=== PATIENT | male | born 1955 | race Caucasian/White ===

== ENCOUNTER → 2021-02-23 12:43 | Outpatient (CLI) | payer MEDICAID, SELFPAY ==
[2020-02-05 12:47] VITALS: BMI 27.9
--- NOTE | 2021-02-23 13:26 | SP.MBSS_ITS ---
Modified Barium Swallow - Patient Information Study Date: 02/23/21 Study Time: 12:50 Direct Billable Minutes: 110 Total Minutes procedure & reportin Diagnosis: dysphagia Referring Physician: Say Back Reason for Referral: This patient was referred for a modified barium swallow by Dr Say Back. The patient reports difficulty with swallowing, characterized by liquids getting stuck, they won't go up and they won't go down, for the reports that he is not able to breathe during these episodes and often runs to the sink to bring the liquid back up. The patient pointed to the area between his clavicular notch and thyroid notch to indicate the location where the sensation occurs. The patient further reports that these episodes occur approximately 3 to 4 times per month and have been ongoing for several years. 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 Surgical History: Cholecystectomy 2011, hernia repair RT/LT groin & umbilicus, tonsillectomy, presence of coronary artery angioplasty implant and graft 2007 Mental Status: WNL Respiratory Status: Oxygenating on Room Air - Penetration-Aspiration Scale Penetration-Aspiration Scale: OBJECTIVE ASSESSMENT OF SWALLOW FUNCTION (QUANTITATIVE ? PER TRIAL): PENETRATION / ASPIRATION SCALE (VILLAFANA): 1 = does not enter airway 2 = enters airway/above vocal folds/ejected 3 = enters airway/above vocal folds/not ejected 4 = enters airway/contacts vocal folds/ejected 5 = enters airway/contacts vocal folds/not ejected 6 = enters airway/below vocal folds/ejected 7 = enters airway/below vocal folds/not ejected despite effort 8 = enters airway/below vocal folds/no effort VIDEOFLOROSCOPIC SCALE SCORE (VILLAFANA): Grade I = aspiration of material that has penetrated into the laryngeal vestibule, intact cough reflex Grade II = aspiration < 10 % of the bolus, intact cough reflex Grade III = aspiration of < 10 % of the bolus, reduced cough reflex or aspiration of > 10 % of the bolus, intact cough reflex Grade IV = aspiration of > 10 % of the bolus, reduced cough reflex - Penetration-Aspiration Scale Score Thin Liquid via teaspoon Result: 2= enter airway/above vocal folds/ejected Thin Liquid via teaspoon Trial 2 Result: 1= does not enter airway Thin Liquid via large single sip from cup Result: 2= enter airway/above vocal folds/ejected Thin Liquid via small single sip from cup Result: 1= does not enter airway Pudding Result: 1= does not enter airway Pudding Trial 2 Result: 1= does not enter airway Cookie Result: 1= does not enter airway Thin Liquid via single sip from straw Result: 1= does not enter airway Thin Liquid via sequential sips from cup Result: 2= enter airway/above vocal folds/ejected - Oral Phase Labial Seal: No Labial Escape Tongue Control During Bolus Hold: Cohesive bolus between tongue to palatal seal Bolus Preparation/Mastication: Slow prolonged chewing/mashing with complete recollection Bolus Transport/Lingual Motion: Repetitive/disorganized tongue motion Oral Residue: Residue collection on oral structures - Pharyngeal Phase Initiation of Pharyngeal Swallow: Bolus head in pyriforms Soft Palate Elevation: No bolus between soft palate and pharyngeal wall Laryngeal Elevation: Min superior movement thyroid cart/min apprx aryte cart- epig petiole Anterior Hyoid Excursion: No anterior movement Epiglottic Movement: Partial inversion Laryngeal Vestibule Closure at Height of Swallow: Incomplete; narrow column of air/contrast in laryngeal vestibule Pharyngeal Stripping Wave: Present - complete Pharyngoesophageal Segment Opening: Parital distension and partial duration; parital obstruction of flow Tongue Base Retraction: Narrow column of contrast between tongue base & post. pharyngeal wall Pharyngeal Residue: Collection of residue within or on pharyngeal structures - Esophageal Phase Esophageal Clearance: Esophageal retention w/ retrograde flow through pharyngoesophageal seg - Diagnosis/Impression Diagnosis: mild oropharyngeal dysphagia Impression: This patient presents with mild oropharyngeal dysphagia characterized by the following: * slowed oral prep w/ reduced efficacy of lingual movement, requiring multiple lingual sweeps to clear thicker viscosity boluses from the oral cavity * reduced base of tongue retraction resulted in decreased pharyngeal contraction/pressure w/ residue retention on the BOT post deglutition * premature pharyngeal bolus entry/delayed swallow onset w/ thin liquid pooling in the pyriform sinuses prior to swallow initiation * significantly reduced hyolaryngeal excursion w/ minimal anterior hyoid excursion, resulting in incomplete epiglottic inversion and suboptimal pharyngoesophageal segment distention/duration of muscle relaxation w/ subsequent pharyngeal residue accumulation along the tip of the epiglottis and win the pyriform sinuses * laryngeal vestibule penetration occurred w/ thin liquids 2x; partial bolus clearance through the PES followed by transient penetration when swallowing the remainder of the bolus d/t reduced arytenoid to epiglottic petiole contact * penetration was above the level of the vocal folds and ejected completely * esophageal retention evident w/ retrograde bolus flow through the PES into the pyriform sinuses Highly suspect that the symptoms reported by the patient which precipitated referral for this MBS are due to reduced strength and coordination of the oropharyngeal swallowing mechanism, which is potentially exacerbated by cricopharyngeal spasm/dysfunction and impaired esophageal clearance w/ retrograde bolus flow of contrast from the esophagus through the pharyngoesophageal segment into the pharynx. The patient reports that this issue has been occurring 3-4x/month for several years. Further assessment and intervention should be considered if desired by the patient. He appears to be sufficiently compensating for the above mentioned deficits to date, but is at risk for aspiration and worsening of dysphagia if the patient were to decompensate in any way. - Recommendations Diet: Regular Textures, Thin Liquids Compensatory Strategies: Slow Rate, Sitting upright, Remain sitting upright for 30 minutes after PO intake Recommend Repeat Modified Barium Swallow: TBD Need for Skilled Speech Therapy Services: Yes - pharyngeal strengthening exercise program Recommended Referrals: ENT Consult - see above impression re: pharyngoesophageal segment/cricopharyngeus Education Completed: 1. Described result of evaluation., 2. Pt understands evaluation & agrees with goals and treatment plan. - Image Count: [phone] - Status Active ST Patient: Active - Contact Information [facility] Speech Therapy:: Colette Hyamn M.A., CCC-SHAKE MAKER [address] [place], [place] [address] [email or web address]
== END ==
PROVIDERS: PCP Preventive Medicine Occupational Medicine; Referring Provider Preventive Medicine Occupational Medicine; Visit Provider Preventive Medicine Occupational Medicine
DX: R13.12 Dysphagia, oropharyngeal phase (principal)
CPT/HCPCS: 74230; 92611

== ENCOUNTER → 2023-06-13 | Outpatient (CLI) | payer MEDICARE, MEDICAID, SELFPAY ==
--- NOTE | 2023-06-13 14:25 | CT_ITS ---
INDICATION: ventral hernia, hx of hernia repair -- No contrast EXAMINATION: CT ABDOMEN WITHOUT CONTRAST - CT Abdomen W/O Contrast Injection TECHNIQUE: Multiple axial images were obtained of the abdomen without oral or IV contrast. A radiation dose optimization technique was used for this scan. IV Contrast dosage and agent: None. Oral contrast: None. RADIATION DOSAGE (If Supplied By Facility): CTDIvol = ( 10.47 ) mGy, DLP = ( 332.47 ) mGycm COMPARISON: Abdominal ultrasound February 07, 2014; CT abdomen and pelvis February 03, 2012 FINDINGS: LOWER CHEST: Lung bases are clear. No cardiomegaly or pericardial effusion. Atherosclerotic calcification seen in the coronary arteries and distal descending thoracic aorta. LIVER: Homogeneous. No focal mass. GALLBLADDER AND BILIARY TREE: Surgical clips of prior cholecystectomy noted at the gallbladder fossa. No intra- or extrahepatic biliary ductal dilation. PANCREAS: No focal cystic or solid mass. SPLEEN: Normal size without focal cystic or solid mass. ADRENAL GLANDS: No nodules. KIDNEYS AND URETERS: Normal renal size and position. 1 mm calcification that may be a nonobstructing calyceal stone is again seen at the mid pole of the right kidney. No hydronephrosis or nephrolithiasis. PERITONEUM: No ascites or free air. No other fluid collection. Just below the inferior margin of the appendix near the edge of the [id number] is a pair of metal surgical clips in the right lower quadrant. BOWEL: No stomach or bowel distension. No focal inflammatory change. LYMPH NODES: No enlarged mesenteric or retroperitoneal lymph nodes. VESSELS: Diffuse moderate atherosclerotic calcific plaquing of the abdominal aorta and proximal iliac arteries again noted. There is 2.2 cm fusiform dilatation of the distal infrarenal aorta. ABDOMINAL WALL: Stable 1 cm midline supraumbilical abdominal wall defect allowing for a stable 3.4 x 2.4 x 3.15 cm herniation of fat. BONES: Minor degenerative changes of the lumbar spine. No lytic or blastic abnormality. CT/Abdomen without IV Contrast IMPRESSION: 1. Stable small, fat-containing, midline supraumbilical anterior abdominal wall hernia. 2. Prior cholecystectomy. 3. Atherosclerotic vascular calcifications again seen. 2.2 cm fusiform dilatation of the distal infrarenal aorta. 4. Stable 1 mm nonobstructing stone at the midpole of the right kidney. No hydronephrosis. Electronically Signed: Yoel Jackson MD at 15:44 EDT Reading Location ID and State: [id number] / Unknown , Service support ,
== END | disposition home or self-care (01) ==
LOC: CT 14:21
PROVIDERS: PCP Preventive Medicine Occupational Medicine; Referring Provider Surgery; Visit Provider Surgery
DX: K46.9 Unspecified abdominal hernia without obstruction or gangrene (principal)
CPT/HCPCS: 74150

== ENCOUNTER → 2023-06-30 | Outpatient (CLI) | payer MEDICARE, MEDICAID, SELFPAY ==
--- NOTE | 2023-06-30 11:01 | CDU_ITS ---
Reason For Study: Right Retinal Artery Branch Occlusion Rt. Velocities/BP Lt. Velocities/BP Prox CCA 71.0/8.4 cm/sec. Prox CCA 58.9/14.9 cm/sec. Mid CCA 62.2/14.9 cm/sec. Mid CCA 45.7/16.0 cm/sec. Dist CCA 57.2/16.2 cm/sec. Dist CCA 89.1/21.6 cm/sec. Prox ICA 59.8/15.4 cm/sec. Prox ICA 81.8/14.2 cm/sec. Mid ICA 71.4/22.3 cm/sec. Mid ICA 73.2/22.8 cm/sec. Dist ICA 101.4/22.8 cm/sec. Dist ICA 63.0/21.5 cm/sec. Rt. ICA/CCA = 1.6. Lt. ICA/CCA = 1.8. Prox ECA 92.7/19.0 cm/sec. Prox ECA 92.4/19.4 cm/sec. Rt. Vert. 63.4/14.2 cm/sec. Lt. Vert. 40.2/11.7 cm/sec. Right Extracranial There is heterogeneous, irregular atherosclerotic plaque noted in the right common carotid artery. There is heterogeneous, irregular atherosclerotic plaque noted in the right internal carotid artery. There is heterogeneous, irregular atherosclerotic plaque noted in the right external carotid artery. Antegrade flow is noted in the right vertebral artery. Left Extracranial There is heterogeneous, irregular atherosclerotic plaque noted in the left common carotid artery. There is heterogeneous, irregular atherosclerotic plaque noted in the left internal carotid artery. There is heterogeneous, irregular atherosclerotic plaque noted in the left external carotid artery. Antegrade flow is noted in the left vertebral artery. Procedure Carotid Duplex 02695. This is a Carotid Duplex examination using B-mode, color flow and specral Doppler. The exam was diagnostic. Exam performed in department. VL/Carotid Duplex Ultrasound Interpretation Summary Mild (<50%) stenosis right extracranial internal carotid. Mild (<50%) stenosis left extracranial internal carotid. Patent and antegrade vertebrals bilaterally. Ordering Physician: Jayesh Stein Referring Physician: Say Back Performed By: Kelvin Ryder RVT
== END | disposition home or self-care (01) ==
LOC: CVS 11:00
PROVIDERS: PCP Preventive Medicine Occupational Medicine; Referring Provider Ophthalmology; Visit Provider Ophthalmology
DX: H34.231 Retinal artery branch occlusion, right eye (principal)
CPT/HCPCS: 93880

== ENCOUNTER 2023-08-28 11:12 | Day surgery (SDC) | payer MEDICARE, MEDICAID, SELFPAY ==
[2023-08-21 10:26] LABS: Absolute Lymphocyte Count 4.97 X10^3/uL (0.83-4.51); Absolute Neutrophil Count 6.4 X10^3/uL (2.0-7.7); Basophil# 0.07 X10^3/uL; Basophil% 0.5 % (0-1); Eosinophil# 0.29 X10^3/uL; Eosinophils% 2.3 % (0-5); Hematocrit 44.6 % (40-54); Hemoglobin 14.5 g/dL (13.0-16.5); Lymphocyte # 4.97 X10^3/ul (0.83-4.51); Lymphocyte % 38.8 % (19-41); Mean Corp Hgb Conc 32.5 g/dL (32-36); Mean Corpuscular Hgb 28.2 pg (27.0-32.0); Mean Corpuscular Volume 86.6 fL (80-94); Mean Platelet Vol. 9.2 fl (6.2-12.0); Monocyte# 1.01 X10^3/uL; Monocyte% 7.9 % (0-10); NRBC Flagged by Analyzer 0 % (0-5); Neutrophil # 6.43 X10^3/uL (2.7-7.7); Neutrophil % 50.3 % (47-70); Platelet Count 334 K/mm3 (150-450); RBC Distribution Width CV 14.5 % (11.6-14.6); RBC Distribution Width SD 46.4 fl (35.1-43.9); Red Blood Count 5.15 M/mm3 (4.6-6.2); White Blood Count 12.8 K/mm3 (4.4-11.0)
[2023-08-21 11:01] LABS: Hemoglobin A1c 6.2 % (3.8-5.6)
[2023-08-21 11:06] LABS: Anion Gap 6 (5-15); BUN 12 mg/dL (7-18); BUN/Creat Ratio 10.3 RATIO (10-20); Calcium,Total 9.2 mg/dL (8.5-10.1); Chloride 108 mmol/L (98-107); Creatinine, Serum 1.17 mg/dL (0.70-1.30); EST Glomerular Filtration Rate 66 mL/min (>60); Est Glom Filt Rate - Afr Amer 80 mL/min (>60); Glucose 197 mg/dL (74-106); Potassium 3.6 mmol/L (3.5-5.1); Sodium Level 139 mmol/L (136-145)
[2023-08-28 11:46] VITALS: BP 169/75; PULSE 78; RESP 18; TEMP 36.2; O2SAT 100; BMI 25.0
[2023-08-28] MEDS: Lactated Ringers 1,000 ML 15 ML IV ×2 (11:54→14:39)
--- NOTE | 2023-08-28 11:56 | PCM.HP.BLA ---
History and Physical Date of Admission: 08/28/23 Date of Service: 08/07/23 MR#: [id number] Acct: [id number] Name: ESTEBAN JAMISON . Rep #: [id number] : 1955 Provider: Dr. Chary Fontaine MD Age/Sex: 68/M Location: [facility] Status: Signed Intake Vital Signs 06/09/2309:42 08/07/2314:09 Height 5 ft 6 in 5 ft 6 in Weight: 166 lb 164 lb 4 oz BMI 26.8 26.5 BP 134/78 H 163/91 H Blood Pressure Location Rt brachial Rt brachial Position Sitting Sitting Respiration 17 17 Pulse 71 67 Pulse Source Monitor Monitor Temp 98.0 F Temp Source Tympanic Pulse Oximetry (%) 97 Intake Visit Reasons: Update H&P Chief Complaint: update h&p Allergies atorvastatin calcium [From Lipitor] Adverse Reaction (Verified 08/07/23 14:11) Pain in joints Medications metformin 500 mg tablet 500 mg PO BID 02/04/14 [History Confirmed 08/07/23] fenofibrate 160 mg tablet 160 mg PO DAILY #30 tabs 12/17/18 [Rx Confirmed 08/07/23] rosuvastatin 40 mg tablet (Crestor) 40 mg PO DAILY 06/05/19 [History Confirmed 08/07/23] lisinopril 40 mg tablet 40 mg PO DAILY #90 tabs 12/13/21 [Rx Confirmed 08/07/23] nitroglycerin 0.4 mg sublingual tablet 0.4 mg sublingual Q5M PRN Chest Pain #25 tabs 03/21/22 [Rx Confirmed 08/07/23] aspirin 325 mg tablet,delayed release 325 mg PO DAILY@0800 PRN 04/28/23 [History Confirmed 08/07/23] clopidogrel 75 mg tablet 75 mg PO DAILY #90 tabs 04/28/23 [Rx Confirmed 08/07/23] [facility] Medical History Acute TN, anterior wall, subsequent episode of care Atherosclerotic heart disease of [place] coronary artery without angina pectoris Chest pain Dyspnea Essential hypertension Hyperlipidemia Long-term use of high-risk medication Old myocardial infarction Presence of stent in coronary artery (~08/2008) Syncope and collapse Ventral incisional hernia without obstruction or gangrene Surgical History (Updated 08/07/23 @ 14:09 by Desirae Collado) History of cataract surgery History of cholecystectomy (~02/2012) History of hernia repair History of tonsillectomy History of umbilical hernia repair Presence of coronary angioplasty implant and graft (~08/2008) Family History Father CAD (coronary artery disease) Diabetes Thyroid disorder Hypertension Cancer lungMother Hypertension AneurysmBrother CAD (coronary artery disease)Sister Congestive heart failure Social History Smoking Status: Current every day smoker alcohol intake: current HPI HPI HPI: 68-year-old male presents due to ventral hernia to discussed CT abdomen pelvis and surgery. Discussed patient's CAT scan does show his current ventral hernia is directly superior to the previous hernia repair with mesh. Patient states he is still having tenderness in that area but it is reducible. ROS General General: Yes weight change and fatigue; No appetite, colon cancer, breast cancer or weakness HEENT HEENT: Yes difficulty swallowing and eye surgery; No eye injury, swollen glands or hoarseness Endo Endocrine: Yes diabetes mellitus; No thyroid disease, thyroid cancer, Hair loss, heat intolerance or cold intolerance Skin Skin: No rash or changing moles Breast Breast: No left breast lump, right breast lump, nipple discharge, breast pain, abnormal mammogram, abnormal US or breast enlargement Musc Musculoskeletal: Yes back problems and arthritis; No rheumatoid arthritis, gout or joint pain Cardio Cardiovascular: No murmur, pacemaker, heart disease, atrial fibrillation, high blood pressure, heart attack, heart stent, palpitations, shortness of breat with exertion or chest pain Psych Psychiatric: No depression, anxiety or hearing voices Resp Respiratory: No shortness of breath, No sleep apnea, No cough, No COPD, No asthma, No emphysema and No wheezing Gastro Gastrointestinal: No abdominal pain, No nausea or vomiting, No diarrhea, No constipation, No blood in stool, No acid reflux, No hemorrhoids, No ulcers, No gallbladder problem and No black,tarry stools Jalen Hematologic: No blood thinners, No blood disorders, No bleeding, No anemia and No blood clots Neuro Neurologic: No system reviewed and no additional complaints, except as documented, No as per HPI, No abnormal gait, No abnormal hearing, No abnormal movements, No abnormal speech, No behavioral changes, No burning sensations, No confusion, No convulsions, No disequilibrium, No dizziness, No localized weakness, No frequent falls, No headache(s), No lack of coordination, No loss of vision, No memory loss, Yes numbness, No other visual disturbances, No radicular pain, No restless legs, No sensory deficit, No syncope, Yes tingling, No tremor(s), No weakness and No other Exam Const General: cooperative, healthy appearing, comfortable and no acute distress [facility] Head: normocephalic and atraumatic Neck Neck: supple Resp Effort & Inspection: normal respiratory effort Cardio Rate: regular rate GI Inspection: non-distended Palpation: soft, hernia ventral (Reducible) and nontender Other: Patient does have a reducible ventral hernia Skin General: no rashes or lesions noted Neuro General: CN's II-XI intact bilaterally Extrem General: normal to inspection Psych Mental Status: mental status grossly normal Attitude: cooperative Assessment and Plan Assessment and Plan (1) Ventral hernia: Status: Acute Plan We will plan for an open hernia repair with mesh, possible laparoscopic, possible removal of mesh. Discussed with patient CT abdomen pelvis that showed that his new hernia defect is directly superior to his previous mesh. Discussed with patient unsure if I will be able to do a smaller mesh under an open approach if there is not a landing zone for the mesh to lay flat. Discussed that if this is not the case would plan to do a laparoscopic placement of mesh but I would not be planning to remove the previous mesh if it is intact well. Discussed the procedure including not limited to risk of bleeding, infection, injury to another organ, recurrent hernia, and anesthesia. Patient was agreeable with plan. Had no further questions this time. Agreed to proceed. Chary Fontaine M.D. Pager: [phone] [facility] [address] [place] [address], [facility], [address] [place] [address] Office: [phone] Coding Level of Care Code Off vis,est,level 3 Diagnoses Ventral hernia K43.9 08/08/23 0728 <Electronically signed by Chary Fontaine MD> Date Chary Fontaine MD
[2023-08-28 12:24] LABS: Bedside Glucose 110 mg/dL (74-106)
[2023-08-28] MEDS: Cefazolin 2 GM in 0.9% Normal Saline (100mL Bag) 100 ML IV (12:53)
--- NOTE | 2023-08-28 13:51 | OP.PCM_ITS ---
Report of Operation Date of Procedure: 08/28/23 Pre-Operative Diagnosis: Ventral hernia Post-Operative Diagnosis: Ventral hernia x2 Surgery/Procedure Performed:: Open/laparoscopic repair of ventral hernias with mesh Surgeon: Chary Fontaine farm general manager: Dickson Nunez Type of Anesthesia: General/Supplemental Anesthesiologist: Phani Oneil Special Medications: Ancef 2 g IV x1 Specimen's removed: None Estimated Blood Loss (mL): 10 cc Fluids Replaced: Per anesthesia Description of Procedure: Patient was brought into the room placed supine on the operating table. Correct patient, procedure, site, positioning, special, was verified prior to procedure. General anesthesia was induced. The abdomen was prepped draped in usual sterile fashion. Supraumbilical midline incision was made with a 15 blade scalpel overlying ventral hernia. This was deepened with electrocautery. Fascial defect with noted to be about 1.2 cm. Emmanuel trocar was placed. Abdomen was insufflated with CO2 to 12 to 15 mmHg. Patient tolerated insufflation well. Additional 5 mm trocars were placed in the left upper quadrant left lower quadrant under direct visualization. Adhesions from omentum to previously placed umbilical mesh were as cleared with electrocautery and scissors?previous mesh was well incorporated. There is noted to be another smaller ventral hernia about 5 mm in size as well. Ventralight ST mesh with echo PS 11.4 cm diameter was chosen. This was placed through the Emmanuel trocar. The hernia was closed with a [id number] 0 Prolene suture. Mesh was assured to be laying flat with the positioning system. Secure strap was used to secure outer edge of the mesh, the positioning system was removed completely through a 5 mm trocar site. Additional secure strap tacks were placed. Trocars removed under direct visualization. Abdomen was allowed to collapse. Incisions were irrigated with saline. Hemostasis was assured. The skin of the supraumbilical incision and 5 mm sites were closed with 4-0 Monocryl. Steri- Strips and OpSite placed over the incisions. Pressure dressing was placed at the supraumbilical incision with gauze and tape. Patient was extubated. Patient tolerated procedure well and was taken to the postanesthesia care unit in stable condition. Grafts/Implants Used: Ventralight ST mesh 11.4 cm ref [id number] Lot [id number] Complications none
[2023-08-28] MEDS: Bupivacaine Mpf 0.5% 30 ML VIAL (13:55)
--- NOTE | 2023-08-28 13:59 | DCINST_ITS ---
Discharge Instructions Diet Discharge Diet: No restrictions Activity Discharge Activity: May Not Drive (while taking narcotic pain medications.) May shower in (days): 1 Lifting Restrictions: no lifting >20 lbs x 2 wks, no strenuous exercise for 4 wks Dressing / Incision Call your doctor if your incision/area has: Continuous Slow Oozing, Sudden Increased Bleeding, Increased Pain/ Swelling, Increased Redness, Foul Smelling Discharge and Swelling at the incision site Call your doctor if you observe: Fever of 101 or Higher Remove Dressing in: 2 days (Keep supraumbilical pressure dressing in place for 2 days) Cleanse incision/area with: Soap & Water Additional Dressing/Incision Instructions:: Steri-Strips will fall off in 7 to 10 days, if they do not fall off okay to remove after 10 days. Follow Up Care Please Follow Up With: Chary Fontaine MD When: Call the office for a follow-up appointment 2 weeks; after 5 PM and on the weekends call [phone] with any concerns. Test Results: Test results from this visit will be discussed in further detail at your follow- up appointment, if applicable. Discharge Plan Admission Attending Provider: Chary Fontaine Primary Care Provider: Say Back Discharge Orders/Prescriptions Prescriptions: New oxycodone-acetaminophen 5-325 mg tablet 1 - 2 tab PO Q6H PRN (Reason: pain) 3 Days Qty: 14 0RF Continued fenofibrate 160 mg tablet 160 mg PO DAILY Qty: 30 11RF rosuvastatin [Crestor] 40 mg tablet 40 mg PO DAILY nitroglycerin 0.4 mg tablet, sublingual 0.4 mg SUBLINGUAL Q5M PRN (Reason: Chest Pain) Qty: 25 3RF metformin 500 MG tablet 500 mg PO DAILY baclofen 10 mg tablet 10 mg PO TID PRN (Reason: MUSCLE SPA) Patient Comments: take 1 tablet by mouth three times a day if needed for SPASM(S) aspirin [Adult Aspirin Regimen] 81 mg tablet,delayed release (DR/EC) 81 mg PO DAILY Hold Instructions: Resume on 08/29/23. lisinopril 40 mg tablet 40 mg PO DAILY Qty: 90 3RF Held clopidogrel 75 mg tablet 75 mg PO DAILY Qty: 90 3RF Hold Instructions: Resume on 08/29/23. Other Ambulatory Orders: 12 Lead EKG (Routine) Timeframe: [id number] Location: None Selected Ordered By: Dr. Aaron Jacques Referrals / Follow Up: Say Back DO [Primary Care Provider] - Disposition Disposition (needs filled in before D/C Order can be placed): Home, Self Care
[2023-08-28 14:11] VITALS: BP 131/82; BP 169/75; PULSE 88; RESP 16; TEMP 36.3; O2SAT 98
[2023-08-28 14:15] VITALS: BP 123/69; BP 169/75; PULSE 78; RESP 16; O2SAT 93
[2023-08-28 14:30] VITALS: BP 127/71; BP 169/75; PULSE 76; RESP 14; O2SAT 95
[2023-08-28 14:30] LABS: Bedside Glucose 119 mg/dL (74-106)
[2023-08-28 14:50] VITALS: BP 130/64; BP 169/75; PULSE 77; RESP 14; TEMP 36.6; O2SAT 97
[2023-08-28] MEDS: Oxycodone/Apap 5/325 Tablet PO (15:12)
[2023-08-28 15:35] VITALS: BP 169/75
== END 2023-08-28 15:38 | disposition home or self-care (01) ==
LOC: SDC 11:13 → AC 11:40
PROVIDERS: Anesthesiology; PCP Preventive Medicine Occupational Medicine; Referring Provider Surgery; Visit Provider Surgery
PROC: 0WQF4ZZ Repair Abdominal Wall, Percutaneous Endoscopic Approach (ICD-10-PCS; CPT 49591; principal; 2023-08-28 12:35)
DX: K43.2 Incisional hernia without obstruction or gangrene (principal); E11.9 Type 2 diabetes mellitus without complications; I25.10 Atherosclerotic heart disease of native coronary artery without angina pectoris; I25.2 Old myocardial infarction; I10 Essential (primary) hypertension; E78.00 Pure hypercholesterolemia, unspecified; F17.200 Nicotine dependence, unspecified, uncomplicated; Z79.02 Long term (current) use of antithrombotics/antiplatelets; Z79.82 Long term (current) use of aspirin; Z79.84 Long term (current) use of oral hypoglycemic drugs; Z79.899 Other long term (current) drug therapy
CPT/HCPCS: 49591; 00752; 36415; 80048; 82962; 83036; 85025; 93005; J7120; J2405

== ENCOUNTER → 2024-12-11 | Outpatient (CLI) | payer MEDICARE, SELFPAY ==
--- NOTE | 2024-12-11 09:05 | RAD_ITS ---
STUDY: X-RAY - ESOPHAGUS (BARIUM SWALLOW) WITH FLUOROSCOPY REASON FOR EXAM: Male, 69 years old. ACHALASIA TECHNIQUE: 68 fluoroscopic view(s) of the esophagus were obtained following swallowing of barium. FLUOROSCOPY TIME (if supplied): (46 seconds) minutes/seconds. 2.6 mGy. COMPARISON: None. FINDINGS: There is no demonstrated esophageal foreign body. There is no demonstrated stricture or mucosal abnormality. There is dilatation of the esophagus with the decreased peristaltic activity. There is narrowing at the gastroesophageal junction. Findings suggestive of a achalasia. The patient ingested a 12 mm tablet of barium. The tablet is trapped at the gastroesophageal junction. There is atherosclerotic calcification of the aortic arch with tortuosity of the descending aorta. Normal visualized pulmonary parenchyma. Normal visualized osseous structures of the thorax. RAD/Esophagus Single Contrast IMPRESSION: Findings suggestive of achalasia. The ingested 12 mm tablet of barium is trapped at the gastroesophageal junction. Electronically Signed: Evans Carvajal MD at 9:36 EST ,
== END | disposition home or self-care (01) ==
PROVIDERS: PCP Preventive Medicine Occupational Medicine; Referring Provider Internal Medicine Gastroenterology; Visit Provider Internal Medicine Gastroenterology
DX: K22.0 Achalasia of cardia (principal)
CPT/HCPCS: 74220

== ENCOUNTER → 2025-03-11 | Outpatient (CLI) | payer MEDICARE, MEDICAID, SELFPAY ==
--- NOTE | 2025-03-11 09:00 | PET_ITS ---
PROCEDURE: PET/CT TUMOR BASE -THIGH INIT 03/11/2025 REASON FOR EXAM: 69 y/o M with RIGHT LOWER LUNG MASS TECHNIQUE: Following the intravenous administration of radionucleotide, image acquisition on a dedicated PET/CT unit was performed at one hour post injection. A preliminary CT study encompassing the Skull base, neck, chest, abdomen, pelvis, and proximal thighs was performed for purposes of attenuation correction and anatomic localization. The proximal thighs were also included. The patient's blood glucose level was 78 mg/dL (allowable range: 50-180 mg/dL). RADIOPHARMACEUTICAL: 14.129 mCi 18F-FDG (Fluorodeoxyglucose F18) IV was injected into he patient. RADIATION DOSE SUMMARY: Effective Dose: Approximately 7 mSv for a standard whole-body PET scan Organ Doses: Varies by organ, with higher doses typically to the bladder, liver, and brain COMPARISON: COMPARISON FROM CT, PET OR OTHER PERTINENT EXAMS: No priors available. FINDINGS: Physiologic uptake: There may be expected metabolic uptake within the brain, tongue and floor of the mouth and larynx/vocal cords, heart, gavin (many normal individuals have hilar uptake in less than 3 nodes with mildly avid hilar nodes less than 2.7 SUV), liver and spleen, system, and GI tract and symmetric muscle uptake. FDG AVID AND NON-AVID LESIONS. Reported avid SUV values (g/mL*) are maximum SUV. NECK: There are no significant neck abnormalities. CHEST: Chest wall- There are no significant chest wall abnormalities. Axilla- There are no significant axillary abnormalities. Lung parenchyma-in the area of clinical concern, in the nodule of the posterior right lower lobe, increased SUV max is seen, of 2.9. This is concerning for a primary malignancy. Mediastinum- There are no significant hilar or mediastinal adenopathy. Pleura- There are no significant pleural abnormalities. Moderate coronary artery calcification is noted. 1 2 to listen to free or ABDOMEN: Stomach- No significant abnormalities. Liver- No significant abnormalities. Prior cholecystectomy. Spleen- No significant abnormalities. Pancrease- No significant abnormalities. Kidneys- No significant abnormalities. Bowel- Normal bowel activity. Spine- No significant abnormalities. Prominent arterial calcification is seen; no evidence of abdominal aortic aneurysm. Uptake was E was a Elvin raúl and once her name shows prior just leaving a message consistent answer PELVIS: Bowel- Normal physiologic bowel activity is identified. Masses- There are no pelvic masses. LOWER EXTREMITIES: Bones- With the use of bone window settings, there are no osteolytic or osteoblastic lesions. There are no FDG avid lesions within the visualized portion of the axial skeleton. PET/PET/CT Tumor Base -Thigh Init IMPRESSION: FDG avid-increased uptake with SUV max of 2.9 in the area of clinical concern o f the nodule of the posterior right lower lobe, concerning for the presence of malignancy. No additional focus of abnormal upt alfred is noted. Please note the low-dose CT scan was performed to facilitate PET image reconstr uction and anatomic localization and does not replace a diagnostic CT. Any diagnostic CT requested and performed at the time of the PET will be reported separately. Reading Location: [id number]
== END | disposition home or self-care (01) ==
LOC: ONC 08:52
PROVIDERS: PCP Preventive Medicine Occupational Medicine; Referring Provider Preventive Medicine Occupational Medicine; Visit Provider Preventive Medicine Occupational Medicine
DX: R91.8 Other nonspecific abnormal finding of lung field (principal)
CPT/HCPCS: 78815; A9552

== ENCOUNTER 2025-05-17 09:29 | Inpatient (IN) | payer MEDICARE, MEDICAID, SELFPAY ==
[2025-05-17] VITALS (16 sets, daily range): BP systolic 128–188; BP diastolic 54–94; PULSE 75–93; RESP 14–18; TEMP 36.3–36.8; O2SAT 94–100; BMI 27.8
[2025-05-17] MEDS: Ketorolac 30 MG/ML Syringe 15 MG IV (09:52)
[2025-05-17] MEDS: Triamcinolone Acetonide 40 MG/ML Vial IU (09:54)
[2025-05-17] MEDS: Lidocaine 1% (20 ml mdv) 20 ML Vial INFILT (09:54)
[2025-05-17 10:02] LABS: Erythrocyte Sedimentation Rate 45 mm/hr (0-20)
--- NOTE | 2025-05-17 10:11 | ED.VIS.BACK ---
HPI History of Present Illness Chief Complaint: Back Detail of Chief Complaint: Back pain that started prior to left knee pain and swelling Informant: patient Onset/Context/Timing Onset: Weeks (Back pain for approximately 1 week, knee pain for the past several days) Context: Sudden Onset Injury: - (No history of direct trauma. He did do some slight lifting prior to the onset of his back pain. Nothing with respect to the knee pain) Timing: Continuous (For both) Quality: Dull (Lower back) and Aching (Left knee) Location: Lumbar, Buttock and Left Leg Current Severity: Mild Maximum Severity: Moderate Worsened by: improves with Movement Relieved by: Nothing Associated Symptoms Associated Symptoms: Radiation to Left Leg and - (No status anesthesia or paresthesia.); Negative for Numbness, Tingling, Radiation to Right Leg, Fever, Abdominal Pain, Dysuria, Unable to Ambulate, Unable to Transfer, Urinary Retention, Urinary Incontinence, Constipation or Fecal Incontinence Narrative Narrative: Patient is a 69-year-old male. He has history of syncope and collapse, essential hypertension, coronary disease with stent placement, and GERD. He presents with atraumatic low back pain. Does have history of indirect trauma of lifting. He reported pain going down the posterior aspect of his left leg to his heel/foot. He denies any radicular pain at this time. He denied bowel bladder function. No saddle paresthesia or anesthesia. She had no recent dental procedure. He denies fever, chills night sweats. He does have history of back problems. With respect to the knee he states it began to swell and have pain. He denies history of gout or pseudogout. He denies any direct or indirect trauma. He had a prior injury where a lawnmower blade went into his knee. There is a scar noted. Prior similar symptoms: Yes and With Prior Back Pain Recent Illness/Hospitalization: No [facility] Medical History Diabetes High cholesterol Back pain Gastric reflux Smoker Cardiology follow-up encounter Presence of stent in coronary artery (~08/2008) Essential hypertension Ventral incisional hernia without obstruction or gangrene Hyperlipidemia Acute IN, anterior wall, subsequent episode of care Old myocardial infarction Syncope and collapse Dyspnea Chest pain Long-term use of high-risk medication Atherosclerotic heart disease of circle coronary artery without angina pectoris Home Medications ?Medication ?Instructions ?Recorded ?Last Taken ?Type fenofibrate 160 mg tablet 160 mg PO DAILY #30 tabs 12/17/18 05/16/25 Rx rosuvastatin 40 mg tablet (Crestor) 40 mg PO DAILY 06/05/19 05/17/25 History lisinopril 40 mg tablet 40 mg PO DAILY #90 tabs 12/13/21 05/17/25 Rx aspirin 81 mg tablet,delayed 81 mg PO DAILY 08/17/23 05/16/25 History release (Adult Aspirin Regimen) clopidogrel 75 mg tablet 75 mg PO DAILY #90 tabs 05/22/24 05/17/25 Rx ezetimibe 10 mg tablet 10 mg PO DAILY 05/17/25 05/17/25 History hydrocodone-acetaminophen 5-325mg 1 tab PO Q6H PRN PRN Pain 3 days 05/17/25 Unknown Rx 5mg-325mg #10 TABLETS metformin 500 mg tablet,extended 500 mg PO BID 05/17/25 05/17/25 History release 24 hr oxycodone-acetaminophen 5 mg-325 1 tab PO Q6H 05/17/25 05/16/25 History mg tablet pantoprazole 40 mg tablet,delayed 40 mg PO DAILY 05/17/25 05/17/25 History release Allergy/AdvReac Type Severity Reaction Status Date / Time atorvastatin calcium (From AdvReac Pain in Verified 05/17/25 09:30 Lipitor) joints Family History Father CAD (coronary artery disease) Diabetes Thyroid disorder Hypertension Cancer lung Mother Hypertension Aneurysm Brother CAD (coronary artery disease) Sister Congestive heart failure Surgical History History of ventral hernia repair (~08/2023) History of coronary artery stent placement History of cardiac catheterization History of cataract surgery Presence of coronary angioplasty implant and graft (~08/2008) History of umbilical hernia repair History of cholecystectomy (~02/2012) History of hernia repair History of tonsillectomy Social History Smoking Status: Current every day smoker tobacco type: cigarettes alcohol intake: current alcohol intake frequency: holidays/special occasions only substance use type: does not use caffeine: Yes ROS ROS ED Constitutional Constitutional ED: Denies chills, fever(s), subjective or sweats Eyes Eyes: Denies blurry vision or change in vision ENT ENT ED: Denies rhinorrhea or sore throat Cardiovascular Cardiovascular: Denies chest pain, orthopnea, palpitations or paroxysmal nocturnal dyspnea Respiratory/Chest Respiratory/Chest: Denies dyspnea, dyspnea on exertion, orthopnea or paroxysmal nocturnal dyspnea Gastrointestinal Gastrointestinal: Denies abdominal pain, constipation, diarrhea, melena, nausea or vomiting Genitourinary Genitourinary ED: Denies dysuria, hematuria or urinary frequency Musculoskeletal Musculoskeletal: Reports back pain and other Details: Left knee pain and swelling ; Denies arthralgias, myalgias or neck pain Integumentary Denies abscess, Abrasions or rash Neurologic Neurologic: Denies headache(s), paresthesias or weakness Endocrine Endocrinology: Denies cold intolerance or heat intolerance Hematologic/Lymphatic Hematologic/Lymphatic: Denies easy bleeding or easy bruising EXAM Physical Exam Const Vital Signs: 05/17/25 09:30 Temperature 98.1 F Temperature Source Temporal Pulse Rate 93 Respiratory Rate 14 Blood Pressure 184/94 H Blood Pressure Mean 124 Pulse Ox 99 Oxygen Delivery Method Room Air Positive well nourished and well developed General Appearance ED: well developed and NAD HEENT Reports moist mucous membranes HEENT Narrative: Head is atraumatic and normocephalic. Ears normal. Nares patent. Eyes PERRL and EOMs intact bilaterally General Eye ED: Negative for pale conjunctiva or scleral icterus Neck no lymphadenopathy, supple and no JVD Resp normal respiratory effort and clear to auscultation bilaterally Cardio regular rate, regular rhythm, S1 normal heart sound, S2 normal heart sound and no murmurs GI normal to inspection, nondistended, normoactive bowel sounds, soft to palpation, non-tender, non-distended and no masses Back/Spine normal to inspection; Negative for no thoracic nor lumbar tenderness Back/Spine Narrative: Midline posterior lumbar pain. Movement does cause him pain. Straight leg test is negative bilaterally. Patellar reflex was not assessed on the left knee because of the significant swelling and pain. DTRs are symmetric. EHLs intact bilateral. He has a palpable PT and DP pulse bilaterally 3+. Normal sensation L3-S1 dermatome. 5/5 strength with plantar and dorsiflexion of the foot. Quadricep strength was not assessed because of his left knee pain and effusion. He still has hair on his toes. There are no dermatologic lesions noted. General Back: Negative for CVA tenderness Cervical Spine: Negative for paracervical muscle tenderness Lumbar Spine / Lower Back: ROM limited and straight leg raise negative bilaterally Extremity normal to inspection and no clubbing, cyanosis or edema Neuro oriented x3 and no sensory deficits noted Sensorium / Orientation: alert Deep Tendon Reflexes: Rt Patellar (L4): 2+, Rt Ankle (S1): 2+ and Lt Ankle (S1): 2+ Deep Tendon Reflexes Back: Rt Patellar (L4): 2+, Rt Ankle (S1): 2+ and Lt Ankle (S1): 2+ Plantar Reflex: Downgoing: bilateral (There was no clonus noted either) Psych mental status grossly normal Skin no rashes or lesions noted and no wounds MDM MDM MDM Narrative Medical decision making narrative: Suspect back pain is a muscular etiology. He does not have recent imaging and the fact that he is elderly diabetic will obtain x-ray to assess for degenerative changes versus spondylolisthesis versus lytic or blastic lesions. With respect to the knee need to evaluate for crystal induced versus osteogenic arthritis versus pyogenic arthritis. The knee does not feel slightly warm. Blood pressure is elevated which may due to the fact that he is in pain. He received 15 mg of ketorolac IV push. Workup included x-ray of the back and knee, blood work which included CBC, electrolyte panel, CRP and ESR. Lab Data Attestation: I reviewed the patient's lab results. Lab results narrative: ESR is slightly elevated 45. C-reactive protein is elevated at 19.8. White count is elevated 17.5 thousand. Differential is unremarkable. H&H is unremarkable. Labs: Laboratory Results - last 24 hr 05/17/25 05/17/25 09:50 11:32 WBC 17.5 H RBC 5.43 Hgb 15.5 Hct 46.6 MCV 85.8 MCH 28.5 MCHC 33.3 RDW Std Deviation 44.8 H RDW Coeff of Kranthi 14.3 Plt Count 297 MPV 9.1 Immature Gran % (Auto) 0.200 Neut % (Auto) 51.0 Lymph % (Auto) 37.9 [place] % (Auto) 9.4 Eos % (Auto) 1.0 Baso % (Auto) 0.5 Absolute Neuts (auto) 8.9 H Absolute Lymphs (auto) 6.61 H Nucleated RBC % 0 ESR 45 H Sodium 135 Potassium 4.0 Chloride 101 Carbon Dioxide 20.2 L Anion Gap 14 BUN 12 Creatinine 0.87 Estim Creat Clear Calc 80.05 Est GFR (MDRD) Non-Af 94 BUN/Creatinine Ratio 13.7 Glucose 112 H Calcium 9.6 Total Bilirubin 0.47 AST 19 ALT 9 Alkaline Phosphatase 66 C-React Prot Ext Range 19.80 H Total Protein 7.1 Albumin 4.0 Globulin 3.1 Albumin/Globulin Ratio 1.3 Fluid Crystals NO CRYSTALS SEEN Fluid Crystal Source SYNOVIAL Fl Crystal Path Review Will follow Synovial Source LT KNEE Synovial Color Yellow Synovial Appearance Cloudy Synovial Viscosity Mod. Viscous Synovial WBC 15.3600 H Synovial RBC 0.008 H Synovial Tot Cell Ct 15.3980 H Synov Polynuclear WBCs 11.969 Synov Mononuclear WBCs 1.353 Synovial Neutrophils 73 H Synovial Lymphocytes 1 Synovial Monocytes 26 Synovial Polynuclear % 89.8 Synovial Mononuclear % 10.[address] Comment May follow Radiography Chest X-Ray - ED: 2 View (2 view x-ray of the LS spine feels minimal degenerative changes with lipping of the vertebral body anteriorly. There is also significant ossification of the aorta and iliac vessels. There is no dilatation to suggest aneurysm. This was independent reviewed and interpreted by me as well.) and Read by ED Physician (Three-view x-ray of the knee reveals chondrocalcinosis with effusion. There is also some mild degenerative changes noted. This was independently reviewed interpreted by me at 1119.) Diagnostic Testing: Clinical Impression(s) from Imaging Studies Knee X-Ray 05/17/25 11:10 IMPRESSION: No acute fracture or dislocations. Mild to moderate degenerative changes of the left knee with chondrocalcinosis. Moderate soft tissue edema. Large joint effusion. No radiographic foreign body. Reading Location: [id number] Lumbar Spine X-Ray 05/17/25 11:10 IMPRESSION: No acute process identified. Degenerative disc disease Reading [facility] Management Discussion w/another healthcare provider: [employer] (Spoke to Dr. Gonzales. He will be in to see patient and take him to the OR for pyogenic arthritis based on Gram stain.) Procedures Other Procedures Procedure(s): Arthrocentesis left knee: Patient was informed the risk benefits. Was given opportunity ask questions. None were asked. He was informed of my complications. Patient was prepped draped sterile manner. There was anesthetized with 1% lidocaine by local infiltration. 70 cc of a slightly turbid initially bloody fluid was aspirated. A mixture of 9 cc lidocaine 1 cc Kenalog was injected after aspiration of fluid. Fluid was sent for appropriate studies. Discharge Plan Dx/Rx/DC Orders Clinical Impression: Septic arthritis of knee, left, Hyperlipidemia, Nicotine dependence, Essential hypertension, Acute bilateral low back pain, DDD (degenerative disc disease), lumbar, Abdominal aortic atherosclerosis, Chondrocalcinosis of left knee Disposition Disposition: Acute Care Hospital [facility]
--- OUTSIDE RECORDS SUMMARY | 2025-05-17 10:17 | XMS RPT_ITS | CCD ---
Author Organization [facility] Care Team Providers Care Machine Washer Name Role Phone Augusta Evans Unavailable CAMDEN BACK DO Primary Care Physician [phone] CAMDEN BACK DO Primary Care Physician [phone] Dr. Camden Back Primary Care Provider Dr. Camden Back Referring Provider [phone] Parag MORGAN, MYRNAC Mariaelena Attending Provider Dr. Chary Fontaine Attending Provider Dr. Aaron Roy Attending Provider Dr. Camden Back Primary Care Provider Dr. aCmden Back Referring Provider [phone] Dr. Jayesh Stein Referring Provider Dr. Chary Fontaine Referring Provider [phone] Dr. Chary Fontaine Other Provider CAMDEN BACK DO Attending Unavailable CAMDEN BACK DO Primary Care Unavailable CAMDEN BACK DO Attending Unavailable CAMDEN BACK DO Primary Care Unavailable Camden Back DO Primary Care Provider [phone] CAMDEN BACK DO Primary Care Unavailable CAMDEN BACK DO Attending Unavailable CAMDEN BACK DO Attending Unavailable CAMDEN BACK DO Primary Care Unavailable DR LOCO WILDE MD Attending Unavailjane e CAMDEN BACK DO Primary Care Unavailable Dr. Camden Back DO Primary Care Provider [phone] Dr. Loco Wilde MD Attending Provider Dr. Loco Wilde MD Referring Provider Dr. Camden Back DO Attending Provider Dr. Camden Back DO Referring Provider Cecil Sterling Attending Unavailable Camden Back Primary Care Unavailable Camden Back Referring Unavailable Camden Back Primary Care Unavailable Loco Wilde Attending Unavailable Loco Wilde Referring Unavailable Camden Back Primary Care Unavailable Camden Back Attending Unavailable Camden Back Referring Unavailable Allergies Allergy Classification Reported Allergen(s) Allergy Type Date of Onset Reaction(s) Facility (2 sources) atorvastatin drug allergy 3 muscle aches [facility] Work Phone: (3 sources) NKA drug allergy 2 [facility] Work Phone: (2 sources) ezetimibe; Translations: [ezetimibe] Drug Allergy 4 Pounding heart (finding) [facility] (1 source) atorvastatin Drug Allergy 4 [facility] Repository Medications Current Medications Medication Drug Class(es) Dates Sig (Normalized) Sig (Original) acetaminophen 325 mg / oxyCODONE hydrochloride 5 mg oral tablet (7 sources) Opioid Agonist Start: 09-24-2024 End: 11-22-2024 take 1 tablet by mouth every six hours acetaminophen-oxy CODONE 325 mg-5 mg oral tablet Dose = 1 tab(s), Oral, q6hr, # 120 tab(s), 0 Refill(s), Pharmacy: [facility] #[id number], Cervical disc disease Chronic neck and back pain, 167.5, cm, 10/21/24 7:55:00 EST, Height, 76.2, kg, 10/21/24 7:55:00 EST, Dosing Weight Start Date: 10/23/24 Stop Date: 11/22/24 Status: Ordered Start: 01-29-2024 End: 02-28-2024 take 1 tablet by mouth every six hours acetaminophen-oxyCODONE 325 mg-5 mg oral tablet Dose = 1 tab(s), Oral, q6hr, # 120 tab(s), 0 Refill(s), Pharmacy: [facility] #[id number], Cervical disc disease, 75.1, cm, 11/01/23 10:58:00 EST, Height, 75.1, kg, 11/01/23 10:58:00 EST, Dosing Weight Start Date: 01/29/24 Stop Date: 02/28/24 Status: Ordered Start: 08-28-2023 End: 09-12-2023 Oxycodone-Acetaminophen 5-32 5 mg tablet Discontinued 1 - 2 {tbl} PO EVERY 6 HOURS as needed for pain 14 August 28, 2023 September 12, 2023 2:36pm Start: 08-28-2023 take 1 tablet by varsha th every six hours Oxycodone-Acetaminophen Active 1 - 2 TABLET PO EVERY 6 HOURS 14 August 28, 2023 Start: 11-02-2022 End: 12-02-2022 take 1 tablet by mouth every six hours acetaminophen-oxyCODONE 325 mg-5 mg oral tablet Dose = 1 tab(s), Oral, q6hr, # 120 tab(s), 0 Refill(s), Pharmacy: [facility] #[id number], Cervical disc disease, 168, cm, 11/02/22 10:04:00 EST, Height, 77.5, kg, 11/02/22 10:04:00 EST, Dosing Weight Start Date: 11/02/22 Stop Date: 12/02/22 Status: Ordered Start: 11-01-2021 End: 12-01-2021 take 1 tablet by mouth every six hours acetaminophen-oxyCODONE 325 mg-5 mg oral tablet Dose = 1 tab(s), Oral, q6hr, # 100 tab(s), 0 Refill(s), Pharmacy: [facility] [facility], Cervical disc disease, 168, cm, 08/04/21 13:17:00 EDT, Height, 80.7, kg, 08/04/21 13:17:00 EDT, Dosing Weight Start Date: 11/01/21 Stop Date: 12/01/21 Status: Ordered amLODIPine 10 mg oral tablet (5 sources) Dihydropyridine Calcium Channel Antonio Start: 05-01-2024 End: 06-05-2025 amLODIPine 10 mg oral tablet Dose : 10 mg = 1 tab(s), Oral, qDay, # 100 tab(s), 3 Refill(s), Pharmacy: [facility] #[id number], 167.5, cm, 05/01/24 11:04:00 EDT, Height, kg, 05/01/24 11:04:00 EDT, Dosing Weight Start Date: 05/01/24 Stop Date: 06/05/25 Status: Ordered Start: 11-02-2022 amLODIPine 10 mg oral tablet Dose : 10 mg = 1 tab(s), Oral, qDay, # 90 tab(s), 3 Refill(s), Pharmacy: [facility] #[id number], 168, cm, 11/02/22 10:04:00 EST, Height, kg, 11/02/22 10:04:00 EST, Dosing Weight Start Date: 11/02/22 Status: Ordered Start: 11-03-2021 amLODIPine 10 mg oral tablet Dose : 10 mg = 1 tab(s), Oral, qDay, # 90 tab(s), 3 Refill(s), [facility], 168, cm, 11/03/21 11:40:00 EST, Height, kg, 11/03/21 11:40:00 EST, Dosing Weight Start Date: 11/03/21 Status: Ordered aspirin 81 mg delayed release oral tablet (20 sources) Nonsteroidal Anti-inflammatory Drug Start: 08-17-2023 take 1 tablet by mouth once daily Aspirin (Adult Aspirin Regimen) 81 mg tablet,delayed release (DR/EC) Active 81 mg PO DAILY August 17, 2023 12:00am Start: 02-04-2014 End: 04-28-2023 take 1 tablet by mouth once daily Aspirin 325 MG tablet Discontinued 325 mg PO DAILY@0800 February 04, 2014 12:00am April 28, 2023 1:02pm Start: 05-12-2011 take 1 tablet by varsha once daily ASPIRIN 325 MG TABS One tablet by mouth daily ASPIRIN [id number] Giles Peters MD Start: 09-23-2008 take 1 dose by mouth once lauri y aspirin Dose : 81 mg =, PO, Daily, 0 Refill(s), current med (Hx) Start Date: 09/23/08 Status: Ordered Start: 09-23-2008 aspirin 81 mg, PO, Daily, 0, 0 Start Date: 09/23/08 Status: Ordered baclofen 10 mg oral tablet (6 sources) gamma-Aminobutyric Acid-ergic Agonist Start: 11-02-2022 take 1 tablet by mouth three times daily as needed Baclofen 10 mg tablet Active 10 mg PO THREE TIMES A DAY as needed for MUSCLE SPA August 17, 2023 12:00am cephalexin 500 mg oral capsule (8 sources) Cephalosporin Antibacterial Start: 09-03-2019 take 1 capsule by mouth four times daily cephALEXin (KEFLEX) 500 mg capsule Take 1 capsule by mouth four times daily. 28 capsule 09/03/2019 Active clopidogrel 75 mg oral tablet (20 sources) P2Y12 Platelet Inhibitor Start: 09-23-2008 End: 05-22-2024 take 1 tablet by mouth once daily Clopidogrel 75 mg tablet Active 75 mg PO DAILY May 22, 2024 10:53am Start: 09-23-2008 Plavix 75 mg, PO, Daily, 0, 0 Start Date: 09/23/08 Status: Ordered 1 ml evolocumab 140 mg/ml prefilled syringe (2 sources) PCSK9 Inhibitor Start: 08-14-2024 End: 2025 inject 1 dose by subcutaneous injection every other week Repatha Prefilled Syringe 140 mg/mL subcutaneous solution Dose : 140 mg =, Subcutaneous, q2wk, # 2 EA, 11 Refill(s), Pharmacy: [facility] #[id number], Hyperlipidemia, 167.5, cm, 08/14/24 13:01:00 EDT, Height, kg, 08/14/24 13:01:00 EDT, Dosing Weight Start Date: 08/14/24 Stop Date: 07/16/25 Status: Ordered fenofibrate 160 mg oral tablet (20 sources) Peroxisome Proliferator Receptor alpha Agonist Start: 05-01-2024 End: 06-05-2025 fenofibrate 160 mg oral tablet Dose : 160 mg = 1 tab(s), Oral, qDay, # 100 tab(s), 3 Refill(s), Pharmacy: [facility] #[id number], 167.5, cm, 05/01/24 11:04:00 EDT, Height, kg, 05/01/24 11:04:00 EDT, Dosing Weight Start Date: 05/01/24 Stop Date: 06/05/25 Status: Ordered Start: 09-11-2013 End: 12-17-2018 take 1 tablet by mouth once daily Fenofibrate 160 mg tablet Discontinued 160 mg PO DAILY March 28, 2018 9:00am December 17, 2018 4:03pm hydroCHLOROthiazide 12.5 mg / lisinopril 10 mg oral tablet (8 sources) Thiazide Diuretic, Angiotensin Converting Enzyme Inhibitor take 1 tablet by mouth once daily lisinopril-hydrochlorothiazide 10-12.5 mg per tablet Take 1 tablet by mouth once daily. Active lisinopril 40 mg oral tablet (20 sources) Angiotensin Converting Enzyme Inhibitor Star t: 02-25 End: 08-16 lisinopril 40 mg oral tablet Dose : 40 mg = 1 tab(s), Oral, qDay, # 100 tab(s), 3 Refill(s), [facility]acy: [facility] #[id number], 75.1, cm, 11/01/23 10:58:00 EST, Height, kg, 11/01/23 10:58:00 EST, Dosing Weight Start Date: 11/01/23 Stop Date: 12/05/24 Status: Ordered Start: 05-12-2011 End: 03-09-2021 take 1 tablet by mouth once daily Lisinopril 20 mg tablet Discontinued 20 mg PO DAILY December 11, 2020 1:39pm March 09, 2021 3:00pm metFORMIN hydrochloride 500 mg oral tablet (18 sources) Biguanide Start: 02-04-2014 End: 06-05-2025 metFORMIN 500 mg oral tablet EXTENDED RELEASE Dose : 500 mg = 1 tab(s), Oral, BID, # 200 tab(s), 3 Refill(s), Pharmacy: [facility] #[id number], 167.5, cm, 05/01/24 11:04:00 EDT, Height, kg, 05/01/24 11:04:00 EDT, Dosing Weight Start Date: 05/01/24 Stop Date: 06/05/25 Status: Ordered Start: 02-04-2014 take 1 tablet by varsha th once daily Metformin 500 MG tablet Active 500 mg PO DAILY February 04, 2014 12:00am nitroglycerin 0.4 mg sublingual spray (1 source) Start: 09-23-2008 nitroglycerin 0.4 mg sublingual spray 1 spray(s), SL, q5min, 15 g, 0, 0, as needed only Start Date: 09/23/08 Status: Ordered pantoprazole 40 mg delayed release oral tablet (2 sources) Proton Pump Inhibitor Start: 09-10-2024 pantoprazole 40 mg o ral enteric coated tablet Dose : 40 mg = 1 tab(s), Oral, qDay, # 90 tab(s), 3 Refill(s), Pharmacy: [facility] #[id number], Esophageal reflux disease, 167.5, cm, 08/14/24 13:01:00 EDT, Height, kg, 08/14/24 13:01:00 EDT, Dosing Weight Start Date: 09/10/24 Status: Ordered rosuvastatin calcium 40 mg oral tablet (11 sources) HMG-CoA Reductase Inhibitor Start: 06-05-2019 End: 12-05-2024 rosuvastatin 40 mg oral tablet Dose : 40 mg = 1 tab(s), Oral, qDay, # 100 tab(s), 3 Refill(s), Pharmacy: [facility] #[id number], 75.1, cm, 11/01/23 10:58:00 EST, Height, kg, 11/01/23 10:58:00 EST, Dosing Weight Start Date: 11/01/23 Stop Date: 12/05/24 Status: Ordered CRESTOR 40 MG TA BS ROSUVASTATIN CALCIUM [id number] Marleni Zuñiga PA-C take 1 tablet by mouth once lauri y CRESTOR TABS One tablet by mouth daily ROSUVASTATIN CALCIUM TABS [id number] Tramaine Black Completed/Discontinued Medications Medication Drug Class(es) Dates Sig (Normalized) Sig (Original) acetaminophen / HYDROcodone (10 sources) Opioid Agonist Start: 09-11-2013 End: 01-27-2014 HYDROCODONE-ACETAMI NOPHEN 5-500 MG TABS as needed HYDROCODONE-ACETAMI NOPHEN [id number] Tramaine Black Start: 09-11-2013 HYDROCODONE-AC ETAMINOPHEN 5-500 MG TABS as needed HYDROCODONE-ACETAMINOPHEN [id number] Giles Peters MD take 1 tablet by varsha th every six hours as needed HYDROcodone-acetaminophen 5-325 mg per tablet Take 1 tablet by mouth every 6 hours as needed. Active 1 ml alirocumab 75 mg/ml auto-injector (1 source) PCSK9 Inhibitor Start: 08-04-2021 inject 1 mL by subcutaneous injection every other week Praluent Pen 75 mg/mL subcutaneous solution Dose : 75 mg = 1 mL, Subcutaneous, q2wk, # 2 mL, 11 Refill(s), Pharmacy: [facility] [address], 168, cm, 08/04/21 13:17:00 EDT, Height, kg, 08/04/21 13:17:00 EDT, Dosing Weight Start Date: 08/04/21 Status: Ordered atorvastatin 40 mg oral tablet (7 sources) HMG-CoA Reductase Inhibitor Start: 09-15-2014 End: 11-29-2017 take 1 tablet by mouth once daily Atorvastatin 40 MG tablet Discontinued 40 mg PO DAILY May 12, 2016 12:00am November 29, 2017 8:55am Start: 03-25-2013 End: 04-04-2013 take 1 tablet by mouth once daily ATORVASTATIN CALCIUM 80 MG TABS One tablet by mouth daily ATORVASTATIN CALCIUM [id number] Giles Peters MD carvedilol 25 mg oral tablet (4 sources) alpha-Adrenergic Antonio, beta-Adrenergic Antonio Start: 09-11-2013 End: 01-27-2014 take 0.5 tablet by mouth twice daily COREG 25 MG TABS 1/2 tablet by mouth twice daily CARVEDILOL [id number] Giles Peters MD Start: 05-12-2011 End: 09-11-2013 take 1 tablet by mouth twice daily CARVEDILOL 25 MG TABS One tablet by mouth twice daily CARVEDILOL [id number] Giles Peters MD ezetimibe 10 mg oral tablet (3 sources) Dietary Cholesterol Absorption Inhibitor Start: 05-12-2011 End: 02-13-2012 take 1 tablet by mouth once daily ZETIA 10 MG TABS One tablet by mouth daily EZETIMIBE [id number] Giles Peters MD hydroCHLOROthiazide 25 mg oral tablet (2 sources) Thiazide Diuretic Start: 03-10-2014 End: 03-31-2014 take 1 tablet by mouth once daily HYDROCHLOROTHIAZIDE 25 MG TABS One tablet by mouth daily HYDROCHLOROTHIAZIDE [id number] Paula Patterson RN meloxicam 7.5 mg oral tablet (2 sources) Nonsteroidal Anti-inflammator y Drug Start: 03-18-2013 End: 09-11-2013 take 1 tablet by mouth once daily MOBIC 7.5 MG TABS One tablet by mouth daily MELOXICAM [id number] Spring Macedo RN nitroglycerin 0.4 mg sublingual tablet (20 sources) Nitrate Vasodilator Start: 03-10-2014 End: 05-22-2024 Nitroglycerin 0.4 mg tablet, sublingual Discontinued 0.4 mg SL Q5M as needed for Chest Pain March 28, 2018 9:00am December 17, 2018 4:03pm Start: 05-12-2011 NITROGLYCERIN 0.4 MG/HR PT24 1 tablet under tongue every 5 min up to 3 X NITROGLYCERIN [id number] Giles Peters MD Start: 09-23-2008 nitroglycerin 0.4 mg sublingual spray 1 spray(s), SL, q5min, as needed only, # 15 g, 0 Refill(s), current med (Hx) Start Date: 09/23/08 Status: Ordered Praluent Pen 75 mg/mL subcutaneous solution (1 source) Start: 08-04-2021 inject 1 mL by subcutaneous injection every other week Praluent Pen 75 mg/mL subcutaneous solution Dose : 75 mg = 1 mL, Subcutaneous, q2wk, # 2 mL, 11 Refill(s), Pharmacy: [facility], 168, cm, 08/04/21 13:17:00 EDT, Height, kg, 08/04/21 13:17:00 EDT, Dosing Weight Start Date: 08/04/21 Status: Ordered pravastatin sodium 80 mg oral tablet (1 source) HMG-CoA Reductase Inhibitor take 1 tablet by mouth once daily PRAVASTATIN SODIUM 80 MG TABS One tablet by mouth daily PRAVASTATIN SODIUM [id number] Giles Peters MD simvastatin 80 mg oral tablet (1 source) HMG-CoA Reductase Inhibitor Start: 05-12-2011 take 1 tablet by mouth at bedtime SIMVASTATIN 80 MG TABS One tablet by mouth at bedtime. SIMVASTATIN [id number] Elmira Casas Problems Active Problems Problem Classification Problem Date Documented Da te Episodic/Chronic Abdominal hernia (18 sources) Incisional hernia; Translations: [Hernia of anterior abdominal wall] Onset: 3 06-03-2013 Episodic Acute myocardial infarction (1 source) ST elevation (STEMI) myocardial infarction involving other coronary artery of anterior wall; Translations: [ST elevation (STEMI) myocardial infarction involving other coronary artery of anterior wall] Onset: 1 05-12-2011 Chronic Chronic obstructive pulmonary disease and bronchiectasis (5 sources) Chronic obstructive lung disease 02-10-2021 Chronic Coronary atherosclerosis and other heart disease (11 sources) Coronary arteriosclerosis; Translations: [Atherosclerotic heart disease of [place] coronary artery without angina pectoris] Onset: 1 05-12-2011 Chronic Diabetes mellitus without complication (6 sources) Diabetes mellitus; Translations: [Type 2 diabetes mellitus without complication] 05-19-2020 Chronic Diseases of white blood cells (10 sources) Leukocytosis; Translations: [Elevated white blood cell count, unspecified] Onset: 4 06-18-2024 Chronic Disorders of lipid metabolism (13 sources) Hyperlipidemia; Translations: [Mixed hyperlipidemia] Onset: 1 05-12-2011 Chronic Esophageal disorders (2 sources) Gastroesophageal reflux disease 08-14-2024 Chronic Esophageal disorders (1 source) Achalasia of cardia; Translations: [Achalasia of cardia] Onset: Episodic Essential hypertension (13 sources) Hypertensive disorder; Translations: [Essential hypertension] Onset: 1 05-12-2011 Chronic Miscellaneous mental health disorders (2 sources) Primary insomnia 05-01-2024 Chronic Nonspecific chest pain (5 sources) Chest pain, unspecified; Translations: [Chest pain] Onset: 1 05-12-2011 Episodic Other aftercare (4 sources) H/O: high risk medication; Translations: [Other correction (current) drug therapy] 11-29-2017 Episodic Other gastrointestinal disorders (5 sources) Oropharyngeal dysphagia 02-03-2021 Episodic Other gastrointestinal disorders (2 sources) Dysphagia; Translations: [Dysphagia, unspecified] 11-12-2024 Episodic Other lower respiratory disease (5 sources) Dyspnea; Translations: [Dyspnea, unspecified] Onset: 1 05-12-2011 Episodic Other lower respiratory disease (2 sources) Cough 02-03-2021 Episodic Other lower respiratory disease (2 sources) Other nonspecific abnormal finding of lung field; Translations: [Other nonspecific abnormal finding of lung field] Onset: 5 Episodic Other non-traumatic joint disorders (4 sources) Hip pain 11-02-2022 Episodic Other screening for suspected conditions (not mental disorders or infectious disease) (1 source) Encounter for screening for malignant neoplasm of prostate; Translations: [Screening for malignant neoplasm done] Episodic Residual codes; unclassified (5 sources) Chronic pain 05-19-2020 Episodic Screening or history of mental health and substance abuse (1 source) Tobacco dependence syndrome; Translations: [Nicotine dependence, unspecified, uncomplicated] Onset: 1 05-12-2011 Chronic Spondylosis; intervertebral disc disorders; other back problems (10 sources) Cervical disc disorder; Translations: [Degeneration of lumbar intervertebral disc] 02-18-2020 Chronic Spondylosis; intervertebral disc disorders; other back problems (4 sources) Spasm of back muscles 11-02-2022 Episodic Substance-related disorders (12 sources) Nicotine dependence; Translations: [Nicotine dependence, unspecified, uncomplicated] 02-05-2020 Chronic Syncope (5 sources) Syncope and collapse; Translations: [Syncope and collapse] Onset: 1 05-12-2011 Episodic Unclassified (5 sources) Patient encounter status 11-11-2019 Past or Other Problems Problem Classification Problem Date Documented Da te Episodic/Chronic Abdominal pain (1 source) Right upper quadrant pain; Translations: [Right upper quadrant pain] Onset: 02-13-2012 02-13-2012 Episodic Biliary tract disease (1 source) Chronic cholecystitis; Translations: [Chronic cholecystitis] Onset: 03-28-2012 03-28-2012 Episodic Coronary atherosclerosis and other heart disease (7 sources) Coronary angioplasty status; Translations: [Stented coronary artery] Onset: 11-27-2007 05-12-2011 Episodic Comment on above: PTCA/OSCAR of the mid CFX 09/05; PTCA/OSCAR to prox LAD & CFX and PTCA to OM2 01/01; overlapping BMS to mid CFX 09/03 Malaise and fatigue (1 source) Fatigue; Translations: [Other fatigue] Onset: 05-12-2011 05-12-2011 Episodic Other aftercare (1 source) Other correction (current) drug therapy; Translations: [Other terminal superintendent (current) drug therapy] Onset: 05-12-2011 05-12-2011 Episodic Other circulatory disease (1 source) History of myocardial infarction; Translations: [Old myocardial infarction] Onset: 05-12-2011 05-12-2011 Episodic Other gastrointestinal disorders (2 sources) Dysphagia, unspecified; Translations: [Dysphagia, unspecified] Onset: 10-21-2024 Episodic Other nutritional; endocrine; and metabolic disorders (3 sources) Body mass index (BMI) 27.0-27.9, adult; Translations: [Body mass index (BMI) 26.0-26.9, adult] Onset: 09-11-2013 Resolved: 10-05-2015 03-17-2015 Episodic Residual codes; unclassified (1 source) History of hernia repair; Translations: [Other specified postprocedural states] Onset: 11-27-2022 09-13-2023 Episodic Unclassified (1 source) FH: Hypertension; Translations: [Family history of ischemic heart disease and other diseases of the circulatory system] 09-15-2014 Episodic Results Test Name Value Interpretation Reference Range Facility [facility] 04-28-2025 [facility] Telephone (AGGENS4) LUKE DOLAN ([id number]) 1955 M Date Time Provider Department 04/28/25 YESENIA BOUDREAUX AGGENS4 During your visit today, we recorded the following information about you: Phoenix Blood RN 04/28/2025 4:36 PM Signed Opened in error Allergies As of Date: 04/28/2025 (No Known Allergies) Date Reviewed: 09/03/2019 Reviewed by: Loco Chatman), RN - Fully Assessed Prescriptions as of 04/28/2025 - cephALEXin (KEFLEX) 500 mg capsule Take 1 capsule by mouth four times daily. - clopidogrel (PLAVIX) 75 mg tablet Take 75 mg by mouth once daily. - aspirin, buffered (ASCRIPTIN) 325 mg buffered tablet Take 1 tablet by mouth once daily. - lisinopril-hydrochlorothiazi de 10-12.5 mg per tablet Take 1 tablet by mouth once daily. - metFORMIN 500 mg tablet Take 500 mg by mouth twice daily with meals. - Fenofibrate Nanocrystallized 160 mg tab Take 160 mg by mouth once daily. - HYDROcodone-acetaminophen 5-325 mg per tablet Take 1 tablet by mouth every 6 hours as needed. - nitroglycerin sublingual 0.4 mg SL tablet Dissolve 0.4 mg under the tongue every 5 minutes as needed. Meds Comments as of 05/05/2014: 05/05/14 unable to remember name of cholester Problem List As Of Date 04/28/2025 Noted Resolved Leukocytosis [D72.829] 05/05/2014 Encounter Status:Closed by [facility] on 04/28/25 [facility] 04-23-2025 [facility] Telephone (AGGENS4) LUKE DOLAN ([id number]) 1955 M Date Time Provider Department 04/23/25 YESENIA BOUDREAUXENS4 During your visit today, we recorded the following information about you: Phoenix Blood RN 04/23/2025 2:31 PM Signed I called and left a message on 04/11/25 and again today in an attempt to reschedule esophageal manometry. I left my contact information. Phoenix Blood RN Allergies As of Date: 04/23/2025 (No Known Allergies) Date Reviewed: 09/03/2019 Reviewed by: Loco Chatman (Rn), RN - Fully Assessed Reason for Visit: Future Appointment [256] Cmt: Attempt to reschedule esophageal manometry Prescriptions as of 04/23/2025 - cephALEXin (KEFLEX) 500 mg capsule Take 1 capsule by mouth four times daily. - clopidogrel (PLAVIX) 75 mg tablet Take 75 mg by mouth once daily. - aspirin, buffered (ASCRIPTIN) 325 mg buffered tablet Take 1 tablet by mouth once daily. - lisinopril-hydrochlorothiazi de 10-12.5 mg per tablet Take 1 tablet by mouth once daily. - metFORMIN 500 mg tablet Take 500 mg by mouth twice daily with meals. - Fenofibrate Nanocrystallized 160 mg tab Take 160 mg by mouth once daily. - HYDROcodone-acetaminophen 5-325 mg per tablet Take 1 tablet by mouth every 6 hours as needed. - nitroglycerin sublingual 0.4 mg SL tablet Dissolve 0.4 mg under the tongue every 5 minutes as needed. Meds Comments as of 05/05/2014: 05/05/14 unable to remember name of cholester Problem List As Of Date 04/23/2025 Noted Resolved Leukocytosis [D72.829] 05/05/2014 Encounter Status:Closed by [facility] on 04/23/25 [facility] 03-17-2025 [facility] Telephone (AGGENS4) LUKE DOLAN ([id number]) 1955 M Date Time Provider Department 03/17/25 YESENIA BOUDREAUX AGGENS4 During your visit today, we recorded the following information about you: Phoenix Blood RN 03/17/2025 10:26 AM Signed I called patient to reschedule his esophageal manometry but patient asked if I would call him back in a week. He said he is scheduled for another test at [place] and would like to get that completed first. I agreed to call him back. Phoenix Blood RN Allergies As of Date: 03/17/2025 (No Known Allergies) Date Reviewed: 09/03/2019 Reviewed by: Loco Chatman (Rn), RN - Fully Assessed Reason for Visit: Future Appointment [256] Cmt: Reschedule manometry Prescriptions as of 03/17/2025 - cephALEXin (KEFLEX) 500 mg capsule Take 1 capsule by mouth four times daily. - clopidogrel (PLAVIX) 75 mg tablet Take 75 mg by mouth once daily. - aspirin, buffered (ASCRIPTIN) 325 mg buffered tablet Take 1 tablet by mouth once daily. - lisinopril-hydrochlorothiazi de 10-12.5 mg per tablet Take 1 tablet by mouth once daily. - metFORMIN 500 mg tablet Take 500 mg by mouth twice daily with meals. - Fenofibrate Nanocrystallized 160 mg tab Take 160 mg by mouth once daily. - HYDROcodone-acetaminophen 5-325 mg per tablet Take 1 tablet by mouth every 6 hours as needed. - nitroglycerin sublingual 0.4 mg SL tablet Dissolve 0.4 mg under the tongue every 5 minutes as needed. Meds Comments as of 05/05/2014: 05/05/14 unable to remember name of cholester Problem List As Of Date 03/17/2025 Noted Resolved Leukocytosis [D72.829] 05/05/2014 Encounter Status:Closed by [facility] [facility] on 03/17/25 [facility] PET/CT Tumor Base -Thigh Ini ton 03-11-2025 PET/CT Tumor Base -Thigh Init [facility] Imaging Services [address] [place] [address] PET/CT Tumor Base -Thigh Init MR#: [id number] Acct: [id number] Name: LUKE DOLAN Tommy Rep #: [id number] : 1955 M 69 From: [place] PCP: Dr. Camden Back DO Status: REG CLI Study: PET/CT Tumor Base -Thigh Init Date of Exam: Exam# [id number] Ordering Dr: Camden Back DO PROCEDURE: PET/CT TUMOR BASE -THIGH INIT 03/11/2025 REASON FOR EXAM: 69 y/o M with RIGHT LOWER LUNG MASS TECHNIQUE: Following the intravenous administration of radionucleotide, image acquisition on a dedicated PET/CT unit was performed at one hour post injection. A preliminary CT study encompassing the Skull base, neck, chest, abdomen, pelvis, and proximal thighs was performed for purposes of attenuation correction and anatomic localization. The proximal thighs were also included. The patient's blood glucose level was 78 mg/dL (allowable range: 50-180 mg/dL). RADIOPHARMACEUTICAL: 14.129 mCi 18F-FDG (Fluorodeoxyglucose F18) IV was injected into he patient. RADIATION DOSE SUMMARY: Effective Dose: Approximately 7 mSv for a standard whole-body PET scan Organ Doses: Varies by organ, with higher doses typically to the bladder, liver, and brain COMPARISON: COMPARISON FROM CT, PET OR OTHER PERTINENT EXAMS: No priors available. FINDINGS: Physiologic uptake: There may be expected metabolic uptake within the brain, tongue and floor of the mouth and larynx/vocal cords, heart, gavin (many normal individuals have hilar uptake in less than 3 nodes with mildly avid hilar nodes less than 2.7 SUV), liver and spleen, system, and GI tract and symmetric muscle uptake. FDG AVID AND NON-AVID LESIONS. Reported avid SUV values (g/mL*) are maximum SUV. NECK: There are no significant neck abnormalities. CHEST: Chest wall- There are no significant chest wall abnormalities. Axilla- There are no significant axillary abnormalities. Lung parenchyma-in the area of clinical concern, in the nodule of the posterior right lower lobe, increased SUV max is seen, of 2.9. This is concerning for a primary malignancy. Mediastinum- There are no significant hilar or mediastinal adenopathy. Pleura- There are no significant pleural abnormalities. Moderate coronary artery calcification is noted. 1 2 to listen to free or ABDOMEN: Stomach- No significant abnormalities. Liver- No significant abnormalities. Prior cholecystectomy. Spleen- No significant abnormalities. Pancrease- No significant abnormalities. Kidneys- No significant abnormalities. Bowel- Normal bowel activity. Spine- No significant abnormalities. Prominent arterial calcification is seen; no evidence of abdominal aortic aneurysm. Uptake was E was a Elvin raúl and once her name shows prior just leaving a message consistent answer PELVIS: Bowel- Normal physiologic bowel activity is identified. Masses- There are no pelvic masses. LOWER EXTREMITIES: Bones- With the use of bone window settings, there are no osteolytic or osteoblastic lesions. There are no FDG avid lesions within the visualized portion of the axial skeleton. PET/PET/CT Tumor Base -Thigh Init IMPRESSION: FDG avid-increased uptake with SUV max of 2.9 in the area of clinical concern of the nodule of the posterior right lower lobe, concerning for the presence of malignancy. No additional focus of abnormal uptake is noted. Please note the low-dose CT scan was performed to facilitate PET image reconstruction and anatomic localization and does not replace a diagnostic CT. Any diagnostic CT requested and performed at the time of the PET will be reported separately. Reading Location: [address] CC: Dr. Camden Back DO Cart Attendant: Signed Normal [facility] Positron emission tomography scan reportOrdered By: [place] Hagen on 03-11-2025 PT Unspecified body region [facility] Services [address] [place], [place] [id number] PET/CT Tumor Base -Thigh Init MR#: [id number] Acct: [id number] Name: LUKE DOLAN Rep #: [id number] : 1955 M 69 From: Sergio Hagen MD PCP: Dr. Camden Back DO Status: REG CLI Study:PET/CT Tumor Base -Thigh Init Date of E xam: 03/11/25 Exam# [id number] Ordering Dr: Camden Back DO PROCEDURE: PET/CT TUMOR BASE -THIGH INIT 03/11/2025 REASON FOR EXAM: 69 y/o M with RIGHT LOWER LUNG MASS TECHNIQUE: Following the intravenous administration of radionucleotide, image acquisition on a dedicated PET/CT unit was performed at one hour post injection. A preliminary CT study encompassing the Skull base, neck, chest, abdomen, pelvis, and proximal thighs was performed for purposes of attenuation correction and anatomic localization. The proximal thighs were also included. The patient's blood glucose level was 78 mg/dL (allowable range: 50-180 mg/dL). RADIOPHARMACEUTICAL: 14.129 mCi 18F-FDG (Fluorodeoxyglucose F18) IV was injectedinto he patient. RADIATION DOSE SUMMARY: Effective Dose: Approximately 7 mSv for a standard whole-body PET scan Organ Doses: Varies by organ, with higher doses typically to the bladder, liver,and brain COMPARISON: COMPARISON FROM CT, PET OR OTHER PERTINENT EXAMS: No priors available. FINDINGS: Physiologic uptake: There may be expected metabolic uptake within the brain, tongue and floor of the mouth and larynx/vocal cords, heart, gavin (many normal individuals have hilar uptake in less than 3 nodes with mildly avid hilar nodes less than 2.7 SUV), liver and spleen, system, and GI tract and symmetric muscle uptake. FDG AVID AND NON-AVID LESIONS. Reported avid SUV values (g/mL*) are maximum SUV. NECK: There are no significant neck abnormalities. CHEST: Chest wall- There are no significant chest wall abnormalities. Axilla- There are no significant axillary abnormalities. Lung parenchyma-in the area of clinical concern, in the nodule of the posterior right lower lobe, increased SUV max is seen, of 2.9. This is concerning for a primary malignancy. Mediastinum- There are no significant hilar or mediastinal adenopathy. Pleura- There are no significant pleural abnormalities. Moderate coronary artery calcification is noted. 1 2 to listen to free or ABDOMEN: Stomach- No significant abnormalities. Liver- No significant abnormalities. Prior cholecystectomy. Spleen- No significant abnormalities. Pancrease- No significant abnormalities. Kidneys- No significant abnormalities. Bowel- Normal bowel activity. Spine- No significant abnormalities. Prominent arterial calcification is seen; no evidence of abdominal aortic aneurysm. Uptake was E was a Elvin raúl and once her name shows prior just leaving a message consistent answer PELVIS: Bowel- Normal physiologic bowel activity is identified. Masses- There are no pelvic masses. LOWER EXTREMITIES: Bones- With the use of bone window settings, there are no osteolytic or osteoblastic lesions. There are no FDG avid lesions within the visualized portion of the axial skeleton. PET/PET/CT Tumor Base -Thigh Init IMPRESSION: FDG avid-increased uptake with SUV max of 2.9 in the area of clinical concern ofthe nodule of the posterior right lower lobe, concerning for the presence of malignancy. No additional focus of abnormal uptake is noted. Please note the low-dose CT scan was performed to facilitate PET image reconstruction and anatomic localization and does not replace a diagnostic CT. Any diagnostic CT requested and performed at the time of the PET will be reported separately. Reading Location: [id number] CC: Dr. Camden Back, DO ~ Cart Attendant: Signed [facility] CT THORAX SCREENING W/O CONT Rosalina 02-28-2025 CT THORAX SCREENING W/O CONTRAST ORIGINAL EXAMINATION: LOW DOSE SCREENING CT OF THE CHEST WITHOUT CONTRAST02/27/2025 4:12 pm TECHNIQUE: Low dose lung cancer screening CT of the chest was performed without the administration of intravenous contrast. Multiplanar reformatted images are provided for review. Automated exposure control, iterative reconstruction, and/or weight based adjustment of the mA/kV was utilized to reduce the radiation dose to as low as reasonably achievable. COMPARISON: CT chest 02/27/2024. HISTORY: ORDERING SYSTEM PROVIDED HISTORY: Reason for Exam: Lung Cancer Screening 25 pack year hx. Current smoker. Dry cough. FINDINGS: The heart is normal in size. Moderate aortic and severe multivessel coronary artery calcifications. The great vessels appear normal in caliber. There is a partially calcified right paratracheal and a couple partially calcified nonenlarged right hilar lymph nodes. No pathologically enlarged mediastinal, hilar or axillary lymph nodes. The esophagus is patulous and fluid-filled with mild wall thickening. Gallbladder is surgically absent. No suspicious findings seen in the visualized portion of the abdomen. The abdomen is not evaluated in detail. Trachea and mainstem bronchi are patent. An azygous fissure is noted. There is moderate emphysema. Mild scattered bilateral pleural and parenchymal scarring. No focal consolidation, pleural effusion or pneumothorax. A subpleural right middle lobe pulmonary nodule has increased in size measuring approximately 8 mm, previously 5 mm. Stable 4 mm right lower lobe pulmonary nodule (series 4, image 67). There is a new right lower lobe irregular nodule measuring 1.5 cm that demonstrates central cavitation (series 4, image 66). Stable 2 mm nodule within the azygous lobe (series 4, image 15). There are calcified granulomas within the right middle lobe. No aggressive osseous lesions visible. Degenerative changes seen in the spine. IMPRESSION: New irregular 1.5 cm right lower lobe cavitary pulmonary nodule is concerning for malignancy. Additional increasing size of right middle lobe nodule measuring up to 0.8 cm. Recommend evaluation with PET-CT and/or tissue sampling. Patulous and fluid-filled esophagus with mild wall thickening suggests reflux/esophagitis and likely underlying dysmotility. Severe multivessel coronary artery calcifications. Moderate emphysema. The findings were sent to the Radiology Results Communication Center at 8:25 am on 02/28/2025 to be communicated to a licensed caregiver. Information below is for Lung nodule tracking purposes: Nodule: S8 BLN Other Findings: P-CAC Change: Change Recall : Immediately Recall Type: PET Bx LungRads: 4Xs Interpreted by: Luke Craig Preliminary Report By: Luke Craig Electronically signed By Luke Craig Dictated Date: 02/28/2025 8:16:43 AM Prelim Date: 02/28/2025 8:27:08 AM Sign Date: 02/28/2025 8:27:08 AM Ordering Provider: CAMDEN BACK [facility] 12-11-2024 [facility] Telephone (AGGENS4) LUKE DOLAN ([id number]) 1955 M Date Time Provider Department 12/11/24 YESENIA BOUDREAUX AGGENS4 During your visit today, we recorded the following information about you: Allergies As of Date: 12/11/2024 (No Known Allergies) Date Reviewed: 09/03/2019 Reviewed by: Loco Chatman (Rn), RN - Fully Assessed Primary Visit Diagnosis:Dysphagia, unspecified type [R13.10] Order(s):SURGICAL REQUEST - ELECTIVE (06/2020) [[id number]] Order #: [id number]: 1 Prescriptions as of 12/11/2024 - cephALEXin (KEFLEX) 500 mg capsule Take 1 capsule by mouth four times daily. - clopidogrel (PLAVIX) 75 mg tablet Take 75 mg by mouth once daily. - aspirin, buffered (ASCRIPTIN) 325 mg buffered tablet Take 1 tablet by mouth once daily. - lisinopril-hydrochlorothiazi de 10-12.5 mg per tablet Take 1 tablet by mouth once daily. - metFORMIN 500 mg tablet Take 500 mg by mouth twice daily with meals. - Fenofibrate Nanocrystallized 160 mg tab Take 160 mg by mouth once daily. - HYDROcodone-acetaminophen 5-325 mg per tablet Take 1 tablet by mouth every 6 hours as needed. - nitroglycerin sublingual 0.4 mg SL tablet Dissolve 0.4 mg under the tongue every 5 minutes as needed. Meds Comments as of 05/05/2014: 05/05/14 unable to remember name of cholester Problem List As Of Date 12/11/2024 Noted Resolved Leukocytosis [D72.829] 05/05/2014 Encounter Status:Closed by TESS GONZALES on 12/11/24 [facility] CNPN Telephone (AGGENS4) LUKE DOLAN ([id number]) 1955 M Date Time Provider Department 12/11/24 YESENIA BOUDREAUX AGGENS4 During your visit today, we recorded the following information about you: Tess Gonzales LPN 12/11/2024 11:38 AM Signed Patient called and cancelled manometry for 12/12/24, does not want to reschedule until late January early February. OSMAR Solo Sarah, LPN 12/11/2024 2:58 PM Signed Rescheduled for 02/28/2025 10am. Tess Gonzales LPN Allergies As of Date: 12/11/2024 (No Known Allergies) Date Reviewed: 09/03/2019 Reviewed by: Loco Chatman (Sharon), RN - Fully Assessed Prescriptions as of 12/11/2024 - cephALEXin (KEFLEX) 500 mg capsule Take 1 capsule by mouth four times daily. - clopidogrel (PLAVIX) 75 mg tablet Take 75 mg by mouth once daily. - aspirin, buffered (ASCRIPTIN) 325 mg buffered tablet Take 1 tablet by mouth once daily. - lisinopril-hydrochlorothiazi de 10-12.5 mg per tablet Take 1 tablet by mouth once daily. - metFORMIN 500 mg tablet Take 500 mg by mouth twice daily with meals. - Fenofibrate Nanocrystallized 160 mg tab Take 160 mg by mouth once daily. - HYDROcodone-acetaminophen 5-325 mg per tablet Take 1 tablet by mouth every 6 hours as needed. - nitroglycerin sublingual 0.4 mg SL tablet Dissolve 0.4 mg under the tongue every 5 minutes as needed. Meds Comments as of 05/05/2014: 05/05/14 unable to remember name of cholester Problem List As Of Date 12/11/2024 Noted Resolved Leukocytosis [D72.829] 05/05/2014 Encounter Status:Closed by TESS GONZALES on 12/11/24 [facility] Esophagus Single Contraston 12-11-2024 Esophagus Single Contrast [facility] Imaging Services [address] [place] [address] Esophagus Single Contrast MR#: [id number] Acct: [id number] Name: LUKE DOLAN Rep #: [id number] : 1955 69 From: Evans luther MD PCP: Dr. Camden Back, DO Status: REG CLI Study: Esophagus Single Contrast Date of Exam: Exam# [id number] Ordering Dr: Loco Wilde MD :[id number] STUDY: X-RAY - ESOPHAGUS (BARIUM SWALLOW) WITH FLUOROSCOPY REASON FOR EXAM: Male, 69 years old. ACHALASIA TECHNIQUE: 68 fluoroscopic view(s) of the esophagus were obtained following swallowing of barium. FLUOROSCOPY TIME (if supplied): (46 seconds) minutes/seconds. 2.6 mGy. COMPARISON: None. FINDINGS: There is no demonstrated esophageal foreign body. There is no demonstrated stricture or mucosal abnormality. There is dilatation of the esophagus with the decreased peristaltic activity. There is narrowing at the gastroesophageal junction. Findings suggestive of a achalasia. The patient ingested a 12 mm tablet of barium. The tablet is trapped at the gastroesophageal junction. There is atherosclerotic calcification of the aortic arch with tortuosity of the descending aorta. Normal visualized pulmonary parenchyma. Normal visualized osseous structures of the thorax. RAD/Esophagus Single Contrast IMPRESSION: Findings suggestive of achalasia. The ingested 12 mm tablet of barium is trapped at the gastroesophageal junction. Electronically Signed: Evans Carvajal MD at 9:36 EST , CC: Dr. Camden Back DO; Dr. Loco Wilde MD Cart Attendant: Signed Normal [facility] 12-02-2024 [facility] Telephone (AG[facility]ENS4) LUKE DOLAN ([id number]) 1955 M Date Time Provider Department 12/02/24 YESENIA BOUDREAUX AGGENS4 During your visit today, we recorded the following information about you: Phoenix Blood RN 12/02/2024 4:35 PM Signed I called patient and informed him that per Dr. Back, he is to start holding his Plavix on 12/06/24 and restart it on 12/13/24. Patient agreed with the plan. Phoenix Blood RN Allergies As of Date: 12/02/2024 (No Known Allergies) Date Reviewed: 09/03/2019 Reviewed by: Loco Chatman (Rn), RN - Fully Assessed Reason for Visit: Future Appointment [256] Cmt: Plavix instructions Prescriptions as of 12/02/2024 - cephALEXin (KEFLEX) 500 mg capsule Take 1 capsule by mouth four times daily. - clopidogrel (PLAVIX) 75 mg tablet Take 75 mg by mouth once daily. - aspirin, buffered (ASCRIPTIN) 325 mg buffered tablet Take 1 tablet by mouth once daily. - lisinopril-hydrochlorothiazi de 10-12.5 mg per tablet Take 1 tablet by mouth once daily. - metFORMIN 500 mg tablet Take 500 mg by mouth twice daily with meals. - Fenofibrate Nanocrystallized 160 mg tab Take 160 mg by mouth once daily. - HYDROcodone-acetaminophen 5-325 mg per tablet Take 1 tablet by mouth every 6 hours as needed. - nitroglycerin sublingual 0.4 mg SL tablet Dissolve 0.4 mg under the tongue every 5 minutes as needed. Meds Comments as of 05/05/2014: 05/05/14 unable to remember name of cholester Problem List As Of Date 12/02/2024 Noted Resolved Leukocytosis [D72.829] 05/05/2014 Encounter Status:Closed by [facility] on 12/02/24 [facility] LUKE DOLAN ([id number]) 1955 M Date Time Provider Department 11/29/24 YESENIA BOUDREAUX AGGENS4 During your visit today, we recorded the following information about you: Pat Martin LPN 11/29/2024 9:09 AM Signed Clearance/medication recommendation scanned into chart for review Allergies As of Date: 11/29/2024 (No Known Allergies) Date Reviewed: 09/03/2019 Reviewed by: Loco Chatman (Sharon), RN - Fully Assessed Reason for Visit: clearance/medication recommendation [Other] Prescriptions as of 11/29/2024 - cephALEXin (KEFLEX) 500 mg capsule Take 1 capsule by mouth four times daily. - clopidogrel (PLAVIX) 75 mg tablet Take 75 mg by mouth once daily. - aspirin, buffered (ASCRIPTIN) 325 mg buffered tablet Take 1 tablet by mouth once daily. - lisinopril-hydrochlorothiazi de 10-12.5 mg per tablet Take 1 tablet by mouth once daily. - metFORMIN 500 mg tablet Take 500 mg by mouth twice daily with meals. - Fenofibrate Nanocrystallized 160 mg tab Take 160 mg by mouth once daily. - HYDROcodone-acetaminophen 5-325 mg per tablet Take 1 tablet by mouth every 6 hours as needed. - nitroglycerin sublingual 0.4 mg SL tablet Dissolve 0.4 mg under the tongue every 5 minutes as needed. Meds Comments as of 05/05/2014: 05/05/14 unable to remember name of cholester Problem List As Of Date 11/29/2024 Noted Resolved Leukocytosis [D72.829] 05/05/2014 Encounter Status:Closed by PAT MARTIN on 11/29/24 [facility] CNCOon 11-12-2024 CNCO Letter Text [facility] CNPNon 11-12-2024 [facility] Telephone (AGGENS4) LUKE DOLAN ([id number]) 1955 M Date Time Provider Department 11/12/24 YESENIA BOUDREAUX AGGENS4 During your visit today, we recorded the following information about you: Phoenix Blood RN 11/12/2024 11:16 AM Signed I called the patient and verbally discussed and reviewed the information about esophageal manometry. All of patient's questions were answered. Patient agreed to be scheduled on 12/12/24 at 10:00 AM I sent the patient written information via [facility] about esophageal manometry and the prep instructions, including holding Plavix for 5 days before the test, and directions for the appointment. Patient was informed that he will need to follow up with Dr. Wilde for test results. Phoenix Blood RN Allergies As of Date: 11/12/2024 (No Known Allergies) Date Reviewed: 09/03/2019 Reviewed by: Loco Chatman (Rn), RN - Fully Assessed Reason for Visit: Future Appointment [256] Cmt: Esophageal manometry Primary Visit Diagnosis:Dysphagia, unspecified type [R13.10] Order(s):SURGICAL REQUEST - ELECTIVE (06/2020) [[id number]] Order #: [id number]: 1 Prescriptions as of 11/12/2024 - cephALEXin (KEFLEX) 500 mg capsule Take 1 capsule by mouth four times daily. - clopidogrel (PLAVIX) 75 mg tablet Take 75 mg by mouth once daily. - aspirin, buffered (ASCRIPTIN) 325 mg buffered tablet Take 1 tablet by mouth once daily. - lisinopril-hydrochlorothiazi de 10-12.5 mg per tablet Take 1 tablet by mouth once daily. - metFORMIN 500 mg tablet Take 500 mg by mouth twice daily with meals. - Fenofibrate Nanocrystallized 160 mg tab Take 160 mg by mouth once daily. - HYDROcodone-acetaminophen 5-325 mg per tablet Take 1 tablet by mouth every 6 hours as needed. - nitroglycerin sublingual 0.4 mg SL tablet Dissolve 0.4 mg under the tongue every 5 minutes as needed. Meds Comments as of 05/05/2014: 05/05/14 unable to remember name of cholester Problem List As Of Date 11/12/2024 Noted Resolved Leukocytosis [D72.829] 05/05/2014 Encounter Status:Closed by [facility] on 11/12/24 [facility] XR ESOPHOGRAM W/BARIUM TABLE Ton 10-31-2024 XR ESOPHOGRAM W/BARIUM TABLET ORIGINAL HISTORY: Reflux and dysphagia COMPARISON: No FLUOROSCOPY TIME: 4 minutes 53 seconds. FLUOROSCOPY IMAGES: 70 FINDINGS: The esophagus is mildly dilated. Peristalsis is poor, and there are tertiary contractions. No mucosal abnormalities are seen. There is narrowing at the gastroesophageal junction, which is not seen to distend properly throughout the examination; a barium tablet does not pass into the stomach. Reflux is not tested due to retained material in the esophagus. IMPRESSION: Diminished peristalsis and dilated esophagus, consistent with some degree of achalasia. Interpreted by: Roni Treadwell MD Preliminary Report By: Roni Treadwell MD Electronically signed By Roni Treadwell MD Dictated Date: 10/31/2024 11:44:40 AM Prelim Date: 10/31/2024 11:49:46 AM Sign Date: 10/31/2024 11:49:46 AM Ordering Provider: CAMDEN Chandra [facility] Final Surgical Pathology Rep toni 10-23-2024 Final Surgical Pathology Report . 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 Smallest fragments may not survive processing. TS-1 Sierra Segovia, Grossing Slab Grinder/ Dr. Luke Sellers, Pathologist Performed by Sierra Segovia MICROSCOPIC DESCRIPTION: The microscopic examination is performed, except in the case of Gross Only. Electronically Signed by Pathology Report verified by [facility] THAIS BRAR MD Sign out Date: 10/23/2024 08:35 Performing Lab: [facility], [address] [place] [address] Pathology Dept Disclaimer If ancillary studies were utilized, the following Laboratory Developed Test (LDT) disclaimer will apply: Under CLIA requirements, [facility] is qualified to perform high complexity testing. For all ancillary stains, positive and negative controls stain appropriately. Performance characteristics of immunohistochemical and chromogenic in-situ hybridization tests have been determined by [facility] Pathology [facility]. These tests are used for clinical purposes, They should not be regarded as investigational or for research. Normal [facility] Cardiology Visit Reporton Cardiology Visit Report [facility] [address] [place], [place] [address] OFFICE VISIT Date of Service: 05/22/24 MR#: [id number] Acct: [id number] Name: LUKE DOLAN Rep #: [id number] : 1955 Provider: Dr. Cecil green MD Age/Sex: 68/M Location: [facility] Status: Signed HPI HPI History of Present Illness Details: This is a 68-year-old white male who presents today for an outpatient cardiovascular follow-up. He has a history of premature CAD, status post anterior MT (2004), status post previous multivessel PCI involving the LAD and LCx systems, hyperlipidemia, and nicotine abuse. 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 He denies any recurrence of his anginal symptoms which was a profound fatigability that progressed to bilateral jaw discomfort. The patient's her lipids are managed by his primary care physician he is tolerating Crestor 40 mg daily he was intolerant of atorvastatin. The patient does continue to smoke we did discuss smoking cessation he had a CT scan that was negative for any lung nodules. Patient denies any PND orthopnea denies any lower extremity edema he is very active and appears to be spending a lot of time outside given his suntan. Intake Vital Signs 08/28/23 11:46 05/22/24 10:28 Height 5 ft 7 in 5 ft 7 in Weight: 167 lb BMI 26.2 BP 124/76 H Blood Pressure Location Lt brachial Position Sitting Respiration 18 Pulse 77 Pulse Source Monitor Pulse Oximetry (%) 94 Oxygen Delivery Method room air Intake Visit Reasons: 1 Y FU/PREV PFM [employer] Clerk Required: No Accompanied by: Self Is patient in pain?: No Allergies atorvastatin calcium (From Lipitor) Adverse Reaction (Verified 05/22/24 10:30) Pain in joints Medications ???Medication ???Instructions ???Recorded ???Confirmed ???Type metformin 500 mg tablet 500 mg PO DAILY 02/04/14 05/22/24 History fenofibrate 160 mg tablet 160 mg PO DAILY #30 tabs 12/17/18 05/22/24 Rx rosuvastatin 40 mg tablet (Crestor) 40 mg PO DAILY 06/05/19 05/22/24 History lisinopril 40 mg tablet 40 mg PO DAILY #90 tabs 12/13/21 05/22/24 Rx aspirin 81 mg tablet,delayed 81 mg PO DAILY 08/17/23 05/22/24 History release (Adult Aspirin Regimen) baclofen 10 mg tablet 10 mg PO TID PRN MUSCLE SPA 08/17/23 05/22/24 History clopidogrel 75 mg tablet 75 mg PO DAILY #90 tabs 05/22/24 05/22/24 Rx nitroglycerin 0.4 mg sublingual 0.4 mg sublingual Q5M PRN Chest 05/22/24 05/22/24 Rx tablet Pain #25 tabs Ejection fraction %: 60 Have you fallen in the past year?: No PFSH Medical History Diabetes High cholesterol Back pain Gastric reflux Smoker Cardiology follow-up encounter Presence of stent in coronary artery ( 08/2008) Essential hypertension Ventral incisional hernia without obstruction or gangrene Hyperlipidemia Acute MT, anterior wall, subsequent episode of care Old myocardial infarction Syncope and collapse Dyspnea Chest pain Long-term use of high-risk medication Atherosclerotic heart disease of [place] coronary artery without angina pectoris Surgical History History of ventral hernia repair ( 08/2023) History of coronary artery stent placement History of cardiac catheterization History of cataract surgery Presence of coronary angioplasty implant and graft ( 08/2008) History of umbilical hernia repair History of cholecystectomy ( 02/2012) History of hernia repair History of tonsillectomy Family History Father CAD (coronary artery disease) Diabetes Thyroid disorder Hypertension Cancer lung Mother Hypertension Aneurysm Brother CAD (coronary artery disease) Sister Congestive heart failure Social History Smoking Status: Current every day smoker tobacco type: cigarettes alcohol intake: current alcohol intake frequency: holidays/special occasions only substance use type: does not use caffeine: Yes ROS Const Const: Positive for fatigue; Negative for weakness ENT ENT: Positive for dizziness (attributes to pinched nerves in neck); Negative for balance problems Cardio Chest Pain: No Palpitations: No Edema: None Muscle aches with walking: None Resp Respiratory: Negative for SOB with activity, SOB at rest or SOB orthopnea SOB lying down GI GI: Negative nausea, vomiting or heartburn Musc Musc: Negative for muscle weakness or balance problems Neuro Neuro: Positive for dizziness (attrib (more content not included)... Normal [facility] .Auto Diffon 05-14-2024 Basophil, Absolute 0.1 10 3/mcL Normal 0.0-0.2 [facility] ([place]) Comment on above: Performed By: #### G FR, ANEU, LIPID, CBC, CMP, ADIFF, PSA #### [address] [address] Basophils/100 WBC (Bld) 0.4 % Normal 0.0-2.5 [facility], [facility] ([place]) Comment on above: Performed By: #### G FR, ANEU, LIPID, CBC, CMP, ADIFF, PSA #### [address] [address] Eosinophil, Absolute 0.1 10 3/mcL Normal 0.0-0.4 [facility] ([place]) Comment on above: Performed By: #### G FR, ANEU, LIPID, CBC, CMP, ADIFF, PSA #### [address] [address] Eosinophils/100 WBC (Bld) 0.8 % Normal 0.0-7.0 [facility] ([place]) Comment on above: Performed By: #### G FR, ANEU, LIPID, CBC, CMP, ADIFF, PSA #### [address] [address] Lymphocyte, Absolute 5.6 10 3/mcL High 0.8-3.9 [facility] ([place]) Comment on above: Performed By: #### G FR, ANEU, LIPID, CBC, CMP, ADIFF, PSA #### [address] [address] Lymphocytes/100 WBC (Bld) 35.2 % Normal 10.0-50.0 [facility] ([place]) Comment on above: Performed By: #### G FR, ANEU, LIPID, CBC, CMP, ADIFF, PSA #### [address] [address] Monocyte, Absolute 0.9 10 3/mcL Normal 0.2-1.0 [facility] ([place]) Comment on above: Performed By: #### G FR, ANEU, LIPID, CBC, CMP, ADIFF, PSA #### [address] [address] Monocytes/100 WBC (Bld) 5.3 % Normal 1.7-13.0 [facility] ([place]) Comment on above: Performed By: #### G FR, ANEU, LIPID, CBC, CMP, ADIFF, PSA #### [address] [address] Neutrophils/100 WBC (Bld) 58.3 % Normal 37.0-80.0 [facility] ([place]) Comment on above: Performed By: #### G FR, ANEU, LIPID, CBC, CMP, ADIFF, PSA #### [address] [address] .GFRon 05-14-2024 GFR 79 ml/min/1.73sqm Normal [facility] ([place]) Comment on above: Result Comment: GFR Population mean for , Non- Americans Ages 20-29 = 116 mL/min/1.73 sq.m. Ages 30-39 = 107 mL/min/1.73 sq.m. Ages 40-49 = 99 mL/min/1.73 sq.m. Ages 50-59 = 93 mL/min/1.73 sq.m. Ages 60-69 = 85 mL/min/1.73 sq.m. Ages 70+ = 75 mL/min/1.73 sq.m. Chronic Kidney Disease: Less than 60 mL/min/1.73 square meters End Stage Renal Disease: Less than 15 mL/min/1.73 square meters Performed By: #### G FR, ANEU, LIPID, CBC, CMP, ADIFF, PSA #### [address] [address] GFR Non- 65 ml/min/1.73sqm Normal [facility] ([place]) Comment on above: Result Comment: GFR Population mean for , Non- Americans Ages 20-29 = 116 mL/min/1.73 sq.m. Ages 30-39 = 107 mL/min/1.73 sq.m. Ages 40-49 = 99 mL/min/1.73 sq.m. Ages 50-59 = 93 mL/min/1.73 sq.m. Ages 60-69 = 85 mL/min/1.73 sq.m. Ages 70+ = 75 mL/min/1.73 sq.m. Chronic Kidney Disease: Less than 60 mL/min/1.73 square meters End Stage Renal Disease: Less than 15 mL/min/1.73 square meters Performed By: #### G FR, ANEU, LIPID, CBC, CMP, ADIFF, PSA #### [address] [address] .NEUABSon 05-14-2024 Neutrophil, Absolute 9.3 10 3/mcL High 2.9-6.2 [facility] ([place]) Comment on above: Performed By: #### G FR, ANEU, LIPID, CBC, CMP, ADIFF, PSA #### [address] [address] CBCon 05-14-2024 Erythrocyte distribution width (RBC) [Ratio] 14.7 % High 11.5-14.5 [facility] ([place]) Comment on above: Performed By: #### G FR, ANEU, LIPID, CBC, CMP, ADIFF, PSA #### [address] [address] Hematocrit (Bld) [Volume fraction] 45.9 % Normal 42.0-52.0 [facility] ([place]) Comment on above: Performed By: #### G FR, ANEU, LIPID, CBC, CMP, ADIFF, PSA #### [address] [address] Hgb 15.3 G/dL Normal 14.0-18.0 [facility] ([place]) Comment on above: Performed By: #### G FR, ANEU, LIPID, CBC, CMP, ADIFF, PSA #### [address] [address] MCH (RBC) [Entitic mass] 28.3 pg Normal 27.0-31.2 [facility] ([place]) Comment on above: Performed By: #### G FR, ANEU, LIPID, CBC, CMP, ADIFF, PSA #### [address] [address] MCHC 33.3 G/dL Normal 31.8-35.4 [facility] ([place]) Comment on above: Performed By: #### G FR, ANEU, LIPID, CBC, CMP, ADIFF, PSA #### [address] [address] MCV (RBC) [Entitic vol] 85.1 fL Normal 80.0-94.0 [facility] ([place]) Comment on above: Performed By: #### G FR, ANEU, LIPID, CBC, CMP, ADIFF, PSA #### [address] [address] Platelet 307 10 3/mcL Normal 130-400 [facility] ([place]) Comment on above: Performed By: #### G FR, ANEU, LIPID, CBC, CMP, ADIFF, PSA #### [address] [address] Platelet mean volume (Bld) [Entitic vol] 7.7 fL Normal 7.4-10.4 [facility] ([place]) Comment on above: Performed By: #### G FR, ANEU, LIPID, CBC, CMP, ADIFF, PSA #### [address] [address] RBC 5.39 10 6/mcL Normal 4.04-6.13 [facility] ([place]) Comment on above: Performed By: #### G FR, ANEU, LIPID, CBC, CMP, ADIFF, PSA #### [address] [address] WBC 16.0 10 3/mcL High 4.6-10.8 [facility] ([place]) Comment on above: Performed By: #### G FR, ANEU, LIPID, CBC, CMP, ADIFF, PSA #### [address] [address] CMPon 05-14-2024 Albumin Level 3.5 G/dL Normal 3.4-4.8 [facility] ([place]) Comment on above: Performed By: #### G FR, ANEU, LIPID, CBC, CMP, ADIFF, PSA #### [address] [address] Albumin/Globulin [Mass ratio] 0.9 {ratio} Low 1.1-2.5 [facility] ([place]) Comment on above: Performed By: #### G FR, ANEU, LIPID, CBC, CMP, ADIFF, PSA #### [address] [address] ALP [Catalytic activity/Vol] 51 U/L Normal 40-135 [facility] ([place]) Comment on above: Performed By: #### G FR, ANEU, LIPID, CBC, CMP, ADIFF, PSA #### [address] [address] ALT [Catalytic activity/Vol] 18 U/L Normal 16-63 [facility] ([place]) Comment on above: Performed By: #### G FR, ANEU, LIPID, CBC, CMP, ADIFF, PSA #### [address] [address] AST [Catalytic activity/Vol] 13 U/L Normal 10-40 [facility] ([place]) Comment on above: Performed By: #### G FR, ANEU, LIPID, CBC, CMP, ADIFF, PSA #### [address] [address] Bili Total 0.4 mg/dL Normal 0.2-1.0 [facility] ([place]) Comment on above: Result Comment: Use of this assay is not recommended for patients undergoing treatment with eltrombopag due to the potential for falsely elevated results. Performed By: #### G FR, ANEU, LIPID, CBC, CMP, ADIFF, PSA #### [address] [address] BUN/Creatinine Ratio 13 ratio Normal 7-27 [facility] ([place]) Comment on above: Performed By: #### G FR, ANEU, LIPID, CBC, CMP, ADIFF, PSA #### [address] [address] Calcium [Mass/Vol] 9.4 mg/dL Normal 8.4-10.2 [facility] ([place]) Comment on above: Performed By: #### G FR, ANEU, LIPID, CBC, CMP, ADIFF, PSA #### [address] [address] Chloride [Moles/Vol] 99 mmol/L Normal 98-107 [facility] ([place]) Comment on above: Performed By: #### G FR, ANEU, LIPID, CBC, CMP, ADIFF, PSA #### [address] [address] CO2 [Moles/Vol] 25 mmol/L Normal 23-31 [facility] ([place]) Comment on above: Performed By: #### G FR, ANEU, LIPID, CBC, CMP, ADIFF, PSA #### [address] [address] Creatinine [Mass/Vol] 1.12 mg/dL Normal 0.70-1.30 [facility] ([place]) Comment on above: Performed By: #### G FR, ANEU, LIPID, CBC, CMP, ADIFF, PSA #### [address] [address] Electrolyte Balance 10.0 mEq/L Normal 4.0-15.0 [facility] ([place]) Comment on above: Performed By: #### G FR, ANEU, LIPID, CBC, CMP, ADIFF, PSA #### [address] [address] Globulin 3.7 G/dL Normal [facility] ([place]) Comment on above: Performed By: #### G FR, ANEU, LIPID, CBC, CMP, ADIFF, PSA #### [address] [address] Glucose [Mass/Vol] 216 mg/dL High 80-115 [facility] ([place]) Comment on above: Performed By: #### G FR, ANEU, LIPID, CBC, CMP, ADIFF, PSA #### [address] [address] Potassium [Moles/Vol] 4.0 mmol/L Normal 3.5-5.1 [facility] ([place]) Comment on above: Performed By: #### G FR, ANEU, LIPID, CBC, CMP, ADIFF, PSA #### [address] [place], [place] [address] Sodium [Moles/Vol] 134 mmol/L Low 136-145 [facility] ([place]) Comment on above: Performed By: #### G FR, ANEU, LIPID, CBC, CMP, ADIFF, PSA #### [address] [address] Total Protein 7.2 G/dL Normal 6.4-8.2 [facility] ([place]) Comment on above: Performed By: #### G FR, ANEU, LIPID, CBC, CMP, ADIFF, PSA #### [address] [address] Urea nitrogen [Mass/Vol] 15 mg/dL Normal 7-18 [facility] ([place]) Comment on above: Performed By: #### G FR, ANEU, LIPID, CBC, CMP, ADIFF, PSA #### [address] [address] LIPIDon 05-14-2024 Cholesterol [Mass/Vol] 195 mg/dL Normal 0-200 [facility] ([place]) Comment on above: Result Comment: Chol esterol Reference Interval: Less than 200 Desirable 200-239 Borderline high risk 240 and above High risk Performed By: #### G FR, ANEU, LIPID, CBC, CMP, ADIFF, PSA #### [address] [address] Cholesterol in HDL [Mass/Vol] 35 mg/dL Low 40-60 [facility] ([place]) Comment on above: Performed By: #### G FR, ANEU, LIPID, CBC, CMP, ADIFF, PSA #### [address] [address] Cholesterol in LDL [Mass/Vol] 103 mg/dL Normal 0-130 [facility] ([place]) Comment on above: Performed By: #### G FR, ANEU, LIPID, CBC, CMP, ADIFF, PSA #### [address] [place], [place] [address] Triglyceride [Mass/Vol] 284 mg/dL High 0-150 [facility] ([place]) Comment on above: Result Comment: Trig lyceride Reference Interval: Less than 150 Normal 150-199 Borderline high risk 200-499 High risk 500 or higher Very high risk Performed By: #### G FR, ANEU, LIPID, CBC, CMP, ADIFF, PSA #### [address] [place], [place] [address] PSAon 05-14-2024 Prostate Specific Antigen 0.90 ng/mL Normal 0.00-4.00 [facility] ([place]) Comment on above: Performed By: #### G FR, ANEU, LIPID, CBC, CMP, ADIFF, PSA #### [address] [place], [place] [address] CT THORAX SCREENING W/O CONT RASTon 02-29-2024 CT THORAX SCREENING W/O CONTRAST ORIGINAL EXAMINATION: LOW DOSE SCREENING CT OF THE CHEST WITHOUT CONTRAST02/28/2024 5:59 am TECHNIQUE: Low dose lung cancer screening CT of the chest was performed without the administration of intravenous contrast. Multiplanar reformatted images are provided for review. Automated exposure control, iterative reconstruction, and/or weight based adjustment of the mA/kV was utilized to reduce the radiation dose to as low as reasonably achievable. COMPARISON: None. HISTORY: ORDERING SYSTEM PROVIDED HISTORY: Reason for Exam: Lung Cancer Screeningscreening. 5ft 6in 165lb white male. current smoker. 40pack years. no family hx FINDINGS: The heart is normal in size. Atherosclerosis seen of the coronary arteries and aorta. The great vessels appear normal in caliber. No lymphadenopathy is visible on this unenhanced exam. No suspicious findings seen in the visualized portion of the abdomen. The abdomen is not evaluated in detail. No pulmonary consolidation is identified. There is emphysematous change. There is a 5 mm pleural based nodular focus of airspace opacity in the right middle lobe on series 4, image 69. There are several sub 5 mm calcified granulomas in the right middle. There is some calcified right hilar and mediastinal lymph nodes. There is bilateral emphysematous change. No pneumothorax or pleural effusion. No aggressive osseous lesions visible. Degenerative changes seen in the spine. IMPRESSION: Small lung nodules. For patients with appropriate lung cancer risk, annual CT screening is recommended. There are coronary artery calcifications. Information below is for Lung nodule tracking purposes: Nodule: S3 BLN Other Findings: P-CAC Change: Na Recall : 1yr scr Recall Type: LDCT LungRads: 2s Interpreted by: Cecil Britton MD Preliminary Report By: Cecil Britton MD Electronically signed By Cecil Britton MD Dictated Date: 02/29/2024 9:32:07 AM Prelim Date: 02/29/2024 9:41:38 AM Sign Date: 02/29/2024 9:41:38 AM Ordering Provider: [facility] ([place]) Glucose Glucometer (BldC) [M ass/Vol]Ordered By: Chary Fontaine on 08-28-2023 Glucose [Mass/Vol] 119 mg/dL 74-106 [facility] Comment on above: MANAGEMENT OF PATIEN T CARE PER NURSING PROTOCOL Absolute lymphocyte countOrd ered By: Aaron Jacques on 08-21-2023 Lymphocytes Auto (Unsp spec) [#/Vol] 4.97 10*3/uL 0.83-4.51 [facility] Basophil percentageOrdered B y: Aaron Jacques on 08-21-2023 Basophils/100 WBC (Bld) 0.5 % 0-1 [facility] Chloride [Moles/Vol] 108 mmol/L 98-107 [facility] Eosinophils/100 WBC (Bld) 2.3 % 0-5 [facility] Glucose [Mass/Vol] 197 mg/dL 74-106 [facility] Comment on above: Fasting Glucose resu lt greater than or equal to 126 mg/dL suggests DIABETES MELLITUS per A.D.A. criteria. Neutrophils (Bld) [#/Vol] 6.4 10*3/uL 2.0-7.7 [facility] Neutrophils/100 WBC (Bld) 50.3 % 47-70 [facility] Potassium [Moles/Vol] 3.6 mmol/L 3.5-5.1 [facility] Sodium [Moles/Vol] 139 mmol/L 136-145 [facility] WBC (Bld) [#/Vol] 12.8 10*3/uL 4.4-11.0 [facility] Blood erythrocytes count (nu mber/volume)Ordered By: Aaron Jacques on 08-21-2023 RBC (Bld) [#/Vol] 5.15 10*6/uL 4.6-6.2 [facility] Blood hemoglobin measurement (mass/volume)Ordered By: Aaron Jacques on 08-21-2023 Hemoglobin (Bld) [Mass/Vol] 14.5 g/dL 13.0-16.5 [facility] Blood lymphocytes/100 leukoc ytesOrdered By: Aaron Jacques on 08-21-2023 Lymphocytes/100 WBC (Bld) 38.8 % 19-41 [facility] Blood monocytes/100 leukocyt esOrdered By: Aaron Jacques on 08-21-2023 Monocytes/100 WBC (Bld) 7.9 % 0-10 [facility] Blood platelet mean volumeOr dered By: Aaron Jacques on 08-21-2023 Platelet mean volume (Bld) [Entitic vol] 9.2 fL 6.2-12.0 [facility] Determination of erythrocyte mean corpuscular volume (MCV)Ordered By: Aaron Jacques on 08-21-2023 MCV (RBC) [Entitic vol] 86.6 fL 80-94 [facility] Hematocrit Auto (Bld) [Volum e fraction]Ordered By: Aaron Jacques on 08-21-2023 Hematocrit (Bld) [Volume fraction] 44.6 % 40-54 [facility] Laboratory - Chemistry and C hemistry - challengeOrdered By: Aaron Jacques on 08-21-2023 CO2 [Moles/Vol] 25.0 mmol/L 21.0-32.0 [facility] Urea nitrogen/Creatinine [Mass ratio] 10.3 mg/mg 10-20 [facility] Laboratory - Hematology and Cell countsOrdered By: Aaron Jacques on 08-21-2023 Erythrocyte distribution width (RBC) [Entitic vol] 46.4 fL 35.1-43.9 [facility] Erythrocyte distribution width (RBC) [Ratio] 14.5 % 11.6-14.6 [facility] Immature granulocytes/100 WBC (Bld) 0.200 % 0.0-0.9 [facility] Comment on above: IG% - Immature Granu locytes (promyelocytes, myelocytes and metamyelocytes) > 1% indicates that a LEFT SHIFT is Present. MCH (RBC) [Entitic mass] 28.2 pg 27.0-32.0 [facility] Nucleated RBC/100 WBC (Bld) [Ratio] 0 % 0-5 [facility] MCHC Auto (RBC) [Mass/Vol]Or dered By: Aaron Jacques on 08-21-2023 MCHC (RBC) [Mass/Vol] 32.5 g/dL 32-36 [facility] No Panel InformationOrdered By: Aaron Jacques on 08-21-2023 Estimated GFR (MDRD) Amer 80 mL/min >60 [facility] Comment on above: GFR Calc Estimated GFR (MDRD) Non-Af Amer 66 mL/min >60 [facility] Comment on above: Non- GFR Calc Platelets bldOrdered By: Isabell Jacques on 08-21-2023 Platelets (Bld) [#/Vol] 334 10*3/uL 150-450 [facility] Serum or plasma calcium ricky urement (mass/volume)Ordered By: Aaron Jacques on 08-21-2023 Calcium [Mass/Vol] 9.2 mg/dL 8.5-10.1 [facility] Serum or plasma creatinine m easurement (mass/volume)Ordered By: Aaron Jacques on 08-21-2023 Creatinine [Mass/Vol] 1.17 mg/dL 0.70-1.30 [facility] Comment on above: The validity of the calculated GFR & GFRAA in patients over 70 years has not been determined. Clinical correlation is essential. Serum or plasma urea nitroge n measurement (mass/volume)Ordered By: Aaron Jacques on 08-21-2023 Urea nitrogen [Mass/Vol] 12 mg/dL 7-18 [facility] Thin prep Papanicolaou smear with manual screeningOrdered By: Aaron Jacques on 08-21-2023 Thin prep Papanicolaou smear with manual screening 6 5-15 [facility] Whole blood hemoglobin A1c/t otal hemoglobin ratio (mass fraction)Ordered By: Aaron Jacques on 08-21-2023 HbA1c (Bld) [Mass fraction] 6.2 % 3.8-5.6 [facility] Comment on above: Normal < 5.7 % Predi abetic 5.7 - 6.4 % Diabetic >or= 6.5 % Please note range changes. LABORATORYOrdered By: Dennis Hou on 11-08-2022 Albumin DL <= 20 mg/L (U) [Mass/Vol] 1311 mcg/dL Invalid Interpretation Code AO ADM SS Albumin/Creatinine DL <= 20 mg/L (U) [Mass ratio] 22 mcg/mg Invalid Interpretation Code 0 - 30 mcg/mg AO ADM SS Creatinine (U) [Mass/Vol] 60.2 mg/dL Invalid Interpretation Code 39.0 - 259.0 mg/dL AO ADM SS LABORATORYOrdered By: Tiarra Soriano on 11-08-2022 Albumin BCP dye [Mass/Vol] 3.8 G/dL Invalid Interpretation Code 3.4 - 4.8 G/dL AO ADM SS Albumin/Globulin [Mass ratio] 1.1 {ratio} Invalid Interpretation Code 1.1 - 2.5 ratio AO ADM SS ALP [Catalytic activity/Vol] 51 U/L Invalid Interpretation Code 40 - 135 U/L AO ADM SS ALT With P-5'-P [Catalytic activity/Vol] 14 U/L Invalid Interpretation Code 16 - 63 U/L AO ADM SS AST With P-5'-P [Catalytic activity/Vol] 15 U/L Invalid Interpretation Code 10 - 40 U/L AO ADM SS Bilirubin [Mass/Vol] 0.4 mg/dL Invalid Interpretation Code 0.2 - 1.0 mg/dL AO ADM SS Calcium [Mass/Vol] 9.9 mg/dL Invalid Interpretation Code 8.4 - 10.2 mg/dL AO ADM SS Chloride [Moles/Vol] 105 mmol/L Invalid Interpretation Code 98 - 107 mmol/L AO ADM SS Cholesterol [Mass/Vol] 168 mg/dL Invalid Interpretation Code 0 - 200 mg/dL AO ADM SS Cholesterol in HDL [Mass/Vol] 34 mg/dL Invalid Interpretation Code 40 - 60 mg/dL AO ADM SS Cholesterol in LDL [Mass/Vol] 101 mg/dL Invalid Interpretation Code 0 - 130 mg/dL AO ADM SS CO2 [Moles/Vol] 24 mmol/L Invalid Interpretation Code 23 - 31 mmol/L AO ADM SS Creatinine [Mass/Vol] 1.14 mg/dL Invalid Interpretation Code 0.70 - 1.30 mg/dL AO ADM SS Electrolyte Balance 14.0 mEq/L Invalid Interpretation Code 4.0 - 15.0 mEq/L AO ADM SS Globulin 3.5 G/dL Invalid Interpretation Code AO ADM SS Glucose [Mass/Vol] 101 mg/dL Invalid Interpretation Code 80 - 115 mg/dL AO ADM SS Potassium [Moles/Vol] 4.1 mmol/L Invalid Interpretation Code 3.5 - 5.1 mmol/L AO ADM SS Prostate specific Ag [Mass/Vol] 1.13 ng/mL Invalid Interpretation Code 0.00 - 4.00 ng/mL AO ADM SS Protein [Mass/Vol] 7.3 G/dL Invalid Interpretation Code 6.4 - 8.2 G/dL AO ADM SS Sodium [Moles/Vol] 143 mmol/L Invalid Interpretation Code 136 - 145 mmol/L AO ADM SS Triglyceride [Mass/Vol] 167 mg/dL Invalid Interpretation Code 0 - 150 mg/dL AO ADM SS Urea nitrogen [Mass/Vol] 10 mg/dL Invalid Interpretation Code 7 - 18 mg/dL AO ADM SS Urea nitrogen/Creatinine [Mass ratio] 9 ratio Invalid Interpretation Code 7 - 27 ratio AO ADM SS LABORATORYOrdered By: SYSTEM SYSTEM on 11-08-2022 GFR 78 ml/min/1.73sqm Invalid Interpretation Code AO Chemistry S GFR Non- 64 ml/min/1.73sqm Invalid Interpretation Code AO Chemistry S LABORATORYOrdered By: Tiny Saeed on 11-22-2021 Albumin DL <= 20 mg/L (U) [Mass/Vol] 1230 mcg/dL Invalid Interpretation Code AO ADM SS Albumin/Creatinine DL <= 20 mg/L (U) [Mass ratio] 28 mcg/mg Invalid Interpretation Code 0 - 30 mcg/mg AO ADM SS Creatinine (U) [Mass/Vol] 44.2 mg/dL Invalid Interpretation Code 39.0 - 259.0 mg/dL AO ADM SS Albumin BCP dye [Mass/Vol] 3.9 G/dL Invalid Interpretation Code 3.4 - 4.8 G/dL AO ADM SS Albumin/Globulin [Mass ratio] 1.1 {ratio} Invalid Interpretation Code 1.1 - 2.5 ratio AO ADM SS ALP [Catalytic activity/Vol] 48 U/L Invalid Interpretation Code 40 - 135 U/L AO ADM SS ALT With P-5'-P [Catalytic activity/Vol] 19 U/L Invalid Interpretation Code 16 - 63 U/L AO ADM SS AST With P-5'-P [Catalytic activity/Vol] 17 U/L Invalid Interpretation Code 10 - 40 U/L AO ADM SS Bilirubin [Mass/Vol] 0.4 mg/dL Invalid Interpretation Code 0.2 - 1.0 mg/dL AO ADM SS Calcium [Mass/Vol] 9.9 mg/dL Invalid Interpretation Code 8.4 - 10.2 mg/dL AO ADM SS Chloride [Moles/Vol] 100 mmol/L Invalid Interpretation Code 98 - 107 mmol/L AO ADM SS Cholesterol [Mass/Vol] 183 mg/dL Invalid Interpretation Code 0 - 200 mg/dL AO ADM SS Cholesterol in HDL [Mass/Vol] 30 mg/dL Invalid Interpretation Code 40 - 60 mg/dL AO ADM SS Cholesterol in LDL [Mass/Vol] 107 mg/dL Invalid Interpretation Code 0 - 130 mg/dL AO ADM SS CO2 [Moles/Vol] 25 mmol/L Invalid Interpretation Code 23 - 31 mmol/L AO ADM SS Creatinine [Mass/Vol] 1.11 mg/dL Invalid Interpretation Code 0.70 - 1.30 mg/dL AO ADM SS Electrolyte Balance 10.0 mEq/L Invalid Interpretation Code AO ADM SS Globulin 3.7 G/dL Invalid Interpretation Code AO ADM SS Glucose [Mass/Vol] 106 mg/dL Invalid Interpretation Code 80 - 115 mg/dL AO ADM SS Potassium [Moles/Vol] 4.5 mmol/L Invalid Interpretation Code 3.5 - 5.1 mmol/L AO ADM SS Prostate specific Ag [Mass/Vol] 0.24 ng/mL Invalid Interpretation Code 0.00 - 4.00 ng/mL AO ADM SS Protein [Mass/Vol] 7.6 G/dL Invalid Interpretation Code 6.4 - 8.2 G/dL AO ADM SS Sodium [Moles/Vol] 135 mmol/L Invalid Interpretation Code 136 - 145 mmol/L AO ADM SS Triglyceride [Mass/Vol] 231 mg/dL Invalid Interpretation Code 0 - 150 mg/dL AO ADM SS Urea nitrogen [Mass/Vol] 12 mg/dL Invalid Interpretation Code 7 - 18 mg/dL AO ADM SS Urea nitrogen/Creatinine [Mass ratio] 11 ratio Invalid Interpretation Code 7 - 27 ratio AO ADM SS LABORATORYOrdered By: SYSTEM SYSTEM on 11-22-2021 GFR 81 ml/min/1.73sqm Invalid Interpretation Code AO Chemistry S GFR Non- 66 ml/min/1.73sqm Invalid Interpretation Code AO Chemistry S LABORATORYOrdered By: Dennis Hou on 11-22-2021 HbA1c (Bld) [Mass fraction] 6.8 % Invalid Interpretation Code 4.3 - 6.4 % AO ADM SS ED NOTEon 09-03-2019 ED NOTE HNO ID: [id number] Author: Ambika Ferrell RN Service: Emergency Medicine Author Type: Registered Nurse Type: ED Notes Filed: 09/04/2019 2:00 PM Note Text: Emergency Services: ED Call Back Questionnaire SERVICE DATE: 09/03/2019 Are you feeling better? Yes Any questions about discharge instructions and follow-up care? No Were you able to make a follow up appointment? Yes Do you have any further questions? No Is there anything that we could have done differently to improve your ED visit? No SIGNATURE: AMBKIA FERRELL RN PATIENT NAME: Luke Dolan DATE: September 04, 2019 TIME: 2:00 PM Normal [facility] ED NOTE HNO ID: [id number] Author: Edith Gorman RN Service: ? Author Type: Registered Nurse Type: ED Notes Filed: 09/03/2019 12:42 PM Note Text: Pt to room from radiology Normal [facility] ED NOTE HNO ID: [id number] Author: Edith Gorman RN Service: ? Author Type: Registered Nurse Type: ED Notes Filed: 09/03/2019 12:30 PM Note Text: Pt ambulatory to radiology Normal [facility] ED NOTE HNO ID: [id number] Author: Edith Gorman RN Service: ? Author Type: Registered Nurse Type: ED Notes Filed: 09/03/2019 12:20 PM Note Text: Patient informed: the name of medication, why we are giving it, possible side effects, what they may expect to feel, and was offered a chance to ask questions, prior to the administration of Keflex, Motrin Normal [facility] ED NOTE HNO ID: [id number] Author: Loco BruceRn) SHARON Chatman Service: Emergency Medicine Author Type: Registered Nurse Type: ED Notes Filed: 09/03/2019 11:57 AM Note Text: Left hand and wrist pain for 3 days denies any injury [facility] ED PROV NOTEon 09-03-2019 ED PROV NOTE HNO ID: [id number] Author: Dennis Canales MD Service: Emergency Medicine Author Type: Physician Type: ED Provider Notes Filed: 09/03/2019 1:15 PM Note Text: ED Provider Note Patient Name: Luke Dolan SERVICE DATE: 09/03/19 History Patient presents with: Hand Pain Patient was in some pain, swelling, redness to the dorsum of his left hand. Patient denies any trauma or injuries, however patient notes he works with his hands frequently and is currently building a garage. Patient denies any fevers. He has not taken any medications prior to presentation. Patient is right-hand dominant. He has worsening pain with range of motion. Hand Pain Severity: Mild Onset quality: Gradual Progression: Worsening Chronicity: New Associated symptoms: rash Associated symptoms: no abdominal pain, no chest pain, no cough, no fever, no shortness of breath and no vomiting PAST MEDICAL HISTORY Diagnosis Date - Back problem - Coronary artery disease - Diabetes (HCC) - High cholesterol - Hypertension - Neck problem - Umbilical hernia PAST SURGICAL HISTORY Procedure Laterality Date - REMOVAL GALLBLADDER 2010 - REPAIR INGUINAL HERNIA 7 surgeries for 13 total repairs - STENT PLACEMENT multiple(7-8) stents - TONSILLECTOMY HX FAMILY HISTORY Problem Relation Age of Onset - other (heart disease [Other]) Mother 03/2014 - other (lung ca [Other]) Father 1985 - Obesity Brother - Obesity Sister - Obesity Sister 2008 - other (colostomy [Other]) Sister reason unknown - other (rheumatic fever [Other]) Sister Social History Tobacco Use - Smoking status: Current Every Day Smoker Packs/day: 1.00 Types: Cigarettes Start date: 05/05/1974 - Smokeless tobacco: Never Used - Tobacco comment: started chewing at age 15 yr-no longer chewing Substance and Sexual Activity - Alcohol use: No Comment: I havent done that for a while - Drug use: No - Sexual activity: Not on file ALLERGIES No Known Allergies Review of Systems Constitutional: Negative for fever. HENT: Negative. Respiratory: Negative for cough and shortness of breath. Cardiovascular: Negative for chest pain. Gastrointestinal: Negative for abdominal pain and vomiting. Musculoskeletal: Negative for back pain and joint swelling. Left hand pain Skin: Positive for rash. Neurological: Negative. All other systems reviewed and are negative. Physical Exam BP 177/90 Pulse 85 Temp 97.3 Resp 18 Ht 5' 6 (1.68m) Wt 166 lb (75.3kg) SpO2 98% BMI 26.81 kg/(m2). O2 Therapy: Room Air Physical Exam Constitutional: He is oriented to person, place, and time. He appears well-developed and well-nourished. HENT: Head: Normocephalic and atraumatic. Eyes: Right eye exhibits no discharge. Left eye exhibits no discharge. Pulmonary/Chest: No respiratory distress. Musculoskeletal: 2 dorsum of the patient's left hand from the MCP joint region of the second third and fourth digits extending proximally towards the wrist crease patient has a moderate area of erythema, and swelling, with increased warmth. There is no fluctuance there is no discharge. Patient has some old scars from what appears to be healing hand wounds. Patient has full range of motion of his thumb all of his digits he has no anatomic snuffbox tenderness hand is warm and well-perfused is a strong radial pulse. There is no erythema past the wrist crease there is no erythema on the palmar surface, there is no erythema circumferential. Neurological: He is alert and oriented to person, place, and time. Skin: No rash noted. Psychiatric: He has a normal mood and affect. His behavior is normal. Judgment and thought content normal. Nursing note and vitals reviewed. Diagnostic Testing ED Labs Ordered and Reviewed - No data to display Procedures ED Course / Clinical Impression MDM / Disposition / Plan This is a 64-year-old male patient who presents to emergency room with complains of left hand pain and swelling. Patient denies any injuries however he notes he works with his hands frequently. Patient is right-hand dominant. Examination patient is have swelling to the dorsum of his left hand with erythema, and increased warmth. There is some old healing scars, and some scabs consistent with previous injuries. Overall presentation is consistent with cellulitis it is not circumferential there is no drainage he has full range of motion and no concern for extensor tenosynovitis. Immunizations are up-to-date, including tetanus. Obtaining an x-ray to look for possible retained foreign body or bony abnormalities. X-ray showed no acute bony abnormalities, there however was possible retained metallic foreign body in the second digit middle phalanx. This is nowhere near the area of concern with the patient's acute infectious process. I did inform the patient of the above and puddled location I feel this retained foreign body is. There is no need for removal today. Treating this as cellulitis given a prescription for Keflex, nonsteroidals, instructed on PCP follow-up. Should patient's symptoms worsen or not improve in a reasonable amount of time he is instructed to return to the emergency room for reevaluation, possible blood work, IV and even possible admission. Patient states understanding of all the above and is discharged. Disposition The patient was discharged. Counseled patient regarding radiology results. As well as the need for follow-up. Discharged home with verbal and written instructions. They were instructed to return as needed for persistent or worsening symptoms or any new concerns. Condition at disposition is improved. SIGNATURE: MD Dennis Kumar MD 09/03/19 1248 Dennis Canales MD 09/03/19 1315 Normal [facility] Office Visit: [facility] 04-13-20 17 Documentation of current medications (procedure) Done Invalid Interpretation Code [employer] Work Phone: Smoking cessation education (procedure) yes Invalid Interpretation Code [employer] Work Phone: [phone] Tobacco use [facility] Current every day smoker Invali d Interpretation Code [employer] Work Phone: Office Visiton 10-12-2016 Dietary management education, guidance, and counseling (procedure) yes Invalid Interpretation Code [employer] Work Phone: Lab Reporton 09-19-2016 Chloride 106 mmol/L Invalid Interpretation Code [employer] Work Phone: CO2 25.8 mmol/L Invalid Interpretation Code [employer] Work Phone: [phone] Creatinine 1.10 mg/dL Invalid Interpretation Code [employer] Work Phone: [phone] Urea nitrogen 13 mg/dL Invalid Interpretation Code [facility] Work Phone: [phone] Potassium 4.4 mmol/L Invalid Interpretation Code [facility] Work Phone: [phone] Sodium 141 mmol/L Invalid Interpretation Code [facility] Work Phone: [phone] Cholesterol 192 mg/dL Invalid Interpretation Code [facility] Work Phone: [phone] HDL Cholesterol 33 mg/dL Invalid Interpretation Code [facility] Work Phone: [phone] LDL Cholesterol 117 mg/dL Invalid Interpretation Code [facility] Work Phone: [phone] Triglyceride 210 mg/dL Invalid Interpretation Code [facility] Work Phone: [phone] Replaced Document: Scotty JENNINGS Observationson 04-05-2016 electrocardiogram interpretation Sinus Rhythm WITHIN NORMAL LIMITS Invalid Interpretation Code [facility] Work Phone: [phone] GE use only - for [employer] import when terms are not otherwise specified 379 ms Invalid Interpretation Code [facility] Work Phone: [phone] P wave axis, electrocardiogram 47 deg Invalid Interpretation Code [facility] Work Phone: [phone] AK interval, electrocardiogram 162 ms Invalid Interpretation Code [facility] Work Phone: [phone] Pulse (Heart Rate) 77 /min Invalid Interpretation Code [facility] Work Phone: [phone] QRS axis, electrocardiogram 21 deg Invalid Interpretation Code [facility] Work Phone: [phone] QRS duration, electrocardiogram 96 ms Invalid Interpretation Code [facility] Work Phone: [phone] QT interval, electrocardiogram new path ms Invalid Interpretation Code [facility] Work Phone: [phone] T wave axis, electrocardiogram 42 deg Invalid Interpretation Code [facility] Work Phone: [phone] Clinical Lists Update: [facility] community pharmacist 03-31-2016 Left ventricular Ejection fraction 60 % Invalid Interpretation Code [facility] Work Phone: [phone] Clinical Lists Update: [facility] community pharmacist 03-04-2016 Anion gap 11.1 mmol/L Invalid Interpretation Code [facility] Work Phone: [phone] BUN/Creatinine Ratio 11.9 mg/mg Invalid Interpretation Code [facility] Work Phone: [phone] Calcium 9.9 mg/dL Invalid Interpretation Code [facility] Work Phone: [phone] Glucose 99 mg/dL Invalid Interpretation Code [facility] Work Phone: [phone] HbA1c 6.2 % Invalid Interpretation Code [facility] Work Phone: [phone] Office Visit: [facility] 03-17-20 15 cardiac risk group C Invalid Interpretation Code [facility] Work Phone: [phone] General cardiovascular disease 10Y risk [#] [place].D'Agostin o N/A Invalid Interpretation Code [facility] Work Phone: [phone] Tobacco smoking status NHIS Former Invalid Interpretation Code [facility] Work Phone: [phone] Clinical Lists Update: [facility] community pharmacist 09-23-2014 Cholesterol to HDL Ratio 5.9 {ratio} Invalid Interpretation Code [facility] Work Phone: [phone] Lab Report: BMPon 05-27-2014 eGFR (non-black) 66 mL/min/{1.73_m2} Normal >60 [facility] Work Phone: [phone] eGFR (non-black) 80 mL/min/{1.73_m2} Normal >60 [facility] Work Phone: [phone] Lab Report: CBCDon 4 Absolute Neutrophil count 6.6 X10 3/UL Normal 2.0-7.7 [facility] Work Phone: [phone] Basophils/100 leukocytes 0.3 % Normal 0-1 [facility] Work Phone: [phone] Eosinophils/100 leukocytes 2.0 % Normal 0-5 [facility] Work Phone: [phone] Erythrocytes (RBC) 5.34 10*6/uL Normal 4.6-6.[address] [facility] Work Phone: [phone] Hematocrit (HCT) 44.3 % Normal 40-54 [facility] Work Phone: [phone] Hemoglobin (HGB) 14.9 g/dL Normal 13.0-16.5 [facility] Work Phone: [phone] Lymphocytes/100 leukocytes 36.7 % Normal 19-41 [facility] Work Phone: [phone] MCH 27.9 pg Normal 27.0-32.0 [facility] Work Phone: [phone] MCHC 33.6 G/GL Normal 32-36 [facility] Work Phone: [phone] MCV 83.0 fL Normal 80-94 [facility] Work Phone: [phone] Monocytes/100 leukocytes 9.0 % Normal 0-10 [facility] Work Phone: [phone] Neutrophils/100 leukocytes 51.8 % Normal 47-70 [facility] Work Phone: [phone] Platelets 327 10*3/mm3 Normal 150-450 [facility] Work Phone: [phone] PMV by Sumeetker 9.5 fL Normal 6.2-12.0 [facility] Work Phone: [phone] WBC (Leukocytes) 12.8 10*3/uL High 4.4-11.0 [facility] Work Phone: [phone]) Lab Report: BIDon 03-18-2013 Bilirubin (direct) 0.06 mg/dL Normal 0.00-0.30 [facility] Work Phone: [phone] Lab Report: CMPon 03-18-2013 Alanine aminotransferase (ALT) 19 U/L Normal 12-78 [facility] Work Phone: [phone] Albumin 3.5 g/dL Normal 3.4-5.0 [facility] Work Phone: [phone] Alkaline phosphatase (ALP) 55 U/L Normal 50-136 [facility] Work Phone: [phone] Aspartate aminotransferase (AST) 15 U/L Normal 15-37 [facility] Work Phone: [phone] Bilirubin (total) 0.30 mg/dL Normal 0.00-1.00 [facility] Work Phone: [phone] Lab Report: LIPIDon 03-18-20 13 very low density lipoproteins 57 mg/dL High 5-40 [facility] Work Phone: Replaced Document: Scotty Vincent 03-11-2013 Pulse (Heart Rate) 379 ms Invalid Interpretation Code [employer] Work Phone: Lab Report: TROPon 2 Troponin I ng/mL Normal <0.06 [employer] Work Phone: Vital Signs Date Time Vital Sign Value Performing Clinician Facility 10-21-2024 09:56-0500 Diastolic Blood Pressure Non-Invasive 72 mm[Hg] DR LOCO WILDE MD [facility] 10-21-2024 09:56-0500 Heart rate 77 /min DR LOCO WILDE MD [facility] 10-21-2024 09:56-0500 Systolic Blood Pressure Non-Invasive 122 mm[Hg] DR LOCO WILDE MD [facility] 10-21-2024 09:51-0500 Diastolic Blood Pressure Non-Invasive 79 mm[Hg] DR LOCO WILDE MD [facility] 10-21-2024 09:51-0500 Heart rate 76 /min DR LOCO WILDE MD [facility] 10-21-2024 09:51-0500 Systolic Blood Pressure Non-Invasive 125 mm[Hg] DR LOCO WILDE MD [facility] 10-21-2024 09:47-0500 Diastolic Blood Pressure Non-Invasive 74 mm[Hg] DR LOCO WILDE MD [facility] 10-21-2024 09:47-0500 Heart rate 73 /min DR LOCO WILDE MD [facility] 10-21-2024 09:47-0500 Systolic Blood Pressure Non-Invasive 103 mm[Hg] DR LOCO WILDE MD [facility] 10-21-2024 09:38-0500 Body temperature 97.52 [degF] DR LOCO WILDE MD [facility] 10-21-2024 09:35-0500 Respiratory Rate - Anes 0 br/min DR LOCO WILDE MD [facility] 10-21-2024 09:30-0500 Respiratory Rate - Anes 0 br/min DR LOCO WILDE MD [facility] 10-21-2024 07:54-0500 Body height 167.[address] LOCO WILDE MD [facility] 10-21-2024 07:54-0500 Body temperature 97.16 [degF] DR LOCO WILDE MD [facility] 10-21-2024 07:54-0500 Body weight 76.[address] LOCO WILDE MD [facility] 10-21-2024 07:54-0500 Heart rate 74 /min DR LOCO WILDE MD [facility] 10-21-2024 07:54-0500 Respiratory rate 13 /min DR LOCO WILDE MD [facility] 10-21-2024 07:49-0500 Body height 167.[address] LOCO WILDE MD [facility] 08-28-2023 14:50-0400 Body temperature 97.9 [degF] Dr. Camden Back Work Phone: [facility] 08-28-2023 14:50-0400 Diastolic blood pressure 64 mm[Hg] Dr. Camden Back Work Phone: [facility] 08-28-2023 14:50-0400 Heart rate 77 /min Dr. Camden Back Work Phone: [facility] 08-28-2023 14:50-0400 Respiratory rate 14 /min Dr. Camden Back Work Phone: [facility] 08-28-2023 14:50-0400 SaO2% (BldA) [Mass fraction] 97 % Dr. Camden Back Work Phone: [facility] 08-28-2023 14:50-0400 Systolic blood pressure 130 mm[Hg] Dr. Camden Back Work Phone: [facility] 08-28-2023 11:46-0400 Body height 170.[address] Camden Back Work Phone: [facility] 08-28-2023 11:46-0400 Body mass index (BMI) [Ratio] 25 kg/m2 Dr. Camden Back Work Phone: [facility] 08-28-2023 11:46-0400 Body weight 72.[address] Camden Back Work Phone: [facility] 08-07-2023 14:09-0400 Body mass index (BMI) [Ratio] 26.5 kg/m2 Dr. Camden Back Work Phone: [facility] 08-07-2023 14:09-0400 Body weight 74.[address] Camden Back Work Phone: [facility] 08-07-2023 14:09-0400 Diastolic blood pressure 91 mm[Hg] Dr. Camden Back Work Phone: [facility] 08-07-2023 14:09-0400 Heart rate 67 /min Dr. Camden Back Work Phone: [facility] 08-07-2023 14:09-0400 Respiratory rate 17 /min Dr. Camden Back Work Phone: [facility] 08-07-2023 14:09-0400 SaO2% (BldA) [Mass fraction] 97 % Dr. Camden Back Work Phone: [facility] 08-07-2023 14:09-0400 Systolic blood pressure 163 mm[Hg] Dr. Camden Back Work Phone: [facility] 06-09-2023 09:42-0400 Body height 167.[address] Camden Back Work Phone: [facility] 06-09-2023 09:42-0400 Body mass index (BMI) [Ratio] 26.8 kg/m2 Dr. Camden Back Work Phone: [facility] 06-09-2023 09:42-0400 Body temperature 98 [degF] Dr. Camden Back Work Phone: [facility] 06-09-2023 09:42-0400 Body weight 75.[address] Camden aBck Work Phone: [facility] 06-09-2023 09:42-0400 Diastolic blood pressure 78 mm[Hg] Dr. Camden Back Work Phone: [facility] 06-09-2023 09:42-0400 Heart rate 71 /min Dr. Camden Back Work Phone: [facility] 06-09-2023 09:42-0400 Respiratory rate 17 /min Dr. Camden Back Work Phone: [facility] 06-09-2023 09:42-0400 Systolic blood pressure 134 mm[Hg] Dr. Camden Back Work Phone: [facility] 04-28-2023 12:59-0400 Body mass index (BMI) [Ratio] 26.3 kg/m2 Dr. Camden Back Work Phone: [facility] 04-28-2023 12:59-0400 Body weight 73.[address] Camden Back Work Phone: [facility] 04-28-2023 12:59-0400 Diastolic blood pressure 67 mm[Hg] Dr. Camden Back Work Phone: [facility] 04-28-2023 12:59-0400 Heart rate 86 /min Dr. Camden Back Work Phone: [facility] 04-28-2023 12:59-0400 Respiratory rate 18 /min Dr. Camden Back Work Phone: [facility] 04-28-2023 12:59-0400 SaO2% (BldA) [Mass fraction] 95 % Dr. Camden Back Work Phone: [facility] 04-28-2023 12:59-0400 Systolic blood pressure 106 mm[Hg] Dr. Camden Back Work Phone: [facility] 04-13-2017 12:59-0400 BMI (Body Mass Index) 26.5 kg/m2 Augusta Evans [facility] Work Phone: 04-13-2017 12:59-0400 BP Diastolic 60 mm[Hg] Augusta Nathan [facility] Work Phone: 04-13-2017 12:59-0400 BP Systolic 118 mm[Hg] Augusta Nathan [facility] Work Phone: 04-13-2017 12:59-0400 Pulse (Heart Rate) 84 /min [facility] Work Phone: 04-13-2017 12:59-0400 Weight 76.75 kg Augusta Nathan [facility] Work Phone: 10-12-2016 12:58-0500 BSA (Body Surface Area) 1.88 m2 Augusta Nathan [facility] Work Phone: 10-12-2016 12:58-0500 Respiratory Rate 16 /min Augusta Nathan [facility] Work Phone: 06-16-2014 14:16-0400 Body Temperature 98.4 [degF] Augusta Nathan [facility] Work Phone: 02-13-2012 14:29-0400 Height 170.18 cm Augusta Evans [facility] Work Phone: 02-13-2012 14:29-0400 Pulse Oximetry 97 % Augusta Evans [facility] Work Phone: Encounters Encounter Date Encounter Type Care Provider Facility Start: 04-28-2025 End: 04-28-2025 Telephone encounter Yesenia Boudreaux MD Work Phone: [facility] Start: 04-23-2025 End: 04-23-2025 Telephone encounter Yesenia Boudreaux MD Work Phone: [facility] Comment on above: Future Appointment ( Attempt to reschedule esophageal manometry ) Start: 03-17-2025 End: 03-17-2025 Telephone encounter Yesenia Boudreaux MD Work Phone: [facility] Comment on above: Future Appointment ( Reschedule manometry/) Start: 03-11-2025 End: 03-11-[address] Camden Back DO Work Phone: [facility] Work Phone: Start: 03-11-2025 End: 03-11-[address] Camden Back DO -[facility] Start: 03-11-2025 End: 03-11-2025 ambulatory Camden Back Facility:[facility] Start: 02-27-2025 End: 02-27-2025 ambulatory CAMDEN BACK DO Facility:[facility] Start: 12-11-2024 End: 12-11-2024 Telephone encounter Yesenia Boudreaux MD Work Phone: [facility] Start: 12-11-2024 End: 12-11-[address] Loco Wilde MD -Radiology, [facility] Work Phone: Start: 12-11-2024 End: 12-11-2024 ambulatory Camden Back Facility:[facility] Start: 12-02-2024 End: 12-02-2024 Telephone encounter Yesenia Boudreaux MD Work Phone: [facility] Comment on above: Future Appointment ( Plavix instructions) Start: 11-29-2024 End: 11-29-2024 Telephone encounter Yesenia Boudreaux MD Work Phone: [facility] Comment on above: clearance/medication recommendation Start: 11-12-2024 End: 11-12-2024 Telephone encounter Yesenia Boudreaux MD Work Phone: [facility] Comment on above: Future Appointment ( Esophageal manometry/) Start: 10-31-2024 End: 10-31-2024 ambulatory CAMDEN GUERREROSAKimberly GAVIRIA Facility:[facility] Start: 10-31-2024 End: 10-31-2024 Patient encounter procedure CAMDEN BAKC DO [facility] Start: 10-21-2024 End: 10-21-[address] LOCO WILDE MD Facility:[facility] Start: 10-21-2024 End: 10-21-[address] LOCO WILDE MD [facility] Start: 05-22-2024 End: 05-22-2024 ambulatory Cecil Sterling Facility:[facility] Start: 05-14-2024 End: 05-14-2024 ambulatory CAMDEN BACK DO Facility:[facility] Start: 02-27-2024 End: 02-27-2024 ambulatory CAMDEN BACK DO Facility:[facility] Start: 02-27-2024 End: 02-27-2024 Patient encounter procedure CAMDEN BACK DO [facility] Start: 08-28-2023 Non-patient / Non-visit Dr. Litzy Back Work Phone: [facility] Start: 08-28-2023 End: 08-28-2023 Admission to same day surgery center Dr. Camden Back Work Phone: [facility] Start: 08-28-2023 End: 08-28-[address] Camden Back Work Phone: [facility] Work Phone: Start: 08-07-2023 End: 08-07-[address] Camden Back Work Phone: [facility] Work Phone: Start: 06-30-2023 Non-patient / Non-visit Dr. Litzy Back Work Phone: [facility] Start: 06-30-2023 End: 06-30-[address] Camden Back Work Phone: [facility] Work Phone: Start: 06-30-2023 End: 06-30-[address] Camden Back Work Phone: [facility] Work Phone: Start: 06-13-2023 End: 06-13-[address] Camden Back Work Phone: [facility] Work Phone: Start: 06-13-2023 End: 06-13-[address] Camden Back Work Phone: [facility] Work Phone: Start: 06-09-2023 End: 06-09-[address] Camden Back Work Phone: [facility] Work Phone: Start: 04-28-2023 End: 04-28-[address] Camden Back Work Phone: [facility] Work Phone: Start: 11-08-2022 End: 11-08-2022 Patient encounter procedure CAMDEN BACK DO [facility] Start: 11-22-2021 End: 11-22-2021 Patient encounter procedure CAMDEN BACK DO [facility] Procedures Date Procedure Procedure Detail Performing Clinician Start: 03-11-2025 Positron emission to mography with computed tomography Dr. Camden Back DO Work Phone: Start: 12-11-2024 Radiography of gastrointestinal tract Dr. Camden Back DO Work Phone: Start: 08-28-2023 Laparoscopic repair of hernia of anterior abdominal wall Dr. Camden Back Work Phone: Start: 08-03-2023 Xcapsl ctrc rmvl ins j io lens prosth w/ecp CAMDEN BACK DO Comment on above: right eye-[facility] Start: 06-13-2023 CT of abdomen withou t contrast Dr. Camden Back Work Phone: Start: 04-13-2017 End: 04-13-2017 Follow Up Appt 6 months Marleni reddy PA-C Work Phone: Start: 04-13-2017 End: 04-13-2017 PFM Marleni Zuñiga PA-C Work Phone: Start: 01-25-2017 Cataract extraction and insertion of intraocular lens CAMDEN BACK DO Comment on above: Left Start: 10-12-2016 End: 04-07-2017 Follow Up Appt 6 months Giles Peters MD Start: 10-12-2016 End: 04-07-2017 Follow Up Appt Other Giles Peters MD Start: 10-12-2016 End: 04-07-2017 MMM Giles Peters MD Start: 04-05-2016 End: 04-05-2016 Follow Up Appt 6 months Marleni reddy PA-C Work Phone: Start: 04-05-2016 End: 10-18-2016 Follow Up Appt Other Marleni germain PA-C Work Phone: Start: 04-05-2016 End: 04-05-2016 PFM Marleni Zuñiga PA-C Work Phone: Start: 10-05-2015 End: 10-06-2015 Documentation of current medications Giles Peters MD Start: 10-05-2015 End: 10-05-2015 Follow Up Appt 6 months Giles Peters MD Start: 10-05-2015 End: 10-18-2016 Follow Up Appt Other Giles Peters MD Start: 10-05-2015 End: 10-05-2015 MMM Giles Peters MD Start: 10-05-2015 End: 10-06-2015 Smoking cessation education Giles mariscal MD Start: 09-17-2015 End: 10-18-2016 *Hepatic Function Panel Giles Peters MD Start: 09-17-2015 End: 10-18-2016 Lipid panel [AGGREGATE] Giles Peters MD Start: 03-17-2015 End: 03-18-2015 Documentation of current medications Marleni Zuñiga PA-C Work Phone: Start: 03-17-2015 End: 03-17-2015 Electrocardiogram, complete Marleni Mancia PA-C Work Phone: Start: 03-17-2015 End: 03-17-2015 Follow Up Appt 6 months Marleni reddy PA-C Work Phone: Start: 03-17-2015 End: 03-17-2015 Follow Up Appt Other Marleni germain PA-C Work Phone: Start: 03-17-2015 End: 03-17-2015 PFM Marleni Zuñiga PA-C Work Phone: Start: 03-17-2015 End: 03-18-2015 Smoking cessation education Marleni Mancia PA-C Work Phone: Start: 09-15-2014 End: 03-29-2016 *Hepatic Function Panel Giles Peters MD Start: 09-15-2014 End: 09-15-2014 Follow Up Appt 6 months Giles Peters MD Start: 09-15-2014 End: 03-04-2015 Follow Up Appt Other Giles Peters MD Start: 09-15-2014 End: 03-18-2015 Lipid panel [AGGREGATE] Giles Peters MD Start: 09-15-2014 End: 09-15-2014 MMM Giles Peters MD Start: 03-10-2014 End: 03-10-2014 Follow Up Appt 6 months Marleni reddy PA-C Work Phone: Start: 03-10-2014 End: 03-10-2014 Follow Up Appt Other Marleni germain PA-C Work Phone: Start: 03-10-2014 End: 03-10-2014 Follow Up BP Check Marleni Zuñiga PA-C Work Phone: Start: 03-10-2014 End: 03-10-2014 PFM Marleni Zuñiga PA-C Work Phone: Start: 09-11-2013 End: 03-17-2014 *Hepatic Function Panel Giles Peters MD Start: 09-11-2013 End: 09-11-2013 Follow Up Appt 6 months Giles Peters MD Start: 09-11-2013 End: 03-17-2014 Lipid panel [AGGREGATE] Giles Peters MD Start: 09-11-2013 End: 09-11-2013 MMM Giles Peters MD Start: 05-27-2013 End: 02-24-2014 *Hepatic Function Panel Giles Peters MD Start: 05-27-2013 End: 02-24-2014 Lipid panel [AGGREGATE] Giles Peters MD Start: 03-11-2013 End: 03-25-2013 *Hepatic Function Panel Marleni reddy PA-C Work Phone: Start: 03-11-2013 End: 02-24-2014 Follow Up Appt 6 months Marleni reddy PA-C Work Phone: Start: 03-11-2013 End: 03-25-2013 Lipid panel [AGGREGATE] Marleni reddy PA-C Work Phone: Start: 03-11-2013 End: 02-24-2014 PFM Marleni Zuñiga PA-C Work Phone: Start: 11-27-2012 Inguinal hernia (disorder) CAMDEN ANSELMO Comment on above: Repair Start: 08-27-2012 End: 03-25-2013 *Hepatic Function Panel Giles Peters MD Start: 08-27-2012 End: 02-27-2013 Follow Up Appt 6 months Giles Peters MD Start: 08-27-2012 End: 03-25-2013 Lipid panel [AGGREGATE] Giels Peters MD Start: 02-23-2012 End: 02-27-2013 Echocardiography Giles Peters MD Start: 02-23-2012 End: 02-23-2012 Electrocardiogram, complete Giles mariscal MD Start: 02-23-2012 End: 02-27-2013 Follow Up Appt 6 months Giles Peters MD Start: 02-23-2012 End: 02-27-2013 Nuclear stress test -exercise Giles Peters MD Start: 11-27-2010 Cholecystectomy CAMDEN BACK DO Start: 11-27-2009 Placement of stent ELINOR BACK DO Comment on above: multiple stents Tonsillectomy CAMDEN BACK DO Plan of Treatment Date Care Activity Detail Author Start: 2031 RSV Vaccine (1 - 1-dose 75+ series) RSV Vaccine (1 - 1-dose 75+ series) [facility] Start: 07-28-2025 Influenza vaccination Influenza Vaccine (Season Ended) [facility] Start: 02-28-2025 Subsequent hospital visit by physician 02/28/2025 Hospital Encounter [facility] [address] [place] [address] Yesenia Boudreaux MD [address] [facility] [address] [place] [address] Dysphagia, unspecified type [R13.10] [facility] Comment on above: Dysphagia, unspecified type [R13.10] Start: 12-12-2024 End: 12-12-2024 Admission to same day surgery center 12/12/2024 10:00 AM EST - 12/12/2024 11:00 AM EST Surgery [facility] [address] [place] [address] Yesenia Boudreaux MD [address] [facility] [address] [place] [address] ESOPHAGEAL MANOMETRY [facility] Comment on above: ESOPHAGEAL MANOMETRY Start: 12-12-2024 End: 12-12-2024 Esophageal motility study w/interp&rpt ESOPHAGEAL MANOMETRY Dysphagia, unspecified type 12/12/2024 10:00 AM EST [facility] Start: 12-12-2024 Subsequent hospital visit by physician 12/12/2024 10:00 AM EST Hospital Encounter [facility] [address] [place] [address] Yesenia Boudreaux MD [address] [address] Dysphagia, unspecified type [R13.10] [facility] SADELR Comment on above: Dysphagia, unspecified type [R13.10] Start: 11-27-2024 Advance Directive Discussion Advance Directive Discussion [facility] Start: 07-28-2024 Covid-19 Vaccine () Covid-19 Vaccine () [facility] Start: 07-28-2024 Influenza vaccination Influenza Vaccine (#1) [facility] Start: 11-27-2023 Advance Directive Discussion Advance Directive Discussion [facility] Start: 08-28-2023 Patient discharge [facility] Start: 11-29-2017 End: 11-29-2017 Appointment Appointment [facility] Work Phone: Start: 04-13-2017 End: 04-13-2017 Follow Up Appt 6 months Follow Up Appt 6 months [facility] Work Phone: Start: 04-13-2017 End: 04-13-2017 PFM PF [facility] Work Phone: Start: 10-12-2016 End: 04-07-2017 Follow Up Appt 6 months Follow Up Appt 6 months [facility] Work Phone: Start: 10-12-2016 End: 04-07-2017 Follow Up Appt Other Follow Up Appt Other [facility] Work Phone: Start: 10-12-2016 End: 04-07-2017 MMM MMM [facility] Work Phone: Start: 04-05-2016 End: 04-05-2016 Follow Up Appt 6 months Follow Up Appt 6 months [facility] Work Phone: Start: 04-05-2016 End: 10-18-2016 Follow Up Appt Other Follow Up Appt Other [facility] Work Phone: Start: 04-05-2016 End: 04-05-2016 PFM PFM [facility] Work Phone: Start: 10-05-2015 End: 10-05-2015 Follow Up Appt 6 months Follow Up Appt 6 months [facility] Work Phone: Start: 10-05-2015 End: 10-18-2016 Follow Up Appt Other Follow Up Appt Other [facility] Work Phone: Start: 10-05-2015 End: 10-05-2015 MMM MMM [facility] Work Phone: Start: 09-17-2015 End: 10-18-2016 *Hepatic Function Panel *Hepatic Function Panel [facility] Work Phone: Start: 09-17-2015 End: 10-18-2016 Lipid panel [AGGREGATE] *Lipid Profile CC PCP [facility] Work Phone: Start: 03-17-2015 End: 03-17-2015 Electrocardiogram, complete EKG (In office) [facility] Work Phone: Start: 03-17-2015 End: 03-17-2015 Follow Up Appt 6 months Follow Up Appt 6 months [facility] Work Phone: Start: 03-17-2015 End: 03-17-2015 Follow Up Appt Other Follow Up Appt Other [facility] Work Phone: Start: 03-17-2015 End: 03-17-2015 PFM PFM [facility] Work Phone: Start: 09-15-2014 End: 03-29-2016 *Hepatic Function Panel *Hepatic Function Panel [facility] Work Phone: Start: 09-15-2014 End: 09-15-2014 Follow Up Appt 6 months Follow Up Appt 6 months [facility] Work Phone: Start: 09-15-2014 End: 03-04-2015 Follow Up Appt Other Follow Up Appt Other [facility] Work Phone: Start: 09-15-2014 End: 03-18-2015 Lipid panel [AGGREGATE] *Lipid Profile CC PCP [facility] Work Phone: Start: 09-15-2014 End: 09-15-2014 MMM MMM [facility] Work Phone: Start: 03-10-2014 End: 03-10-2014 Follow Up Appt 6 months Follow Up Appt 6 months [facility] Work Phone: Start: 03-10-2014 End: 03-10-2014 Follow Up Appt Other Follow Up Appt Other [facility] Work Phone: Start: 03-10-2014 End: 03-10-2014 Follow Up BP Check Follow Up BP Check [facility] Work Phone: Start: 03-10-2014 End: 03-10-2014 PFM PFM [facility] Work Phone: Start: 09-11-2013 End: 03-17-2014 *Hepatic Function Panel *Hepatic Function Panel [facility] Work Phone: Start: 09-11-2013 End: 09-11-2013 Follow Up Appt 6 months Follow Up Appt 6 months [facility] Work Phone: Start: 09-11-2013 End: 03-17-2014 Lipid panel [AGGREGATE] *Lipid Profile CC PCP [facility] Work Phone: Start: 09-11-2013 End: 09-11-2013 MMM MMM [facility] Work Phone: Start: 05-27-2013 End: 02-24-2014 *Hepatic Function Panel *Hepatic Function Panel [facility] Work Phone: Start: 05-27-2013 End: 02-24-2014 Lipid panel [AGGREGATE] *Lipid Profile [facility] Work Phone: Start: 03-11-2013 End: 03-25-2013 *Hepatic Function Panel *Hepatic Function Panel [facility] Work Phone: Start: 03-11-2013 End: 02-24-2014 Follow Up Appt 6 months Follow Up Appt 6 months [facility] Work Phone: Start: 03-11-2013 End: 03-25-2013 Lipid panel [AGGREGATE] *Lipid Profile [facility] Work Phone: Start: 03-11-2013 End: 02-24-2014 PFM PFM [facility] Work Phone: Start: 08-27-2012 End: 03-25-2013 *Hepatic Function Panel *Hepatic Function Panel [facility] Work Phone: Start: 08-27-2012 End: 02-27-2013 Follow Up Appt 6 months Follow Up Appt 6 months [facility] Work Phone: Start: 08-27-2012 End: 03-25-2013 Lipid panel [AGGREGATE] *Lipid Profile [facility] Work Phone: Start: 02-23-2012 End: 02-23-2012 Echocardiography Echocardiogram (complete) [facility] Work Phone: Start: 02-23-2012 End: 02-23-2012 Electrocardiogram, complete EKG (In office) [facility] Work Phone: Start: 02-23-2012 End: 02-27-2013 Follow Up Appt 6 months Follow Up Appt 6 months [facility] Work Phone: Start: 02-23-2012 End: 02-23-2012 Nuclear stress test -exercise Nuclear stress test -exercise [facility] Work Phone: Start: 2011 Prostate specific antigen measurement Prostate Cancer Screening Discussion [facility] Start: 2006 Pneumococcal Vaccine: 50+ (1 of 1 - PCV) Pneumococcal Vaccine: 50+ (1 of 1 - PCV) [facility] Start: 2006 Screening for malignant neoplasm of lung Lung Cancer Screening [facility] Start: 2006 Shingrix Vaccine (1 of 2) Shingrix Vaccine (1 of 2) [facility] Start: 2001 Diabetes Screening Diabetes Screening [facility] Start: 2001 Prostate specific antigen measurement Prostate Cancer Screening Discussion [facility] Start: 2001 Screening for malignant neoplasm of colon [facility] Start: 1991 Lipid panel Lipid Screening [facility] Start: 1975 Urine microalbumin profile DTaP,Tdap,Td Vaccine (1 - Tdap) [facility] Start: 1974 Anxiety Screening Anxiety Screening [facility] Start: 1974 Depression Screening Depression Screening [facility] Start: 1974 Hepatitis C screening Hepatitis C Screening [facility] Start: 1956 Abdominal aortic aneurysm screening Abdominal Aortic Aneurysm Screening [facility] Electrocardiographic procedure [facility] Esophageal motility study w/interp&rpt ESOPHAGEAL MANOMETRY Dysphagia, unspecified type [facility] NM Heart Views W str ess and W radionuclide IV [facility] Patient Education HYPERLIPIDEMIA [facility] Work Phone: Patient referral [facility] Work Phone: Immunizations Immunization Date Immunization Notes Care Provider Vince quezada 04-22-2021 SARS-CoV-2 (COVID-19 ) mRNA-1273 vaccine CAMDEN BACK Coridea [facility] 03-25-2021 SARS-CoV-2 (COVID-19 ) mRNA-1273 vaccine CAMDEN BACK DO [facility] Payers Date Payer Category Payer Unknown [id number] 2024 Private Health Insurance [id number] 2024 Medicaid [id number] 2024 Medicare AETNA MEDICARE A ETNA MEDICARE ASSURE HMO D SNP [id number] 2024-Present [phone] [address] [place] [address] Medicare [id number] 2024 Medicare (Managed Care) [id number] 2024 Self-pay [id number] 2024 Unknown [id number] 2023 Unknown [id number] 2013 Unknown [facility] [id number] 1955 Unknown [id number] 1956 Unknown [id number] 1956 Unknown [id number] 1956 Unknown [id number] 1956 Unknown [id number] Medicare MEDICARE PART A B [id number] Unknown [id number] Unknown [id number] Unknown [id number] Social History Date Type Detail Facility Start: 07-08-2019 Light tobacco smoker (finding) [facility] Sex Assigned At [facility] Start: 06-09-2023 End: 08-17-2023 Tobacco smoking status NHIS Unknown if ever smoked [facility] Start: 1955 Sex Assigned At Male [facility] Start: 05-05-1974 End: 05-22-2024 Tobacco smoking status NHIS Smokes tobacco daily [facility] Start: 05-05-1974 History of tobacco use Cigarette Smo ker [facility] Start: 09-03-2019 End: 10-19-2019 Cigarettes smoked current (pack per day) - Reported 1 [facility] Start: 09-03-2019 Tobacco use and exposure Smokeless tobacco non-user [facility] Start: 11-12-2024 Alcoholic beverage intake Current non-drinker of alcohol (finding) [facility] Start: 10-19-2019 End: 11-12-2024 Tobacco use panel [facility] PHQ-2 Score 0 [facility] Start: 1955 Sex assigned at Not on file C [facility] Start: 03-17-2025 Sex Male (finding) [facility] Medical Equipment Procedure Code Equipment Code Equipment Origin al Text Equipment Identifier Dates Repair, hernia, ventral or umbilical, laparoscopic ([id number]) Extra-gynaecologic al surgical mesh, composite-polymer [id number] FDA Start: 08-28-2023 Repair, hernia, ventral or umbilical, laparoscopic Endoscopic manual linear stapler [id number] FDA Start: 08-28-2023 Goals Date Patient Goal Desired Activity /State Functional Status Date Assessment Result Facility 10-21-2024 Functional Status Repositions self [facility] 10-21-2024 Functional Status Maintained [facility] 05-05-2014 Are you deaf, or do you have serious difficulty hearing No 05/05/2014 12:02 PM Karo Shearer RN No [facility] 05-05-2014 Are you blind, or do you have serious difficulty seeing, even when wearing glasses No 05/05/2014 12:02 PM Karo Shearer, SHARON No [facility] 05-05-2014 Do you have serious difficulty walking or climbing stairs No 05/05/2014 12:02 PM Karo Shearer, SHARON No [facility] 05-05-2014 Do you have difficul ty dressing or bathing No 05/05/2014 12:02 PM EDT Karo Simeon RN No [facility] 05-05-2014 Because of a physica l, mental, or emotional condition, do you have difficulty doing errands alone such as visiting a physician's office or shopping No 05/05/2014 12:02 PM EDT Karo Simeon RN No [facility] Mental Status Date Assessment Result Facility 10-21-2024 Mental Status Orientation Oriented x 4 [facility] 10-21-[address] [facility] 08-28-2023 Cognitive function Voice/Name [facility] Work Phone: 05-05-2014 Because of a physica l, mental, or emotional condition, do you have serious difficulty concentrating, remembering, or making decisions No 05/05/2014 12:02 PM EDT Karo Simeon RN No [facility] Clinical Notes 08-28-2023 to 04-28-2025 Telephone Encounter - [place] Blood RN - 04/28/2025 4:36 PM EDTTelephone Encounter - [facility] Blood RN - 04/28/2025 4:36 PM EDTTelephone Encounter - [facility] Blood RN - 04/23/2025 2:30 PM EDT Note Date & Type Note Facility 04-28-2025 Telephone encount er Note Opened in error [facility] 04-28-2025 Miscellaneous Notes Formattin g of this note might be different from the original. Opened in error documented in this encounter [facility] 04-23-2025 Telephone encount er Note I called and left a message on 04/11/25 and again today in an attempt to reschedule esophageal manometry. I left my contact information. Phoenix Blood RN [facility] 04-23-2025 Miscellaneous Notes Formattin g of this note might be different from the original. I called and left a message on 04/11/25 and again today in an attempt to reschedule esophageal manometry. I left my contact information. [facility] Blood RN documented in this encounter [facility] 03-17-2025 Telephone encount er Note I called patient to reschedule his esophageal manometry but patient asked if I would call him back in a week. He said he is scheduled for another test at [place] and would like to get that completed first. I agreed to call him back. Phoenix Blood RN [facility] 03-17-2025 Miscellaneous Notes Formattin g of this note might be different from the original. I called patient to reschedule his esophageal manometry but patient asked if I would call him back in a week. He said he is scheduled for another test at [facility] [place] and would like to get that completed first. I agreed to call him back. [facility] Blood RN documented in this encounter [facility] 12-11-2024 Telephone encount er Note Rescheduled for 02/28/2025 10am. Tess Gonzales LPN [facility] Work Phone: 12-11-2024 Miscellaneous Notes Formattin g of this note might be different from the original. Rescheduled for 02/28/2025 10am. Tess Gonzales LPN Patient called and cancelled manometry for 12/12/24, does not want to reschedule until late January early February. Tess Gonzales LPN documented in this encounter [facility] 12-11-2024 Telephone encount er Note Patient called and cancelled manometry for 12/12/24, does not want to reschedule until late January early February. Tess Gonzales LPN [facility] 12-02-2024 Telephone encount er Note I called patient and informed him that per Dr. Back, he is to start holding his Plavix on 12/06/24 and restart it on 12/13/24. Patient agreed with the plan. Phoenix Blood RN [facility] 12-02-2024 Miscellaneous Notes Formattin g of this note might be different from the original. I called patient and informed him that per Dr. Back, he is to start holding his Plavix on 12/06/24 and restart it on 12/13/24. Patient agreed with the plan. Phoenix Blood RN documented in this encounter [facility] 11-29-2024 Telephone encount er Note Clearance/medication recommendation scanned into chart for review [facility] 11-29-2024 Miscellaneous Notes Formattin g of this note might be different from the original. Clearance/medication recommendation scanned into chart for review documented in this encounter [facility] 11-12-2024 Telephone encount er Note I called the patient and verbally discussed and reviewed the information about esophageal manometry. All of patient's questions were answered. Patient agreed to be scheduled on 12/12/24 at 10:00 AM I sent the patient written information via [employer] about esophageal manometry and the prep instructions, including holding Plavix for 5 days before the test, and directions for the appointment. Patient was informed that he will need to follow up with Dr. Wilde for test results. Phoenix Blood RN [facility] 11-12-2024 Miscellaneous Notes Formattin g of this note might be different from the original. I called the patient and verbally discussed and reviewed the information about esophageal manometry. All of patient's questions were answered. Patient agreed to be scheduled on 12/12/24 at 10:00 AM I sent the patient written information via [employer] about esophageal manometry and the prep instructions, including holding Plavix for 5 days before the test, and directions for the appointment. Patient was informed that he will need to follow up with Dr. Wilde for test results. [place] Blood RN documented in this encounter [facility] 10-31-2024 Note ORIGINAL HISTORY: Reflux and dysphagia COMPARISON: No FLUOROSCOPY TIME: 4 minutes 53 seconds. FLUOROSCOPY IMAGES: 70 FINDINGS: The esophagus is mildly dilated. Peristalsis is poor, and there are tertiary contractions. No mucosal abnormalities are seen. There is narrowing at the gastroesophageal junction, which is not seen to distend properly throughout the examination; a barium tablet does not pass into the stomach. Reflux is not tested due to retained material in the esophagus. IMPRESSION: Diminished peristalsis and dilated esophagus, consistent with some degree of achalasia. Interpreted by: Roni Treadwell MD Preliminary Report By: Roni Treadwell MD Electronically signed By Roni Treadwell MD Dictated Date: 10/31/2024 11:44:40 AM Prelim Date: 10/31/2024 11:49:46 AM Sign Date: 10/31/2024 11:49:46 AM Ordering Provider: [facility] 10-21-2024 Evaluation + Plan note Extrac bhavik from: Title:Clinical Document Author:JUAN WILDEENT M D Date:10/21/24 [place] ADMISSION HISTORY AN D PHYSICIAL CHIEF COMPLAINT: HISTORY OF PRESENT ILLNESS: REVIEW OF SYSTEMS: ACTIVE PROBLEMS: (20) Back spasm (214270092) Cervical disc disease (7790110772) Chronic neck and back pain (245413101) COPD without exacerbation (87176876) Coronary artery disease (8552746125) DDD (degenerative disc disease), lumbar (96795507) Diabetes mellitus (470678813) Dysphagia (982538564) Esophageal reflux disease (362769608) Essential hypertension (92001896) Hx MT, P/S, hernia repair x7, smoker Hyperlipidemia (291128343) Left hip pain (62750599) Leukocytosis (638055641) Primary insomnia (6661864) Screening for prostate cancer (339803518) Smokes less than 1 pack a day with greater than 40 pack year history (223208265) Tobacco dependence due to cigarettes (5500053723) Tobacco use (5430960584) Ventral hernia (5902836595) MEDICATIONS: Active Inpt Meds: None Active PRN Meds: None One Time Meds: None Active IV Meds: Lactated Ringers Infusion 1,000 mL (LR 1,000 mL) Start: 10/21/24 7:42:00 EST, Rate: 50 mL/hr, 10/21/24 7:42:00 EST ALLERGIES: (1) Zetia FAMILY HISTORY: SOCIAL HISTORY: PHYSICAL EXAM: VITALS: TkapfqNrraSWOsaklLQYgZ0UNG9VjpcDf(kg) 10/21 07:5436.2--220153PH55/25 76.2 24 Hr Tmax: 36.2 at 10/21 07:54 36 Hr Tmax: 36.2 at 10/21 07:54 Vital Signs are the last 5 in the past 48 hours. Weights display the last 5 within 7 days. Initial Wt: 10/21 76.2 kg 168 lb Current Wt: 10/21 76.2 kg 168 lb GENERAL: HEENT: CARDIOVASCULAR: RESPIRATORY: ABDOMEN: EXREMETIES: NEUROLOGICAL: PSYCHIATRIC: LABS: No 36hr Lab Data DIAGNOSTICS: IMPRESSION: PLAN: History and Physical Update I have examined the patient; reviewed the H&P and there are no changes to the H&P unless noted below. Future Appointments Appointment Date:10/31/2024 10:30:00 AM Scheduled Provider: Location:[facility] Appointment Type:XR Esophogram W/Barium Tablet Appointment Date:11/06/2024 11:00:00 AM Scheduled Provider:CAMDEN BACK DO Location:[facility] Appointment Type:PC OV Controlled Medication Future Scheduled Tests Laboratory* Complete Blood Count 07/30/24 * Lipid Profile 07/30/24 * Albumin/Creatinine Ratio, Random Urine 05/01/24 Radiology* XR Esophogram W/Barium Tablet 10/31/24 [facility] 11-25-2024 Hospital Discharge instructions Patient Education 10/21/2024 09:40:17 Monitored Anesthesia Care, Care After Monitored Anesthesia Care, Care After These instructions provide you with information about caring for yourself after your procedure. Your health care provider may also give you more specific instructions. Your treatment has been plannedaccording to current medical practices, but problems sometimes occur. Call your health care provider if you have any problems or questions after your procedure. What can I expect after the procedure? After your procedure, you may: Feel sleepy for several hours. Feel clumsy and have poor balance for several hours. Feel forgetful about what happened after the procedure. Have poor judgment for several hours. Feel nauseous or vomit. Have a sore throat if you had a breathing tube during the procedure. Follow these instructions at home: For at least 24 hours after the procedure: Have a responsible adult stay with you. It is important to have someone help care for you until youare awake and alert. Rest as needed. Do not: ?Participate in activities in which you could fall or become injured. ?Drive. ?Use heavy machinery. ?Drink alcohol. ?Take sleeping pills or medicines that cause drowsiness. ?Make important decisions or sign legal documents. ?Take care of children on your own. Eating and drinking Follow the diet that is recommended by your health care provider. If you vomit, drink water, juice, or soup when you can drink without vomiting. Make sure you have little or no nausea before eating solid foods. General instructions Take uiwx-xmn-patbccl and prescription medicines only as told by your health care provider. If you have sleep apnea, surgery and certain medicines can increase your risk for breathing problems. Follow instructions from your health care provider about wearing your sleep device: ?Anytime you are sleeping, including during daytime naps. ?While taking prescription pain medicines, sleeping medicines, or medicines that make you drowsy. If you smoke, do not smoke without supervision. Keep all follow-up visits as told by your health care provider. This is important. Contact a health care provider if: You keep feeling nauseous or you keep vomiting. You feel light-headed. You develop a rash. You have a fever. Get help right away if: You have trouble breathing. Summary For several hours after your procedure, you may feel sleepy and have poor judgment. Have a responsible adult stay with you for at least 24 hours or until you are awake and alert. This information is not intended to replace advice given to you by your health care provider. Make sure you discuss any questions you have with your health care provider. Document Released: 03/05/2017 Document Revised: 02/11/2019 Document Reviewed: 03/05/2017 [employer] Patient Education 2020 [employer]. 10/21/2024 09:40:15 9 - AO Minor Esophagogastroduodenoscopy (02/07) (CUSTOM) Esophagogastroduodenoscopy This is an endoscopic procedure (a procedure that uses a device like a flexible telescope) that allows your caregiver to view the upper stomach and small bowel. This test allows your caregiver to look at the esophagus. The esophagus carries food from your mouth to your stomach. They can also look at your duodenum. This is the first part of the small intestine that attaches to the stomach. This bebeto t is used to detect problems in the bowel such as ulcers and inflammation. MEANING OF TEST Your caregiver will go over the test results with you and discuss the importance and meaning of your results, as well as treatment options and the need for additional tests if necessary. OBTAINING THE TEST RESULTS Your caregiver s office will call you with the results of the test. POST SEDATION INSTRUCTIONS Rest at home today. Since your coordination may be impaired, be cautious on stairways, do not drive any vehicle or operate any heavy machinery, or use any sharp instruments for the remainder of the day. Do not drink any alcoholic beverages or make any major decisions for 24 hours. POST PROCEDURE INSTRUCTIONS Progress slowly with full liquids then resume previous diet and medications. Belching or passing of gas is to be expected. Notify the physician if you have severe chest pain, fever, or if difficulty when swallowing persists. 02/04/14 Custom Follow Up Care 10/17/2024 07:45:04 With:LOCO WILDE Address: [address] [place] [address] [phone] Business (1) When: Unknown [facility] 11-25-2024 Note Date of Service 10/21/2024 Procedure Name EGD with biopsy Consent Taken before procedure Indication Patient with dysphagia Location [facility] Pre-Procedure Exam Dysphagia Procedural Sedation Anesthesia provided a MAC Technique The patient was brought to the endoscopy suite and placed left shoulder down. Endoscope was passed direct visualization down to the esophagus there were tertiary contractions throughout the esophagusthe Z-line was 38 cm from the incisors no evidence of a stricture. The endoscope was passed into the stomach there was diffuse erythema and cobblestoning of the gastric mucosa duodenum was unremarkable. Retroflexion performed in the stomach revealed no evidence of a mass up near the cardia. 12 biopsies were taken in the gastric antrum region and prepyloric area for pathology. The endoscope was withdrawn careful examination esophagus showed no evidence of a stricture there was some tertiary contractions noted throughout the esophagus. Patient tolerated procedure well. Post-Procedure Exam EGD with biopsy Findings History contractions of the esophagus Complications None apparent Total Time Approximately 15 minutes Assessment/Plan Orders: Lactated Ringers Infusion 1,000 mL(LR 1,000 mL), 1000 mL, Intravenous Bedrest, 10/21/24 9:38:00 EST, Strict, continuous, Constant order, Lying on side until alert or as ordered Bedrest, 10/21/24 9:38:00 EST, Strict, continuous, Constant order, Lying on side until alert or as ordered Call Parameters, 10/21/24 9:38:00 EST, Notify for vomiting, severe pain, signs of bleeding, severe abdominal pain, distention or rigidity, Constant order Communication Order (scheduled), 10/21/24 7:42:00 EST, Once, 10/21/24 7:42:00 EST, Pathology TissueRequest Communication Order (scheduled), 10/21/24 7:42:00 EST, Once, 10/21/24 7:42:00 EST, Urine Test or waiver for women of child bearing age Communication Order (scheduled), 10/21/24 7:42:00 EST, Once, 10/21/24 7:42:00 EST, Fasting Blood Sugar priot to procedure of patient is diabetic Diet Order, 10/21/24 9:38:00 EST, Start Meal: Next meal, Clear Liquid Diet, Post exam or after gag reflex returns if EGD, Constant Order, : N/A, : N/A Discharge, 10/21/24 7:42:00 EST, Discharged to: Home, when able to ambulate and after being seen byphysician Discharge Activity, NO activity restrictions, 10/21/24 9:38:00 EST Discharge Diet, Follow the post-operative/post-procedure diet instructions provided by your physician's office., 10/21/24 9:38:00 EST Discharge Wound Care, Follow the post-operative/post-procedure wound care instructions provided by your physician's office., 10/21/24 9:38:00 EST Pathology Tissue Request, 10/21/24 9:33:00 EST, Collected, Routine, Nurse Collect, AP Specimen, GASTRIC ANTRUM BIOPSY, SEE CHART, ESOPHAGOGASTRODUODENOSCOPY WITH BIOPSY, DYSPHAGIA, DYSPHAGIA, Preferred Lab: [facility], [id number] Post Procedure Assessment, 10/21/24 9:38:00 EST, Stop Date 10/21/24 9:38:00 EST, [facility] in [facility] until Renan Score of 12 or Preprocedure Sign Consent, 10/21/24 7:42:00 EST, Once, For EGD Vital Signs, 10/21/24 9:38:00 EST, q15min, 1 hour(s), 10/21/24 10:30:00 EST Vital Signs, 10/21/24 9:38:00 EST, q30min, 1 hour(s), 10/21/24 10:30:00 EST Vital Signs PRN, 10/21/24 9:38:00 EST, PRN order Follow Up/Recommendation Follow-up the biopsies the patient is to undergo an esophagram and esophageal manometry Digitally Signed by LOCO WILDE MD on 10/21/2024 09:41 AM [facility]11-25-2024 Note Discharge Instructions Thank you for allowing [facility] to assist you with your healthcare needs. The following is importantdischarge information regarding your hospital visit. Your Care Team CAMDEN BACK DO What to do next Scheduled Follow-Up Appointments Appointment Type When With Where Contact Information StatusXR Esophogram W/Barium Tablet 0:30 AM EST [facility] [phone] Confirmed PC OV Controlled Medication 11/06/2024 11:00 AM EST CAMDEN BACK DO [facility] Confirmed Follow Up Appointments Follow Up with LOCO WILDE Where:[address] [place] [address] [phone] [facility] (1) The Following Activity and Diet Have Been Ordered for You Discharge Activity - Ordered -- NO activity restrictions, 10/21/24 9:38:00 EST Discharge Diet - Ordered -- Follow the post-operative/post-procedure diet instructions provided by your physician's office.,10/21/24 9:38:00 EST The Following Equipment Has Been Ordered for You Discharge Home Equipment Discharge Wound Care - Ordered -- Follow the post-operative/post-procedure wound care instructions provided by your physician's office., 10/21/24 9:38:00 EST Someone Will Contact You Regarding These Home Health Referrals No home referrals have been ordered for you. No one will call you. Allergies Zetia (Moderate) Palpitations - pounding Medications Please ask your primary doctor or pharmacist before taking any other medication not listed, including over the counter drugs, herbal medications, vitamins and or supplements as they may interact withyour home medications. What How Much When Why Instructions Last Dose Unchanged acetaminophen-oxyCODONE (acetaminophen-oxyCODONE 325 mg-5 mg oral tablet) 1 tab(s) by mouth Every 6 hours Cervical disc disease Chronic neck and back pain Duration: 30 Days Unchanged amLODIPine (amLODIPine 10 mg oral tablet) 1 tab(s) by mouth Once a day Duration: 100 Days Unchanged aspirin 81 Milligram by mouth Every day Unchanged baclofen (baclofen 10 mg oral tablet) 1 tab(s) by mouth Three (3) times a day as needed for Spasm Back spasm Unchanged clopidogrel (Plavix) 75 Milligram by mouth Every day Unchanged evolocumab (Repatha Prefilled Syringe 140 mg/ mL subcutaneous solution) 140 Milligram Subcutaneous Every other week Hyperlipidemia Duration: 28 Days Unchanged fenofibrate (fenofibrate 160 mg oral tablet) 1 tab(s) by mouth Once a day Duration: 100 Days Unchanged lisinopril (lisinopril 40 mg oral tablet) 1 tab(s) by mouth Once a day Duration: 100 Days Unchanged metFORMIN (metFORMIN 500 mg oral tablet EXTENDED RELEASE) 1 tab(s) by mouth Two (2) times a day Duration: 100 Days Unchanged nitroGLYcerin (nitroglycerin 0.4 mg sublingual spray) 1 spray(s) under the tongue Every 5 minutes as needed only Unchanged pantoprazole (pantoprazole 40 mg oral enteric coated tablet) 1 tab(s) by mouth Once a day Esophageal reflux disease Unchanged rosuvastatin (rosuvastatin 40 mg oral tablet) 1 tab(s) by mouth Once a day Duration: 100 Days Please take this list to your next doctor s visit. Bring all medications you take, including over the counter medications, herbals and other supplements with you to your doctor s visit. Patients and families are reminded to discard old lists and to update any records with all medication providers or retail pharmacies. Education Materials Monitored Anesthesia Care, Care After These instructions provide you with information about caring for yourself after your procedure. Your health care provider may also give you more specific instructions. Your treatment has been plannedaccording to current medical practices, but problems sometimes occur. Call your health care provider if you have any problems or questions after your procedure. What can I expect after the procedure? After your procedure, you may: Feel sleepy for several hours. Feel clumsy and have poor balance for several hours. Feel forgetful about what happened after the procedure. Have poor judgment for several hours. Feel nauseous or vomit. Have a sore throat if you had a breathing tube during the procedure. Follow these instructions at home: For at least 24 hours after the procedure: Have a responsible adult stay with you. It is important to have someone help care for you until youare awake and alert. Rest as needed. Do not: ? Participate in activities in which you could fall or become injured. ? Drive. ? Use heavy machinery. ? Drink alcohol. ? Take sleeping pills or medicines that cause drowsiness. ? Make important decisions or sign legal documents. ? Take care of children on your own. Eating and drinking Follow the diet that is recommended by your health care provider. If you vomit, drink water, juice, or soup when you can drink without vomiting. Make sure you have little or no nausea before eating solid foods. General instructions Take gsgn-axp-soqbmpc and prescription medicines only as told by your health care provider. If you have sleep apnea, surgery and certain medicines can increase your risk for breathing problems. Follow instructions from your health care provider about wearing your sleep device: ? Anytime you are sleeping, including during daytime naps. ? While taking prescription pain medicines, sleeping medicines, or medicines that make you drowsy. If you smoke, do not smoke without supervision. Keep all follow-up visits as told by your health care provider. This is important. Contact a health care provider if: You keep feeling nauseous or you keep vomiting. You feel light-headed. You develop a rash. You have a fever. Get help right away if: You have trouble breathing. Summary For several hours after your procedure, you may feel sleepy and have poor judgment. Have a responsible adult stay with you for at least 24 hours or until you are awake and alert. This information is not intended to replace advice given to you by your health care provider. Make sure you discuss any questions you have with your health care provider. Document Released: 03/05/2017 Document Revised: 02/11/2019 Document Reviewed: 03/05/2017 [employer] Patient Education 2020 [employer] Esophagogastroduodenoscopy This is an endoscopic procedure (a procedure that uses a device like a flexible telescope) that allows your caregiver to view the upper stomach and small bowel. This test allows your caregiver to look at the esophagus. The esophagus carries food from your mouth to your stomach. They can also look at your duodenum. This is the first part of the small intestine that attaches to the stomach. This bebeto t is used to detect problems in the bowel such as ulcers and inflammation. MEANING OF TEST Your caregiver will go over the test results with you and discuss the importance and meaning of your results, as well as treatment options and the need for additional tests if necessary. OBTAINING THE TEST RESULTS Your caregiver s office will call you with the results of the test. POST SEDATION INSTRUCTIONS Rest at home today. Since your coordination may be impaired, be cautious on stairways, do not drive any vehicle or operate any heavy machinery, or use any sharp instruments for the remainder of the day. Do not drink any alcoholic beverages or make any major decisions for 24 hours. POST PROCEDURE INSTRUCTIONS Progress slowly with full liquids then resume previous diet and medications. Belching or passing of gas is to be expected. Notify the physician if you have severe chest pain, fever, or if difficulty when swallowing persists. 02/04/14 Custom Additional Information VACCINATE! IT SAVES LIVES! Members of the community who have not yet received the COVID-19 vaccine and would like to receive it can visit one of [facility] vaccine clinics. There are many vaccine clinic locations within the [facility]. For locations and available times, please visit [email or web address] It is important to note that some COVID mobile vaccine clinics are held outdoors and may be canceled in rainy or stormy conditions. To learn more about pediatric vaccinations (ages 5-11), we invite you to visit the [employer] webpage. [email or web address] learn more about the COVID-19 vaccine, we invite you to visit the CDC website for a list of frequently asked questions.https://www.cdc.gov/coronavirus/2019-ncov/vaccines/faq.html [employer] Patient Portal Access Instructions: Stay connected with your healthcare team and access your personal medical information anytime with the [employer] Patient Portal. Please follow the directions below to create your [employer] account: 1.Access the email account you provided upon registration to the hospital/physician office.2.Look for an invitation email from [facility].3.Open the email and access the invitation link: AcceptInvitation to [employer].4.Fill in the required joaquin to create your account. To access your account, visit [employer]. Click the blue button labeled Access Patient Portal and then log in with the username and password that you created in the steps above. You will be able to view your test results, lab results, a summary of your visits, upcoming appointments and more. There is also a convenient messaging option where you can send secure messages to your p litzyvider. In addition, you will have the ability to download any documents or summaries to your computer and/or send the information securely to a physician. Remember that your healthcare information is confidential, so carefully consider who you will allowto register on the [facility] for access to your information. You can also access the [facility] on the [employer] lauren. Simply click on Patient Portal and then log into your account. If you would like to receive a full copy of your medical records, please contact the [facility] Medical Records Department by calling [phone], Monday through Monday between 8 a.m. and 4:30 p.m. HOW TO SAFELY DISPOSE OF PRESCRIPTION MEDICATIONS Please use one of the following methods to safely dispose of your unused medications. 1.Use a drug disposal kit: the drug disposal pouch allows you to safely discard your old and unuseddrugs. Ask your nurse to give you one when you are discharged.2.Visit a local take-back location: Many local pharmacies and police departments have programs that collect old and unwanted prescriptiondrugs. Call your local pharmacy or go to http://Science/4X1Sw2r to find one close to you.3.Make use of household items: Use cat litter or old coffee grounds to dispose medications if other options arenot available. Mix your drugs with these household products, seal them in an airtight container andthrow it into the garbage. Call [facility]: [phone] to be sure your drugs can be disposed of in this way. Some medicines may require a different approach.4.Never flush your medications down the toilet. IF YOU HAVE BEEN PRESCRIBED AN OPIOID FOR PAIN If you have been prescribed an opioid (such as hydrocodone, oxycodone or morphine), it is critical to understand the possible side effects and risks of opioid pain medications. Even when taken as directed, opioids can have several side effects including: Tolerance, meaning you might need to take more of a medication for the same pain relief. Nausea, vomiting and/or constipation. Sleepiness, dizziness, dry mouth, confusion, depression or itching. Physical dependence, meaning you have withdrawal symptoms when a medication is stopped, can develop within a few days. KNOW YOUR RESPONSIBILITIES It is important to know exactly how much and how often to take the opioid pain medications you are prescribed. Never take opioids in higher amounts or more often than prescribed. Do not combine opioids with alcohol or other drugs that cause drowsiness, such as benzodiazepines, also known as benzos, including diazepam and alprazolam, muscle relaxants or sleep aids. Never sell or share prescription opioids. This is illegal. Store opioids in a secure place and out of reach of others (including children, family, friends and visitors). The last page of this document has been signed and retained as a CHART COPY. Signatures Patient Education Materials Monitored Anesthesia Care, Care After 9 - AO Minor Esophagogastroduodenoscopy (02/07) (CUSTOM) Medication Leaflets My discharge plan and instructions have been reviewed and explained to me and I,LUKE DOLAN SR understand my current condition and have read and understand these discharge instructions. I have received a written copy of the plan/instructions. If I have questions, I am aware that I should contactmy doctor. 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 Signature: Date/Time: Relationship to Patient: Witness Name/Signature: Date/Time: [facility]11-25-2024 Anesthesiology Consult note Patient: MAGDALENO MORENO LUKE Germain Age: 69 years Sex: Male : 1955 Associated Diagnoses: None Author: AFSHIN ZHENG SHIPYARD PAINTER APPRENTICE-LATEX SPOOLER Assessment Postanesthesia assessment Vitals: Vital signs from flowsheet : Vital Signs 10/21/2024 9:35 EST Heart Rate Monitored 79 bpm bpm Respiratory Rate - Anes 0 br/min br/min Systolic Blood Pressure Non-Invasive 135 mmHg mmHg Diastolic Blood Pressure Non-Invasive 80 mmHg mmHg 10/21/2024 9:30 EST Heart Rate Monitored 84 bpm bpm Respiratory Rate - Anes 0 br/min br/min Systolic Blood Pressure Non-Invasive 151 mmHg mmHg Diastolic Blood Pressure Non-Invasive 94 mmHg mmHg 10/21/2024 9:26 EST Systolic Blood Pressure Non-Invasive 147 mmHg mmHg Diastolic Blood Pressure Non-Invasive 99 mmHg mmHg 10/21/2024 7:54 EST Temperature Temporal Artery 36.2 DegC Apical Heart Rate 74 bpm Respiratory Rate 13 br/min LOW Systolic Blood Pressure Non-Invasive 146 mmHg HI Diastolic Blood Pressure Non-Invasive 74 mmHg . Mental status: alert & oriented x 4. Respiratory function: lungs are clear to auscultation. Respiratory support: none. CV function: Normal rate. Cardiovascular support: none. Pain. Nausea status: see nursing documentation of medications. Postoperative hydration status: within normal limits. Digitally Signed by AFSHIN ZHENG on 10/21/2024 09:38 AM [facility]11-25-2024 Note [place] ADMISSION HISTORY AND PHYSICIAL CHIEF COMPLAINT: HISTORY OF PRESENT ILLNESS: REVIEW OF SYSTEMS: ACTIVE PROBLEMS: (20) Back spasm (993148008) Cervical disc disease (6214639059) Chronic neck and back pain (988617851) COPD without exacerbation (19227213) Coronary artery disease (3434598949) DDD (degenerative disc disease), lumbar (89500449) Diabetes mellitus (904202102) Dysphagia (236890052) Esophageal reflux disease (352525382) Essential hypertension (37007091) Hx MT, P/S, hernia repair x7, smoker Hyperlipidemia (476992768) Left hip pain (80849322) Leukocytosis (722870951) Primary insomnia (2692338) Screening for prostate cancer (343697654) Smokes less than 1 pack a day with greater than 40 pack year history (414757838) Tobacco dependence due to cigarettes (7705544735) Tobacco use (2199945757) Ventral hernia (6016950849) MEDICATIONS: Active Inpt Meds: None Active PRN Meds: None One Time Meds: None Active IV Meds: Lactated Ringers Infusion 1,000 mL (LR 1,000 mL) Start: 10/21/24 7:42:00 EST, Rate: 50 mL/hr, 10/21/24 7:42:00 EST ALLERGIES: (1) Zetia FAMILY HISTORY: SOCIAL HISTORY: PHYSICAL EXAM: VITALS: [id number](kg) 10/21 07:5436.2--289230XS36/25 76.2 24 Hr Tmax: 36.2 at 10/21 07:54 36 Hr Tmax: 36.2 at 10/21 07:54 Vital Signs are the last 5 in the past 48 hours. Weights display the last 5 within 7 days. Initial Wt: 10/21 76.2 kg 168 lb Current Wt: 10/21 76.2 kg 168 lb GENERAL: HEENT: CARDIOVASCULAR: RESPIRATORY: ABDOMEN: EXREMETIES: NEUROLOGICAL: PSYCHIATRIC: LABS: No 36hr Lab Data DIAGNOSTICS: IMPRESSION: PLAN: History and Physical Update I have examined the patient; reviewed the H&P and there are no changes to the H&P unless noted below. Digitally Signed by LOCO WILDE MD on 10/21/2024 09:27 AM [facility]11-25-2024 Anesthesiology Consult note Patient: LUKE DOLAN SR Age: 69 years Sex: Male : 1955 Associated Diagnoses: None Author: AFSHIN ZHENG APRN-LATEX SPOOLER Preoperative Information Time of last food or liquid consumption: 10/20/2024 22:00:00 Anesthesia history Patient's history: negative. Family's history: negative. Review of Systems Ear/Nose/Mouth/Throat: Negative except as documented in history of present illness. Respiratory: Negative except as documented in history of present illness. Cardiovascular: Negative except as documented in history of present illness. Gastrointestinal: Negative except as documented in history of present illness. Genitourinary: Negative except as documented in history of present illness. Endocrine: Negative except as documented in history of present illness. Musculoskeletal: Negative except as documented in history of present illness. Integumentary: Negative except as documented in history of present illness. Neurologic: Negative except as documented in history of present illness. Health Status Allergies: Nonallergic Reactions (Selected) Moderate Zetia- Palpitations - pounding., Allergies (1) ActiveSeverityReaction ZetiaModeratePalpitations - pounding Current medications: (Selected) Inpatient Medications Ordered LR 1,000 mL: 50 mL/hr, Intravenous Prescriptions Prescribed Repatha Prefilled Syringe 140 mg/mL subcutaneous solution: 140 mg, Subcutaneous, q2wk, for 28 day(s), 2 EA, 11 Refill(s) acetaminophen-oxyCODONE 325 mg-5 mg oral tablet: 1 tab(s), Oral, q6hr, for 30 day(s), 120 tab(s), 0Refill(s) amLODIPine 10 mg oral tablet: 10 mg, 1 tab(s), Oral, qDay, for 100 day(s), 100 tab(s), 3 Refill(s) baclofen 10 mg oral tablet: 10 mg, 1 tab(s), Oral, TID, PRN: Spasm, 90 tab(s), 1 Refill(s) fenofibrate 160 mg oral tablet: 160 mg, 1 tab(s), Oral, qDay, for 100 day(s), 100 tab(s), 3 Refill(s) lisinopril 40 mg oral tablet: 40 mg, 1 tab(s), Oral, qDay, for 100 day(s), 100 tab(s), 3 Refill(s) metFORMIN 500 mg oral tablet EXTENDED RELEASE: 500 mg, 1 tab(s), Oral, BID, for 100 day(s), 200 tab(s), 3 Refill(s) pantoprazole 40 mg oral enteric coated tablet: 40 mg, 1 tab(s), Oral, qDay, 90 tab(s), 3 Refill(s) rosuvastatin 40 mg oral tablet: 40 mg, 1 tab(s), Oral, qDay, for 100 day(s), 100 tab(s), 3 Refill(s) Documented Medications Documented Plavix: aspirin: nitroglycerin 0.4 mg sublingual spray: , Medications (1) Active Scheduled: (0) Continuous: (1) Lactated Ringers Infusion 1,000 mL 1,000 mL, Intravenous, 50 mL/hr PRN: (0) Problem list: Medical Cervical disc disease / SNOMED CT 8131117592 / Confirmed COPD without exacerbation / SNOMED CT 86036902 / Confirmed Chronic neck and back pain / SNOMED CT 767502915 / Confirmed Smokes less than 1 pack a day with greater than 40 pack year history / SNOMED CT 914038811 / Confirmed Coronary artery disease / SNOMED CT 9301470931 / Confirmed DDD (degenerative disc disease), lumbar / SNOMED CT 66661051 / Confirmed Diabetes mellitus / SNOMED CT 550612392 / Confirmed Essential hypertension / SNOMED CT 85528722 / Confirmed Esophageal reflux disease / SNOMED CT 907649210 / Confirmed Ventral hernia / SNOMED CT 8042539996 / Confirmed Left hip pain / SNOMED CT 09092885 / Confirmed Leukocytosis / SNOMED CT 601772069 / Confirmed Hyperlipidemia / SNOMED CT 762991718 / Confirmed Dysphagia / SNOMED CT 964743101 / Confirmed Screening for prostate cancer / SNOMED CT 821736647 / Confirmed Primary insomnia / SNOMED CT 1067659 / Confirmed Back spasm / SNOMED CT 121395209 / Confirmed Tobacco dependence due to cigarettes / SNOMED CT 6999796246 / Confirmed Resolved: Cough / SNOMED CT 86216587 Canceled: COPD exacerbation / SNOMED CT 724466768 Canceled: Cervical disc disease / SNOMED CT 8772369625 Canceled: Neoplasm of skin of face / SNOMED CT 56483466 Canceled: Pre-op exam / SNOMED CT 187072672 Canceled: Viral upper respiratory tract infection with cough / SNOMED CT 911411146, Active Problems (20) Back spasm Cervical disc disease Chronic neck and back pain COPD without exacerbation Coronary artery disease DDD (degenerative disc disease), lumbar Diabetes mellitus Dysphagia Esophageal reflux disease Essential hypertension Hx MT, P/S, hernia repair x7, smoker Hyperlipidemia Left hip pain Leukocytosis Primary insomnia Screening for prostate cancer Smokes less than 1 pack a day with greater than 40 pack year history Tobacco dependence due to cigarettes Tobacco use Ventral hernia Histories Past Medical History: Resolved Cough (08875486): Resolved. Family History: Cancer Father Comments: 07/08/2019 10:37 Vita Garibay LPN lung cancer Hypertension Mother Hyperlipidemia Mother Procedure history: Extracapsular cataract removal with insertion of intraocular lens prosthesis (1 stage procedure), manual or mechanical technique (eg, irrigation and aspiration or phacoemulsification); with endoscopic cyclophotocoagulation (01820) on 08/03/2023 at 68 Years. Comments: 08/09/2023 10:38 Vita Garibay LPN right eye-[facility] Cataract extraction and insertion of intraocular lens (6206292634) on 01/25/2017 at 61 Years. Comments: 07/05/2019 13:09 Tawny Brown LPN Left Inguinal hernia (5716176432) in 2012 at 58 Years. Comments: 07/05/2019 13:09 Tawny Brown LPN Repair Cholecystectomy (55193005) in 2010 at 56 Years. Stent placement (199124461) in 2009 at 55 Years. Comments: 07/05/2019 13:10 Tawny Brown LPN multiple stents Tonsillectomy (162641879). Social History: Social & Psychosocial Habits Alcohol 10/21/2024 Use: Never Employment/School 08/14/2024 Status: Retired Substance Abuse 10/21/2024 Use: Never Tobacco 10/21/2024 Tobacco Use: 5-9 cigarettes (between 1 Type: Cigarettes Number of years: 40 Previous treatment: Nicotine replacement Exercise 08/14/2024 Exercise type: Walking Home/Environment 10/21/2024 Domestic Concerns None Living situation: Home/Independent Lives In Single level home Nutrition/Health 10/21/2024 Type of diet: Regular Eating Difficulties None Caffeine intake amount: 4 seervings a day of coffee Physical Examination Vital Signs 10/21/2024 7:54 EST Temperature Temporal Artery 36.2 DegC Apical Heart Rate 74 bpm Respiratory Rate 13 br/min LOW Systolic Blood Pressure Non-Invasive 146 mmHg HI Diastolic Blood Pressure Non-Invasive 74 mmHg Vital Signs (last 24 hrs) Last Charted Temp Hkwuctvy17.2 DegC (OCT 21 07:54) Heart Rate Tduljk08 bpm (OCT 21 07:54) SBPH 146 mmHg (OCT 21 07:54) DBP74 mmHg (OCT 21 07:54) Measurements from flowsheet : Measurements 10/21/2024 7:54 EST Height 167.5 cm Height in inches 65.9 inch(es) Admission Weight 76.2 kg Weight Lbs 167.6 lb [place] Body Weight 63.67 kg 10/21/2024 7:49 EST Height 167.5 cm [place] Body Weight 63.67 kg Pain assessment: Pain Assessment 10/21/2024 7:54 EST Primary Pain Intensity 0 Pain Scale Type 0-10 Pain scale . General: Alert and oriented. Airway: Normal neck range of motion. Mallampati classification: II (soft palate, fauces, uvula visible). Head: Normocephalic. Dentition Evaluation: Dentures, upper. Neck: Full range of motion. Respiratory: Lungs are clear to auscultation. Cardiovascular: Normal rate. Heart Sounds: Normal. Gastrointestinal: Soft. Musculoskeletal Normal range of motion. Integumentary: Intact, Warm, Dry. Neurologic: Alert, Oriented. Review / Management Results review: No qualifying data available , Lab results 10/21/2024 8:04 EST IV Present Present Anesthesia Extension Set Applied Yes Brand Designer On Yes 10/21/2024 8:03 EST Continuous IV Infusions LR Forearm Right 10/21/2024 22 gauge Peripheral IV Activity: Insert new site Peripheral IV Dressing Condition: Clean, Dry, Intact Peripheral IV Dressing Activity: Applied, Transparent dressing Peripheral IV Line Status/Patency: Continuous infusion Peripheral IV Site Condition: No complications Peripheral IV Equipment: Extension set, PRN Adaptor Peripheral IV Number of Attempts: 1 10/21/2024 7:55 EST Respirations Unlabored Respiratory Pattern Regular Breath Sounds Auscultated Anterior and posterior [place] Breath Sounds Clear Abdomen Description Non-distended Abdomen Palpation Non-Tender Skin Temperature Warm Skin Description Hermann, Normal for ethnicity Skin Integrity Intact Skin Moisture General Dry Neurological Symptoms Patient denies Extremity Movement Equal Characteristics of Speech Clear Level of Consciousness Alert Strength All Extremities Strong Tone All Extremities Normal Sensation All Extremities Intact Affect/Behavior Appropriate, Calm, Cooperative Orientation Oriented x 4 Assistive Device None Positioning Repositions self Activity Status ADL Awake Standard Safety ID band on, Allergy Band on, Call device within reach, Bed in low position, Wheels locked, Safety level maintained 10/21/2024 7:54 EST Height 167.5 cm Height in inches 65.9 inch(es) Admission Weight 76.2 kg Weight Lbs 167.6 lb [place] Body Weight 63.67 kg Temperature Temporal Artery 36.2 DegC Apical Heart Rate 74 bpm Respiratory Rate 13 br/min LOW Systolic Blood Pressure Non-Invasive 146 mmHg HI Diastolic Blood Pressure Non-Invasive 74 mmHg Primary Pain Intensity 0 Pain Scale Type 0-10 Pain scale Heart Rhythm Regular Oxygen Therapy Room air Oxygen Saturation 95 % 10/21/2024 7:49 EST Designated Person #1 We May Share PHI Designated Person #1 We May Share PHI Designated Person #1 Relationship Son Privacy Restrictions Requested None Height 167.5 cm [place] Body Weight 63.67 kg Status N/A Sensory Deficits None Infectious Disease Symptoms Patient states no symptoms Infectious Disease Recent Exposure No Alcohol and Drug Use No Employee of Institutional Living No Health Care Employee No History of Exposure to TB No History of Positive Chest X-Ray for TB No History of Positive TB Skin Test No Homeless No Known Immunosuppression No Recent Immigrant No Resident of Institutional Living No Bloody Sputum No Fatigue No Fever No Loss of Appetite No Night Sweats No Persistent Cough > 3 Weeks No Weight Loss No Barriers to Learning None evident Teaching Method Explanation Preferred Spoken Language Marshallese Preferred Written Language Marshallese Patient's Current Physicians [place] [facility] Discharge To, Anticipated Home independently Prev Test Positive/Diagnosis w/COVID-19 No Current Quarantine/Isolated any Illness No Any Contact with Sick Animals/Birds No Traveled Anywhere in Last 30 Days No N/A Personal Devices, Patient Valuables None Admission Note-Nursing Procedure/Therapy Intake 10/21/2024 7:45 EST Allergies Yes Consent Form Signed Yes Patient Dressed In Hospital gown History & Physical On Chart Yes Belongings At Bedside Pants, Shirt, Shoes, Socks, Sweatshirt NPO Status Maintained Allergy Band on and Verified Yes Patient ID Band on and Verified Yes Implants Verified Yes Pacemaker/AICD Verified Yes Site Verified by Patient/Family Yes Last Fluid Intake 10/20/2024 22:30 Last Food Intake 10/20/2024 8:00 . Assessment and Plan [place] [employer] Anesthesiologists (ASA) physical status classification: Class III. Anesthetic Preoperative Plan Premedication: intravenous. Anesthetic technique: MAC. Induction: intravenously. Maintenance airway: Mask. Risks discussed: nausea, vomiting, headache, sore throat, dental injury, hypotension, allergic reaction, serious complications. Informed consent: signed by patient. Digitally Signed by AFSHIN ZHENG on 10/21/2024 08:18 AM Digitally Signed by AFSHIN ZHENG on 10/21/2024 09:41 AM [facility]10-02-2023 Procedure [facility]10-02-2023 History and physical note Author Chary Fontaine [facility] August 28, 2023 12:01pm Note Date/Time August 28, 2023 11 :56am [facility] Medical Records Department [address] [place] [address] History & Physical Exam 08/28/23 1156 MR#: [id number] Acct: [id number] Name: LUKE DOLAN Rep #:[id number] : 1955 68 From: Chary Fontaine MD PCP: Dr. Camden Back DO Status:REG [facility] Location: [place] [address] History and Physical Date of Admission: 08/28/23 Date of Service: 08/07/23 MR#: [id number] Acct: [id number] Name: LUKE DOLAN . Rep #: [id number] : 1955 Provider: Dr. Chary Fontaine MD Age/Sex: 68/M Location: [facility] Status: Signed Intake Vital Signs 06/09/2309:42 08/07/2314:09 Height 5 ft 6 in 5 ft 6 in Weight: 166 lb 164 lb 4 oz BMI 26.8 26.5 BP 134/78 H 163/91 H Blood Pressure Location Rt brachial Rt brachial Position Sitting Sitting Respiration 17 17 Pulse 71 67 Pulse Source Monitor Monitor Temp 98.0 F Temp Source Tympanic Pulse Oximetry (%) 97 Intake Visit Reasons: Update H&P Chief Complaint: update h&p Allergies atorvastatin calcium [From Lipitor] Adverse Reaction (Verified 08/07/23 14:11) Pain in joints Medications metformin 500 mg tablet 500 mg PO BID 02/04/14 [History Confirmed 08/07/23] fenofibrate 160 mg tablet 160 mg PO DAILY #30 tabs 12/17/18 [Rx Confirmed 08/07/23] rosuvastatin 40 mg tablet (Crestor) 40 mg PO DAILY 06/05/19 [History Confirmed 08/07/23] lisinopril 40 mg tablet 40 mg PO DAILY #90 tabs 12/13/21 [Rx Confirmed 08/07/23] nitroglycerin 0.4 mg sublingual tablet 0.4 mg sublingual Q5M PRN Chest Pain #25 tabs 03/21/22 [Rx Confirmed 08/07/23] aspirin 325 mg tablet,delayed release 325 mg PO DAILY@0800 PRN 04/28/23 [History Confirmed 08/07/23] clopidogrel 75 mg tablet 75 mg PO DAILY #90 tabs 04/28/23 [Rx Confirmed 08/07/23] PFSH Medical History Acute MT, anterior wall, subsequent episode of care Atherosclerotic heart disease of [place] coronary artery without angina pectoris Chest pain Dyspnea Essential hypertension Hyperlipidemia Long-term use of high-risk medication Old myocardial infarction Presence of stent in coronary artery (~08/2008) Syncope and collapse Ventral incisional hernia without obstruction or gangrene Surgical History (Updated 08/07/23 @ 14:09 by Desirae Collado) History of cataract surgery History of cholecystectomy (~02/2012) History of hernia repair History of tonsillectomy History of umbilical hernia repair Presence of coronary angioplasty implant and graft (~08/2008) Family History Father CAD (coronary artery disease) Diabetes Thyroid disorder Hypertension Cancer lungMother Hypertension AneurysmBrother CAD (coronary artery disease)Sister Congestive heart failure Social History Smoking Status: Current every day smoker alcohol intake: current HPI HPI HPI: 68-year-old male presents due to ventral hernia to discussed CT abdomen pelvis and surgery. Discussed patient's CAT scan does show his current ventral hernia is directly superior to the previous hernia repair with mesh. Patient states heis still having tenderness in that area but it is reducible. ROS General General: Yes weight change and fatigue; No appetite, colon cancer, breast cancer or weakness HEENT HEENT: Yes difficulty swallowing and eye surgery; No eye injury, swollen glands or hoarseness Endo Endocrine: Yes diabetes mellitus; No thyroid disease, thyroid cancer, Hair loss, heat intolerance or cold intolerance Skin Skin: No rash or changing moles Breast Breast: No left breast lump, right breast lump, nipple discharge, breast pain, abnormal mammogram, abnormal US or breast enlargement Musc Musculoskeletal: Yes back problems and arthritis; No rheumatoid arthritis, gout or joint pain Cardio Cardiovascular: No murmur, pacemaker, heart disease, atrial fibrillation, high blood pressure, heart attack, heart stent, palpitations, shortness of breat withexertion or chest pain Psych Psychiatric: No depression, anxiety or hearing voices Resp Respiratory: No shortness of breath, No sleep apnea, No cough, No COPD, No asthma, No emphysema and No wheezing Gastro Gastrointestinal: No abdominal pain, No nausea or vomiting, No diarrhea, No constipation, No blood in stool, No acid reflux, No hemorrhoids, No ulcers, No gallbladder problem and No black,tarry stools Jalen Hematologic: No blood thinners, No blood disorders, No bleeding, No anemia and No blood clots Neuro Neurologic: No system reviewed and no additional complaints, except as documented, No as per HPI, No abnormal gait, No abnormal hearing, No abnormal movements, No abnormal speech, No behavioral changes, No burning sensations, No confusion, No convulsions, No disequilibrium, No dizziness, No localized weakness, No frequent falls, No headache(s), No lack of coordination, No loss of vision, No memory loss, Yes numbness, No other visual disturbances, No radicularpain, No restless legs, No sensory deficit, No syncope, Yes tingling, No tremor(s), No weakness and No other Exam Const General: cooperative, healthy appearing, comfortable and no acute distress HENMT Head: normocephalic and atraumatic Neck Neck: supple Resp Effort & Inspection: normal respiratory effort Cardio Rate: regular rate GI Inspection: non-distended Palpation: soft, hernia ventral (Reducible) and nontender Other: Patient does have a reducible ventral hernia Skin General: no rashes or lesions noted Neuro General: CN's II-XI intact bilaterally Extrem General: normal to inspection Psych Mental Status: mental status grossly normal Attitude: cooperative Assessment and Plan Assessment and Plan (1) Ventral hernia: Status: Acute Plan We will plan for an open hernia repair with mesh, possible laparoscopic, possible removal of mesh. Discussed with patient CT abdomen pelvis that showed that his new hernia defect is directly superior to his previous mesh. Discussedwith patient unsure if I will be able to do a smaller mesh under an open approach if there is not a landing zone for the mesh to lay flat. Discussed that if this is not the case would plan to do a laparoscopic placement of mesh but I would not be planning to remove the previous mesh if it is intact well. Discussed the procedure including not limited to risk of bleeding, infection, injury to another organ, recurrent hernia, and anesthesia. Patient was agreeable with plan. Had no further questions this time. Agreed to proceed. Chary Fontaine M.D. Pager: [phone] [facility] [address] [place] [address], [facility], [address] [place] [address] Office: [phone] Coding Level of Care Code Off vis,est,level 3 Diagnoses Ventral hernia K43.9 08/08/23 0728 <Electronically signed by Chary Fontaine MD> Date Chary Fontaine MD 08/28/23 1156 <Electronically signed by Chary Fontaine MD> Cosigner Signature (if applicable): CC: Dr. Camden Back DO; Dr. Chary Fontaine MD~ Signed ADDENDUM by Dr. Chary Fontaine MD on 08/28/23 at 1201 Addendum I have examined the patient and the H&P has been reviewed. There are no clinicalchanges since date of exam. 08/28/23 1201<Electronically signed by Chary Fontaine MD> Cosigner Signature (if applicable): cc: Dr. Camden Back DO; Dr. Chary Fontaine MD ~* Signed [facility] Work Phone: Discharge summary Author Chary Fontaine [facility] August 28, 2023 2:07pm Note Date/Time August 28, 2023 2: 00pm [facility] Medical Records Department [address] [place] [address] Instructions for Home/Discharge Instructions 08/28/23 1359 MR#: [id number] Acct: [id number] Name: LUKE DOLAN Rep #:[id number] : 1955 68 From: Chary Fontaine MD PCP: Dr. Camden Back DO Status:[facility] Discharge Instructions Diet Discharge Diet: No restrictions Activity Discharge Activity: May Not Drive (while taking narcotic pain medications.) May shower in (days): 1 Lifting Restrictions: no lifting >20 lbs x 2 wks, no strenuous exercise for 4 wks Dressing / Incision Call your doctor if your incision/area has: Continuous Slow Oozing, Sudden Increased Bleeding, Increased Pain/ Swelling, Increased Redness, Foul Smelling Discharge and Swelling at the incision site Call your doctor if you observe: Fever of 101 or Higher Remove Dressing in: 2 days (Keep supraumbilical pressure dressing in place for 2days) Cleanse incision/area with: Soap & Water Additional Dressing/Incision Instructions:: Steri-Strips will fall off in 7 to 10 days, if they do not fall off okay to remove after 10 days. Follow Up Care Please Follow Up With: Chary Fontaine MD When: Call the office for a follow-up appointment 2 weeks; after 5 PM and on thends call [phone] with any concerns. Test Results: Test results from this visit will be discussed in further detail at your follow- up appointment, if applicable. Discharge Plan Admission Attending Provider: Chary Fontaine Primary Care Provider: Camden Back Discharge Orders/Prescriptions Prescriptions: New oxycodone-acetaminophen 5-325 mg tablet 1 - 2 tab PO Q6H PRN (Reason: pain) 3 Days Qty: 14 0RF Continued fenofibrate 160 mg tablet 160 mg PO DAILY Qty: 30 11RF rosuvastatin [Crestor] 40 mg tablet 40 mg PO DAILY nitroglycerin 0.4 mg tablet, sublingual 0.4 mg SUBLINGUAL Q5M PRN (Reason: Chest Pain) Qty: 25 3RF metformin 500 MG tablet 500 mg PO DAILY baclofen 10 mg tablet 10 mg PO TID PRN (Reason: MUSCLE SPA) Patient Comments: take 1 tablet by mouth three times a day if needed for SPASM(S) aspirin [Adult Aspirin Regimen] 81 mg tablet,delayed release (DR/EC) 81 mg PO DAILY Hold Instructions: Resume on 08/29/23. lisinopril 40 mg tablet 40 mg PO DAILY Qty: 90 3RF Held clopidogrel 75 mg tablet 75 mg PO DAILY Qty: 90 3RF Hold Instructions: Resume on 08/29/23. Other Ambulatory Orders: 12 Lead EKG (Routine) Timeframe: [id number] Location: None Selected Ordered By: Dr. Aaron Jacques Referrals / Follow Up: Camden Back DO [Primary Care Provider] - Disposition Disposition (needs filled in before D/C Order can be placed): Home, Self Care 08/28/23 1407<Electronically signed by Chary Fontaine MD>Chary Fontaine MD CC: Dr. Camden Back DO ~ Signed [facility] Work Phone: Evaluation + Plan note Future Appointments Appointment Date:02/02/2022 11:00:00 AM Scheduled Provider:CAMDEN BACK DO Location:[facility] Appointment Type:PC OV Controlled Medication Future Scheduled Tests Radiology* XR Swallowing Function 02/03/21 [facility] Evaluation + Plan note Future Appointments Appointment Date:02/01/2023 10:30:00 AM Scheduled Provider:CAMDEN BACK DO Location:[facility] Appointment Type:PC OV Controlled Medication [facility] Evaluation + Plan note Future Appointments Appointment Date:05/01/2024 11:00:00 AM Scheduled Provider:CAMDEN BACK DO Location:[facility] Appointment Type:PC OV Controlled Medication Future Scheduled Tests Laboratory* Prostate Specific Antigen 01/31/24 * Complete Blood Count 01/31/24 * Lipid Profile 01/31/24 * Albumin/Creatinine Ratio, Random Urine 01/31/24 * Complete Metabolic Panel 01/31/24 [facility] Evaluation + Plan note Future Appointments Appointment Date:11/06/2024 11:00:00 AM Scheduled Provider:CAMDEN BACK DO Location:[facility] Appointment Type:PC OV Controlled Medication Future Scheduled Tests Laboratory* Complete Blood Count 07/30/24 * Lipid Profile 07/30/24 * Albumin/Creatinine Ratio, Random Urine 05/01/24 [facility] evaluation note* Diagnosis Onset Date Resolution Status Essential hypertension chron ic Hyperlipidemia chronic Nicotine dependence chronic Presence of stent in coronary artery 2008 chronic Ventral hernia acute [facility] Work Phone: Evaluation note* Diagnosis Onset Date Resolution Status Ventral hernia acute Ventral hernia [facility] Work Phone: Evaluation note* Diagnosis Dysphagia, unspecified type- Primary Dysphagia, unspecified type [facility] Diagnosis Dysphagia, unspecified type- Primary [facility] noteNo assessment information availableWCleveland Clinic Foundation Work Phone: Hospital course Narrative No data available for this section [facility] Hospital Discharge instructions No data available for this section [facility] Progress note No data available for this section [facility] Reason for referral (narrative)No reason for referral information availableWCleveland Clinic Foundation Work Phone: Summary Purpose Family History No Family History Records Found Relationship Condition Age at Onset Recorded Date/T denys father Coronary artery disease Unknown Diabetes mellitus Unknown Disorder of thyroid Unknown Hypertension Unknown Malignant neoplasm Unknown mother Hypertension Unknown Aneurysm Unknown brother Coronary artery disease Unknown sister Congestive heart failure Unknown Advance Directives No Advanced Directives Records Found Advance Directive Response Recorded Date/ Time Advance Directives No May 12 16 2:14pm Living Will No May 12, 2016 2:14pm Power [employer] Lead No May 12 6 2:14pm Advance Directive Response Recorded Date/ Time Advance Directives No May 12 16 2:14pm Living Will No August 17, 2023 8:15am [employer] Lead No July 8:15am Advance Directive Response Recorded Date/ Time Advance Directives No May 12 16 2:14pm Chief Complaint and Reason for Visit Chief Complaint 1 y fu POSSIBLE HERNIA - SELF REFERRED UNSPECIFIED ABDOMINAL HERNIA Reason for Visit Essential hypertensi on Hyperlipidemia Nicotine dependence Presence of stent in coronary artery Ventral hernia Chief Complaint 1 y fu POSSIBLE HERNIA - SELF REFERRED UNSPECIFIED ABDOMINAL HERNIA Retinal artery branch occlusion, right eye Reason for Visit Essential hypertensi on Hyperlipidemia Nicotine dependence Presence of stent in coronary artery Ventral hernia Chief Complaint POSSIBLE HERNIA - SE LF REFERRED UNSPECIFIED ABDOMINAL HERNIA Retinal artery branch occlusion, right eye Update H&P Hybrid open/lap Hernia, Ventral Rep Hybrid open/lap Hernia, Ventral Rep Reason for Visit Ventral hernia Ventral hernia Chief Complaint Admit Date Achalasia of cardia December 11, 2024 8 :48am LUNG March 11, 2025 8:5 1am Additional Source Comments (unrecognized sect ion and content) No Status Records FoundNo Status Records FoundNo Status Records FoundNo Status Records FoundNo Status Records Found INFORMATION SOURCE (unrecogn ized section and content) DATE CREATED AUTHOR 09/04/2019 [facility] DATE CREATED AUTHOR AUTHOR'S ORGANIZ ATION 05/15/2024 [facility] ([place] DATE CREATED AUTHOR AUTHOR'S ORGANIZ ATION 03/08/2025 [facility] DATE CREATED AUTHOR AUTHOR'S ORGANIZ ATION 03/17/2025 [facility] DATE CREATED AUTHOR AUTHOR'S ORGANIZ ATION 04/29/2025 [facility] Care Team (unrecognized sect ion and content) Care Team Personnel Name: CAMDEN BACK DO Position: P4 Physician - Primary Care Member Role: Primary Care Physician Address: Address: [address] Care Team Related Persons Name: LON DOLAN Care Teams (unrecognized sec tion and content) Team Status: Active Member Role Status Dates Dr. Camden Back DO Family Provider Active Dr. Camden Back DO Primary Care Provider Active Team Status: Inactive Member Role Status Dates Dr. Camden Back DO Primary Care Provider, Referri ng Provider Active Mariaelena Tuttle [employer], [employer]-C Attending Provider Active Team Status: Inactive Member Role Status Dates Dr. Camden Back DO Primary Care Provider, Referri ng Provider Active Dr. Chary Fontaine MD Attending Provider Active Team Status: Inactive Member Role Status Dates Dr. Camden Back DO Primary Care Provider Active Dr. Chary Fontaine MD Attending Provider, Referring Provider Active Team Status: Active Member Role Status Dates Dr. Camden Back DO Primary Care Provider Active Dr. Aaron Roy MD Attending Provider Active Team Status: Inactive Member Role Status Dates Dr. Camden Back DO Primary Care Provider Active Dr. Jayesh Stein MD Attending Provider, Referring Pr ovider Active Team Status: Active Member Role Status Dates Dr. Camden Back DO Primary Care Provider Active Dr. Aaron Roy MD Attending Provider Active Dr. Jayesh Stein MD Referring Provider Active Team Status: Active Member Role Status Dates Dr. Camden Back DO Primary Care Provider Active Dr. Chary Fontaine MD Attending Provi leo, Referring Provider, Other Provider Active Machine Washer Relationship Specialty Start Date End Date Camden Back DO [address] [facility] [address] [place] [id number] PCP - General Family Medicine 11/12/24 Machine Washer Relationship Specialty Start Date End Date Camden Back DO [address] [place] [address] PCP - General Family Medicine 11/12/24 Machine Washer Relationship Specialty Start Date End Date Camden Back DO [address] [place] [address] PCP - General Family Medicine 11/12/24 Team Status: Active Member Role Status Dates Dr. Camden Back DO Primary Care Provider Active Team Status: Inactive Member Role Status Dates Dr. Camden Back DO Primary Care Provider Active Start: December 11, 2024 End: December 11, 2024 Dr. Loco Wilde MD Attending Provider Active Start: December 11, 2024 End: December 11, 2024 Dr. Loco Wilde MD Referring Provider Active Start: December 11, 2024 End: December 11, 2024 Team Status: Inactive Member Role Status Dates Dr. Camden Back DO Primary Care Provider Active Start: March 11, 2025 End: March 11, 2025 Dr. Camden Back DO Attending Provider Active Start: March 11, 2025 End: March 11, 2025 Dr. Camden Back DO Referring Provider Active Start: March 11, 2025 End: March 11, 2025 Machine Washer Relationship Specialty Start Date End Date Camden Back DO [address] [place] [address] PCP - General Family Medicine 11/12/24 Machine Washer Relationship Specialty Start Date End Date Camden Back DO [address] [place] [address] PCP - General Family Medicine 11/12/24 Goals (unrecognized section and content) Goals may be documented in a n alternate section Source Comments (unrecognize d section and content) In the event this informatio n is protected by the Federal Confidentiality of Alcohol and Drug Abuse Patient Records regulations: The Federal rules restrict any use of the information to criminally investigate or prosecute any alcohol or drug abuse patient.[facility] HospitalIn the event this information is protected by the Federal Confidentiality of Alcohol and Drug Abuse Patient Records regulations: The Federal rules restrict any use of the information to criminally investigate or prosecute any alcohol or drug abuse patient.[facility] HospitalIn the event this information is protected by the Federal Confidentiality of Alcohol and Drug Abuse Patient Records regulations: The Federal rules restrict any use of the information to criminally investigate or prosecute any alcohol or drug abuse patient.[facility] HospitalIn the event this information is protected by the Federal Confidentiality of Alcohol and Drug Abuse Patient Records regulations: The Federal rules restrict any use of the information to criminally investigate or prosecute any alcohol or drug abuse patient.[facility] HospitalIn the event this information is protected by the Federal Confidentiality of Alcohol and Drug Abuse Patient Records regulations: The Federal rules restrict any use of the information to criminally investigate or prosecute any alcohol or drug abuse patient.[facility] HospitalIn the event this information is protected by the Federal Confidentiality of Alcohol and Drug Abuse Patient Records regulations: The Federal rules restrict any use of the information to criminally investigate or prosecute any alcohol or drug abuse patient.[facility] HospitalIn the event this information is protected by the Federal Confidentiality of Alcohol and Drug Abuse Patient Records regulations: The Federal rules restrict any use of the information to criminally investigate or prosecute any alcohol or drug abuse patient.[facility] HospitalIn the event this information is protected by the Federal Confidentiality of Alcohol and Drug Abuse Patient Records regulations: The Federal rules restrict any use of the information to criminally investigate or prosecute any alcohol or drug abuse patient.[facility] Reason for Visit (unrecogniz ed section and content) Reason Comments Future Appointment Esophageal manometry Reason Comments clearance/medication recommendation Reason Comments Future Appointment Plavix instructions Reason Comments Future Appointment Reschedule manometry Reason Comments Future Appointment Attempt to reschedul e esophageal manometry FOR RECORDS PERTAINING TO PATIENTS WHO ARE OR HAVE BEEN ENROLLED IN A CHEMICAL DEPENDENCY/SUBSTANCEABUSE PROGRAM, SOME INFORMATION MAY BE OMITTED. This clinical summary was aggregated from multiple sources. Caution should be exercised in using it in the provision of clinical care. This summary normalizes information from multiple sources, and as a consequence, information in this document may materially change the coding, format and clinical context of patient data. In addition, data may be omitted in some cases. CLINICAL DECISIONS SHOULD BE BASED ON THE PRIMARY CLINICAL RECORDS. [email or web address] [facility]. provides no warranty or guarantee of the accuracy or completeness of information in this document.
--- NOTE | 2025-05-17 11:10 | RAD_ITS ---
PROCEDURE: LUMBAR SPINE 2 OR 3 VIEWS 05/17/2025 REASON FOR EXAM: INJURY/PAIN Initial encounter TECHNIQUE: LUMBAR SPINE 2 OR 3 VIEWS COMPARISON: None. FINDINGS: Vertebrae: Normal height. No vertebral body fracture. Discs: Loss of disc height at L4-5 and L5-S1 Alignment: Normal AP alignment with normal lumbar lordosis Other: RAD/Lumbar Spine 2 or 3 Views IMPRESSION: No acute process identified. Degenerative disc disease Reading [facility]
--- NOTE | 2025-05-17 11:10 | RAD_ITS ---
PROCEDURE: KNEE 4 OR MORE VIEWS 05/17/2025 REASON FOR EXAM: INJURY/PAIN TECHNIQUE: KNEE 4 OR MORE VIEWS COMPARISON: none RAD/Knee 4 or More Views IMPRESSION: No acute fracture or dislocations. Mild to moderate degenerative changes of th e left knee with chondrocalcinosis. Moderate soft tissue edema. Large joint effusion. No radiographic foreign body. Reading Location: [id number]
[2025-05-17 12:06] LABS: Absolute Lymphocyte Count 6.61 X10^3/uL (0.83-4.51); Absolute Neutrophil Count 8.9 X10^3/uL (2.0-7.7); Basophil# 0.09 X10^3/uL; Basophil% 0.5 % (0-1); Eosinophil# 0.18 X10^3/uL; Hematocrit 46.6 % (40-54); Hemoglobin 15.5 g/dL (13.0-16.5); Lymphocyte # 6.61 X10^3/ul (0.83-4.51); Lymphocyte % 37.9 % (19-41); Mean Corp Hgb Conc 33.3 g/dL (32-36); Mean Corpuscular Hgb 28.5 pg (27.0-32.0); Mean Corpuscular Volume 85.8 fL (80-94); Mean Platelet Vol. 9.1 fl (6.2-12.0); Monocyte# 1.64 X10^3/uL; Monocyte% 9.4 % (0-10); NRBC Flagged by Analyzer 0 % (0-5); POSITIVE DIFFERENTIAL YES; Platelet Count 297 K/mm3 (150-450); RBC Distribution Width CV 14.3 % (11.6-14.6); RBC Distribution Width SD 44.8 fl (35.1-43.9); Red Blood Count 5.43 M/mm3 (4.6-6.2); White Blood Count 17.5 K/mm3 (4.4-11.0)
[2025-05-17 12:07] LABS: Differential Indicated SCAN CRITERIA MET
[2025-05-17 12:35] LABS: RBC /Synovial Fluid 0.008 10^6/uL (0); Synovial Fld Mononuclear WBC # 1.353 10^3/ul; Synovial Fld Mononuclear WBC % 10.2 %; Synovial Fld Polynuclear WBC # 11.969 10^3/uL; Synovial Fld Polynuclear WBC % 89.8 %
[2025-05-17 12:37] LABS: AUTO B FLUID DILUENT BKGD CT WBC <0.1 RBC <0.01 (W<.1,R<.01); Appearance /Synovial Fluid Cloudy (CLEAR); Color / Synovial Fluid Yellow (Pale Yellow); Source / Synovial Fluid LT KNEE; Source- Body Fluid SYNOVIAL; Viscosity / Synovial Fluid Mod. Viscous (HIGH)
[2025-05-17 12:47] LABS: CRYSTALS, BODY FLUID NO CRYSTALS SEEN
[2025-05-17 12:51] LABS: ALB/GLOB Ratio 1.3 RATIO (0.9-2.4); AST(SGOT) 19 U/L (<=37); Alanine Aminotransfer ALT/SGPT 9 U/L (<=46); Alkaline Phosphatase 66 U/L (40-129); Anion Gap 14 (5-15); BUN 12 mg/dL (4-19); BUN/Creat Ratio 13.7 RATIO (10-20); Calcium,Total 9.6 mg/dL (7.6-11.0); Carbon Dioxide 20.2 mmol/L (21.0-32.0); Chloride 101 mmol/L (98-108); Creatinine, Serum 0.87 mg/dL (0.70-1.20); EST Glomerular Filtration Rate 94 (>60); Estimated Creatinine Clearance 80.05 ml/min (50-250); Globulin 3.1 g/dL (2.2-4.2); Glucose 112 mg/dL (70-99); Protein, Total 7.1 g/dL (5.9-8.4); Sodium Level 135 mmol/L (133-145); Total Bilirubin 0.47 mg/dL (0.00-1.30)
[2025-05-17 13:17] LABS: Lymph 1 %; Monocyte /Synovial Fluid 26 %; Neutrophil 73 % (0-25)
--- NOTE | 2025-05-17 13:37 | EKG12_ITS ---
Test Reason : PRE OP Blood Pressure : */* mmHG Vent. Rate : 74 BPM Atrial Rate : 74 BPM P-R Int : 174 ms QRS Dur : 84 ms QT Int : 372 ms P-R-T Axes : 43 9 56 degrees QTcB Int : 412 ms Normal sinus rhythm Normal ECG Confirmed by KIESHA GUEVARA, ROSEMARIE ([id number]), department editor KACIE PERKINS ([id number]) on 05/20/2025 6:35:35 AM Referred By: Erickson Robbins Confirmed By: ROSEMARIE POP MD
--- OUTSIDE RECORDS SUMMARY | 2025-05-17 13:41 | XMS RPT_ITS | CCD ---
Author Organization [facility] Care Team Providers Care Adoption Social Worker Name Role Phone Augusta Evans Unavailable CAMDEN BACK DO Primary Care Physician [phone] CAMDEN BACK DO Primary Care Physician [phone] Dr. Camden Back Primary Care Provider Dr. Camden Back Referring Provider [phone] Parag MORGAN, MYRNAC Mariaelena Attending Provider Dr. Chary Fontaine Attending Provider Dr. Aaron Roy Attending Provider Dr. Camden Back Primary Care Provider Dr. Camden Back Referring Provider [phone] Dr. Jayesh Stein Referring Provider Dr. Chary Fontaine Referring Provider Dr. Chary Fontaine Other Provider CAMDEN BACK DO Attending Unavailable CAMDEN BACK DO Primary Care Unavailable CAMDEN BACK DO Attending Unavailable CAMDEN BACK DO Primary Care Unavailable Camden Back DO Primary Care Provider CAMDEN BACK DO Primary Care Unavailable CAMDEN BACK DO Attending Unavailable CAMDEN BACK DO Attending Unavailable CAMDEN BACK DO Primary Care Unavailable DR LOCO WILDE MD Attending Unavailjane e CAMDEN BACK DO Primary Care Unavailable Dr. Camden Back DO Primary Care Provider [phone] Dr. Loco Wilde MD Attending Provider Dr. [...] sources) atorvastatin drug allergy 3 muscle aches [facility] Work Phone: (3 sources) NKA drug allergy 2 [facility] Work Phone: (2 sources) ezetimibe; Translations: [ezetimibe] Drug Allergy 4 Pounding heart (finding) [facility] (1 source) atorvastatin Drug Allergy 4 [facility] Repository Medications Current Medications Medication Drug Class(es) Dates Sig (Normalized) Sig (Original) acetaminophen 325 mg / oxyCODONE hydrochloride 5 mg oral tablet (7 sources) Opioid Agonist Start: 09-24-2024 End: 11-22-2024 take 1 tablet by mouth every six hours acetaminophen-oxy CODONE 325 mg-5 mg oral tablet Dose = 1 tab(s), Oral, q6hr, # 120 tab(s), 0 Refill(s), Pharmacy: [facility] #[id number], Cervical disc disease Chronic neck and back pain, 167.5, cm, 10/21/24 7:55:00 EST, Height, 76.2, kg, 10/21/24 7:55:00 EST, Dosing Weight Start Date: 10/23/24 Stop Date: 11/22/24 Status: Ordered Start: 01-29-2024 End: 02-28-2024 take 1 tablet by mouth every six hours acetaminophen-oxyCODONE 325 mg-5 mg oral tablet Dose = 1 tab(s), Oral, q6hr, # 120 tab(s), 0 Refill(s), Pharmacy: [facility] #[id number], Cervical disc disease, 75.1, cm, 11/01/23 10:58:00 [...] q6hr, # 120 tab(s), 0 Refill(s), Pharmacy: [facility] #[id number], Cervical disc disease, 168, cm, 11/02/22 10:04:00 EST, Height, 77.5, kg, 11/02/22 10:04:00 EST, Dosing Weight Start Date: 11/02/22 Stop Date: 12/02/22 Status: Ordered Start: 11-01-2021 End: 12-01-2021 take 1 tablet by mouth every six hours acetaminophen-oxyCODONE 325 mg-5 mg oral tablet Dose = 1 tab(s), Oral, q6hr, # 100 tab(s), 0 Refill(s), Pharmacy: [facility], Cervical disc disease, 168, cm, 08/04/21 13:17:00 EDT, Height, 80.7, kg, 08/04/21 13:17:00 EDT, Dosing Weight Start Date: 11/01/21 Stop Date: 12/01/21 Status: Ordered amLODIPine 10 mg oral tablet (5 sources) Dihydropyridine Calcium Channel Antonio Start: 05-01-2024 End: 06-05-2025 amLODIPine 10 mg oral tablet Dose : 10 mg = 1 tab(s), Oral, qDay, # 100 tab(s), 3 Refill(s), Pharmacy: [facility] #[id number], 167.5, cm, 05/01/24 11:04:00 EDT, Height, kg, 05/01/24 11:04:00 EDT, Dosing Weight Start Date: 05/01/24 Stop Date: 06/05/25 Status: Ordered Start: 11-02-2022 amLODIPine 10 mg oral tablet Dose : 10 mg = 1 tab(s), Oral, qDay, # 90 tab(s), 3 Refill(s), Pharmacy: [facility] #[id number], 168, cm, 11/02/22 10:04:00 EST, Height, kg, 11/02/22 10:04:00 EST, Dosing Weight Start Date: 11/02/22 Status: Ordered Start: 11-03-2021 amLODIPine 10 mg oral tablet Dose : 10 mg = 1 tab(s), Oral, qDay, # 90 tab(s), 3 Refill(s), [facility], 168, cm, 11/03/21 11:40:00 EST, Height, [...] TABS One tablet by mouth daily ASPIRIN [id number] Giles Peters MD Start: 09-23-2008 take 1 [...] q2wk, # 2 EA, 11 Refill(s), Pharmacy: [facility] #[id number], Hyperlipidemia, 167.5, cm, 08/14/24 13:01:00 EDT, Height, kg, 08/14/24 13:01:00 EDT, Dosing Weight Start Date: 08/14/24 Stop Date: 07/16/25 Status: Ordered fenofibrate 160 mg oral tablet (20 sources) Peroxisome Proliferator Receptor alpha Agonist Start: 05-01-2024 End: 06-05-2025 fenofibrate 160 mg oral tablet Dose : 160 mg = 1 tab(s), Oral, qDay, # 100 tab(s), 3 Refill(s), Pharmacy: [facility] #[id number], 167.5, cm, 05/01/24 11:04:00 EDT, Height, kg, [...] 100 tab(s), 3 Refill(s), [facility]acy: [facility] #[id number], 75.1, cm, 11/01/23 10:58:00 EST, Height, kg, [...] BID, # 200 tab(s), 3 Refill(s), Pharmacy: [facility] #[id number], 167.5, cm, 05/01/24 11:04:00 EDT, Height, kg, [...] qDay, # 90 tab(s), 3 Refill(s), Pharmacy: [facility] #[id number], Esophageal reflux disease, 167.5, cm, 08/14/24 13:01:00 EDT, Height, kg, 08/14/24 13:01:00 EDT, Dosing Weight Start Date: 09/10/24 Status: Ordered rosuvastatin calcium 40 mg oral tablet (11 sources) HMG-CoA Reductase Inhibitor Start: 06-05-2019 End: 12-05-2024 rosuvastatin 40 mg oral tablet Dose : 40 mg = 1 tab(s), Oral, qDay, # 100 tab(s), 3 Refill(s), Pharmacy: [facility] #[id number], 75.1, cm, 11/01/23 10:58:00 EST, Height, kg, 11/01/23 10:58:00 EST, Dosing Weight Start Date: 11/01/23 Stop Date: 12/05/24 Status: Ordered CRESTOR 40 MG TA BS ROSUVASTATIN CALCIUM [id number] Marleni Zuñiga PA-C take 1 tablet by mouth once lauri y CRESTOR TABS One tablet by mouth daily ROSUVASTATIN CALCIUM TABS [id number] Tramaine Black Completed/Discontinued Medications Medication Drug Class(es) Dates Sig (Normalized) Sig (Original) acetaminophen / HYDROcodone (10 sources) Opioid Agonist Start: 09-11-2013 End: 01-27-2014 HYDROCODONE-ACETAMI NOPHEN 5-500 MG TABS as needed HYDROCODONE-ACETAMI NOPHEN [id number] Tramaine Black Start: 09-11-2013 HYDROCODONE-AC ETAMINOPHEN 5-500 MG TABS as needed HYDROCODONE-ACETAMINOPHEN [id number] Giles Peters MD take 1 tablet by [...] # 2 mL, 11 Refill(s), Pharmacy: [facility] [address], [address], cm, 08/04/21 13:17:00 EDT, [...] One tablet by mouth daily ATORVASTATIN CALCIUM [id number] Giles Peters MD carvedilol 25 mg oral tablet (4 sources) alpha-Adrenergic Antonio, beta-Adrenergic Antonio Start: 09-11-2013 End: 01-27-2014 take 0.5 tablet by mouth twice daily COREG 25 MG TABS 1/2 tablet by mouth twice daily CARVEDILOL 42605824985 Giles Peters MD Start: 05-12-2011 End: 09-11-2013 take 1 tablet by mouth twice daily CARVEDILOL 25 MG TABS One tablet by mouth twice daily CARVEDILOL [id number] Giles Peters MD ezetimibe 10 mg oral tablet (3 sources) Dietary Cholesterol Absorption Inhibitor Start: 05-12-2011 End: 02-13-2012 take 1 tablet by mouth once daily ZETIA 10 MG TABS One tablet by mouth daily EZETIMIBE 71029925816 Giles Peters MD hydroCHLOROthiazide 25 mg oral tablet (2 sources) Thiazide Diuretic Start: 03-10-2014 End: 03-31-2014 take 1 tablet by mouth once daily HYDROCHLOROTHIAZIDE 25 MG TABS One tablet by mouth daily HYDROCHLOROTHIAZIDE 98519252092 Paula Patterson RN meloxicam 7.5 mg oral tablet (2 sources) Nonsteroidal Anti-inflammator y Drug Start: 03-18-2013 End: 09-11-2013 take 1 tablet by mouth once daily MOBIC 7.5 MG TABS One tablet by mouth daily MELOXICAM 37167565791 Spring Macedo RN nitroglycerin 0.4 mg sublingual tablet (20 sources) Nitrate Vasodilator Start: 03-10-2014 End: 05-22-2024 Nitroglycerin 0.4 mg tablet, sublingual Discontinued 0.4 mg SL Q5M as needed for Chest Pain March 28, 2018 9:00am December 17, 2018 4:03pm Start: 05-12-2011 NITROGLYCERIN 0.4 MG/HR PT24 1 tablet under tongue every 5 min up to 3 X NITROGLYCERIN [id number] Giles Peters MD Start: 09-23-2008 nitroglycerin 0.4 [...] # 2 mL, 11 Refill(s), Pharmacy: [facility], [address], cm, 08/04/21 13:17:00 EDT, Height, kg, 08/04/21 13:17:00 EDT, Dosing Weight Start Date: 08/04/21 Status: Ordered pravastatin sodium 80 mg oral tablet (1 source) HMG-CoA Reductase Inhibitor take 1 tablet by mouth once daily PRAVASTATIN SODIUM 80 MG TABS One tablet by mouth daily PRAVASTATIN SODIUM [id number] Giles Peters MD simvastatin 80 mg oral tablet (1 source) HMG-CoA Reductase Inhibitor Start: 05-12-2011 take 1 tablet by mouth at bedtime SIMVASTATIN 80 MG TABS One tablet by mouth at bedtime. 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] Onset: 05-12-2011 05-12-2011 Episodic [...] Test Name Value Interpretation Reference Range Facility [facility] 04-28-2025 [facility] Telephone (AGGENS4) LUKE DOLAN ([id number]) 1955 M Date Time Provider Department 04/28/25 YESENIA BOUDREAUX AGGENS4 During your visit today, we recorded the following information about you: Phoenix Blood RN 04/28/2025 4:36 PM Signed Opened in error Allergies As of Date: 04/28/2025 (No Known Allergies) Date Reviewed: 09/03/2019 Reviewed by: Loco Cahtman), RN - Fully Assessed Prescriptions as of [...] Encounter Status:Closed by [facility] [facility] on 04/28/25 [facility] 04-23-2025 [facility] Telephone (AGGENS4) LUKE DOLAN ([id number]) 1955 M Date Time Provider Department 04/23/25 [...] by [facility] on 04/23/25 [facility] [place] 03-17-2025 [facility] Telephone (AGGENS4) LUKE DOLAN ([id number]) 1955 M Date Time Provider Department 03/17/25 YESENIA BOUDREAUX AGGENS4 During your visit today, we recorded the following information about you: Phoenix Blood RN 03/17/2025 10:26 AM Signed I called patient to reschedule his esophageal manometry but patient asked if I would call him back in a week. He said he is scheduled for another test at [place] and would like to get that completed [...] Status:Closed by [facility] [facility] on 03/17/25 Normal [facility] PET/CT Tumor Base -Thigh Ini ton 03-11-2025 PET/CT Tumor Base -Thigh Init [facility] Imaging Services [address] [place] [address] PET/CT Tumor Base -Thigh Init MR#: [id number] Acct: [id number] Name: LUKE DOLAN Tommy Rep #: [id number] : 1955 M 69 From: Gilbert Kan PCP: Dr. Camden Back DO Status: REG CLI Study: PET/CT Tumor Base -Thigh Init Date of Exam: Exam# [id number] Ordering Dr: Camden Back DO PROCEDURE: PET/CT [...] PET will be reported separately. Reading Location: [address] CC: Dr. Camden Back DO Workforce Planner: Signed Normal [facility] Positron emission tomography scan reportOrdered By: Gilbert Hagen on 03-11-2025 PT Unspecified body region [facility] Imaging Services [address] [place], [place] [address] PET/CT Tumor Base -Thigh Init MR#: [id number] Acct: [id number] Name: LUKE DOLAN Rep #: [id number] : 1955 M 69 From: Sergio Hagen MD PCP: Dr. Camden Back DO Status: REG CLI Study:PET/CT Tumor Base -Thigh Init Date of E xam: 03/11/25 Exam# [id number] Ordering Dr: Camden Back DO PROCEDURE: PET/CT [...] PET will be reported separately. Reading Location: [id number] CC: Dr. Camden Back, DO ~ Workforce Planner: Signed [facility] CT THORAX SCREENING W/O CONT Rosalina 02-28-2025 [...] 02/28/2025 8:27:08 AM Ordering Provider: CAMDEN BACK [facility] 12-11-2024 [facility] Telephone (AGGENS4) LUKE DOLAN ([id number]) 1955 M Date Time Provider Department 12/11/24 YESENIA BOUDREAUX AGGENS4 During your visit today, we recorded the following information about you: Allergies As of Date: 12/11/2024 (No Known Allergies) Date Reviewed: 09/03/2019 Reviewed by: Loco Chatman (Rn), RN - Fully Assessed Primary Visit Diagnosis:Dysphagia, unspecified type [R13.10] Order(s):SURGICAL REQUEST - ELECTIVE (06/2020) [0952950] Order #: [id number]: 1 Prescriptions as of 12/11/2024 - cephALEXin [...] by TESS GONZALES on 12/11/24 [facility] CNPN Telephone (AGGENS4) LUKE DOLAN ([id number]) 1955 M Date Time Provider Department 12/11/24 [...] Status:Closed by TESS GONZALES on 12/11/24 Normal [facility] Esophagus Single Contraston 12-11-2024 Esophagus Single Contrast [facility] Imaging Services [address] [place] [address] Esophagus Single Contrast MR#: [id number] Acct: [id number] Name: LUKE DOLAN Rep #: [id number] : 1955 69 From: Evans luhter MD PCP: Dr. Camden Back, DO Status: REG CLI Study: Esophagus Single Contrast Date of Exam: Exam# [id number] Ordering Dr: Loco Wilde MD :[id number] STUDY: X-RAY - ESOPHAGUS (BARIUM SWALLOW) WITH [...] Camden Back DO; Dr. Loco Wilde MD Workforce Planner: Signed Normal [facility] 12-02-2024 [facility] Telephone (AGGENS4) LUKE DOLAN ([id number]) 1955 M Date Time Provider Department 12/02/24 [...] by [facility] on 12/02/24 [facility] [place] [facility]20[facility] ([facility] LUKE DOLAN ([id number]) 1955 M Date Time Provider Department 11/29/24 [...] by PAT MARTIN on 11/29/24 [facility] CNCOon 11-12-2024 CNCO Letter Text [facility] CNPNon 11-12-2024 CNPN Telephone (AGGENS4) LUKE DOLAN ([id number]) 1955 M Date Time Provider Department 11/12/24 [...] I sent the patient written information via [facility] about esophageal manometry and the prep [...] type [R13.10] Order(s):SURGICAL REQUEST - ELECTIVE (06/2020) [[id number]] Order #: [id number]: 1 Prescriptions as of 11/12/2024 - cephALEXin [...] Status:Closed by [facility] on 11/12/24 Normal [facility] XR ESOPHOGRAM W/BARIUM TABLE Ton 10-31-2024 [...] 10/31/2024 11:49:46 AM Ordering Provider: CAMDEN Chandra [facility] Final Surgical Pathology Rep toni 10-23-2024 Final Surgical Pathology Report . 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 Smallest fragments may not survive processing. TS-1 Sierra Segovia, Grossing Technical Sales Support Specialist/ Dr. Luke Sellers, Pathologist Performed by Sierra Segovia MICROSCOPIC DESCRIPTION: The microscopic examination is performed, except in the case of Gross Only. Electronically Signed by Pathology Report verified by [facility] THAIS BRAR MD Sign out Date: 10/23/2024 08:35 Performing Lab: [facility], [address] [place] [address] Pathology Dept Disclaimer If ancillary studies were utilized, the following Laboratory Developed Test (LDT) disclaimer will apply: Under CLIA requirements, [facility] Pathology Laboratory is qualified to perform high complexity testing. For all ancillary stains, positive and negative controls stain appropriately. Performance characteristics of immunohistochemical and chromogenic in-situ hybridization tests have been determined by [facility] Pathology Laboratory. These tests are used for clinical purposes, They should not be regarded as investigational or for research. Normal [facility] Cardiology Visit Reporton Cardiology Visit Report [facility] [address] [place], [place] [address] OFFICE VISIT Date of Service: 05/22/24 MR#: [id number] Acct: [id number] Name: LUKE DOLAN Rep #: [id number] : 1955 Provider: Dr. Cecil green MD Age/Sex: 68/M Location: [facility] Status: Signed HPI HPI History of Present Illness Details: This is a 68-year-old white male who presents today for an outpatient cardiovascular follow-up. He has a history of premature CAD, status post anterior UT (2004), status post previous multivessel PCI involving the LAD and LCx systems, hyperlipidemia, and nicotine abuse. 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 Normal [facility] .Auto Diffon 05-14-2024 Basophil, Absolute 0.1 10 3/mcL [facility].2 [facility] Comment on above: Performed By: #### G FR, ANEU, LIPID, CBC, CMP, ADIFF, PSA #### [address] [address] Basophils/100 WBC (Bld) 0.4 % Normal 0.0-2.5 Counts Include [address] [facility] ([place]) Comment on above: Performed By: #### G FR, ANEU, LIPID, CBC, CMP, ADIFF, PSA #### [address] [address] Eosinophil, Absolute 0.1 10 3/mcL Normal 0.0-0.4 [facility] ([place]) Comment on above: Performed By: #### G FR, ANEU, LIPID, CBC, CMP, ADIFF, PSA #### [address] [address] Eosinophils/100 WBC (Bld) 0.8 % Normal 0.0-7.0 Counts Include [facility] ([place]) Comment on above: Performed By: #### G FR, ANEU, LIPID, CBC, CMP, ADIFF, PSA #### [address] [address] Lymphocyte, Absolute 5.6 10 3/mcL High 0.8-3.9 [facility] ([place]) Comment on above: Performed By: #### G FR, ANEU, LIPID, CBC, CMP, ADIFF, PSA #### [address] [address] Lymphocytes/100 WBC (Bld) 35.2 % Normal 10.0-50.0 Counts Include [facility] ([place]) Comment on above: Performed By: #### G FR, ANEU, LIPID, CBC, CMP, ADIFF, PSA #### [address] [address] Monocyte, Absolute 0.9 10 3/mcL Normal 0.2-1.0 [facility] Comment on above: Performed By: #### G FR, ANEU, LIPID, CBC, CMP, ADIFF, PSA #### [address] [address] Monocytes/100 WBC (Bld) 5.3 % Normal 1.7-13.0 Counts Include [facility] ([place]) Comment on above: Performed By: #### G FR, ANEU, LIPID, CBC, CMP, ADIFF, PSA #### [address] [address] Neutrophils/100 WBC (Bld) 58.3 % Normal 37.0-80.0 Counts Include [facility] ([place]) Comment on above: Performed By: #### G FR, ANEU, LIPID, CBC, CMP, ADIFF, PSA #### [address] [address] .GFRon 05-14-2024 GFR 79 ml/min/1.73sqm Normal Counts Include [facility] ([place]) Comment on above: Result Comment: GFR Population [...] ANEU, LIPID, CBC, CMP, ADIFF, PSA #### [address] [address] GFR Non- 65 ml/min/1.73sqm Normal Counts Include [facility] ([place]) Comment on above: Result Comment: GFR Population [...] ANEU, LIPID, CBC, CMP, ADIFF, PSA #### [address] [address] .NEUABSon 05-14-2024 Neutrophil, Absolute 9.3 10 3/mcL High 2.9-6.2 [facility] ([place]) Comment on above: Performed By: #### G FR, ANEU, LIPID, CBC, CMP, ADIFF, PSA #### [address] [address] CBCon 05-14-2024 Erythrocyte distribution width (RBC) [Ratio] 14.7 % High 11.5-14.5 Counts Include [facility] ([place]) Comment on above: Performed By: #### G FR, ANEU, LIPID, CBC, CMP, ADIFF, PSA #### [address] [address] Hematocrit (Bld) [Volume fraction] 45.9 % Normal 42.0-52.0 Counts Include [facility] ([place] Comment on above: Performed By: #### G FR, ANEU, LIPID, CBC, CMP, ADIFF, PSA #### [address] [address] Hgb 15.3 G/dL Normal 14.0-18.0 Counts Include [facility] ([place]) Comment on above: Performed By: #### G FR, ANEU, LIPID, CBC, CMP, ADIFF, PSA #### [address] [address] MCH (RBC) [Entitic mass] 28.3 pg Normal 27.0-31.2 Counts Include [facility] ([place]) Comment on above: Performed By: #### G FR, ANEU, LIPID, CBC, CMP, ADIFF, PSA #### [address] [address] MCHC 33.3 G/dL Normal 31.8-35.4 Counts Include [facility] ([place]) Comment on above: Performed By: #### G FR, ANEU, LIPID, CBC, CMP, ADIFF, PSA #### [address] [address] MCV (RBC) [Entitic vol] 85.1 fL Normal 80.0-94.0 Counts Include [facility] ([place]) Comment on above: Performed By: #### G FR, ANEU, LIPID, CBC, CMP, ADIFF, PSA #### [address] [address] Platelet 307 10 3/mcL Normal 130-400 Counts Include [facility] ([place]) Comment on above: Performed By: #### G FR, ANEU, LIPID, CBC, CMP, ADIFF, PSA #### [address] [address] Platelet mean volume (Bld) [Entitic vol] 7.7 fL Normal 7.4-10.4 Counts Include [facility] ([place]) Comment on above: Performed By: #### G FR, ANEU, LIPID, CBC, CMP, ADIFF, PSA #### [address] [address] RBC 5.39 10 6/mcL Normal 4.04-6.13 Counts Include [facility] ([place]) Comment on above: Performed By: #### G FR, ANEU, LIPID, CBC, CMP, ADIFF, PSA #### [address] [address] WBC 16.0 10 3/mcL High 4.6-10.8 Counts Include [facility] ([place]) Comment on above: Performed By: #### G FR, ANEU, LIPID, CBC, CMP, ADIFF, PSA #### [address] [address] CMPon 05-14-2024 Albumin Level 3.5 G/dL Normal 3.4-4.8 Counts Include [facility] ([place] Comment on above: Performed By: #### G FR, ANEU, LIPID, CBC, CMP, ADIFF, PSA #### [address] [address] Albumin/Globulin [Mass ratio] 0.9 {ratio} Low 1.1-2.5 Counts Include [facility] ([place] Comment on above: Performed By: #### G FR, ANEU, LIPID, CBC, CMP, ADIFF, PSA #### [address] [address] ALP [Catalytic activity/Vol] 51 U/L Normal 40-135 Counts Include [facility] ([place] Comment on above: Performed By: #### G FR, ANEU, LIPID, CBC, CMP, ADIFF, PSA #### [address] [address] ALT [Catalytic activity/Vol] 18 U/L Normal 16-63 Counts Include [facility] ([place] Comment on above: Performed By: #### G FR, ANEU, LIPID, CBC, CMP, ADIFF, PSA #### [address] [address] AST [Catalytic activity/Vol] 13 U/L Normal 10-40 Counts Include [facility] ([place] Comment on above: Performed By: #### G FR, ANEU, LIPID, CBC, CMP, ADIFF, PSA #### [address] [address] Bili Total 0.4 mg/dL Normal 0.2-1.0 Counts Include [facility] ([place]) Comment on above: Result Comment: Use of this assay is not recommended for patients undergoing treatment with eltrombopag due to the potential for falsely elevated results. Performed By: #### G FR, ANEU, LIPID, CBC, CMP, ADIFF, PSA #### [address] [address] BUN/Creatinine Ratio 13 ratio Normal 7-27 [facility] Comment on above: Performed By: #### G FR, ANEU, LIPID, CBC, CMP, ADIFF, PSA #### [address] [address] Calcium [Mass/Vol] 9.4 mg/dL Normal 8.4-10.2 [facility] ([place]) Comment on above: Performed By: #### G FR, ANEU, LIPID, CBC, CMP, ADIFF, PSA #### [address] [address] Chloride [Moles/Vol] 99 mmol/L Normal 98-107 [facility] Comment on above: Performed By: #### G FR, ANEU, LIPID, CBC, CMP, ADIFF, PSA #### [address] [address] CO2 [Moles/Vol] 25 mmol/L Normal 23-31 Counts Include [facility] ([place]) Comment on above: Performed By: #### G FR, ANEU, LIPID, CBC, CMP, ADIFF, PSA #### [address] [address] Creatinine [Mass/Vol] 1.12 mg/dL Normal 0.70-1.30 Counts Include [facility] ([place] Comment on above: Performed By: #### G FR, ANEU, LIPID, CBC, CMP, ADIFF, PSA #### [address] [address] Electrolyte Balance 10.0 mEq/L Normal 4.0-15.0 [facility] ([place]) Comment on above: Performed By: #### G FR, ANEU, LIPID, CBC, CMP, ADIFF, PSA #### [address] [address] Globulin 3.7 G/dL Normal Counts Include [facility] ([place] Comment on above: Performed By: #### G FR, ANEU, LIPID, CBC, CMP, ADIFF, PSA #### [address] [address] Glucose [Mass/Vol] 216 mg/dL High 80-115 [facility] ([place] Comment on above: Performed By: #### G FR, ANEU, LIPID, CBC, CMP, ADIFF, PSA #### [address] [address] Potassium [Moles/Vol] 4.0 mmol/L Normal 3.5-5.1 Counts Include [facility] ([place] Comment on above: Performed By: #### G FR, ANEU, LIPID, CBC, CMP, ADIFF, PSA #### [id number] [place], [place] [address] Sodium [Moles/Vol] 134 mmol/L Low 136-145 [facility] ([place]) Comment on above: Performed By: #### G FR, ANEU, LIPID, CBC, CMP, ADIFF, PSA #### [address] [address] Total Protein 7.2 G/dL Normal 6.4-8.2 Counts Include [address] [facility] ([place] Comment on above: Performed By: #### G FR, ANEU, LIPID, CBC, CMP, ADIFF, PSA #### [address] [address] Urea nitrogen [Mass/Vol] 15 mg/dL Normal 7-18 Counts Include [address] [facility] ([place] Comment on above: Performed By: #### G FR, ANEU, LIPID, CBC, CMP, ADIFF, PSA #### [address] [address] LIPIDon 05-14-2024 Cholesterol [Mass/Vol] 195 mg/dL Normal 0-200 Counts Include [address] [facility] ([place] Comment on above: Result Comment: Chol esterol Reference Interval: Less than 200 Desirable 200-239 Borderline high risk 240 and above High risk Performed By: #### G FR, ANEU, LIPID, CBC, CMP, ADIFF, PSA #### [address] [address] Cholesterol in HDL [Mass/Vol] 35 mg/dL Low 40-60 Counts Include [address] [facility] ([place] Comment on above: Performed By: #### G FR, ANEU, LIPID, CBC, CMP, ADIFF, PSA #### [address] [address] Cholesterol in LDL [Mass/Vol] 103 mg/dL Normal 0-130 Counts Include [address] [facility] ([place] Comment on above: Performed By: #### G FR, ANEU, LIPID, CBC, CMP, ADIFF, PSA #### [id number] [place], [place] [address] Triglyceride [Mass/Vol] 284 mg/dL High 0-150 Counts Include [address] [facility] ([place] Comment on above: Result Comment: Trig lyceride Reference Interval: Less than 150 Normal 150-199 Borderline high risk 200-499 High risk 500 or higher Very high risk Performed By: #### G FR, ANEU, LIPID, CBC, CMP, ADIFF, PSA #### [id number] [place], [place] [address] PSAon 05-14-2024 Prostate Specific Antigen 0.90 ng/mL Normal 0.00-4.00 Counts Include [address] [facility] [facility] ([place] Comment on above: Performed By: #### G FR, ANEU, LIPID, CBC, CMP, ADIFF, PSA #### [id number] [place], [place] [address] CT THORAX SCREENING W/O CONT RASTon 02-29-2024 [...] 02/29/2024 9:41:38 AM Ordering Provider: CAMDEN BACK [facility] ([place]) Glucose Glucometer (BldC) [M ass/Vol]Ordered By: Chary Fontaine on 08-28-2023 Glucose [Mass/Vol] 119 mg/dL 74-106 [facility] Comment on above: MANAGEMENT OF PATIEN T CARE PER NURSING PROTOCOL Absolute lymphocyte countOrd ered By: Aaron Jacques on 08-21-2023 Lymphocytes Auto (Unsp spec) [#/Vol] 4.97 10*3/uL 0.83-4.51 [facility] Basophil percentageOrdered B y: Aaron Jacques on 08-21-2023 Basophils/100 WBC (Bld) 0.5 % 0-1 [facility] Chloride [Moles/Vol] 108 mmol/L 98-107 [facility] Eosinophils/100 WBC (Bld) 2.3 % 0-5 [facility] Glucose [Mass/Vol] 197 mg/dL 74-106 [facility] Comment on above: Fasting Glucose resu lt greater than or equal to 126 mg/dL suggests DIABETES MELLITUS per A.D.A. criteria. Neutrophils (Bld) [#/Vol] 6.4 10*3/uL 2.0-7.7 [facility] Neutrophils/100 WBC (Bld) 50.3 % 47-70 [facility] Potassium [Moles/Vol] 3.6 mmol/L 3.5-5.1 [facility] Sodium [Moles/Vol] 139 mmol/L 136-145 [facility] WBC (Bld) [#/Vol] 12.8 10*3/uL 4.4-11.0 [facility] Blood erythrocytes count (nu mber/volume)Ordered By: Aaron aJcques on 08-21-2023 RBC (Bld) [#/Vol] 5.15 10*6/uL 4.6-6.2 [facility] Blood hemoglobin measurement (mass/volume)Ordered By: Aaron Jacques on 08-21-2023 Hemoglobin (Bld) [Mass/Vol] 14.5 g/dL 13.0-16.5 [facility] Blood lymphocytes/100 leukoc ytesOrdered By: Aaron Jacques on 08-21-2023 Lymphocytes/100 WBC (Bld) 38.8 % 19-41 [facility] Blood monocytes/100 leukocyt esOrdered By: Aaron Jacques on 08-21-2023 Monocytes/100 WBC (Bld) 7.9 % 0-10 [facility] Blood platelet mean volumeOr dered By: Aaron Jacques on 08-21-2023 Platelet mean volume (Bld) [Entitic vol] 9.2 fL 6.2-12.0 [facility] Determination of erythrocyte mean corpuscular volume (MCV)Ordered By: Aaron Jacques on 08-21-2023 MCV (RBC) [Entitic vol] 86.6 fL 80-94 [facility] Hematocrit Auto (Bld) [Volum e fraction]Ordered By: Aaron Jacques on 08-21-2023 Hematocrit (Bld) [Volume fraction] 44.6 % 40-54 [facility] Laboratory - Chemistry and C hemistry - challengeOrdered By: Aaron Jacques on 08-21-2023 CO2 [Moles/Vol] 25.0 mmol/L 21.0-32.0 [facility] Urea nitrogen/Creatinine [Mass ratio] 10.3 mg/mg 10-20 [facility] Laboratory - Hematology and Cell countsOrdered By: Aaron Jacques on 08-21-2023 Erythrocyte distribution width (RBC) [Entitic vol] 46.4 fL 35.1-43.9 [facility] Erythrocyte distribution width (RBC) [Ratio] 14.5 % 11.6-14.6 [facility] Immature granulocytes/100 WBC (Bld) 0.200 % 0.0-0.9 [facility] Comment on above: IG% - Immature Granu locytes (promyelocytes, myelocytes and metamyelocytes) > 1% indicates that a LEFT SHIFT is Present. MCH (RBC) [Entitic mass] 28.2 pg 27.0-32.0 [facility] Nucleated RBC/100 WBC (Bld) [Ratio] 0 % 0-5 [facility] MCHC Auto (RBC) [Mass/Vol]Or dered By: Aaron Jacques on 08-21-2023 MCHC (RBC) [Mass/Vol] 32.5 g/dL 32-36 [facility] No Panel InformationOrdered By: Aaron Jacques on 08-21-2023 Estimated GFR (MDRD) Amer 80 mL/min >60 [facility] Comment on above: GFR Calc Estimated GFR (MDRD) Non-Af Amer 66 mL/min >60 [facility] Comment on above: Non- GFR Calc Platelets bldOrdered By: Isabell Jacques on 08-21-2023 Platelets (Bld) [#/Vol] 334 10*3/uL 150-450 [facility] Serum or plasma calcium ricky urement (mass/volume)Ordered By: Aaron Jacques on 08-21-2023 Calcium [Mass/Vol] 9.2 mg/dL 8.5-10.1 [facility] Serum or plasma creatinine m easurement (mass/volume)Ordered By: Aaron Jacques on 08-21-2023 Creatinine [Mass/Vol] 1.17 mg/dL 0.70-1.30 [facility] Comment on above: The validity of the calculated GFR & GFRAA in patients over 70 years has not been determined. Clinical correlation is essential. Serum or plasma urea nitroge n measurement (mass/volume)Ordered By: Aaron Jacques on 08-21-2023 Urea nitrogen [Mass/Vol] 12 mg/dL 7-18 [facility] Thin prep Papanicolaou smear with manual screeningOrdered By: Aaron Jacques on 08-21-2023 Thin prep Papanicolaou smear with manual screening 6 5-15 [facility] Whole blood hemoglobin A1c/t otal hemoglobin ratio (mass fraction)Ordered By: Aaron Jacques on 08-21-2023 HbA1c (Bld) [Mass fraction] 6.2 % 3.8-5.6 [facility] Comment on above: Normal < 5.7 % [...] ED NOTEon 09-03-2019 ED NOTE HNO ID: [id number] Author: Ambika Ferrell RN Service: Emergency Medicine [...] to improve your ED visit? No SIGNATURE: AMBIKA FERRELL RN PATIENT NAME: Luke Dolan DATE: September 04, 2019 TIME: 2:00 PM Normal [facility] ED NOTE HNO ID: [id number] Author: Edith Gorman RN Service: ? Author Type: Registered Nurse Type: ED Notes Filed: 09/03/2019 12:42 PM Note Text: Pt to room from radiology Normal [facility] ED NOTE HNO ID: [id number] Author: dEith Gorman RN Service: ? Author Type: Registered Nurse Type: ED Notes Filed: 09/03/2019 12:30 PM Note Text: Pt ambulatory to radiology Normal [facility] ED NOTE HNO ID: [id number] Author: Edith Gorman RN Service: ? Author Type: Registered Nurse Type: ED Notes Filed: 09/03/2019 12:20 PM Note Text: Patient informed: the name of medication, why we are giving it, possible side effects, what they may expect to feel, and was offered a chance to ask questions, prior to the administration of Keflex, Motrin Normal [facility] ED NOTE HNO ID: [id number] Author: Loco BruceRn) SHARON Chatman Service: Emergency Medicine Author Type: Registered Nurse Type: ED Notes Filed: 09/03/2019 11:57 AM Note Text: Left hand and wrist pain for 3 days denies any injury Normal [facility] ED PROV NOTEon 09-03-2019 ED PROV NOTE HNO ID: [id number] Author: Dennis Canales MD Service: Emergency Medicine [...] 1248 Dennis Canales MD 09/03/19 1315 Normal [facility] Office Visit: [facility] 04-13-20 17 Documentation of current medications (procedure) Done Invalid Interpretation Code [employer] Work Phone: Smoking cessation education (procedure) yes Invalid Interpretation Code [employer] Work Phone: [phone] Tobacco use [facility] Current every day smoker Invali d Interpretation Code [employer] Work Phone: Office Visiton 10-12-2016 Dietary management education, guidance, and counseling (procedure) yes Invalid Interpretation Code [employer] Work Phone: Lab Reporton 09-19-2016 Chloride 106 mmol/L Invalid Interpretation Code [employer] Work Phone: CO2 25.8 mmol/L Invalid Interpretation Code [employer] Work Phone: [phone] Creatinine 1.10 mg/dL Invalid Interpretation Code [employer] Work Phone: [phone] Urea nitrogen 13 mg/dL Invalid Interpretation Code [facility] Work Phone: [phone] Potassium 4.4 mmol/L Invalid Interpretation Code [facility] Work Phone: [phone] Sodium 141 mmol/L Invalid Interpretation Code [facility] [employer] Work Phone: [phone] Cholesterol 192 mg/dL Invalid Interpretation Code [facility] [employer] Work Phone: [phone] HDL Cholesterol 33 mg/dL Invalid Interpretation Code [facility] [employer] Work Phone: [phone] LDL Cholesterol 117 mg/dL Invalid Interpretation Code [facility] Work Phone: [phone] Triglyceride 210 mg/dL Invalid Interpretation Code [facility] Work Phone: [phone] Replaced Document: Scotty JENNINGS Observationson 04-05-2016 electrocardiogram interpretation Sinus Rhythm WITHIN NORMAL LIMITS Invalid Interpretation Code [facility] [employer] Work Phone: [phone] GE use only - for [employer] import when terms are not otherwise specified 379 ms Invalid Interpretation Code [facility] Work Phone: [phone] P wave axis, electrocardiogram 47 deg Invalid Interpretation Code [facility] Work Phone: [phone] WV interval, electrocardiogram 162 ms Invalid Interpretation Code [facility] Work Phone: [phone] Pulse (Heart Rate) 77 /min Invalid Interpretation Code [facility] Work Phone: [phone] QRS axis, electrocardiogram 21 deg Invalid Interpretation Code [facility] Work Phone: [phone] QRS duration, electrocardiogram 96 ms Invalid Interpretation Code [facility] Work Phone: [phone] QT interval, electrocardiogram new path ms Invalid Interpretation Code [facility] Work Phone: [phone] T wave axis, electrocardiogram 42 deg Invalid Interpretation Code [facility] Work Phone: [phone] Clinical Lists Update: Prel[employer] 03-31-2016 Left ventricular Ejection fraction 60 % Invalid Interpretation Code [facility] Work Phone: [phone] Clinical Lists Update: Prelo custom stock [employer] 03-04-2016 Anion gap 11.1 mmol/L Invalid Interpretation Code [facility] Work Phone: [phone] BUN/Creatinine Ratio 11.9 mg/mg Invalid Interpretation Code [facility] Work Phone: [phone] Calcium 9.9 mg/dL Invalid Interpretation Code [facility] Work Phone: [phone] Glucose 99 mg/dL Invalid Interpretation Code [facility] Work Phone: [phone] HbA1c 6.2 % Invalid Interpretation Code [facility] Work Phone: [phone] Office Visit: [facility] 03-17-20 15 cardiac risk group C Invalid Interpretation Code [facility] Work Phone: [phone] General cardiovascular disease 10Y risk [#] [place].D'Agostin o N/A Invalid Interpretation Code [facility] Work Phone: [phone] Tobacco smoking status NHIS Former Invalid Interpretation Code [facility] Work Phone: [phone] Clinical Lists Update: Prel[employer] custom stock [employer] 09-23-2014 Cholesterol to HDL Ratio 5.9 {ratio} Invalid Interpretation Code [facility] Work Phone: [phone] Lab Report: BMPon 05-27-2014 eGFR (non-black) 66 mL/min/{1.73_m2} Normal >60 [facility] Work Phone: [phone] eGFR (non-black) 80 mL/min/{1.73_m2} Normal >60 [facility] Work Phone: [phone] Lab Report: CBCDon 4 Absolute Neutrophil count 6.6 X10 3/UL Normal 2.0-7.7 [facility] Work Phone: [phone] Basophils/100 leukocytes 0.3 % Normal 0-1 [facility] Work Phone: [phone] Eosinophils/100 leukocytes 2.0 % Normal 0-5 [facility] Work Phone: [phone] Erythrocytes (RBC) 5.34 10*6/uL Normal 4.6-6.[address] [facility] Work Phone: [phone] Hematocrit (HCT) 44.3 % Normal 40-54 [facility] Work Phone: [phone] Hemoglobin (HGB) 14.9 g/dL Normal 13.0-16.5 [facility] Work Phone: [phone] Lymphocytes/100 leukocytes 36.7 % Normal 19-41 [facility] Work Phone: [phone] MCH 27.9 pg Normal 27.0-32.0 [facility] Work Phone: [phone] MCHC 33.6 G/GL Normal 32-36 [facility] Work Phone: [phone] MCV 83.0 fL Normal 80-94 [facility] Work Phone: [phone] Monocytes/100 leukocytes 9.0 % Normal 0-10 [facility] Work Phone: [phone] Neutrophils/100 leukocytes 51.8 % Normal 47-70 [facility] Work Phone: [phone] Platelets 327 10*3/mm3 Normal 150-450 [facility] Work Phone: [phone] PMV by Sumeetker 9.5 fL Normal 6.2-12.0 [facility] Work Phone: [phone] WBC (Leukocytes) 12.8 10*3/uL High 4.4-11.0 [facility] Work Phone: [phone] Lab Report: BIDon 03-18-2013 Bilirubin (direct) 0.06 mg/dL Normal 0.00-0.30 [facility] Work Phone: [phone] Lab Report: CMPon 03-18-2013 Alanine aminotransferase (ALT) 19 U/L Normal 12-78 [facility] Work Phone: [phone] Albumin 3.5 g/dL Normal 3.4-5.0 [facility] Work Phone: [phone] Alkaline phosphatase (ALP) 55 U/L Normal 50-136 [facility] Work Phone: [phone] Aspartate aminotransferase (AST) 15 U/L Normal 15-37 [facility] Work Phone: [phone] Bilirubin (total) 0.30 mg/dL Normal 0.00-1.00 [facility] Work Phone: [phone] Lab Report: LIPIDon 03-18-20 13 very low density lipoproteins 57 mg/dL High 5-40 [facility] Work Phone: Replaced Document: Scotty Vincent 03-11-2013 Pulse (Heart Rate) 379 ms Invalid Interpretation Code [employer] Work Phone: Lab Report: TROPon 2 Troponin I ng/mL Normal <0.06 [employer] [facility] Work Phone: Vital Signs Date Time Vital Sign Value Performing Clinician Facility 10-21-2024 09:56-0500 Diastolic Blood Pressure Non-Invasive 72 mm[Hg] DR LOCO WILDE MD [facility] 10-21-2024 09:56-0500 Heart rate 77 /min DR LOCO WILDE MD [facility] 10-21-2024 09:56-0500 Systolic Blood Pressure Non-Invasive 122 mm[Hg] DR LOCO WILDE MD [facility] 10-21-2024 09:51-0500 Diastolic Blood Pressure Non-Invasive 79 mm[Hg] DR LOCO WILDE MD [facility] 10-21-2024 09:51-0500 Heart rate 76 /min DR LOCO WILDE MD [facility] 10-21-2024 09:51-0500 Systolic Blood Pressure Non-Invasive 125 mm[Hg] DR LOCO WILDE MD [facility] 10-21-2024 09:47-0500 Diastolic Blood Pressure Non-Invasive 74 mm[Hg] DR LOCO WILDE MD [facility] 10-21-2024 09:47-0500 Heart rate 73 /min DR LOCO WILDE MD [facility] 10-21-2024 09:47-0500 Systolic Blood Pressure Non-Invasive 103 mm[Hg] DR LOCO WILDE MD [facility] 10-21-2024 09:38-0500 Body temperature 97.52 [degF] DR LOCO WILDE MD [facility] 10-21-2024 09:35-0500 Respiratory Rate - Anes 0 br/min DR LOCO WILDE MD [facility] 10-21-2024 09:30-0500 Respiratory Rate - Anes 0 br/min DR LOCO WILDE MD [facility] 10-21-2024 07:54-0500 Body height 167.[address] LOCO WILDE MD [facility] 10-21-2024 07:54-0500 Body temperature 97.16 [degF] DR LOCO WILDE MD [facility] 10-21-2024 07:54-0500 Body weight 76.[address] LOCO WILDE MD [facility] 10-21-2024 07:54-0500 Heart rate 74 /min DR LOCO WILDE MD [facility] 10-21-2024 07:54-0500 Respiratory rate 13 /min DR LOCO WILDE MD [facility] 10-21-2024 07:49-0500 Body height 167.[address] LOCO WILDE MD [facility] 08-28-2023 14:50-0400 Body temperature 97.9 [degF] Dr. Camden Back Work Phone: [facility] 08-28-2023 14:50-0400 Diastolic blood pressure 64 mm[Hg] Dr. Camden Back Work Phone: [facility] 08-28-2023 14:50-0400 Heart rate 77 /min Dr. Camden Back Work Phone: [facility] 08-28-2023 14:50-0400 Respiratory rate 14 /min Dr. Camden Back Work Phone: [facility] 08-28-2023 14:50-0400 SaO2% (BldA) [Mass fraction] 97 % Dr. Camden Back Work Phone: [facility] 08-28-2023 14:50-0400 Systolic blood pressure 130 mm[Hg] Dr. Camden Back Work Phone: [facility] 08-28-2023 11:46-0400 Body height 170.[address] Camden Back Work Phone: [facility] 08-28-2023 11:46-0400 Body mass index (BMI) [Ratio] 25 kg/m2 Dr. Camden Back Work Phone: [facility] 08-28-2023 11:46-0400 Body weight 72.[address] Camden Back Work Phone: [facility] 08-07-2023 14:09-0400 Body mass index (BMI) [Ratio] 26.5 kg/m2 Dr. Camden Back Work Phone: [facility] 08-07-2023 14:09-0400 Body weight 74.[address] Camden Back Work Phone: [facility] 08-07-2023 14:09-0400 Diastolic blood pressure 91 mm[Hg] Dr. Camden Back Work Phone: [facility] 08-07-2023 14:09-0400 Heart rate 67 /min Dr. Camden Back Work Phone: [facility] 08-07-2023 14:09-0400 Respiratory rate 17 /min Dr. Camden Back Work Phone: [facility] 08-07-2023 14:09-0400 SaO2% (BldA) [Mass fraction] 97 % Dr. Camden Back Work Phone: [facility] 08-07-2023 14:09-0400 Systolic blood pressure 163 mm[Hg] Dr. Camden Back Work Phone: [facility] 06-09-2023 09:42-0400 Body height 167.[address] Camden Back Work Phone: [facility] 06-09-2023 09:42-0400 Body mass index (BMI) [Ratio] 26.8 kg/m2 Dr. Camden Back Work Phone: [facility] 06-09-2023 09:42-0400 Body temperature 98 [degF] Dr. Camden Back Work Phone: [facility] 06-09-2023 09:42-0400 Body weight 75.[address] Camden Back Work Phone: [facility] 06-09-2023 09:42-0400 Diastolic blood pressure 78 mm[Hg] Dr. Camden Back Work Phone: [facility] 06-09-2023 09:42-0400 Heart rate 71 /min Dr. Camden Back Work Phone: [facility] 06-09-2023 09:42-0400 Respiratory rate 17 /min Dr. Camden Back Work Phone: [facility] 06-09-2023 09:42-0400 Systolic blood pressure 134 mm[Hg] Dr. Camden Back Work Phone: [facility] 04-28-2023 12:59-0400 Body mass index (BMI) [Ratio] 26.3 kg/m2 Dr. Camden Back Work Phone: [facility] 04-28-2023 12:59-0400 Body weight 73.[address] Camden Back Work Phone: [facility] 04-28-2023 12:59-0400 Diastolic blood pressure 67 mm[Hg] Dr. Camden Back Work Phone: [facility] 04-28-2023 12:59-0400 Heart rate 86 /min Dr. Camden Back Work Phone: [facility] 04-28-2023 12:59-0400 Respiratory rate 18 /min Dr. Camden Back Work Phone: [facility] 04-28-2023 12:59-0400 SaO2% (BldA) [Mass fraction] 95 % Dr. Camden Back Work Phone: [facility] 04-28-2023 12:59-0400 Systolic blood pressure 106 mm[Hg] Dr. Camden Back Work Phone: [facility] 04-13-2017 12:59-0400 BMI (Body Mass Index) 26.5 [...] 02-13-2012 14:29-0400 Height 170.18 cm Augusta Evans [facility] Work Phone: 02-13-2012 14:29-0400 Pulse Oximetry 97 % Augusta Evans [facility] Work Phone: Encounters Encounter Date Encounter Type Care Provider Facility Start: 04-28-2025 End: 04-28-2025 Telephone encounter Yesenia Boudreaux MD Work Phone: [facility] Start: 04-23-2025 End: 04-23-2025 Telephone encounter Yesenia Boudreaux MD Work Phone: [facility] Comment on above: Future Appointment ( Attempt to reschedule esophageal manometry ) Start: 03-17-2025 End: 03-17-2025 Telephone encounter Yesenia Boudreaux MD Work Phone: [facility] Comment on above: Future Appointment ( Reschedule manometry/) Start: 03-11-2025 End: 03-11-[address] Camden Back DO Work Phone: [facility] Work Phone: Start: 03-11-2025 End: 03-11-[address] Camden Back DO -[facility] Start: 03-11-2025 End: 03-11-2025 ambulatory Camden Back Facility:[facility] Start: 02-27-2025 End: 02-27-2025 ambulatory CAMDEN BACK DO Facility:[facility] Start: 12-11-2024 End: 12-11-2024 Telephone encounter Yesenia Boudreaux MD Work Phone: [facility] Start: 12-11-2024 End: 12-11-[address] Loco Wilde MD -Radiology, [facility] [facility] Work Phone: Start: 12-11-2024 End: 12-11-2024 ambulatory Camden Back Facility:[facility] Start: 12-02-2024 End: 12-02-2024 Telephone encounter Yesenia Boudreaux MD Work Phone: [facility] Comment on above: Future Appointment ( Plavix instructions) Start: 11-29-2024 End: 11-29-2024 Telephone encounter Yesenia Boudreaux MD Work Phone: [facility] Comment on above: clearance/medication recommendation Start: 11-12-2024 End: 11-12-2024 Telephone encounter Yesenia Boudreaux MD Work Phone: [facility] Comment on above: Future Appointment ( Esophageal manometry/) Start: 10-31-2024 End: 10-31-2024 ambulatory CAMDEN GUERREROSAKimberly GAVIRIA Facility:[facility] Start: 10-31-2024 End: 10-31-2024 Patient encounter procedure CAMDEN BACK DO [facility] Start: 10-21-2024 End: 10-21-[address] LOCO WILDE MD Facility:[facility] Start: 10-21-2024 End: 10-21-[address] LOCO WILDE MD [facility] Start: 05-22-2024 End: 05-22-2024 ambulatory Cecil Sterling Facility:[facility] Start: 05-14-2024 End: 05-14-2024 ambulatory CAMDEN BACK DO Facility:[facility] Start: 02-27-2024 End: 02-27-2024 ambulatory CAMDEN BACK DO Facility:[facility] Start: 02-27-2024 End: 02-27-2024 Patient encounter procedure CAMDEN BACK DO [facility] Start: 08-28-2023 Non-patient / Non-visit Dr. Litzy Back Work Phone: [facility] Start: 08-28-2023 End: 08-28-2023 Admission to same day surgery center Dr. Camden Back Work Phone: [facility] Start: 08-28-2023 End: 08-28-[address] Camden Back Work Phone: [facility] Work Phone: Start: 08-07-2023 End: 08-07-[address] Camden Back Work Phone: [facility] Work Phone: Start: 06-30-2023 Non-patient / Non-visit Dr. Litzy Back Work Phone: [facility] Start: 06-30-2023 End: 06-30-[address] Camden Back Work Phone: [facility] Work Phone: Start: 06-30-2023 End: 06-30-[address] Camden Back Work Phone: [facility] Work Phone: Start: 06-13-2023 End: 06-13-[address] Camden Back Work Phone: [facility] Work Phone: Start: 06-13-2023 End: 06-13-[address] Camden Back Work Phone: [facility] Work Phone: Start: 06-09-2023 End: 06-09-[address] Camden Back Work Phone: [facility] Work Phone: Start: 04-28-2023 End: 04-28-[address] Camden Back Work Phone: [facility] Work Phone: Start: 11-08-2022 End: 11-08-2022 Patient encounter procedure CAMDEN BACK DO [facility] Start: 11-22-2021 End: 11-22-2021 Patient [...] ins j io lens prosth w/ecp CAMDEN ABCK DO Comment on above: right eye-nahomy ey [...] Start: 08-27-2012 End: 03-25-2013 Lipid panel [AGGREGATE] Giles Peters MD Start: 02-23-2012 End: 02-27-2013 Echocardiography [...] RSV Vaccine (1 - 1-dose 75+ series) [facility] Start: 07-28-2025 Influenza vaccination Influenza Vaccine (Season Ended) [facility] Start: 02-28-2025 Subsequent hospital visit by physician 02/28/2025 Hospital Encounter [facility] [address] [place] [address] Yes[facility]oudreaux MD [facility] [address] [address] [place] [address] Dysphagia, unspecified type [R13.10] [facility] Comment on above: Dysphagia, unspecified type [R13.10] Start: 12-12-2024 End: 12-12-2024 Admission to same day surgery center 12/12/2024 10:00 AM EST - 12/12/2024 11:00 AM EST Surgery [facility] [address] [place] [address] Yesenia Boudreaux MD [facility] [address] [place] [address] ESOPHAGEAL MANOMETRY [facility] Comment on above: ESOPHAGEAL MANOMETRY Start: 12-12-2024 End: 12-12-2024 Esophageal motility study w/interp&rpt ESOPHAGEAL MANOMETRY Dysphagia, unspecified type 12/12/2024 10:00 AM EST [facility] Start: 12-12-2024 Subsequent hospital visit by physician 12/12/2024 10:00 AM EST Hospital Encounter [facility] [address] [place] [address] Yesenia Boudreaux MD [address] [address] Dysphagia, unspecified type [R13.10] [facility] SADLER Comment on above: Dysphagia, unspecified type [R13.10] Start: 11-27-2024 Advance Directive Discussion Advance Directive Discussion [facility] Start: 07-28-2024 Covid-19 Vaccine () Covid-19 Vaccine () [facility] Start: 07-28-2024 Influenza vaccination Influenza Vaccine (#1) [facility] Start: 11-27-2023 Advance Directive Discussion Advance Directive Discussion [facility] Start: 08-28-2023 Patient discharge [facility] Start: 11-29-2017 End: 11-29-2017 Appointment Appointment [facility] Work Phone: Start: 04-13-2017 End: 04-13-2017 Follow Up Appt 6 months Follow Up Appt 6 months [facility] Work Phone: Start: 04-13-2017 End: 04-13-2017 PFM PF [facility] Work Phone: Start: 10-12-2016 End: 04-07-2017 Follow Up Appt 6 months Follow Up Appt 6 months [facility] Work Phone: Start: 10-12-2016 End: 04-07-2017 Follow Up Appt Other Follow Up Appt Other [facility] Work Phone: Start: 10-12-2016 End: 04-07-2017 MMM MMM [facility] Work Phone: Start: 04-05-2016 End: 04-05-2016 Follow Up Appt 6 months Follow Up Appt 6 months [facility] Work Phone: Start: 04-05-2016 End: 10-18-2016 Follow Up Appt Other Follow Up Appt Other [facility] Work Phone: Start: 04-05-2016 End: 04-05-2016 PFM PFM [facility] Work Phone: Start: 10-05-2015 End: 10-05-2015 Follow Up Appt 6 months Follow Up Appt 6 months [facility] Work Phone: Start: 10-05-2015 End: 10-18-2016 Follow Up Appt Other Follow Up Appt Other [facility] Work Phone: Start: 10-05-2015 End: 10-05-2015 MMM MMM [facility] Work Phone: Start: 09-17-2015 End: 10-18-2016 *Hepatic Function Panel *Hepatic Function Panel [facility] Work Phone: Start: 09-17-2015 End: 10-18-2016 Lipid panel [AGGREGATE] *Lipid Profile CC PCP [facility] Work Phone: Start: 03-17-2015 End: 03-17-2015 Electrocardiogram, complete EKG (In office) [facility] Work Phone: Start: 03-17-2015 End: 03-17-2015 Follow Up Appt 6 months Follow Up Appt 6 months [facility] Work Phone: Start: 03-17-2015 End: 03-17-2015 Follow Up Appt Other Follow Up Appt Other [facility] Work Phone: Start: 03-17-2015 End: 03-17-2015 PFM PFM [facility] Work Phone: Start: 09-15-2014 End: 03-29-2016 *Hepatic Function Panel *Hepatic Function Panel [facility] Work Phone: Start: 09-15-2014 End: 09-15-2014 Follow Up Appt 6 months Follow Up Appt 6 months [facility] Work Phone: Start: 09-15-2014 End: 03-04-2015 Follow Up Appt Other Follow Up Appt Other [facility] Work Phone: Start: 09-15-2014 End: 03-18-2015 Lipid panel [AGGREGATE] *Lipid Profile CC PCP [facility] Work Phone: Start: 09-15-2014 End: [...] 6 months Follow Up Appt 6 months [facility] Work Phone: Start: 09-11-2013 End: 03-17-2014 Lipid panel [AGGREGATE] *Lipid Profile CC PCP [facility] Work Phone: Start: 09-11-2013 End: 09-11-2013 MMM MMM [facility] Work Phone: Start: 05-27-2013 End: 02-24-2014 *Hepatic Function Panel *Hepatic Function Panel [facility] Work Phone: Start: 05-27-2013 End: 02-24-2014 Lipid panel [AGGREGATE] *Lipid Profile [facility] Work Phone: Start: 03-11-2013 End: 03-25-2013 *Hepatic Function Panel *Hepatic Function Panel [facility] Work Phone: Start: 03-11-2013 End: 02-24-2014 Follow Up Appt 6 months Follow Up Appt 6 months [facility] Work Phone: Start: 03-11-2013 End: 03-25-2013 Lipid panel [AGGREGATE] *Lipid Profile [employer] Work Phone: Start: 03-11-2013 End: 02-24-2014 PFM PFM [employer] Work Phone: Start: 08-27-2012 End: 03-25-2013 *Hepatic Function Panel *Hepatic Function Panel [employer] Work Phone: Start: 08-27-2012 End: 02-27-2013 Follow Up Appt 6 months Follow Up Appt 6 months [employer] Work Phone: Start: 08-27-2012 End: 03-25-2013 Lipid panel [AGGREGATE] *Lipid Profile [employer] Work Phone: Start: 02-23-2012 End: 02-23-2012 Echocardiography Echocardiogram (complete) [employer] Work Phone: Start: 02-23-2012 End: 02-23-2012 Electrocardiogram, complete EKG (In office) [employer] Work Phone: Start: 02-23-2012 End: 02-27-2013 Follow Up Appt 6 months Follow Up Appt 6 months [employer] Work Phone: Start: 02-23-2012 End: 02-23-2012 Nuclear stress test -exercise Nuclear stress test -exercise [employer] Work Phone: Start: 2011 Prostate specific antigen measurement Prostate Cancer Screening Discussion [facility] Start: 2006 Pneumococcal Vaccine: 50+ (1 of 1 - PCV) Pneumococcal Vaccine: 50+ (1 of 1 - PCV) [facility] Start: 2006 Screening for malignant neoplasm of lung Lung Cancer Screening [facility] Start: 2006 Shingrix Vaccine (1 of 2) Shingrix Vaccine (1 of 2) [facility] Start: 2001 Diabetes Screening Diabetes Screening [facility] Start: 2001 Prostate specific antigen measurement Prostate Cancer Screening Discussion [facility] Start: 2001 Screening for malignant neoplasm of colon [facility] Start: 1991 Lipid panel Lipid Screening [facility] Start: 1975 Urine microalbumin profile DTaP,Tdap,Td Vaccine (1 - Tdap) [facility] Start: 1974 Anxiety Screening Anxiety Screening [facility] Start: 1974 Depression Screening Depression Screening [facility] Start: 1974 Hepatitis C screening Hepatitis C Screening [facility] Start: 1956 Abdominal aortic aneurysm screening Abdominal Aortic Aneurysm Screening [facility] Electrocardiographic procedure [facility] Esophageal motility study w/interp&rpt ESOPHAGEAL MANOMETRY Dysphagia, unspecified type [facility] NM Heart Views W str ess and W radionuclide IV [facility] Patient Education HYPERLIPIDEMIA [facility] Work Phone: Patient referral [facility] Work Phone: Immunizations Immunization Date Immunization Notes Care Provider Vince quezada 04-22-2021 SARS-CoV-2 (COVID-19 ) mRNA-1273 vaccine CAMDEN BACK [employer] [facility] 03-25-2021 SARS-CoV-2 (COVID-19 ) mRNA-1273 vaccine CAMDEN BACK DO [facility] Payers Date Payer Category Payer Unknown [id number] 2024 Private Health Insurance [id number] 2024 Medicaid [id number] 2024 Medicare AETNA MEDICARE A ETNA MEDICARE ASSURE HMO D SNP [id number] 2024-Present [phone] [address] [place] [address] Medicare [id number] 2024 Medicare (Managed Care) [id number] 2024 Self-pay [id number] 2024 Unknown [id number] 2023 Unknown [id number] 2013 Unknown [facility] [id number] 1956 Unknown [id number] 1956 Unknown [id number] 1956 Unknown [id number] 1956 Unknown [id number] 1956 Unknown [id number] 627 Medicare MEDICARE PART A B [id number] 1 [id number] Unknown [id number] Unknown [id number] Unknown [id number] Social History Date Type Detail Facility Start: 07-08-2019 Light tobacco smoker (finding) [facility] Sex Assigned At [facility] Start: 06-09-2023 End: 08-17-2023 Tobacco smoking status NHIS Unknown if ever smoked [facility] Start: 1955 Sex Assigned At Male W [facility] Start: 05-05-1974 End: 05-22-2024 Tobacco smoking status NHIS Smokes tobacco daily [facility] Start: 05-05-1974 History of tobacco use Cigarette Smo ker [facility] Start: 09-03-2019 End: 10-19-2019 Cigarettes smoked current (pack per day) - Reported 1 [facility] Start: 09-03-2019 Tobacco use and exposure Smokeless tobacco non-user [facility] Start: 11-12-2024 Alcoholic beverage intake Current non-drinker of alcohol (finding) [facility] Start: 10-19-2019 End: 11-12-2024 Tobacco use panel [facility] PHQ-2 Score 0 [facility] Start: 1955 Sex assigned at Not on file [facility] Start: 03-17-2025 Sex Male (finding) [facility] Medical Equipment Procedure Code Equipment Code Equipment Origin al Text Equipment Identifier Dates Repair, hernia, ventral or umbilical, laparoscopic ([id number]) Extra-gynaecologic al surgical mesh, composite-polymer ()[id number] FDA Start: 08-28-2023 Repair, hernia, ventral or umbilical, laparoscopic Endoscopic manual linear stapler [id number] FDA Start: 08-28-2023 Goals Date Patient Goal Desired Activity /State Functional Status Date Assessment Result Facility 10-21-2024 Functional Status Repositions self [facility] 10-21-2024 Functional Status Maintained [facility] 05-05-2014 Are you deaf, or do you have serious difficulty hearing No 05/05/2014 12:02 PM Karo Shearer RN No [facility] 05-05-2014 Are you blind, or do you have serious difficulty seeing, even when wearing glasses No 05/05/2014 12:02 PM Karo Shearer, SHARON No [facility] 05-05-2014 Do you have serious difficulty walking or climbing stairs No 05/05/2014 12:02 PM Karo Shearer, SHARON No [facility] 05-05-2014 Do you have difficul ty dressing or bathing No 05/05/2014 12:02 PM EDT Karo Simeon RN No [facility] 05-05-2014 Because of a physica l, mental, or emotional condition, do you have difficulty doing errands alone such as visiting a physician's office or shopping No 05/05/2014 12:02 PM EDT Karo Simeon RN No [facility] Mental Status Date Assessment Result Facility 10-21-2024 Mental Status Orientation Oriented x 4 [facility] 10-21-2024 Mental Status [facility] 08-28-2023 Cognitive function Voice/Name [facility] Work Phone: 05-05-2014 Because of a physica l, mental, or emotional condition, do you have serious difficulty concentrating, remembering, or making decisions No 05/05/2014 12:02 PM EDT Karo Simeon RN No [facility] Clinical Notes 08-28-2023 to 04-28-2025 Telephone Encounter - [place] Blood RN - 04/28/2025 4:36 PM EDTTelephone Encounter - [facility] Blood RN - 04/28/2025 4:36 PM EDTTelephone Encounter - [facility] Blood RN - 04/23/2025 2:30 PM EDT Note Date & Type Note Facility 04-28-2025 Telephone encount er Note Opened in error [facility] 04-28-2025 Miscellaneous Notes Formattin g of this note might be different from the original. Opened in error documented in this encounter [facility] 04-23-2025 Telephone encount er Note I called and left a message on 04/11/25 and again today in an attempt to reschedule esophageal manometry. I left my contact information. Phoenix Blood RN [facility] 04-23-2025 Miscellaneous Notes Formattin g of this note might be different from the original. I called and left a message on 04/11/25 and again today in an attempt to reschedule esophageal manometry. I left my contact information. [facility] Blood RN documented in this encounter [facility] 03-17-2025 Telephone encount er Note I called patient to reschedule his esophageal manometry but patient asked if I would call him back in a week. He said he is scheduled for another test at [facility] and would like to get that completed first. I agreed to call him back. [place] Blood RN [facility] 03-17-2025 Miscellaneous Notes Formattin g of this note might be different from the original. I called patient to reschedule his esophageal manometry but patient asked if I would call him back in a week. He said he is scheduled for another test at [facility] and would like to get that completed first. I agreed to call him back. [facility] Blood RN documented in this encounter [facility] 12-11-2024 Telephone encount er Note Rescheduled for 02/28/2025 10am. Tess Gonzales LPN [facility] Work Phone: 12-11-2024 Miscellaneous Notes Formattin g of this note might be different from the original. Rescheduled for 02/28/2025 10am. Tess Gonzales LPN Patient called and cancelled manometry for 12/12/24, does not want to reschedule until late January early February. Tess Gonzales LPN documented in this encounter [facility] 12-11-2024 Telephone encount er Note Patient called and cancelled manometry for 12/12/24, does not want to reschedule until late January early February. Tess Gonzales LPN [facility] 12-02-2024 Telephone encount er Note I called patient and informed him that per Dr. Back, he is to start holding his Plavix on 12/06/24 and restart it on 12/13/24. Patient agreed with the plan. Phoenix Blood RN [facility] 12-02-2024 Miscellaneous Notes Formattin g of this note might be different from the original. I called patient and informed him that per Dr. Back, he is to start holding his Plavix on 12/06/24 and restart it on 12/13/24. Patient agreed with the plan. [place] Blood RN documented in this encounter [facility] 11-29-2024 Telephone encount er Note Clearance/medication recommendation scanned into chart for review [facility] 11-29-2024 Miscellaneous Notes Formattin g of this note might be different from the original. Clearance/medication recommendation scanned into chart for review documented in this encounter [facility] 11-12-2024 Telephone encount er Note I [...] Wilde for test results. Phoenix Blood RN [facility] 11-12-2024 Miscellaneous Notes Formattin g of [...] [facility] Blood RN documented in this encounter [facility] 10-31-2024 Note ORIGINAL HISTORY: Reflux and [...] Sign Date: 10/31/2024 11:49:46 AM Ordering Provider: [facility] 10-21-2024 Evaluation + Plan note Extrac bhavik from: Title:Clinical Document Author:JUAN WILDEENT M D Date:10/21/24 [facility]ONA ADMISSION HISTORY AN D PHYSICIAL CHIEF COMPLAINT: HISTORY OF PRESENT ILLNESS: REVIEW OF SYSTEMS: ACTIVE PROBLEMS: (20) Back spasm (780125745) Cervical disc disease (2744171635) Chronic neck and back pain (024992025) COPD without exacerbation (53329217) Coronary artery disease (6921879208) DDD (degenerative disc disease), lumbar (82130014) Diabetes mellitus (111160956) Dysphagia (469339604) Esophageal reflux disease (912804181) Essential hypertension (30284372) Hx UT, P/S, hernia repair x7, smoker Hyperlipidemia (233553100) Left hip pain (76371855) Leukocytosis (424697610) Primary insomnia (6837771) Screening for prostate cancer (694804402) Smokes less than 1 pack a day with greater than 40 pack year history (116796787) Tobacco dependence due to cigarettes (6924244324) Tobacco use (7432280809) Ventral hernia (2837627106) MEDICATIONS: Active Inpt Meds: None Active PRN Meds: None One Time Meds: None Active IV Meds: Lactated Ringers Infusion 1,000 mL (LR 1,000 mL) Start: 10/21/24 7:42:00 EST, Rate: 50 mL/hr, 10/21/24 7:42:00 EST ALLERGIES: (1) Zetia FAMILY HISTORY: SOCIAL HISTORY: PHYSICAL EXAM: VITALS: RittunJognEXJpspeRLPfV0QSA9LcdzCs(kg) 10/21 07:5436.2--110189RB97/25 76.2 24 Hr Tmax: 36.2 at 10/21 [...] 05/01/24 Radiology* XR Esophogram W/Barium Tablet 10/31/24 [facility] 11-25-2024 Hospital Discharge instructions Patient Education 10/21/2024 [...] before eating solid foods. General instructions Take qnsr-sfk-eutharc and prescription medicines only as told by [...] 03/05/2017 Document Revised: 02/11/2019 Document Reviewed: 03/05/2017 [employer] Patient Education 2020 [employer]. 10/21/2024 09:40:15 9 - AO Minor Esophagogastroduodenoscopy [...] WILDE Address: [address] [place] [phone] Business (1) When: Unknown [facility] 11-25-2024 Note Date of Service 10/21/2024 Procedure Name EGD with biopsy Consent Taken before procedure Indication Patient with dysphagia Location [facility] Pre-Procedure Exam Dysphagia Procedural Sedation Anesthesia [...] ESOPHAGOGASTRODUODENOSCOPY WITH BIOPSY, DYSPHAGIA, DYSPHAGIA, Preferred Lab: [facility], [id number] Post Procedure Assessment, 10/21/24 9:38:00 EST, Stop [...] LOCO WILDE MD on 10/21/2024 09:41 AM [facility]11-25-2024 Note Discharge Instructions Thank you for allowing [facility] to assist you with your healthcare needs. The following is importantdischarge information regarding your hospital visit. Your Care Team CAMDEN BACK DO What to do next Scheduled Follow-Up Appointments Appointment Type When With Where Contact Information StatusXR Esophogram W/Barium Tablet 0:30 AM EST [facility] [phone] Confirmed PC OV Controlled Medication 11/06/2024 11:00 AM EST CAMDEN BACK DO [facility] Confirmed Follow Up Appointments Follow Up with LOCO WILDE Where:[address] [place] [phone] [facility] (1) The Following Activity and Diet Have [...] before eating solid foods. General instructions Take xqsh-acv-znbtscl and prescription medicines only as told by [...] 03/05/2017 Document Revised: 02/11/2019 Document Reviewed: 03/05/2017 [employer] Patient Education 2020 [employer] Esophagogastroduodenoscopy This is an endoscopic procedure [...] to receive it can visit one of [facility] vaccine clinics. There are many vaccine clinic locations within the [facility]. For locations and available times, please visit [email or web address] It is important to note that some COVID mobile vaccine clinics are held outdoors and may be canceled in rainy or stormy conditions. To learn more about pediatric vaccinations (ages 5-11), we invite you to visit the [employer] webpage. [email or web address]/[email or web address].htmlTo learn more about the COVID-19 vaccine, we invite you to visit the CDC website for a list of frequently asked questions.https://www.cdc.gov/coronavirus/2019-ncov/vaccines/faq.html [employer] Patient Portal Access Instructions: Stay connected with your healthcare team and access your personal medical information anytime with the [employer] Patient Portal. Please follow the directions below to create your [employer] account: 1.Access the email account you provided upon registration to the hospital/physician office.2.Look for an invitation email from [facility].3.Open the email and access the invitation link: AcceptInvitation to [employer].4.Fill in the required joaquin to create your account. To access your account, visit [email or web address]. Click the blue button labeled Access Patient [...] who you will allowto register on the [facility] Portal for access to your information. You can also access the [facility] on the [place]. Simply click on Patient Portal and then log into your account. If you would like to receive a full copy of your medical records, please contact the [facility] Medical Records Department by calling [phone], Monday through Monday between 8 a.m. and [...] Call your local pharmacy or go to [email or web address] to find one close to you.3.Make use of household items: Use cat litter or old coffee grounds to dispose medications if other options arenot available. Mix your drugs with these household products, seal them in an airtight container andthrow it into the garbage. Call [facility]: [phone] to be sure your drugs can be [...] am aware that I should contactmy doctor. 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 Signature: Date/Time: Relationship to Patient: Witness Name/Signature: Date/Time: [facility]11-25-2024 Anesthesiology Consult note Patient: MAGDALENO MORENO LUKE Germain Age: 69 years Sex: Male : 1955 Associated Diagnoses: None Author: AFSHIN ZHENG AQUATICS LIFEGUARD-LOCK EXPERT Assessment Postanesthesia assessment Vitals: Vital signs from [...] by AFSHIN ZHENG on 10/21/2024 09:38 AM [facility]11-25-2024 Note RAMONA ADMISSION HISTORY AND PHYSICIAL CHIEF COMPLAINT: HISTORY OF PRESENT ILLNESS: REVIEW OF SYSTEMS: ACTIVE PROBLEMS: (20) Back spasm (010176269) Cervical disc disease (5303178562) Chronic neck and back pain (013881503) COPD without exacerbation (57543680) Coronary artery disease (9408721558) DDD (degenerative disc disease), lumbar (61701629) Diabetes mellitus (803302429) Dysphagia (454484819) Esophageal reflux disease (838639741) Essential hypertension (17212754) Hx UT, P/S, hernia repair x7, smoker Hyperlipidemia (076380772) Left hip pain (06537030) Leukocytosis (276398379) Primary insomnia (1625697) Screening for prostate cancer (249028608) Smokes less than 1 pack a day with greater than 40 pack year history (919415647) Tobacco dependence due to cigarettes (3726826360) Tobacco use (6104919036) Ventral hernia (4192030007) MEDICATIONS: Active Inpt Meds: None Active PRN Meds: None One Time Meds: None Active IV Meds: Lactated Ringers Infusion 1,000 mL (LR 1,000 mL) Start: 10/21/24 7:42:00 EST, Rate: 50 mL/hr, 10/21/24 7:42:00 EST ALLERGIES: (1) Zetia FAMILY HISTORY: SOCIAL HISTORY: PHYSICAL EXAM: VITALS: TkgsagSilzHIEfgdfQQPwS7MZZ7GsiqVm(kg) 10/21 07:5436.2--084131DU06/25 76.2 24 Hr Tmax: 36.2 at 10/21 [...] LOCO WILDE MD on 10/21/2024 09:27 AM [facility]11-25-2024 Anesthesiology Consult note Patient: LUKE DOLAN SR Age: 69 years Sex: Male : 1955 Associated Diagnoses: None Author: AFSHIN ZHENG APRN-LOCK EXPERT Preoperative Information Time of last food or [...] Medical Cervical disc disease / SNOMED CT 0290293591 / Confirmed COPD without exacerbation / SNOMED CT 84750092 / Confirmed Chronic neck and back pain / SNOMED CT 271092034 / Confirmed Smokes less than 1 pack a day with greater than 40 pack year history / SNOMED CT 228425697 / Confirmed Coronary artery disease / SNOMED CT 8791966889 / Confirmed DDD (degenerative disc disease), lumbar / SNOMED CT 53812023 / Confirmed Diabetes mellitus / SNOMED CT 332972558 / Confirmed Essential hypertension / SNOMED CT 40793875 / Confirmed Esophageal reflux disease / SNOMED CT 182596170 / Confirmed Ventral hernia / SNOMED CT 2411068612 / Confirmed Left hip pain / SNOMED CT 56147497 / Confirmed Leukocytosis / SNOMED CT 397449699 / Confirmed Hyperlipidemia / SNOMED CT 353331146 / Confirmed Dysphagia / SNOMED CT 229648868 / Confirmed Screening for prostate cancer / SNOMED CT 490336326 / Confirmed Primary insomnia / SNOMED CT 3253365 / Confirmed Back spasm / SNOMED CT 708739270 / Confirmed Tobacco dependence due to cigarettes / SNOMED CT 7260962603 / Confirmed Resolved: Cough / SNOMED CT 83924615 Canceled: COPD exacerbation / SNOMED CT 172369028 Canceled: Cervical disc disease / SNOMED CT 2028053064 Canceled: Neoplasm of skin of face / SNOMED CT 13851381 Canceled: Pre-op exam / SNOMED CT 139929477 Canceled: Viral upper respiratory tract infection with cough / SNOMED CT 903897032, Active Problems (20) Back spasm Cervical disc disease Chronic neck and back pain COPD without exacerbation Coronary artery disease DDD (degenerative disc disease), lumbar Diabetes mellitus Dysphagia Esophageal reflux disease Essential hypertension Hx UT, P/S, hernia repair x7, smoker Hyperlipidemia Left hip pain Leukocytosis Primary insomnia Screening for prostate cancer Smokes less than 1 pack a day with greater than 40 pack year history Tobacco dependence due to cigarettes Tobacco use Ventral hernia Histories Past Medical History: Resolved Cough (49590608): Resolved. Family History: Cancer Father Comments: 07/08/2019 10:37 Vita Garibay LPN lung cancer Hypertension Mother Hyperlipidemia Mother Procedure history: Extracapsular cataract removal with insertion of intraocular lens prosthesis (1 stage procedure), manual or mechanical technique (eg, irrigation and aspiration or phacoemulsification); with endoscopic cyclophotocoagulation (93687) on 08/03/2023 at 68 Years. Comments: 08/09/2023 10:38 Vita Garibay LPN right eye-[facility] Cataract extraction and insertion of intraocular lens (4969783977) on 01/25/2017 at 61 Years. Comments: 07/05/2019 13:09 Tawny Brown LPN Left Inguinal hernia (6929295940) in 2012 at 58 Years. Comments: 07/05/2019 13:09 Tawny Brown LPN Repair Cholecystectomy (90064677) in 2010 at 56 Years. Stent placement (062266497) in 2009 at 55 Years. Comments: 07/05/2019 13:10 Tawny Brown LPN multiple stents Tonsillectomy (825414836). Social History: Social & Psychosocial Habits Alcohol [...] Signs (last 24 hrs) Last Charted Temp Sdlyfkzn40.2 DegC (OCT 21 07:54) Heart Rate Hgodev72 bpm (OCT 21 07:54) SBPH 146 mmHg (OCT 21 07:54) DBP74 mmHg (OCT 21 07:54) Measurements from flowsheet : Measurements 10/21/2024 7:54 EST Height 167.5 cm Height in inches 65.9 inch(es) Admission Weight 76.2 kg Weight Lbs 167.6 lb [place] Body Weight 63.67 kg 10/21/2024 7:49 EST Height 167.5 cm [place] Body Weight 63.67 kg Pain assessment: Pain [...] Present Present Anesthesia Extension Set Applied Yes Vegetable Buncher On Yes 10/21/2024 8:03 EST Continuous IV [...] Palpation Non-Tender Skin Temperature Warm Skin Description [place], Normal for ethnicity Skin Integrity Intact Skin [...] Weight 76.2 kg Weight Lbs 167.6 lb [place] Body Weight 63.67 kg Temperature Temporal Artery [...] Privacy Restrictions Requested None Height 167.5 cm [place] Body Weight 63.67 kg Status N/A Sensory [...] evident Teaching Method Explanation Preferred Spoken Language Gabonese Preferred Written Language Gabonese Patient's Current Physicians [facility] Discharge To, Anticipated Home independently Prev Test [...] Intake 10/20/2024 8:00 . Assessment and Plan [place] Society of Anesthesiologists (ASA) physical status classification: Class III. Anesthetic Preoperative Plan Premedication: intravenous. Anesthetic technique: MAC. Induction: intravenously. Maintenance airway: Mask. Risks discussed: nausea, vomiting, headache, sore throat, dental injury, hypotension, allergic reaction, serious complications. Informed consent: signed by patient. Digitally Signed by AFSHIN ZHENG on 10/21/2024 08:18 AM Digitally Signed by AFSHIN ZHENG on 10/21/2024 09:41 AM [facility]10-02-2023 Procedure [facility]10-02-2023 History and physical note Author Chary Fontaine [facility] August 28, 2023 12:01pm Note Date/Time August 28, 2023 11 :56am [facility] System Medical Records Department [address] [place] [address] History & Physical Exam 08/28/23 1156 MR#: [id number] Acct: [id number] Name: LUKE DOLAN Rep #:[id number] : 1955 68 From: Chary Fontaine MD PCP: Dr. Camden Back DO [place] [facility] [place]: [place] [address] History and Physical Date of Admission: 08/28/23 Date of Service: 08/07/23 MR#: [id number] Acct: [id number] Name: LUKE DOLAN . Rep #: [id number] : 1955 Provider: Dr. Chary Fontaine MD Age/Sex: 68/M Location: [facility] Status: Signed Intake Vital Signs 06/09/2309:42 08/07/2314:09 [...] [Rx Confirmed 08/07/23] PFSH Medical History Acute UT, anterior wall, subsequent episode of care Atherosclerotic heart disease of [place] coronary artery without angina pectoris Chest pain [...] Agreed to proceed. Chary Fontaine M.D. Pager: [phone] [facility] [address] [place] [address], [facility], [address] [place] [address] Office: [phone] Coding Level of Care Code Off vis,est,level [...] DO; Dr. Chary Fontaine MD ~* Signed [facility] Work Phone: Discharge summary Author Chary Fontaine [facility] August 28, 2023 2:07pm Note Date/Time August 28, 2023 2: 00pm [facility] System Medical Records Department [address] [place] [address] Instructions for Home/Discharge Instructions 08/28/23 1359 MR#: [id number] Acct: [id number] Name: LUKE DOLAN Rep #:[id number] : 1955 68 From: Chary Fontaine MD PCP: Dr. Camden Back DO [place] Discharge Instructions Diet Discharge Diet: No restrictions [...] after 5 PM and on thends call [phone] with any concerns. Test Results: Test results [...] CC: Dr. Camden Back DO ~ Signed [facility] Work Phone: Evaluation + Plan note Future Appointments Appointment Date:02/02/2022 11:00:00 AM Scheduled Provider:CAMDEN BACK DO Location:[id number] Appointment Type:PC OV Controlled Medication Future Scheduled Tests Radiology* XR Swallowing Function 02/03/21 [facility] Evaluation + Plan note Future Appointments Appointment Date:02/01/2023 10:30:00 AM Scheduled Provider:CAMDEN BACK DO Location:[facility] Appointment Type:PC OV Controlled Medication [facility] Evaluation + Plan note Future Appointments Appointment Date:05/01/2024 11:00:00 AM Scheduled Provider:CAMDEN BACK DO Location:[id number] Appointment Type:PC OV Controlled Medication Future Scheduled Tests Laboratory* Prostate Specific Antigen 01/31/24 * Complete Blood Count 01/31/24 * Lipid Profile 01/31/24 * Albumin/Creatinine Ratio, Random Urine 01/31/24 * Complete Metabolic Panel 01/31/24 [facility] Evaluation + Plan note Future Appointments Appointment Date:11/06/2024 11:00:00 AM Scheduled Provider:CAMDEN BACK DO Location:[facility] Appointment Type:PC OV Controlled Medication Future Scheduled Tests Laboratory* Complete Blood Count 07/30/24 * Lipid Profile 07/30/24 * Albumin/Creatinine Ratio, Random Urine 05/01/24 [facility] evaluation note* Diagnosis Onset Date Resolution Status Essential hypertension chron ic Hyperlipidemia chronic Nicotine dependence chronic Presence of stent in coronary artery 2008 chronic Ventral hernia acute [facility] Work Phone: Evaluation note* Diagnosis Onset Date Resolution Status Ventral hernia acute Ventral hernia [facility] Work Phone: Evaluation note* Diagnosis Dysphagia, unspecified type- Primary Dysphagia, unspecified type [facility] encounter [facility] Diagnosis Dysphagia, unspecified type- Primary documented in this encounter [facility] noteNo assessment information availableWProMedica [facility] Work Phone: Hospital course Narrative No data available for this section [facility] Hospital Discharge instructions No data available for this section [facility] Progress note No data available for this section [facility] Reason for referral (narrative)No reason for referral information availableWProMedica Memorial Hospital Work Phone: Summary Purpose Family History No [...] No May 12, 2016 2:14pm Power of Commercial Sales Consultant No May 12 6 2:14pm Advance Directive Response Recorded Date/ Time Advance Directives No May 12 16 2:14pm Living Will No August 17, 2023 8:15am Power of Commercial Sales Consultant No July 8:15am Advance Directive Response Recorded [...] section and content) DATE CREATED AUTHOR 09/04/2019 [facility] DATE CREATED AUTHOR AUTHOR'S ORGANIZ ATION 05/15/2024 [facility] ([place]) DATE CREATED AUTHOR AUTHOR'S ORGANIZ ATION 03/08/2025 [facility] DATE CREATED AUTHOR AUTHOR'S ORGANIZ ATION 03/17/2025 [facility] DATE CREATED AUTHOR AUTHOR'S ORGANIZ ATION 04/29/2025 [facility] Care Team (unrecognized sect ion and content) Care Team Personnel Name: CAMDEN BACK DO Position: P4 Physician - Primary Care Member Role: Primary Care Physician Address: Address: [address] Care Team Related Persons Name: LON DOLAN Care Teams (unrecognized sec tion and content) Team Status: Active Member Role Status Dates Dr. Camden Back DO Family Provider Active Dr. Camden Back DO Primary Care Provider Active Team Status: Inactive Member Role Status Dates Dr. Camden Back DO Primary Care Provider, Referri ng Provider Active Mariaelena Tuttle STENOTYPIST, STENOTYPIST-C Attending Provider Active Team Status: Inactive Member Role Status Dates Dr. aCmden Back DO Primary Care Provider, Referri ng Provider Active Dr. Chary Fontiane MD Attending Provider Active Team Status: Inactive Member Role Status Dates Dr. Camden Back DO Primary Care Provider Active Dr. Chary Fontaine MD Attending Provider, Referring Provider Active Team Status: Active Member Role Status Dates Dr. Camden Back DO Primary Care Provider Active Dr. Aaron Roy MD Attending Provider Active Team Status: Inactive Member Role Status Dates Dr. Cmaden Back DO Primary Care Provider Active Dr. [...] Provi leo, Referring Provider, Other Provider Active Adoption Social Worker Relationship Specialty Start Date End Date Camden Back DO [address] [facility] [address] [place] [address] PCP - General Family Medicine 11/12/24 Adoption Social Worker Relationship Specialty Start Date End Date Camden Back DO [address] [place] [address] PCP - General Family Medicine 11/12/24 Adoption Social Worker Relationship Specialty Start Date End Date Camden Back DO [address] [place] [address] PCP - General Family Medicine 11/12/24 Team [...] March 11, 2025 End: March 11, 2025 Adoption Social Worker Relationship Specialty Start Date End Date Camden Back DO [address] [place] [address] PCP - General Family Medicine 11/12/24 Adoption Social Worker Relationship Specialty Start Date End Date Camden Back DO [address] [place] [address] PCP - General Family Medicine 11/12/24 Goals [...] or prosecute any alcohol or drug abuse patient.[facility] HospitalIn the event this information is protected by the Federal Confidentiality of Alcohol and Drug Abuse Patient Records regulations: The Federal rules restrict any use of the information to criminally investigate or prosecute any alcohol or drug abuse patient.[facility] HospitalIn the event this information is protected by the Federal Confidentiality of Alcohol and Drug Abuse Patient Records regulations: The Federal rules restrict any use of the information to criminally investigate or prosecute any alcohol or drug abuse patient.[facility] HospitalIn the event this information is protected by the Federal Confidentiality of Alcohol and Drug Abuse Patient Records regulations: The Federal rules restrict any use of the information to criminally investigate or prosecute any alcohol or drug abuse patient.[facility] HospitalIn the event this information is protected by the Federal Confidentiality of Alcohol and Drug Abuse Patient Records regulations: The Federal rules restrict any use of the information to criminally investigate or prosecute any alcohol or drug abuse patient.[facility] HospitalIn the event this information is protected by the Federal Confidentiality of Alcohol and Drug Abuse Patient Records regulations: The Federal rules restrict any use of the information to criminally investigate or prosecute any alcohol or drug abuse patient.[facility] HospitalIn the event this information is protected by the Federal Confidentiality of Alcohol and Drug Abuse Patient Records regulations: The Federal rules restrict any use of the information to criminally investigate or prosecute any alcohol or drug abuse patient.[facility] HospitalIn the event this information is protected by the Federal Confidentiality of Alcohol and Drug Abuse Patient Records regulations: The Federal rules restrict any use of the information to criminally investigate or prosecute any alcohol or drug abuse patient.[facility] Reason for Visit (unrecogniz ed section [...] BE BASED ON THE PRIMARY CLINICAL RECORDS. [employer] [facility]. provides no warranty or guarantee of the accuracy or completeness of information in this document.
[2025-05-17] MEDS: Ceftriaxone 2 GM in 0.9% Normal Saline (50mL MB+) 50 ML IV (14:15)
--- NOTE | 2025-05-17 14:22 | CONS.ORTHO ---
HPI Consult Data Date of Consult: 05/17/25 HPI Narrative HPI Narrative: ESTEBAN JAMISON, is a 69 M who presents for 3 days hx of left knee pain and swelling. The patient had progressive worsening left knee pain atraumatic no history of fevers or chills but the knee pain got worse to where he could only bend at about 0 to 10 degrees. No history of gout no history of pseudogout. Not on any immune suppressing medications although the patient does have diabetes. No history he states of IV drugs. He does smoke half a pack of cigarettes a day. Patient been n.p.o. since about 1:00 he had a few sips of coffee. Did not eat lunch. FORMERLY [facility] Medical History Diabetes High cholesterol Back pain Gastric reflux Smoker Cardiology follow-up encounter Presence of stent in coronary artery (~08/2008) Essential hypertension Ventral incisional hernia without obstruction or gangrene Hyperlipidemia Acute NV, anterior wall, subsequent episode of care Old myocardial infarction Syncope and collapse Dyspnea Chest pain Long-term use of high-risk medication Atherosclerotic heart disease of [place] coronary artery without angina pectoris Home Medications ?Medication ?Instructions ?Recorded ?Last Taken ?Type fenofibrate 160 mg tablet 160 mg PO DAILY #30 tabs 12/17/18 05/16/25 Rx rosuvastatin 40 mg tablet (Crestor) 40 mg PO DAILY 06/05/19 05/17/25 History lisinopril 40 mg tablet 40 mg PO DAILY #90 tabs 12/13/21 05/17/25 Rx aspirin 81 mg tablet,delayed 81 mg PO DAILY 08/17/23 05/16/25 History release (Adult Aspirin Regimen) clopidogrel 75 mg tablet 75 mg PO DAILY #90 tabs 05/22/24 05/17/25 Rx ezetimibe 10 mg tablet 10 mg PO DAILY 05/17/25 05/17/25 History hydrocodone-acetaminophen 5-325mg 1 tab PO Q6H PRN PRN Pain 3 days 05/17/25 Unknown Rx 5mg-325mg #10 TABLETS metformin 500 mg tablet,extended 500 mg PO BID 05/17/25 05/17/25 History release 24 hr oxycodone-acetaminophen 5 mg-325 1 tab PO Q6H 05/17/25 05/16/25 History mg tablet pantoprazole 40 mg tablet,delayed 40 mg PO DAILY 05/17/25 05/17/25 History release Allergy/AdvReac Type Severity Reaction Status Date / Time atorvastatin calcium (From AdvReac Pain in Verified 05/17/25 09:30 Lipitor) joints Family History Father CAD (coronary artery disease) Diabetes Thyroid disorder Hypertension Cancer lung Mother Hypertension Aneurysm Brother CAD (coronary artery disease) Sister Congestive heart failure Surgical History History of ventral hernia repair (~08/2023) History of coronary artery stent placement History of cardiac catheterization History of cataract surgery Presence of coronary angioplasty implant and graft (~08/2008) History of umbilical hernia repair History of cholecystectomy (~02/2012) History of hernia repair History of tonsillectomy Social History Smoking Status: Current every day smoker tobacco type: cigarettes alcohol intake: current alcohol intake frequency: holidays/special occasions only substance use type: does not use caffeine: Yes Vital Signs Vital Signs Vital Signs: 05/17/25 09:30 05/17/25 13:30 05/17/25 13:47 Temperature 98.1 F 97.8 F Temperature Source Temporal Oral Pulse Rate 93 78 86 Respiratory Rate 14 18 16 Blood Pressure 184/94 H 178/84 H 188/85 H Blood Pressure Mean 124 115 119 Blood Pressure Source Monitor Blood Pressure Position Semi-Fowlers Blood Pressure Location Left Arm Pulse Ox 99 99 100 Oxygen Delivery Method Room Air Room Air Room Air 05/17/25 14:19 Temperature 97.8 F Temperature Source Pulse Rate 81 Respiratory Rate 18 Blood Pressure 179/81 H Blood Pressure Mean 113 Blood Pressure Source Blood Pressure Position Blood Pressure Location Pulse Ox 99 Oxygen Delivery Method Weight Weight: 172 lb 13.478 oz Body Mass Index (BMI) 27.8 Physical Exam Const alert, oriented x3 and no apparent distress Constitutional Narrative: He appears nontoxic. He is in good spirits. Here with 3 family members. General Appearance: cooperative Extremity Extremity Narrative: Left knee on inspection there is mild swelling. There is a small effusion. There is mild warmth. No obvious overlying redness. The range of motion right now his actively and passively is from 0 to 100 degrees with some mild pain at the end ranges of motion. Full hip range of motion no pain with range of motion of the ankle. Neurovascular intact normal sensation throughout the foot foot is warm and well-perfused able to dorsiflex and plantarflex the foot. Ligamentous exam is stable of the knee. There is mild pain to palpation diffusely about the knee. No active drainage. There is a sign from previous aspiration today as well as a medially based transversely well-healed scar from a lawnmower accident. Medical Records Data Attestation: I reviewed the patient's medical records Lab / Micro Data Attestation: I reviewed the patient's lab results. 05/17/25 09:50 05/17/25 09:50 Labs: Laboratory Results - last 24 hr 05/17/25 09:50: WBC 17.5 H, RBC 5.43, Hgb 15.5, Hct 46.6, MCV 85.8, MCH 28.5, MCHC 33.3, RDW Std Deviation 44.8 H, RDW Coeff of Kranthi 14.3, Plt Count 297, MPV 9.1, Immature Gran % (Auto) 0.200, Neut % (Auto) 51.0, Lymph % (Auto) 37.9, [place] % (Auto) 9.4, Eos % (Auto) 1.0, Baso % (Auto) 0.5, Absolute Neuts (auto) 8.9 H, Absolute Lymphs (auto) 6.61 H, Nucleated RBC % 0, ESR 45 H, Sodium 135, Potassium 4.0, Chloride 101, Carbon Dioxide 20.2 L, Anion Gap 14, BUN 12, Creatinine 0.87, Estim Creat Clear Calc 80.05, Est GFR (MDRD) Non-Af 94, BUN/Creatinine Ratio 13.7, Glucose 112 H, Calcium 9.6, Total Bilirubin 0.47, AST 19, ALT 9, Alkaline Phosphatase 66, C-React Prot Ext Range 19.80 H, Total Protein 7.1, Albumin 4.0, Globulin 3.1, Albumin/Globulin Ratio 1.3 05/17/25 11:32: Fluid Crystals NO CRYSTALS SEEN, Fluid Crystal Source SYNOVIAL, Fl Crystal Path Review Will follow, Synovial Source LT KNEE, Synovial Color Yellow, Synovial Appearance Cloudy, Synovial Viscosity Mod. Viscous, Synovial WBC 15.3600 H, Synovial RBC 0.008 H, Synovial Tot Cell Ct 15.3980 H, Synov Polynuclear WBCs 11.969, Synov Mononuclear WBCs 1.353, Synovial Neutrophils 73 H, Synovial Lymphocytes 1, Synovial Monocytes 26, Synovial Polynuclear % 89.8, Synovial Mononuclear % 10.2, Synovial Path Comment May follow Micro: Microbiology 05/17/25 11:32 Fluid - Synovial (joint) Gram Stain - Final Imaging Radiology Impression Knee X-Ray 05/17/25 11:10 IMPRESSION: No acute fracture or dislocations. Mild to moderate degenerative changes of the left knee with chondrocalcinosis. Moderate soft tissue edema. Large joint effusion. No radiographic foreign body. Reading Location: [id number] Lumbar Spine X-Ray 05/17/25 11:10 IMPRESSION: No acute process identified. Degenerative disc disease Reading [facility] reviewed the knee x-rays I agree there is signs of chondrocalcinosis with a joint effusion. Assessment & Plan Assessment/Plan (1) Chondrocalcinosis of left knee: PLAN: 69-year-old man with acute onset of atraumatic 3 days history of left knee pain and swelling. Very low-grade fever increased white blood cell count increased ESR and CRP with synovial fluid aspiration showing 1+ Gram stain as well as 15,000 white blood cell count with 70% neutrophil predominance and negative crystal analysis, with an effusion, slightly restricted ROM, mild warmth and no redness or drainage. The concern here is for an acute septic joint. Lower on the differential would be a false negative for pseudogout although these diagnoses can be concomitant. Also on ddx gout, reactive effusion or other causes. The risk here with treating this conservatively would be missing a septic arthritis and subsequent damage to the cartilage and the rest of the knee. Surgical intervention would be relatively low risk and would help to achieve source control and protect the cartilage from further damage by possible septic arthritis. Discussed the pros and cons risk benefits of nonoperative versus surgical intervention which would be in the form of left knee arthroscopy, irrigation and debridement. I recommend an acute irrigation debridement. The patient wished to go ahead with surgery made n.p.o. the patient has been started on IV antibiotics as we already have a sample. I have called and mobilized the call team as well as anesthesia shortly after I was called. I talked to Dr. Oneil as well as the house parent at / around 1:45 PM and stressed the emergency nature of this case E1/JAMES. I also explained that to the patient and his family and nursing staff also aware. As soon as the call team arrives we will transfer the patient directly from the emergency department to the OR holding area. The left knee marked this on the consent form for surgery possible need for blood products as well. Pros and cons risks and benefits were discussed with the patient including but not limited to infection, pain, stiffness, bleeding, damage to surrounding structures, neurovascular injury, recurrence or retear, failure or wear of hardware or fixation, instability, fracture, deep vein thrombosis and pulmonary embolism, anesthetic risks, , patient dissatisfaction, need for further surgery and other risks. Patient understood and wished to proceed with surgery, and signed the informed consent documentation. (2) Septic arthritis of knee, left:
--- NOTE | 2025-05-17 14:44 | PCM.HP.STD ---
HPI - General General Date of Admission: 05/17/25 Date of Service: 05/17/25 Chief Complaint: Worsening left knee pain with swelling HPI Narrative ESTEBAN JAMISON, is a 69 M who presented to [facility] ED on 05/17/2025 with worsening left knee pain with swelling. Medical history is significant for CAD with stenting, hypertension, diabetes and tobacco use. He presented with both left knee pain and swelling and atraumatic low back pain. Lumbar spine x-ray showed degenerative disease with no acute findings and it was suspected that the low back pain was musculoskeletal in nature. However, the knee x-ray showed mild to moderate degenerative changes with chondrocalcinosis, moderate soft tissue edema and a large joint effusion. Had arthrocentesis of the left knee done in the ED. Notably had low-grade fever, WBC count 17 and increased ESR and CRP, and synovial fluid aspiration showed 1+ Gram stain as well as 15,000 white blood cell count with 70% neutrophil predominance and negative crystal analysis. Case was discussed with Dr. Gonzales with orthopedics who noted that there was concern for acute septic joint and recommendation was for urgent surgical intervention. He had a full diagnostic arthroscopy done this afternoon that showed a small joint effusion, minor amount of synovitis and chondrocalcinosis noted. Per Dr. Gonzales's note, does not appear there was any cailin purulence or severe signs of infection noted. Knee was irrigated thoroughly and debrided during the procedure as well. He was taken to the PACU postoperatively in stable condition. Hospitalist was then contacted to admit the patient. I saw the patient at bedside on [facility] shortly after he arrived up there. Patient was sitting back comfortably in bed, conversing normally, in no acute distress. Noted that he did have some left knee pain after the procedure but had just been given doses of oxycodone and Tylenol and had moderate improvement of the pain with this. He denied any back pain currently. Had just eaten his dinner without issue. No other acute concerns at this time. FORMERLY [facility] Medical History Diabetes High cholesterol Back pain Gastric reflux Smoker Cardiology follow-up encounter Presence of stent in coronary artery (~08/2008) Essential hypertension Ventral incisional hernia without obstruction or gangrene Hyperlipidemia Acute [place], anterior wall, subsequent episode of care Old myocardial infarction Syncope and collapse Dyspnea Chest pain Long-term use of high-risk medication Atherosclerotic heart disease of [place] coronary artery without angina pectoris Home Medications ?Medication ?Instructions ?Recorded ?Last Taken ?Type fenofibrate 160 mg tablet 160 mg PO DAILY #30 tabs 12/17/18 05/16/25 Rx rosuvastatin 40 mg tablet (Crestor) 40 mg PO DAILY 06/05/19 05/17/25 History lisinopril 40 mg tablet 40 mg PO DAILY #90 tabs 12/13/21 05/17/25 Rx aspirin 81 mg tablet,delayed 81 mg PO DAILY 08/17/23 05/16/25 History release (Adult Aspirin Regimen) clopidogrel 75 mg tablet 75 mg PO DAILY #90 tabs 05/22/24 05/17/25 Rx ezetimibe 10 mg tablet 10 mg PO DAILY 05/17/25 05/17/25 History hydrocodone-acetaminophen 5-325mg 1 tab PO Q6H PRN PRN Pain 3 days 05/17/25 Unknown Rx 5mg-325mg #10 TABLETS metformin 500 mg tablet,extended 500 mg PO BID 05/17/25 05/17/25 History release 24 hr oxycodone-acetaminophen 5 mg-325 1 tab PO Q6H 05/17/25 05/16/25 History mg tablet pantoprazole 40 mg tablet,delayed 40 mg PO DAILY 05/17/25 05/17/25 History release Allergy/AdvReac Type Severity Reaction Status Date / Time atorvastatin calcium (From AdvReac Pain in Verified 05/17/25 09:30 Lipitor) joints Family History Father CAD (coronary artery disease) Diabetes Thyroid disorder Hypertension Cancer lung Mother Hypertension Aneurysm Brother CAD (coronary artery disease) Sister Congestive heart failure Surgical History History of ventral hernia repair (~08/2023) History of coronary artery stent placement History of cardiac catheterization History of cataract surgery Presence of coronary angioplasty implant and graft (~08/2008) History of umbilical hernia repair History of cholecystectomy (~02/2012) History of hernia repair History of tonsillectomy Social History Smoking Status: Current every day smoker tobacco type: cigarettes alcohol intake: current alcohol intake frequency: holidays/special occasions only substance use type: does not use caffeine: Yes ROS Constitutional Constitutional: Denies chills, fatigue, fever(s) or weakness Eyes Eyes: Denies change in vision Cardiovascular Cardiovascular: Denies chest pain Respiratory/Chest Respiratory/Chest: Denies shortness of breath at rest Gastrointestinal Gastrointestinal: Denies abdominal pain Genitourinary Genitourinary: Denies dysuria Musculoskeletal Musculoskeletal: Reports joint pain; Denies arthralgias or myalgias Neurologic Neurologic: Denies dizziness, focal weakness or headache(s) Vital Signs Vital Signs Vital Signs: 05/17/25 09:30 05/17/25 13:30 05/17/25 13:47 Temperature 98.1 F 97.8 F Temperature Source Temporal Oral Pulse Rate 93 78 86 Respiratory Rate 14 18 16 Blood Pressure 184/94 H 178/84 H 188/85 H Blood Pressure Mean 124 115 119 Blood Pressure Source Monitor Blood Pressure Position Semi-Fowlers Blood Pressure Location Left Arm Pulse Ox 99 99 100 Oxygen Delivery Method Room Air Room Air Room Air 05/17/25 14:19 Temperature 97.8 F Temperature Source Pulse Rate 81 Respiratory Rate 18 Blood Pressure 179/81 H Blood Pressure Mean 113 Blood Pressure Source Blood Pressure Position Blood Pressure Location Pulse Ox 99 Oxygen Delivery Method Weight Weight: 78.4 kg Body Mass Index (BMI) 27.8 Physical Exam Const alert, oriented x3, no apparent distress, average body habitus, healthy appearing and well nourished Constitutional Narrative: Upper middle-aged male, sitting back comfortably in bed, conversing normally, in no acute distress. General Appearance: cooperative, comfortable, well kempt and well developed HEENT normocephalic, head/scalp atraumatic, hearing grossly normal bilaterally, nasal mucous membranes and turbinates normal and moist oral mucous membranes Eyes PERRL, EOMs intact bilaterally and conjunctivae normal Neck full ROM Chest inspection of chest normal Resp normal respiratory effort, normal air movement, no use of accessory muscles and clear to auscultation bilaterally Cardio regular rate, regular rhythm, no murmurs and peripheral pulses 2+ throughout GI normal to inspection, nondistended, normoactive bowel sounds, soft to palpation, non-tender and non-distended Back/Spine normal ROM Extremity Extremity Narrative: Left knee with Donta wrap in place. Skin no rashes or lesions noted Neuro moves all extremities and no focal motor deficits Speech: speech normal Motor Exam: strength 5/5 throughout Psych mental status grossly normal Results Lab / Micro Data 05/17/25 09:50 05/17/25 09:50 Labs: Laboratory Results - last 24 hr 05/17/25 09:50: WBC 17.5 H, RBC 5.43, Hgb 15.5, Hct 46.6, MCV 85.8, MCH 28.5, MCHC 33.3, RDW Std Deviation 44.8 H, RDW Coeff of Kranthi 14.3, Plt Count 297, MPV 9.1, Immature Gran % (Auto) 0.200, Neut % (Auto) 51.0, Lymph % (Auto) 37.9, [place] % (Auto) 9.4, Eos % (Auto) 1.0, Baso % (Auto) 0.5, Absolute Neuts (auto) 8.9 H, Absolute Lymphs (auto) 6.61 H, Nucleated RBC % 0, ESR 45 H, Sodium 135, Potassium 4.0, Chloride 101, Carbon Dioxide 20.2 L, Anion Gap 14, BUN 12, Creatinine 0.87, Estim Creat Clear Calc 80.05, Est GFR (MDRD) Non-Af 94, BUN/Creatinine Ratio 13.7, Glucose 112 H, Calcium 9.6, Total Bilirubin 0.47, AST 19, ALT 9, Alkaline Phosphatase 66, C-React Prot Ext Range 19.80 H, Total Protein 7.1, Albumin 4.0, Globulin 3.1, Albumin/Globulin Ratio 1.3 05/17/25 11:32: Fluid Crystals NO CRYSTALS SEEN, Fluid Crystal Source SYNOVIAL, Fl Crystal Path Review Will follow, Synovial Source LT KNEE, Synovial Color Yellow, Synovial Appearance Cloudy, Synovial Viscosity Mod. Viscous, Synovial WBC 15.3600 H, Synovial RBC 0.008 H, Synovial Tot Cell Ct 15.3980 H, Synov Polynuclear WBCs 11.969, Synov Mononuclear WBCs 1.353, Synovial Neutrophils 73 H, Synovial Lymphocytes 1, Synovial Monocytes 26, Synovial Polynuclear % 89.8, Synovial Mononuclear % 10.2, Synovial Path Comment May follow Micro: Microbiology 05/17/25 11:32 Fluid - Synovial (joint) Gram Stain - Final Imaging Radiology Impression Knee X-Ray 05/17/25 11:10 IMPRESSION: No acute fracture or dislocations. Mild to moderate degenerative changes of the left knee with chondrocalcinosis. Moderate soft tissue edema. Large joint effusion. No radiographic foreign body. Reading Location: [facility] Lumbar Spine X-Ray 05/17/25 11:10 IMPRESSION: No acute process identified. Degenerative disc disease Reading [facility] Assessment & Plan Assessment/Plan (1) Septic arthritis of knee, left: PLAN: Plan Patient is a 69-year-old male who presented [facility] ED on 05/17/2025 with worsening left knee pain with swelling. 1. Concern for left knee septic arthritis ? Admit under inpatient status to [facility]. Orthopedic surgery following. Infectious disease consulted. PT/OT/case management consulted. Presented with worsening swelling and pain with motion for few days. Knee x-ray showed mild to moderate degenerative changes with chondrocalcinosis, moderate soft tissue edema and a large joint effusion. Arthrocentesis done in the ED, fluid studies showed 1+ Gram stain, 15K WBCs with 70% neutrophils and negative crystals. Also had low-grade fever, WBC count 17 and increased ESR and CRP. S/p full diagnostic arthroscopy that showed small joint effusion, minor amount of synovitis and chondrocalcinosis; per Dr. Gonzales's note, does not appear there was any cailin purulence or severe signs of infection noted. Will treat with IV vancomycin and ceftriaxone for now. Pain control with Tylenol, oxycodone and IV Dilaudid as needed. Appreciate further surgery recommendations. 2. Mild acute on chronic low back pain ? Presenting with atraumatic worsening of chronic low back pain. Lumbar x-ray showed chronic degenerative changes with no acute concerns. Treat conservatively with pain medications as above. 3. History of CAD with stenting, hypertension, hyperlipidemia ? History of stenting back in 2007. Continue home aspirin, Zetia, fenofibrate, statin, and lisinopril. Will hold Plavix for now, appreciate orthopedic surgery recommendations on timing of restarting this. 4. Type 2 diabetes mellitus ? A1c 7.1%. Glucose 112 on admit. Hold home metformin. Will treat with sliding scale insulin with meals while inpatient, adjust as needed. 5. GERD ? Continue home PPI. 6. Tobacco abuse ? Current smoker. Denied need for nicotine replacement therapy while inpatient. Discussed cessation on discharge. DVT prophylaxis: Lovenox CODE STATUS: Full code, verified Expected disposition: TBD Total clinical time spent by myself addressing the patient's medical issues, reviewing all the data, and collaborating with patient's care team: 75 minutes. Charges/Coding Visit Charges Inpatient E&M: 39225 Init Hosp L3
--- NOTE | 2025-05-17 14:45 | CASEMGMT ---
Care Management Face to Face with patient for initial transition planning/care coordination assessment in the ED.? This curriculum writer introduced self and role at [facility]. Patient alert and oriented. Patient willing to participate in assessment and is able to answer all questions appropriately.? Care providers, pharmacy, and demographics verified. Also at patient?s bedside were his son, Luke, of [place], (same park and lives next to patient), patient?s daughter, Lisa, of [place] and patient?s grandson, Samuel. Admitting Diagnosis: Chondrocalcinosis of left knee Other diagnosis history: Including but not limited to: Diabetes, High Cholesterol, Gastric Reflux, Smoker, Presence of stent in coronary artery (around 08/2008), Essential Hypertension, Ventral incisional hernia without obstruction or gangrene, Hyperlipidemia, Old Myocardial Infarction and Syncope and collapse. PCP: Dr. Alex Abbasi Specialists: None currently however patient stated that his PCP just made a referral to a deck supervisor however patient unable to recall details including name and/or location. Preferred Pharmacy: [facility] Insurance: Medicare Dual Advantage/[employer] with [facility] as secondary. Prescription Benefit: Yes Living Will/HPOA: No and not interested. ? LNOK: Patient?s , Lauren, and patient?s daughter, Lisa and son, Luke, both of [place]. Living Arrangements: Patient currently lives in a mobile home with his , his grandson, Samuel and Samuel?s girlfriend. Patient stated there are 3 steps leading in/out of the home with a handrail which patient stated he is able to ambulate without difficulty. Patient denied any environmental barriers at this time and reported that he is independent with his ADL?s and IADL?s. Transportation: Patient drives DME: Quad cane, grab bar by the toilet and in the shower, shower chair and a HHS. HHC: Denied. SNF/Rehab: Denied. Community Resources: Denied Behavioral Health History: Denied Patient goals: Patient wishes to discharge home when medically ready, and denies need for home health care at this time. Patient denies any further needs or concerns at this time. Disposition Plan: admission to acute; RN CM/SW to follow for discharge planning needs that may arise. Pat Montelongo, VICE PRESIDENT QUALITY, LEAD PRINTER
--- NOTE | 2025-05-17 14:47 | PRE.ANES_ITS ---
ASA Classification* ASA Classification ASA Classification: 3 and E Assessment & Plan Anesthesia* Anesthesia Assessment Anesthesia Assessment: Discussed sedation and/or anesthesia options, risks, benefits, and alternatives with patient/parents/legal guardian/POA. Questions invited. The patient/parents/legal guardian/POA seems to understand and agrees to proceed with anesthesia plan. Reviewed the physical assessment, medical history, allergy history and patient home medications list prior to surgery/procedure/anesthetic and documented any changes. Performed airway and anesthesia risk assessments. Anesthesia Type Anesthesia Type: General History Source History Obtained from:: Patient and Chart Anesthesia Focused Assessment* Temperature: 97.8 F Pulse Rate: 81 Blood Pressure: 179/81 Respiratory Rate: 18 Pulse Ox: 99 Oxygen Delivery Method: Room Air Airway Assessment Mouth opens: >3 cm Mallampati Score: III Teeth Condition: Dentures (Patient is full top dentures.) and Missing (Patient is edentulous on the bottom.) Neck Range of motion (ROM): Limited ROM (Slight decrease in extension) Labs Anesthesia Preop lab: CBC WBC 17.5 K/mm3 (4.4-11.0) H 05/17/25 09:50 5 RBC 5.43 M/mm3 (4.6-6.2) 05/17/25 09:50 05/17/25 Hgb 15.5 g/dL (13.0-16.5) 05/17/25 09:50 05/17/25 Hct 46.6 % (40-54) 05/17/25 09:50 05/17/25 Plt Count 297 K/mm3 (150-450) 05/17/25 09:50 05/17/25 CHEMISTRY Potassium 4.0 mmol/L (3.3-5.1) 05/17/25 09:50 05/17/25 Sodium 135 mmol/L (133-145) 05/17/25 09:50 05/17/25 BUN 12 mg/dL (4-19) 05/17/25 09:50 05/17/25 Creatinine 0.87 mg/dL (0.70-1.20) 05/17/25 09:50 05/17/25 Glucose 112 mg/dL (70-99) H 05/17/25 09:50 05/17/25 POC Glucose 119 mg/dL (74-106) H 08/28/23 14:12 08/28/23 COAG Pre-Assessment Diagnosis/Proposed Procedure Planned Operative Procedure(s): Irrigation and debridement of left knee. 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 When Was Last Pacemaker Check QUESTION #4 FULL TEXT: You/Your Family Experience fever (hyperthermia) with Anesthesia Last Oral Intake Last Oral intake: Last Oral Intake NPO since Meds taken in AM with sips of water? Meds patient instructed to take am of surgery Any additional information?: Yes NPO since: 13:00 Meds taken in AM with sips of water?: Yes PONV PONV - geothermal operations manager: PONV - geothermal operations manager Female HX of Motion Sickness HX of N/V After Surgery Non-Smoker Duration of Surgery greater than 60 minutes Number of Risk Factors PONV Score Height & Weight Height & Weight: Anesthesia: Height & Weight Height 5 ft 6 in 05/17/25 13:47 Weight: 78.4 kg 05/17/25 13:47 Body Mass Index (BMI) 27.8 05/17/25 13:47 Respiratory Assessment Respiratory Assessment - geothermal operations manager: Respiratory Tract Infection Hx - geothermal operations manager Hx Respiratory Tract Infection No 05/17/25 13:47 STOP Sleep Apnea STOP Sleep Apnea - geothermal operations manager: STOP Sleep Apnea - geothermal operations manager Hx Hypertension Yes 05/17/25 13:47 Hx Sleep Apnea No 05/17/25 13:47 CPAP No 08/28/23 14:11 BIPAP No 05/12/16 14:14 Do you snore loudly (louder No 05/17/25 13:47 than talking or can be heard Do you often feel tired/ Yes 05/17/25 13:47 fatigued/ sleepy during daytime? Has anyone observed you stop No 05/17/25 13:47 breathing during sleep? STOP Results Positive 05/17/25 13:47 QUESTION #5 FULL TEXT : Do you snore loudly (louder than talking or can be heard through closed doors)? Tobacco Use History Tobacco Use History - geothermal operations manager: Tobacco Use History - geothermal operations manager Tobacco Use Smoking Status Current every day smoker 05/17/25 09:45 Hx Tobacco Use Yes 08/17/23 08:15 Years Smoking Packs Smoked per Day Smoking Cessation Date was within the last 15 years Hx Smoking Cessation Date Hx Smoking Cessation Counseling Hematologic Medial History Hematologic Hx - geothermal operations manager: Hematologic Medical Hx - inclinometer tester Hx of Blood Transfusion Hx of Transfusion in last 3 Months Date of Last Transfusion (if within last 3 months) Ever experience any problems with transfusion(s)? Specify any problems Hx of Preganancy in last 3 Months Nurse Filling Out Transfusion & Questions: Date: Time: Patient unable to answer at this time (ie. confused, unrespo /Reproduction History /Reproductive History - geothermal operations manager: /Reproductive Hx- geothermal operations manager Hx Now No 05/17/25 13:47 Gestational Age (in weeks): EDC: Hx Hx Para Hx Section SAB No 05/17/25 13:47 PFSH Medical History Diabetes High cholesterol Back pain Gastric reflux Smoker Cardiology follow-up encounter Presence of stent in coronary artery (~08/2008) Essential hypertension Ventral incisional hernia without obstruction or gangrene Hyperlipidemia Acute SC, anterior wall, subsequent episode of care Old myocardial infarction Syncope and collapse Dyspnea Chest pain Long-term use of high-risk medication Atherosclerotic heart disease of [place] coronary artery without angina pectoris Home Medications ?Medication ?Instructions ?Recorded ?Last Taken ?Type fenofibrate 160 mg tablet 160 mg PO DAILY #30 tabs 05/16/25 Rx rosuvastatin 40 mg tablet (Crestor) 40 mg PO DAILY 09/1405/17/25 History lisinopril 40 mg tablet 40 mg PO DAILY #90 tabs 11/2705/17/25 Rx aspirin 81 mg tablet,delayed 81 mg PO DAILY 08/17/23 0 05/16/25 History release (Adult Aspirin Regimen) clopidogrel 75 mg tablet 75 mg PO DAILY #90 tabs 04/2805/17/25 Rx ezetimibe 10 mg tablet 10 mg PO DAILY 05/17/2504/28 History hydrocodone-acetaminophen 5-325mg 1 tab PO Q6H PRN PRN Pain 3 days 05/17/25 Unknown Rx 5mg-325mg #10 TABLETS metformin 500 mg tablet,extended 500 mg PO BID 5 05/17/25 History release 24 hr oxycodone-acetaminophen 5 mg-325 1 tab PO Q6H 05/17/25 05/16/25 History mg tablet pantoprazole 40 mg tablet,delayed 40 mg PO DAILY 05/1705/17/25 History release Allergy/AdvReac Type Severity Reaction Status Date / Time atorvastatin calcium (From AdvReac Pain in Verified 05/17/25 09:30 Lipitor) joints Family History Father CAD (coronary artery disease) Diabetes Thyroid disorder Hypertension Cancer lung Mother Hypertension Aneurysm Brother CAD (coronary artery disease) Sister Congestive heart failure Surgical History History of ventral hernia repair (~08/2023) History of coronary artery stent placement History of cardiac catheterization History of cataract surgery Presence of coronary angioplasty implant and graft (~08/2008) History of umbilical hernia repair History of cholecystectomy (~02/2012) History of hernia repair History of tonsillectomy Social History Smoking Status: Current every day smoker tobacco type: cigarettes alcohol intake: current alcohol intake frequency: holidays/special occasions only substance use type: does not use caffeine: Yes Review of Systems (Anesthesia) ROS Narrative System reviewed and no additional complaints, except as documented.
[2025-05-17] MEDS: Vancomycin HCl 1,250 MG in 0.9% Normal Saline (250mL Bag) 250 ML 167 MG IV (15:27)
[2025-05-17] MEDS: Bupivacaine 0.25% 30 ML Vial (15:40)
[2025-05-17] MEDS: Epinephrine (1 mg/ml) 1 MG/ML VIAL (15:41)
--- NOTE | 2025-05-17 15:45 | PCM.OPRPT ---
Problems Associated Problem List Diagnoses (1) Septic arthritis of knee, left: (2) Chondrocalcinosis of left knee: Procedures Musculoskeletal [id number]: Other Procedure See Report Operative Report (Standard) Operative Information Date of Procedure: 05/17/25 Pre-Operative Diagnosis: Left septic knee as well as chondrocalcinosis Post-Operative Diagnosis: Same Surgery/Procedure Performed: Left surgery irrigation and debridement, extensive, removal loose body courtesy car driver: No Type of Anesthesia: General and Local RN Documented Start/Stop Times: Operation Date: 05/17/25 15:20 Case Time Anesthesia Start 05/17/25 15:05 Into Room 05/17/25 15:05 Procedure Start 05/17/25 15:25 Procedure End 05/17/25 15:42 Procedure Start Time: 15: Procedure Stop Time: 15:42 Select all DRAINS/GRAFTS/IMPLANTS that apply: None Estimated Blood Loss: 10 Specimen collected: No Description of surgery: Patient brought the operating room theater. Placed supine on the table. General anesthesia induced. The patient had received ceftriaxone previously in the emergency department as well as vancomycin mid way through the case I had ordered this preoperatively that was the soonest the patient could receive that. All bony prominences padded. SCD on the nonoperative leg. Tourniquet applied to left thigh a stress positioner used the patient's left side. Lower extremity prepped and draped in the usual sterile fashion with chlorhexidine-based prep solution allowing over 3 minutes drying time prior to draping. Preoperative timeout performed to confirm the site patient and the surgery. Began by elevating the limb inflating the tourniquet to 250 mmHg. Use standard anterolateral and anteromedial arthroscopy portals. Did a full diagnostic arthroscopy. Pictures saved throughout. Did a debridement synovectomy in all 3 compartments. There is a medial sided plica I debrided that. Underneath this there was some grade 2 cartilage changes on the distal medial femoral condyle. Cartilage in the medial side had grade 1-2 changes grade 1 changes only on the lateral side. Patellofemoral joint had grade 2-3 changes. There is chondrocalcinosis in all 3 compartments I removed any calcium deposits that I was able to visualize and appropriately remove. The medial and lateral meniscus appear normal stable to probing. The ACL was normal I remove the ligamentum mucosum. There is a loose body developing in the anterior prepatellar fat pad I removed this as well. There is a minor amount of synovitis. There is a small joint effusion when I initially put in the arthroscope. I thoroughly irrigated and debrided the knee in all 3 compartments with 6 L of normal saline. Case was terminated meticulous hemostasis achieved tourniquet let down. Wounds cleaned with wet dry dressing close with the portal sites with 3-0 Monocryl. This was followed by instillation of 10 cc of quarter percent bupivacaine in and around the incision sites. Steri-Strips Adaptic 4 x 4 gauze ABD dressing with Donta wrap loosely wrapped around the knee was then placed. Patient woken up from general anesthetic transferred off the operating table taken postanesthetic. In stable condition. All sponge needle instrument counts were correct no complications. Plan for the patient admitting under medicine (Dr. Noble disla already) PT OT social work to see weightbearing as tolerated range of motion as tolerated VTE prophylaxis per the hospitalist and recommend IV broad spec antibiotics until the cultures are back and they may be tailored and stepdown eventually as well as daily blood work to follow the inflammatory markers. I am happy to follow patient as an outpatient change dressing every 1 to 2 days try to avoid getting the incisions wet. CPT 51842, 03438 Surgical Findings: As above Complications Complications: No Admit VTE Documentation VTE Present on Admission: No VTE Mechan Device Prophylaxis: SCD's VTE Pharm Prophylaxis ordered?: No Reason prophylaxis not ordered: Treatment Not Indicated
--- NOTE | 2025-05-17 15:57 | PCM.POST.ANE ---
Anesthesia: Postop Eval I Current Vital Signs Temperature: 97.3 F Pulse Rate: 85 Blood Pressure: 128/66 Respiratory Rate: 16 Pulse Ox: 100 Oxygen Delivery Method: Room Air Assessment Airway patent: Yes Spontaneous unlabored respirations: Yes Mental status: Awake and Calm nausea: No Vomiting: No Anesthesia Complication: No Fluid Hydration Crystalloid volume administer (ml): 300 Total IV fluid infused: 300 Progress Note Anesthesia document: Postop Eval 1 completed: Yes
--- NOTE | 2025-05-17 16:17 | PCM.POSTANE2 ---
Anesthesia Postop Eval I Sum Postop Eval Completion status Anesthesia document: Postop Eval 1 completed: Yes Anesthesia Postop Eval I Summary Anesthesia Postop Eval I Summary: Anesthesia Postop Eval I: Assessment Summary Airway patent Yes 05/17/25 16:00 Spontaneous unlabored Yes 05/17/25 16:00 respirations Mental status Awake,Calm 05/17/25 16:00 nausea No 05/17/25 16:00 Vomiting No 05/17/25 16:00 Anesthesia Postop Eval I: Fluid Summary Crystalloid volume administer 300 05/17/25 16:00 (ml) Colloids volume administered ( ml) Blood Product volume administered (ml) Total IV fluid infused 300 05/17/25 16:00 Anesthesia Postop Eval I: Summary Notes Anesthesia Complication No 05/17/25 16:00 Anesthesia Complication Comment: Post-operative progress note Anesthesia: Postop Eval II Evaluation Mental status: Awake and Calm Pain Level: 1 nausea: No Vomiting: No Complications Anesthesia Complication: No
--- OUTSIDE RECORDS SUMMARY | 2025-05-17 16:40 | XMS RPT_ITS | CCD ---
Author Organization [facility]iniSynm Care Team Providers Care Patient Coordinator Name Role Phone Augusta Evans Unavailable CAMDEN BRIONES DO Primary Care Physician [phone] CAMDEN BRIONES DO Primary Care Physician [phone] Dr. Camden Briones Primary Care Provider Dr. Camden Briones Referring Provider [phone] Parag MORGAN, SOL Melchor Attending Provider Dr. Chary Fontaine Attending Provider Dr. Aaron Roy Attending Provider [phone] Dr. Camden Briones Primary Care Provider Dr. Camden Briones Referring Provider [phone] Dr. Jayesh Stein Referring Provider Dr. Chary Fontaine Referring Provider Dr. Chary Fontaine Other Provider CAMDEN BRIONES DO Attending Unavailable CAMDEN BRIONES DO Primary Care Unavailable CAMDEN BRIONES DO Attending Unavailable CAMDEN BRIONES DO Primary Care Unavailable Camden Briones DO Primary Care Provider [phone] CAMDEN BRIONES DO Primary Care Unavailable CAMDEN BRIONES DO Attending Unavailable CAMDEN BRIONES DO Attending Unavailable CAMDEN BRIONES DO Primary Care Unavailable DR LOCO WILDE MD Attending Unavailabl e CAMDEN BRIONES DO Primary Care Unavailable Dr. Camden Briones DO Primary Care Provider [phone] Dr. Loco Wilde MD Attending Provider Dr. Loco Wilde MD Referring Provider Dr. Camden Briones DO Attending Provider Dr. Camden Briones DO Referring Provider Cecil Sterling Attending Unavailable Camden Briones Primary Care Unavailable Camden Briones Referring Unavailable Camden Brionse Primary Care Unavailable Loco Wilde Attending Unavailable Loco Wilde Referring Unavailable Camden Briones Primary Care Unavailable Camden Briones Attending Unavailable Camden Briones Referring Unavailable Dr. Camden Briones DO Primary Care Provider Dr. Mynor De Leon MD Emergency Provider [facility] [employer], [place] Primary Care Provider [phone] Dr. Erickson Robbins DO Attending Provider Dom Gonzales MD Other Provider Dom Gonzales MD Attending Provider [phone] Allergies Allergy Classification Reported Allergen(s) Allergy Type Date of Onset Reaction(s) Facility (2 sources) atorvastatin drug allergy 3 muscle aches [facility] Work Phone: (3 sources) NKA drug allergy 2 [facility] Work Phone: (2 sources) ezetimibe; Translations: [ezetimibe] Drug Allergy 4 Pounding heart (finding) [facility] (1 source) atorvastatin Drug Allergy 4 [facility] Repository Medications Current Medications Medication Drug Class(es) Dates Sig (Normalized) Sig (Original) acetaminophen 325 mg / HYDROcodone bitartrate 5 mg oral tablet (11 sources) Opioid Agonist Start: 05-17-2025 take 1 tablet by mouth every six hours as needed for pain Hydrocodone-Aceta minophen 5-325 mg tablet Active 1 {tbl} PO EVERY 6 HOURS NEEDED as needed for Pain 10 3 May 17, 2025 Start: 09-11-2013 End: 01-27-2014 HYDROCODONE-ACETAMINOPHEN 5- 500 MG TABS as needed HYDROCODONE-ACETAMINOPHEN [id number] Tramaine Black Start: 09-11-2013 HYDROCODONE-AC ETAMINOPHEN 5-500 MG TABS as needed HYDROCODONE-ACETAMINOPHEN [id number] Giles Peters MD take 1 tablet by varsha th every six hours as needed HYDROcodone-acetaminophen 5-325 mg per tablet Take 1 tablet by mouth every 6 hours as needed. Active acetaminophen 325 mg / oxyCODONE hydrochloride 5 mg oral tablet (9 sources) Opioid Agonist Start: 05-17-2025 Oxycodone-Acet aminophen 5-325 mg tablet Active 1 {tbl} PO EVERY 6 HOURS May 17, 2025 12:00am Start: 09-24-2024 End: 11-22-2024 take 1 tablet by mouth every six hours acetaminophen-oxyCODONE 325 mg-5 mg oral tablet Dose = 1 tab(s), Oral, q6hr, # 120 tab(s), 0 Refill(s), Pharmacy: [facility] #[id number], Cervical disc disease Chronic neck and back pain, 167.5, cm, 10/21/24 7:55:00 EST, Height, 76.2, kg, 10/21/24 7:55:00 EST, Dosing Weight Start Date: 10/23/24 Stop Date: 11/22/24 Status: Ordered Start: 01-29-2024 End: 02-28-2024 take 1 tablet by mouth every six hours acetaminophen-oxyCODONE 325 mg-5 mg oral tablet Dose = 1 tab(s), Oral, q6hr, # 120 tab(s), 0 Refill(s), Pharmacy: [facility] #[id number], Cervical disc disease, 75.1, cm, 11/01/23 10:58:00 [...] q6hr, # 120 tab(s), 0 Refill(s), Pharmacy: [facility] #[id number], Cervical disc disease, 168, cm, 11/02/22 10:04:00 EST, Height, 77.5, kg, 11/02/22 10:04:00 EST, Dosing Weight Start Date: 11/02/22 Stop Date: 12/02/22 Status: Ordered Start: 11-01-2021 End: 12-01-2021 take 1 tablet by mouth every six hours acetaminophen-oxyCODONE 325 mg-5 mg oral tablet Dose = 1 tab(s), Oral, q6hr, # 100 tab(s), 0 Refill(s), Pharmacy: [id number], Cervical disc disease, 168, cm, 08/04/21 13:17:00 EDT, Height, 80.7, kg, 08/04/21 13:17:00 EDT, Dosing Weight Start Date: 11/01/21 Stop Date: 12/01/21 Status: Ordered aspirin 81 mg delayed release [...] TABS One tablet by mouth daily ASPIRIN [id number] Giles Peters MD Start: 09-23-2008 take 1 dose by mouth once lauri y aspirin Dose : 81 mg =, PO, Daily, 0 Refill(s), current med (Hx) Start Date: 09/23/08 Status: Ordered Start: 09-23-2008 aspirin 81 mg, PO, Daily, 0, 0 Start Date: 09/23/08 Status: Ordered cephalexin 500 mg oral capsule (8 sources) Cephalosporin Antibacterial Start: 09-03-2019 take 1 capsule by mouth four times daily cephALEXin (KEFLEX) 500 mg capsule Take 1 capsule by mouth four times daily. 28 capsule 09/03/2019 Active 1 ml evolocumab 140 mg/ml prefilled syringe (2 sources) PCSK9 Inhibitor Start: 08-14-2024 End: 2025 inject 1 dose by subcutaneous injection every other week Repatha Prefilled Syringe 140 mg/mL subcutaneous solution Dose : 140 mg =, Subcutaneous, q2wk, # 2 EA, 11 Refill(s), Pharmacy: [facility] #[id number], Hyperlipidemia, 167.5, cm, 08/14/24 13:01:00 EDT, Height, kg, 08/14/24 13:01:00 EDT, Dosing Weight Start Date: 08/14/24 Stop Date: 07/16/25 Status: Ordered ezetimibe 10 mg oral tablet (4 sources) Dietary Cholesterol Absorption Inhibitor Start: 05-17-2025 take 1 tablet by mouth once daily Ezetimibe 10 mg tablet Active 10 mg PO DAILY May 17, 2025 12:00am Start: 05-12-2011 End: 02-13-2012 take 1 tablet by mouth once daily ZETIA 10 MG TABS One tablet by mouth daily EZETIMIBE [id number] Giles Peters MD hydroCHLOROthiazide 12.5 mg / lisinopril 10 mg oral tablet (8 sources) Thiazide Diuretic, Angiotensin Converting Enzyme Inhibitor take 1 tablet by mouth once daily lisinopril-hydrochlorothiazide 10-12.5 mg per tablet Take 1 tablet by mouth once daily. Active lisinopril 40 mg oral tablet (20 sources) Angiotensin Converting Enzyme Inhibitor Star t: 02-25 End: 08-16 take 1 tablet by mouth once daily Lisinopril 40 mg tablet Active 40 mg PO DAILY December 13, 2021 10:15am Start: 05-12-2011 End: 03-09-2021 take 1 tablet by mouth once daily Lisinopril 20 mg tablet Discontinued 20 mg PO DAILY December 11, 2020 1:39pm Justine 13th, 2021 3:00pm 24 hr metFORMIN hydrochloride 500 mg extended release oral tablet (20 sources) Biguanide Start: 05-17-2025 take 1 tablet by mouth twice daily Metformin 500 mg tablet extended release 24 hr Active 500 mg PO TWICE A DAY May 17, 2025 12:00am Start: 02-04-2014 End: 05-17-2025 take 1 tablet by mouth once daily Metformin 500 MG tablet Discontinued 500 mg PO DAILY February 04, 2014 12:00am May 17, 2025 9:36am Start: 02-04-2014 End: 06-05-2025 metFORMIN 500 mg oral tablet EXTENDED RELEASE Dose : 500 mg = 1 tab(s), Oral, BID, # 200 tab(s), 3 Refill(s), [id number], 167.5, cm, 05/01/24 11:04:00 EDT, Height, kg, 05/01/24 11:04:00 EDT, Dosing Weight Start Date: 05/01/24 Stop Date: 06/05/25 Status: Ordered nitroglycerin 0.4 mg sublingual spray (1 source) Start: 09-23-2008 nitroglycerin 0.4 mg sublingual spray 1 spray(s), SL, q5min, 15 g, 0, 0, as needed only Start Date: 09/23/08 Status: Ordered pantoprazole 40 mg delayed release oral tablet (3 sources) Proton Pump Inhibitor Start: 05-17-2025 take 1 tablet by mouth once daily Pantoprazole 40 mg tablet,delayed release (DR/EC) Active 40 mg PO DAILY May 17, 2025 12:00am Start: 09-10-2024 pantoprazole 4 0 mg oral enteric coated tablet Dose : 40 mg = 1 tab(s), Oral, qDay, # 90 tab(s), 3 Refill(s), Pharmacy: [facility] #[id number], Esophageal reflux disease, 167.5, cm, 08/14/24 13:01:00 EDT, Height, kg, 08/14/24 13:01:00 EDT, Dosing Weight Start Date: 09/10/24 Status: Ordered rosuvastatin calcium 40 mg oral tablet (12 sources) HMG-CoA Reductase Inhibitor Start: 06-05-2019 End: 12-05-2024 take 1 tablet by mouth once daily Rosuvastatin (Crestor) 40 mg tablet Active 40 mg PO DAILY June 05, 2019 12:00am CRESTOR 40 MG TA BS ROSUVASTATIN CALCIUM [id number] ARABELLA BanksC take 1 tablet by mouth once lauri y CRESTOR TABS One tablet by mouth daily ROSUVASTATIN CALCIUM TABS [id number] Tramaine Germain Sofia Completed/Discontinued Medications Medication Drug Class(es) Dates Sig (Normalized) Sig (Original) 1 ml alirocumab 75 mg/ml auto-injector (1 source) PCSK9 Inhibitor Start: 08-04-2021 inject 1 mL by subcutaneous injection every other week Praluent Pen 75 mg/mL subcutaneous solution Dose : 75 mg = 1 mL, Subcutaneous, q2wk, # 2 mL, 11 Refill(s), Pharmacy: [facility], 168, cm, 08/04/21 13:17:00 EDT, Height, kg, 08/04/21 13:17:00 EDT, Dosing Weight Start Date: 08/04/21 Status: Ordered amLODIPine 10 mg oral tablet (6 sources) Dihydropyridine Calcium Channel Antonio Start: 05-01-2024 End: 06-05-2025 take 1 tablet by mouth once daily Amlodipine 10 mg tablet Discontinued 10 mg PO DAILY May 17, 2025 12:00am May 17, 2025 9:47am Start: 11-02-2022 amLODIPine 10 mg oral tablet Dose : 10 mg = 1 tab(s), Oral, qDay, # 90 tab(s), 3 Refill(s), [facility]acy: [facility] #[id number], 168, cm, 11/02/22 10:04:00 EST, Height, kg, 11/02/22 10:04:00 EST, Dosing Weight Start Date: 11/02/22 Status: Ordered Start: 11-03-2021 amLODIPine 10 mg oral tablet Dose : 10 mg = 1 tab(s), Oral, qDay, # 90 tab(s), 3 Refill(s), Pharmacy: [facility] [address], 168, cm, 11/03/21 11:40:00 EST, Height, kg, 11/03/21 11:40:00 EST, Dosing Weight Start Date: 11/03/21 Status: Ordered atorvastatin 40 mg oral tablet (8 sources) HMG-CoA Reductase Inhibitor Start: 09-15-2014 End: 11-29-2017 take 1 tablet by mouth once daily Atorvastatin 40 MG tablet Discontinued 40 mg PO DAILY May 12, 2016 12:00am November 29, 2017 8:55am Start: 03-25-2013 End: 04-04-2013 take 1 tablet by mouth once daily ATORVASTATIN CALCIUM 80 MG TABS One tablet by mouth daily ATORVASTATIN CALCIUM [id number] Giles Peters MD baclofen 10 mg oral tablet (7 sources) gamma-Aminobutyric Acid-ergic Agonist Start: 11-02-2022 End: 05-17-2025 take 1 tablet by mouth three times daily as needed Baclofen 10 mg tablet Discontinued 10 mg PO THREE TIMES A DAY as needed for MUSCLE SPA August 17, 2023 12:00am May 17, 2025 9:36am carvedilol 25 mg oral tablet (4 sources) alpha-Adrenergic Antonio, beta-Adrenergic Antonio Start: 09-11-2013 End: 01-27-2014 take 0.5 tablet by mouth twice daily COREG 25 MG TABS 1/2 tablet by mouth twice daily CARVEDILOL [id number] Giles Peters MD Start: 05-12-2011 End: 09-11-2013 take 1 tablet by mouth twice daily CARVEDILOL 25 MG TABS One tablet by mouth twice daily CARVEDILOL [id number] Giles Peters MD clopidogrel 75 mg oral tablet (20 sources) P2Y12 Platelet Inhibitor Start: 09-23-2008 End: 05-22-2024 take 1 tablet by mouth once daily Clopidogrel 75 mg tablet Discontinued 75 mg PO DAILY November 28, 2023 1:38pm May 22, 2024 10:54am Start: 09-23-2008 Plavix 75 mg, PO, Daily, 0, 0 Start Date: 09/23/08 Status: Ordered fenofibrate 160 mg oral tablet (20 sources) Peroxisome Proliferator Receptor alpha Agonist Start: 09-11-2013 End: 06-05-2025 take 1 tablet by mouth once daily Fenofibrate 160 mg tablet Discontinued 160 mg PO DAILY March 28, 2018 9:00am December 17, 2018 4:03pm hydroCHLOROthiazide 25 mg oral tablet (2 sources) Thiazide Diuretic Start: 03-10-2014 End: 03-31-2014 take 1 tablet by mouth once daily HYDROCHLOROTHIAZIDE 25 MG TABS One tablet by mouth daily HYDROCHLOROTHIAZIDE [id number] Paula Patterson RN meloxicam 7.5 mg oral tablet (2 sources) Nonsteroidal Anti-inflammator y Drug Start: 03-18-2013 End: 09-11-2013 take 1 tablet by mouth once daily MOBIC 7.5 MG TABS One tablet by mouth daily MELOXICAM [id number] Spring Macedo RN nitroglycerin 0.4 mg sublingual tablet (20 sources) Nitrate Vasodilator Start: 03-10-2014 End: 05-17-2025 Nitroglycerin 0.4 mg tablet, sublingual Discontinued 0.4 mg SL Q5M as needed for Chest Pain March 28, 2018 9:00am December 17, 2018 4:03pm Start: 05-12-2011 NITROGLYCERIN 0.4 MG/HR PT24 1 tablet under tongue every 5 min up to 3 X NITROGLYCERIN [id number] Giles Pteers MD Start: 09-23-2008 nitroglycerin 0.4 mg sublingual [...] # 2 mL, 11 Refill(s), Pharmacy: [facility] [address], 168, cm, 08/04/21 13:17:00 EDT, Height, kg, 08/04/21 13:17:00 EDT, Dosing Weight Start Date: 08/04/21 Status: Ordered pravastatin sodium 80 mg oral tablet (1 source) HMG-CoA Reductase Inhibitor take 1 tablet by mouth once daily PRAVASTATIN SODIUM 80 MG TABS One tablet by mouth daily PRAVASTATIN SODIUM [id number] Giles Peters MD simvastatin 80 mg oral tablet (1 source) HMG-CoA Reductase Inhibitor Start: 05-12-2011 take 1 tablet by mouth at bedtime SIMVASTATIN 80 MG TABS One tablet by mouth at bedtime. SIMVASTATIN [id number] Elmira Casas Problems Active Problems Problem Classification Problem Date Documented Da te Episodic/Chronic Abdominal hernia (20 sources) Incisional hernia; Translations: [Hernia of anterior [...] Chronic Coronary atherosclerosis and other heart disease (12 sources) Coronary arteriosclerosis; Translations: [Atherosclerotic heart disease of [place] coronary artery without angina pectoris] Onset: 1 05-12-2011 Chronic Diabetes mellitus without complication (6 sources) Diabetes mellitus; Translations: [Type 2 diabetes mellitus without complication] 05-19-2020 Chronic Diseases of white blood cells (10 sources) Leukocytosis; Translations: [Elevated white blood cell count, unspecified] Onset: 4 06-18-2024 Chronic Disorders of lipid metabolism (14 sources) Hyperlipidemia; Translations: [Mixed hyperlipidemia] Onset: 1 05-12-2011 Chronic Esophageal disorders (2 sources) Gastroesophageal reflux disease 08-14-2024 Chronic Esophageal disorders (1 source) Achalasia of cardia; Translations: [Achalasia of cardia] Onset: Episodic Essential hypertension (14 sources) Hypertensive disorder; Translations: [Essential hypertension] Onset: 1 05-12-2011 Chronic Gout and other crystal arthropathies (2 sources) Chondrocalcinosis of joint of left knee; Translations: [Other chondrocalcinosis, left knee] 05-17-2025 Chronic Infective arthritis and osteomyelitis (except that caused by tuberculosis or sexually transmitted disease) (2 sources) Knee pyogenic arthritis; Translations: [Pyogenic arthritis, unspecified] 05-17-2025 Episodic Miscellaneous mental health disorders (2 sources) Primary insomnia 05-01-2024 Chronic Nonspecific chest pain (6 sources) Chest pain, unspecified; Translations: [Chest pain] Onset: 1 05-12-2011 Episodic Other aftercare (5 sources) H/O: high risk medication; 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] 11-29-2017 Episodic Other gastrointestinal disorders (5 sources) Oropharyngeal dysphagia 02-03-2021 Episodic Other gastrointestinal disorders (2 sources) Dysphagia; Translations: [Dysphagia, unspecified] 11-12-2024 Episodic Other lower respiratory disease (6 sources) Dyspnea; Translations: [Dyspnea, unspecified] Onset: 1 05-12-2011 Episodic Other lower respiratory disease (2 sources) Cough 02-03-2021 Episodic Other lower respiratory disease (2 sources) Other nonspecific abnormal finding of lung field; Translations: [Other nonspecific abnormal finding of lung field] Onset: Episodic Other non-traumatic joint disorders (4 sources) Hip pain 11-02-2022 Episodic Other screening for suspected conditions (not mental disorders or infectious disease) (1 source) Encounter for screening for malignant neoplasm of prostate; Translations: [Screening for malignant neoplasm done] Episodic Peripheral and visceral atherosclerosis (1 source) Abdominal aortic atherosclerosis; Translations: [Atherosclerosis of aorta] 05-17-2025 Chronic Residual codes; unclassified (5 sources) Chronic pain 05-19-2020 Episodic Screening or history of mental health and substance abuse (1 source) Tobacco dependence syndrome; Translations: [Nicotine dependence, unspecified, uncomplicated] Onset: 1 05-12-2011 Chronic Spondylosis; intervertebral disc disorders; other back problems (11 sources) Cervical disc disorder; Translations: [Degeneration of lumbar intervertebral disc] 02-18-2020 Chronic Spondylosis; intervertebral disc disorders; other back problems (5 sources) Spasm of back muscles; Translations: [Acute low back pain] 11-02-2022 Episodic Substance-related disorders (13 sources) Nicotine dependence; Translations: [Nicotine dependence, unspecified, uncomplicated] 02-05-2020 Chronic Syncope (6 sources) Syncope and collapse; Translations: [Syncope and [...] Episodic Coronary atherosclerosis and other heart disease (8 sources) Coronary angioplasty status; Translations: [Stented coronary artery] Onset: 11-27-2007 05-12-2011 Episodic Comment on above: PTCA/OSCAR of the mid CFX 09/05; PTCA/OSCAR to prox LAD & CFX and PTCA to OM2 01/01; overlapping BMS to mid CFX 09/03 Malaise and fatigue (1 source) Fatigue; Translations: [Other fatigue] Onset: 05-12-2011 05-12-2011 Episodic Other aftercare (1 source) 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; 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] Onset: 05-12-2011 05-12-2011 Episodic [...] Resolved: 10-05-2015 03-17-2015 Episodic Residual codes; unclassified (2 sources) History of hernia repair; Translations: [Other specified postprocedural states] Onset: 11-27-2022 09-13-2023 Episodic Unclassified (1 source) FH: Hypertension; Translations: [Family history of ischemic heart disease and other diseases of the circulatory system] 09-15-2014 Episodic Results Test Name Value Interpretation Reference Range Facility Absolute lymphocyte countOrd ered By: Mynor De Leon on 05-17-2025 Lymphocytes Auto (Unsp spec) [#/Vol] 6.61 10*3/uL High 0.83-4.51 [facility] Absolute neutrophil countOrd ered By: Mynor De Leon on 05-17-2025 Neutrophils (Bld) [#/Vol] 8.9 10*3/uL High 2.0-7.7 [facility] Anion gap in Serum or Plasma Ordered By: Mynor De Leon on 05-17-2025 Anion gap [Moles/Vol] 14 mmol/L 5-15 [facility] Automated lymphocyte count a s percentage of total leukocytesOrdered By: Mynor De Leon on 05-17-2025 Lymphocytes/100 WBC Auto (Unsp spec) 37.9 % - [facility] Automated synovial fluid jonelle kocytes count (number/volume)Ordered By: Mynor De Leon on 05-17-2025 WBC Auto (Syn fld) [#/Vol] 15.3600 10^3/uL High 0.000-0.00 2 [facility] Automated synovial fluid mon onuclear cell count (number/volume)Ordered By: Mynorjames Shineo on 05-17-2025 Mononuclear cells Auto (Syn fld) [#/Vol] 1.353 10^3/ul [facility] Automated synovial fluid su ymorphonuclear cell count (number/volume)Ordered By: Mynor De Leon on 05-17-2025 Polymorphonuclear cells Auto (Syn fld) [#/Vol] 11.969 10^3/uL [facility] Automated synovial fluid su ymorphonuclear cells as percentage of leukocytesOrdered By: Mynor De Leon on 05-17-2025 Polymorphonuclear cells/100 WBC Auto (Syn fld) 89.8 % [facility] BUN/creatinine ratioOrdered By: Mynor De Leon on 05-17-2025 Urea nitrogen/Creatinine [Mass ratio] 13.7 mg/mg 10-20 [facility] Basophil percentageOrdered B y: Mynor De Leon on 05-17-2025 Basophils/100 WBC (Bld) 0.5 % 0-1 [facility] Bilirubin, totalOrdered By: Mynor De Leon on 05-17-2025 Bilirubin [Mass/Vol] 0.47 mg/dL 0.00-1.30 [facility] Blood lymphocytes/100 leukoc ytesOrdered By: Mynor De Leon on 05-17-2025 Lymphocytes/100 WBC (Bld) 1 % [facility] Body fluid crystal identific ation by light microscopyOrdered By: Mynor De Leon on 05-17-2025 Crystals LM Nom (Body fld) NO CRYSTALS SEEN [facility] Comment on above: CRYSTAL RESULT IS PRELIMINARY. SEE PATH REVIEW FOR FINAL REPORT. Carbon dioxide, total [Moles /volume] in Central venous bloodOrdered By: Mynor De Leon on 05-17-2025 CO2 [Moles/Vol] 20.2 mmol/L Low 21.0-32.0 [facility] Chloride assayOrdered By: Oh De Leon on 05-17-2025 Chloride [Moles/Vol] 101 mmol/L 98-108 [facility] Determination of appearance of synovial fluid (nominal result)Ordered By: Mynor De Leon on 05-17-2025 Appearance (Syn fld) Cloudy CLEAR [facility] Eosinophil percentageOrdered By: Mynor De Leon on 05-17-2025 Eosinophils/100 WBC (Bld) 1.0 % 0-5 [facility] Erythrocyte distribution wid th ratioOrdered By: Mynor De Leon on 05-17-2025 Erythrocyte distribution width (RBC) [Ratio] 14.3 % 11.6-14.6 [facility] Erythrocyte distribution wid th standard deviationOrdered By: Mynor De Leon on 05-17-2025 Erythrocyte distribution width (RBC) [Ratio] 44.8 fl High 35.1-43.9 [facility] Erythrocyte sedimentation ra teOrdered By: Mynor De Leon on 05-17-2025 ESR (Bld) [Velocity] 45 mm/h High 0-20 [facility] Glomerular filtration rate ( GFR) estimation/1.73 sq m using serum, plasma, or whole bOrdered By: Mynor De Leon on 05-17-2025 GFR/1.73 sq M.predicted among non-blacks MDRD (S/P/Bld) [Vol rate/Area] 94 mL/min/{1.73_m2} >60 [facility] Comment on above: mL/min/1.73m2 CKD-EP I Creatinine Equation (2020) Gram stainOrdered By: Mynor velazquez on 05-17-2025 Microscopic observation Gram stain Nom (Unsp spec) [facility] Hematocrit Auto (Bld) [Volum e fraction]Ordered By: Mynor De Leon on 05-17-2025 Hematocrit (Bld) [Volume fraction] 46.6 % 40-54 [facility] Hemoglobin measurementOrdere d By: Mynor De Leon on 05-17-2025 Hemoglobin (Bld) [Mass/Vol] 15.5 g/dL 13.0-16.5 [facility] Immature granulocytes/100 WB C Auto (Bld)Ordered By: Mynor De Leon on 05-17-2025 Immature granulocytes/100 WBC (Bld) 0.200 % 0.0-0.9 [facility] Comment on above: IG% - Immature Granu locytes (promyelocytes, myelocytes and metamyelocytes) > 1% indicates that a LEFT SHIFT is Present. Laboratory - Chemistry and C hemistry - challengeOrdered By: Mynorjames De Leon on 05-17-2025 AST [Catalytic activity/Vol] 19 U/L <38 [facility] MCV (mean corpuscular volume ) determinationOrdered By: Mynor De Leon on 05-17-2025 MCV (RBC) [Entitic vol] 85.8 fL 80-94 [facility] Mean corpuscular hemoglobin (MCH) determinationOrdered By: Mynor De Leon on 05-17-2025 MCH (RBC) [Entitic mass] 28.5 pg 27.0-32.0 [facility] Mean corpuscular hemoglobin concentration (MCHC) determinationOrdered By: Mynor De Leon on 05-17-2025 MCHC (RBC) [Mass/Vol] 33.3 g/dL 32-36 [facility] Mean platelet volume determi nationOrdered By: Mynor De Leon on 05-17-2025 Platelet mean volume (Bld) [Entitic vol] 9.1 fL 6.2-12.0 [facility] Monocyte percentageOrdered B y: Mynor De Leon on 05-17-2025 Monocytes/100 WBC (Bld) 9.4 % 0-10 [facility] Neutrophil percentageOrdered By: Mynor De Leon on 05-17-2025 Neutrophils/100 WBC (Bld) 51.0 % 47-70 [facility] Nucleated red blood cell per centageOrdered By: Mynor De Leon on 05-17-2025 Nucleated RBC/100 WBC (Bld) [Ratio] 0 % 0-5 [facility] Pathologist review of result s (narrative result)Ordered By: Mynor De Leon on 05-17-2025 Pathologist review Orestes (Unsp spec) [Interp] May follow [facility] Platelet countOrdered By: Oh De Leon on 05-17-2025 Platelets (Bld) [#/Vol] 297 10*3/uL 150-450 [facility] [facility] Potassium measurement (mass/ volume)Ordered By: Mynor De Leon on 05-17-2025 Potassium (Unsp spec) [Mass/Vol] 4.0 mmol/L 3.3-5.1 [facility] Qualitative synovial fluid v iscosityOrdered By: Mynor De Leon on 05-17-2025 Viscosity Ql (Syn fld) Mod. Viscous HIGH [facility] RBC Auto (Bld) [#/Vol]Ordere d By: Mynor De Leon on 05-17-2025 RBC (Bld) [#/Vol] 5.43 10*6/uL 4.6-6.2 [place] Review by pathologistOrdered By: Mynor De Leon on 05-17-2025 Pathologist review Orestes (Unsp spec) [Interp] Will follow [facility] Serum creatinine measurement (mass/volume)Ordered By: Mynor De Leon on 05-17-2025 Creatinine [Mass/Vol] 0.87 mg/dL 0.70-1.20 [facility] Serum globulin measurementOr dered By: Mynor De Leon on 05-17-2025 Globulin (S) [Mass/Vol] 3.1 g/dL 2.2-4.2 [facility] Serum glucose measurement (m ass/volume)Ordered By: Mynor De Leon on 05-17-2025 Glucose [Mass/Vol] 112 mg/dL High 70-99 [facility] Serum or plasma C reactive p rotein measurement (mass/volume)Ordered By: Mynor De Leon on 05-17-2025 CRP [Mass/Vol] 19.80 mg/L High 0.0-3.0 [facility] Serum or plasma alanine hargrove otransferase (ALT) measurementOrdered By: Mynor De Leon on 05-17-2025 ALT [Catalytic activity/Vol] 9 U/L <47 [facility] Serum or plasma albumin ricky urement (mass/volume)Ordered By: Mynor De Leon on 05-17-2025 Albumin [Mass/Vol] 4.0 g/dL 3.4-4.8 [facility] Serum or plasma albumin/glob ulin mass ratioOrdered By: Mynor De Leon on 05-17-2025 Albumin/Globulin [Mass ratio] 1.3 {ratio} 0.9-2.4 [facility] Serum or plasma alkaline sangeeta sphatase measurementOrdered By: Mynor De Leon on 05-17-2025 ALP [Catalytic activity/Vol] 66 U/L 40-129 [facility] Serum or plasma calcium ricky urement (mass/volume)Ordered By: Mynor De Leon on 05-17-2025 Calcium [Mass/Vol] 9.6 mg/dL 7.6-11.0 [facility] Serum or plasma urea nitroge n measurement (mass/volume)Ordered By: Mynor De Leon on 05-17-2025 Urea nitrogen [Mass/Vol] 12 mg/dL 4-19 [facility] Sodium levelOrdered By: Mynor De Leon on 05-17-2025 Sodium [Moles/Vol] 135 mmol/L 133-145 [facility] Specimen source identificati on of body fluidOrdered By: Mynor De Leon on 05-17-2025 Specimen source Nom (Body fld) SYNOVIAL [facility] Specimen source Nom (Body fld) LT KNEE [facility] Synovial fluid color determi nation (nominal result)Ordered By: Mynor De Leon on 05-17-2025 Color (Syn fld) Yellow Pale Yellow [facility] Synovial fluid erythrocytes count (number/volume)Ordered By: Mynor De Leon on 05-17-2025 RBC (Syn fld) [#/Vol] 0.008 10^6/uL High 0-0 [facility] Synovial fluid monocyte perc entageOrdered By: Mynor De Leon on 05-17-2025 Monocytes/100 WBC (Syn fld) 26 % [facility] Synovial fluid mononuclear c ells/100 leukocytesOrdered By: Mynor De Leon on 05-17-2025 Mononuclear cells/100 WBC (Syn fld) 10.2 % [facility] Synovial fluid neutrophil pe rcentageOrdered By: Mynor De Leon on 05-17-2025 Neutrophils/100 WBC (Syn fld) 73 % High 0-25 [facility] Synovial fluid total cell co untOrdered By: Mynor De Leon on 05-17-2025 Cells Counted Total (Syn fld) [#] 15.3980 10^3/uL High 0.000-0.00 0 [facility] Comment on above: This is the Total Nu mber of Nucleated Cell Types in the Body Fluid. Total proteinOrdered By: Mynor De Leon on 05-17-2025 Protein [Mass/Vol] 7.1 g/dL 5.9-8.4 [facility] White blood cell (WBC) count Ordered By: Mynor De Leon on 05-17-2025 WBC (Bld) [#/Vol] 17.5 10*3/uL High 4.4-11.0 [place] CNPNon 04-28-2025 CNPN Telephone (AGGENS4) LUKE DOLAN ([id number]) 1955 M Date Time Provider Department 04/28/25 YESENIA BOUDREAUX4 During your visit today, we recorded the following information about you: Phoenix Thompson RN 04/28/2025 4:36 PM Signed Opened in error Allergies As of Date: 04/28/2025 (No Known Allergies) Date Reviewed: 09/03/2019 Reviewed by: Loco Chatman (Rn), RN - Fully Assessed Prescriptions as of 04/28/2025 - cephALEXin (KEFLEX) 500 mg capsule Take 1 capsule by mouth four times daily. - clopidogrel (PLAVIX) 75 mg tablet Take 75 mg by mouth once daily. - aspirin, buffered (ASCRIPTIN) 325 mg buffered tablet Take 1 tablet by mouth once daily. - lisinopril-hydrochlorothiaz sebastián 10-12.5 mg per tablet Take 1 tablet [...] Leukocytosis [D72.829] 05/05/2014 Encounter Status:Closed by PHOENIX THOMPSON [facility]AGGENS4) LUKE DOLAN ([id number]) 1955 M Date Time Provider Department 04/23/25 YESENIA BOUDREAUX AGGENS4 During your visit today, we recorded the following information about you: Phoenix Thompson RN 04/23/2025 2:31 PM Signed I called and left a message on 04/11/25 and again today in an attempt to reschedule esophageal manometry. I left my contact information. Phoenix Thompson RN Allergies As of Date: 04/23/2025 (No [...] 1 tablet by mouth once daily. - lisinopril-hydrochlorothiaz sebastián 10-12.5 mg per tablet Take 1 tablet [...] Leukocytosis [D72.829] 05/05/2014 Encounter Status:Closed by PHOENIX THOMPSON on 04/23/25 [facility] CNPEmmie 03-17-2025 CNPN Telephone (AGGENS4) LUKE DOLAN ([id number]) 1955 M Date Time Provider Department 03/17/25 YESENIA BOUDREAUX AGGENS4 During your visit today, we recorded the following information about you: Phoenix Thompson, LUZ 03/17/2025 10:26 AM Signed I called patient to reschedule his esophageal manometry but patient asked if I would call him back in a week. He said he is scheduled for another test at [place] and would like to get that completed first. I agreed to call him back. Phoenix Thompson RN Allergies As of Date: 03/17/2025 (No [...] 1 tablet by mouth once daily. - lisinopril-hydrochlorothiaz sebastián 10-12.5 mg per tablet Take 1 tablet [...] Leukocytosis [D72.829] 05/05/2014 Encounter Status:Closed by PHOENIX THOMPSON on 03/17/[address] [facility] PET/CT Tumor Base -Thigh Ini ton 03-11-2025 PET/CT Tumor Base -Thigh Init [facility] Imaging Services [address] [place] [address] PET/CT Tumor Base -Thigh Init MR#: [id number] Acct: [id number] Name: LUKE DOLAN Rep #: [id number] : 1955 M 69 From: Gilbert Kan PCP: Dr. Camden Briones DO Status: REG CLI Study: PET/CT Tumor Base -Thigh Init Date of Exam: Exam# [id number] Ordering Dr: Camden Briones DO PROCEDURE: PET/CT TUMOR BASE -THIGH INIT [...] PET will be reported separately. Reading Location: [id number] CC: Dr. Camden Briones DO Ager Operator: Signed Normal [facility] Positron emission tomography scan reportOrdered By: Gilbert Hagen on 03-11-2025 PT Unspecified body region [facility] Imaging Services [address] [place] [address] PET/CT Tumor Base -Thigh Init MR#: [id number] Acct: [id number] Name: LUKE DOLAN Rep #: [id number] : 1955 M 69 From: Sergio Hagen MD PCP: Dr. Camden Briones DO Status: REG CLI Study:PET/CT Tumor Base -Thigh Init Date of E xam: 03/11/25 Exam# [id number] Ordering Dr: Camden Briones DO PROCEDURE: PET/CT TUMOR BASE -THIGH INIT [...] PET will be reported separately. Reading Location: [id number] CC: Dr. Camden Briones, DO ~ Ager Operator: Signed [facility] CT THORAX SCREENING W/O CONT Rosalina 02-28-2025 [...] Date: 02/28/2025 8:27:08 AM Ordering Provider: CAMDEN Chandra [facility] Stephen 12-11-2024 [place] Telephone (AGGENS4) LUKE DOLAN ([id number]) 1955 M Date Time Provider Department 12/11/24 YESENIA BOUDREAUX4 During your visit today, we recorded the following information about you: Allergies As of Date: 12/11/2024 (No Known Allergies) Date Reviewed: 09/03/2019 Reviewed by: Loco Chatman (Rn), RN - Fully Assessed Primary Visit Diagnosis:Dysphagia, unspecified type [R13.10] Order(s):SURGICAL REQUEST - ELECTIVE (06/2020) [[id number]] Order #: [id number]: 1 Prescriptions as of 12/11/2024 - cephALEXin (KEFLEX) 500 mg capsule Take 1 capsule by mouth four times daily. - clopidogrel (PLAVIX) 75 mg tablet Take 75 mg by mouth once daily. - aspirin, buffered (ASCRIPTIN) 325 mg buffered tablet Take 1 tablet by mouth once daily. - lisinopril-hydrochlorothiaz sebastián 10-12.5 mg per tablet Take 1 tablet [...] Leukocytosis [D72.829] 05/05/2014 Encounter Status:Closed by TESS WHITE on 12/11/24 [facility] CNPN Telephone (AGGENS4) LUKE DOLAN ([id number]) 1955 M Date Time Provider Department 12/11/24 YESENIA BOUDREAUX JAMEENS4 During your visit today, we recorded the following information about you: Tess White LPN 12/11/2024 11:38 AM Signed Patient called and cancelled manometry for 12/12/24, does not want to reschedule until late January early February. OSMAR Solo Sarah, LPN 12/11/2024 2:58 PM Signed Rescheduled for 02/28/2025 10am. Tess White LPN Allergies As of Date: 12/11/2024 (No Known Allergies) Date Reviewed: 09/03/2019 Reviewed by: Loco Chatman (Rn), RN - Fully Assessed Prescriptions as of 12/11/2024 - cephALEXin (KEFLEX) 500 mg capsule Take 1 capsule by mouth four times daily. - clopidogrel (PLAVIX) 75 mg tablet Take 75 mg by mouth once daily. - aspirin, buffered (ASCRIPTIN) 325 mg buffered tablet Take 1 tablet by mouth once daily. - lisinopril-hydrochlorothiaz sebastián 10-12.5 mg per tablet Take 1 tablet [...] Leukocytosis [D72.829] 05/05/2014 Encounter Status:Closed by TESS WHITE on 12/11/[address] [facility] Esophagus Single Contraston 12-11-2024 Esophagus Single Contrast [facility] Imaging Services [address] [place] [address] Esophagus Single Contrast MR#: [id number] Acct: [id number] Name: LUKE DOLAN Rep #: [id number] : 1955 M 69 From: Evans luther MD PCP: Dr. Camden Briones, DO Status: REG CLI Study: Esophagus Single Contrast Date of Exam: Exam# [id number] Ordering Dr: Loco Wilde MD [id number] STUDY: X-RAY - ESOPHAGUS (BARIUM SWALLOW) WITH [...] at 9:36 EST , CC: Dr. Camden Briones DO; Dr. Loco Wilde MD Ager Operator: Signed [facility] 12-02-2024 [facility] ([facility] LUKE DOLAN ([id number]) 1955 M Date Time Provider Department 12/02/24 YESENIA BOUDREAUX AGGENS4 During your visit today, we recorded the following information about you: Phoenix Thompson RN 12/02/2024 4:35 PM Signed I called patient and informed him that per Dr. Briones, he is to start holding his Plavix on 12/06/24 and restart it on 12/13/24. Patient agreed with the plan. Phoenix Thompson RN Allergies As of Date: 12/02/2024 (No [...] 1 tablet by mouth once daily. - lisinopril-hydrochlorothiaz sebastián 10-12.5 mg per tablet Take 1 tablet [...] Leukocytosis [D72.829] 05/05/2014 Encounter Status:Closed by PHOENIX THOMPSON on 12/02/24 [facility] Stephen 11-29-2024 CNPN Telephone (AGGENS4) LUKE DOLAN ([id number]) 1955 M Date Time Provider Department 11/29/24 [...] 1 tablet by mouth once daily. - lisinopril-hydrochlorothiaz sebastián 10-12.5 mg per tablet Take 1 tablet [...] by PAT MARTIN on 11/29/24 [facility] CNCOon 11-12-2024 CNCO Letter Text [facility] CNPNon 11-12-2024 CNPN Telephone (AGGENS4) LUKE DOLAN ([id number]) 1955 M Date Time Provider Department 11/12/24 YESENIA BOUDREAUX4 During your visit today, we recorded the following information about you: Phoenix Thompson RN 11/12/2024 11:16 AM Signed I called the patient and verbally discussed and reviewed the information about esophageal manometry. All of patient's questions were answered. Patient agreed to be scheduled on 12/12/24 at 10:00 AM I sent the patient written information via [employer] about esophageal manometry and the prep instructions, including holding Plavix for 5 days before the test, and directions for the appointment. Patient was informed that he will need to follow up with Dr. Wilde for test results. Phoenix Thompson RN Allergies As of Date: 11/12/2024 (No Known Allergies) Date Reviewed: 09/03/2019 Reviewed by: Loco Chatman (Rn), RN - Fully Assessed Reason for Visit: Future Appointment [256] Cmt: Esophageal manometry Primary Visit Diagnosis:Dysphagia, unspecified type [R13.10] Order(s):SURGICAL REQUEST - ELECTIVE (06/2020) [[id number]] Order #: [id number]: 1 Prescriptions as of 11/12/2024 - cephALEXin (KEFLEX) 500 mg capsule Take 1 capsule by mouth four times daily. - clopidogrel (PLAVIX) 75 mg tablet Take 75 mg by mouth once daily. - aspirin, buffered (ASCRIPTIN) 325 mg buffered tablet Take 1 tablet by mouth once daily. - lisinopril-hydrochlorothiaz sebastián 10-12.5 mg per tablet Take 1 tablet [...] Leukocytosis [D72.829] 05/05/2014 Encounter Status:Closed by PHOENIX THOMPSON on 11/12/[address] [facility] XR ESOPHOGRAM W/BARIUM TABLE Ton 10-31-2024 XR [...] Date: 10/31/2024 11:49:46 AM Ordering Provider: CAMDEN BRIONES [facility] Final Surgical Pathology Rep toni 10-23-2024 Final Surgical Pathology Report . 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 Smallest fragments may not survive processing. TS-1 Sierra Segovia, Grossing Chief Drafter/ Dr. Luke Sellers, Pathologist Performed by Sierra Segovia MICROSCOPIC DESCRIPTION: The microscopic examination is performed, except in the case of Gross Only. Electronically Signed by Pathology Report verified by [facility] THAIS BRAR MD Sign out Date: 10/23/2024 08:35 Performing Lab: [facility], [address] [place] [address] Pathology Dept Disclaimer If ancillary studies were utilized, the following Laboratory Developed Test (LDT) disclaimer will apply: Under CLIA requirements, [facility] Pathology Laboratory is qualified to perform high complexity testing. For all ancillary stains, positive and negative controls stain appropriately. Performance characteristics of immunohistochemical and chromogenic in-situ hybridization tests have been determined by [facility] Pathology Laboratory. These tests are used for clinical purposes, They should not be regarded as investigational or for research. Normal [facility] Cardiology Visit Reporton Cardiology Visit Report [facility] [place] [id number] [facility] [place] [address] OFFICE VISIT Date of Service: 05/22/24 MR#: [id number] Acct: [id number] Name: LUKE DOLAN Rep #: [id number] : 1955 Provider: Dr. Cecil green MD Age/Sex: 68/M Location: [facility] Status: Signed HPI [facility] History of Present Illness Details: This is a 68-year-old white male who presents today for an outpatient cardiovascular follow-up. He has a history of premature CAD, status post anterior KS (2004), status post previous multivessel PCI involving the LAD and LCx systems, hyperlipidemia, and nicotine abuse. 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 Normal [facility] .Auto Diffon 05-14-2024 Basophil, Absolute 0.1 10 3/mcL Normal 0.0-0.2 [facility] ([place]) Comment on above: Performed By: #### G FR, ANEU, LIPID, CBC, CMP, ADIFF, PSA #### [address] [address] Basophils/100 WBC (Bld) 0.4 % Normal 0.0-2.5 [facility] ([place]) Comment on above: Performed By: #### G FR, ANEU, LIPID, CBC, CMP, ADIFF, PSA #### [address] [address] Eosinophil, Absolute 0.1 10 3/mcL Normal 0.0-0.4 [facility] ([place]) Comment on above: Performed By: #### G FR, ANEU, LIPID, CBC, CMP, ADIFF, PSA #### [address] [address] Eosinophils/100 WBC (Bld) 0.8 % Normal 0.0-7.0 [facility] ([place] Comment on above: Performed By: #### G FR, ANEU, LIPID, CBC, CMP, ADIFF, PSA #### [address] [address] Lymphocyte, Absolute 5.6 10 3/mcL High 0.8-3.9 [facility] ([place] Comment on above: Performed By: #### G FR, ANEU, LIPID, CBC, CMP, ADIFF, PSA #### [address] [address] Lymphocytes/100 WBC (Bld) 35.2 % Normal 10.0-50.0 [facility] ([place] Comment on above: Performed By: #### G FR, ANEU, LIPID, CBC, CMP, ADIFF, PSA #### [address] [address] Monocyte, Absolute 0.9 10 3/mcL Normal 0.2-1.0 [facility] ([place] Comment on above: Performed By: #### G FR, ANEU, LIPID, CBC, CMP, ADIFF, PSA #### [address] [address] Monocytes/100 WBC (Bld) 5.3 % Normal 1.7-13.0 [facility] ([place] Comment on above: Performed By: #### G FR, ANEU, LIPID, CBC, CMP, ADIFF, PSA #### [address] [address] Neutrophils/100 WBC (Bld) 58.3 % Normal 37.0-80.0 [facility] ([place] Comment on above: Performed By: #### G FR, ANEU, LIPID, CBC, CMP, ADIFF, PSA #### [place] [address] [place], [place] [address] .GFRon 05-14-2024 GFR 79 ml/min/1.73sqm Normal [facility] ([place] Comment on above: Result Comment: GFR Population [...] ANEU, LIPID, CBC, CMP, ADIFF, PSA #### [address] [address] GFR Non- 65 ml/min/1.73sqm Normal [facility] ([place] Comment on above: Result Comment: GFR Population [...] ANEU, LIPID, CBC, CMP, ADIFF, PSA #### [place] [address] .NEUABSon 05-14-2024 Neutrophil, Absolute 9.3 10 3/mcL High 2.9-6.2 [facility] ([place] Comment on above: Performed By: #### G FR, ANEU, LIPID, CBC, CMP, ADIFF, PSA #### [place] [address] CBCon 05-14-2024 Erythrocyte distribution width (RBC) [Ratio] 14.7 % High 11.5-14.5 [facility] ([place] Comment on above: Performed By: #### G FR, ANEU, LIPID, CBC, CMP, ADIFF, PSA #### [place] [address] Hematocrit (Bld) [Volume fraction] 45.9 % Normal 42.0-52.0 [facility] ([place] Comment on above: Performed By: #### G FR, ANEU, LIPID, CBC, CMP, ADIFF, PSA #### [place] [address] Hgb 15.3 G/dL Normal 14.0-18.0 [facility] ([place] Comment on above: Performed By: #### G FR, ANEU, LIPID, CBC, CMP, ADIFF, PSA #### [place] [address] MCH (RBC) [Entitic mass] 28.3 pg Normal 27.0-31.2 [facility] ([place] Comment on above: Performed By: #### G FR, ANEU, LIPID, CBC, CMP, ADIFF, PSA #### [place] [address] MCHC 33.3 G/dL Normal 31.8-35.4 [facility] ([place] Comment on above: Performed By: #### G FR, ANEU, LIPID, CBC, CMP, ADIFF, PSA #### [address] [address] MCV (RBC) [Entitic vol] 85.1 fL Normal 80.0-94.0 [facility] ([place] Comment on above: Performed By: #### G FR, ANEU, LIPID, CBC, CMP, ADIFF, PSA #### [address] [address] Platelet 307 10 3/mcL Normal 130-400 [facility] ([place] Comment on above: Performed By: #### G FR, ANEU, LIPID, CBC, CMP, ADIFF, PSA #### [address] [address] Platelet mean volume (Bld) [Entitic vol] 7.7 fL Normal 7.4-10.4 [facility] ([place] Comment on above: Performed By: #### G FR, ANEU, LIPID, CBC, CMP, ADIFF, PSA #### [address] [address] RBC 5.39 10 6/mcL Normal 4.04-6.13 [facility] ([place] Comment on above: Performed By: #### G FR, ANEU, LIPID, CBC, CMP, ADIFF, PSA #### [address] [address] WBC 16.0 10 3/mcL High 4.6-10.8 [facility] ([place] Comment on above: Performed By: #### G FR, ANEU, LIPID, CBC, CMP, ADIFF, PSA #### [address] [address] CMPon 05-14-2024 Albumin Level 3.5 G/dL Normal 3.4-4.8 [facility] ([place] Comment on above: Performed By: #### G FR, ANEU, LIPID, CBC, CMP, ADIFF, PSA #### [address] [address] Albumin/Globulin [Mass ratio] 0.9 {ratio} Low 1.1-2.5 [facility] ([place] Comment on above: Performed By: #### G FR, ANEU, LIPID, CBC, CMP, ADIFF, PSA #### [place] [address] [place], [place] [address] ALP [Catalytic activity/Vol] 51 U/L Normal 40-135 [facility] ([place] Comment on above: Performed By: #### G FR, ANEU, LIPID, CBC, CMP, ADIFF, PSA #### [place] [place], [place] [address] ALT [Catalytic activity/Vol] 18 U/L Normal 16-63 [facility] ([place] Comment on above: Performed By: #### G FR, ANEU, LIPID, CBC, CMP, ADIFF, PSA #### [address] [address] AST [Catalytic activity/Vol] 13 U/L Normal 10-40 [facility] ([place] Comment on above: Performed By: #### G FR, ANEU, LIPID, CBC, CMP, ADIFF, PSA #### [address] [address] Bili Total 0.4 mg/dL Normal 0.2-1.0 [facility] ([place] Comment on above: Result Comment: Use of this assay is not recommended for patients undergoing treatment with eltrombopag due to the potential for falsely elevated results. Performed By: #### G FR, ANEU, LIPID, CBC, CMP, ADIFF, PSA #### [address] [address] BUN/Creatinine Ratio 13 ratio Normal 7-27 [facility] ([place] Comment on above: Performed By: #### G FR, ANEU, LIPID, CBC, CMP, ADIFF, PSA #### [address] [address] Calcium [Mass/Vol] 9.4 mg/dL Normal 8.4-10.2 [facility] ([place] Comment on above: Performed By: #### G FR, ANEU, LIPID, CBC, CMP, ADIFF, PSA #### [address] [address] Chloride [Moles/Vol] 99 mmol/L Normal 98-107 [facility] ([place] Comment on above: Performed By: #### G FR, ANEU, LIPID, CBC, CMP, ADIFF, PSA #### [address] [address] CO2 [Moles/Vol] 25 mmol/L Normal 23-31 [facility] ([place] Comment on above: Performed By: #### G FR, ANEU, LIPID, CBC, CMP, ADIFF, PSA #### [address] [address] Creatinine [Mass/Vol] 1.12 mg/dL Normal 0.70-1.30 [facility] ([place] Comment on above: Performed By: #### G FR, ANEU, LIPID, CBC, CMP, ADIFF, PSA #### [address] [address] Electrolyte Balance 10.0 mEq/L Normal 4.0-15.0 [facility] ([place]) Comment on above: Performed By: #### G FR, ANEU, LIPID, CBC, CMP, ADIFF, PSA #### [address] [address] Globulin 3.7 G/dL Normal [facility] ([place] Comment on above: Performed By: #### G FR, ANEU, LIPID, CBC, CMP, ADIFF, PSA #### [address] [address] Glucose [Mass/Vol] 216 mg/dL High 80-115 [facility] ([place] Comment on above: Performed By: #### G FR, ANEU, LIPID, CBC, CMP, ADIFF, PSA #### [address] [address] Potassium [Moles/Vol] 4.0 mmol/L Normal 3.5-5.1 [facility] ([place] Comment on above: Performed By: #### G FR, ANEU, LIPID, CBC, CMP, ADIFF, PSA #### [address] [address] Sodium [Moles/Vol] 134 mmol/L Low 136-145 [facility] ([place]) Comment on above: Performed By: #### G FR, ANEU, LIPID, CBC, CMP, ADIFF, PSA #### [address] [address] Total Protein 7.2 G/dL Normal 6.4-8.2 [facility] ([place]) Comment on above: Performed By: #### G FR, ANEU, LIPID, CBC, CMP, ADIFF, PSA #### [address] [address] Urea nitrogen [Mass/Vol] 15 mg/dL Normal 7-18 [facility] ([place]) Comment on above: Performed By: #### G FR, ANEU, LIPID, CBC, CMP, ADIFF, PSA #### [address] [address] LIPIDon 05-14-2024 Cholesterol [Mass/Vol] 195 mg/dL Normal 0-200 [facility] ([place]) Comment on above: Result Comment: Chol esterol Reference Interval: Less than 200 Desirable 200-239 Borderline high risk 240 and above High risk Performed By: #### G FR, ANEU, LIPID, CBC, CMP, ADIFF, PSA #### [address] [address] Cholesterol in HDL [Mass/Vol] 35 mg/dL Low 40-60 [facility] ([place]) Comment on above: Performed By: #### G FR, ANEU, LIPID, CBC, CMP, ADIFF, PSA #### [address] [address] Cholesterol in LDL [Mass/Vol] 103 mg/dL Normal 0-130 [facility] ([place]) Comment on above: Performed By: #### G FR, ANEU, LIPID, CBC, CMP, ADIFF, PSA #### [address] [address] Triglyceride [Mass/Vol] 284 mg/dL High 0-150 [facility] ([place]) Comment on above: Result Comment: Trig lyceride Reference Interval: Less than 150 Normal 150-199 Borderline high risk 200-499 High risk 500 or higher Very high risk Performed By: #### G FR, ANEU, LIPID, CBC, CMP, ADIFF, PSA #### [facility] [address] [place], [place] [address] PSAon 05-14-2024 Prostate Specific Antigen 0.90 ng/mL Normal 0.00-4.00 [facility] ([place]) Comment on above: Performed By: #### G FR, ANEU, LIPID, CBC, CMP, ADIFF, PSA #### [facility] [address] [place], [place] [address] CT THORAX SCREENING W/O CONT RASTon 02-29-2024 [...] Date: 02/29/2024 9:41:38 AM Ordering Provider: CAMDEN Chandra [facility] ([place]) Glucose Glucometer (BldC) [M ass/Vol]Ordered By: Chary Fontaine on 08-28-2023 Glucose [Mass/Vol] 119 mg/dL 74-106 [facility] Comment on above: MANAGEMENT OF PATIEN T CARE PER NURSING PROTOCOL Absolute lymphocyte countOrd ered By: Aaron Jacques on 08-21-2023 Lymphocytes Auto (Unsp spec) [#/Vol] 4.97 10*3/uL 0.83-4.51 [facility] Basophil percentageOrdered B y: Aaron Jacques on 08-21-2023 Basophils/100 WBC (Bld) 0.5 % 0-1 [facility] Chloride [Moles/Vol] 108 mmol/L 98-107 [facility] Eosinophils/100 WBC (Bld) 2.3 % 0-5 [facility] Glucose [Mass/Vol] 197 mg/dL 74-106 [facility] Comment on above: Fasting Glucose resu lt greater than or equal to 126 mg/dL suggests DIABETES MELLITUS per A.D.A. criteria. Neutrophils (Bld) [#/Vol] 6.4 10*3/uL 2.0-7.7 [facility] Neutrophils/100 WBC (Bld) 50.3 % 47-70 [facility] Potassium [Moles/Vol] 3.6 mmol/L 3.5-5.1 [facility] Sodium [Moles/Vol] 139 mmol/L 136-145 [facility] WBC (Bld) [#/Vol] 12.8 10*3/uL 4.4-11.0 [place] Blood erythrocytes count (nu mber/volume)Ordered By: Aaron Jacques on 08-21-2023 RBC (Bld) [#/Vol] 5.15 10*6/uL 4.6-6.2 [place] Blood hemoglobin measurement (mass/volume)Ordered By: Aaron Jacques on 08-21-2023 Hemoglobin (Bld) [Mass/Vol] 14.5 g/dL 13.0-16.5 [facility] Blood lymphocytes/100 leukoc ytesOrdered By: Aaron Jacques on 08-21-2023 Lymphocytes/100 WBC (Bld) 38.8 % 19-41 [facility] Blood monocytes/100 leukocyt esOrdered By: Aaron Jacques on 08-21-2023 Monocytes/100 WBC (Bld) 7.9 % 0-10 [facility] Blood platelet mean volumeOr dered By: Aaron Jacques on 08-21-2023 Platelet mean volume (Bld) [Entitic vol] 9.2 fL 6.2-12.0 [facility] Determination of erythrocyte mean corpuscular volume (MCV)Ordered By: Aaron Jacques on 08-21-2023 MCV (RBC) [Entitic vol] 86.6 fL 80-94 [facility] Hematocrit Auto (Bld) [Volum e fraction]Ordered By: Aaron Jacques on 08-21-2023 Hematocrit (Bld) [Volume fraction] 44.6 % 40-54 [facility] Laboratory - Chemistry and C hemistry - challengeOrdered By: Aaron Jacques on 08-21-2023 CO2 [Moles/Vol] 25.0 mmol/L 21.0-32.0 [facility] Urea nitrogen/Creatinine [Mass ratio] 10.3 mg/mg 10-20 [facility] Laboratory - Hematology and Cell countsOrdered By: Aaron Jacques on 08-21-2023 Erythrocyte distribution width (RBC) [Entitic vol] 46.4 fL 35.1-43.9 [facility] Erythrocyte distribution width (RBC) [Ratio] 14.5 % 11.6-14.6 [facility] Immature granulocytes/100 WBC (Bld) 0.200 % 0.0-0.9 [facility] Comment on above: IG% - Immature Granu locytes (promyelocytes, myelocytes and metamyelocytes) > 1% indicates that a LEFT SHIFT is Present. MCH (RBC) [Entitic mass] 28.2 pg 27.0-32.0 [facility] Nucleated RBC/100 WBC (Bld) [Ratio] 0 % 0-5 [facility] MCHC Auto (RBC) [Mass/Vol]Or dered By: Aaron Jacques on 08-21-2023 MCHC (RBC) [Mass/Vol] 32.5 g/dL 32-36 [facility] No Panel InformationOrdered By: Aaron Jacques on 08-21-2023 Estimated GFR (MDRD) Amer 80 mL/min >60 [facility] Comment on above: GFR Calc Estimated GFR (MDRD) Non-Af Amer 66 mL/min >60 [facility] Comment on above: Non- GFR Calc Platelets bldOrdered By: Isabell Jacques on 08-21-2023 Platelets (Bld) [#/Vol] 334 10*3/uL 150-450 [facility] Serum or plasma calcium ricky urement (mass/volume)Ordered By: Aaron Jacques on 08-21-2023 Calcium [Mass/Vol] 9.2 mg/dL 8.5-10.1 [facility] Serum or plasma creatinine m easurement (mass/volume)Ordered By: Aaron Jacques on 08-21-2023 Creatinine [Mass/Vol] 1.17 mg/dL 0.70-1.30 [facility] Comment on above: The validity of the calculated GFR & GFRAA in patients over 70 years has not been determined. Clinical correlation is essential. Serum or plasma urea nitroge n measurement (mass/volume)Ordered By: Aaron Jacques on 08-21-2023 Urea nitrogen [Mass/Vol] 12 mg/dL 7-18 [facility] Thin prep Papanicolaou smear with manual screeningOrdered By: Aaron Jacques on 08-21-2023 Thin prep Papanicolaou smear with manual screening 6 5-15 [facility] Whole blood hemoglobin A1c/t otal hemoglobin ratio (mass fraction)Ordered By: Aaron Jacques on 08-21-2023 HbA1c (Bld) [Mass fraction] 6.2 % 3.8-5.6 [facility] Comment on above: Normal < 5.7 % [...] ED NOTEon 09-03-2019 ED NOTE HNO ID: [id number] Author: Ambika BruceRnTay Melchor RN Service: Emergency Medicine Author Type: Registered [...] improve your ED visit? No SIGNATURE: AMBIKA MELCHOR RN PATIENT NAME: Luke Dolan DATE: September 04, 2019 TIME: 2:00 PM Normal [facility] ED NOTE HNO ID: [id number] Author: Edith Saez) LUZ Gorman Service: ? Author Type: Registered Nurse Type: ED Notes Filed: 09/03/2019 12:42 PM Note Text: Pt to room from radiology Normal [facility] ED NOTE HNO ID: [id number] Author: Edith Saez) LUZ Gorman Service: ? Author Type: Registered Nurse Type: ED Notes Filed: 09/03/2019 12:30 PM Note Text: Pt ambulatory to radiology Normal [facility] ED NOTE HNO ID: [id number] Author: Edith Saez) LUZ Gorman Service: ? Author Type: Registered Nurse Type: ED Notes Filed: 09/03/2019 12:20 PM Note Text: Patient informed: the name of medication, why we are giving it, possible side effects, what they may expect to feel, and was offered a chance to ask questions, prior to the administration of Keflex, Motrin Normal [facility] ED NOTE HNO ID: [id number] Author: Loco BruceRn) LUZ Chatman Service: Emergency Medicine Author Type: Registered Nurse Type: ED Notes Filed: 09/03/2019 11:57 AM Note Text: Left hand and wrist pain for 3 days denies any injury Normal [facility] ED PROV NOTEon 09-03-2019 ED PROV NOTE HNO ID: [id number] Author: Dennis Canales MD Service: Emergency Medicine [...] 1248 Dennis Canales MD 09/03/19 1315 Normal [facility] Office Visit: [facility] 04-13-20 17 Documentation of current medications (procedure) Done Invalid Interpretation Code 5 examples Work Phone: [phone] Smoking cessation education (procedure) yes Invalid Interpretation Code 5 examples Work Phone: [phone] Tobacco use CPHS Current every day smoker Invali d Interpretation Code 5 examples Work Phone: [phone] Office Visiton 10-12-2016 Dietary management education, guidance, and counseling (procedure) yes Invalid Interpretation Code 5 examples Work Phone: [phone] Lab Reporton 09-19-2016 Chloride 106 mmol/L Invalid Interpretation Code 5 examples Work Phone: [phone] CO2 25.8 mmol/L Invalid Interpretation Code 5 examples Work Phone: [phone] Creatinine 1.10 mg/dL Invalid Interpretation Code 5 examples Work Phone: [phone] Urea nitrogen 13 mg/dL Invalid Interpretation Code 5 examples Work Phone: [phone] Potassium 4.4 mmol/L Invalid Interpretation Code 5 examples Work Phone: [phone] Sodium 141 mmol/L Invalid Interpretation Code 5 examples Work Phone: [phone] Cholesterol 192 mg/dL Invalid Interpretation Code 5 examples Work Phone: [phone] HDL Cholesterol 33 mg/dL Invalid Interpretation Code 5 examples Work Phone: [phone] LDL Cholesterol 117 mg/dL Invalid Interpretation Code 5 examples Work Phone: [phone] Triglyceride 210 mg/dL Invalid Interpretation Code 5 examples Work Phone: [phone] Replaced Document: Scotty JENNINGS Observationson 04-05-2016 electrocardiogram interpretation Sinus Rhythm WITHIN NORMAL LIMITS Invalid Interpretation Code 5 examples Work Phone: [phone] GE use only - for LinkLogic import when terms are not otherwise specified 379 ms Invalid Interpretation Code 5 examples Work Phone: [phone] P wave axis, electrocardiogram 47 deg Invalid Interpretation Code 5 examples Work Phone: [phone] CA interval, electrocardiogram 162 ms Invalid Interpretation Code 5 examples Work Phone: [phone] Pulse (Heart Rate) 77 /min Invalid Interpretation Code [facility] examples Work Phone: [phone] QRS axis, electrocardiogram 21 deg Invalid Interpretation Code [facility] examples Work Phone: [phone] QRS duration, electrocardiogram 96 ms Invalid Interpretation Code [facility] examples Work Phone: [phone] QT interval, electrocardiogram new path ms Invalid Interpretation Code [facility] examples Work Phone: [phone] T wave axis, electrocardiogram 42 deg Invalid Interpretation Code [place] Phone: [phone] Clinical Lists Update: Pre 03-31-2016 Left ventricular Ejection fraction 60 % Invalid Interpretation Code 5 examples Work Phone: [phone] Clinical Lists Update: Pre 03-04-2016 Anion gap 11.1 mmol/L Invalid Interpretation Code [employer] examples Work Phone: [phone] BUN/Creatinine Ratio 11.9 mg/mg Invalid Interpretation Code [employer] examples Work Phone: [phone] Calcium 9.9 mg/dL Invalid Interpretation Code 5 examples Work Phone: [phone] Glucose 99 mg/dL Invalid Interpretation Code 5 examples Work Phone: [phone] HbA1c 6.2 % Invalid Interpretation Code 5 examples Work Phone: [phone] Office Visit: 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 Cholesterol to HDL Ratio 5.9 {ratio} Invalid Interpretation Code [facility] Work Phone: [phone] Lab Report: BMPon 05-27-2014 eGFR (non-black) 66 mL/min/{1.73_m2} Normal >60 [facility] Work Phone: [phone] eGFR (non-black) 80 mL/min/{1.73_m2} Normal >60 [facility] Work Phone: [phone] Lab Report: CBCDon 4 Absolute Neutrophil count 6.6 X10 3/UL Normal 2.0-7.7 [facility] Work Phone: [phone] Basophils/100 leukocytes 0.3 % Normal 0-1 [facility] Work Phone: [phone] Eosinophils/100 leukocytes 2.0 % Normal 0-5 [facility] Work Phone: [phone] Erythrocytes (RBC) 5.34 10*6/uL Normal 4.6-6.[address] [facility] Work Phone: [phone] Hematocrit (HCT) 44.3 % Normal 40-54 [facility] Work Phone: [phone] Hemoglobin (HGB) 14.9 g/dL Normal 13.0-16.5 [facility] Work Phone: [phone] Lymphocytes/100 leukocytes 36.7 % Normal 19-41 [facility] Work Phone: [phone] MCH 27.9 pg Normal 27.0-32.0 [facility] Work Phone: [phone] MCHC 33.6 G/GL Normal 32-36 [facility] Work Phone: [phone] MCV 83.0 fL Normal 80-94 [facility] Work Phone: [phone] Monocytes/100 leukocytes 9.0 % Normal 0-10 [facility] Work Phone: [phone] Neutrophils/100 leukocytes 51.8 % Normal 47-70 [facility] Work Phone: [phone] Platelets 327 10*3/mm3 Normal 150-450 [facility] Work Phone: [phone] PMV by Kiko 9.5 fL Normal 6.2-12.0 [facility] Work Phone: [phone] WBC (Leukocytes) 12.8 10*3/uL High 4.4-11.0 [facility] Work Phone: [phone]) Lab Report: BIDon 03-18-2013 Bilirubin (direct) 0.06 mg/dL Normal 0.00-0.30 [facility] Work Phone: [phone] Lab Report: CMPon 03-18-2013 Alanine aminotransferase (ALT) 19 U/L Normal 12-78 [facility] Work Phone: [phone] Albumin 3.5 g/dL Normal 3.4-5.0 [facility] Work Phone: [phone] Alkaline phosphatase (ALP) 55 U/L Normal 50-136 [facility] Work Phone: [phone] Aspartate aminotransferase (AST) 15 U/L Normal 15-37 [facility] Work Phone: [phone] Bilirubin (total) 0.30 mg/dL Normal 0.00-1.00 [facility] Work Phone: [phone]) Lab Report: LIPIDon 03-18-20 13 very low density lipoproteins 57 mg/dL High 5-40 [facility] Work Phone: [phone] Replaced Document: Scotty E CG Observationson 03-11-2013 Pulse (Heart Rate) 379 ms Invalid Interpretation Code [facility] Work Phone: [phone] Lab Report: TROPon 2 Troponin I ng/mL Normal <0.06 [facility] Work Phone: [phone] Vital Signs Date Time Vital Sign Value Performing Clinician Facility 05-17-2025 15:03-0400 Body temperature 97.8 [degF] Dr. Camden Briones DO Work Phone: [facility] 05-17-2025 15:03-0400 Diastolic blood pressure 81 mm[Hg] Dr. Camden Briones DO Work Phone: [facility] 05-17-2025 15:03-0400 Heart rate 81 /min Dr. Camden Briones DO Work Phone: [facility] 05-17-2025 15:03-0400 Respiratory rate 18 /min Dr. Camden Briones DO Work Phone: [facility] 05-17-2025 15:03-0400 SaO2% (BldA) [Mass fraction] 99 % Dr. Camden Briones DO Work Phone: [facility] 05-17-2025 15:03-0400 Systolic blood pressure 179 mm[Hg] Dr. Camden Briones DO Work Phone: [facility] 05-17-2025 13:47-0400 Body height 167.[address] Camden Briones DO Work Phone: [facility] 05-17-2025 13:47-0400 Body mass index (BMI) [Ratio] 27.8 kg/m2 Dr. Camden Briones DO Work Phone: [facility] 05-17-2025 13:47-0400 Body weight 78.[address] Camden Briones DO Work Phone: [facility] 10-21-2024 09:56-0500 Diastolic Blood Pressure Non-Invasive 72 mm[Hg] DR LOCO WILDE MD [facility] 10-21-2024 09:56-0500 Heart rate 77 /min DR LOCO WILDE MD [facility] 10-21-2024 09:56-0500 Systolic Blood Pressure Non-Invasive 122 mm[Hg] DR LOCO WILDE MD [facility] 10-21-2024 09:51-0500 Diastolic Blood Pressure Non-Invasive 79 mm[Hg] DR LOCO WILDE MD [facility] 10-21-2024 09:51-0500 Heart rate 76 /min DR LOCO WILDE MD [facility] 10-21-2024 09:51-0500 Systolic Blood Pressure Non-Invasive 125 mm[Hg] DR LOCO WILDE MD [facility] 10-21-2024 09:47-0500 Diastolic Blood Pressure Non-Invasive 74 mm[Hg] DR LOCO WILDE MD [facility] 10-21-2024 09:47-0500 Heart rate 73 /min DR LOCO WILDE MD [facility] 10-21-2024 09:47-0500 Systolic Blood Pressure Non-Invasive 103 mm[Hg] DR LOCO WILDE MD [facility] 10-21-2024 09:38-0500 Body temperature 97.52 [degF] DR LOCO WILDE MD [facility] 10-21-2024 09:35-0500 Respiratory Rate - Anes 0 br/min DR LOCO WILDE MD [facility] 10-21-2024 09:30-0500 Respiratory Rate - Anes 0 br/min DR LOCO WILDE MD [facility] 10-21-2024 07:54-0500 Body height 167.[address] LOCO WILDE MD [facility] 10-21-2024 07:54-0500 Body temperature 97.16 [degF] DR LOCO WILDE MD [facility] 10-21-2024 07:54-0500 Body weight 76.[address] LOCO WILDE MD [facility] 10-21-2024 07:54-0500 Heart rate 74 /min DR LOCO WILDE MD [facility] 10-21-2024 07:54-0500 Respiratory rate 13 /min DR LOCO WILDE MD [facility] 10-21-2024 07:49-0500 Body height 167.[address] LOCO WILDE MD [facility] 08-28-2023 14:50-0400 Body temperature 97.9 [degF] Dr. Camedn Briones Work Phone: [facility] 08-28-2023 14:50-0400 Diastolic blood pressure 64 mm[Hg] Dr. Camden Briones Work Phone: [facility] 08-28-2023 14:50-0400 Heart rate 77 /min Dr. Camden Briones Work Phone: [facility] 08-28-2023 14:50-0400 Respiratory rate 14 /min Dr. Camden Briones Work Phone: [facility] 08-28-2023 14:50-0400 SaO2% (BldA) [Mass fraction] 97 % Dr. Camden Briones Work Phone: [facility] 08-28-2023 14:50-0400 Systolic blood pressure 130 mm[Hg] Dr. Camden Briones Work Phone: [facility] 08-28-2023 11:46-0400 Body height 170.[address] Camden Briones Work Phone: [facility] 08-28-2023 11:46-0400 Body mass index (BMI) [Ratio] 25 kg/m2 Dr. Camden Briones Work Phone: [facility] 08-28-2023 11:46-0400 Body weight 72.[address] Camden Briones Work Phone: [facility] 08-07-2023 14:09-0400 Body mass index (BMI) [Ratio] 26.5 kg/m2 Dr. Camden Briones Work Phone: [facility] 08-07-2023 14:09-0400 Body weight 74.[address] Camden Briones Work Phone: [facility] 08-07-2023 14:09-0400 Diastolic blood pressure 91 mm[Hg] Dr. Camden Briones Work Phone: [facility] 08-07-2023 14:09-0400 Heart rate 67 /min Dr. Camden Briones Work Phone: [facility] 08-07-2023 14:09-0400 Respiratory rate 17 /min Dr. Camden Briones Work Phone: [facility] 08-07-2023 14:09-0400 SaO2% (BldA) [Mass fraction] 97 % Dr. Camden Briones Work Phone: [facility] 08-07-2023 14:09-0400 Systolic blood pressure 163 mm[Hg] Dr. Camden Briones Work Phone: [facility] 06-09-2023 09:42-0400 Body height 167.[address] Camden Briones Work Phone: [facility] 06-09-2023 09:42-0400 Body mass index (BMI) [Ratio] 26.8 kg/m2 Dr. Camden Briones Work Phone: [facility] 06-09-2023 09:42-0400 Body temperature 98 [degF] Dr. Camden Briones Work Phone: [facility] 06-09-2023 09:42-0400 Body weight 75.[address] Camden Briones Work Phone: [facility] 06-09-2023 09:42-0400 Diastolic blood pressure 78 mm[Hg] Dr. Camden Briones Work Phone: [facility] 06-09-2023 09:42-0400 Heart rate 71 /min Dr. Camden Briones Work Phone: [facility] 06-09-2023 09:42-0400 Respiratory rate 17 /min Dr. Camden Briones Work Phone: [facility] 06-09-2023 09:42-0400 Systolic blood pressure 134 mm[Hg] Dr. Camden Briones Work Phone: [facility] 04-28-2023 12:59-0400 Body mass index (BMI) [Ratio] 26.3 kg/m2 Dr. Camden Briones Work Phone: [facility] 04-28-2023 12:59-0400 Body weight 73.[address] Camden Briones Work Phone: [facility] 04-28-2023 12:59-0400 Diastolic blood pressure 67 mm[Hg] Dr. Camden Briones Work Phone: [facility] 04-28-2023 12:59-0400 Heart rate 86 /min Dr. Camden Briones Work Phone: [facility] 04-28-2023 12:59-0400 Respiratory rate 18 /min Dr. Camden Briones Work Phone: [facility] 04-28-2023 12:59-0400 SaO2% (BldA) [Mass fraction] 95 % Dr. Camden Briones Work Phone: [facility] 04-28-2023 12:59-0400 Systolic blood pressure 106 mm[Hg] Dr. Camden Briones Work Phone: [facility] 04-13-2017 12:59-0400 BMI (Body Mass Index) 26.5 kg/m2 [facility] Work Phone: 04-13-2017 12:59-0400 BP Diastolic 60 mm[Hg] [facility] Work Phone: 04-13-2017 12:59-0400 BP Systolic 118 mm[Hg] [facility] Work Phone: 04-13-2017 12:59-0400 Pulse (Heart Rate) 84 /min [facility] Work Phone: 04-13-2017 12:59-0400 Weight 76.75 kg [facility] Work Phone: 10-12-2016 12:58-0500 BSA (Body Surface Area) 1.88 m2 [facility] Work Phone: 10-12-2016 12:58-0500 Respiratory Rate 16 /min [facility] Work Phone: 06-16-2014 14:16-0400 Body Temperature 98.4 [degF] [facility] Work Phone: 02-13-2012 14:29-0400 Height 170.18 cm [facility] Work Phone: 02-13-2012 14:29-0400 Pulse Oximetry 97 % [facility] Work Phone: Encounters Encounter Date Encounter Type Care Provider Facility Start: 05-17-2025 Non-patient / Non-visit Dr. Matti Gonzales MD -[facility] Start: 05-17-2025 Admission to [facility] Dr[facility] Erickson Robbins DO -[facility] Work Phone: Start: 05-17-[address] Camden saunders DO Work Phone: [facility] Work Phone: Start: 04-28-2025 End: 04-28-2025 Telephone encounter Yesenia Boudreaux MD Work Phone: [facility] Start: 04-23-2025 End: 04-23-2025 Telephone encounter Yesenia Boudreaux MD Work Phone: [facility] Comment on above: Future Appointment ( Attempt to reschedule esophageal manometry ) Start: 03-17-2025 End: 03-17-2025 Telephone encounter Yesenia Boudreaux MD Work Phone: [facility] Comment on above: Future Appointment ( Reschedule manometry/) Start: 03-11-2025 End: 03-11-[address] Camden Briones DO Work Phone: [facility] Work Phone: Start: 03-11-2025 End: 03-11-[address] Camden Briones DO -[facility] [place] Start: 03-11-2025 End: 03-11-[facility] Start: 02-27-2025 End: 02-27-2025 [facility] Start: 12-11-2024 End: 12-11-2024 Telephone encounter Yesenia Boudreaux MD Work Phone: [facility] Start: 12-11-2024 End: 12-11-[address] Loco Wilde MD -Radiology, [facility] Work Phone: Start: 12-11-2024 End: 12-11-2024 [facility] Start: 12-02-2024 End: 12-02-2024 Telephone encounter Yesenia Boudreaux MD Work Phone: [facility] Comment on above: Future Appointment ( Plavix instructions) Start: 11-29-2024 End: 11-29-2024 Telephone encounter Yesenia Boudreaux MD Work Phone: [facility] Comment on above: clearance/medication recommendation Start: 11-12-2024 End: 11-12-2024 Telephone encounter Yesenia Boudreaux MD Work Phone: [facility] Comment on above: Future Appointment ( Esophageal manometry/) Start: 10-31-2024 End: 10-31-2024 ambulatory CAMDEN BRIONES DO Facility:[facility] Start: 10-31-2024 End: 10-31-2024 Patient encounter procedure CAMDEN ANSELMO GAVIRIA [facility] Start: 10-21-2024 End: 10-21-[address] LOCO WILDE MD Facility:[facility] Start: 10-21-2024 End: 10-21-[address] LOCO WILDE MD [facility] Start: 05-22-2024 End: 05-22-2024 ambulatory Cecil Sterling Facility:[facility] Start: 05-14-2024 End: 05-14-2024 ambulatory CAMDEN BRIONES DO Facility:[facility] Start: 02-27-2024 End: 02-27-2024 ambulatory CAMDEN BRIONES DO Facility:[facility] Start: 02-27-2024 End: 02-27-2024 Patient encounter procedure CAMDEN BRIONES DO [facility] Start: 08-28-2023 Non-patient / Non-visit Dr. Litzy Briones Work Phone: [facility] Start: 08-28-2023 End: 08-28-2023 Admission to same day surgery center Dr. Camden Briones Work Phone: [facility] Start: 08-28-2023 End: 08-28-[address] Camden Briones Work Phone: [facility] Work Phone: Start: 08-07-2023 End: 08-07-[address] Camden Briones Work Phone: [facility] Work Phone: Start: 06-30-2023 Non-patient / Non-visit Dr. Litzy Briones Work Phone: [facility] Start: 06-30-2023 End: 06-30-[address] Camden Briones Work Phone: [facility] Work Phone: Start: 06-30-2023 End: 06-30-[address] Camden Briones Work Phone: [facility] Work Phone: Start: 06-13-2023 End: 06-13-[address] Camden Briones Work Phone: [facility] Work Phone: Start: 06-13-2023 End: 06-13-[address] Camden Briones Work Phone: [facility] Work Phone: Start: 06-09-2023 End: 06-09-[address] Camden Briones Work Phone: [facility] Work Phone: Start: 04-28-2023 End: 04-28-[address] Camden Briones Work Phone: [facility] Work Phone: Start: 11-08-2022 End: 11-08-2022 Patient encounter procedure CAMDEN BRIONES DO [facility] Start: 11-22-2021 End: 11-22-2021 Patient encounter procedure CAMDEN BRIONES DO [facility] Procedures Date Procedure Procedure Detail Performing Clinician Start: 05-17-2025 Gram stain microscopy D jeramie Briones DO Work Phone: Start: 05-17-2025 X-ray of knee, four or more views Dr. Camden Briones DO Work Phone: Start: 05-17-2025 X-ray of lumbar spin e, two or three views Dr. Camden Briones DO Work Phone: Start: 05-17-[address] Camden Briones DO Work Phone: Start: 03-11-2025 Positron emission to mography with computed tomography Dr. Camden Briones DO Work Phone: Start: 12-11-2024 Radiography of gastrointestinal tract Dr. Camden Briones DO Work Phone: Start: 08-28-2023 Laparoscopic repair of hernia of anterior abdominal wall Dr. Camden Briones Work Phone: Start: 08-03-2023 Xcapsl ctrc rmvl ins j io lens prosth w/ecp CAMDEN BRIONES DO Comment on above: right eye-[facility] Start: 06-13-2023 CT of abdomen withou t contrast Dr. Camden Briones Work Phone: Start: 04-13-2017 End: 04-13-2017 Follow Up Appt 6 months Marleni reddy PA-C Work Phone: Start: 04-13-2017 End: 04-13-2017 PFM Marleni Zuñiga PA-C Work Phone: Start: 01-25-2017 Cataract extraction and insertion of intraocular lens CAMDEN BRIONES DO Comment on above: Left Start: 10-12-2016 [...] Phone: Start: 11-27-2012 Inguinal hernia (disorder) CAMDEN BRIONES DO Comment on above: Repair Start: 08-27-2012 End: [...] Giles Peters MD Start: 11-27-2010 Cholecystectomy CAMDEN BRIONES DO Start: 11-27-2009 Placement of stent ROBE RT ANSELMO GAVIRIA Comment on above: multiple stents Tonsillectomy CAMDEN BRIONES DO Plan of Treatment Date Care Activity Detail Author Start: 2031 RSV Vaccine (1 - 1-dose 75+ series) RSV Vaccine (1 - 1-dose 75+ series) [facility] Start: 07-28-2025 Influenza vaccination Influenza Vaccine (Season Ended) [facility] Start: 05-17-2025 Arthroscopy of knee Arthroscopy, Knee (Left) [facility] Start: 05-17-2025 Anaerobic Culture Anaerobic Culture [facility] Start: 05-17-2025 Body Fluid Culture Body Fluid Culture [facility] Start: 05-17-2025 Hospital admission, emergency, from emergency room, medical nature [facility] Start: 05-17-2025 Microbial culture, body fluid [facility] Start: 02-28-2025 Subsequent hospital visit by physician 02/28/2025 Hospital Encounter [facility] [address] [place] [address] Yesenia Boudreaux MD [address] [place] [address] Dysphagia, unspecified type [R13.10] [facility] Comment on above: Dysphagia, unspecified type [R13.10] Start: 12-12-2024 End: 12-12-2024 Admission to same day surgery center 12/12/2024 10:00 AM EST - 12/12/2024 11:00 AM EST Surgery [facility] [address] [place] [address] Yesenia Boudreaux MD [address] [place] [address] ESOPHAGEAL MANOMETRY [facility] Comment on above: ESOPHAGEAL MANOMETRY Start: 12-12-2024 End: 12-12-2024 Esophageal motility study w/interp&rpt ESOPHAGEAL MANOMETRY Dysphagia, unspecified type 12/12/2024 10:00 AM EST [facility] Start: 12-12-2024 Subsequent hospital visit by physician 12/12/2024 10:00 AM EST Hospital Encounter [facility] [address] [place] [address] Yesenia Boudreaux MD [address] [facility] [address] [place] [address] Dysphagia, unspecified type [R13.10] [facility] Comment on above: Dysphagia, unspecified type [R13.10] Start: 11-27-2024 Advance Directive Discussion Advance Directive Discussion [facility] Start: 07-28-2024 Covid-19 Vaccine () Covid-19 Vaccine () [facility] Start: 07-28-2024 Influenza vaccination Influenza Vaccine (#1) [facility] Start: 11-27-2023 Advance Directive Discussion Advance Directive Discussion [facility] Start: 08-28-2023 Patient discharge [facility] Start: 11-29-2017 End: 11-29-2017 Appointment Appointment [facility] Work Phone: Start: 04-13-2017 End: 04-13-2017 Follow Up Appt 6 months Follow Up Appt 6 months [facility] Work Phone: Start: 04-13-2017 End: 04-13-2017 PFM PFM [facility] Work Phone: Start: 10-12-2016 End: 04-07-2017 Follow Up Appt 6 months Follow Up Appt 6 months [facility] Work Phone: Start: 10-12-2016 End: 04-07-2017 Follow Up Appt Other Follow Up Appt Other [facility] Work Phone: Start: 10-12-2016 End: 04-07-2017 MMM MMM [facility] Work Phone: Start: 04-05-2016 End: 04-05-2016 Follow Up Appt 6 months Follow Up Appt 6 months [facility] Work Phone: Start: 04-05-2016 End: 10-18-2016 Follow Up Appt Other Follow Up Appt Other [facility] Work Phone: Start: 04-05-2016 End: 04-05-2016 PFM PFM [facility] Work Phone: Start: 10-05-2015 End: 10-05-2015 Follow Up Appt 6 months Follow Up Appt 6 months [facility] Work Phone: Start: 10-05-2015 End: 10-18-2016 Follow Up Appt Other Follow Up Appt Other [facility] Work Phone: Start: 10-05-2015 End: 10-05-2015 MMM MMM [facility] Work Phone: Start: 09-17-2015 End: 10-18-2016 *Hepatic Function Panel *Hepatic Function Panel [facility] Work Phone: Start: 09-17-2015 End: 10-18-2016 Lipid panel [AGGREGATE] *Lipid Profile CC PCP [facility] Work Phone: Start: 03-17-2015 End: 03-17-2015 Electrocardiogram, complete EKG (In office) [facility] Work Phone: Start: 03-17-2015 End: 03-17-2015 Follow Up Appt 6 months Follow Up Appt 6 months [facility] Work Phone: Start: 03-17-2015 End: 03-17-2015 Follow Up Appt Other Follow Up Appt Other [facility] Work Phone: Start: 03-17-2015 End: 03-17-2015 PFM PFM [facility] Work Phone: Start: 09-15-2014 End: 03-29-2016 *Hepatic Function Panel *Hepatic Function Panel [facility] Work Phone: Start: 09-15-2014 End: 09-15-2014 Follow Up Appt 6 months Follow Up Appt 6 months [facility] Work Phone: Start: 09-15-2014 End: 03-04-2015 Follow Up Appt Other Follow Up Appt Other [facility] Work Phone: Start: 09-15-2014 End: 03-18-2015 Lipid panel [AGGREGATE] *Lipid Profile CC PCP [facility] Work Phone: Start: 09-15-2014 End: 09-15-2014 MMM MMM [facility] Work Phone: Start: 03-10-2014 End: 03-10-2014 Follow Up Appt 6 months Follow Up Appt 6 months [facility] Work Phone: Start: 03-10-2014 End: 03-10-2014 Follow Up Appt Other Follow Up Appt Other [facility] Work Phone: Start: 03-10-2014 End: 03-10-2014 Follow Up BP Check Follow Up BP Check [facility] Work Phone: Start: 03-10-2014 End: 03-10-2014 PFM PFM [facility] Work Phone: Start: 09-11-2013 End: 03-17-2014 *Hepatic Function Panel *Hepatic Function Panel [facility] Work Phone: Start: 09-11-2013 End: 09-11-2013 Follow Up Appt 6 months Follow Up Appt 6 months [facility] Work Phone: Start: 09-11-2013 End: 03-17-2014 Lipid panel [AGGREGATE] *Lipid Profile CC PCP [facility] Work Phone: Start: 09-11-2013 End: 09-11-2013 MMM MMM [facility] Work Phone: Start: 05-27-2013 End: 02-24-2014 *Hepatic Function Panel *Hepatic Function Panel [facility] Work Phone: Start: 05-27-2013 End: 02-24-2014 Lipid panel [AGGREGATE] *Lipid Profile [facility] Work Phone: Start: 03-11-2013 End: 03-25-2013 *Hepatic Function Panel *Hepatic Function Panel [facility] Work Phone: Start: 03-11-2013 End: 02-24-2014 Follow Up Appt 6 months Follow Up Appt 6 months [facility] Work Phone: Start: 03-11-2013 End: 03-25-2013 Lipid panel [AGGREGATE] *Lipid Profile [facility] Work Phone: Start: 03-11-2013 End: 02-24-2014 PFM PFM [facility] Work Phone: Start: 08-27-2012 End: 03-25-2013 *Hepatic Function Panel *Hepatic Function Panel [facility] Work Phone: Start: 08-27-2012 End: 02-27-2013 Follow Up Appt 6 months Follow Up Appt 6 months [facility] Work Phone: Start: 08-27-2012 End: 03-25-2013 Lipid panel [AGGREGATE] *Lipid Profile [facility] Work Phone: Start: 02-23-2012 End: 02-23-2012 Echocardiography Echocardiogram (complete) [facility] Work Phone: Start: 02-23-2012 End: 02-23-2012 Electrocardiogram, complete EKG (In office) [facility] Work Phone: Start: 02-23-2012 End: 02-27-2013 Follow Up Appt 6 months Follow Up Appt 6 months [facility] Work Phone: Start: 02-23-2012 End: 02-23-2012 Nuclear stress test -exercise Nuclear stress test -exercise [facility] Work Phone: Start: 2011 Prostate specific antigen measurement Prostate Cancer Screening Discussion [facility] Start: 2006 Pneumococcal Vaccine: 50+ (1 of 1 - PCV) Pneumococcal Vaccine: 50+ (1 of 1 - PCV) [facility] Start: 2006 Screening for malignant neoplasm of lung Lung Cancer Screening [facility] Start: 2006 Shingrix Vaccine (1 of 2) Shingrix Vaccine (1 of 2) [facility] Start: 2001 Diabetes Screening Diabetes Screening [facility] Start: 2001 Prostate specific antigen measurement Prostate Cancer Screening Discussion [facility] Start: 2001 Screening for malignant neoplasm of colon [facility] Start: 1991 Lipid panel Lipid Screening [facility] Start: 1975 Urine microalbumin profile DTaP,Tdap,Td Vaccine (1 - Tdap) [facility] Start: 1974 Anxiety Screening Anxiety Screening [facility] Start: 1974 Depression Screening Depression Screening [facility] Start: 1974 Hepatitis C screening Hepatitis C Screening [facility] Start: 1956 Abdominal aortic aneurysm screening Abdominal Aortic Aneurysm Screening [facility] Bacteria identified in Body fluid by Culture [facility] Bacteria identified in Unspecified specimen by Anaerobe culture [facility] Electrocardiographic procedure [facility] Esophageal motility study w/interp&rpt ESOPHAGEAL MANOMETRY Dysphagia, unspecified type [facility] NM Heart Views W str ess and W radionuclide IV [facility] Patient Education [facility] Work Phone: Patient referral [facility] Work Phone: Immunizations Immunization Date Immunization Notes Care Provider Vince quezada 04-22-2021 SARS-CoV-2 (COVID-19 ) mRNA-1273 vaccine CAMDEN BRIONES DO [facility] 03-25-2021 SARS-CoV-2 (COVID-19 ) mRNA-1273 vaccine CAMDEN BRIONES DO [facility] Payers Date Payer Category Payer Unknown [id number] 2024 Private Health Insurance [id number] 2024 Medicaid [id number] 2024 Medicare AETNA MEDICARE A ETNA MEDICARE ASSURE HMO D SNP [id number] 2024-Present [phone] [address] [place] [address] Medicare [id number] 2024 Medicare (Managed Care) [id number] 2024 Self-pay [id number] 2024 Unknown [id number] 2023 Unknown [id number] 2013 Unknown [facility] [id number] 1956 Unknown [id number] 1956 Unknown [id number] 1956 Unknown [id number] 1956 Unknown [id number] 1955 Unknown [id number] Medicare MEDICARE PART A B [id number] 1 [id number] Unknown [id number] Unknown [id number] Unknown [id number] Social History Date Type Detail Facility Start: 07-08-2019 Light tobacco smoker (finding) [facility] Sex Assigned At [facility] Start: 06-09-2023 End: 08-17-2023 Tobacco smoking status KYIS Unknown if ever smoked [facility] Start: 1955 Sex Assigned At Male [facility] Start: 09-03-2019 End: 05-17-2025 Tobacco smoking status KYIS Smokes tobacco daily [facility] Start: 05-05-1974 History of tobacco use Cigarette Smo ker [facility] Start: 09-03-2019 End: 10-19-2019 Cigarettes smoked current (pack per day) - Reported 1 [facility] Start: 09-03-2019 Tobacco use and exposure Smokeless tobacco non-user [facility] Start: 11-12-2024 Alcoholic beverage intake Current non-drinker of alcohol (finding) [facility] Start: 10-19-2019 End: 11-12-2024 Tobacco use panel [facility] PHQ[facility] [facility] Start: 1955 Sex assigned at Not on file [facility] Start: 03-17-2025 Sex Male (finding) [facility] Medical Equipment Procedure Code Equipment Code Equipment Origin al Text Equipment Identifier Dates Repair, hernia, ventral or umbilical, laparoscopic ([id number]) Extra-gynaecologic al surgical mesh, composite-polymer ()[id number] FDA Start: 08-28-2023 Repair, hernia, ventral or umbilical, laparoscopic Endoscopic manual linear stapler ()[id number] FDA Start: 08-28-2023 Goals Date Patient Goal Desired Activity /State Functional Status Date Assessment Result Facility 10-21-2024 Functional Status Repositions self [facility] 10-21-2024 Functional Status Maintained [facility] 05-05-2014 Are you deaf, or do you have serious difficulty hearing No 05/05/2014 12:02 PM EDT Karo Simeon RN No [facility] 05-05-2014 Are you blind, or do you have serious difficulty seeing, even when wearing glasses No 05/05/2014 12:02 PM EDT Karo Simeon RN No [facility] 05-05-2014 Do you have serious difficulty walking or climbing stairs No 05/05/2014 12:02 PM EDT Karo Simeon RN No [facility] 05-05-2014 Do you have difficul ty dressing or bathing No 05/05/2014 12:02 PM EDKaro Gagnon RN [facility] 05-05-2014 Because of a physica l, mental, or emotional condition, do you have difficulty doing errands alone such as visiting a physician's office or shopping No 05/05/2014 12:02 PM EDKaro Gagnon RN No [facility] Mental Status Date Assessment Result Facility 10-21-2024 Mental Status Orientation Oriented x 4 [facility] 10-21-2024 Mental Status [facility] 08-28-2023 Cognitive function Voice/Name [facility] Work Phone: 05-05-2014 Because of a physica l, mental, or emotional condition, do you have serious difficulty concentrating, remembering, or making decisions No 05/05/2014 12:02 PM EDT Karo Simeon RN No [facility] Clinical Notes 08-28-2023 to 05-17-2025 Note Date & Type Note Facility 05-17-2025 Consult note [facility] 05-17-2025 Consult note [facility] 05-17-2025 Discharge summary Note Date/Time May 17, 2025 1:50pm [facility] Medical Records Department [address] [place] [address] Emergency Department Summary 05/17/25 MR#: [id number] Acct: [id number] Name: LUKE DOLAN Rep #:[id number] : 1955 69 From: Mynor De Leon MD PCP: TYRONE DEJESUS 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 He did do some slight lifting prior to the onset of his back pain. Nothing with respect to the knee pain) Timing: Continuous (For both) Quality: Dull (Lower back) and Aching (Left knee) Location: Lumbar, Buttock and Left Leg Current Severity: Mild Maximum Severity: Moderate Worsened by: improves with Movement Relieved by: Nothing Associated Symptoms Associated Symptoms: Radiation to Left Leg and - (No status anesthesia or paresthesia.); Negative for Numbness, Tingling, Radiation to Right Leg, Fever, Abdominal Pain, Dysuria, Unable to Ambulate, Unable to Transfer, Urinary Retention, Urinary Incontinence, Constipation or Fecal Incontinence Narrative Narrative: Patient is a 69-year-old male. He has history of syncope and collapse, essential hypertension, coronary disease with stent placement, and GERD. He presents with atraumatic low back pain. Does have history of indirect trauma oflifting. He reported pain going down the posterior aspect of his left leg to his heel/foot. He denies any radicular pain at this time. He denied bowel bladder function. No saddle paresthesia or anesthesia. She had no recent dental procedure. He denies fever, chills night sweats. He does have history of back problems. With respect to the knee he states it began to swell and have pain. He denies history of gout or pseudogout. He denies any direct or indirect trauma. He hada prior injury where a lawnmower blade went into his knee. There is a scar noted. Prior similar symptoms: Yes and With Prior Back Pain Recent Illness/Hospitalization: No PFSH PFS Medical History Diabetes High cholesterol Back pain Gastric reflux Smoker Cardiology follow-up encounter Presence of stent in coronary artery (~08/2008) Essential hypertension Ventral incisional hernia without obstruction or gangrene Hyperlipidemia Acute KS, anterior wall, subsequent episode of care Old myocardial infarction Syncope and collapse Dyspnea Chest pain Long-term use of high-risk medication Atherosclerotic heart disease of [place] coronary artery without angina pectoris Home Medications ?Medication ?Instructions ?Recorded ?Last Taken ?Type fenofibrate 160 mg tablet 160 mg PO DAILY #30 tabs 05/16/25 Rx rosuvastatin 40 mg tablet (Crestor) 40 mg PO DAILY 09/1405/17/25 History lisinopril 40 mg tablet 40 mg PO DAILY #90 tabs 11/2705/17/25 Rx aspirin 81 mg tablet,delayed 81 mg PO DAILY 08/17/23 0 05/16/25 History release (Adult Aspirin Regimen) clopidogrel 75 mg tablet 75 mg PO DAILY #90 tabs 04/2805/17/25 Rx ezetimibe 10 mg tablet 10 mg PO DAILY 05/17/2504/28 History hydrocodone-acetaminophen 5-325mg 1 tab PO Q6H PRN PRN Pain 3 days 05/17/25 Unknown Rx 5mg-325mg #10 TABLETS metformin 500 mg tablet,extended 500 mg PO BID 5 05/17/25 History release 24 hr oxycodone-acetaminophen 5 mg-325 1 tab PO Q6H 05/17/25 05/16/25 History mg tablet pantoprazole 40 mg tablet,delayed 40 mg PO DAILY 05/1705/17/25 History release Allergy/AdvReac Type Severity Reaction Status Date / Time atorvastatin calcium (From AdvReac Pain in Verified 05/17/25 09:30 Lipitor) joints Family History Father CAD (coronary artery disease) Diabetes Thyroid disorder Hypertension Cancer lung Mother Hypertension Aneurysm Brother CAD (coronary artery disease) Sister Congestive heart failure Surgical History History of ventral hernia repair (~08/2023) History of coronary artery stent placement History of cardiac catheterization History of cataract surgery Presence of coronary angioplasty implant and graft (~08/2008) History of umbilical hernia repair History of cholecystectomy (~02/2012) History of hernia repair History of tonsillectomy Social History Smoking Status: Current every day smoker tobacco type: cigarettes alcohol intake: current alcohol intake frequency: holidays/special occasions only substance use type: does not use caffeine: Yes ROS ROS ED Constitutional Constitutional ED: Denies chills, fever(s), subjective or sweats Eyes Eyes: Denies blurry vision or change in vision ENT ENT ED: Denies rhinorrhea or sore throat Cardiovascular Cardiovascular: Denies chest pain, orthopnea, palpitations or paroxysmal nocturnal dyspnea Respiratory/Chest Respiratory/Chest: Denies dyspnea, dyspnea on exertion, orthopnea or paroxysmal nocturnal dyspnea Gastrointestinal Gastrointestinal: Denies abdominal pain, constipation, diarrhea, melena, nausea or vomiting Genitourinary Genitourinary ED: Denies dysuria, hematuria or urinary frequency Musculoskeletal Musculoskeletal: Reports back pain and other Details: Left knee pain and swelling ; Denies arthralgias, myalgias or neck pain Integumentary Denies abscess, Abrasions or rash Neurologic Neurologic: Denies headache(s), paresthesias or weakness Endocrine Endocrinology: Denies cold intolerance or heat intolerance Hematologic/Lymphatic Hematologic/Lymphatic: Denies easy bleeding or easy bruising EXAM Physical Exam Const Vital Signs: 05/17/25 09:30 Temperature 98.1 F Temperature Source Temporal Pulse Rate 93 Respiratory Rate 14 Blood Pressure 184/94 H Blood Pressure Mean 124 Pulse Ox 99 Oxygen Delivery Method Room Air Positive well nourished and well developed General Appearance ED: well developed and NAD HEENT Reports moist mucous membranes HEENT Narrative: Head is atraumatic and normocephalic. Ears normal. Nares patent. Eyes PERRL and EOMs intact bilaterally General Eye ED: Negative for pale conjunctiva or scleral icterus Neck no lymphadenopathy, supple and no JVD Resp normal respiratory effort and clear to auscultation bilaterally Cardio regular rate, regular rhythm, S1 normal heart sound, S2 normal heart sound and no murmurs GI normal to inspection, nondistended, normoactive bowel sounds, soft to palpation,non-tender, non-distended and no masses Back/Spine normal to inspection; Negative for no thoracic nor lumbar tenderness Back/Spine Narrative: Midline posterior lumbar pain. Movement does cause him pain. Straight leg testis negative bilaterally. Patellar reflex was not assessed on the left knee because of the significant swelling and pain. DTRs are symmetric. EHLs intact bilateral. He has a palpable PT and DP pulse bilaterally 3+. Normal sensation L3-S1 dermatome. 5/5 strength with plantar and dorsiflexion of the foot. Quadricep strength was not assessed because of his left knee pain and effusion. He still has hair on his toes. There are no dermatologic lesions noted. General Back: Negative for CVA tenderness Cervical Spine: Negative for paracervical muscle tenderness Lumbar Spine / Lower Back: ROM limited and straight leg raise negative bilaterally Extremity normal to inspection and no clubbing, cyanosis or edema Neuro oriented x3 and no sensory deficits noted Sensorium / Orientation: alert Deep Tendon Reflexes: Rt Patellar (L4): 2+, Rt Ankle (S1): 2+ and Lt Ankle (S1):2+ Deep Tendon Reflexes Back: Rt Patellar (L4): 2+, Rt Ankle (S1): 2+ and Lt Ankle (S1): 2+ Plantar Reflex: Downgoing: bilateral (There was no clonus noted either) Psych mental status grossly normal Skin no rashes or lesions noted and no wounds MDM MDM MDM Narrative Medical decision making narrative: Suspect back pain is a muscular etiology. He does not have recent imaging and the fact that he is elderly diabetic will obtain x-ray to assess for degenerative changes versus spondylolisthesis versus lytic or blastic lesions. With respect to the knee need to evaluate for crystal induced versus osteogenic arthritis versus pyogenic arthritis. The knee does not feel slightly warm. Blood pressure is elevated which may due to the fact that he is in pain. He received 15 mg of ketorolac IV push. Workup included x-ray of the back and knee, blood work which included CBC, electrolyte panel, CRP and ESR. Lab Data Attestation: I reviewed the patient's lab results. Lab results narrative: ESR is slightly elevated 45. C-reactive protein is elevated at 19.8. White count is elevated 17.5 thousand. Differential is unremarkable. H&H is unremarkable. Labs: Laboratory Results - last 24 hr 05/17/25 05/17/25 09:50 11:32 WBC 17.5 H RBC 5.43 Hgb 15.5 Hct 46.6 MCV 85.8 MCH 28.5 MCHC 33.3 RDW Std Deviation 44.8 H RDW Coeff of Kranthi 14.3 Plt Count 297 MPV 9.1 Immature Gran % (Auto) 0.200 Neut % (Auto) 51.0 Lymph % (Auto) 37.9 [place] % (Auto) 9.4 Eos % (Auto) 1.0 Baso % (Auto) 0.5 Absolute Neuts (auto) 8.9 H Absolute Lymphs (auto) 6.61 H Nucleated RBC % 0 ESR 45 H Sodium 135 Potassium 4.0 Chloride 101 Carbon Dioxide 20.2 L Anion Gap 14 BUN 12 Creatinine 0.87 Estim Creat Clear Calc 80.05 Est GFR (MDRD) Non-Af 94 BUN/Creatinine Ratio 13.7 Glucose 112 H Calcium 9.6 Total Bilirubin 0.47 AST 19 ALT 9 Alkaline Phosphatase 66 C-React Prot Ext Range 19.80 H Total Protein 7.1 Albumin 4.0 Globulin 3.1 Albumin/Globulin Ratio 1.3 Fluid Crystals NO CRYSTALS SEEN Fluid Crystal Source SYNOVIAL Fl Crystal Path Review Will follow Synovial Source LT KNEE Synovial Color Yellow Synovial Appearance Cloudy Synovial Viscosity Mod. Viscous Synovial WBC 15.3600 H Synovial RBC 0.008 H Synovial Tot Cell Ct 15.3980 H Synov Polynuclear WBCs 11.969 Synov Mononuclear WBCs 1.353 Synovial Neutrophils 73 H Synovial Lymphocytes 1 Synovial Monocytes 26 Synovial Polynuclear % 89.8 Synovial Mononuclear % 10.[address] Comment May follow Radiography Chest X-Ray - ED: 2 View (2 view x-ray of the LS spine feels minimal degenerative changes with lipping of the vertebral body anteriorly. There is also significant ossification of the aorta and iliac vessels. There is no dilatation to suggest aneurysm. This was independent reviewed and interpreted by me as well.) and Read by ED Physician (Three-view x-ray of the knee reveals chondrocalcinosis with effusion. There is also some mild degenerative changes noted. This was independently reviewed interpreted by me at 1119.) Diagnostic Testing: Clinical Impression(s) from Imaging Studies Knee X-Ray 05/17/25 11:10 IMPRESSION: No acute fracture or dislocations. Mild to moderate degenerative changes of theleft knee with chondrocalcinosis. Moderate soft tissue edema. Large joint effusion. No radiographic foreign body. Reading Location: [facility] Lumbar Spine X-Ray 05/17/25 11:10 IMPRESSION: No acute process identified. Degenerative disc disease Reading Location: [facility] Management Discussion w/another healthcare provider: Environmental Systems Coordinator (Spoke to Dr. Gonzales. Marni be in to see patient and take him to the OR for pyogenic arthritis based onGram stain.) Procedures Other Procedures Procedure(s): Arthrocentesis left knee: Patient was informed the risk benefits. Was given opportunity ask questions. None were asked. He was informed of my complications. Patient was prepped draped sterile manner. There was anesthetized with 1% lidocaine by local infiltration. 70 cc of a slightly turbid initially bloody fluid was aspirated. A mixture of 9 cc lidocaine 1 cc Kenalog was injected after aspiration of fluid. Fluid was sent for appropriate studies. Discharge Plan Dx/Rx/DC Orders Clinical Impression: Septic arthritis of knee, left, Hyperlipidemia, Nicotine dependence, Essential hypertension, Acute bilateral low back pain, DDD (degenerative disc disease), lumbar, Abdominal aortic atherosclerosis, Chondrocalcinosis of left knee Disposition Disposition: [facility] What to do if you have Problems For any increased pain, shortness of breath, bleeding, nausea or vomiting, chestpain, or any unexpected problems, contact your Primary Care Provider. Call [facility] ([phone]) or report to the closest Emergency Room. Call 911 if necessary. 05/17/25 1350 <Electronically signed by Mynor De Leon MD> Cosigner Signature (if applicable): CC: TYRONE MORGAN-Bredna DEJESUS ~ Signed [facility] Work Phone: [phone] Discharge summary [facility] Medical Records Department [address] [place] [address] Emergency Department Summary 05/17/25 MR#: [id number] Acct: [id number] Name: LUKE DOLAN Rep #:[id number] : 1955 69 From: Mynor De Leon MD PCP: TYRONE DEJESUS Status:REG S DC Location: [facility] A-1 HPI History of Present Illness Chief Complaint: Back Detail of Chief Complaint: Back pain that started prior to left knee pain and swelling Informant: patient Onset/Context/Timing Onset: Weeks (Back pain for approximately 1 week, knee pain for the past severaldays) Context: Sudden Onset Injury: - (No history of direct trauma. He did do some slight lifting prior to the onset of his back pain. Nothing with respect to the knee pain) Timing: Continuous (For both) Quality: Dull (Lower back) and Aching (Left knee) Location: Lumbar, Buttock and Left Leg Current Severity: Mild Maximum Severity: Moderate Worsened by: improves with Movement Relieved by: Nothing Associated Symptoms Associated Symptoms: Radiation to Left Leg and - (No status anesthesia or paresthesia.); Negative for Numbness, Tingling, Radiation to Right Leg, Fever, Abdominal Pain, Dysuria, Unable to Ambulate, Unable to Transfer, Urinary Retention, Urinary Incontinence, Constipation or Fecal Incontinence Narrative Narrative: Patient is a 69-year-old male. He has history of syncope and collapse, essential hypertension, coronary disease with stent placement, and GERD. He presents with atraumatic low back pain. Does have history of indirect trauma oflifting. He reported pain going down the posterior aspect of his left legto his heel/foot. He denies any radicular pain at this time. He denied bowel bladder function. No saddle paresthesia or anesthesia. She had no recent dental procedure. He denies fever, chills night sweats. He does have history of back problems. With respect to the knee he states it began to swell and have pain. He denies history of gout or pseudogout. He denies any direct or indirect trauma. He hada prior injury where a lawnmower blade wentinto his knee. There is a scar noted. Prior similar symptoms: Yes and With Prior Back Pain Recent Illness/Hospitalization: No PFSH PFSH Medical History Diabetes High cholesterol Back pain Gastric reflux Smoker Cardiology follow-up encounter Presence of stent in coronary artery (~08/2008) Essential hypertension Ventral incisional hernia without obstruction or gangrene Hyperlipidemia Acute KS, anterior wall, subsequent episode of care Old myocardial infarction Syncope and collapse Dyspnea Chest pain Long-term use of high-risk medication Atherosclerotic heart disease of [place] coronary artery without angina pectoris Home Medications ?Medication ?Instructions ?Recorded ?Last Taken ?Type fenofibrate 160 mg tablet 160 mg PO DAILY #30 tabs 05/16/25 Rx rosuvastatin 40 mg tablet (Crestor) 40 mg PO DAILY 09/1405/17/25 History lisinopril 40 mg tablet 40 mg PO DAILY #90 tabs 11/2705/17/25 Rx aspirin 81 mg tablet,delayed 81 mg PO DAILY 08/17/23 0 05/16/25 History release (Adult Aspirin Regimen) clopidogrel 75 mg tablet 75 mg PO DAILY #90 tabs 04/2805/17/25 Rx ezetimibe 10 mg tablet 10 mg PO DAILY 05/17/2504/28 History hydrocodone-acetaminophen 5-325mg 1 tab PO Q6H PRN PRN Pain 3 days 05/17/25 Unknown Rx 5mg-325mg #10 TABLETS metformin 500 mg tablet,extended 500 mg PO BID 5 05/17/25 History release 24 hr oxycodone-acetaminophen 5 mg-325 1 tab PO Q6H 05/17/25 05/16/25 History mg tablet pantoprazole 40 mg tablet,delayed 40 mg PO DAILY 05/1705/17/25 History release Allergy/AdvReac Type Severity Reaction Status Date / Time atorvastatin calcium (From AdvReac Pain in Verified 05/17/25 09:30 Lipitor) joints Family History Father CAD (coronary artery disease) Diabetes Thyroid disorder Hypertension Cancer lung Mother Hypertension Aneurysm Brother CAD (coronary artery disease) Sister Congestive heart failure Surgical History History of ventral hernia repair (~08/2023) History of coronary artery stent placement History of cardiac catheterization History of cataract surgery Presence of coronary angioplasty implant and graft (~08/2008) History of umbilical hernia repair History of cholecystectomy (~02/2012) History of hernia repair History of tonsillectomy Social History Smoking Status: Current every day smoker tobacco type: cigarettes alcohol intake: current alcohol intake frequency: holidays/special occasions only substance use type: does not use caffeine: Yes ROS ROS ED Constitutional Constitutional ED: Denies chills, fever(s), subjective or sweats Eyes Eyes: Denies blurry vision or change in vision ENT ENT ED: Denies rhinorrhea or sore throat Cardiovascular Cardiovascular: Denies chest pain, orthopnea, palpitations or paroxysmal nocturnal dyspnea Respiratory/Chest Respiratory/Chest: Denies dyspnea, dyspnea on exertion, orthopnea or paroxysmal nocturnal dyspnea Gastrointestinal Gastrointestinal: Denies abdominal pain, constipation, diarrhea, melena, nausea or vomiting Genitourinary Genitourinary ED: Denies dysuria, hematuria or urinary frequency Musculoskeletal Musculoskeletal: Reports back pain and other Details: Left knee pain and swelling ; Denies arthralgias, myalgias or neck pain Integumentary Denies abscess, Abrasions or rash Neurologic Neurologic: Denies headache(s), paresthesias or weakness Endocrine Endocrinology: Denies cold intolerance or heat intolerance Hematologic/Lymphatic Hematologic/Lymphatic: Denies easy bleeding or easy bruising EXAM Physical Exam Const Vital Signs: 05/17/25 09:30 Temperature 98.1 F Temperature Source Temporal Pulse Rate 93 Respiratory Rate 14 Blood Pressure 184/94 H Blood Pressure Mean 124 Pulse Ox 99 Oxygen Delivery Method Room Air Positive well nourished and well developed General Appearance ED: well developed and NAD HEENT Reports moist mucous membranes HEENT Narrative: Head is atraumatic and normocephalic. Ears normal. Nares patent. Eyes PERRL and EOMs intact bilaterally General Eye ED: Negative for pale conjunctiva or scleral icterus Neck no lymphadenopathy, supple and no JVD Resp normal respiratory effort and clear to auscultation bilaterally Cardio regular rate, regular rhythm, S1 normal heart sound, S2 normal heart sound and no murmurs GI normal to inspection, nondistended, normoactive bowel sounds, soft to palpation,non-tender, non-distended and no masses Back/Spine normal to inspection; Negative for no thoracic nor lumbar tenderness Back/Spine Narrative: Midline posterior lumbar pain. Movement does cause him pain. Straight leg testis negative bilaterally. Patellar reflex was not assessed on the left knee because of the significant swelling and pain. DTRs are symmetric. EHLs intact bilateral. He has a palpable PT and DP pulse bilaterally 3+. Normal sensation L3-S1 dermatome. 5/5 strength with plantar and dorsiflexion of the foot. Quadricep strength was not assessed because of his left knee pain and effusion. He still has hair on his toes. There are no dermatologic lesions noted. General Back: Negative for CVA tenderness Cervical Spine: Negative for paracervical muscle tenderness Lumbar Spine / Lower Back: ROM limited and straight leg raise negative bilaterally Extremity normal to inspection and no clubbing, cyanosis or edema Neuro oriented x3 and no sensory deficits noted Sensorium / Orientation: alert Deep Tendon Reflexes: Rt Patellar (L4): 2+, Rt Ankle (S1): 2+ and Lt Ankle (S1):2+ Deep Tendon Reflexes Back: Rt Patellar (L4): 2+, Rt Ankle (S1): 2+ and Lt Ankle (S1): 2+ Plantar Reflex: Downgoing: bilateral (There was no clonus noted either) Psych mental status grossly normal Skin no rashes or lesions noted and no wounds MDM MDM MDM Narrative Medical decision making narrative: Suspect back pain is a muscular etiology. He does not have recent imaging and the fact that he is elderly diabetic will obtain x-ray to assess for degenerative changes versus spondylolisthesis versuslytic or blastic lesions. With respect to the knee need to evaluate for crystal induced versus osteogenic arthritis versus pyogenic arthritis. The knee does not feel slightly warm. Blood pressure is elevated which may due to the fact that he is in pain. He received 15 mg of ketorolac IV push. Workup included x-ray of the back and knee, blood work which included CBC, electrolyte panel, CRP and ESR. Lab Data Attestation: I reviewed the patient's lab results. Lab results narrative: ESR is slightly elevated 45. C-reactive protein is elevated at 19.8. White count is elevated 17.5 thousand. Differential is unremarkable. H&H is unremarkable. Labs: Laboratory Results - last 24 hr 05/17/25 05/17/25 09:50 11:32 WBC 17.5 H RBC 5.43 Hgb 15.5 Hct 46.6 MCV 85.8 MCH 28.5 MCHC 33.3 RDW Std Deviation 44.8 H RDW Coeff of Kranthi 14.3 Plt Count 297 MPV 9.1 Immature Gran % (Auto) 0.200 Neut % (Auto) 51.0 Lymph % (Auto) 37.9 [place] % (Auto) 9.4 Eos % (Auto) 1.0 Baso % (Auto) 0.5 Absolute Neuts (auto) 8.9 H Absolute Lymphs (auto) 6.61 H Nucleated RBC % 0 ESR 45 H Sodium 135 Potassium 4.0 Chloride 101 Carbon Dioxide 20.2 L Anion Gap 14 BUN 12 Creatinine 0.87 Estim Creat Clear Calc 80.05 Est GFR (MDRD) Non-Af 94 BUN/Creatinine Ratio 13.7 Glucose 112 H Calcium 9.6 Total Bilirubin 0.47 AST 19 ALT 9 Alkaline Phosphatase 66 C-React Prot Ext Range 19.80 H Total Protein 7.1 Albumin 4.0 Globulin 3.1 Albumin/Globulin Ratio 1.3 Fluid Crystals NO CRYSTALS SEEN Fluid Crystal Source SYNOVIAL Fl Crystal Path Review Will follow Synovial Source LT KNEE Synovial Color Yellow Synovial Appearance Cloudy Synovial Viscosity Mod. Viscous Synovial WBC 15.3600 H Synovial RBC 0.008 H Synovial Tot Cell Ct 15.3980 H Synov Polynuclear WBCs 11.969 Synov Mononuclear WBCs 1.353 Synovial Neutrophils 73 H Synovial Lymphocytes 1 Synovial Monocytes 26 Synovial Polynuclear % 89.8 Synovial Mononuclear % 10.2 Synovial Path Comment May follow Radiography Chest X-Ray - ED: 2 View (2 view x-ray of the LS spine feels minimal degenerative changes with lipping of the vertebral body anteriorly. There is also significant ossification of the aorta and iliac vessels. There is no dilatation to suggest aneurysm. This was independent reviewed and interpreted by me as well.) and Read by ED Physician (Three-view x-ray of the knee reveals chondrocalcinosis witheffusion. There is also some mild degenerative changes noted. This was independently reviewed interpreted by me at 1119.) Diagnostic Testing: Clinical Impression(s) from Imaging Studies Knee X-Ray 05/17/25 11:10 IMPRESSION: No acute fracture or dislocations. Mild to moderate degenerative changes of theleft knee with chondrocalcinosis. Moderate soft tissue edema. Large joint effusion. No radiographic foreign body. Reading Location: [id number] Lumbar Spine X-Ray 05/17/25 11:10 IMPRESSION: No acute process identified. Degenerative disc disease Reading [facility] Management Discussion w/another healthcare provider: Environmental Systems Coordinator (Spoke to Dr. Gonzales. Hewill be in to see patient and take him to the OR for pyogenic arthritis based onGram stain.) Procedures Other Procedures Procedure(s): Arthrocentesis left knee: Patient was informed the risk benefits. Was given opportunity ask questions. None were asked. He was informed of my complications. Patient was prepped draped sterile manner. There was anesthetized with 1% lidocaine by local infiltration. 70 cc of a slightly turbid initially bloody fluid was aspirated. A mixture of 9 cc lidocaine1 cc Kenalog was injected after aspiration of fluid. Fluid was sent for appropriate studies. Discharge Plan Dx/Rx/DC Orders Clinical Impression: Septic arthritis of knee, left, Hyperlipidemia, Nicotine dependence, Essential hypertension, Acute bilateral low back pain, DDD (degenerative disc disease), lumbar, Abdominal aortic atherosclerosis, Chondrocalcinosis of left knee Disposition Disposition: [facility] What to do if you have Problems For any increased pain, shortness of breath, bleeding, nausea or vomiting, chestpain, or any unexpected problems, contact your Primary Care Provider. Call [facility] ([phone]) or report tothe closest Emergency Room. Call 911 if necessary. 05/17/25 1350 Cosigner Signature (if applicable): CC: TYRONE HORTON OLEG ~ Signed [facility]06-21-2025 Radiology Diagnostic study note [facility] Imaging Services [address] [place] [address] Lumbar Spine 2 or 3 Views MR#: [id number] Acct: [id number] Name: LUKE DOLAN Rep #: [id number] : 1955 M 69 From: Pet er Peer DO PCP: TYRONE DEJESUS Status: REG E R Study:Lumbar Spine 2 or 3 Views Date of Exam: 05/17/25 Exam# [id number] Ordering Dr: Oh De Leon MD PROCEDURE: LUMBAR SPINE 2 OR 3 VIEWS 05/17/2025 REASON FOR EXAM: INJURY/PAIN Initial encounter TECHNIQUE: LUMBAR SPINE 2 OR 3 VIEWS COMPARISON: None. FINDINGS: Vertebrae: Normal height. No vertebral body fracture. Discs: Loss of disc height at L4-5 and L5-S1 Alignment: Normal AP alignment with normal lumbar lordosis Other: RAD/Lumbar Spine 2 or 3 Views IMPRESSION: No acute process identified. Degenerative disc disease Reading Location: [facility]- CC: Dr. Mynor De Leon MD; TYRONE PUBLIC RECORDS OFFICER-C OLEG ~ Ager Operator: Signed [facility]06-21-2025 Radiology Diagnostic study note [facility] Imaging Services [address] [place] [address] Knee 4 or More Views MR#: [id number] Acct: [id number] Name: LUKE DOLAN Rep #: [id number] : 1955 M 69 From: Yaneth Amor MD PCP: TYRONE DEJESUS Status: REG E R Study:Knee 4 or More Views Date of Exam: 05/17/25 Exam# [id number] Ordering Dr: Oh De Leon MD PROCEDURE: KNEE 4 OR MORE VIEWS 05/17/2025 REASON FOR EXAM: INJURY/PAIN TECHNIQUE: KNEE 4 OR MORE VIEWS COMPARISON: none RAD/Knee 4 or More Views IMPRESSION: No acute fracture or dislocations. Mild to moderate degenerative changes of theleft knee with chondrocalcinosis. Moderate soft tissue edema. Large joint effusion. No radiographic foreign body. Reading Location: [facility] CC: Dr. Mynor De Leon MD; TYRONE DEJESUS ~ Ager Operator: Signed [facility]06-02-2025 Telephone encounter Note* Telephone Encounter - Phoenix Thompson RN - 04/28/2025 4:36 PM EDT Opened in error [facility]06-02-2025 Miscellaneous Notes* Telephone Encounter - Phoenix Thompson RN - 04/28/2025 4:36 PM EDT Opened in error [facility] Telephone encounter Note * Telephone Encounter - Phoenix Thompson RN - 04/23/2025 2:30 PM EDT I called and left a message on 04/11/25 and again today in an attempt to reschedule esophageal manometry. I left my contact information. Phoenix Thompson RN [facility]05-28-2025 Miscellaneous Notes* Telephone Encounter - Phoenix Thompson RN - 04/23/2025 2:30 PM EDT I called and left a message on 04/11/25 and again today in an attempt to reschedule esophageal manometry. I left my contact information. Phoenix Thompson RN [facility] Telephone encounter Note * Telephone Encounter - Phoenix Thompson RN - 03/17/2025 10:24 AM EDT I called patient to reschedule his esophageal manometry but patient asked if I would call him back in a week. He said he is scheduled for another test at [place] and would like to get that completed first. I agreed to call him back. Phoenix Thompson RN [facility]04-21-2025 Miscellaneous Notes* Telephone Encounter - Phoenix Thompson RN - 03/17/2025 10:24 AM EDT I called patient to reschedule his esophageal manometry but patient asked if I would call him back in a week. He said he is scheduled for another test at [place] and would like to get that completed first. I agreed to call him back. Phoenix Thompson RN documented [facility] Telephone encounter Note * Telephone Encounter - Tess White LPN - 12/11/2024 2:58 PM EST Rescheduled for 02/28/2025 10am. Tess White LPN [facility] Work Phone: [phone] Miscellaneous Notes* Telephone Encounter - Tess White LPN - 12/11/2024 2:58 PM EST Rescheduled for 02/28/2025 10am. Tess White LPN * Telephone Encounter - Tess White LPN - 12/11/2024 11:37 AM EST Patient called and cancelled manometry for 12/12/24, does not want to reschedule until late January early February. Tess White LPN documented [facility] encounter[facility] Telephone encounter Note * Telephone Encounter - Tess White LPN - 12/11/2024 11:37 AM EST Patient called and cancelled manometry for 12/12/24, does not want to reschedule until late January early February. Tess White LPN [facility]01-06-2025 Telephone encounter Note* Telephone Encounter - Phoenix Thompson, LUZ - 12/02/2024 4:33 PM EST I called patient and informed him that per Dr. Briones, he is to start holding his Plavix on 12/06/24 and restart it on 12/13/24. Patient agreed with the plan. Phoenix Thompson RN [facility]01-06-2025 Miscellaneous Notes* Telephone Encounter - Phoenix Thompson RN - 12/02/2024 4:33 PM EST I called patient and informed him that per Dr. Briones, he is to start holding his Plavix on 12/06/24 and restart it on 12/13/24. Patient agreed with the plan. Phoenix Thompson RN documented in [facility] encounterTri[facility] Telephone encounter Note * Telephone Encounter - Pat Martin LPN - 11/29/2024 9:07 AM EST Clearance/medication recommendation scanned into chart for review [facility]01-03-2025 Miscellaneous Notes* Telephone Encounter - Pat Martin LPN - 11/29/2024 9:07 AM EST Clearance/medication recommendation scanned into chart for review [facility] Telephone encounter Note * Telephone Encounter - Phoenix Thompson RN - 11/12/2024 11:11 AM EST I called the patient and verbally discussed [...] with Dr. Wilde for test results. Phoenix Thompson RN [facility]12-17-2024 Miscellaneous Notes* Telephone Encounter - Phoenix Thompson RN - 11/12/2024 11:11 AM EST I called the patient and verbally discussed [...] with Dr. Wilde for test results. Phoenix Thompson RN documented in this encounterTri[facility]12-[facility]24 Note ORIGINAL HISTORY: Reflux and dysphagia COMPARISON: [...] Sign Date: 10/31/2024 11:49:46 AM Ordering Provider: [facility]11-25-2024 Evaluation + Plan noteExtracted from: Title:Clinical Document Author:LOCO WILDE Date:10/21/24 [place] ADMISSION HISTORY AN D PHYSICIAL CHIEF COMPLAINT: HISTORY OF PRESENT ILLNESS: REVIEW OF SYSTEMS: ACTIVE PROBLEMS: (20) Back spasm (913673659) Cervical disc disease (4211666725) Chronic neck and back pain (167798976) COPD without exacerbation (04941217) Coronary artery disease (0906084484) DDD (degenerative disc disease), lumbar (52456351) Diabetes mellitus (511500889) Dysphagia (211264535) Esophageal reflux disease (518523076) Essential hypertension (53148409) Hx [place], P/S, hernia repair x7, smoker Hyperlipidemia (518190212) Left hip pain (88749021) Leukocytosis (666181303) Primary insomnia (8822169) Screening for prostate cancer (788481636) Smokes less than 1 pack a day with greater than 40 pack year history (738414773) Tobacco dependence due to cigarettes (2975935218) Tobacco use (5572542833) Ventral hernia (1664734267) MEDICATIONS: Active Inpt Meds: None Active PRN Meds: None One Time Meds: None Active IV Meds: Lactated Ringers Infusion 1,000 mL (LR 1,000 mL) Start: 10/21/24 7:42:00 EST, Rate: 50 mL/hr, 10/21/24 7:42:00 EST ALLERGIES: (1) Zetia FAMILY HISTORY: SOCIAL HISTORY: PHYSICAL EXAM: VITALS: SrvwmfErdaDONvbojDQXoT0RWF3PwqqQf(kg) 10/21 07:5436.2--393341EL31/25 76.2 24 Hr Tmax: 36.2 at 10/21 [...] Tablet Appointment Date:11/06/2024 11:00:00 AM Scheduled Provider:CAMDEN BRIONES DO Location:[facility] Appointment Type:PC OV Controlled Medication Future Scheduled Tests Laboratory* Complete Blood Count 07/30/24 * Lipid Profile 07/30/24 * Albumin/Creatinine Ratio, Random Urine 05/01/24 Radiology* XR Esophogram W/Barium Tablet 10/31/24 [facility] 11-25-2024 Hospital Discharge instructions Patient Education [...] before eating solid foods. General instructions Take gkhx-aef-tsyyeej and prescription medicines only as told by [...] 03/05/2017 Document Revised: 02/11/2019 Document Reviewed: 03/05/2017 [employer] Patient Education 2020 ulike. 10/21/2024 09:40:15 9 - AO Minor Esophagogastroduodenoscopy [...] Up Care 10/17/2024 07:45:04 With:LOCO WILDE Address: [address] [phone] Business (1) When: Unknown [facility] 11-25-2024 Note Date of Service 10/21/2024 Procedure Name EGD with biopsy Consent Taken before procedure Indication Patient with dysphagia Location [facility] Pre-Procedure Exam Dysphagia Procedural Sedation Anesthesia [...] ESOPHAGOGASTRODUODENOSCOPY WITH BIOPSY, DYSPHAGIA, DYSPHAGIA, Preferred Lab: [facility], [id number] Post Procedure Assessment, 10/21/24 9:38:00 EST, Stop [...] LOCO WILDE MD on 10/21/2024 09:41 AM [facility]11-25-2024 Note Discharge Instructions Thank you for allowing [facility] to assist you with your healthcare needs. The following is importantdischarge information regarding your hospital visit. Your Care Team CAMDEN BRIONES DO What to do next Scheduled Follow-Up Appointments Appointment Type When With Where Contact Information StatusXR Esophogram W/Barium Tablet 0:30 AM [facility] Radiology [phone] Confirmed PC OV Controlled Medication 11/06/2024 11:00 AM [facility] Confirmed Follow Up Appointments Follow Up with LOCO WILDE Where:[address] [place] [phone] Business (1) The Following Activity and Diet Have [...] before eating solid foods. General instructions Take nbph-ytr-ynifzmq and prescription medicines only as told by [...] 03/05/2017 Document Revised: 02/11/2019 Document Reviewed: 03/05/2017 [employer] Patient Education 2020 ulike. Esophagogastroduodenoscopy This is an endoscopic procedure (a [...] to receive it can visit one of [facility] vaccine clinics. There are many vaccine clinic locations within the [facility]. For locations and available times, please visit [email or web address] It is important to note that some COVID mobile vaccine clinics are held outdoors and may be canceled in rainy or stormy conditions. To learn more about pediatric vaccinations (ages 5-11), we invite you to visit the [facility] webpage. https://www.[facility].org/pages/8416-Ynogl-Axhrxhmrwxj-Ezguetmxvg-Ulzdm-Foc stions.htmlTo learn more about the COVID-19 vaccine, we invite you to visit the CDC website for a list of frequently asked questions.https://www.cdc.gov/coronavirus/2019-ncov/vaccines/faq.html [facility] Patient Portal Access Instructions: Stay connected with your healthcare team and access your personal medical information anytime with the [facility] Patient Portal. Please follow the directions below to create your [facility] account: 1.Access the email account you provided upon registration to the hospital/physician office.2.Look for an invitation email from [facility].3.Open the email and access the invitation link: AcceptInvitation to [facility].4.Fill in the required joaquin to create your account. To access your account, visit [employer]/[address] Labst. Click the blue button labeled Access Patient Portal and then log in with the username and password that you created in the steps above. You will be able to view your test results, lab results, a summary of your visits, upcoming appointments and more. There is also a convenient messaging option where you can send secure messages to your p rovider. In addition, you will have the ability to download any documents or summaries to your computer and/or send the information securely to a physician. Remember that your healthcare information is confidential, so carefully consider who you will allowto register on the [facility] Patient Portal for access to your information. You can also access the [facility] One[facility] Patient Portal on the [employer] lauren. Simply click on Patient Portal and then log into your account. If you would like to receive a full copy of your medical records, please contact the [facility] Medical Records Department by calling [phone], Monday through Monday between 8 a.m. and [...] Call your local pharmacy or go to [email or web address]/9Z4Fc7o to find one close to you.3.Make use of household items: Use cat litter or old coffee grounds to dispose medications if other options arenot available. Mix your drugs with these household products, seal them in an airtight container andthrow it into the garbage. Call [facility]: [phone] to be sure your drugs can be [...] been reviewed and explained to me and I,SHAHEEN LUKE understand my current condition and have read and understand these discharge instructions. I have received a written copy of the plan/instructions. If I have questions, I am aware that I should contactmy doctor. Patient/Client Service Associate Signature: Date/Time: Relationship to Patient: Witness Name/Signature: Date/Time: [facility]11-25-2024 Anesthesiology Consult note Patient: LUKE DOLAN SR Age: 69 years Sex: Male : 1955 Associated Diagnoses: None Author: AFSHIN ZHENG FIXING MACHINE OPERATOR-AUTOMOTIVE TIRE TESTING SUPERVISOR Assessment Postanesthesia assessment Vitals: Vital signs from [...] by AFSHIN ZHENG on 10/21/2024 09:38 AM [facility]11-25-2024 Note [place] ADMISSION HISTORY AND PHYSICIAL CHIEF COMPLAINT: HISTORY OF PRESENT ILLNESS: REVIEW OF SYSTEMS: ACTIVE PROBLEMS: (20) Back spasm (530581702) Cervical disc disease (2158063140) Chronic neck and back pain (106688469) COPD without exacerbation (96491936) Coronary artery disease (0932040687) DDD (degenerative disc disease), lumbar (81638867) Diabetes mellitus (032708186) Dysphagia (207873146) Esophageal reflux disease (000300508) Essential hypertension (27567705) Hx [place], P/S, hernia repair x7, smoker Hyperlipidemia (516035214) Left hip pain (22655257) Leukocytosis (280982513) Primary insomnia (2118778) Screening for prostate cancer (694630549) Smokes less than 1 pack a day with greater than 40 pack year history (929378531) Tobacco dependence due to cigarettes (4355929238) Tobacco use (7674001004) Ventral hernia (2657204512) MEDICATIONS: Active Inpt Meds: None Active PRN Meds: None One Time Meds: None Active IV Meds: Lactated Ringers Infusion 1,000 mL (LR 1,000 mL) Start: 10/21/24 7:42:00 EST, Rate: 50 mL/hr, 10/21/24 7:42:00 EST ALLERGIES: (1) Zetia FAMILY HISTORY: SOCIAL HISTORY: PHYSICAL EXAM: VITALS: EecbqiTbazJBIfikzGVWxY9CON2EhvwGl(kg) 10/21 07:5436.2--921633EP58/25 76.2 24 Hr Tmax: 36.2 at 10/21 [...] LOCO WILDE MD on 10/21/2024 09:27 AM [facility]11-25-2024 Anesthesiology Consult note Patient: LUKE DOLAN SR Age: 69 years Sex: Male : 1955 Associated Diagnoses: None Author: AFSHIN ZHENG APRN-AUTOMOTIVE TIRE TESTING SUPERVISOR Preoperative Information Time of last food or [...] Medical Cervical disc disease / SNOMED CT 5164499150 / Confirmed COPD without exacerbation / SNOMED CT 76919420 / Confirmed Chronic neck and back pain / SNOMED CT 928035833 / Confirmed Smokes less than 1 pack a day with greater than 40 pack year history / SNOMED CT 114204791 / Confirmed Coronary artery disease / SNOMED CT 3394989551 / Confirmed DDD (degenerative disc disease), lumbar / SNOMED CT 00137826 / Confirmed Diabetes mellitus / SNOMED CT 898974482 / Confirmed Essential hypertension / SNOMED CT 98208999 / Confirmed Esophageal reflux disease / SNOMED CT 194493738 / Confirmed Ventral hernia / SNOMED CT 6122406180 / Confirmed Left hip pain / SNOMED CT 90428905 / Confirmed Leukocytosis / SNOMED CT 666797362 / Confirmed Hyperlipidemia / SNOMED CT 718696807 / Confirmed Dysphagia / SNOMED CT 880032585 / Confirmed Screening for prostate cancer / SNOMED CT 132289978 / Confirmed Primary insomnia / SNOMED CT 1051980 / Confirmed Back spasm / SNOMED CT 089338352 / Confirmed Tobacco dependence due to cigarettes / SNOMED CT 0228884657 / Confirmed Resolved: Cough / SNOMED CT 45508142 Canceled: COPD exacerbation / SNOMED CT 802389792 Canceled: Cervical disc disease / SNOMED CT 1597702582 Canceled: Neoplasm of skin of face / SNOMED CT 49162810 Canceled: Pre-op exam / SNOMED CT 733731543 Canceled: Viral upper respiratory tract infection with cough / SNOMED CT 130342819, Active Problems (20) Back spasm Cervical disc disease Chronic neck and back pain COPD without exacerbation Coronary artery disease DDD (degenerative disc disease), lumbar Diabetes mellitus Dysphagia Esophageal reflux disease Essential hypertension Hx KS, P/S, hernia repair x7, smoker Hyperlipidemia Left hip pain Leukocytosis Primary insomnia Screening for prostate cancer Smokes less than 1 pack a day with greater than 40 pack year history Tobacco dependence due to cigarettes Tobacco use Ventral hernia Histories Past Medical History: Resolved Cough (84461344): Resolved. Family History: Cancer Father Comments: 07/08/2019 10:37 Vita Garibay LPN lung cancer Hypertension Mother Hyperlipidemia Mother Procedure history: Extracapsular cataract removal with insertion of intraocular lens prosthesis (1 stage procedure), manual or mechanical technique (eg, irrigation and aspiration or phacoemulsification); with endoscopic cyclophotocoagulation (27627) on 08/03/2023 at 68 Years. Comments: 08/09/2023 10:38 Vita Garibay LPN right eye-[facility] Cataract extraction and insertion of intraocular lens (0756419128) on 01/25/2017 at 61 Years. Comments: 07/05/2019 13:09 Tawny Brown LPN Left Inguinal hernia (4882177451) in 2012 at 58 Years. Comments: 07/05/2019 13:09 Tawny Brown LPN Repair Cholecystectomy (76392048) in 2010 at 56 Years. Stent placement (439043262) in 2009 at 55 Years. Comments: 07/05/2019 13:10 Tawny Brown LPN multiple stents Tonsillectomy (606231341). Social History: Social & Psychosocial Habits Alcohol [...] Signs (last 24 hrs) Last Charted Temp Ayfzbtcm79.2 DegC (OCT 21 07:54) Heart Rate Czzldl32 bpm (OCT 21 07:54) SBPH 146 mmHg (OCT 21 07:54) DBP74 mmHg (OCT 21 07:54) Measurements from flowsheet : Measurements 10/21/2024 7:54 EST Height 167.5 cm Height in inches 65.9 inch(es) Admission Weight 76.2 kg Weight Lbs 167.6 lb [place] Body Weight 63.67 kg 10/21/2024 7:49 EST Height 167.5 cm [place] Body Weight 63.67 kg Pain assessment: Pain [...] Present Present Anesthesia Extension Set Applied Yes Mail Inserter On Yes 10/21/2024 8:03 EST Continuous IV [...] Palpation Non-Tender Skin Temperature Warm Skin Description [place], Normal for ethnicity Skin Integrity Intact Skin [...] Weight 76.2 kg Weight Lbs 167.6 lb [place] Body Weight 63.67 kg Temperature Temporal Artery 36.2 DegC Apical Heart Rate 74 bpm Respiratory Rate 13 br/min LOW Systolic Blood Pressure Non-Invasive 146 mmHg HI Diastolic Blood Pressure Non-Invasive 74 mmHg Primary Pain Intensity 0 Pain Scale Type 0-10 Pain scale Heart Rhythm Regular Oxygen Therapy Room air Oxygen Saturation 95 % 10/21/2024 7:49 EST Designated Person #1 We May Share [facility] Designated Person #1 We May Share [facility] Designated Person #1 Relationship Son Privacy Restrictions Requested None Height 167.5 cm [place] Body Weight 63.67 kg Status N/A Sensory [...] evident Teaching Method Explanation Preferred Spoken Language Ethiopian Preferred Written Language Ethiopian Patient's Current Physicians [facility] Discharge To, Anticipated Home independently Prev Test [...] Intake 10/20/2024 8:00 . Assessment and Plan [place] Society of Anesthesiologists (ASA) physical status classification: Class III. Anesthetic Preoperative Plan Premedication: intravenous. Anesthetic technique: MAC. Induction: intravenously. Maintenance airway: Mask. Risks discussed: nausea, vomiting, headache, sore throat, dental injury, hypotension, allergic reaction, serious complications. Informed consent: signed by patient. Digitally Signed by AFSHIN ZHENG on 10/21/2024 08:18 AM Digitally Signed by AFSHIN ZHENG on 10/21/2024 09:41 AM [facility]10-02-2023 Procedure [facility]10-02-2023 History and physical note Author Chary Fontaine [facility] August 28, 2023 12:01pm Note Date/Time August 28, 2023 11 :56am [facility] Medical Records Department [address] [place] [id number] History & Physical Exam 08/28/23 1156 MR#: [id number] Acct: [id number] Name: LUKE DOLAN Rep #:[id number] : 1955 68 From: Chary Fontaine MD PCP: Dr. Camden Briones, DO Status:[facility] Location: [place] [address] History and Physical Date of Admission: 08/28/23 Date of Service: 08/07/23 MR#: [id number] Acct: [id number] Name: LUKE DOLAN . Rep #: [id number] : 1955 Provider: Dr. Chary Fontaine MD Age/Sex: 68/M Location: [facility] Status: Signed Intake [...] DAILY #90 tabs 04/28/23 [Rx Confirmed 08/07/23] [facility] Medical History Acute KS, anterior wall, subsequent episode of care Atherosclerotic heart disease of [place] coronary artery without angina pectoris Chest pain [...] healthy appearing, comfortable and no acute distress [facility] Head: normocephalic and atraumatic Neck Neck: supple [...] Agreed to proceed. Chary Fontaine M.D. Pager: [phone] [facility] [address] [place] [address], [address] [place] [address] Office: [phone] Coding Level of Care Code Off vis,est,level 3 Diagnoses Ventral hernia K43.9 08/08/23 0728 <Electronically signed by Chary Fontaine MD> Date Chary Fontaine MD 08/28/23 1156 <Electronically signed by Chary Fontaine MD> Cosigner Signature (if applicable): CC: Dr. Camden Briones DO; Dr. Chary Fontaine MD~ Signed ADDENDUM by Dr. Chary Fontaine MD on 08/28/23 at 1201 Addendum I have examined the patient and the H&P has been reviewed. There are no clinicalchanges since date of exam. 08/28/23 1201<Electronically signed by Chary Fontaine MD> Cosigner Signature (if applicable): cc: Dr. Camden Briones, DO; Dr. Chary Fontaine MD ~* Signed [facility] Work Phone: Consult note Author Dom Gonzales [facility] Note Date/Time May 17, 2025 2:55 pm [facility] Medical Records Department [address] [place] [address] Consultation - Orthopedics 05/17/25 1422 MR#: [id number] Acct: [id number] Name: LUKE DOLAN Rep #:[id number] : 1955 69 From: Dom Gonzales MD PCP: [facility]ES[facility] PUBLIC RECORDS OFFICERAleyda Status:REG S DC Location: [facility]- HPI Consult Data Date of Consult: 05/17/25 HPI Narrative HPI Narrative: LUKE DOLAN, is a 69 M who presents for 3 days hx of left knee pain and swelling. The patient had progressive worsening left knee pain atraumatic no history of fevers or chills but the knee pain got worse to where he could only bend at about 0 to 10 degrees. No history of gout no history of pseudogout. Not on any immune suppressing medications although the patient does have diabetes. No history he states of IV drugs. He does smoke half a pack of cigarettes a day. Patient been n.p.o. since about 1:00 he had a few sips of coffee. Did not eat lunch. [facility] Medical History Diabetes High cholesterol Back pain Gastric reflux Smoker Cardiology follow-up encounter Presence of stent in coronary artery (~08/2008) Essential hypertension Ventral incisional hernia without obstruction or gangrene Hyperlipidemia Acute KS, anterior wall, subsequent episode of care Old myocardial infarction Syncope and collapse Dyspnea Chest pain Long-term use of high-risk medication Atherosclerotic heart disease of [place] coronary artery without angina pectoris Home Medications ?Medication ?Instructions ?Recorded ?Last Taken ?Type fenofibrate 160 mg tablet 160 mg PO DAILY #30 tabs 05/16/25 Rx rosuvastatin 40 mg tablet (Crestor) 40 mg PO DAILY 09/1405/17/25 History lisinopril 40 mg tablet 40 mg PO DAILY #90 tabs 11/2705/17/25 Rx aspirin 81 mg tablet,delayed 81 mg PO DAILY 08/17/23 0 05/16/25 History release (Adult Aspirin Regimen) clopidogrel 75 mg tablet 75 mg PO DAILY #90 tabs 04/2805/17/25 Rx ezetimibe 10 mg tablet 10 mg PO DAILY 05/17/2504/28 History hydrocodone-acetaminophen 5-325mg 1 tab PO Q6H PRN PRN Pain 3 days 05/17/25 Unknown Rx 5mg-325mg #10 TABLETS metformin 500 mg tablet,extended 500 mg PO BID 5 05/17/25 History release 24 hr oxycodone-acetaminophen 5 mg-325 1 tab PO Q6H 05/17/25 05/16/25 History mg tablet pantoprazole 40 mg tablet,delayed 40 mg PO DAILY 05/1705/17/25 History release Allergy/AdvReac Type Severity Reaction Status Date / Time atorvastatin calcium (From AdvReac Pain in Verified 05/17/25 09:30 Lipitor) joints Family History Father CAD (coronary artery disease) Diabetes Thyroid disorder Hypertension Cancer lung Mother Hypertension Aneurysm Brother CAD (coronary artery disease) Sister Congestive heart failure Surgical History History of ventral hernia repair (~08/2023) History of coronary artery stent placement History of cardiac catheterization History of cataract surgery Presence of coronary angioplasty implant and graft (~08/2008) History of umbilical hernia repair History of cholecystectomy (~02/2012) History of hernia repair History of tonsillectomy Social History Smoking Status: Current every day smoker tobacco type: cigarettes alcohol intake: current alcohol intake frequency: holidays/special occasions only substance use type: does not use caffeine: Yes Vital Signs Vital Signs Vital Signs: 05/17/25 09:30 05/17/25 13:30 05/17/25 13:47 Temperature 98.1 F 97.8 F Temperature Source Temporal Oral Pulse Rate 93 78 86 Respiratory Rate 14 18 16 Blood Pressure 184/94 H 178/84 H 188/85 H Blood Pressure Mean 124 115 119 Blood Pressure Source Monitor Blood Pressure Position Semi-Fowlers Blood Pressure Location Left Arm Pulse Ox 99 99 100 Oxygen Delivery Method Room Air Room Air Room Air 05/17/25 14:19 Temperature 97.8 F Temperature Source Pulse Rate 81 Respiratory Rate 18 Blood Pressure 179/81 H Blood Pressure Mean 113 Blood Pressure Source Blood Pressure Position Blood Pressure Location Pulse Ox 99 Oxygen Delivery Method Weight Weight: 172 lb 13.478 oz Body Mass Index (BMI) 27.8 Physical Exam Const alert, oriented x3 and no apparent distress Constitutional Narrative: He appears nontoxic. He is in good spirits. Here with 3 family members. General Appearance: cooperative Extremity Extremity Narrative: Left knee on inspection there is mild swelling. There is a small effusion. There is mild warmth. No obvious overlying redness. The range of motion right now his actively and passively is from 0 to 100 degrees with some mild pain at the end ranges of motion. Full hip range of motion no pain with range of motionof the ankle. Neurovascular intact normal sensation throughout the foot foot iswarm and well-perfused able to dorsiflex and plantarflex the foot. Ligamentous exam is stable of the knee. There is mild pain to palpation diffusely about theknee. No active drainage. There is a sign from previous aspiration today as well as a medially based transversely well-healed scar from a lawnmower accident. Medical Records Data Attestation: I reviewed the patient's medical records Lab / Micro Data Attestation: I reviewed the patient's lab results. 05/17/25 09:50 05/17/25 09:50 Labs: Laboratory Results - last 24 hr 05/17/25 09:50: WBC 17.5 H, RBC 5.43, Hgb 15.5, Hct 46.6, MCV 85.8, MCH 28.5, MCHC 33.3, RDW Std Deviation 44.8 H, RDW Coeff of Kranthi 14.3, Plt Count 297, MPV 9.1, Immature Gran % (Auto) 0.200, Neut % (Auto) 51.0, Lymph % (Auto) 37.9, [place]% (Auto) 9.4, Eos % (Auto) 1.0, Baso % (Auto) 0.5, Absolute Neuts (auto) 8.9 H, Absolute Lymphs (auto) 6.61 H, Nucleated RBC % 0, ESR 45 H, Sodium 135, Potassium 4.0, Chloride 101, Carbon Dioxide 20.2 L, Anion Gap 14, BUN 12, Creatinine 0.87, Estim Creat Clear Calc 80.05, Est GFR (MDRD) Non-Af 94, BUN/Creatinine Ratio 13.7, Glucose 112 H, Calcium 9.6, Total Bilirubin 0.47, AST19, ALT 9, Alkaline Phosphatase 66, C-React Prot Ext Range 19.80 H, Total Protein 7.1, Albumin 4.0, Globulin 3.1, Albumin/Globulin Ratio 1.3 05/17/25 11:32: Fluid Crystals NO CRYSTALS SEEN, Fluid Crystal Source SYNOVIAL, Fl Crystal Path Review Will follow, Synovial Source LT KNEE, Synovial Color Yellow, Synovial Appearance Cloudy, Synovial Viscosity Mod. Viscous, Synovial WBC 15.3600 H, Synovial RBC 0.008 H, Synovial Tot Cell Ct 15.3980 H, Synov Polynuclear WBCs 11.969, Synov Mononuclear WBCs 1.353, Synovial Neutrophils 73 H, Synovial Lymphocytes 1, Synovial Monocytes 26, Synovial Polynuclear % 89.8, Synovial Mononuclear % 10.2, Synovial Path Comment May follow Micro: Microbiology 05/17/25 11:32 Fluid - Synovial (joint) Gram Stain - Final Imaging Radiology Impression Knee X-Ray 05/17/25 11:10 IMPRESSION: No acute fracture or dislocations. Mild to moderate degenerative changes of theleft knee with chondrocalcinosis. Moderate soft tissue edema. Large joint effusion. No radiographic foreign body. Reading Location: [id number] Lumbar Spine X-Ray 05/17/25 11:10 IMPRESSION: No acute process identified. Degenerative disc disease Reading Location[facility] OF [place] I reviewed the knee x-rays I agree there is signs of chondrocalcinosis with a joint effusion. Assessment & Plan Assessment/Plan (1) Chondrocalcinosis of left knee: PLAN: 69-year-old man with acute onset of atraumatic 3 days history of left kneepain and swelling. Very low-grade fever increased white blood cell count increased ESR and CRP with synovial fluid aspiration showing 1+ Gram stain as well as 15,000 white blood cell count with 70% neutrophil predominance and negative crystal analysis, with an effusion, slightly restricted ROM, mild warmth and no redness or drainage. The concern here is for an acute septic joint. Lower on the differential would be a false negative for pseudogout although these diagnoses can be concomitant. Also on ddx gout, reactive effusionor other causes. The risk here with treating this conservatively would be missing a septic arthritis and subsequent damage to the cartilage and the rest of the knee. Surgical intervention would be relatively low risk and would help to achieve source control and protect the cartilage from further damage by possible septic arthritis. Discussed the pros and cons risk benefits of nonoperative versus surgical intervention which would be in the form of left knee arthroscopy, irrigation and debridement. I recommend an acute irrigation debridement. The patient wished to go ahead with surgery made n.p.o. the patient has been started on IV antibiotics as we already have a sample. I have called and mobilized the call team as well as anesthesia shortly after I was called. I talked to Dr. Oneil as well as the supervisor housecleaner at / around 1:45 PM and stressed the emergency nature of this case E1/JAMES. I also explained that to the patient and his family and nursing staff also aware. As soon as the call team arrives we will transfer the patient directly from the emergency department to the OR holding area. The left knee marked this on the consent form for surgery possible need for blood products as well. Pros and cons risks and benefits were discussed with the patient including but not limited to infection, pain, stiffness, bleeding, damage to surrounding structures, neurovascular injury, recurrence or retear, failure or wear of hardware or fixation, instability, fracture, deep vein thrombosis and pulmonary embolism, anesthetic risks, , patient dissatisfaction, need for further surgery and other risks. Patient understood and wished to proceed with surgery,and signed the informed consent documentation. (2) Septic arthritis of knee, left: 05/17/25 1539 <Electronically signed by Dom Gonzales MD> Cosigner Signature (if applicable): CC: TYRONE PUBLIC RECORDS OFFICER-C OLEG~ Signed ADDENDUM by Dr. Dom Gonzales MD on 05/17/25 at 1455 Addendum I ordered IV vancomycin in addition to the ceftriaxone for MRSA coverage given age and comorbidities. 05/17/25 1455<Electronically signed by Dom Gonzales MD> Cosigner Signature (if applicable): cc: TYRONE DEJESUS ~* Signed [facility] Work Phone: Consult note Author Phani Oneil [facility] Note Date/Time May 17, 2025 3:04 pm [facility] Medical Records Department [address] [place] [address] Pre-Anesthesia Evaluation 05/17/25 1447 MR#: [id number] Acct: [id number] Name: LUKE DOLAN Rep #:[id number] : [id number] From: Phani Oneil MD PCP: TYRONE DEJESUS Status:REG S DC Y Race: C Location: [facility] ADDENDUM [address]. Phani Oneil MD on 05/17/25 at 1504 Addendum Patient had black coffee at about 1:00pm 05/17/25 1504 <Electronically signed by Phani merida MD> Date _ Phani Oneil MD cc: ~* Signed ASA Classification* ASA Classification ASA Classification: 3 and E Assessment & Plan Anesthesia* Anesthesia Assessment Anesthesia Assessment: Discussed sedation and/or anesthesia options, risks, benefits, and alternatives with patient/parents/legal guardian/POA. Questions invited. The patient/parents/legal guardian/POA seems to understand and agrees to proceedwith anesthesia plan. Reviewed the physical assessment, medical history, allergy history and patient home medications list prior to surgery/procedure/anesthetic and documented any changes. Performed airway and anesthesia risk assessments. Anesthesia Type Anesthesia Type: General History Source History Obtained from:: Patient and Chart Anesthesia Focused Assessment* Temperature: 97.8 F Pulse Rate: 81 Blood Pressure: 179/81 Respiratory Rate: 18 Pulse Ox: 99 Oxygen Delivery Method: Room Air Airway Assessment Mouth opens: >3 cm Mallampati Score: III Teeth Condition: Dentures (Patient is full top dentures.) and Missing (Patient is edentulous on the bottom.) Neck Range of motion (ROM): Limited ROM (Slight decrease in extension) Labs Anesthesia Preop lab: CBC WBC 17.5 K/mm3 (4.4-11.0) H 05/17/25 09:50 5 RBC 5.43 M/mm3 (4.6-6.2) 05/17/25 09:50 05/17/25 Hgb 15.5 g/dL (13.0-16.5) 05/17/25 09:50 05/17/25 Hct 46.6 % (40-54) 05/17/25 09:50 05/17/25 Plt Count 297 K/mm3 (150-450) 05/17/25 09:50 05/17/25 CHEMISTRY Potassium 4.0 mmol/L (3.3-5.1) 05/17/25 09:50 05/17/25 Sodium 135 mmol/L (133-145) 05/17/25 09:50 05/17/25 BUN 12 mg/dL (4-19) 05/17/25 09:50 05/17/25 Creatinine 0.87 mg/dL (0.70-1.20) 05/17/25 09:50 05/17/25 Glucose 112 mg/dL (70-99) H 05/17/25 09:50 05/17/25 POC Glucose 119 mg/dL (74-106) H 08/28/23 14:12 08/28/23 COAG Pre-Assessment Diagnosis/Proposed Procedure Planned Operative Procedure(s): Irrigation and debridement of left knee. Anesthesia History Anesthesia History - title insurance sales representative: Anesthesia History - title insurance sales representative Hx Hospitalization No 08/17/23 08:15 Any Problems With Anesthesia No 05/17/25 13:47 Cholinesterase deficiency No 05/17/25 13:47 You/Your Family Experience No 05/17/25 13:47 fever (hyperthermia) with Relationship Recent Exposure to Contagious No 05/17/25 13:47 Disease Does patient have nerve No 05/17/25 13:47 stimulator Patient instructed to have No 05/17/25 13:47 device shut off --Does patient have Pacemaker or ICD? When Was Last Pacemaker Check QUESTION #4 FULL TEXT: You/Your Family Experience fever (hyperthermia) with Anesthesia Last Oral Intake Last Oral intake: Last Oral Intake NPO since Meds taken in AM with sips of water? Meds patient instructed to take am of surgery Any additional information?: Yes NPO since: 13:00 Meds taken in AM with sips of water?: Yes PONV PONV - title insurance sales representative: PONV - title insurance sales representative Female HX of Motion Sickness HX of N/V After Surgery Non-Smoker Duration of Surgery greater than 60 minutes Number of Risk Factors PONV Score Height & Weight Height & Weight: Anesthesia: Height & Weight Height 5 ft 6 in 05/17/25 13:47 Weight: 78.4 kg 05/17/25 13:47 Body Mass Index (BMI) 27.8 05/17/25 13:47 Respiratory Assessment Respiratory Assessment - title insurance sales representative: Respiratory Tract Infection Hx - title insurance sales representative Hx Respiratory Tract Infection No 05/17/25 13:47 STOP Sleep Apnea STOP Sleep Apnea - title insurance sales representative: STOP Sleep Apnea - title insurance sales representative Hx Hypertension Yes 05/17/25 13:47 Hx Sleep Apnea No 05/17/25 13:47 CPAP No 08/28/23 14:11 BIPAP No 05/12/16 14:14 Do you snore loudly (louder No 05/17/25 13:47 than talking or can be heard Do you often feel tired/ Yes 05/17/25 13:47 fatigued/ sleepy during daytime? Has anyone observed you stop No 05/17/25 13:47 breathing during sleep? STOP Results Positive 05/17/25 13:47 QUESTION #5 FULL TEXT : Do you snore loudly (louder than talking or can be heard through closed doors)? Tobacco Use History Tobacco Use History - title insurance sales representative: Tobacco Use History - title insurance sales representative Tobacco Use Smoking Status Current every day smoker 05/17/25 09:45 Hx Tobacco Use Yes 08/17/23 08:15 Years Smoking Packs Smoked per Day Smoking Cessation Date was within the last 15 years Hx Smoking Cessation Date Hx Smoking Cessation Counseling Hematologic Medial History Hematologic Hx - title insurance sales representative: Hematologic Medical Hx - clinical documentation manager Hx of Blood Transfusion Hx of Transfusion in last 3 Months Date of Last Transfusion (if within last 3 months) Ever experience any problems with transfusion(s)? Specify any problems Hx of Preganancy in last 3 Months Nurse Filling Out Transfusion & Questions: Date: Time: Patient unable to answer at this time (ie. confused, unrespo /Reproduction History /Reproductive History - title insurance sales representative: /Reproductive Hx- title insurance sales representative Hx Now No 05/17/25 13:47 Gestational Age (in weeks): EDC: Hx Hx Para Hx Section SAB No 05/17/25 13:47 PFSH Medical History Diabetes High cholesterol Back pain Gastric reflux Smoker Cardiology follow-up encounter Presence of stent in coronary artery (~08/2008) Essential hypertension Ventral incisional hernia without obstruction or gangrene Hyperlipidemia Acute KS, anterior wall, subsequent episode of care Old myocardial infarction Syncope and collapse Dyspnea Chest pain Long-term use of high-risk medication Atherosclerotic heart disease of [place] coronary artery without angina pectoris Home Medications ?Medication ?Instructions ?Recorded ?Last Taken ?Type fenofibrate 160 mg tablet 160 mg PO DAILY #30 tabs 05/16/25 Rx rosuvastatin 40 mg tablet (Crestor) 40 mg PO DAILY 09/1405/17/25 History lisinopril 40 mg tablet 40 mg PO DAILY #90 tabs 11/2705/17/25 Rx aspirin 81 mg tablet,delayed 81 mg PO DAILY 08/17/23 0 05/16/25 History release (Adult Aspirin Regimen) clopidogrel 75 mg tablet 75 mg PO DAILY #90 tabs 04/2805/17/25 Rx ezetimibe 10 mg tablet 10 mg PO DAILY 05/17/2504/28 History hydrocodone-acetaminophen 5-325mg 1 tab PO Q6H PRN PRN Pain 3 days 05/17/25 Unknown Rx 5mg-325mg #10 TABLETS metformin 500 mg tablet,extended 500 mg PO BID 5 05/17/25 History release 24 hr oxycodone-acetaminophen 5 mg-325 1 tab PO Q6H 05/17/25 05/16/25 History mg tablet pantoprazole 40 mg tablet,delayed 40 mg PO DAILY 05/1705/17/25 History release Allergy/AdvReac Type Severity Reaction Status Date / Time atorvastatin calcium (From AdvReac Pain in Verified 05/17/25 09:30 Lipitor) joints Family History Father CAD (coronary artery disease) Diabetes Thyroid disorder Hypertension Cancer lung Mother Hypertension Aneurysm Brother CAD (coronary artery disease) Sister Congestive heart failure Surgical History History of ventral hernia repair (~08/2023) History of coronary artery stent placement History of cardiac catheterization History of cataract surgery Presence of coronary angioplasty implant and graft (~08/2008) History of umbilical hernia repair History of cholecystectomy (~02/2012) History of hernia repair History of tonsillectomy Social History Smoking Status: Current every day smoker tobacco type: cigarettes alcohol intake: current alcohol intake frequency: holidays/special occasions only substance use type: does not use caffeine: Yes Review of Systems (Anesthesia) ROS Narrative System reviewed and no additional complaints, except as documented. 05/17/25 1503 <Electronically signed by Phani merida MD> Date _ Phani Oneil MD Cosigner Signature: Date CC: ~ Signed [facility] Work Phone: Discharge summary Author Chary Fontaine [facility] August 28, 2023 2:07pm Note Date/Time August 28, 2023 2: 00pm [facility] Medical Records Department [address] [place] [address] Instructions for Home/Discharge Instructions 08/28/23 1359 MR#: [id number] Acct: [id number] Name: LUKE DOLAN Rep #:[id number] : 1955 68 From: Chary Fontaine MD PCP: Dr. Camden Briones, DO Status:REG [facility] Discharge Instructions Diet Discharge Diet: No restrictions [...] 2 weeks; after 5 PM and on call [phone] with any concerns. Test Results: Test results from this visit will be discussed in further detail at your follow- up appointment, if applicable. Discharge Plan Admission Attending Provider: Chary Fontaine Primary Care Provider: Camden Briones Discharge Orders/Prescriptions Prescriptions: New oxycodone-acetaminophen 5-325 mg [...] Aaron Jacques Referrals / Follow Up: Camden Briones DO [Primary Care Provider] - Disposition Disposition (needs filled in before D/C Order can be placed): Home, Self Care 08/28/23 1407<Electronically signed by Chary Fontaine MD>Chary Fontaine MD CC: Dr. Camden Briones DO ~ Signed [facility] Work Phone: Evaluation + Plan note Future Appointments Appointment Date:02/02/2022 11:00:00 AM Scheduled Provider:CAMDEN BRIONES DO Location:[facility] Appointment Type:PC OV Controlled Medication Future Scheduled Tests Radiology* XR Swallowing Function 02/03/21 [facility] Evaluation + Plan note Future Appointments Appointment Date:02/01/2023 10:30:00 AM Scheduled Provider:CAMDEN BRIONES DO Location:[facility] Appointment Type:PC OV Controlled Medication [facility] Evaluation + Plan note Future Appointments Appointment Date:05/01/2024 11:00:00 AM Scheduled Provider:CAMDEN BRIONES DO Location:[facility] Appointment Type:PC OV Controlled Medication Future Scheduled Tests Laboratory* Prostate Specific Antigen 01/31/24 * Complete Blood Count 01/31/24 * Lipid Profile 01/31/24 * Albumin/Creatinine Ratio, Random Urine 01/31/24 * Complete Metabolic Panel 01/31/24 [facility] Evaluation + Plan note Future Appointments Appointment Date:11/06/2024 11:00:00 AM Scheduled Provider:CAMDEN BRIONES DO Location:[facility] Appointment Type:PC OV Controlled Medication Future Scheduled Tests Laboratory* Complete Blood Count 07/30/24 * Lipid Profile 07/30/24 * Albumin/Creatinine Ratio, Random Urine 05/01/24 [facility] Evaluation note* Diagnosis Onset Date Resolution Status Essential hypertension chron ic Hyperlipidemia chronic Nicotine dependence chronic Presence of stent in coronary artery 2008 chronic Ventral hernia acute [facility] Work Phone: Evaluation note* Diagnosis Onset Date Resolution Status Ventral hernia acute Ventral hernia acute [facility] Work Phone: Evaluation note* Diagnosis Dysphagia, unspecified type- Primary Dysphagia, unspecified type documented in this encounter [facility] note* Diagnosis Dysphagia, unspecified type- Primary documented in this encounter [facility] noteNo assessment information availableWTuscar[facility] Work Phone: Evaluation note* Diagnosis Onset Date Resolution Status Admit Date Chondrocalcinosis of left knee acute May 17, 2025 1:38pm Septic arthritis of knee, left acute May 17, 2025 1:38pm [facility] Work Phone: Hospital course Narrative No data available for this section [facility] Hospital Discharge instructions No data available for this section [facility] Progress note No data available for this section [facility] Reason for referral (narrative)No reason for referral information availableWTuscarawas [facility] Work Phone: Summary Purpose Family History Relationship Condition Age at Onset Recorded Date/T denys father Coronary artery disease Unknown Diabetes mellitus Unknown Disorder of thyroid Unknown Hypertension Unknown Malignant neoplasm Unknown mother Hypertension Unknown Aneurysm Unknown brother Coronary artery disease Unknown sister Congestive heart failure Unknown Advance Directives Advance Directive Response Recorded Date/ Time Advance Directives No May 12 16 2:14pm Living Will No May 12, 2016 2:14pm Power of Blueprint Developer No May 12 6 2:14pm Advance Directive Response Recorded Date/ Time Advance Directives No May 12 16 2:14pm Living Will No August 17, 2023 8:15am Power of Blueprint Developer No July 8:15am Advance Directive Response Recorded Date/ Time Advance Directives No May 12 2:14pm Advance Directive Response Recorded Date/ Time Do you have a Healthcare Power of Blueprint Developer? No May 17, 2025 9:45am Advance Directives No May 12 2:14pm Chief Complaint and Reason for Visit [...] :48am LUNG March 11, 2025 8:5 1am Chief Complaint Admit Date LUNG March 11, 2025 8:5 1am JOINT INFECTION May 17, 2025 1:38 pm JOINT INFECTION May 17, 2025 2:22 pm Reason for Visit Admit Date Chondrocalcinosis of left knee April 1:38pm Septic arthritis of knee, left April 1:38pm Additional Source Comments (unrecognized sect ion and content) No Status Records FoundNo Status Records FoundNo Status Records FoundNo Status Records FoundNo Status Records Found INFORMATION SOURCE (unrecogn ized section and content) DATE CREATED AUTHOR 09/04/2019 [facility] DATE CREATED AUTHOR AUTHOR'S ORGANIZ ATION 05/15/2024 [facility] DATE CREATED AUTHOR AUTHOR'S ORGANIZ ATION 03/08/2025 [facility] DATE CREATED AUTHOR AUTHOR'S ORGANIZ ATION 03/17/2025 [facility] DATE CREATED AUTHOR AUTHOR'S ORGANIZ ATION 04/29/2025 [facility] Care Team (unrecognized sect ion and content) Care Team Personnel Name: CAMDEN BRIONES DO Position: P4 Physician - Primary Care Member Role: Primary Care Physician Address: Address: [address] Care Team Related Persons Name: LON DOLAN Care Teams (unrecognized sec tion and content) Team Status: Active Member Role Status Dates TYRONE DEJESUS NP-C Primary Care Provider Active Team Status: Inactive Member Role Status Dates Dr. Camden Briones DO Primary Care Provider Active Start: March 11, 2025 End: March 11, 2025 Dr. Camden Briones DO Attending Provider Active Start: March 11, 2025 End: March 11, 2025 Dr. Camden Briones DO Referring Provider Active Start: March 11, 2025 End: March 11, 2025 Team Status: Active Member Role Status Dates Dr. Mynor De Leon MD Emergency Provider Active Sta rt: May 17, 2025 TYRONE DEJESUS NP-C Primary Care Provider Active Start: May 17, 2025 Dr. Erickson Robbins DO Attending Provider Active Start: May 17, 2025 Dom Gonzales MD Other Provider Active Start: May 17, 2025 Team Status: Active Member Role Status Dates Dr. Mynor De Leon MD Emergency Provider Active Sta rt: May 17, 2025 SOL ROSS Primary Care Provider Active Start: May 17, 2025 Dom Gonzales MD Attending Provider Active St art: May 17, 2025 Dom Gonzales MD Other Provider Active Start: May 17, 2025 Team Status: Active Member Role Status Dates Dr. Camden Briones DO Family Provider Active Dr. Camden Briones DO Primary Care Provider Active Team Status: Inactive Member Role Status Dates Dr. Camden Briones DO Primary Care Provider, Referri ng Provider Active Mariaelena Tuttle NP, PUBLIC RECORDS OFFICER-C Attending Provider Active Team Status: Inactive Member Role Status Dates Dr. Camden Briones DO Primary Care Provider, Referri ng Provider Active Dr. Chary Fontaine MD Attending Provider Active Team Status: Inactive Member Role Status Dates Dr. Camden Briones DO Primary Care Provider Active Dr. Chary Fontaine MD Attending Provider, Referring Provider Active Team Status: Active Member Role Status Dates Dr. Camden Briones DO Primary Care Provider Active Dr. Aaron Roy MD Attending Provider Active Team Status: Inactive Member Role Status Dates Dr. Camden Briones DO Primary Care Provider Active Dr. Jayesh Stein MD Attending Provider, Referring Pr ovider Active Team Status: Active Member Role Status Dates Dr. Camden Briones DO Primary Care Provider Active Dr. Aaron Ryo MD Attending Provider Active Dr. Jayesh Stein MD Referring Provider Active Team Status: Active Member Role Status Dates Dr. Camden Briones DO Primary Care Provider Active Dr. Chary Fontaine MD Attending Provi leo, Referring Provider, Other Provider Active Patient Coordinator Relationship Specialty Start Date End Date Camden Briones DO [address] [place] [address] PCP - General Family Medicine 11/12/24 Patient Coordinator Relationship Specialty Start Date End Date Camden Briones DO [address] [place] [address] PCP - General Family Medicine 11/12/24 Patient Coordinator Relationship Specialty Start Date End Date Camden Briones DO [address] [place] [address] PCP - General Family Medicine 11/12/24 Team Status: Active Member Role Status Dates Dr. Camden Briones DO Primary Care Provider Active Team Status: Inactive Member Role Status Dates Dr. Camden Briones DO Primary Care Provider Active Start: December 11, 2024 End: December 11, 2024 Dr. Loco Wilde MD Attending Provider Active Start: December 11, 2024 End: December 11, 2024 Dr. Loco Wilde MD Referring Provider Active Start: December 11, 2024 End: December 11, 2024 Team Status: Inactive Member Role Status Dates Dr. Camden Briones DO Primary Care Provider Active Start: March 11, 2025 End: March 11, 2025 Dr. Camden Briones DO Attending Provider Active Start: March 11, 2025 End: March 11, 2025 Dr. Camden Briones DO Referring Provider Active Start: March 11, 2025 End: March 11, 2025 Patient Coordinator Relationship Specialty Start Date End Date Camden Briones DO [address] [place] [address] PCP - General Family Medicine 11/12/24 Patient Coordinator Relationship Specialty Start Date End Date AnselmoCamden baltazarDO [address] [facility] [address] [place] [address] PCP - General Family Medicine 11/12/24 Team Status: Active Member Role Status Dates SOL ROSS Primary Care Provider Active Team Status: Active Member Role Status Dates Dr. Mynor De Leon MD Emergency Provider Active Sta rt: May 17, 2025 SOL ROSS Primary Care Provider Active Start: May 17, 2025 Dr. Erickson Robbins DO Attending Provider Active Start: May 17, 2025 Dom Gonzales MD Other Provider Active Start: May 17, 2025 Team Status: Active Member Role Status Dates Dr. Mynor De Leon MD Emergency Provider Active Sta rt: May 17, 2025 SOL ROSS Primary Care Provider Active Start: May 17, 2025 Dom Gonzales MD Attending Provider Active St art: May 17, 2025 Dom Gonzales MD Other Provider Active Start: May 17, 2025 Goals (unrecognized section and content) Goals may be documented in a n alternate section Source Comments (unrecognize d section and content) In the event this informatio n is protected by the Federal Confidentiality of Alcohol and Drug Abuse Patient Records regulations: The Federal rules restrict any use of the information to criminally investigate or prosecute any alcohol or drug abuse patient.[facility] the event this information is protected by the Federal Confidentiality of Alcohol and Drug Abuse Patient Records regulations: The Federal rules restrict any use of the information to criminally investigate or prosecute any alcohol or drug abuse patient.[facility] Hospital[facility] the event this information is protected by the Federal Confidentiality of Alcohol and Drug Abuse Patient Records regulations: The Federal rules restrict any use of the information to criminally investigate or prosecute any alcohol or drug abuse patient.[facility] Hospital[facility] the event this information is protected by the Federal Confidentiality of Alcohol and Drug Abuse Patient Records regulations: The Federal rules restrict any use of the information to criminally investigate or prosecute any alcohol or drug abuse patient.[facility] Hospital[facility] the event this information is protected by the Federal Confidentiality of Alcohol and Drug Abuse Patient Records regulations: The Federal rules restrict any use of the information to criminally investigate or prosecute any alcohol or drug abuse patient.[facility] HospitalIn the event this information is protected by the Federal Confidentiality of Alcohol and Drug Abuse Patient Records regulations: The Federal rules restrict any use of the information to criminally investigate or prosecute any alcohol or drug abuse patient.[facility] HospitalIn the event this information is protected by the Federal Confidentiality of Alcohol and Drug Abuse Patient Records regulations: The Federal rules restrict any use of the information to criminally investigate or prosecute any alcohol or drug abuse patient.[facility] HospitalIn the event this information is protected by the Federal Confidentiality of Alcohol and Drug Abuse Patient Records regulations: The Federal rules restrict any use of the information to criminally investigate or prosecute any alcohol or drug abuse patient.[facility] Reason for Visit (unrecogniz ed section [...] BE BASED ON THE PRIMARY CLINICAL RECORDS. [facility] [employer] [facility]. provides no warranty or guarantee of the accuracy or completeness of information in this document.
[2025-05-17 16:44] LABS: Bedside Glucose 138 mg/dL (74-106)
[2025-05-17] MEDS: HYDROmorphone 0.5 MG/0.5 ML SYRINGE IV (17:02)
--- NOTE | 2025-05-17 17:02 | PCM.RX.CS ---
Consult Antibiotic Management Pharmacy has been consulted to manage selected antibiotic: Vancomycin Type of Intervention Type of Consult: New start Suspected Infection Suspected Infection: Other (joint infection) Labs Labs: Sodium 135 mmol/L (133-145) 05/17/25 09:50 Potassium 4.0 mmol/L (3.3-5.1) 05/17/25 09:50 Chloride 101 mmol/L (98-108) 05/17/25 09:50 Carbon Dioxide 20.2 mmol/L (21.0-32.0) L 05/17/25 09:50 Anion Gap 14 (5-15) 05/17/25 09:50 BUN 12 mg/dL (4-19) 05/17/25 09:50 Creatinine 0.87 mg/dL (0.70-1.20) 05/17/25 09:50 Est GFR (MDRD) Non-Af 94 (>60) 05/17/25 09:50 BUN/Creatinine Ratio 13.7 RATIO (10-20) 05/17/25 09:50 Glucose 112 mg/dL (70-99) H 05/17/25 09:50 Microbiology Microbiology: Microbiology 05/17/25 11:32 Fluid - Synovial (joint) Gram Stain - Final Pharmacy Plan for Drug Dosing Pharmacy Plan for Drug Dosing: NEW START IV VANCOMYCIN Consulting Physician: Rosendo Indication: joint infection Goal Trough: 15-20 mg/dL SrCr: 0.87 mg/dL CrCl: 80 mL/min Comments: given initial standard dose of 1250mg 05/17 @ 1527 for surgery Vancomycin Dose: Will start 1250mg Q12 (05/18 @ 0330) and get a level prior to 4th total dose per policy. Pending Level: 05/19/25 @ 0300 Pharmacy Service will continue to monitor and adjust dosing as required.
[2025-05-17 17:04] LABS: Bedside Glucose 148 mg/dL (74-106)
[2025-05-17 17:19] LABS: Hemoglobin A1c 7.1 % (<=5.6)
[2025-05-17] MEDS: oxyCODONE 5 MG Tablet PO ×2 (18:32→23:16)
[2025-05-17] MEDS: Acetaminophen 325 MG Tablet 650 MG PO (18:32)
[2025-05-17] MEDS: Insulin Lispro 100 UNIT/ML INSULN.PEN SC (20:52)
[2025-05-17 21:11] LABS: Bedside Glucose 237 mg/dL (74-106)
[2025-05-18] VITALS (8 sets, daily range): BP systolic 142–180; BP diastolic 72–85; PULSE 64–81; RESP 16–17; TEMP 36.6–37; O2SAT 94–99
[2025-05-18] MEDS: Vancomycin HCl 1,250 MG in 0.9% Normal Saline (250mL Bag) 250 ML 167 MG IV ×2 (04:03→15:19)
[2025-05-18 06:06] LABS: Hematocrit 40.8 % (40-54); Hemoglobin 13.2 g/dL (13.0-16.5); Mean Corp Hgb Conc 32.4 g/dL (32-36); Mean Corpuscular Hgb 28.1 pg (27.0-32.0); Mean Platelet Vol. 9.2 fl (6.2-12.0); Platelet Count 282 K/mm3 (150-450); RBC Distribution Width CV 14.3 % (11.6-14.6); RBC Distribution Width SD 45.8 fl (35.1-43.9); Red Blood Count 4.69 M/mm3 (4.6-6.2); White Blood Count 15.2 K/mm3 (4.4-11.0)
[2025-05-18] MEDS: Insulin Lispro 100 UNIT/ML INSULN.PEN SC ×4 (06:18→20:45)
[2025-05-18 06:36] LABS: Bedside Glucose 195 mg/dL (74-106)
--- NOTE | 2025-05-18 07:25 | PN.HOSP_ITS ---
Reason for Visit Reason for Visit: Diagnoses Pyogenic arthritis, unspecified (05/17/25) Other chondrocalcinosis, left knee (05/17/25) Other intervertebral disc degeneration, lumbar region without mention of lumbar back pain or lower extremity pain (05/17/25) Subjective Subjective Left knee feeling better. Objective Data Objective Data Vital Signs: Vital Signs Temp Pulse Resp BP Pulse Ox O2 Del Method 36.6 C 64 16 142/74 H 94 Room Air 05/18/25 04:21 05/18/25 04:05/18/25 04:21 05/18/25 04:21 05/18/25 04:05/18/25 04:21 Oxygen Delivery Method Room Air Weight: 78.4 kg Body Mass Index (BMI) 27.8 Intake & Output: Intake and Output for Last 24 Hours 05/16/25 05/17/25 05/18/25 23:59 23:59 23:59 Intake Total 825 / 825 525 / 525 Output Total 303 / 303 150 / 150 Balance 522 / 522 375 / 375 Lab / Micro Data 05/18/25 05:47 05/18/25 05:47 Labs: Laboratory Results - last 24 hr 05/17/25 09:50: WBC 17.5 H, RBC 5.43, Hgb 15.5, Hct 46.6, MCV 85.8, MCH 28.5, MCHC 33.3, RDW Std Deviation 44.8 H, RDW Coeff of Kranthi 14.3, Plt Count 297, MPV 9.1, Immature Gran % (Auto) 0.200, Neut % (Auto) 51.0, Lymph % (Auto) 37.9, [place] % (Auto) 9.4, Eos % (Auto) 1.0, Baso % (Auto) 0.5, Absolute Neuts (auto) 8.9 H, Absolute Lymphs (auto) 6.61 H, Nucleated RBC % 0, ESR 45 H, Sodium 135, Potassium 4.0, Chloride 101, Carbon Dioxide 20.2 L, Anion Gap 14, BUN 12, Creatinine 0.87, Estim Creat Clear Calc 80.05, Est GFR (MDRD) Non-Af 94, BUN/Creatinine Ratio 13.7, Glucose 112 H, Hemoglobin A1c 7.1 H, Calcium 9.6, Total Bilirubin 0.47, AST 19, ALT 9, Alkaline Phosphatase 66, C-React Prot Ext Range 19.80 H, Total Protein 7.1, Albumin 4.0, Globulin 3.1, Albumin/Globulin Ratio 1.3 05/17/25 11:32: Fluid Crystals NO CRYSTALS SEEN, Fluid Crystal Source SYNOVIAL, Fl Crystal Path Review Will follow, Synovial Source LT KNEE, Synovial Color Yellow, Synovial Appearance Cloudy, Synovial Viscosity Mod. Viscous, Synovial WBC 15.3600 H, Synovial RBC 0.008 H, Synovial Tot Cell Ct 15.3980 H, Synov Polynuclear WBCs 11.969, Synov Mononuclear WBCs 1.353, Synovial Neutrophils 73 H , Synovial Lymphocytes 1, Synovial Monocytes 26, Synovial Polynuclear % 89.8, Synovial Mononuclear % 10.2, Synovial Path Comment May follow 05/17/25 16:26: POC Glucose 138 H 05/17/25 16:45: POC Glucose 148 H 05/17/25 20:49: POC Glucose 237 H 05/18/25 05:47: WBC 15.2 H, RBC 4.69, Hgb 13.2, Hct 40.8, MCV 87.0, MCH 28.1, MCHC 32.4, RDW Std Deviation 45.8 H, RDW Coeff of Kranthi 14.3, Plt Count 282, MPV 9.2 05/18/25 06:17: POC Glucose 195 H Micro: Microbiology 05/17/25 11:32 Fluid - Synovial (joint) Gram Stain - Final Radiography Diagnostic Testing: Radiology Impression Knee X-Ray 05/17/25 11:10 IMPRESSION: No acute fracture or dislocations. Mild to moderate degenerative changes of the left knee with chondrocalcinosis. Moderate soft tissue edema. Large joint effusion. No radiographic foreign body. Reading Location: [id number] Lumbar Spine X-Ray 05/17/25 11:10 IMPRESSION: No acute process identified. Degenerative disc disease [facility] Physical Exam Const alert and no apparent distress Constitutional Narrative: up in chair. Non-toxic. Afebrile. HEENT head/scalp atraumatic and moist oral mucous membranes Resp normal respiratory effort and no retractions Extremity Extremity Narrative: left knee dressing taken down. minimal effusion. No surrounding erythema. Neuro Sensorium / Orientation: awake and alert Assessment & Plan Assessment/Plan (1) Septic arthritis of knee, left: PLAN: Orthopedics following. Patient underwent a left knee irrigation debridement, removal of the loose body. That was performed . Cultures pending. Fluid studies: no crystals. WBCs 15.3. Abx w CTX and vancomycin ID consultation for long-term abx. PLAN: Plan Chronic conditions * Coronary artery disease with history of stents. On aspirin. Clopidogrel held for now. * Hypertension: Continue with lisinopril * Diabetes mellitus type 2: On sliding scale insulin VTE prophylaxis: LMWH Charges/Coding Visit Charges Inpatient E&M: 76099 Subs Hosp L2
[2025-05-18 07:33] LABS: Anion Gap 10 (5-15); BUN 17 mg/dL (4-19); BUN/Creat Ratio 18.7 RATIO (10-20); Calcium,Total 8.8 mg/dL (7.6-11.0); Carbon Dioxide 21.7 mmol/L (21.0-32.0); Chloride 103 mmol/L (98-108); Creatinine, Serum 0.92 mg/dL (0.70-1.20); EST Glomerular Filtration Rate 91 (>60); Glucose 185 mg/dL (70-99); Potassium 4.6 mmol/L (3.3-5.1); Sodium Level 134 mmol/L (133-145)
[2025-05-18] MEDS: Lisinopril 40 MG Tablet PO (08:19)
[2025-05-18] MEDS: Fenofibrate 145 MG Tablet PO (08:29)
[2025-05-18] MEDS: Ezetimibe 10 MG Tablet PO (08:29)
[2025-05-18] MEDS: Rosuvastatin 20 MG Tablet 40 MG PO (08:29)
[2025-05-18] MEDS: Pantoprazole Sodium 40 MG Tablet PO (08:29)
[2025-05-18] MEDS: Enoxaparin 40 MG/0.4 ML Syringe SC (08:29)
[2025-05-18] MEDS: Ceftriaxone 2 GM in 0.9% Normal Saline (50mL MB+) 50 ML IV (08:30)
[2025-05-18] MEDS: Aspirin E.C. 81 MG Tablet PO (08:30)
[2025-05-18] MEDS: oxyCODONE 5 MG Tablet PO ×2 (10:24→15:28)
[2025-05-18 11:48] LABS: Bedside Glucose 186 mg/dL (74-106)
[2025-05-18] MEDS: 0.9% Saline Lock 10 ML Syringe IV ×3 (15:21→20:47)
[2025-05-18] MEDS: Acetaminophen 325 MG Tablet 650 MG PO (15:28)
[2025-05-18] MEDS: hydrALAZINE 20 MG/ML Vial 10 MG IV ×2 (15:39→20:45)
[2025-05-18 16:32] LABS: Bedside Glucose 191 mg/dL (74-106)
[2025-05-18 21:34] LABS: Bedside Glucose 178 mg/dL (74-106)
[2025-05-19] MEDS: oxyCODONE 5 MG Tablet PO ×2 (02:01→10:03)
[2025-05-19 04:23] LABS: Vancomycin, Trough Level 12.9 ug/mL (5.0-15.0)
[2025-05-19] MEDS: Vancomycin HCl 1,500 MG in 0.9% Normal Saline (500mL Bag) 500 ML 250 MG IV (04:35)
--- NOTE | 2025-05-19 04:41 | PCM.RX.CS ---
Consult Antibiotic Management Pharmacy has been consulted to manage selected antibiotic: Vancomycin Type of Intervention Type of Consult: Follow-up Labs Labs: Sodium 134 mmol/L (133-145) 05/18/25 05:47 Potassium 4.6 mmol/L (3.3-5.1) 05/18/25 05:47 Chloride 103 mmol/L (98-108) 05/18/25 05:47 Carbon Dioxide 21.7 mmol/L (21.0-32.0) 05/18/25 05:47 Anion Gap 10 (5-15) 05/18/25 05:47 BUN 17 mg/dL (4-19) 05/18/25 05:47 Creatinine 0.92 mg/dL (0.70-1.20) 05/18/25 05:47 Est GFR (MDRD) Non-Af 91 (>60) 05/18/25 05:47 BUN/Creatinine Ratio 18.7 RATIO (10-20) 05/18/25 05:47 Glucose 185 mg/dL (70-99) H 05/18/25 05:47 Vancomycin Trough 12.9 ug/mL (5.0-15.0) 05/19/25 03:09 Microbiology Microbiology: Microbiology 05/17/25 11:32 Fluid - Synovial (joint) Gram Stain - Final Dosing Weight Weight used for dosin.4 kg Estimated Creatinine Clearance Estimated Creatinine Clearance: 76 Goal Trough Goal Trough: 15-20 mcg/mL Pharmacy Plan for Drug Dosing Pharmacy Plan for Drug Dosing: Vancomycin trough level of 12.9, drawn 11.8hrs post-dose, was below the target range of 15-20. Will increase dose to 1500mg q12h, and will draw a trough prior to the fourth dose of the new regimen. Pharmacy Service will continue to monitor and adjust dosing as required. Follow-Up Labs Follow-Up Labs: Trough: Vancomycin Date/Time Labs Ordered Labs to be done on [date and time ordered]: 05/20/25 @1600
[2025-05-19 04:42] VITALS: BP 175/90; PULSE 79
[2025-05-19] MEDS: hydrALAZINE 20 MG/ML Vial 10 MG IV ×2 (04:42→11:31)
[2025-05-19 04:49] VITALS: BP 175/70; PULSE 79; RESP 16; TEMP 36.9; O2SAT 97
[2025-05-19 05:13] LABS: Bedside Glucose 136 mg/dL (74-106)
--- NOTE | 2025-05-19 07:37 | PN.HOSP_ITS ---
Reason for Visit Reason for Visit: Diagnoses Pyogenic arthritis, unspecified (05/17/25) Other chondrocalcinosis, left knee (05/17/25) Other intervertebral disc degeneration, lumbar region without mention of lumbar back pain or lower extremity pain (05/17/25) Subjective Subjective Feeling well. Ready to go home. Objective Data Objective Data Vital Signs: Vital Signs Temp Pulse Resp BP Pulse Ox O2 Del Method 36.9 C 79 16 175/70 H 97 Room Air 05/19/25 04:49 05/19/25 04:49 05/19/25 04:49 05/19/25 04:49 05/19/25 04:49 05/19/25 04:49 Oxygen Delivery Method Room Air Weight: 78.4 kg Body Mass Index (BMI) 27.8 Intake & Output: Intake and Output for Last 24 Hours 05/17/25 05/18/25 05/19/25 23:59 23:59 23:59 Intake Total 825 / 825 1690 / 1690 1230 / 1230 Output Total 303 / 303 150 / 150 Balance 522 / 522 1540 / 1540 1230 / 1230 Lab / Micro Data 05/19/25 03:09 05/19/25 03:09 Labs: Laboratory Results - last 24 hr 05/18/25 11:27: POC Glucose 186 H 05/18/25 16:07: POC Glucose 191 H 05/18/25 20:44: POC Glucose 178 H 05/19/25 03:09: Vancomycin Trough 12.9 05/19/25 04:47: POC Glucose 136 H Micro: Microbiology 05/17/25 11:32 Fluid - Synovial (joint) Gram Stain - Final Physical Exam Const alert and no apparent distress HEENT head/scalp atraumatic and moist oral mucous membranes Resp normal respiratory effort and no retractions Extremity Extremity Narrative: left knee effusion. no warmth. Skin Skin Narrative: no rash. no erythema. Neuro moves all extremities Sensorium / Orientation: awake and alert Speech: speech normal Psych affect normal Assessment & Plan Assessment/Plan (1) Septic arthritis of knee, left: PLAN: Orthopedics following. Patient underwent a left knee irrigation debridement, removal of the loose body. That was performed . Cultures pending. Fluid studies: no crystals. WBCs 15.3. Abx w CTX and vancomycin ID consultation for long-term abx. PLAN: Plan Chronic conditions * Coronary artery disease with history of stents. On aspirin. Clopidogrel held for now. * Hypertension: Continue with lisinopril * Diabetes mellitus type 2: On sliding scale insulin VTE prophylaxis: LMWH Charges/Coding Visit Charges Inpatient E&M: 79147 Subs Hosp L2
[2025-05-19 07:45] VITALS: BP 181/68; PULSE 96; RESP 16; TEMP 36.4; O2SAT 97
[2025-05-19 07:51] LABS: Absolute Lymphocyte Count 4.97 X10^3/uL (0.83-4.51); Absolute Neutrophil Count 8.7 X10^3/uL (2.0-7.7); Basophil# 0.05 X10^3/uL; Basophil% 0.3 % (0-1); Eosinophil# 0.03 X10^3/uL; Eosinophils% 0.2 % (0-5); Hematocrit 40.5 % (40-54); Hemoglobin 13.4 g/dL (13.0-16.5); Lymphocyte # 4.97 X10^3/ul (0.83-4.51); Lymphocyte % 33.1 % (19-41); Mean Corp Hgb Conc 33.1 g/dL (32-36); Mean Corpuscular Hgb 28.5 pg (27.0-32.0); Mean Corpuscular Volume 86.2 fL (80-94); Mean Platelet Vol. 9.5 fl (6.2-12.0); Monocyte# 1.26 X10^3/uL; Monocyte% 8.4 % (0-10); NRBC Flagged by Analyzer 0 % (0-5); Neutrophil # 8.66 X10^3/uL (2.7-7.7); Neutrophil % 57.7 % (47-70); Platelet Count 305 K/mm3 (150-450); RBC Distribution Width CV 14.3 % (11.6-14.6); RBC Distribution Width SD 45.1 fl (35.1-43.9)
[2025-05-19] MEDS: Aspirin E.C. 81 MG Tablet PO (07:55)
[2025-05-19 08:50] LABS: Anion Gap 12 (5-15); BUN 15 mg/dL (4-19); BUN/Creat Ratio 19.7 RATIO (10-20); Calcium,Total 9.1 mg/dL (7.6-11.0); Chloride 105 mmol/L (98-108); Creatinine, Serum 0.77 mg/dL (0.70-1.20); EST Glomerular Filtration Rate 98 (>60); Estimated Creatinine Clearance 87.05 ml/min (50-250); Glucose 130 mg/dL (70-99); Potassium 4.1 mmol/L (3.3-5.1); Sodium Level 138 mmol/L (133-145)
[2025-05-19] MEDS: Ceftriaxone 2 GM in 0.9% Normal Saline (50mL MB+) 50 ML IV (09:57)
[2025-05-19] MEDS: Enoxaparin 40 MG/0.4 ML Syringe SC (09:59)
[2025-05-19] MEDS: Ezetimibe 10 MG Tablet PO (10:00)
[2025-05-19] MEDS: Lisinopril 40 MG Tablet PO (10:00)
[2025-05-19] MEDS: Pantoprazole Sodium 40 MG Tablet PO (10:00)
[2025-05-19] MEDS: Rosuvastatin 20 MG Tablet 40 MG PO (10:00)
[2025-05-19] MEDS: Fenofibrate 145 MG Tablet PO (10:00)
--- NOTE | 2025-05-19 10:57 | CASEMGMT ---
LUZ LAIRD Assessment: Face to Face with pt for initial transition planning/care coordination assessment. LUZ LAIRD introduced self and role at [facility], pt voices understanding and consents to assessment. Pt is A&O x4 and answers all questions appropriately at this time. Pt lying in bed in no distress. Care providers, pharmacy, and demographics verified/updated. Admitting Dx: L knee septic arthritis Strata Score: 3 PCP:Elroy Specialists:ALY, cardio; FRANK Mathew Preferred Pharmacy: [facility] Insurance: Varina MCR Dual, [facility] Prescription Benefit: yes LNOK: Lauren Dolan, ; Luke Dolan II, son Living Arrangements: Pt lives with , grandson and grandson's girlfriend in a mobile home with 3 steps to enter with a rail. Pt reports that he is I in ADL/IADLs and denies concerns at home. Transportation: Pt drives self and denies concerns with transportation. DME:BP cuff, HH shower, quad cane, shower chair HHC/SNF: Denies hx of Pt states no concerns with going home at time of dc. 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 No PT or OT recommended. ID c/s. Pt states no further concerns/needs. CM to follow. Advised pt to ask CM if any further questions/concerns/needs arise, voices understanding. Pt Goal: Home Plan: Home, pending ID cathryn Webb RN, CM
[2025-05-19 11:31] VITALS: BP 181/68; PULSE 96
[2025-05-19 11:33] LABS: Bedside Glucose 138 mg/dL (74-106)
--- NOTE | 2025-05-19 12:23 | CASEMGMT ---
Discharge Planning A list of?HH providers including quality and resource use data and consistent with the patient's preferred geographic region, medical needs, and insurance network was created in [employer] Guide.? This list was provided to the RN EITAN. Spring Bah, Discharge Planning Asst.
--- NOTE | 2025-05-19 12:57 | PCM.CONS.GEN ---
Assessment & Plan Assessment/Plan (1) Septic arthritis of knee, left: PLAN: Taken to OR 05/17/[address] Gonzales for washout. Cxs neg so far, wants to go home today. Will order picc and 3 weeks empiric vanc/ceftriaxone. Will adjust if more cx data comes in. ID followup in 2 weeks. 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 No known inciting event, no h/o gout. No recent skin infections. No fever or chills. Came to ED 05/17, aspiration done, taken to OR that day by Dr. Gonzales. Feeling better on vanc/ceftriaxone, wants to go home today. Full ROS performed and neg except as noted above. [facility] Medical History Diabetes High cholesterol Back pain Gastric reflux Smoker Cardiology follow-up encounter Presence of stent in coronary artery (~08/2008) Essential hypertension Ventral incisional hernia without obstruction or gangrene Hyperlipidemia Acute FL, anterior wall, subsequent episode of care Old myocardial infarction Syncope and collapse Dyspnea Chest pain Long-term use of high-risk medication Atherosclerotic heart disease of ione coronary artery without angina pectoris Home Medications ?Medication ?Instructions ?Recorded ?Last Taken ?Type fenofibrate 160 mg tablet 160 mg PO DAILY #30 tabs 12/17/18 05/16/25 Rx rosuvastatin 40 mg tablet (Crestor) 40 mg PO DAILY 06/05/19 05/17/25 History lisinopril 40 mg tablet 40 mg PO DAILY #90 tabs 12/13/21 05/17/25 Rx aspirin 81 mg tablet,delayed 81 mg PO DAILY 08/17/23 05/16/25 History release (Adult Aspirin Regimen) clopidogrel 75 mg tablet 75 mg PO DAILY #90 tabs 05/22/24 05/17/25 Rx ezetimibe 10 mg tablet 10 mg PO DAILY 05/17/25 05/17/25 History hydrocodone-acetaminophen 5-325mg 1 tab PO Q6H PRN PRN Pain 3 days 05/17/25 Unknown Rx 5mg-325mg #10 TABLETS metformin 500 mg tablet,extended 500 mg PO BID 05/17/25 05/17/25 History release 24 hr oxycodone-acetaminophen 5 mg-325 1 tab PO Q6H 05/17/25 05/16/25 History mg tablet pantoprazole 40 mg tablet,delayed 40 mg PO DAILY 05/17/25 05/17/25 History release ceftriaxone 2 gram intravenous 2 g IV DAILY 21 days 05/19/25 Unknown Rx solution vancomycin 1.5 gram intravenous 1.5 g IV Q12H 21 days 05/19/25 Unknown Rx solution Allergy/AdvReac Type Severity Reaction Status Date / Time atorvastatin calcium (From AdvReac Pain in Verified 05/17/25 09:30 Lipitor) joints Family History Father CAD (coronary artery disease) Diabetes Thyroid disorder Hypertension Cancer lung Mother Hypertension Aneurysm Brother CAD (coronary artery disease) Sister Congestive heart failure Surgical History History of ventral hernia repair (~08/2023) History of coronary artery stent placement History of cardiac catheterization History of cataract surgery Presence of coronary angioplasty implant and graft (~08/2008) History of umbilical hernia repair History of cholecystectomy (~02/2012) History of hernia repair History of tonsillectomy Social History Smoking Status: Current every day smoker tobacco type: cigarettes alcohol intake: current alcohol intake frequency: holidays/special occasions only substance use type: does not use caffeine: Yes Physical Exam Const alert, oriented x3 and no apparent distress General Appearance: cooperative HEENT normocephalic and head/scalp atraumatic Eyes PERRL and EOMs intact bilaterally Neck supple and No nodes Resp normal air movement and clear to auscultation bilaterally Cardio regular rate and regular rhythm GI soft to palpation, non-tender and non-distended Extremity General Extremity: Negative for edema Skin no rashes or lesions noted Skin Narrative: LLE wrapped Neuro CN's II-XII intact bilaterally Lab / Micro Data Attestation: I reviewed the patient's lab results. 05/19/25 03:09 05/19/25 03:09 Labs: Laboratory Results - last 24 hr 05/18/25 16:07: POC Glucose 191 H 05/18/25 20:44: POC Glucose 178 H 05/19/25 03:09: WBC 15.0 H, RBC 4.70, Hgb 13.4, Hct 40.5, MCV 86.2, MCH 28.5, MCHC 33.1, RDW Std Deviation 45.1 H, RDW Coeff of Kranthi 14.3, Plt Count 305, MPV 9.5, Immature Gran % (Auto) 0.300, Neut % (Auto) 57.7, Lymph % (Auto) 33.1, [place] % (Auto) 8.4, Eos % (Auto) 0.2, Baso % (Auto) 0.3, Absolute Neuts (auto) 8.7 H, Absolute Lymphs (auto) 4.97 H, Nucleated RBC % 0, Sodium 138, Potassium 4.1, Chloride 105, Carbon Dioxide 21.0, Anion Gap 12, BUN 15, Creatinine 0.77, Estim Creat Clear Calc 87.05, Est GFR (MDRD) Non-Af 98, BUN/Creatinine Ratio 19.7, Glucose 130 H, Calcium 9.1, Vancomycin Trough 12.9 05/19/25 04:47: POC Glucose 136 H 05/19/25 11:15: POC Glucose 138 H Micro: Microbiology 05/17/25 11:32 Fluid - Synovial (joint) Gram Stain - Final 05/17/25 11:32 Fluid - Synovial (joint) Body Fluid Culture - Preliminary No growth-Final to follow 05/17/25 11:32 Fluid - Synovial (joint) Anaerobic Culture - Preliminary No growth in 48 hours.
--- NOTE | 2025-05-19 13:01 | CASEMGMT ---
Addendum entered by Maricarmen Dodson 05/19/25 16:26: [facility]. Addendum entered by Maricarmen Dodson 05/19/25 15:39: LUZ LAIRD into pt room, pt aware of [facility] delivering med tonight and HH to see him in the morning. Provided pt with a BGM rx at this time. Updated hospitalist that IV all set up. Addendum entered by Maricarmen Dodson 05/19/25 14:56: Picc insertion sent to [facility] at this time. [facility] confirmed they will have med delivered by end of day today. Addendum entered by Maricarmen Dodson 05/19/25 14:18: LUZ LAIRD into pt room, pt just had picc inserted. Pt states his dtr is coming to pick him up at 3pm. He is aware this will not be set up by 3pm but hopefully soon. He is aware that [facility] and [facility] have accepted him, he chose [facility]. Addendum entered by Maricarmen Dodson 05/19/25 14:13: [facility] accepted pt for services as well as [facility]. [facility] and [facility] declined pt. ID c/s sent to [facility] at this time. Addendum entered by Maricarmen Dodson 05/19/25 13:22: Referral sent to all IND[employer] OPER[employer] via [facility] and tc to [facility] and referral made. [facility] TC from John at [facility], he will check with nurse educator to see availability for teaching prior to dc. Original Note: Received IV atb rx from ID. He states pt reported that pt was leaving one way or another this date. 1250- RN EITAN into pt room, pt sitting up in chair, dressed and on the phone. Provided pt with a INDUST[employer] OPERATOR list created by dc radiology assistant. Discussed that pt will have 2 iv's at home. Pt states he will learn. Provided him with a local in network list of infusion companies, pt chose [facility]. Pt is aware that he needs a picc inserted as well as HH and the med to be delivered for dc. Pt states that if it is not done by 4pm, he is leaving. Pt states he will come back. Pt aware that he would need to be admitted again if this is the case. He is aware this RN CM will work on getting this done today. Pt maintains he is leaving regardless. He is aware he may need to be rehospitalized for this. He states I have things to do. LUZ LAIRD to follow. Updated hospitalist.
[2025-05-19 13:31] LABS: Pathologist Review Reviewed
[2025-05-19 14:36] VITALS: BP 150/64; PULSE 90; RESP 16; TEMP 36.5; O2SAT 99
--- NOTE | 2025-05-19 15:48 | DS.PCM_ITS ---
Providers Date of Admission: 05/17/25 Primary Care Physician: SOL ROSS Consultations 05/17/25 16:40 Consult: Infectious Disease Routine Consulting Provider: Say Flores Reason for Consult: left knee septic arthritis EMERGENT Consult: No Notified: Yes Date Notified: 05/19/25 Time Notified: 06:30 Method of Notification: Text 05/18/25 13:38 Consult: Orthopedics Routine Consulting Provider: Dom Gonzales Reason for Consult: left knee effusion EMERGENT Consult: No Notified: Yes Date Notified: 05/18/25 Time Notified: 13:38 Method of Notification: ED Physician Initiated Reason For Visit: LEFT KNEE SEPTIC ARTHRITIS Diagnosis Discharge Diagnosis (1) Septic arthritis of knee, left: Status: Acute Code(s): M00.9 - Pyogenic arthritis, unspecified Plan: Orthopedics following. Patient underwent a left knee irrigation debridement, removal of the loose body. That was performed . Cultures pending. Fluid studies: no crystals. WBCs 15.3. Abx w CTX and vancomycin ID consultation for long-term abx. And is recommending 3 weeks of vancomycin and ceftriaxone. Cultures are still pending and antibiotics may be further adjusted based on the culture results to become available. Patient did have PICC line placed and will be discharged home to continue with home care. Patient will miss a dose of IV antibiotics tonight which is okayed by him as he has been wanting to go home. Home care will start tomorrow, on the . Plan Chronic conditions * Coronary artery disease with history of stents. On aspirin. Clopidogrel held for now. * Hypertension: Continue with lisinopril * Diabetes mellitus type 2: On sliding scale insulin VTE prophylaxis: LMWH Medications at Discharge Home Medications fenofibrate 160 mg tablet 160 mg PO DAILY #30 tabs 12/17/18 rosuvastatin 40 mg tablet (Crestor) 40 mg PO DAILY 06/05/19 lisinopril 40 mg tablet 40 mg PO DAILY #90 tabs 12/13/21 aspirin 81 mg tablet,delayed release (Adult Aspirin Regimen) 81 mg PO DAILY 08/17/23 clopidogrel 75 mg tablet 75 mg PO DAILY #90 tabs 05/22/24 ezetimibe 10 mg tablet 10 mg PO DAILY 05/17/25 hydrocodone-acetaminophen 5-325mg 5mg-325mg 1 tab PO Q6H PRN PRN Pain 3 days #10 TABLETS 05/17/25 metformin 500 mg tablet,extended release 24 hr 500 mg PO BID 05/17/25 oxycodone-acetaminophen 5 mg-325 mg tablet 1 tab PO Q6H 05/17/25 pantoprazole 40 mg tablet,delayed release 40 mg PO DAILY 05/17/25 ceftriaxone 2 gram intravenous solution 2 g IV DAILY 21 days 05/19/25 vancomycin 1.5 gram intravenous solution 1.5 g IV Q12H 21 days 05/19/25 Hospital Course Operations - (Left knee irrigation and debridement, extensive, removal of loose body.) Procedures None Summary of Care Provided Minutes Spent on Discharge: 32 Hospital Course: Patient presented with warm swollen knee. Concern for septic arthritis. Patient was taken to the OR on the by Dr. Gonzales where he underwent incision and debridement of the knee that was extensive and as well as a removal of loose body. Patient tolerated the procedure well. Cultures were pending. Patient was on broad-spectrum antibiotics and has done well. Patient was seen by infectious disease and recommended 3 weeks of IV vancomycin and ceftriaxone. Further adjustments to antibiotics would be assessed by infectious disease as more culture data became available. Patient be weightbearing as tolerated and range of motion as tolerated. Patient advised to keep the incision clean and dry but avoid getting wet for the time being. Patient to follow-up with orthopedics as outpatient. Weight / BMI Weight Weight: 78.4 kg Body Mass Index (BMI) 27.8 ABG / Lab / Microbiology Data 05/19/25 03:09 05/19/25 03:09 Laboratory: Laboratory Results - last 24 hr 05/17/25 11:32: Fl Crystal Path Review Reviewed 05/18/25 16:07: POC Glucose 191 H 05/18/25 20:44: POC Glucose 178 H 05/19/25 03:09: WBC 15.0 H, RBC 4.70, Hgb 13.4, Hct 40.5, MCV 86.2, MCH 28.5, MCHC 33.1, RDW Std Deviation 45.1 H, RDW Coeff of Kranthi 14.3, Plt Count 305, MPV 9.5, Immature Gran % (Auto) 0.300, Neut % (Auto) 57.7, Lymph % (Auto) 33.1, [place] % (Auto) 8.4, Eos % (Auto) 0.2, Baso % (Auto) 0.3, Absolute Neuts (auto) 8.7 H, Absolute Lymphs (auto) 4.97 H, Nucleated RBC % 0, Sodium 138, Potassium 4.1, Chloride 105, Carbon Dioxide 21.0, Anion Gap 12, BUN 15, Creatinine 0.77, Estim Creat Clear Calc 87.05, Est GFR (MDRD) Non-Af 98, BUN/Creatinine Ratio 19.7, G lucose 130 H, Calcium 9.1, Vancomycin Trough 12.9 05/19/25 04:47: POC Glucose 136 H 05/19/25 11:15: POC Glucose 138 H Microbiology: Microbiology 05/17/25 11:32 Fluid - Synovial (joint) Gram Stain - Final 05/17/25 11:32 Fluid - Synovial (joint) Body Fluid Culture - Preliminary No growth-Final to follow 05/17/25 11:32 Fluid - Synovial (joint) Anaerobic Culture - Preliminary No growth in 48 hours. D/C Instructions Discharge Diet: No restrictions DC O2, CPAP, BIPAP Needs Home O2 Discharge instructions: No Meaningful Use Info Meaningful Use Meaningful Use Diagnoses (Choose all that apply): None applicable Ischemic Stroke Statin Dosing Therapy Reference: STATIN DOSE THERAPY REFERENCE: * Patients > 75 years receive moderate or high dose statin therapy. * Patients 75 years or YOUNGER should receive HIGH intensity statin dose unless contraindicated. You will be required to document reason for non-treatment if statin daily dose does not meet guidelines. HIGH DOSE STATIN THERAPY DAILY Atorvastatin > than or = to 40 mg Rosuvastatin > than or = to 20 mg Amlodipine + Atorvastatin > than or = to 2.5/40 mg Ezetimibe + Simvastatin 10/80 mg Simvastatin 80mg Discharge Plan Admission Admit Date/Time: 05/17/25 16:08 Primary Reason for Your Visit: Left knee septic arthritis Attending Provider: Aaron Razo Primary Care Provider: TYRONE DEJESUS Consulting Providers: Erickson Robbins; Dom Gonzales; Say Flores Instructions Patient Instructions: ED Degenerative Disk Disease Additional Instructions / Restrictions: Weightbearing to left knee as you can tolerate. Continue with IV antibiotics per infectious diseases recommendations. If you notice increased swelling, increased redness or warmth of your knee, contact physician or return to the emergency room. Avoid getting the incision wet. Discharge Orders/Prescriptions Prescriptions: New hydrocodone-acetaminophen 5-325 mg tablet 1 tab PO Q6H PRN PRN (Reason: Pain) 3 Days Qty: 10 0RF ceftriaxone 2 gram recon soln 2 g IV DAILY 21 Days Rx Instructions: stop date 06/09/25. Dx: septic arthritis. Weekly bmp, cbc, esr, and vanc trough. Fax to [phone]. Routine picc care per protocol. vancomycin 1.5 gram recon soln 1.5 g IV Q12H 21 Days Rx Instructions: stop date 06/09/25. Dx: septic arthritis. Weekly bmp, cbc, esr, and vanc trough. Fax to [phone]. Routine picc care per protocol. Continued fenofibrate 160 mg tablet 160 mg PO DAILY Qty: 30 11RF rosuvastatin [Crestor] 40 mg tablet 40 mg PO DAILY clopidogrel 75 mg tablet 75 mg PO DAILY Qty: 90 3RF aspirin [Adult Aspirin Regimen] 81 mg tablet,delayed release (DR/EC) 81 mg PO DAILY oxycodone-acetaminophen 5-325 mg tablet 1 tab PO Q6H metformin 500 mg tablet extended release 24 hr 500 mg PO BID ezetimibe 10 mg tablet 10 mg PO DAILY pantoprazole 40 mg tablet,delayed release (DR/EC) 40 mg PO DAILY lisinopril 40 mg tablet 40 mg PO DAILY Qty: 90 3RF Referrals / Follow Up: Say Back DO [Non-Staff] - Within 2 Weeks Dom Gonzales MD [Med Staff - Active Staff] - Within 2 Weeks Disposition Disposition (needs filled in before D/C Order can be placed): Home Health Service Charges/Coding Visit Charges Inpatient E&M: 95522 Disch Hosp >30min
--- NOTE | 2025-05-19 16:02 | PN.ORTHO_ITS ---
Subjective Subjective POD 2 L knee I and D. doing well. no concerns. feels fine, much better. Objective Data Objective Data Vital Signs: Vital Signs Temp Pulse Resp BP Pulse Ox O2 Del Method 97.7 F L 90 16 150/64 H 99 Room Air 05/19/25 14:36 05/19/25 14:36 05/19/25 14:36 05/19/25 14:36 05/19/25 14:36 05/19/25 14:36 Oxygen Delivery Method Room Air Weight: 172 lb 13.478 oz Body Mass Index (BMI) 27.8 Intake & Output: Intake and Output for Last 24 Hours 05/17/25 05/18/25 05/19/25 23:59 23:59 23:59 Intake Total 825 / 825 1690 / 1690 1280 / 1280 Output Total 303 / 303 150 / 150 Balance 522 / 522 1540 / 1540 1280 / 1280 Lab / Micro Data 05/19/25 03:09 05/19/25 03:09 Labs: Laboratory Results - last 24 hr 05/17/25 11:32: Fl Crystal Path Review Reviewed 05/18/25 16:07: POC Glucose 191 H 05/18/25 20:44: POC Glucose 178 H 05/19/25 03:09: WBC 15.0 H, RBC 4.70, Hgb 13.4, Hct 40.5, MCV 86.2, MCH 28.5, MCHC 33.1, RDW Std Deviation 45.1 H, RDW Coeff of Kranthi 14.3, Plt Count 305, MPV 9.5, Immature Gran % (Auto) 0.300, Neut % (Auto) 57.7, Lymph % (Auto) 33.1, [place] % (Auto) 8.4, Eos % (Auto) 0.2, Baso % (Auto) 0.3, Absolute Neuts (auto) 8.7 H, Absolute Lymphs (auto) 4.97 H, Nucleated RBC % 0, Sodium 138, Potassium 4.1, Chloride 105, Carbon Dioxide 21.0, Anion Gap 12, BUN 15, Creatinine 0.77, Estim Creat Clear Calc 87.05, Est GFR (MDRD) Non-Af 98, BUN/Creatinine Ratio 19.7, G lucose 130 H, Calcium 9.1, Vancomycin Trough 12.9 05/19/25 04:47: POC Glucose 136 H 05/19/25 11:15: POC Glucose 138 H Micro: Microbiology 05/17/25 11:32 Fluid - Synovial (joint) Gram Stain - Final 05/17/25 11:32 Fluid - Synovial (joint) Body Fluid Culture - Preliminary No growth-Final to follow 05/17/25 11:32 Fluid - Synovial (joint) Anaerobic Culture - Preliminary No growth in 48 hours. Physical Exam Const alert and oriented x3 Extremity normal capillary refill Extremity Narrative: ROM 0-120, steris in place, trace effusion, nvi, no redness or warmth. Assessment & Plan Assessment/Plan (1) Chondrocalcinosis of left knee: PLAN: 69 yr M POD 2 L SA of the knee. OK to dc, FU 2 weeks in office. ABX arranged per ID. Keep incision dry. ROM and WBAT (2) Septic arthritis of knee, left:
[2025-05-20 07:27] LABS: Pathologist Comment May follow
== END 2025-05-19 16:13 | disposition home health service (06) | DRG 550 ==
LOC: ED 13:37 → SDC 13:38 → ACINP 13:39 → MS3 16:36 → SDC 16:38 → MS3 16:38
PROVIDERS: Orthopaedic Surgery Sports Medicine; Admitting Provider Hospitalist; Emergency Provider Emergency Medicine; PCP Nurse Practitioner Family; Referring Provider Hospitalist
PROC: 0HDLXZZ Extraction of Left Lower Leg Skin, External Approach (ICD-10-PCS; CPT 29870; principal; 2025-05-17 15:00)
DX: M00.862 Arthritis due to other bacteria, left knee (principal); E11.69 Type 2 diabetes mellitus with other specified complication; I10 Essential (primary) hypertension; I70.0 Atherosclerosis of aorta; M17.12 Unilateral primary osteoarthritis, left knee; F17.210 Nicotine dependence, cigarettes, uncomplicated; I25.10 Atherosclerotic heart disease of native coronary artery without angina pectoris; E78.2 Mixed hyperlipidemia; K21.9 Gastro-esophageal reflux disease without esophagitis; M11.262 Other chondrocalcinosis, left knee; M10.9 Gout, unspecified; Z95.5 Presence of coronary angioplasty implant and graft; M65.90 Unspecified synovitis and tenosynovitis, unspecified site; Z83.3 Family history of diabetes mellitus; Z79.84 Long term (current) use of oral hypoglycemic drugs; Z82.49 Family history of ischemic heart disease and other diseases of the circulatory system; Z79.82 Long term (current) use of aspirin; M51.360 Other intervertebral disc degeneration, lumbar region with discogenic back pain only; Z79.02 Long term (current) use of antithrombotics/antiplatelets; Z79.899 Other long term (current) drug therapy
CPT/HCPCS: 36415; 36569; 72100; 73564; 80048; 80053; 80202; 82962; 83036; 85025; 85027; 85652; 86140; 87070; 87075; 87205; 89050; 89051; 89060; 93005; 94668; 97162; 97165; 99284; A4216; J0696; J2405

== ENCOUNTER → 2025-05-27 | Outpatient (CLI) | payer MEDICARE, MEDICAID, SELFPAY ==
[2025-05-27 13:24] LABS: Vancomycin, Trough Level 21.9 ug/mL (5.0-15.0)
[2025-05-27 13:26] LABS: Anion Gap 12 (5-15); BUN 16 mg/dL (4-19); BUN/Creat Ratio 20.5 RATIO (10-20); Calcium,Total 9.9 mg/dL (7.6-11.0); Carbon Dioxide 21.6 mmol/L (21.0-32.0); Chloride 101 mmol/L (98-108); Glucose 111 mg/dL (70-99); Potassium 4.2 mmol/L (3.3-5.1)
[2025-05-27 13:45] LABS: Hematocrit 42.0 % (40-54); Hemoglobin 13.9 g/dL (13.0-16.5); Mean Corp Hgb Conc 33.1 g/dL (32-36); Mean Corpuscular Volume 86.2 fL (80-94); Mean Platelet Vol. 9.3 fl (6.2-12.0); Platelet Count 409 K/mm3 (150-450); RBC Distribution Width CV 14.3 % (11.6-14.6); RBC Distribution Width SD 45.1 fl (35.1-43.9); Red Blood Count 4.87 M/mm3 (4.6-6.2); White Blood Count 20.2 K/mm3 (4.4-11.0)
== END | disposition home or self-care (01) ==
LOC: LABSPEC 09:31
PROVIDERS: PCP Nurse Practitioner Family; Visit Provider Internal Medicine Infectious Disease
DX: M00.9 Pyogenic arthritis, unspecified (principal); I10 Essential (primary) hypertension
CPT/HCPCS: 80048; 80202; 85027; 85652

== ENCOUNTER → 2025-06-03 | Outpatient (CLI) | payer MEDICARE, MEDICAID, SELFPAY ==
[2025-06-03 12:48] LABS: Hematocrit 41.2 % (40-54); Hemoglobin 13.4 g/dL (13.0-16.5); Mean Corp Hgb Conc 32.5 g/dL (32-36); Mean Corpuscular Volume 87.8 fL (80-94); Mean Platelet Vol. 9.1 fl (6.2-12.0); Platelet Count 387 K/mm3 (150-450); RBC Distribution Width CV 14.4 % (11.6-14.6); RBC Distribution Width SD 45.7 fl (35.1-43.9); Red Blood Count 4.69 M/mm3 (4.6-6.2); White Blood Count 11.9 K/mm3 (4.4-11.0)
[2025-06-03 13:07] LABS: Anion Gap 11 (5-15); BUN 11 mg/dL (4-19); BUN/Creat Ratio 11.4 RATIO (10-20); Calcium,Total 9.4 mg/dL (7.6-11.0); Carbon Dioxide 23.1 mmol/L (21.0-32.0); Chloride 101 mmol/L (98-108); Glucose 247 mg/dL (70-99); Potassium 3.8 mmol/L (3.3-5.1)
[2025-06-03 13:09] LABS: Vancomycin, Trough Level 26.3 ug/mL (5.0-15.0)
== END | disposition home or self-care (01) ==
LOC: LABSPEC 10:19
PROVIDERS: PCP Nurse Practitioner Family; Visit Provider Internal Medicine Infectious Disease
DX: M00.9 Pyogenic arthritis, unspecified (principal); I10 Essential (primary) hypertension
CPT/HCPCS: 80048; 80202; 85027; 85652

== ENCOUNTER → 2025-06-05 | Outpatient (CLI) | payer MEDICARE, MEDICAID, SELFPAY ==
[2025-06-05 10:53] LABS: Anion Gap 10 (5-15); BUN 13 mg/dL (4-19); BUN/Creat Ratio 12.4 RATIO (10-20); Calcium,Total 9.7 mg/dL (7.6-11.0); Carbon Dioxide 24.8 mmol/L (21.0-32.0); Chloride 104 mmol/L (98-108); Glucose 104 mg/dL (70-99); Potassium 4.0 mmol/L (3.3-5.1); Vancomycin, Trough Level 18.6 ug/mL (5.0-15.0)
--- OUTSIDE RECORDS SUMMARY | 2025-06-05 19:43 | XMS RPT_ITS | CCD ---
Author Organization [facility] Care Team Providers Care Telecom Billing Analyst Name Role Phone Augusta Evans Unavailable CAMDEN BRIONES DO Primary Care Physician [phone] CAMDEN BRIONES DO Primary Care Physician [phone] Dr. Camden Briones Primary Care Provider Dr. Camden Briones Referring Provider [phone] Parag MORGAN, SOL Melchor Attending Provider Dr. Chary Fontaine Attending Provider Dr. Aaron Roy Attending Provider [phone] Dr. Camden Briones Primary Care Provider Dr. Camden Briones Referring Provider [phone] Dr. Jayesh Stein Referring Provider Dr. Chary Fontaine Referring Provider Dr. Chary Fontaine Other Provider CAMDEN BRIONES DO Attending Unavailable CAMDEN BRIONES DO Primary Care Unavailable CAMDEN BRIONES DO Attending Unavailable CAMDEN BRIONES DO Primary Care Unavailable Camden Briones DO Primary Care Provider [phone] CAMDEN BRIONES DO Primary Care Unavailable CAMDEN BRIONES DO Attending Unavailable CAMDEN BRIONES DO Attending Unavailable CAMDEN BRIONES DO Primary Care Unavailable DR LOCO WILDE MD Attending Unavailabl e CAMDEN BRIONES DO Primary Care Unavailable Dr. Camden Briones DO Primary Care Provider [phone] Dr. Loco Wilde MD Attending Provider Dr. Loco Wilde MD Referring Provider Dr. Camden Briones DO Attending Provider Dr. Camden Briones DO Referring Provider Dr. Camden Briones DO Primary Care Provider [phone] Dr. Mynor De Leon MD Emergency Provider OLEG COMMUNICATIONS CLERK-C, TYRONE Primary Care Provider Dr. Erickson Robbins DO Attending Provider Dom Gonzales MD Other Provider Dom Gonzales MD Attending Provider [phone] Moises GUEVARA, Dr. Lowe Emergency Provider OLEG COMMUNICATIONS CLERK-C, TYRONE Primary Care Provider [phone] Dom Gonzales MD Other Provider Rosendo GAVIRIA, Dr. Almendarez Admit Provider Dr. Erickson Robbins DO Referring Provider Dr. Erickson Robbins DO Other Provider Dr. Aaron Razo DO Attending Provider Dr. Camden Flores MD Other Provider Dr. Aaron Razo DO Other Provider Rosendo, Erickson Referring Unavailable Aaron Razo Attending Unavailable OLEG, TYRONE Primary Care Unavailable Mosteller, Erickson Consulting Unavailable Mosteller, Erickson Admitting Unavailable Mollison, Dom Consulting Unavailable Sandra, Camden Consulting Unavailable Jopperi, Aaron Consulting Unavailable Mollison, Dom Attending Unavailable OLEG, TYRONE Primary Care Unavailable Mollison, Dom Attending Unavailable Mollison, Dom Consulting Unavailable Mosteller, Erickson Attending Unavailable OLEG, TYRONE Primary Care Unavailable OLEG, TYRONE Referring Unavailable Mollison, Dom Attending Unavailable Mosteller, Erickson Consulting Unavailable Jopperi, Aaron Attending Unavailable OLEG, TYRONE Primary Care Unavailable Mosteller, Erickson Admitting Unavailable Mosteller, Erickson Referring Unavailable Mollison, Dom Consulting Unavailable Sandra, Camden Consulting Unavailable OLEG, TYRONE Primary Care Unavailable Sandra Camden Attending Unavailable Rafalbour, Vincizabela Referring Unavailable RafalLoco huggins Attending Unavailable Anselmo, Camden Primary Care Unavailable Camden Briones Primary Care Unavailable Camden Briones Referring Unavailable Camden Briones Attending Unavailable OLEG MORGAN-C, TYRONE Primary Care Provider Dr. Aaron Razo DO Referring Provider Sandra GUEVARA, Dr. Deal Attending Provider OLEG MORGAN-C, TYRONE Referring Provider Abbi MORGAN-CMartha Attending Provider Allergies Allergy Classification Reported Allergen(s) Allergy Type Date of Onset Reaction(s) Facility (2 sources) atorvastatin drug allergy 3 muscle aches [facility] Work Phone: (3 sources) NKA drug allergy 2 [facility] Work Phone: (2 sources) ezetimibe; Translations: [ezetimibe] Drug Allergy 4 Pounding heart (finding) [facility] (1 source) atorvastatin Drug Allergy 5 [facility] Repository Medications Current Medications Medication Drug Class(es) Dates Sig (Normalized) Sig (Original) acetaminophen 325 mg / oxyCODONE hydrochloride 5 mg oral tablet (17 sources) Opioid Agonist Start: 05-17-2025 Oxycodone-Acetamin ophen 5-325 mg tablet Active 1 {tbl} PO EVERY 6 HOURS May 17, 2025 12:00am Start: 09-24-2024 End: 11-22-2024 take 1 tablet by mouth every six hours acetaminophen-oxyCODONE 325 mg-5 mg oral tablet Dose = 1 tab(s), Oral, q6hr, # 120 tab(s), 0 Refill(s), Pharmacy: [facility] #[id number], Cervical disc disease Chronic neck and back pain, 167.5, cm, 10/21/24 7:55:00 EST, Height, 76.2, kg, 10/21/24 7:55:00 EST, Dosing Weight Start Date: 10/23/24 Stop Date: 11/22/24 Status: Ordered Start: 01-29-2024 End: 02-28-2024 take 1 tablet by mouth every six hours acetaminophen-oxyCODONE 325 mg-5 mg oral tablet Dose = 1 tab(s), Oral, q6hr, # 120 tab(s), 0 Refill(s), Pharmacy: [facility] #[id number], Cervical disc disease, 75.1, cm, 11/01/23 10:58:00 EST, Height, 75.1, kg, 11/01/23 10:58:00 EST, Dosing Weight Start Date: 01/29/24 Stop Date: 02/28/24 Status: Ordered Start: 08-28-2023 End: 09-12-2023 Oxycodone-Acetaminophen 5-32 5 mg tablet Discontinued 1 - 2 {tbl} PO EVERY 6 HOURS as needed for pain 14 3 August 28, 2023 September 12, 2023 2:36pm Postoperative pain Other acute postprocedural pain Start: 08-28-2023 take 1 tablet by varsha th every six hours Oxycodone-Acetaminophen Active 1 - 2 TABLET PO EVERY 6 HOURS 14 August 28, 2023 Start: 11-02-2022 End: 12-02-2022 take 1 tablet by mouth every six hours acetaminophen-oxyCODONE 325 mg-5 mg oral tablet Dose = 1 tab(s), Oral, q6hr, # 120 tab(s), 0 Refill(s), Pharmacy: [facility] #[id number], Cervical disc disease, 168, cm, 11/02/22 10:04:00 EST, Height, 77.5, kg, 11/02/22 10:04:00 EST, Dosing Weight Start Date: 11/02/22 Stop Date: 12/02/22 Status: Ordered Start: 11-01-2021 End: 12-01-2021 take 1 tablet by mouth every six hours acetaminophen-oxyCODONE 325 mg-5 mg oral tablet Dose = 1 tab(s), Oral, q6hr, # 100 tab(s), 0 Refill(s), Pharmacy: [facility], Cervical disc disease, 168, cm, 08/04/21 13:17:00 EDT, Height, 80.7, kg, 08/04/21 13:17:00 EDT, Dosing Weight Start Date: 11/01/21 Stop Date: 12/01/21 Status: Ordered cefTRIAXone 2000 mg injection (4 sources) Cephalosporin Antibacterial Start: 05-19-2025 Ceftriaxone 2 gram recon soln Active 2 g IV DAILY May 19, 2025 12:00am stop date 06/09/25. Dx: septic arthritis. Weekly bmp, cbc, esr, and vanc trough. Fax to [phone]. Routine picc care per protocol. cephalexin 500 mg oral capsule (8 sources) [...] q2wk, # 2 EA, 11 Refill(s), Pharmacy: [facility] #[id number], Hyperlipidemia, 167.5, cm, 08/14/24 13:01:00 EDT, Height, kg, 08/14/24 13:01:00 EDT, Dosing Weight Start Date: 08/14/24 Stop Date: 07/16/25 Status: Ordered ezetimibe 10 mg oral tablet (8 sources) Dietary Cholesterol Absorption Inhibitor Start: 05-17-2025 take 1 tablet by mouth once daily Ezetimibe 10 mg tablet Active 10 mg PO DAILY May 17, 2025 12:00am Start: 05-12-2011 End: 02-13-2012 take 1 tablet by mouth once daily ZETIA 10 MG TABS One tablet by mouth daily EZETIMIBE [id number] Giles Peters MD hydroCHLOROthiazide 12.5 mg oral capsule (3 sources) Thiazide Diuretic Start: 06-03-2025 take 1 capsule by mouth once daily Hydrochlorothiazide 12.5 mg capsule Active 12.5 mg PO daily June 03, 2025 12:00am Start: 03-10-2014 End: 03-31-2014 take 1 tablet by mouth once daily HYDROCHLOROTHIAZIDE 25 MG TABS One tablet by mouth daily HYDROCHLOROTHIAZIDE [id number] Paula Patterson RN hydroCHLOROthiazide 12.5 mg / lisinopril 10 mg [...] mg tablet Active 40 mg PO DAILY 90 December 13, 2021 10:15am Start: 05-12-2011 End: 03-09-2021 take 1 tablet by mouth once daily Lisinopril 20 mg tablet Discontinued 20 mg PO DAILY December 11, 2020 1:39pm March 09, 2021 3:00pm 24 hr metFORMIN hydrochloride 500 [...] BID, # 200 tab(s), 3 Refill(s), Pharmacy: [facility] #[id number], 167.5, cm, 05/01/24 11:04:00 EDT, Height, kg, 05/01/24 11:04:00 EDT, Dosing Weight Start Date: 05/01/24 Stop Date: 06/05/25 Status: Ordered nitroglycerin 0.4 mg sublingual spray (1 source) Start: 09-23-2008 nitroglycerin 0.4 mg sublingual spray 1 spray(s), SL, q5min, 15 g, 0, 0, as needed only Start Date: 09/23/08 Status: Ordered pantoprazole 40 mg delayed release oral tablet (7 sources) Proton Pump Inhibitor Start: 05-17-2025 take 1 tablet by mouth once daily Pantoprazole 40 mg tablet,delayed release (DR/EC) Active 40 mg PO DAILY May 17, 2025 12:00am Start: 09-10-2024 pantoprazole 4 0 mg oral enteric coated tablet Dose : 40 mg = 1 tab(s), Oral, qDay, # 90 tab(s), 3 Refill(s), Pharmacy: [facility] #[id number], Esophageal reflux disease, 167.5, cm, 08/14/24 13:01:00 EDT, Height, kg, 08/14/24 13:01:00 EDT, Dosing Weight Start Date: 09/10/24 Status: Ordered rosuvastatin calcium 40 mg oral tablet (16 sources) HMG-CoA Reductase Inhibitor Start: 06-05-2019 End: 12-05-2024 take 1 tablet by mouth once daily Rosuvastatin (Crestor) 40 mg tablet Active 40 mg PO DAILY June 05, 2019 12:00am CRESTOR 40 MG TA BS ROSUVASTATIN CALCIUM [id number] Marleni Zuñiga PA-C take 1 tablet by mouth once lauri y CRESTOR TABS One tablet by mouth daily ROSUVASTATIN CALCIUM TABS [id number] Tramaine Black vancomycin 1500 mg injection (4 sources) Glycopeptide Antibacterial Start: 05-19-2025 Vancomycin 1.5 gram recon soln Active 1.5 g IV Q12H 21 0 May 19, 2025 12:00am stop date 06/09/25. Dx: septic arthritis. Weekly bmp, cbc, esr, and vanc trough. Fax to [phone]. Routine picc care per protocol. Completed/Discontinued Medications Medication Drug Class(es) Dates Sig (Normalized) Sig (Original) acetaminophen 325 mg / HYDROcodone bitartrate 5 mg oral tablet (15 sources) Opioid Agonist Start: 05-17-2025 End: 06-02-2025 Hydrocodone-Acetami nophen 5-325 mg tablet Discontinued 1 {tbl} PO EVERY 6 HOURS NEEDED as needed for Pain 10 3 0 May 17, 2025 June 02, 2025 2:01pm Pseudogout of left knee Degeneration of intervertebral disc of lumbar region Other chondrocalcinosis, left knee Start: 09-11-2013 End: 01-27-2014 HYDROCODONE-ACETAMINOPHEN 5- 500 MG TABS as needed HYDROCODONE-ACETAMINOPHEN [id number] Tramaine Black Start: 09-11-2013 HYDROCODONE-AC ETAMINOPHEN 5-500 MG TABS as needed HYDROCODONE-ACETAMINOPHEN [id number] Giles Peters MD take 1 tablet by [...] # 2 mL, 11 Refill(s), Pharmacy: [facility], 168, cm, 08/04/21 13:17:00 EDT, Height, kg, 08/04/21 13:17:00 EDT, Dosing Weight Start Date: 08/04/21 Status: Ordered amLODIPine 10 mg oral tablet (10 sources) Dihydropyridine Calcium Channel Antonio Start: 05-01-2024 End: 06-05-2025 take 1 tablet by mouth once daily Amlodipine 10 mg tablet Discontinued 10 mg PO DAILY May 17, 2025 12:00am May 17, 2025 9:47am Start: 11-02-2022 amLODIPine 10 mg oral tablet Dose : 10 mg = 1 tab(s), Oral, qDay, # 90 tab(s), 3 Refill(s), Pharmacy: [facility] #[id number], 168, cm, 11/02/22 10:04:00 EST, Height, kg, 11/02/22 10:04:00 EST, Dosing Weight Start Date: 11/02/22 Status: Ordered Start: 11-03-2021 amLODIPine 10 mg oral tablet Dose : 10 mg = 1 tab(s), Oral, qDay, # 90 tab(s), 3 Refill(s), Pharmacy: [facility], 168, cm, 11/03/21 11:40:00 EST, Height, kg, 11/03/21 11:40:00 EST, Dosing Weight Start Date: 11/03/21 Status: Ordered aspirin 81 mg delayed release oral tablet (20 sources) Nonsteroidal Anti-inflammatory Drug Start: 08-17-2023 End: 06-03-2025 take 1 tablet by mouth once daily Aspirin (Adult Aspirin Regimen) 81 mg tablet,delayed release (DR/EC) Discontinued 81 mg PO DAILY August 17, 2023 12:00am June 03, 2025 10:53am Start: 02-04-2014 End: 04-28-2023 take 1 tablet by mouth once daily Aspirin 325 MG tablet Discontinued 325 mg PO DAILY@0800 February 04, 2014 12:00am April 28, 2023 1:02pm Start: 05-12-2011 take 1 tablet by varsha th once daily ASPIRIN 325 MG TABS One tablet by mouth daily ASPIRIN [id number] Giles Peters MD Start: 09-23-2008 take 1 dose by mouth once lauri y aspirin Dose : 81 mg =, PO, Daily, 0 Refill(s), current med (Hx) Start Date: 09/23/08 Status: Ordered Start: 09-23-2008 aspirin 81 mg, PO, Daily, 0, 0 Start Date: 09/23/08 Status: Ordered atorvastatin 40 mg oral tablet (12 sources) HMG-CoA Reductase Inhibitor Start: 09-15-2014 End: 11-29-2017 take 1 tablet by mouth once daily Atorvastatin 40 MG tablet Discontinued 40 mg PO DAILY May 12, 2016 12:00am November 29, 2017 8:55am Start: 03-25-2013 End: 04-04-2013 take 1 tablet by mouth once daily ATORVASTATIN CALCIUM 80 MG TABS One tablet by mouth daily ATORVASTATIN CALCIUM [id number] Giles Peters MD baclofen 10 mg oral tablet (11 sources) gamma-Aminobutyric Acid-ergic Agonist Start: 11-02-2022 End: [...] 1/2 tablet by mouth twice daily CARVEDILOL [id number] Giles Peters MD Start: 05-12-2011 End: 09-11-2013 take 1 tablet by mouth twice daily CARVEDILOL 25 MG TABS One tablet by mouth twice daily CARVEDILOL [id number] Giles Peters MD clopidogrel 75 mg oral tablet (20 sources) [id number] Platelet Inhibitor Start: 09-23-2008 End: 05-22-2024 take 1 tablet by mouth once daily Clopidogrel 75 mg tablet Discontinued 75 mg PO DAILY 90 November 28, 2023 1:38pm May 22, 2024 10:54am Start: 09-23-2008 Plavix 75 mg, PO, Daily, 0, 0 Start Date: 09/23/08 Status: Ordered fenofibrate 160 mg oral tablet (20 sources) Peroxisome Proliferator Receptor alpha Agonist Start: 09-11-2013 End: 06-05-2025 take 1 tablet by mouth once daily Fenofibrate 160 mg tablet Discontinued 160 mg PO DAILY 30 March 28, 2018 9:00am December 17, 2018 4:03pm meloxicam 7.5 mg oral tablet (2 sources) Nonsteroidal Anti-inflammatory Drug Start: 03-18-2013 End: 09-11-2013 take 1 tablet by mouth once daily MOBIC 7.5 MG TABS One tablet by mouth daily MELOXICAM [id number] Spring Macedo RN nitroglycerin 0.4 mg sublingual tablet (20 sources) Nitrate Vasodilator Start: 03-10-2014 End: 05-17-2025 Nitroglycerin 0.4 mg tablet, sublingual Discontinued 0.4 mg SL Q5M as needed for Chest Pain 18 02March 28, 2018 9:00am December 17, 2018 4:03pm Start: 05-12-2011 NITROGLYCERIN 0.4 MG/HR PT24 1 tablet under tongue every 5 min up to 3 X NITROGLYCERIN [id number] Giles Peters MD Start: 09-23-2008 nitroglycerin 0.4 [...] # 2 mL, 11 Refill(s), Pharmacy: [id number], 168, cm, 08/04/21 13:17:00 EDT, Height, kg, 08/04/21 13:17:00 EDT, Dosing Weight Start Date: 08/04/21 Status: Ordered pravastatin sodium 80 mg oral tablet (1 source) HMG-CoA Reductase Inhibitor take 1 tablet by mouth once daily PRAVASTATIN SODIUM 80 MG TABS One tablet by mouth daily PRAVASTATIN SODIUM [id number] Giles Peters MD simvastatin 80 mg oral tablet (1 source) HMG-CoA Reductase Inhibitor Start: 05-12-2011 take 1 tablet by mouth at bedtime SIMVASTATIN 80 MG TABS One tablet by mouth at bedtime. SIMVASTATIN [id number] Elmira Casas Problems Active Problems Problem Classification [...] Chronic Coronary atherosclerosis and other heart disease (16 sources) Coronary arteriosclerosis; Translations: [Atherosclerotic heart disease of [place] coronary artery without angina pectoris] Onset: 1 05-12-2011 Chronic Diabetes mellitus without complication (6 sources) Diabetes mellitus; Translations: [Type 2 diabetes mellitus without complication] 05-19-2020 Chronic Diseases of white blood cells (10 sources) Leukocytosis; Translations: [Elevated white blood cell count, unspecified] Onset: 4 06-18-2024 Chronic Disorders of lipid metabolism (18 sources) Hyperlipidemia; Translations: [Mixed hyperlipidemia] Onset: 1 05-12-2011 Chronic Esophageal disorders (2 sources) Gastroesophageal reflux disease 08-14-2024 Chronic Esophageal disorders (1 source) Achalasia of cardia; Translations: [Achalasia of cardia] Onset: 5 Episodic Essential hypertension (18 sources) Hypertensive disorder; Translations: [Essential hypertension] Onset: 1 05-12-2011 Chronic Gout and other crystal arthropathies (15 sources) Chondrocalcinosis of joint of left knee; Translations: [Other chondrocalcinosis, left knee] Onset: 5 05-17-2025 Chronic Infective arthritis and osteomyelitis (except that caused by tuberculosis or sexually transmitted disease) (14 sources) Knee pyogenic arthritis; Translations: [Pyogenic arthritis, unspecified] Onset: 5 05-17-2025 Episodic Miscellaneous mental health disorders (2 sources) Primary insomnia 05-01-2024 Chronic Nonspecific chest pain (10 sources) Chest pain, unspecified; Translations: [Chest pain] Onset: 1 05-12-2011 Episodic Other aftercare (9 sources) H/O: high risk medication; Translations: [Other anaesthesiologist (current) drug therapy] 11-29-2017 Episodic Other gastrointestinal disorders (5 sources) Oropharyngeal dysphagia 02-03-2021 Episodic Other gastrointestinal disorders (2 sources) Dysphagia; Translations: [Dysphagia, unspecified] 11-12-2024 Episodic Other lower respiratory disease (10 sources) Dyspnea; Translations: [Dyspnea, unspecified] Onset: 1 05-12-2011 Episodic Other lower respiratory disease (2 sources) Cough 02-03-2021 Episodic Other lower respiratory disease (2 sources) Other nonspecific abnormal finding of lung field; Translations: [Other nonspecific abnormal finding of lung field] Onset: 5 Episodic Other lower respiratory disease (2 sources) Multiple nodules of lung; Translations: [Other nonspecific abnormal finding of lung field] 06-03-2025 Episodic Comment on above: new RLL 1.5 cm & sta ble 4 mm,increasing RML 8 mm Other non-traumatic joint disorders (4 sources) Hip pain 11-02-2022 Episodic Other screening for suspected conditions (not mental disorders or infectious disease) (1 source) Encounter for screening for malignant neoplasm of prostate; Translations: [Screening for malignant neoplasm done] Episodic Peripheral and visceral atherosclerosis (5 sources) Abdominal aortic atherosclerosis; Translations: [Atherosclerosis of aorta] 05-17-2025 Chronic Residual codes; unclassified (5 sources) Chronic pain 05-19-2020 Episodic Screening or history of mental health and substance abuse (1 source) Tobacco dependence syndrome; Translations: [Nicotine dependence, unspecified, uncomplicated] Onset: 1 05-12-2011 Chronic Spondylosis; intervertebral disc disorders; other back problems (15 sources) Cervical disc disorder; Translations: [Degeneration of lumbar intervertebral disc] 02-18-2020 Chronic Spondylosis; intervertebral disc disorders; other back problems (9 sources) Spasm of back muscles; Translations: [Acute low back pain] 11-02-2022 Episodic Substance-related disorders (17 sources) Nicotine dependence; Translations: [Nicotine dependence, unspecified, uncomplicated] 02-05-2020 Chronic Syncope (10 sources) Syncope and collapse; Translations: [Syncope and collapse] Onset: 1 05-12-2011 Episodic Unclassified (5 sources) Patient encounter status 11-11-2019 Unclassified (1 source) Other intervertebral disc degeneration, lumbar region without mention of lumbar back pain or lower extremity pain; Translations: [Other intervertebral disc degeneration, lumbar region without mention of lumbar back pain or lower extremity pain] Onset: 5 Unclassified (2 sources) Pyogenic arthritis of left knee joint Unclassified (4 sources) M00.9 - Pyogenic arthritis, unspecified Past or Other Problems Problem Classification Problem Date Documented Da te Episodic/Chronic Abdominal pain (1 source) Right upper quadrant pain; Translations: [Right upper quadrant pain] Onset: 02-13-2012 02-13-2012 Episodic Biliary tract disease (1 source) Chronic cholecystitis; Translations: [Chronic cholecystitis] Onset: 03-28-2012 03-28-2012 Episodic Coronary atherosclerosis and other heart disease (12 sources) Coronary angioplasty status; Translations: [Stented coronary artery] Onset: 11-27-2007 05-12-2011 Episodic Comment on above: PTCA/OSCAR of the mid CFX 09/05; PTCA/OSCAR to prox LAD & CFX and PTCA to OM2 01/01; overlapping BMS to mid CFX 09/03 Malaise and fatigue (1 source) Fatigue; Translations: [Other fatigue] Onset: 05-12-2011 05-12-2011 Episodic Other aftercare (1 source) Other anaesthesiologist (current) drug therapy; Translations: [Other penitentiary (current) drug therapy] Onset: 05-12-2011 05-12-2011 Episodic [...] Resolved: 10-05-2015 03-17-2015 Episodic Residual codes; unclassified (6 sources) History of hernia repair; Translations: [Other specified postprocedural states] Onset: 11-27-2022 09-13-2023 Episodic Unclassified (1 source) FH: Hypertension; Translations: [Family history of ischemic heart disease and other diseases of the circulatory system] 09-15-2014 Episodic Results Test Name Value Interpretation Reference Range Facility Anion gap in Serum or Plasma Ordered By: Camden Flores on 05-27-2025 Anion gap [Moles/Vol] 12 mmol/L 04-10 [facility] BUN/creatinine ratioOrdered By: Camden Flores on 05-27-2025 Urea nitrogen/Creatinine [Mass ratio] 20.5 mg/mg High [facility] Basic Metabolic Profile (BMP )on 05-27-2025 BUN/CRE 20.5 RATIO High [facility] Comment on above: Performed By: #### L 100.0500, L500.2500, L501.8820, L101.9900 #### [facility] [address] [place], [place], [id number] Calcium [Mass/Vol] 9.9 mg/dL Normal 7.6-11.0 [facility] Comment on above: Performed By: #### L 100.0500, L500.2500, L501.8820, L101.9900 #### [facility] [address] [place], [address] Chloride [Moles/Vol] 101 mmol/L Normal 98-108 [facility] Comment on above: Performed By: #### L 100.0500, L500.2500, L501.8820, L101.9900 #### [facility] [address] [place], [address] CO2 [Moles/Vol] 21.6 mmol/L Normal 21.0-32.0 [facility] Comment on above: Performed By: #### L 100.0500, L500.2500, L501.8820, L101.9900 #### [facility] [address] [place], [address] Creatinine [Mass/Vol] 0.78 mg/dL Normal 0.70-1.20 [facility] Comment on above: Performed By: #### L 100.0500, L500.2500, L501.8820, L101.9900 #### [facility] [address] [place], [address] GAP 12 Normal 5-15 [facility] Comment on above: Performed By: #### L 100.0500, L500.2500, L501.8820, L101.9900 #### [facility] [address] [place], [address] GFR/1.73 sq M.predicted among non-blacks MDRD (S/P/Bld) [Vol rate/Area] 97 mL/min/{1.73_m2} Normal >60 [facility] Comment on above: Result Comment: mL/m in/1.73m2 CKD-EPI Creatinine Equation (2020) Performed By: #### L 100.0500, L500.2500, L501.8820, L101.9900 #### [facility] [address] [place], [address] Glucose [Mass/Vol] 111 mg/dL High 70-99 [facility] Comment on above: Performed By: #### L 100.0500, L500.2500, L501.8820, L101.9900 #### [facility] [address] [place], [address] Potassium [Moles/Vol] 4.2 mmol/L Normal 3.3-5.1 [facility] Comment on above: Performed By: #### L 100.0500, L500.2500, L501.8820, L101.9900 #### [facility] [address] [place], [address] Sodium [Moles/Vol] 135 mmol/L Normal 133-145 [facility] Comment on above: Performed By: #### L 100.0500, L500.2500, L501.8820, L101.9900 #### [facility] [address] [place], [address] Urea nitrogen [Mass/Vol] 16 mg/dL Normal 4-19 [facility] Comment on above: Performed By: #### L 100.0500, L500.2500, L501.8820, L101.9900 #### [facility] [address] [place], [address] CBC-Complete Blood Cnt No Di ffon 05-27-2025 Erythrocyte distribution width (RBC) [Ratio] 14.3 % Normal 11.6-14.6 [facility] Comment on above: Performed By: #### L 100.0500, L500.2500, L501.8820, L101.9900 #### [facility] [address] [place], [address] Hematocrit (Bld) [Volume fraction] 42.0 % Normal 40-54 [facility] [facility] Comment on above: Performed By: #### L 100.0500, L500.2500, L501.8820, L101.9900 #### [facility] [address] [place], [address] Hemoglobin (Bld) [Mass/Vol] 13.9 g/dL Normal 13.0-16.5 [facility] Comment on above: Performed By: #### L 100.0500, L500.2500, L501.8820, L101.9900 #### [facility] [address] [place], [address] MCH (RBC) [Entitic mass] 28.5 pg Normal 27.0-32.0 [facility] Comment on above: Performed By: #### L 100.0500, L500.2500, L501.8820, L101.9900 #### [facility] [address] [place], [address] MCHC (RBC) [Mass/Vol] 33.1 g/dL Normal 32-36 [facility] Comment on above: Performed By: #### L 100.0500, L500.2500, L501.8820, L101.9900 #### [facility] [address] [place], [address] MCV (RBC) [Entitic vol] 86.2 fL Normal 80-94 [facility] Comment on above: Performed By: #### L 100.0500, L500.2500, L501.8820, L101.9900 #### [facility] [address] [place], [address] Platelet mean volume (Bld) [Entitic vol] 9.3 fL Normal 6.2-12.0 [facility] Comment on above: Performed By: #### L 100.0500, L500.2500, L501.8820, L101.9900 #### [facility] [address] [place], [address] Platelets (Bld) [#/Vol] 409 10*3/uL Normal 150-450 [facility] Comment on above: Performed By: #### L 100.0500, L500.2500, L501.8820, L101.9900 #### [facility] [address] [place], [address] RBC (Bld) [#/Vol] 4.87 10*6/uL Normal 4.6-6.2 [facility] Comment on above: Performed By: #### L 100.0500, L500.2500, L501.8820, L101.9900 #### [facility] [address] [place], [address] RDW SD 45.1 fl High 35.1-43.9 [facility] Comment on above: Performed By: #### L 100.0500, L500.2500, L501.8820, L101.9900 #### [facility] [address] [place], [address] WBC (Bld) [#/Vol] 20.2 10*3/uL High 4.4-11.0 [facility] Comment on above: Performed By: #### L 100.0500, L500.2500, L501.8820, L101.9900 #### [facility] [address] [place], [address] Carbon dioxide, total [Moles /volume] in Central venous bloodOrdered By: Camden Flores on 05-27-2025 CO2 [Moles/Vol] 21.6 mmol/L 21.0-32.0 [facility] Chloride assayOrdered By: Litzy Flroes on 05-27-2025 Chloride [Moles/Vol] 101 mmol/L 98-108 [facility] Erythrocyte Sed Rateon 05-27 SED RATE 36 mm/hr High 0-20 [facility] Comment on above: Performed By: #### L 100.0500, L500.2500, L501.8820, L101.9900 #### [facility] [address] [place], [address] Erythrocyte distribution wid th ratioOrdered By: Camden Flores on 05-27-2025 Erythrocyte distribution width (RBC) [Ratio] 14.3 % 11.6-14.6 [facility] Erythrocyte distribution wid th standard deviationOrdered By: Camden Flores on 05-27-2025 Erythrocyte distribution width (RBC) [Ratio] 45.1 fl High 35.1-43.9 [facility] Erythrocyte sedimentation ra teOrdered By: Camden Flores on 05-27-2025 ESR (Bld) [Velocity] 36 mm/h High 0-20 [facility] Glomerular filtration rate ( GFR) estimation/1.73 sq m using serum, plasma, or whole bOrdered By: Camden Flores on 05-27-2025 GFR/1.73 sq M.predicted among non-blacks MDRD (S/P/Bld) [Vol rate/Area] 97 mL/min/{1.73_m2} >60 [facility] Comment on above: mL/min/1.73m2 CKD-EP I Creatinine Equation (2020) Hematocrit Auto (Bld) [Volum e fraction]Ordered By: Camden Flores on 05-27-2025 Hematocrit (Bld) [Volume fraction] 42.0 % 40-54 [facility] Hemoglobin measurementOrdere d By: Camden Flores on 05-27-2025 Hemoglobin (Bld) [Mass/Vol] 13.9 g/dL 13.0-16.5 [facility] MCV (mean corpuscular volume ) determinationOrdered By: Camden Flores on 05-27-2025 MCV (RBC) [Entitic vol] 86.2 fL 80-94 [facility] Mean corpuscular hemoglobin (MCH) determinationOrdered By: Camden Flores on 05-27-2025 MCH (RBC) [Entitic mass] 28.5 pg 27.0-32.0 [facility] Mean corpuscular hemoglobin concentration (MCHC) determinationOrdered By: Camden Flores on 05-27-2025 MCHC (RBC) [Mass/Vol] 33.1 g/dL 32-36 [facility] Mean platelet volume determi nationOrdered By: Camden Flores on 05-27-2025 Platelet mean volume (Bld) [Entitic vol] 9.3 fL 6.2-12.0 [facility] Platelet countOrdered By: Litzy Flores on 05-27-2025 Platelets (Bld) [#/Vol] 409 10*3/uL 150-450 [facility] Potassium measurement (mass/ volume)Ordered By: Camden Flores on 05-27-2025 Potassium (Unsp spec) [Mass/Vol] 4.2 mmol/L 3.3-5.1 [facility] RBC Auto (Bld) [#/Vol]Ordere d By: Camden Flores on 05-27-2025 RBC (Bld) [#/Vol] 4.87 10*6/uL 4.6-6.2 [facility] Serum creatinine measurement (mass/volume)Ordered By: Camden Flores on 05-27-2025 Creatinine [Mass/Vol] 0.78 mg/dL 0.70-1.20 [facility] Serum glucose measurement (m ass/volume)Ordered By: Camden Flores on 05-27-2025 Glucose [Mass/Vol] 111 mg/dL High 70-99 [facility] Serum or plasma calcium ricky urement (mass/volume)Ordered By: Camden Flores on 05-27-2025 Calcium [Mass/Vol] 9.9 mg/dL 7.6-11.0 [facility] Serum or plasma urea nitroge n measurement (mass/volume)Ordered By: Camden Flores on 05-27-2025 Urea nitrogen [Mass/Vol] 16 mg/dL 4-19 [facility] Sodium levelOrdered By: Willian Flores on 05-27-2025 Sodium [Moles/Vol] 135 mmol/L 133-145 [facility] Trough vancomycin levelOrder ed By: Camden Flores on 05-27-2025 Vancomycin trough [Mass/Vol] 21.9 ug/mL High 5.0-15.0 [facility] Comment on above: Recommended goal tro ugh ranges are generally 10-15 mcg/ml for less severe/complicated infections such as cellulitis or UTI and 15-20 mcg/ml for more severe/complicated infections such as bacteremia/sepsis, osteomyelitis, pneumonia or meningitis. Goal trough ranges should take into account indication, patient-specific factors and organism CINTHIA.VANCOMYCIN STANDARED DRUG THERAPY TROUGH LEVEL: 5.0 - 15.0 mg/L VANCOMYCIN HIGH INTENSITY THERAPY TROUGH LEVEL: 15.0 - 20.0 mg/L High Intensity therapy recommended for serious lifethreatening infections include:- Ybmidgyxng-Nyszlgzcheug-Gneuzqlia (Ventilator/Healtcare Associated)-Sepsis PLEASE CONTACT PHARMACY SERVICES (#[id number]) FOR INTERPRETATIONOF RESULTS. Vancomycin, Trough Levelon 0 05-27-2025 VANCO, TROUGH 21.9 ug/mL High 5.0-15.0 [facility] Comment on above: Order Comment: 1200 Result Comment: Celso mmended goal trough ranges are generally 10-15 mcg/ml for less severe/complicated infections such as cellulitis or UTI and 15-20 mcg/ml for more severe/complicated infections such as bacteremia/sepsis, osteomyelitis, pneumonia or meningitis. Goal trough ranges should take into account indication, patient-specific factors and organism CINTHIA. VANCOMYCIN STANDARED DRUG THERAPY TROUGH LEVEL: 5.0 - 15.0 mg/L VANCOMYCIN HIGH INTENSITY THERAPY TROUGH LEVEL: 15.0 - 20.0 mg/L High Intensity therapy recommended for serious life threatening infections include: - Meningitis -Endocarditis -Pneumonia (Ventilator/Healtcare Associated) -Sepsis PLEASE CONTACT PHARMACY SERVICES (#[id number]) FOR INTERPRETATION OF RESULTS. Performed By: #### L 100.0500, L500.2500, L501.8820, L101.9900 #### [facility] [address] [place], [address] White blood cell (WBC) count Ordered By: Camden Flores on 05-27-2025 WBC (Bld) [#/Vol] 20.2 10*3/uL High 4.4-11.0 [facility] Body Fluid Culton 05-21-2025 BFC RESULTS CALLED TO Carmella MCQUEEN 05/17/25 1330 Renata Mathis. REPORT READ BACK BY . Lt Knee Culture exhibits no growth. Normal [facility] Comment on above: Performed By: #### L 501.080 #### [facility] [address] [place], [place], [id number] Basic Metabolic Profile (BMP )on 05-20-2025 BUN Normal 4-19 [facility] Comment on above: Result Comment: Canc elled via OM: Order cancelled - Patient discharged Performed By: #### L 100.0100, L500.2500 #### [facility] [address] [place], [address] BUN/CRE Normal 10-20 [facility] Comment on above: Result Comment: Canc elled via OM: Order cancelled - Patient discharged Performed By: #### L 100.0100, L500.2500 #### [facility] [address] [place], [address] Calcium Normal 7.6-11.0 [facility] Comment on above: Result Comment: Canc elled via OM: Order cancelled - Patient discharged Performed By: #### L 100.0100, L500.2500 #### [facility] [address] [place], [address] CL Normal 98-108 [facility] Comment on above: Result Comment: Canc elled via OM: Order cancelled - Patient discharged Performed By: #### L 100.0100, L500.2500 #### [facility] [address] [place], [address] CO2 Normal 21.0-32.0 [facility] Comment on above: Result Comment: Canc elled via OM: Order cancelled - Patient discharged Performed By: #### L 100.0100, L500.2500 #### [facility] [address] [place], [address] CREAT,SERUM Normal 0.70-1.20 [facility] Comment on above: Result Comment: Canc elled via OM: Order cancelled - Patient discharged Performed By: #### L 100.0100, L500.2500 #### [facility] [address] [place], [address] eGFR Normal >60 [facility] Comment on above: Result Comment: Canc elled via OM: Order cancelled - Patient discharged Performed By: #### L 100.0100, L500.2500 #### [facility] [address] [place], [address] GAP Normal 5-15 [facility] Comment on above: Result Comment: Canc elled via OM: Order cancelled - Patient discharged Performed By: #### L 100.0100, L500.2500 #### [facility] [address] [place], [address] GLU Normal 70-99 [facility] Comment on above: Result Comment: Canc elled via OM: Order cancelled - Patient discharged Performed By: #### L 100.0100, L500.2500 #### [facility] [address] [place], [address] Potassium Normal 3.3-5.1 [facility] Comment on above: Result Comment: Canc elled via OM: Order cancelled - Patient discharged Performed By: #### L 100.0100, L500.2500 #### [facility] [address] [place], [address] Basic Metabolic Profile (BMP) Normal 133-145 [facility] Comment on above: Result Comment: Canc elled via OM: Order cancelled - Patient discharged Performed By: #### L 100.0100, L500.2500 #### [facility] [address] [place], [address] CBC W/Diff, Automatedon 06-2 Absolute Neut Normal 2.0-7.7 [facility] Comment on above: Result Comment: Canc elled via OM: Order cancelled - Patient discharged Performed By: #### L 100.0100, L500.2500 #### [facility] [address] [place], [address] HCT Normal 40-54 [facility] Comment on above: Result Comment: Canc elled via OM: Order cancelled - Patient discharged Performed By: #### L 100.0100, L500.2500 #### [facility] [address] [place], [address] HGB Normal 13.0-16.5 [facility] Comment on above: Result Comment: Canc elled via OM: Order cancelled - Patient discharged Performed By: #### L 100.0100, L500.2500 #### [facility] [address] [place], [address] MCH Normal 27.0-32.0 [facility] Comment on above: Result Comment: Canc elled via OM: Order cancelled - Patient discharged Performed By: #### L 100.0100, L500.2500 #### [facility] [address] [place], [address] MCHC Normal 32-36 [facility] Comment on above: Result Comment: Canc elled via OM: Order cancelled - Patient discharged Performed By: #### L 100.0100, L500.2500 #### [facility] [address] [place], [address] MCV Normal 80-94 [facility] Comment on above: Result Comment: Canc elled via OM: Order cancelled - Patient discharged Performed By: #### L 100.0100, L500.2500 #### [facility] [address] [place], [address] NEUT% Normal 47-70 [facility] Comment on above: Result Comment: Canc elled via OM: Order cancelled - Patient discharged Performed By: #### L 100.0100, L500.2500 #### [facility] [address] [place], [address] PLT Normal 150-450 [facility] Comment on above: Result Comment: Canc elled via OM: Order cancelled - Patient discharged Performed By: #### L 100.0100, L500.2500 #### [facility] [address] [place], [address] RBC Normal 4.6-6.2 [facility] Comment on above: Result Comment: Canc elled via OM: Order cancelled - Patient discharged Performed By: #### L 100.0100, L500.2500 #### [facility] [address] [place], [address] RDW CV Normal 11.6-14.6 [facility] Comment on above: Result Comment: Canc elled via OM: Order cancelled - Patient discharged Performed By: #### L 100.0100, L500.2500 #### [facility] [address] [place], [address] RDW SD Normal 35.1-43.9 [facility] Comment on above: Result Comment: Canc elled via OM: Order cancelled - Patient discharged Performed By: #### L 100.0100, L500.2500 #### [facility] [address] [place], [address] WBC Normal 4.4-11.0 [facility] Comment on above: Result Comment: Canc elled via OM: Order cancelled - Patient discharged Performed By: #### L 100.0100, L500.2500 #### [facility] [address] [place], [address] Synovial Fluid RBC, WBC AND Diffon 05-20-2025 PATH COM/SYFL May follow Normal [facility] Comment on above: Order Comment: Comme nts: Lt KneeComments: Rt Ankle Result Comment: AMENDED REPORT 05/19/25 1331 PATH COM/SYFL previously reported as: May follow Performed By: #### L 501.080 #### [facility] [address] [place], [address] Absolute lymphocyte countOrd ered By: Aaron Razo on 05-19-2025 Lymphocytes Auto (Unsp spec) [#/Vol] 4.97 10*3/uL High 0.83-4.51 [facility] Absolute neutrophil countOrd ered By: Aaron Razo on 05-19-2025 Neutrophils (Bld) [#/Vol] 8.7 10*3/uL High 2.0-7.7 [facility] Anion gap in Serum or Plasma Ordered By: Aaron Razo on 05-19-2025 Anion gap [Moles/Vol] 12 mmol/L 04-10 [facility] Automated lymphocyte count a s percentage of total leukocytesOrdered By: Aaron Razo on 05-19-2025 Lymphocytes/100 WBC Auto (Unsp spec) 33.1 % [facility] BUN/creatinine ratioOrdered By: Aaron Razo on 05-19-2025 Urea nitrogen/Creatinine [Mass ratio] 19.7 mg/mg 09-15 [facility] Basic Metabolic Profile (BMP )on 05-19-2025 BUN/CRE 19.7 RATIO Normal - [facility] Comment on above: Performed By: #### L 100.0100, L500.2500 #### [facility] [address] [place], [address] Calcium [Mass/Vol] 9.1 mg/dL Normal 7.6-11.0 [facility] Comment on above: Performed By: #### L 100.0100, L500.2500 #### [facility] [address] [place], [address] Chloride [Moles/Vol] 105 mmol/L Normal 98-108 [facility] Comment on above: Performed By: #### L 100.0100, L500.2500 #### [facility] [address] [place], [address] CO2 [Moles/Vol] 21.0 mmol/L Normal 21.0-32.0 [facility] Comment on above: Performed By: #### L 100.0100, L500.2500 #### [facility] [address] [place], [address] Creatinine [Mass/Vol] 0.77 mg/dL Normal 0.70-1.20 [facility] Comment on above: Performed By: #### L 100.0100, L500.2500 #### [facility] [address] [place], [address] ECRCL 87.05 ml/min Normal 50-250 [facility] Comment on above: Performed By: #### L 100.0100, L500.2500 #### [facility] [address] [place], [address] GAP 12 Normal 5-15 [facility] Comment on above: Performed By: #### L 100.0100, L500.2500 #### [facility] [address] [place], [address] GFR/1.73 sq M.predicted among non-blacks MDRD (S/P/Bld) [Vol rate/Area] 98 mL/min/{1.73_m2} Normal >60 [facility] Comment on above: Result Comment: mL/m in/1.73m2 CKD-EPI Creatinine Equation (2020) Performed By: #### L 100.0100, L500.2500 #### [facility] [address] [place], [address] Glucose [Mass/Vol] 130 mg/dL High 70-99 [facility] Comment on above: Performed By: #### L 100.0100, L500.2500 #### [facility] [address] [place], [address] Potassium [Moles/Vol] 4.1 mmol/L Normal 3.3-5.1 [facility] Comment on above: Performed By: #### L 100.0100, L500.2500 #### [facility] [address] [place], [address] Sodium [Moles/Vol] 138 mmol/L Normal 133-145 [facility] Comment on above: Performed By: #### L 100.0100, L500.2500 #### [facility] [address] [place], [address] Urea nitrogen [Mass/Vol] 15 mg/dL Normal 4-19 [facility] Comment on above: Performed By: #### L 100.0100, L500.2500 #### [facility] [address] [place], [address] Basophil percentageOrdered B y: Aaron Razo on 05-19-2025 Basophils/100 WBC (Bld) 0.3 % 0-1 [facility] Bedside Glucoseon 05-19-2025 FINGERSTICK GLU 138 mg/dL High 74-106 [facility] Comment on above: Result Comment: BRIGETTE GEMENT OF PATIENT CARE PER NURSING PROTOCOL Performed By: #### L 501.080 #### [facility] [address] [place], [address] FINGERSTICK GLU 136 mg/dL High 74-106 [facility] Comment on above: Result Comment: BRIGETTE GEMENT OF PATIENT CARE PER NURSING PROTOCOL Performed By: #### L 501.080 #### [facility] [address] [place], [address] CBC W/Diff, Automatedon 04-28 Absolute Lymph 4.97 X10 3/uL High 0.83-4.51 [facility] Comment on above: Performed By: #### L 100.0100, L500.2500 #### [facility] [address] [place], [address] Absolute Neut 8.7 X10 3/uL High 2.0-7.7 [facility] Comment on above: Performed By: #### L 100.0100, L500.2500 #### [facility] [address] [place], [address] Basophils/100 WBC (Bld) 0.3 % Normal 0-1 [facility] Comment on above: Performed By: #### L 100.0100, L500.2500 #### [facility] [address] [place], [address] Eosinophils/100 WBC (Bld) 0.2 % Normal 0-5 [facility] Comment on above: Performed By: #### L 100.0100, L500.2500 #### [facility] [address] [place], [address] Erythrocyte distribution width (RBC) [Ratio] 14.3 % Normal 11.6-14.6 [facility] Comment on above: Performed By: #### L 100.0100, L500.2500 #### [facility] [address] [place], [address] Hematocrit (Bld) [Volume fraction] 40.5 % Normal 40-54 [facility] Comment on above: Performed By: #### L 100.0100, L500.2500 #### [facility] [address] [place], [address] Hemoglobin (Bld) [Mass/Vol] 13.4 g/dL Normal 13.0-16.5 [facility] Comment on above: Performed By: #### L 100.0100, L500.2500 #### [facility] [address] [place], [address] IG% 0.300 Normal 0.0-0.9 [facility] Comment on above: Result Comment: IG% - Immature Granulocytes (promyelocytes, myelocytes and metamyelocytes) > 1% indicates that a LEFT SHIFT is Present. Performed By: #### L 100.0100, L500.2500 #### [facility] [address] [place], [address] Lymphocytes/100 WBC (Bld) 33.1 % Normal 19-41 [facility] Comment on above: Performed By: #### L 100.0100, L500.2500 #### [facility] [address] [place], [address] MCH (RBC) [Entitic mass] 28.5 pg Normal 27.0-32.0 [facility] Comment on above: Performed By: #### L 100.0100, L500.2500 #### [facility] [address] [place], [address] MCHC (RBC) [Mass/Vol] 33.1 g/dL Normal 32-36 [facility] Comment on above: Performed By: #### L 100.0100, L500.2500 #### [facility] [address] [place], [address] MCV (RBC) [Entitic vol] 86.2 fL Normal 80-94 [facility] Comment on above: Performed By: #### L 100.0100, L500.2500 #### [facility] [address] [place], [address] Monocytes/100 WBC (Bld) 8.4 % Normal 0-10 [facility] Comment on above: Performed By: #### L 100.0100, L500.2500 #### [facility] [address] [place], [address] Neutrophils/100 WBC (Bld) 57.7 % Normal 47-70 [facility] Comment on above: Performed By: #### L 100.0100, L500.2500 #### [facility] [address] [place], [address] Nucleated RBC (Bld) [#/Vol] 0 10*3/uL Normal 0-5 [facility] Comment on above: Performed By: #### L 100.0100, L500.2500 #### [facility] [address] [place], [address] Platelet mean volume (Bld) [Entitic vol] 9.5 fL Normal 6.2-12.0 [facility] Comment on above: Performed By: #### L 100.0100, L500.2500 #### [facility] [address] [place], [address] Platelets (Bld) [#/Vol] 305 10*3/uL Normal 150-450 [facility] Comment on above: Performed By: #### L 100.0100, L500.2500 #### [facility] [facility] [address] [place], [address] RBC (Bld) [#/Vol] 4.70 10*6/uL Normal 4.6-6.2 [facility] Comment on above: Performed By: #### L 100.0100, L500.2500 #### [facility] [address] [place], [address] RDW SD 45.1 fl High 35.1-43.9 [facility] Comment on above: Performed By: #### L 100.0100, L500.2500 #### [facility] [address] [place], [address] WBC (Bld) [#/Vol] 15.0 10*3/uL High 4.4-11.0 [facility] Comment on above: Performed By: #### L 100.0100, L500.2500 #### [facility] [address] [place] [place], [address] Carbon dioxide, total [Moles /volume] in Central venous bloodOrdered By: Aaron Razo on 05-19-2025 CO2 [Moles/Vol] 21.0 mmol/L 21.0-32.0 [facility] Chloride assayOrdered By: Idris Razo on 05-19-2025 Chloride [Moles/Vol] 105 mmol/L 98-108 [facility] Consultation - Infectious Dx on 05-19-2025 Consultation - Infectious Dx [facility] Medical Records Department [address] [place] [address] Consultation - Infectious Dx 05/19/25 1257 MR#: [id number] Acct: [id number] Name: LUKE DOLAN Rep #: [id number] : [id number] 69 From: Camden Flores MD PCP: TYRONE DEJESUS Status:ADM IN Location: [place] [address] Assessment Plan Assessment/Plan (1) Septic arthritis of knee, left: PLAN: Taken to OR 05/17/[address] Gonzales for washout. Cxs neg so far, wants to go home today. Will order picc and 3 weeks empiric vanc/ceftriaxone. Will adjust if more cx data comes in. ID followup in 2 weeks. 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 No known inciting event, no h/o gout. No recent skin infections. No fever or chills. Came to ED 05/17, aspiration done, taken to OR that day by Dr. Gonzales. Feeling better on vanc/ceftriaxone, wants to go home today. Full ROS performed and neg except as noted above. [facility] Medical History Diabetes High cholesterol Back pain Gastric reflux Smoker Cardiology follow-up encounter Presence of stent in coronary artery ( 08/2008) Essential hypertension Ventral incisional hernia without obstruction or gangrene Hyperlipidemia Acute [place], anterior wall, subsequent episode of care Old myocardial infarction Syncope and collapse Dyspnea Chest pain Long-term use of high-risk medication Atherosclerotic heart disease of [place] coronary artery without angina pectoris Home Medications ???Medication ???Instructions ???Recorded ???Last Taken ???Type fenofibrate 160 mg tablet 160 mg PO DAILY #30 tabs 12/17/18 05/16/25 Rx rosuvastatin 40 mg tablet (Crestor) 40 mg PO DAILY 06/05/19 5 History lisinopril 40 mg tablet 40 mg PO DAILY #90 tabs 12/13/21 0 05/17/25 Rx aspirin 81 mg tablet,delayed 81 mg PO DAILY 08/17/23 05/16/25 H istory release (Adult Aspirin Regimen) clopidogrel 75 mg tablet 75 mg PO DAILY #90 tabs 05/22/24 0 05/17/25 Rx ezetimibe 10 mg tablet 10 mg PO DAILY 05/17/25 05/17/25 H istory hydrocodone-acetaminophen 5-325mg 1 tab PO Q6H PRN PRN Pain 3 days 05/17/25 Unknown Rx 5mg-325mg #10 TABLETS metformin 500 mg tablet,extended 500 mg PO BID 05/17/25 05/17/25 Hi story release 24 hr oxycodone-acetaminophen 5 mg-325 1 tab PO Q6H 05/17/25 05/16/25 His tory mg tablet pantoprazole 40 mg tablet,delayed 40 mg PO DAILY 05/17/25 05/17/25 History release ceftriaxone 2 gram intravenous 2 g IV DAILY 21 days 05/19/25 Unkn own Rx solution vancomycin 1.5 gram intravenous 1.5 g IV Q12H 21 days 05/19/25 Unk nown Rx solution Allergy/AdvReac Type Severity Reaction Status Date / [...] use type: does not use caffeine: Yes Physical Exam Const alert, oriented x3 and no apparent distress General Appearance: cooperative HEENT normocephalic and head/scalp atraumatic Eyes PERRL and EOMs intact bilaterally Neck supple and No nodes Resp normal air movement and clear to auscultation bilaterally Cardio regular rate and regular rhythm GI soft to palpation, non-tender and non-distended Extremity General Extremity: Negative for edema Skin no rashes or lesions noted Skin Narrative: LLE wrapped Neuro CN's II-XII intact bilaterally Lab / Micro Data Attestation: I reviewed the patient's lab results. 05/19/25 03:09 05/19/25 03:09 Labs: Laboratory Results - last 24 hr 05/18/25 16:07: POC Glucose 191 H 05/18/25 20:44: POC Glucose 178 H 05/19/25 03:09: WBC 15.0 H, RBC 4.70, Hgb 13.4, Hct 40.5, MCV 86.2, MCH (more content not included)... Normal [facility] Crystals, Body Fluidon 05-19 PATH REV Reviewed Normal [facility] Comment on above: Order Comment: Comme nts: Lt KneeComments: Rt Ankle Result Comment: ACUT E INFLAMMATION. RARE NON-URATE CRYSTALS NOTED. Jailyn Turner MD 05/19/2025 AMENDED REPORT 05/19/25 1331 PATH REV previously reported as: Will follow Performed By: #### L 501.080 #### [facility] [address] [place], [place], [address] Culture, Anaerobic Any Sourc leopoldo 05-19-2025 CUAN RESULTS CALLED TO Carmella MCQUEEN 05/17/25 1330 Renata Mathis. REPORT READ BACK BY . Lt Knee No anaerobic bacteria isolated. Normal [facility] Comment on above: Performed By: #### L 501.080 #### [facility] [address] [place], [address] Eosinophil percentageOrdered By: Aaron Razo on 05-19-2025 Eosinophils/100 WBC (Bld) 0.2 % 0-5 [facility] Erythrocyte distribution wid th ratioOrdered By: Aaron Razo on 05-19-2025 Erythrocyte distribution width (RBC) [Ratio] 14.3 % 11.6-14.6 [facility] Erythrocyte distribution wid th standard deviationOrdered By: Aaron Razo on 05-19-2025 Erythrocyte distribution width (RBC) [Ratio] 45.1 fl High 35.1-43.9 [facility] Glomerular filtration rate ( GFR) estimation/1.73 sq m using serum, plasma, or whole bOrdered By: Aaron Razo on 05-19-2025 GFR/1.73 sq M.predicted among non-blacks MDRD (S/P/Bld) [Vol rate/Area] 98 mL/min/{1.73_m2} >60 [facility] Comment on above: mL/min/1.73m2 CKD-EP I Creatinine Equation (2020) [facility] deOrdered By: Aaron Razo on 05-19-2025 Glucose [Mass/Vol] 138 mg/dL High 74-106 [facility] Comment on above: MANAGEMENT OF PATIEN T CARE PER NURSING PROTOCOL Hematocrit Auto (Bld) [Volum e fraction]Ordered By: Aaron Razo on 05-19-2025 Hematocrit (Bld) [Volume fraction] 40.5 % 40-54 [facility] Hemoglobin measurementOrdere d By: Aaron Razo on 05-19-2025 Hemoglobin (Bld) [Mass/Vol] 13.4 g/dL 13.0-16.5 [facility] Immature granulocytes/100 WB C Auto (Bld)Ordered By: Aaron Razo on 05-19-2025 Immature granulocytes/100 WBC (Bld) 0.300 % 0.0-0.9 [facility] Comment on above: IG% - Immature Granu locytes (promyelocytes, myelocytes and metamyelocytes) > 1% indicates that a LEFT SHIFT is Present. MCV (mean corpuscular volume ) determinationOrdered By: Aaron Razo on 05-19-2025 MCV (RBC) [Entitic vol] 86.2 fL 80-94 [facility] Mean corpuscular hemoglobin (MCH) determinationOrdered By: Aaron Razo on 05-19-2025 MCH (RBC) [Entitic mass] 28.5 pg 27.0-32.0 [facility] Mean corpuscular hemoglobin concentration (MCHC) determinationOrdered By: Aaron Razo on 05-19-2025 MCHC (RBC) [Mass/Vol] 33.1 g/dL 32-36 [facility] Mean platelet volume determi nationOrdered By: Aaron Razo on 05-19-2025 Platelet mean volume (Bld) [Entitic vol] 9.5 fL 6.2-12.0 [facility] Monocyte percentageOrdered B y: Aaron Razo on 05-19-2025 Monocytes/100 WBC (Bld) 8.4 % 0-10 [facility] Neutrophil percentageOrdered By: Aaron Razo on 05-19-2025 Neutrophils/100 WBC (Bld) 57.7 % 47-70 [facility] Nucleated red blood cell per centageOrdered By: Aaron Razo on 05-19-2025 Nucleated RBC/100 WBC (Bld) [Ratio] 0 % 0-5 [facility] Platelet countOrdered By: Idris Razo on 05-19-2025 Platelets (Bld) [#/Vol] 305 10*3/uL 150-450 [facility] Potassium measurement (mass/ volume)Ordered By: Aaron Razo on 05-19-2025 Potassium (Unsp spec) [Mass/Vol] 4.1 mmol/L 3.3-5.1 [facility] RBC Auto (Bld) [#/Vol]Ordere d By: Aaron Razo on 05-19-2025 RBC (Bld) [#/Vol] 4.70 10*6/uL 4.6-6.2 [facility] Serum creatinine measurement (mass/volume)Ordered By: Aaron Razo on 05-19-2025 Creatinine [Mass/Vol] 0.77 mg/dL 0.70-1.20 [facility] Serum glucose measurement (m ass/volume)Ordered By: Aaron Razo on 05-19-2025 Glucose [Mass/Vol] 130 mg/dL High 70-99 [facility] Serum or plasma calcium ricky urement (mass/volume)Ordered By: Aaron Razo on 05-19-2025 Calcium [Mass/Vol] 9.1 mg/dL 7.6-11.0 [facility] Serum or plasma urea nitroge n measurement (mass/volume)Ordered By: Aaron Razo on 05-19-2025 Urea nitrogen [Mass/Vol] 15 mg/dL 4-19 [facility] Sodium levelOrdered By: Aaron Razo on 05-19-2025 Sodium [Moles/Vol] 138 mmol/L 133-145 [facility] Trough vancomycin levelOrder ed By: Erickson Robbins on 05-19-2025 Vancomycin trough [Mass/Vol] 12.9 ug/mL 5.0-15.0 [facility] Comment on above: Recommended goal tro ugh ranges are generally 10-15 mcg/ml for less severe/complicated infections such as cellulitis or UTI and 15-20 mcg/ml for more severe/complicated infections such as bacteremia/sepsis, osteomyelitis, pneumonia or meningitis. Goal trough ranges should take into account indication, patient-specific factors and organism CINTHIA.VANCOMYCIN STANDARED DRUG THERAPY TROUGH LEVEL: 5.0 - 15.0 mg/L VANCOMYCIN HIGH INTENSITY THERAPY TROUGH LEVEL: 15.0 - 20.0 mg/L High Intensity therapy recommended for serious lifethreatening infections include:- Thcmdmmjvl-Zwibiesemtck-Lllzteypb (Ventilator/Healtcare Associated)-Sepsis PLEASE CONTACT PHARMACY SERVICES (#1625) FOR INTERPRETATIONOF RESULTS. Vancomycin, Trough Levelon 0 05-19-2025 VANCO, TROUGH 12.9 ug/mL Normal 5.0-15.0 [facility] Comment on above: Order Comment: Comme nts: Trough to be drawn 30 mins prior to scheduled [id number] Result Comment: Celso mmended goal trough ranges are generally 10-15 mcg/ml for less severe/complicated infections such as cellulitis or UTI and 15-20 mcg/ml for more severe/complicated infections such as bacteremia/sepsis, osteomyelitis, pneumonia or meningitis. Goal trough ranges should take into account indication, patient-specific factors and organism CINTHIA. VANCOMYCIN STANDARED DRUG THERAPY TROUGH LEVEL: 5.0 - 15.0 mg/L VANCOMYCIN HIGH INTENSITY THERAPY TROUGH LEVEL: 15.0 - 20.0 mg/L High Intensity therapy recommended for serious life threatening infections include: - Meningitis -Endocarditis -Pneumonia (Ventilator/Healtcare Associated) -Sepsis PLEASE CONTACT PHARMACY SERVICES (#0584) FOR INTERPRETATION OF RESULTS. Performed By: #### L 501.080 #### [facility] [address] [place], [address] White blood cell (WBC) count Ordered By: Aaron Razo on 05-19-2025 WBC (Bld) [#/Vol] 15.0 10*3/uL High 4.4-11.0 [facility] Basic Metabolic Profile (BMP )on 05-18-2025 BUN/CRE 18.7 RATIO Normal 10-20 [facility] Comment on above: Performed By: #### L 501.080 #### [facility] [address] [place], [address] Calcium [Mass/Vol] 8.8 mg/dL Normal 7.6-11.0 [facility] Comment on above: Performed By: #### L 501.080 #### [facility] [address] [place], [address] Chloride [Moles/Vol] 103 mmol/L Normal 98-108 [facility] Comment on above: Performed By: #### L 501.080 #### [facility] [address] [place], [address] CO2 [Moles/Vol] 21.7 mmol/L Normal 21.0-32.0 [facility] Comment on above: Performed By: #### L 501.080 #### [facility] [address] [place], [address] Creatinine [Mass/Vol] 0.92 mg/dL Normal 0.70-1.20 [facility] Comment on above: Performed By: #### L 501.080 #### [facility] [address] [place], [address] ECRCL 75.70 ml/min Normal 50-250 [facility] Comment on above: Performed By: #### L 501.080 #### [facility] [address] [place], [address] GAP 10 Normal 5-15 [facility] Comment on above: Performed By: #### L 501.080 #### [facility] [address] [place], [address] GFR/1.73 sq M.predicted among non-blacks MDRD (S/P/Bld) [Vol rate/Area] 91 mL/min/{1.73_m2} Normal >60 [facility] Comment on above: Result Comment: mL/m in/1.73m2 CKD-EPI Creatinine Equation (2020) Performed By: #### L 501.080 #### [facility] [address] [place], [address] Glucose [Mass/Vol] 185 mg/dL High 70-99 [facility] Comment on above: Performed By: #### L 501.080 #### [facility] [address] [place], [address] Potassium [Moles/Vol] 4.6 mmol/L Normal 3.3-5.1 [facility] Comment on above: Result Comment: Hemo lysis present, Results??could be affected. ?? Performed By: #### L 501.080 #### [facility] [address] [place], [address] Sodium [Moles/Vol] 134 mmol/L Normal 133-145 [facility] Comment on above: Performed By: #### L 501.080 #### [facility] [address] [place], [address] Urea nitrogen [Mass/Vol] 17 mg/dL Normal 4-19 [facility] Comment on above: Performed By: #### L 501.080 #### [facility] [address] [place], [address] Bedside Glucoseon 05-18-2025 FINGERSTICK GLU 178 mg/dL High 74-106 [facility] Comment on above: Result Comment: BRIGETTE AGUIRRE OF PATIENT CARE PER NURSING PROTOCOL Performed By: #### L 100.0100, L500.2500 #### [facility] [address] [place], [address] FINGERSTICK GLU 191 mg/dL High 74-106 [facility] Comment on above: Result Comment: BRIGETTE GEMENT OF PATIENT CARE PER NURSING PROTOCOL Performed By: #### L 501.080 #### [facility] [address] [place], [address] FINGERSTICK GLU 186 mg/dL High 74-106 [facility] Comment on above: Result Comment: BRIGETTE GEMENT OF PATIENT CARE PER NURSING PROTOCOL Performed By: #### L 501.080 #### [facility] [address] [place], [address] FINGERSTICK GLU 195 mg/dL High 74-106 [facility] Comment on above: Result Comment: BRIGETTE GEMENT OF PATIENT CARE PER NURSING PROTOCOL Performed By: #### L 100.0100, L500.2500 #### [facility] [address] [place], [address] CBC-Complete Blood Cnt No Di ffon 05-18-2025 Erythrocyte distribution width (RBC) [Ratio] 14.3 % Normal 11.6-14.6 [facility] Comment on above: Performed By: #### L 501.080 #### [facility] [address] [place], [address] Hematocrit (Bld) [Volume fraction] 40.8 % Normal 40-54 [facility] Comment on above: Performed By: #### L 501.080 #### [facility] [address] [place], [address] Hemoglobin (Bld) [Mass/Vol] 13.2 g/dL Normal 13.0-16.5 [facility] Comment on above: Performed By: #### L 501.080 #### [facility] [address] [place], [address] MCH (RBC) [Entitic mass] 28.1 pg Normal 27.0-32.0 [facility] Comment on above: Performed By: #### L 501.080 #### [facility] [address] [place], [address] MCHC (RBC) [Mass/Vol] 32.4 g/dL Normal 32-36 [facility] Comment on above: Performed By: #### L 501.080 #### [facility] [address] [place], [address] MCV (RBC) [Entitic vol] 87.0 fL Normal 80-94 [facility] Comment on above: Performed By: #### L 501.080 #### [facility] [address] [place], [address] Platelet mean volume (Bld) [Entitic vol] 9.2 fL Normal 6.2-12.0 [facility] Comment on above: Performed By: #### L 501.080 #### [facility] [address] [place], [address] Platelets (Bld) [#/Vol] 282 10*3/uL Normal 150-450 [facility] Comment on above: Performed By: #### L 501.080 #### [facility] [address] [place], [address] RBC (Bld) [#/Vol] 4.69 10*6/uL Normal 4.6-6.2 [facility] Comment on above: Performed By: #### L 501.080 #### [facility] [address] [place], [address] RDW SD 45.8 fl High 35.1-43.9 [facility] Comment on above: Performed By: #### L 501.080 #### [facility] [address] [place], [address] WBC (Bld) [#/Vol] 15.2 10*3/uL High 4.4-11.0 [facility] Comment on above: Performed By: #### L 501.080 #### [facility] [address] [place], [address] 12 Lead EKGon 05-17-2025 12 Lead E[address] [facility] [address] [place] [address] 12 Lead EKG 05/17/25 1424 MR#: [id number] Acct: [id number] Name: LUKE DOLAN Rep #: [id number] : 1955 69 From: Carlos Ureña MD Attending Dr: Dr. Aaron Razo DO Status: DIS IN Ordering Dr: Mynor De Leon MD Date: 05/17/25 Location: [facility] Sex: M C Admitted: 05/17/25 Test Reason : PRE OP Blood Pressure : */* mmHG Vent. Rate : 74 BPM Atrial Rate : 74 BPM P-R Int : 174 ms QRS Dur : 84 ms QT Int : 372 ms P-R-T Axes : 43 9 56 degrees QTcB Int : 412 ms Normal sinus rhythm Normal ECG Confirmed by KIESHA GUEVARA, CARLOS ([id number]), web editor KACIE PERKINS ([id number]) on 05/20/2025 6:35:35 AM Referred By: Erickson Robbins Confirmed By: CARLOS UREÑA MD 05/20/25 0635 Date Carlos Ureña MD CC: Dr. Erickson oRbbins DO; Dr. Aaron Razo DO; Dr. Mynor De Leon MD; TYRONE DEJESUS Signed Normal [facility] Absolute lymphocyte countOrd ered By: Mynor De Leon on 05-17-2025 Lymphocytes Auto (Unsp spec) [#/Vol] 6.61 10*3/uL High 0.83-4.51 [facility] Absolute neutrophil countOrd ered By: Mynor De Leon on 05-17-2025 Neutrophils (Bld) [#/Vol] 8.9 10*3/uL High 2.0-7.7 [facility] Anaerobic cultureOrdered By: Mynor De Leon on 05-17-2025 Bacteria identified Anaer cx Nom (Unsp spec) No anaerobic bacteria isolated. [facility] Anion gap in Serum or Plasma Ordered By: Mynor De Leon on 05-17-2025 Anion gap [Moles/Vol] 14 mmol/L 5-15 [facility] Automated lymphocyte count a s percentage of total leukocytesOrdered By: Mynor De Leon on 05-17-2025 Lymphocytes/100 WBC Auto (Unsp spec) 37.9 % -41 [facility] Automated synovial fluid jonelle kocytes count (number/volume)Ordered By: Mynorjames De Leon on 05-17-2025 WBC Auto (Syn fld) [#/Vol] 15.3600 10^3/uL High 0.000-0.00 2 [facility] Automated synovial fluid mon onuclear cell count (number/volume)Ordered By: Mynorjames De Leon on 05-17-2025 Mononuclear cells Auto (Syn fld) [#/Vol] 1.353 10^3/ul [facility] Automated synovial fluid su ymorphonuclear cell count (number/volume)Ordered By: Mynorjames De Leon on 05-17-2025 Polymorphonuclear cells Auto (Syn fld) [#/Vol] 11.969 10^3/uL [facility] Automated synovial fluid su ymorphonuclear cells as percentage of leukocytesOrdered By: Mynorjames De Leon on 05-17-2025 Polymorphonuclear cells/100 WBC Auto (Syn fld) 89.8 % [facility] BUN/creatinine ratioOrdered By: Mynorjames De Leon on 05-17-2025 Urea nitrogen/Creatinine [Mass ratio] 13.7 mg/mg 10-20 [facility] Basophil percentageOrdered B y: Mynor De Leon on 05-17-2025 Basophils/100 WBC (Bld) 0.5 % 0-1 [facility] Bedside Glucoseon 05-17-2025 FINGERSTICK GLU 237 mg/dL High 74-106 [facility] Comment on above: Result Comment: BRIGETTE AGUIRRE OF PATIENT CARE PER NURSING PROTOCOL Performed By: #### L 100.0100, L500.2500 #### [facility] [address] [place], [address] FINGERSTICK GLU 148 mg/dL High 74-106 [facility] Comment on above: Result Comment: BRIGETTE GEMENT OF PATIENT CARE PER NURSING PROTOCOL Performed By: #### L 501.080 #### [facility] [address] [place], [address] FINGERSTICK GLU 138 mg/dL High 74-106 [facility] Comment on above: Result Comment: BRIGETTE GEMENT OF PATIENT CARE PER NURSING PROTOCOL Performed By: #### L 100.0100, L500.2500 #### [facility] [address] [place], [address] Bilirubin, totalOrdered By: Mynor De Leon on 05-17-2025 Bilirubin [Mass/Vol] 0.47 mg/dL 0.00-1.30 [facility] Blood lymphocytes/100 leukoc ytesOrdered By: Mynorjames De Leon on 05-17-2025 Lymphocytes/100 WBC (Bld) 1 % [facility] Body fluid crystal identific ation by light microscopyOrdered By: Mynor De Leon on 05-17-2025 Crystals LM Nom (Body fld) NO CRYSTALS SEEN [facility] Comment on above: CRYSTAL RESULT IS PRELIMINARY. SEE PATH REVIEW FOR FINAL REPORT. Body fluid cultureOrdered By : Mynor De Leon on 05-17-2025 Microbial culture, body fluid Culture exhibits no growth. [facility] CBC W/Diff, Automatedon 04-28 Absolute Lymph 6.61 X10 3/uL High 0.83-4.51 [facility] Comment on above: Performed By: #### L 501.080 #### [facility] [address] [place], [address] Absolute Neut 8.9 X10 3/uL High 2.0-7.7 [facility] Comment on above: Performed By: #### L 501.080 #### [facility] [address] [place], [address] Basophils/100 WBC (Bld) 0.5 % Normal 0-1 [facility] Comment on above: Performed By: #### L 501.080 #### [facility] [address] [place], [address] Eosinophils/100 WBC (Bld) 1.0 % Normal 0-5 [facility] Comment on above: Performed By: #### L 501.080 #### [facility] [address] [place], [address] Erythrocyte distribution width (RBC) [Ratio] 14.3 % Normal 11.6-14.6 [facility] Comment on above: Performed By: #### L 501.080 #### [facility] [address] [place], [address] Hematocrit (Bld) [Volume fraction] 46.6 % Normal 40-54 [facility] Comment on above: Performed By: #### L 501.080 #### [facility] [address] [place], [address] Hemoglobin (Bld) [Mass/Vol] 15.5 g/dL Normal 13.0-16.5 [facility] Comment on above: Performed By: #### L 501.080 #### [facility] [address] [place], [address] IG% 0.200 Normal 0.0-0.9 [facility] Comment on above: Result Comment: IG% - Immature Granulocytes (promyelocytes, myelocytes and metamyelocytes) > 1% indicates that a LEFT SHIFT is Present. Performed By: #### L 501.080 #### [facility] [address] [place], [address] Lymphocytes/100 WBC (Bld) 37.9 % Normal 19-41 [facility] Comment on above: Performed By: #### L 501.080 #### [facility] [address] [place], [address] MCH (RBC) [Entitic mass] 28.5 pg Normal 27.0-32.0 [facility] Comment on above: Performed By: #### L 501.080 #### [facility] [address] [place], [address] MCHC (RBC) [Mass/Vol] 33.3 g/dL Normal 32-36 [facility] Comment on above: Performed By: #### L 501.080 #### [facility] [address] [place], [address] MCV (RBC) [Entitic vol] 85.8 fL Normal 80-94 [facility] Comment on above: Performed By: #### L 501.080 #### [facility] [address] [place], [address] Monocytes/100 WBC (Bld) 9.4 % Normal 0-10 [facility] Comment on above: Performed By: #### L 501.080 #### [facility] [address] [place], [address] Neutrophils/100 WBC (Bld) 51.0 % Normal 47-70 [facility] Comment on above: Performed By: #### L 501.080 #### [facility] [address] [place], [address] Nucleated RBC (Bld) [#/Vol] 0 10*3/uL Normal 0-5 [facility] Comment on above: Performed By: #### L 501.080 #### [facility] [address] [place], [address] Platelet mean volume (Bld) [Entitic vol] 9.1 fL Normal 6.2-12.0 [facility] Comment on above: Performed By: #### L 501.080 #### [facility] [address] [place], [address] Platelets (Bld) [#/Vol] 297 10*3/uL Normal 150-450 [facility] Comment on above: Performed By: #### L 501.080 #### [facility] [address] [place], [address] RBC (Bld) [#/Vol] 5.43 10*6/uL Normal 4.6-6.2 [facility] Comment on above: Performed By: #### L 501.080 #### [facility] [address] [place], [address] RDW SD 44.8 fl High 35.1-43.9 [facility] Comment on above: Performed By: #### L 501.080 #### [facility] [address] [place], [address] WBC (Bld) [#/Vol] 17.5 10*3/uL High 4.4-11.0 [facility] Comment on above: Performed By: #### L 501.080 #### [facility] [address] [place], [address] CRPon 05-17-2025 C-REACTIVE PROT 19.80 mg/L High 0.0-3.0 [facility] Comment on above: Performed By: #### L 501.080 #### [facility] [address] [place], [address] Carbon dioxide, total [Moles /volume] in Central venous bloodOrdered By: Mynor De Leon on 05-17-2025 CO2 [Moles/Vol] 20.2 mmol/L Low 21.0-32.0 [facility] Chloride assayOrdered By: Ug o Moises on 05-17-2025 Chloride [Moles/Vol] 101 mmol/L 98-108 [facility] Comprehensive Metabolic Prof ilon 05-17-2025 Albumin [Mass/Vol] 4.0 g/dL Normal 3.4-4.8 [facility] Comment on above: Performed By: #### L 501.080 #### [facility] [address] [place], [address] Albumin/Globulin [Mass ratio] 1.3 {ratio} Normal 0.9-2.4 [facility] Comment on above: Performed By: #### L 501.080 #### [facility] [address] [place], [address] ALK PHOS 66 U/L Normal 40-129 [facility] Comment on above: Performed By: #### L 501.080 #### [facility] [address] [place], [address] ALT [Catalytic activity/Vol] 9 U/L Normal <=46 [facility] Comment on above: Performed By: #### L 501.080 #### [facility] [address] [place], [address] AST [Catalytic activity/Vol] 19 U/L Normal <=37 [facility] Comment on above: Performed By: #### L 501.080 #### [facility] [address] [place], [address] Bilirubin [Mass/Vol] 0.47 mg/dL Normal 0.00-1.30 [facility] Comment on above: Performed By: #### L 501.080 #### [facility] [address] [place], [address] BUN/CRE 13.7 RATIO Normal 10-20 [facility] Comment on above: Performed By: #### L 501.080 #### [facility] [address] [place], [address] Calcium [Mass/Vol] 9.6 mg/dL Normal 7.6-11.0 [facility] Comment on above: Performed By: #### L 501.080 #### [facility] [address] [place], [address] Chloride [Moles/Vol] 101 mmol/L Normal 98-108 [facility] Comment on above: Performed By: #### L 501.080 #### [facility] [address] [place], [address] CO2 [Moles/Vol] 20.2 mmol/L Low 21.0-32.0 [facility] Comment on above: Performed By: #### L 501.080 #### [facility] [address] [place], [address] Creatinine [Mass/Vol] 0.87 mg/dL Normal 0.70-1.20 [facility] Comment on above: Performed By: #### L 501.080 #### [facility] [address] [place], [address] ECRCL 80.05 ml/min Normal 50-250 [facility] Comment on above: Performed By: #### L 501.080 #### [facility] [address] [place], [address] GAP 14 Normal 5-15 [facility] Comment on above: Performed By: #### L 501.080 #### [facility] [address] [place], [address] GFR/1.73 sq M.predicted among non-blacks MDRD (S/P/Bld) [Vol rate/Area] 94 mL/min/{1.73_m2} Normal >60 [facility] Comment on above: Result Comment: mL/m in/1.73m2 CKD-EPI Creatinine Equation (2020) Performed By: #### L 501.080 #### [facility] [address] [place], [address] Globulin (S) [Mass/Vol] 3.1 g/dL Normal 2.2-4.2 [facility] Comment on above: Performed By: #### L 501.080 #### [facility] [address] [place], [address] Glucose [Mass/Vol] 112 mg/dL High 70-99 [facility] Comment on above: Performed By: #### L 501.080 #### [facility] [address] [place], [address] Potassium [Moles/Vol] 4.0 mmol/L Normal 3.3-5.1 [facility] Comment on above: Performed By: #### L 501.080 #### [facility] [address] [place], [address] Sodium [Moles/Vol] 135 mmol/L Normal 133-145 [facility] Comment on above: Performed By: #### L 501.080 #### [facility] [address] [place], [address] T PROT 7.1 g/dL Normal 5.9-8.4 [facility] Comment on above: Performed By: #### L 501.080 #### [facility] [address] [place], [address] Urea nitrogen [Mass/Vol] 12 mg/dL Normal 4-19 [facility] Comment on above: Performed By: #### L 501.080 #### [facility] [address] [place], [address] Consultation - Orthopedicson 05-17-2025 Consultation - Orthopedics [facility] Medical Records Department [address] [place] [address] Consultation - Orthopedics 05/17/25 1422 MR#: [id number] Acct: [id number] Name: LUKE DOLAN Tommy Rep #: [id number] : 1955 69 From: Dom Gonzales MD PCP: TYRONE DEJESUS COMMUNICATIONS CLERK-C Status:REG [facility] Location: [facility] AC-TBA-1 HPI Consult Data Date of Consult: 05/17/25 [...] sips of coffee. Did not eat lunch. [facility] Medical History Diabetes High cholesterol Back pain Gastric reflux Smoker Cardiology follow-up encounter Presence of stent in coronary artery ( 08/2008) Essential hypertension Ventral incisional hernia without obstruction or gangrene Hyperlipidemia Acute [place], anterior wall, subsequent episode of care Old myocardial infarction Syncope and collapse Dyspnea Chest pain Long-term use of high-risk medication Atherosclerotic heart disease of [place] coronary artery without angina pectoris Home Medications ???Medication ???Instructions ???Recorded ???Last Taken ???Type fenofibrate 160 mg tablet 160 mg PO DAILY #30 tabs 12/17/18 05/16/25 Rx rosuvastatin 40 mg tablet (Crestor) 40 mg PO DAILY 06/05/19 5 History lisinopril 40 mg tablet 40 mg PO DAILY #90 tabs 12/13/21 0 05/17/25 Rx aspirin 81 mg tablet,delayed 81 mg PO DAILY 08/17/23 05/16/25 H istory release (Adult Aspirin Regimen) clopidogrel 75 mg tablet 75 mg PO DAILY #90 tabs 05/22/24 0 05/17/25 Rx ezetimibe 10 mg tablet 10 mg PO DAILY 05/17/25 05/17/25 H istory hydrocodone-acetaminophen 5-325mg 1 tab PO Q6H PRN PRN Pain 3 days 05/17/25 Unknown Rx 5mg-325mg #10 TABLETS metformin 500 mg tablet,extended 500 mg PO BID 05/17/25 05/17/25 Hi story release 24 hr oxycodone-acetaminophen 5 mg-325 1 tab PO Q6H 05/17/25 05/16/25 His tory mg tablet pantoprazole 40 mg tablet,delayed 40 mg PO DAILY 05/17/25 05/17/25 History release Allergy/AdvReac Type Severity Reaction Status [...] warmth. No obvious overlying redness. The range (more content not included)... Normal [facility] Determination of appearance of synovial fluid (nominal result)Ordered By: Mynor De Leon on 05-17-2025 Appearance (Syn fld) Cloudy CLEAR [facility] Emergency Department Summary on 05-17-2025 Emergency Department Summary [facility] Medical Records Department [address] [place] [address] Emergency Department Summary 05/17/25 MR#: [id number] Acct: [id number] Name: LUKE DOLAN Rep #: [id number] : 1955 69 From: Mynor De Leon MD PCP: TYRONE DEJESUS COMMUNICATIONS CLERKRogersC Status:REG [facility] Location: [place] [address] HPI History of Present Illness Chief Complaint: Back Detail of Chief Complaint: Back pain that started prior to left knee pain and swelling Informant: patient Onset/Context/Timing Onset: Weeks (Back pain for approximately 1 week, knee pain for the past several days) Context: Sudden Onset Injury: - (No history [...] pain. Does have history of indirect trauma of lifting. He reported pain going down the posterior [...] denies any direct or indirect trauma. He had a prior injury where a lawnmower blade went into his knee. There is a scar noted. Prior similar symptoms: Yes and With Prior Back Pain Recent Illness/Hospitalization: No PFSH PFSH Medical History Diabetes High cholesterol Back pain Gastric reflux Smoker Cardiology follow-up encounter Presence of stent in coronary artery ( 08/2008) Essential hypertension Ventral incisional hernia without obstruction or gangrene Hyperlipidemia Acute [place], anterior wall, subsequent episode of care Old myocardial infarction Syncope and collapse Dyspnea Chest pain Long-term use of high-risk medication Atherosclerotic heart disease of [place] coronary artery without angina pectoris Home Medications ???Medication ???Instructions ???Recorded ???Last Taken ???Type fenofibrate 160 mg tablet 160 mg PO DAILY #30 tabs 12/17/18 05/16/25 Rx rosuvastatin 40 mg tablet (Crestor) 40 mg PO DAILY 06/05/19 5 History lisinopril 40 mg tablet 40 mg PO DAILY #90 tabs 12/13/21 0 05/17/25 Rx aspirin 81 mg tablet,delayed 81 mg PO DAILY 08/17/23 05/16/25 H istory release (Adult Aspirin Regimen) clopidogrel 75 mg tablet 75 mg PO DAILY #90 tabs 05/22/24 0 05/17/25 Rx ezetimibe 10 mg tablet 10 mg PO DAILY 05/17/25 05/17/25 H istory hydrocodone-acetaminophen 5-325mg 1 tab PO Q6H PRN PRN Pain 3 days 05/17/25 Unknown Rx 5mg-325mg #10 TABLETS metformin 500 mg tablet,extended 500 mg PO BID 05/17/25 05/17/25 Hi story release 24 hr oxycodone-acetaminophen 5 mg-325 1 tab PO Q6H 05/17/25 05/16/25 His tory mg tablet pantoprazole 40 mg tablet,delayed 40 mg PO DAILY 05/17/25 05/17/25 History release Allergy/AdvReac Type Severity Reaction Status [...] holidays/special occasions only substance use type: does n (more content not included)... Normal [facility] Eosinophil percentageOrdered By: Mynor De Leon on 05-17-2025 Eosinophils/100 WBC (Bld) 1.0 % 0-5 [facility] Erythrocyte Sed Rateon 05-17 SED RATE 45 mm/hr High 0-20 [facility] Comment on above: Performed By: #### L 501.080 #### [facility] [address] [place], [place] [address]all [facility] [place], [address] Erythrocyte distribution wid th ratioOrdered By: Mynor De Leon on 05-17-2025 Erythrocyte distribution width (RBC) [Ratio] 14.3 % 11.6-14.6 [facility] Erythrocyte distribution wid th standard deviationOrdered By: Mynorjames De Leon on 05-17-2025 Erythrocyte distribution width (RBC) [Ratio] 44.8 fl High 35.1-43.9 [facility] Erythrocyte sedimentation ra teOrdered By: Mynor De Leon on 05-17-2025 ESR (Bld) [Velocity] 45 mm/h High 0-20 [facility] Glomerular filtration rate ( GFR) estimation/1.73 sq m using serum, plasma, or whole bOrdered By: Mynor De Leon on 05-17-2025 GFR/1.73 sq M.predicted among non-blacks MDRD (S/P/Bld) [Vol rate/Area] 94 mL/min/{1.73_m2} >60 [facility] Comment on above: mL/min/1.73m2 CKD-EP I Creatinine Equation (2020) Gram Stainon 05-17-2025 GS RESULTS CALLED TO Carmella MCQUEEN 05/17/25 1330 Renata Mathis. REPORT READ BACK BY . Lt Knee Centrifuged Specimen? Culture performed on centrifuged specimen Gram Stain 3+ White Blood Cells 1+ Gram positive cocci Normal [facility] Comment on above: Performed By: #### L 501.080 #### [facility] [address] [facility] [place], [address] Gram stainOrdered By: Mynor velazquez on 05-17-2025 Microscopic observation Gram stain Nom (Unsp spec) [facility] H AND P Exam - Hospitaliston 05-17-2025 H&P Exam - Hospitalist [facility] Medical Records Department [address] [place] [address] H P Exam - Hospitalist 05/17/25 1444 MR#: [id number] Acct: [id number] Name: LUKE DOLAN Rep #: [id number] : 1955 69 From: Erickson Robbins DO PCP: TYRONE DEJESUS COMMUNICATIONS CLERK-C Status:ADM IN Location: [facility] [id number] HPI - General General Date of Admission: 05/17/25 Date of Service: 05/17/25 Chief Complaint: Worsening left knee pain with swelling HPI Narrative LUKE DOLAN, is a 69 M who presented to [facility] ED on 05/17/2025 with worsening left knee pain with swelling. Medical history is significant for CAD with stenting, hypertension, diabetes and tobacco use. He presented with both left knee pain and swelling and atraumatic low back pain. Lumbar spine x-ray showed degenerative disease with no acute findings and it was suspected that the low back pain was musculoskeletal in nature. However, the knee x-ray showed mild to moderate degenerative changes with chondrocalcinosis, moderate soft tissue edema and a large joint effusion. Had arthrocentesis of the left knee done in the ED. Notably had low-grade fever, WBC count 17 and increased ESR and CRP, and synovial fluid aspiration showed 1+ Gram stain as well as 15,000 white blood cell count with 70% neutrophil predominance and negative crystal analysis. Case was discussed with Dr. Gonzales with orthopedics who noted that there was concern for acute septic joint and recommendation was for urgent surgical intervention. He had a full diagnostic arthroscopy done this afternoon that showed a small joint effusion, minor amount of synovitis and chondrocalcinosis noted. Per Dr. Gonzales's note, does not appear there was any cailin purulence or severe signs of infection noted. Knee was irrigated thoroughly and debrided during the procedure as well. He was taken to the PACU postoperatively in stable condition. Hospitalist was then contacted to admit the patient. I saw the patient at bedside on MedSurg shortly after he arrived up there. Patient was sitting back comfortably in bed, conversing normally, in no acute distress. Noted that he did have some left knee pain after the procedure but had just been given doses of oxycodone and Tylenol and had moderate improvement of the pain with this. He denied any back pain currently. Had just eaten his dinner without issue. No other acute concerns at this time. [facility] Medical History Diabetes High cholesterol Back pain Gastric reflux Smoker Cardiology follow-up encounter Presence of stent in coronary artery ( 08/2008) Essential hypertension Ventral incisional hernia without obstruction or gangrene Hyperlipidemia Acute [place], anterior wall, subsequent episode of care Old myocardial infarction Syncope and collapse Dyspnea Chest pain Long-term use of high-risk medication Atherosclerotic heart disease of [place] coronary artery without angina pectoris Home Medications ???Medication ???Instructions ???Recorded ???Last Taken ???Type fenofibrate 160 mg tablet 160 mg PO DAILY #30 tabs 12/17/18 05/16/25 Rx rosuvastatin 40 mg tablet (Crestor) 40 mg PO DAILY 06/05/19 5 History lisinopril 40 mg tablet 40 mg PO DAILY #90 tabs 12/13/21 0 05/17/25 Rx aspirin 81 mg tablet,delayed 81 mg PO DAILY 08/17/23 05/16/25 H istory release (Adult Aspirin Regimen) clopidogrel 75 mg tablet 75 mg PO DAILY #90 tabs 05/22/24 0 05/17/25 Rx ezetimibe 10 mg tablet 10 mg PO DAILY 05/17/25 05/17/25 H istory hydrocodone-acetaminophen 5-325mg 1 tab PO Q6H PRN PRN Pain 3 days 05/17/25 Unknown Rx 5mg-325mg #10 TABLETS metformin 500 mg tablet,extended 500 mg PO BID 05/17/25 05/17/25 Hi story release 24 hr oxycodone-acetaminophen 5 mg-325 1 tab PO Q6H 05/17/25 05/16/25 His tory mg tablet pantoprazole 40 mg tablet,delayed 40 mg PO DAILY 05/17/25 05/17/25 History release Allergy/AdvReac Type Severity Reaction Status [...] hernia repair History of tonsillectomy Social History (Reviewed 05/17/25 @ (more content not included)... Normal [facility] Hematocrit Auto (Bld) [Volum e fraction]Ordered By: Mynor De Leon on 05-17-2025 Hematocrit (Bld) [Volume fraction] 46.6 % 40-54 [facility] Hemoglobin A1con 05-17-2025 HbA1c (Bld) [Mass fraction] 7.1 % High <=5.6 [facility] Comment on above: Result Comment: Norm al < 5.7 % Prediabetic 5.7 - 6.4 % Diabetic >or= 6.5 % Please note range changes. Performed By: #### L 100.0100, L500.2500 #### [facility] [address] [place], [address] Hemoglobin A1c percentageOrd ered By: Erickson Robbins on 05-17-2025 HbA1c (Bld) [Mass fraction] 7.1 % High <5.7 [facility] Comment on above: Normal < 5.7 % Predi abetic 5.7 - 6.4 % Diabetic >or= 6.5 % Please note range changes. Hemoglobin measurementOrdere d By: Mynor De Leon on 05-17-2025 Hemoglobin (Bld) [Mass/Vol] 15.5 g/dL 13.0-16.5 [facility] Immature granulocytes/100 WB C Auto (Bld)Ordered By: Mynor De Leon on 05-17-2025 Immature granulocytes/100 WBC (Bld) 0.200 % 0.0-0.9 [facility] Comment on above: IG% - Immature Granu locytes (promyelocytes, myelocytes and metamyelocytes) > 1% indicates that a LEFT SHIFT is Present. Knee 4 or More Viewson 05-17 Knee 4 or More Views [facility] Imaging Services [address] [place], [place] [address] Knee 4 or More Views MR#: [id number] Acct: [id number] Name: LUKE DOLAN Rep #: [id number] : 1955 M 69 From: Divya Kan PCP: TYRONE DEJESUS COMMUNICATIONS CLERK-C Status: REG ER Study: Knee 4 or More Views Date of Exam: 05/17/25 Exam# [id number] Ordering Dr: Mynor De Leon MD PROCEDURE: KNEE 4 OR MORE VIEWS 05/17/2025 REASON FOR EXAM: INJURY/PAIN TECHNIQUE: KNEE 4 OR MORE VIEWS COMPARISON: none RAD/Knee 4 or More Views IMPRESSION: No acute fracture or dislocations. Mild to moderate degenerative changes of the left knee with chondrocalcinosis. Moderate soft tissue edema. Large joint effusion. No radiographic foreign body. Reading Location: [id number] CC: Dr. Mynor De Leon MD; TYRONE DEJESUS Youth Services Librarian: Signed Normal [facility] Laboratory - Chemistry and C hemistry - challengeOrdered By: Mynor De Leon on 05-17-2025 AST [Catalytic activity/Vol] 19 U/L <38 [facility] Lumbar Spine 2 or 3 Viewson 05-17-2025 Lumbar Spine 2 or [address] [facility] Imaging Services [address] [place], [place] [address] Lumbar Spine 2 or 3 Views MR#: [id number] Acct: [id number] Name: LUKE DOLAN Rep #: [id number] : 1955 M 69 From: Calvin Licea DO PCP: TYRONE DEJESUS Status: REG ER Study: Lumbar Spine 2 or 3 Views Date of Exam: Exam# [id number] Ordering Dr: Mynor De Leon MD PROCEDURE: LUMBAR SPINE 2 [...] process identified. Degenerative disc disease Reading Location: [facility] CC: Dr. Mynor De Leon MD; TYRONE DEJESUS Youth Services Librarian: Signed [facility] MCV (mean corpuscular volume ) determinationOrdered By: Mynor De Leon on 05-17-2025 MCV (RBC) [Entitic vol] 85.8 fL 80-94 [facility] MR/POSTOP.ANEon 05-17-2025 MR/POSTOP.ANE [facility] Medical Records Department [address] [place] [address] Anesthesia Postop Eval I 05/17/25 1557 MR#: [id number] Acct: [id number] Name: LUKE DOLAN Tommy Rep #: [id number] : 1955 69 From: Phani Oneil MD PCP: TYRONE DEJESUSC Status:REG SDC Y Race: C Location: [place] [address] Anesthesia: Postop Eval I Current Vital Signs Temperature: 97.3 F Pulse Rate: 85 Blood Pressure: 128/66 Respiratory Rate: 16 Pulse Ox: 100 Oxygen Delivery Method: Room Air Assessment Airway patent: Yes Spontaneous unlabored respirations: Yes Mental status: Awake and Calm nausea: No Vomiting: No Anesthesia Complication: No Fluid Hydration Crystalloid volume administer (ml): 300 Total IV fluid infused: 300 Progress Note Anesthesia document: Postop Eval 1 completed: Yes 05/17/25 1600 Date Phani Oneil MD Cosigner Signature: Date CC: Signed Normal [facility] MR/[id number] 05-17-2025 [facility] Medical Records Department [address] [place] [address] Anesthesia Postop Eval II 05/17/25 1617 MR#: [id number] Acct: [id number] Name: LUKE DOLAN Rep #: [id number] : 1955 From: Phani Oneil MD PCP: TYRONE DEJESUS COMMUNICATIONS CLERKAleyda Status:REG SDC Y Race: C Location: [place] [address] Anesthesia Postop Eval I Sum Postop Eval Completion status Anesthesia document: Postop Eval 1 completed: Yes Anesthesia Postop Eval I Summary Anesthesia Postop Eval I Summary: Anesthesia Postop Eval I: Assessment Summary Airway patent Yes 05/17/25 16:00 Spontaneous unlabored Yes 05/17/25 16:00 respirations Mental status Awake,Calm 05/17/25 16:00 nausea No 05/17/25 16:00 Vomiting No 05/17/25 16:00 Anesthesia Postop Eval I: Fluid Summary Crystalloid volume administer 300 05/17/25 16:00 (ml) Colloids volume administered ( ml) Blood Product volume administered (ml) Total IV fluid infused 300 05/17/25 16:00 Anesthesia Postop Eval I: Summary Notes Anesthesia Complication No 05/17/25 16:00 Anesthesia Complication Comment: Post-operative progress note Anesthesia: Postop Eval II Evaluation Mental status: Awake and Calm Pain Level: 1 nausea: No Vomiting: No Complications Anesthesia Complication: No 05/17/25 1618 Date Phani Oneil MD Cosigner Signature: Date CC: Signed Normal [facility] Mean corpuscular hemoglobin (MCH) determinationOrdered By: Mynorjames De Leon on 05-17-2025 MCH (RBC) [Entitic mass] 28.5 pg 27.0-32.0 [facility] Mean corpuscular hemoglobin concentration (MCHC) determinationOrdered By: Mynor De Leon on 05-17-2025 MCHC (RBC) [Mass/Vol] 33.3 g/dL 32-36 [facility] Mean platelet volume determi nationOrdered By: Mynor De Leon on 05-17-2025 Platelet mean volume (Bld) [Entitic vol] 9.1 fL 6.2-12.0 [facility] Monocyte percentageOrdered B y: Mynor De Leon on 05-17-2025 Monocytes/100 WBC (Bld) 9.4 % 0-10 [facility] Neutrophil percentageOrdered By: Mynorjames De Leon on 05-17-2025 Neutrophils/100 WBC (Bld) 51.0 % 47-70 [facility] Nucleated red blood cell per centageOrdered By: Mynor De Leon on 05-17-2025 Nucleated RBC/100 WBC (Bld) [Ratio] 0 % 0-5 [facility] Operative Reporton 5 Operative Report [facility] Medical Records Department [address] [place] [address] Operative Report 05/17/25 1545 MR#: [id number] Acct: [id number] Name: LUKE DOLAN Rep #: [id number] : 1955 69 From: Dom Gonzales MD PCP: TYRONE DEJESUS COMMUNICATIONS CLERK-C Status:REG [facility] Location: [place] [address] Problems Associated Problem List Diagnoses (1) Septic arthritis of knee, left: (2) Chondrocalcinosis of left knee: Procedures Musculoskeletal 20xxx-29xxx: Other Procedure See Report Operative Report (Standard) Operative Information Date of Procedure: 05/17/25 Pre-Operative Diagnosis: Left septic knee as well as chondrocalcinosis Post-Operative Diagnosis: Same Surgery/Procedure Performed: Left surgery irrigation and debridement, extensive, removal loose body geospatial intelligence analyst: No Type of Anesthesia: General and Local RN Documented Start/Stop Times: Operation Date: 05/17/25 15:20 Case Time Anesthesia Start 05/17/25 15:05 Into Room 05/17/25 15:05 Procedure Start 05/17/25 15:25 Procedure End 05/17/25 15:42 Procedure Start Time: 15:25 Procedure Stop Time: 15:42 Select all DRAINS/GRAFTS/IMPLANTS that apply: None Estimated Blood Loss: 10 Specimen collected: No Description of surgery: Patient brought the operating room theater. Placed supine on the table. General anesthesia induced. The patient had received ceftriaxone previously in the emergency department as well as vancomycin mid way through the case I had ordered this preoperatively that was the soonest the patient could receive that. All bony prominences padded. SCD on the nonoperative leg. Tourniquet applied to left thigh a stress positioner used the patient's left side. Lower extremity prepped and draped in the usual sterile fashion with chlorhexidine-based prep solution allowing over 3 minutes drying time prior to draping. Preoperative timeout performed to confirm the site patient and the surgery. Began by elevating the limb inflating the tourniquet to 250 mmHg. Use standard anterolateral and anteromedial arthroscopy portals. Did a full diagnostic arthroscopy. Pictures saved throughout. Did a debridement synovectomy in all 3 compartments. There is a medial sided plica I debrided that. Underneath this there was some grade 2 cartilage changes on the distal medial femoral condyle. Cartilage in the medial side had grade 1-2 changes grade 1 changes only on the lateral side. Patellofemoral joint had grade 2-3 changes. There is chondrocalcinosis in all 3 compartments I removed any calcium deposits that I was able to visualize and appropriately remove. The medial and lateral meniscus appear normal stable to probing. The ACL was normal I remove the ligamentum mucosum. There is a loose body developing in the anterior prepatellar fat pad I removed this as well. There is a minor amount of synovitis. There is a small joint effusion when I initially put in the arthroscope. I thoroughly irrigated and debrided the knee in all 3 compartments with 6 L of normal saline. Case was terminated meticulous hemostasis achieved tourniquet let down. Wounds cleaned with wet dry dressing close with the portal sites with 3-0 Monocryl. This was followed by instillation of 10 cc of quarter percent bupivacaine in and around the incision sites. Steri-Strips Adaptic 4 x 4 gauze ABD dressing with Donta wrap loosely wrapped around the knee was then placed. Patient woken up from general anesthetic transferred off the operating table taken postanesthetic. In stable condition. All sponge needle instrument counts were correct no complications. Plan for the patient admitting under medicine (Dr. Noble walker) PT OT social work to see weightbearing as tolerated range of motion as tolerated VTE prophylaxis per the hospitalist and celso mmend IV broad spec antibiotics until the cultures are back and they may be tailored and stepdown eventually as well as daily blood work to follow the inflammatory markers. I am happy to follow patient as an outpatient change dressing every 1 to 2 days try to avoid getting the incisions wet. CPT 89066, 57496 Surgical Findings: As above Complications Complications: No Admit VTE Documentation VTE Present on Admission: No VTE Mechan Device Prophylaxis: SCD's VTE Pharm Prophylaxis ordered?: No Reason prophylaxis not ordered: Treatment Not Indicated 05/17/25 1894 Cosigner Signature (if applicable): CC: Dr. Dom Gonzales MD; TYRONE DEJESUS Signed Normal [facility] Pathologist review of result s (narrative result)Ordered By: Mynor De Leon on 05-17-2025 Pathologist review Orestes (Unsp spec) [Interp] May follow [facility] Comment on above: Previous reported re sult: May follow Edited by: GOMEZ on 05/19/25:1331 AMENDED REPORT 05/19/25 1331 PATH COM/SYFL previously reported as: May follow Platelet countOrdered By: Oh De Leon on 05-17-2025 Platelets (Bld) [#/Vol] 297 10*3/uL 150-450 [facility] Potassium measurement (mass/ volume)Ordered By: Mynor De Leon on 05-17-2025 Potassium (Unsp spec) [Mass/Vol] 4.0 mmol/L 3.3-5.1 [facility] Qualitative synovial fluid v iscosityOrdered By: Mynor De Leon on 05-17-2025 Viscosity Ql (Syn fld) Mod. Viscous HIGH [facility] RBC Auto (Bld) [#/Vol]Ordere d By: Mynor De Leon on 05-17-2025 RBC (Bld) [#/Vol] 5.43 10*6/uL 4.6-6.2 [facility] Review by pathologistOrdered By: Mynor De Leon on 05-17-2025 Pathologist review Orestes (Unsp spec) [Interp] Will follow [facility] Pathologist review Orestes (Unsp spec) [Interp] Reviewed [facility] Comment on above: Previous reported re sult: Will follow Edited by: GOMEZ on 05/19/25:1331ACUTE INFLAMMATION.RARE NON-URATE CRYSTALS NOTED.Jailyn Turner MD 05/19/2025 AMENDED REPORT 05/19/25 1331 PATH REV previously reported as: Will follow Serum creatinine measurement (mass/volume)Ordered By: Mynor De Leon on 05-17-2025 Creatinine [Mass/Vol] 0.87 mg/dL 0.70-1.20 [facility] Serum globulin measurementOr dered By: Mynor De Leon on 05-17-2025 Globulin (S) [Mass/Vol] 3.1 g/dL 2.2-4.2 [facility] Serum glucose measurement (m ass/volume)Ordered By: Mynor De Leon on 05-17-2025 Glucose [Mass/Vol] 112 mg/dL High 70-99 [facility] Serum or plasma C reactive p rotein measurement (mass/volume)Ordered By: Mynor De Leon on 05-17-2025 CRP [Mass/Vol] 19.80 mg/L High 0.0-3.0 [facility] Serum or plasma alanine hargrove otransferase (ALT) measurementOrdered By: Mynor De Leon on 05-17-2025 ALT [Catalytic activity/Vol] 9 U/L <47 [facility] Serum or plasma albumin ricky urement (mass/volume)Ordered By: Mynor De Leon on 05-17-2025 Albumin [Mass/Vol] 4.0 g/dL 3.4-4.8 [facility] Serum or plasma albumin/glob ulin mass ratioOrdered By: Mynor De Leon on 05-17-2025 Albumin/Globulin [Mass ratio] 1.3 {ratio} 0.9-2.4 [facility] Serum or plasma alkaline sangeeta sphatase measurementOrdered By: Mynor De Leon on 05-17-2025 ALP [Catalytic activity/Vol] 66 U/L 40-129 [facility] Serum or plasma calcium ricky urement (mass/volume)Ordered By: Mynor De Leon on 05-17-2025 Calcium [Mass/Vol] 9.6 mg/dL 7.6-11.0 [facility] Serum or plasma urea nitroge n measurement (mass/volume)Ordered By: Mynor De Leon on 05-17-2025 Urea nitrogen [Mass/Vol] 12 mg/dL 4-19 [facility] Sodium levelOrdered By: Mynor De Leon on 05-17-2025 Sodium [Moles/Vol] 135 mmol/L 133-145 [facility] Specimen source identificati on of body fluidOrdered By: Mynor De Leon on 05-17-2025 Specimen source Nom (Body fld) SYNOVIAL [facility] Specimen source Nom (Body fld) LT KNEE [facility] Synovial fluid color determi nation (nominal result)Ordered By: Mynor De Leon on 05-17-2025 Color (Syn fld) Yellow Pale Yellow [facility] Synovial fluid erythrocytes count (number/volume)Ordered By: Mynor De Leon on 05-17-2025 RBC (Syn fld) [#/Vol] 0.008 10^6/uL High 0-0 [facility] Synovial fluid monocyte perc entageOrdered By: Mynor De Leon on 05-17-2025 Monocytes/100 WBC (Syn fld) 26 % [facility] Synovial fluid mononuclear c ells/100 leukocytesOrdered By: Mynor De Leon on 05-17-2025 Mononuclear cells/100 WBC (Syn fld) 10.2 % [facility] Synovial fluid neutrophil pe rcentageOrdered By: Mynor De Leon on 05-17-2025 Neutrophils/100 WBC (Syn fld) 73 % High 0-25 [facility] Synovial fluid total cell co untOrdered By: Mynor De Leon on 05-17-2025 Cells Counted Total (Syn fld) [#] 15.3980 10^3/uL High 0.000-0.00 0 [facility] Comment on above: This is the Total Nu mber of Nucleated Cell Types in the Body Fluid. Total proteinOrdered By: Mynor De Leon on 05-17-2025 Protein [Mass/Vol] 7.1 g/dL 5.9-8.4 [facility] White blood cell (WBC) count Ordered By: Mynor De Leon on 05-17-2025 WBC (Bld) [#/Vol] 17.5 10*3/uL High 4.4-11.0 [facility] LUKE D[facility] ([id number]) 1955 M Date Time Provider Department 04/28/25 YESENIA BOUDREAUX During your visit today, we recorded the [...] by PHOENIX THOMPSON on 04/28/25 [facility] 04-23-2025 [facility] Telephone (AGGENS4) LUKE DOLAN ([id number]) 1955 M Date Time Provider Department 04/23/25 YESENIA BOUDREAUX4 During your visit today, we [...] Encounter Status:Closed by PHOENIX THOMPSON on 04/23/25 [facility] 03-17-2025 [facility] Telephone (AGGENS4) LUKE DOLAN ([id number]) 1955 M Date Time Provider Department 03/17/25 YESENIA BOUDREAUX During your visit today, we recorded the following information about you: Phoenix Thompson RN 03/17/2025 10:26 AM Signed I called patient to reschedule his esophageal manometry but patient asked if I would call him back in a week. He said he is scheduled for another test at [facility] and would like to get that completed [...] Encounter Status:Closed by PHOENIX THOMPSON on 03/17/25 [facility] PET/CT Tumor Base -Thigh [facility] 03-11-2025 PET/CT Tumor Base -Thigh Init [facility] Imaging Services [address] [place] [address] PET/CT Tumor Base -Thigh Init MR#: [id number] Acct: [id number] Name: LUKE DOLAN Tommy Rep #: [id number] : 1955 M 69 From: Gilbert Kan PCP: Dr. Camden Briones DO Status: REG CLI Study: PET/CT Tumor Base -Thigh Init Date of Exam: Exam# [id number] Ordering Dr: Camden Briones DO PROCEDURE: PET/CT [...] PET will be reported separately. Reading Location: [address] CC: Dr. Camden Briones DO Youth Services Librarian: Signed Normal [facility] Positron emission tomography scan reportOrdered By: Gilbert Hagen on 03-11-2025 PT Unspecified body region [facility] Imaging Services [address] [place] [address] PET/CT Tumor Base -Thigh Init MR#: [id number] Acct: [id number] Name: LUKE DOLAN Rep #: [id number] : 1955 M 69 From: Sergio Hagen MD PCP: Dr. Camden Briones DO Status: REG CLI Study:PET/CT Tumor Base -Thigh Init Date of E xam: 03/11/25 Exam# [id number] Ordering Dr: Camden Briones DO PROCEDURE: PET/CT [...] PET will be reported separately. Reading Location: [id number] CC: Dr. Camden Briones, DO ~ Youth Services Librarian: Signed [facility] CT THORAX SCREENING W/O CONT [...] Date: 02/28/2025 8:27:08 AM Ordering Provider: CAMDEN BRIONES [facility] 12-11-2024 [facility] Telephone (AGGENS4) LUKE DOLAN ([id number]) 1955 M Date Time Provider Department 12/11/24 YESENIA BOUDREAUX AGGENS4 During your visit today, we recorded the following information about you: Allergies As of Date: 12/11/2024 (No Known Allergies) Date Reviewed: 09/03/2019 Reviewed by: Loco Chatman (Rn), RN - Fully Assessed Primary Visit Diagnosis:Dysphagia, unspecified type [R13.10] Order(s):SURGICAL REQUEST - ELECTIVE (06/2020) [[id number]] Order #: [id number]: 1 Prescriptions as of 12/11/2024 - cephALEXin [...] Encounter Status:Closed by TESS WHITE on 12/11/24 [facility] CNPN Telephone (AGGENS4) LUKE DOLAN ([id number]) 1955 M Date Time Provider Department 12/11/24 [...] Status:Closed by TESS WHITE on 12/11/24 Normal [facility] Esophagus Single Contraston 12-11-2024 Esophagus Single Contrast [facility] Imaging Services [address] [place] [address] Esophagus Single Contrast MR#: [id number] Acct: [id number] Name: LUKE DOLAN Rep #: [id number] : 1955 69 From: Evans luther MD PCP: Dr. Camden Briones, DO Status: REG CLI Study: Esophagus Single Contrast Date of Exam: Exam# [id number] Ordering Dr: Loco Wilde MD [id number] STUDY: X-RAY - ESOPHAGUS (BARIUM SWALLOW) WITH [...] Camden Briones DO; Dr. Loco Wilde MD Youth Services Librarian: Signed Normal [facility] 12-02-2024 [facility] Telephone (AGGENS4) LUKE DOLAN ([id number]) 1955 M Date Time Provider Department 12/02/24 [...] Encounter Status:Closed by PHOENIX THOMPSON on 12/02/24 [facility] 11-29-2024 [facility] LUKE DOLAN ([id number]) 1955 M Date Time Provider Department 11/29/24 [...] Encounter Status:Closed by PAT MARTIN on 11/29/24 [facility] CNCOon 11-12-[address] [facility] CNPNon 11-12-2024 CNPN Telephone (AGGENS4) LUKE DOLAN ([id number]) 1955 M Date Time Provider Department 11/12/24 YESENIA BOUDREAUX AGGENS4 During your visit today, we recorded the following information about you: Phoenix Thompson, LUZ 11/12/2024 11:16 AM Signed I called the [...] type [R13.10] Order(s):SURGICAL REQUEST - ELECTIVE (06/2020) [[id number]] Order #: [id number]: 1 Prescriptions as of 11/12/2024 - cephALEXin [...] Status:Closed by PHOENIX THOMPSON on 11/12/24 Normal [facility] XR ESOPHOGRAM W/BARIUM TABLE Ton [...] 10/31/2024 11:49:46 AM Ordering Provider: CAMDEN Chandra [facility] Final Surgical Pathology Rep toni 10-23-2024 Final Surgical Pathology Report . Pathology Reports Accession: Collected Date/Time: Received Date/Time: Pathologist: [id number] 10/21/2024 09:33 EST 10/22/2024 10:37 EST MD THAIS BRAR Final Surgical Pathology Report DIAGNOSIS: GASTRIC ANTRUM, BIOPSY: - MODERATE ACTIVE CHRONIC GASTRITIS WITH H. PYLORI AND INTESTINAL METAPLASIA - NEGATIVE FOR DYSPLASIA CLINICAL INFORMATION: Procedure: ESOPHAGOGASTRODUODENOSCOPY WITH BIOPSY Preoperative diagnosis: DYSPHAGIA Postoperative diagnosis: DYSPHAGIA SPECIMEN: A GASTRIC ANTRUM BX GROSS DESCRIPTION: All parts labelled with patient name and [id number] Received in formalin labeled gastric antrum biopsy are 6 salomon tissue fragments measuring less than 0.1 to 0.4 x 0.1 cm. Smallest fragments may not survive processing. TS-1 Sierra Segovia, Grossing Print Manager/ Dr. Luke Sellers, Pathologist Performed by Sierra Segovia MICROSCOPIC DESCRIPTION: The microscopic examination is performed, except in the case of Gross Only. Electronically Signed by Pathology Report verified by [facility] THAIS BRAR MD Sign out Date: 10/23/2024 08:35 Performing Lab: [facility], [address] [place] [address] Pathology Dept Disclaimer If ancillary studies were utilized, the following Laboratory Developed Test (LDT) disclaimer will apply: Under CLIA requirements, [facility] is qualified to perform high complexity testing. For all ancillary stains, positive and negative controls stain appropriately. Performance characteristics of immunohistochemical and chromogenic in-situ hybridization tests have been determined by [facility]. These tests are used for clinical purposes, They should not be regarded as investigational or for research. Normal [facility] .Auto Diffon 05-14-2024 Basophil, Absolute 0.1 10 3/mcL Normal 0.0-0.2 [facility] ([place]) Comment on above: Performed By: #### G FR, ANEU, LIPID, CBC, CMP, ADIFF, PSA #### [address] [address] Basophils/100 WBC (Bld) 0.4 % Normal 0.0-2.5 [facility] ([place]) Comment on above: Performed By: #### G FR, ANEU, LIPID, CBC, CMP, ADIFF, PSA #### [address] [address] Eosinophil, Absolute 0.1 10 3/mcL Normal 0.0-0.4 [facility] ([place]) Comment on above: Performed By: #### G FR, ANEU, LIPID, CBC, CMP, ADIFF, PSA #### [address] [address] Eosinophils/100 WBC (Bld) 0.8 % Normal 0.0-7.0 [facility] ([place]) Comment on above: Performed By: #### G FR, ANEU, LIPID, CBC, CMP, ADIFF, PSA #### [address] [address] Lymphocyte, Absolute 5.6 10 3/mcL High 0.8-3.9 [facility] ([place]) Comment on above: Performed By: #### G FR, ANEU, LIPID, CBC, CMP, ADIFF, PSA #### [address] [address] Lymphocytes/100 WBC (Bld) 35.2 % Normal 10.0-50.0 [facility] ([place]) Comment on above: Performed By: #### G FR, ANEU, LIPID, CBC, CMP, ADIFF, PSA #### [address] [address] Monocyte, Absolute 0.9 10 3/mcL Normal 0.2-1.0 [facility] ([place]) Comment on above: Performed By: #### G FR, ANEU, LIPID, CBC, CMP, ADIFF, PSA #### [address] [address] Monocytes/100 WBC (Bld) 5.3 % Normal 1.7-13.0 [facility] ([place]) Comment on above: Performed By: #### G FR, ANEU, LIPID, CBC, CMP, ADIFF, PSA #### [place] [address] [place], [place] [address] Neutrophils/100 WBC (Bld) 58.3 % Normal 37.0-80.0 [facility] ([place]) Comment on above: Performed By: #### G FR, ANEU, LIPID, CBC, CMP, ADIFF, PSA #### [address] [address] .GFRon 05-14-2024 GFR 79 ml/min/1.73sqm Normal [facility] ([place]) Comment on above: Result Comment: GFR Population [...] ANEU, LIPID, CBC, CMP, ADIFF, PSA #### [place] [address] [place], [place] [address] GFR Non- 65 ml/min/1.73sqm Normal [facility] ([place]) Comment on above: Result Comment: GFR Population [...] ANEU, LIPID, CBC, CMP, ADIFF, PSA #### [address] [address] .NEUABSon 05-14-2024 Neutrophil, Absolute 9.3 10 3/mcL High 2.9-6.2 [facility] ([place]) Comment on above: Performed By: #### G FR, ANEU, LIPID, CBC, CMP, ADIFF, PSA #### [place] [address] CBCon 05-14-2024 Erythrocyte distribution width (RBC) [Ratio] 14.7 % High 11.5-14.5 [facility] ([place]) Comment on above: Performed By: #### G FR, ANEU, LIPID, CBC, CMP, ADIFF, PSA #### [address] [address] Hematocrit (Bld) [Volume fraction] 45.9 % Normal 42.0-52.0 [facility] ([place]) Comment on above: Performed By: #### G FR, ANEU, LIPID, CBC, CMP, ADIFF, PSA #### [address] [address] Hgb 15.3 G/dL Normal 14.0-18.0 [facility] ([place]) Comment on above: Performed By: #### G FR, ANEU, LIPID, CBC, CMP, ADIFF, PSA #### [address] [address] MCH (RBC) [Entitic mass] 28.3 pg Normal 27.0-31.2 [facility] ([place]) Comment on above: Performed By: #### G FR, ANEU, LIPID, CBC, CMP, ADIFF, PSA #### [place] [address] MCHC 33.3 G/dL Normal 31.8-35.4 [facility] ([place]) Comment on above: Performed By: #### G FR, ANEU, LIPID, CBC, CMP, ADIFF, PSA #### [address] [address] MCV (RBC) [Entitic vol] 85.1 fL Normal 80.0-94.0 [facility] ([place]) Comment on above: Performed By: #### G FR, ANEU, LIPID, CBC, CMP, ADIFF, PSA #### [address] [address] Platelet 307 10 3/mcL Normal 130-400 [facility] ([place]) Comment on above: Performed By: #### G FR, ANEU, LIPID, CBC, CMP, ADIFF, PSA #### [address] [address] Platelet mean volume (Bld) [Entitic vol] 7.7 fL Normal 7.4-10.4 [facility] ([place]) Comment on above: Performed By: #### G FR, ANEU, LIPID, CBC, CMP, ADIFF, PSA #### [address] [address] RBC 5.39 10 6/mcL Normal 4.04-6.13 [facility] ([place]) Comment on above: Performed By: #### G FR, ANEU, LIPID, CBC, CMP, ADIFF, PSA #### [address] [address] WBC 16.0 10 3/mcL High 4.6-10.8 [facility] ([place]) Comment on above: Performed By: #### G FR, ANEU, LIPID, CBC, CMP, ADIFF, PSA #### [address] [address] CMPon 05-14-2024 Albumin Level 3.5 G/dL Normal 3.4-4.8 [facility] ([place]) Comment on above: Performed By: #### G FR, ANEU, LIPID, CBC, CMP, ADIFF, PSA #### [address] [address] Albumin/Globulin [Mass ratio] 0.9 {ratio} Low 1.1-2.5 [facility] ([place]) Comment on above: Performed By: #### G FR, ANEU, LIPID, CBC, CMP, ADIFF, PSA #### [place] [address] [place], [place] [address] ALP [Catalytic activity/Vol] 51 U/L Normal 40-135 [facility] ([place]) Comment on above: Performed By: #### G FR, ANEU, LIPID, CBC, CMP, ADIFF, PSA #### [address] [address] ALT [Catalytic activity/Vol] 18 U/L Normal 16-63 [facility] ([place]) Comment on above: Performed By: #### G FR, ANEU, LIPID, CBC, CMP, ADIFF, PSA #### [address] [address] AST [Catalytic activity/Vol] 13 U/L Normal 10-40 [facility] ([place]) Comment on above: Performed By: #### G FR, ANEU, LIPID, CBC, CMP, ADIFF, PSA #### [address] [address] Bili Total 0.4 mg/dL Normal 0.2-1.0 [facility] ([place]) Comment on above: Result Comment: Use of this assay is not recommended for patients undergoing treatment with eltrombopag due to the potential for falsely elevated results. Performed By: #### G FR, ANEU, LIPID, CBC, CMP, ADIFF, PSA #### [address] [address] BUN/Creatinine Ratio 13 ratio Normal 7-27 [facility] ([place]) Comment on above: Performed By: #### G FR, ANEU, LIPID, CBC, CMP, ADIFF, PSA #### [address] [address] Calcium [Mass/Vol] 9.4 mg/dL Normal 8.4-10.2 [facility] ([place]) Comment on above: Performed By: #### G FR, ANEU, LIPID, CBC, CMP, ADIFF, PSA #### [address] [address] Chloride [Moles/Vol] 99 mmol/L Normal 98-107 [facility] ([place]) Comment on above: Performed By: #### G FR, ANEU, LIPID, CBC, CMP, ADIFF, PSA #### [address] [address] CO2 [Moles/Vol] 25 mmol/L Normal 23-31 [facility] ([place]) Comment on above: Performed By: #### G FR, ANEU, LIPID, CBC, CMP, ADIFF, PSA #### [address] [address] Creatinine [Mass/Vol] 1.12 mg/dL Normal 0.70-1.30 [facility] ([place]) Comment on above: Performed By: #### G FR, ANEU, LIPID, CBC, CMP, ADIFF, PSA #### [address] [address] Electrolyte Balance 10.0 mEq/L Normal 4.0-15.0 [facility] ([place]) Comment on above: Performed By: #### G FR, ANEU, LIPID, CBC, CMP, ADIFF, PSA #### [address] [address] Globulin 3.7 G/dL Normal [facility] ([place]) Comment on above: Performed By: #### G FR, ANEU, LIPID, CBC, CMP, ADIFF, PSA #### [address] [address] Glucose [Mass/Vol] 216 mg/dL High 80-115 [facility] ([place]) Comment on above: Performed By: #### G FR, ANEU, LIPID, CBC, CMP, ADIFF, PSA #### [address] [address] Potassium [Moles/Vol] 4.0 mmol/L Normal 3.5-5.1 [facility] ([place]) Comment on above: Performed By: #### G FR, ANEU, LIPID, CBC, CMP, ADIFF, PSA #### [address] [address] Sodium [Moles/Vol] 134 mmol/L Low 136-145 [facility] ([place]) Comment on above: Performed By: #### G FR, ANEU, LIPID, CBC, CMP, ADIFF, PSA #### [id number] [place], [place] [address] Total Protein 7.2 G/dL Normal 6.4-8.2 [facility] ([place]) Comment on above: Performed By: #### G FR, ANEU, LIPID, CBC, CMP, ADIFF, PSA #### [address] [address] Urea nitrogen [Mass/Vol] 15 mg/dL Normal 7-18 [facility] ([place]) Comment on above: Performed By: #### G FR, ANEU, LIPID, CBC, CMP, ADIFF, PSA #### [address] [address] LIPIDon 05-14-2024 Cholesterol [Mass/Vol] 195 mg/dL Normal 0-200 [facility] ([place]) Comment on above: Result Comment: Chol esterol Reference Interval: Less than 200 Desirable 200-239 Borderline high risk 240 and above High risk Performed By: #### G FR, ANEU, LIPID, CBC, CMP, ADIFF, PSA #### [address] [address] Cholesterol in HDL [Mass/Vol] 35 mg/dL Low 40-60 [facility] ([place]) Comment on above: Performed By: #### G FR, ANEU, LIPID, CBC, CMP, ADIFF, PSA #### [address] [address] Cholesterol in LDL [Mass/Vol] 103 mg/dL Normal 0-130 [facility] ([place]) Comment on above: Performed By: #### G FR, ANEU, LIPID, CBC, CMP, ADIFF, PSA #### [address] [address] Triglyceride [Mass/Vol] 284 mg/dL High 0-150 [facility] ([place]) Comment on above: Result Comment: Trig lyceride Reference Interval: Less than 150 Normal 150-199 Borderline high risk 200-499 High risk 500 or higher Very high risk Performed By: #### G FR, ANEU, LIPID, CBC, CMP, ADIFF, PSA #### [address] [place], [place] [address] PSAon 05-14-2024 Prostate Specific Antigen 0.90 ng/mL Normal 0.00-4.00 [facility] ([place]) Comment on above: Performed By: #### G FR, ANEU, LIPID, CBC, CMP, ADIFF, PSA #### [facility] [address] [place], [place] [address] CT THORAX SCREENING W/O CONT RASTon 02-29-2024 [...] Date: 02/29/2024 9:41:38 AM Ordering Provider: CAMDEN BRIONES [facility] ([place]) Glucose Glucometer (BldC) [M ass/Vol]Ordered By: Chary Fontaine on 08-28-2023 Glucose [Mass/Vol] 119 mg/dL 74-106 [facility] Comment on above: MANAGEMENT OF PATIEN T CARE PER NURSING PROTOCOL Absolute lymphocyte countOrd ered By: Aaron Jacques on 08-21-2023 Lymphocytes Auto (Unsp spec) [#/Vol] 4.97 10*3/uL 0.83-4.51 [facility] Basophil percentageOrdered B y: Aaron Jacques on 08-21-2023 Basophils/100 WBC (Bld) 0.5 % 0-1 [facility] Chloride [Moles/Vol] 108 mmol/L 98-107 [facility] Eosinophils/100 WBC (Bld) 2.3 % 0-5 [facility] Glucose [Mass/Vol] 197 mg/dL 74-106 [facility] Comment on above: Fasting Glucose resu lt greater than or equal to 126 mg/dL suggests DIABETES MELLITUS per A.D.A. criteria. Neutrophils (Bld) [#/Vol] 6.4 10*3/uL 2.0-7.7 [facility] Neutrophils/100 WBC (Bld) 50.3 % 47-70 [facility] Potassium [Moles/Vol] 3.6 mmol/L 3.5-5.1 [facility] Sodium [Moles/Vol] 139 mmol/L 136-145 [facility] WBC (Bld) [#/Vol] 12.8 10*3/uL 4.4-11.0 [facility] Blood erythrocytes count (nu mber/volume)Ordered By: Aaron Jacques on 08-21-2023 RBC (Bld) [#/Vol] 5.15 10*6/uL 4.6-6.2 [facility] Blood hemoglobin measurement (mass/volume)Ordered By: Aaron Jacques on 08-21-2023 Hemoglobin (Bld) [Mass/Vol] 14.5 g/dL 13.0-16.5 [facility] Blood lymphocytes/100 leukoc ytesOrdered By: Aaron Jacques on 08-21-2023 Lymphocytes/100 WBC (Bld) 38.8 % 19-41 [facility] Blood monocytes/100 leukocyt esOrdered By: Aaron Jacques on 08-21-2023 Monocytes/100 WBC (Bld) 7.9 % 0-10 [facility] Blood platelet mean volumeOr dered By: Aaron Jacques on 08-21-2023 Platelet mean volume (Bld) [Entitic vol] 9.2 fL 6.2-12.0 [facility] Determination of erythrocyte mean corpuscular volume (MCV)Ordered By: Aaron Jacques on 08-21-2023 MCV (RBC) [Entitic vol] 86.6 fL 80-94 [facility] Hematocrit Auto (Bld) [Volum e fraction]Ordered By: Aaron Jacques on 08-21-2023 Hematocrit (Bld) [Volume fraction] 44.6 % 40-54 [facility] Laboratory - Chemistry and C hemistry - challengeOrdered By: Aaron Jacques on 08-21-2023 CO2 [Moles/Vol] 25.0 mmol/L 21.0-32.0 [facility] Urea nitrogen/Creatinine [Mass ratio] 10.3 mg/mg 10-20 [facility] Laboratory - Hematology and Cell countsOrdered By: Aaron Jacques on 08-21-2023 Erythrocyte distribution width (RBC) [Entitic vol] 46.4 fL 35.1-43.9 [facility] Erythrocyte distribution width (RBC) [Ratio] 14.5 % 11.6-14.6 [facility] Immature granulocytes/100 WBC (Bld) 0.200 % 0.0-0.9 [facility] Comment on above: IG% - Immature Granu locytes (promyelocytes, myelocytes and metamyelocytes) > 1% indicates that a LEFT SHIFT is Present. MCH (RBC) [Entitic mass] 28.2 pg 27.0-32.0 [facility] Nucleated RBC/100 WBC (Bld) [Ratio] 0 % 0-5 [facility] MCHC Auto (RBC) [Mass/Vol]Or dered By: Aaron Jacques on 08-21-2023 MCHC (RBC) [Mass/Vol] 32.5 g/dL 32-36 [facility] No Panel InformationOrdered By: Aaron Jacques on 08-21-2023 Estimated GFR (MDRD) Amer 80 mL/min >60 [facility] Comment on above: GFR Calc Estimated GFR (MDRD) Non-Af Amer 66 mL/min >60 [facility] Comment on above: Non- GFR Calc Platelets bldOrdered By: Isabell Jacques on 08-21-2023 Platelets (Bld) [#/Vol] 334 10*3/uL 150-450 [facility] Serum or plasma calcium ricky urement (mass/volume)Ordered By: Aaron Jacques on 08-21-2023 Calcium [Mass/Vol] 9.2 mg/dL 8.5-10.1 [facility] Serum or plasma creatinine m easurement (mass/volume)Ordered By: Aaron Jacques on 08-21-2023 Creatinine [Mass/Vol] 1.17 mg/dL 0.70-1.30 [facility] Comment on above: The validity of the calculated GFR & GFRAA in patients over 70 years has not been determined. Clinical correlation is essential. Serum or plasma urea nitroge n measurement (mass/volume)Ordered By: Aaron Jacques on 08-21-2023 Urea nitrogen [Mass/Vol] 12 mg/dL 7-18 [facility] Thin prep Papanicolaou smear with manual screeningOrdered By: Aaron Jacques on 08-21-2023 Thin prep Papanicolaou smear with manual screening 6 5-15 [facility] Whole blood hemoglobin A1c/t otal hemoglobin ratio (mass fraction)Ordered By: Aaron Jacques on 09-25-2023 HbA1c (Bld) [Mass fraction] 6.2 % 3.8-5.6 [facility] Comment on above: Normal < [...] [Mass ratio] 11 ratio Invalid Interpretation Code ratio AO ADM SS LABORATORYOrdered By: SYSTEM SYSTEM on 11-22-2021 GFR 81 ml/min/1.73sqm Invalid Interpretation Code AO Chemistry S GFR Non- 66 ml/min/1.73sqm Invalid Interpretation Code AO Chemistry S LABORATORYOrdered By: Dennis Hou on 11-22-2021 HbA1c (Bld) [Mass fraction] 6.8 % Invalid Interpretation Code 4.3 - 6.4 % AO ADM SS ED NOTEon 09-03-2019 ED NOTE HNO ID: [id number] Author: Ambika BruceRnTay Melchor RN Service: Emergency [...] DATE: September 04, 2019 TIME: 2:00 PM [facility] ED NOTE HNO ID: [id number] Author: Edith BruceRn) LUZ Gorman Service: ? Author Type: Registered Nurse Type: ED Notes Filed: 09/03/2019 12:42 PM Note Text: Pt to room from radiology Normal [facility] ED NOTE HNO ID: [id number] Author: Edith Gorman RN Service: ? Author Type: Registered Nurse Type: ED Notes Filed: 09/03/2019 12:30 PM Note Text: Pt ambulatory to radiology Normal [facility] ED NOTE HNO ID: [id number] Author: Edith Gorman RN Service: ? Author Type: Registered Nurse Type: ED Notes Filed: 09/03/2019 12:20 PM Note Text: Patient informed: the name of medication, why we are giving it, possible side effects, what they may expect to feel, and was offered a chance to ask questions, prior to the administration of Keflex, Motrin Normal [facility] ED NOTE HNO ID: [id number] Author: Loco BruceRnTay Chatman RN Service: Emergency Medicine Author Type: Registered Nurse Type: ED Notes Filed: 09/03/2019 11:57 AM Note Text: Left hand and wrist pain for 3 days denies any injury Normal [facility] ED PROV NOTEon 09-03-2019 ED PROV NOTE HNO ID: [id number] Author: Dennis Canales MD Service: Emergency Medicine [...] 1248 Dennis Canales MD 09/03/19 1315 Normal [facility] Office Visit: [facility] 04-13-20 17 Documentation of current medications (procedure) Done Invalid Interpretation Code Alexis [facility] Phone: [phone] Smoking cessation education (procedure) yes Invalid Interpretation Code [email or web address] Work Phone: [phone] Tobacco use [facility] Current every day smoker Invali d Interpretation Code Alexis Bittar Phone: [phone] Office Visiton 10-12-2016 Dietary management education, guidance, and counseling (procedure) yes Invalid Interpretation Code [email or web address] Work Phone: [phone] Lab Reporton 09-19-2016 Chloride 106 mmol/L Invalid Interpretation Code [email or web address] Work Phone: [phone] CO2 25.8 mmol/L Invalid Interpretation Code [email or web address] Work Phone: [phone] Creatinine 1.10 mg/dL Invalid Interpretation Code [email or web address] Work Phone: [phone] Urea nitrogen 13 mg/dL Invalid Interpretation Code [email or web address] Work Phone: [phone] Potassium 4.4 mmol/L Invalid Interpretation Code [email or web address] Work Phone: [phone] Sodium 141 mmol/L Invalid Interpretation Code [place] [email or web address] Work Phone: [phone] Cholesterol 192 mg/dL Invalid Interpretation Code [facility] [email or web address] Work Phone: [phone] HDL Cholesterol 33 mg/dL Invalid Interpretation Code [place] [email or web address] Work Phone: [phone] LDL Cholesterol 117 mg/dL Invalid Interpretation Code [email or web address] Work Phone: [phone] Triglyceride 210 mg/dL Invalid Interpretation Code [email or web address] Work Phone: [phone] Replaced Document: Scotty JENNINGS Observationson 04-05-2016 electrocardiogram interpretation Sinus Rhythm WITHIN NORMAL LIMITS Invalid Interpretation Code [email or web address] Work Phone: [phone] GE use only - for [employer] import when terms are not otherwise specified 379 ms Invalid Interpretation Code Alexis Bittar Phone: [phone] P wave axis, electrocardiogram 47 deg Invalid Interpretation Code [place] [email or web address] Work Phone: [phone] DC interval, electrocardiogram 162 ms Invalid Interpretation Code [email or web address] Work Phone: [phone] Pulse (Heart Rate) 77 /min Invalid Interpretation Code [email or web address] Work Phone: [phone] QRS axis, electrocardiogram 21 deg Invalid Interpretation Code [email or web address] Work Phone: [phone] QRS duration, electrocardiogram 96 ms Invalid Interpretation Code [place] [email or web address] Work Phone: [phone] QT interval, electrocardiogram new path ms Invalid Interpretation Code [email or web address] Work Phone: [phone] T wave axis, electrocardiogram 42 deg Invalid Interpretation Code [email or web address] Work Phone: [phone] Clinical Lists Update: Prelo 03-31-2016 Left ventricular Ejection fraction 60 % Invalid Interpretation Code [email or web address] Work Phone: [phone] Clinical Lists Update: Pre rail walker 03-04-2016 Anion gap 11.1 mmol/L Invalid Interpretation Code [email or web address] Work Phone: [phone] BUN/Creatinine Ratio 11.9 mg/mg Invalid Interpretation Code [email or web address] Work Phone: [phone] Calcium 9.9 mg/dL Invalid Interpretation Code [email or web address] Work Phone: [phone] Glucose 99 mg/dL Invalid Interpretation Code [facility] Work Phone: [phone] HbA1c 6.2 % Invalid Interpretation Code [facility] Work Phone: [phone] Office Visit: [facility] 03-17-20 15 cardiac risk group C Invalid Interpretation Code [facility] Work Phone: [phone] General cardiovascular disease 10Y risk [#] [place].Lucius'Agostelizabeth N/A Invalid Interpretation Code [facility] Work Phone: [phone] Tobacco smoking status NHIS Former Invalid Interpretation Code [facility] Work Phone: [phone] Clinical Lists Update: Prelo rail walker 09-23-2014 Cholesterol to HDL Ratio 5.9 {ratio} Invalid Interpretation Code [facility] Work Phone: [phone] Lab Report: BMPon 05-27-2014 eGFR (non-black) 66 mL/min/{1.73_m2} Normal >60 [facility] Work Phone: [phone] eGFR (non-black) 80 mL/min/{1.73_m2} Normal >60 [facility] Work Phone: [phone] Lab Report: CBCDon 4 Absolute Neutrophil count 6.6 X10 3/UL Normal 2.0-7.7 [facility] Work Phone: [phone] Basophils/100 leukocytes 0.3 % Normal 0-1 [facility] Work Phone: [phone] Eosinophils/100 leukocytes 2.0 % Normal 0-5 [facility] Work Phone: [phone] Erythrocytes (RBC) 5.34 10*6/uL Normal 4.6-6.[address] [facility] Work Phone: [phone] Hematocrit (HCT) 44.3 % Normal 40-54 [facility] Work Phone: [phone] Hemoglobin (HGB) 14.9 g/dL Normal 13.0-16.5 [facility] Work Phone: [phone] Lymphocytes/100 leukocytes 36.7 % Normal 19-41 [facility] Work Phone: [phone] MCH 27.9 pg Normal 27.0-32.0 [facility] Work Phone: [phone] MCHC 33.6 G/GL Normal 32-36 [facility] Work Phone: [phone] MCV 83.0 fL Normal 80-94 [facility] Work Phone: [phone] Monocytes/100 leukocytes 9.0 % Normal 0-10 [facility] Work Phone: [phone] Neutrophils/100 leukocytes 51.8 % Normal 47-70 [facility] Work Phone: [phone] Platelets 327 10*3/mm3 Normal 150-450 [facility] Work Phone: [phone] PMV by Colin-[place]sm[place] 9.5 fL Normal 6.2-12.0 [facility] Work Phone: [phone] WBC (Leukocytes) 12.8 10*3/uL High 4.4-11.0 [employer] [facility] Work Phone: [phone]) Lab Report: BIDon 03-18-2013 Bilirubin (direct) 0.06 mg/dL Normal 0.00-0.30 [employer] Work Phone: [phone]) Lab Report: CMPon 03-18-2013 Alanine aminotransferase (ALT) 19 U/L Normal 12-78 [facility] Work Phone: [phone] Albumin 3.5 g/dL Normal 3.4-5.0 [facility] Work Phone: [phone] Alkaline phosphatase (ALP) 55 U/L Normal 50-136 [facility] Work Phone: [phone] Aspartate aminotransferase (AST) 15 U/L Normal 15-37 [facility] Work Phone: [phone] Bilirubin (total) 0.30 mg/dL Normal 0.00-1.00 [facility] Work Phone: [phone] Lab Report: LIPIDon 03-18-20 13 very low density lipoproteins 57 mg/dL High 5-40 [facility] Work Phone: [phone] Replaced Document: Scotty Salmon CG Observationson 03-11-2013 Pulse (Heart Rate) 379 ms Invalid Interpretation Code [facility] Work Phone: [phone]) Lab Report: TROPon 04-20-201 2 Troponin I ng/mL Normal <0.06 [facility] Work Phone: Vital Signs Date Time Vital Sign Value Performing Clinician Facility 06-03-2025 08:20-0400 Body height 167.[address] Camden Briones DO Work Phone: [facility] 06-03-2025 08:20-0400 Body mass index (BMI) [Ratio] 27.2 kg/m2 Dr. Camden Briones DO Work Phone: [facility] 06-03-2025 08:20-0400 Body temperature 98 [degF] Dr. Camden Briones DO Work Phone: [facility] 06-03-2025 08:20-0400 Body weight 76.[address] Camden Briones DO Work Phone: [facility] 06-03-2025 08:20-0400 Diastolic blood pressure 86 mm[Hg] Dr. Camden Briones DO Work Phone: [facility] 06-03-2025 08:20-0400 Heart rate 86 /min Dr. Camden Briones DO Work Phone: [facility] 06-03-2025 08:20-0400 Respiratory rate 16 /min Dr. Camden Briones DO Work Phone: [facility] 06-03-2025 08:20-0400 SaO2% (BldA) [Mass fraction] 98 % Dr. Camden Briones DO Work Phone: [facility] 06-03-2025 08:20-0400 Systolic blood pressure 127 mm[Hg] Dr. Camden Briones DO Work Phone: [facility] 06-02-2025 13:58-0400 Body height 167.[address] Camden Briones DO Work Phone: [facility] 06-02-2025 13:58-0400 Body mass index (BMI) [Ratio] 27 kg/m2 Dr. Camden Briones DO Work Phone: [facility] 06-02-2025 13:58-0400 Body weight 75.[address] Camden Briones DO Work Phone: [facility] 05-19-2025 14:36-0400 Body temperature 97.7 [degF] Dr. Camden Briones DO Work Phone: [facility] 05-19-2025 14:36-0400 Diastolic blood pressure 64 mm[Hg] Dr. Camden Briones DO Work Phone: [facility] 05-19-2025 14:36-0400 Heart rate 90 /min Dr. Camden Briones DO Work Phone: [facility] 05-19-2025 14:36-0400 Respiratory rate 16 /min Dr. Camden Briones DO Work Phone: [facility] 05-19-2025 14:36-0400 SaO2% (BldA) [Mass fraction] 99 % Dr. Camden Briones DO Work Phone: [facility] 05-19-2025 14:36-0400 Systolic blood pressure 150 mm[Hg] Dr. Camden Briones DO Work Phone: [facility] 05-17-2025 16:55-0400 Body height 167.[address] Camden Briones DO Work Phone: [facility] 05-17-2025 16:55-0400 Body mass index (BMI) [Ratio] 27.8 kg/m2 Dr. Camden Briones DO Work Phone: [facility] 05-17-2025 16:55-0400 Body weight 78.[address] Camden Briones DO Work Phone: [facility] 05-17-2025 15:03-0400 Body temperature 97.8 [degF] Dr. Camden Briones DO Work Phone: [facility] 05-17-2025 15:03-0400 Diastolic blood pressure 81 mm[Hg] Dr. Camden Briones DO Work Phone: [facility] 05-17-2025 15:03-0400 Heart rate 81 /min Dr. Camden Briones DO Work Phone: [facility] 05-17-2025 15:03-0400 Respiratory rate 18 /min Dr. Camden Briones DO Work Phone: [facility] 05-17-2025 15:03-0400 SaO2% (BldA) [Mass fraction] 99 % Dr. Camden Briones DO Work Phone: [facility] 05-17-2025 15:03-0400 Systolic blood pressure 179 mm[Hg] Dr. Camden Briones DO Work Phone: [facility] 05-17-2025 13:47-0400 Body height 167.[address] Camden Briones DO Work Phone: [facility] 05-17-2025 13:47-0400 Body mass index (BMI) [Ratio] 27.8 kg/m2 Dr. Camden Briones DO Work Phone: [facility] 05-17-2025 13:47-0400 Body weight 78.[address] Camden Briones DO Work Phone: [facility] 10-21-2024 09:56-0500 Diastolic Blood Pressure Non-Invasive 72 mm[Hg] DR LOCO WILDE MD [facility] 10-21-2024 09:56-0500 Heart rate 77 /min DR LOCO WILDE MD [facility] 10-21-2024 09:56-0500 Systolic Blood Pressure Non-Invasive 122 mm[Hg] DR LOCO WILDE MD [facility] 10-21-2024 09:51-0500 Diastolic Blood Pressure Non-Invasive 79 mm[Hg] DR LOCO WILDE MD [facility] 10-21-2024 09:51-0500 Heart rate 76 /min DR LOCO WILDE MD [facility] 10-21-2024 09:51-0500 Systolic Blood Pressure Non-Invasive 125 mm[Hg] DR LOCO WILDE MD [facility] 10-21-2024 09:47-0500 Diastolic Blood Pressure Non-Invasive 74 mm[Hg] DR LOCO WILDE MD [facility] 10-21-2024 09:47-0500 Heart rate 73 /min DR LOCO WILDE MD [facility] 10-21-2024 09:47-0500 Systolic Blood Pressure Non-Invasive 103 mm[Hg] DR LOCO WILDE MD [facility] 10-21-2024 09:38-0500 Body temperature 97.52 [degF] DR LOCO IWLDE MD [facility] 10-21-2024 09:35-0500 Respiratory Rate - Anes 0 br/min DR LOCO WILED MD [facility] 10-21-2024 09:30-0500 Respiratory Rate - Anes 0 br/min DR LOCO WILDE MD [facility] 10-21-2024 07:54-0500 Body height 167.[address] LOCO WILDE MD [facility] 10-21-2024 07:54-0500 Body temperature 97.16 [degF] DR LOCO WILDE MD [facility] 10-21-2024 07:54-0500 Body weight 76.[address] LOCO WILDE MD [facility] 10-21-2024 07:54-0500 Heart rate 74 /min DR LOCO WILDE MD [facility] 10-21-2024 07:54-0500 Respiratory rate 13 /min DR LOCO WILDE MD [facility] 10-21-2024 07:49-0500 Body height 167.[address] LOCO WILDE MD [facility] 08-28-2023 14:50-0400 Body temperature 97.9 [degF] Dr. Camden Briones Work Phone: [facility] 08-28-2023 14:50-0400 Diastolic blood pressure 64 mm[Hg] Dr. Camden Briones Work Phone: [facility] 08-28-2023 14:50-0400 Heart rate 77 /min Dr. Camden Briones Work Phone: [facility] 08-28-2023 14:50-0400 Respiratory rate 14 /min Dr. Camden Briones Work Phone: [facility] 08-28-2023 14:50-0400 SaO2% (BldA) [Mass fraction] 97 % Dr. Camden Briones Work Phone: [facility] 08-28-2023 14:50-0400 Systolic blood pressure 130 mm[Hg] Dr. Camden Briones Work Phone: [facility] 08-28-2023 11:46-0400 Body height 170.[address] Camden Briones Work Phone: [facility] 08-28-2023 11:46-0400 Body mass index (BMI) [Ratio] 25 kg/m2 Dr. Camden Briones Work Phone: [facility] 08-28-2023 11:46-0400 Body weight 72.[address] Camden Briones Work Phone: [facility] 08-07-2023 14:09-0400 Body mass index (BMI) [Ratio] 26.5 kg/m2 Dr. Camden Briones Work Phone: [facility] 08-07-2023 14:09-0400 Body weight 74.[address] Camden Briones Work Phone: [facility] 08-07-2023 14:09-0400 Diastolic blood pressure 91 mm[Hg] Dr. Camden Briones Work Phone: [facility] 08-07-2023 14:09-0400 Heart rate 67 /min Dr. Camden Briones Work Phone: [facility] 08-07-2023 14:09-0400 Respiratory rate 17 /min Dr. Camden Briones Work Phone: [facility] 08-07-2023 14:09-0400 SaO2% (BldA) [Mass fraction] 97 % Dr. Camden Briones Work Phone: [facility] 08-07-2023 14:09-0400 Systolic blood pressure 163 mm[Hg] Dr. Camden Briones Work Phone: [facility] 06-09-2023 09:42-0400 Body height 167.[address] Camden Briones Work Phone: [facility] 06-09-2023 09:42-0400 Body mass index (BMI) [Ratio] 26.8 kg/m2 Dr. Camden Briones Work Phone: [facility] 06-09-2023 09:42-0400 Body temperature 98 [degF] Dr. Camden Briones Work Phone: [facility] 06-09-2023 09:42-0400 Body weight 75.[address] Camden Briones Work Phone: [facility] 06-09-2023 09:42-0400 Diastolic blood pressure 78 mm[Hg] Dr. Camden Briones Work Phone: [facility] 06-09-2023 09:42-0400 Heart rate 71 /min Dr. Camden Briones Work Phone: [facility] 06-09-2023 09:42-0400 Respiratory rate 17 /min Dr. Camden Briones Work Phone: [facility] 06-09-2023 09:42-0400 Systolic blood pressure 134 mm[Hg] Dr. Camden Briones Work Phone: [facility] 04-28-2023 12:59-0400 Body mass index (BMI) [Ratio] 26.3 kg/m2 Dr. Camden Briones Work Phone: [facility] 04-28-2023 12:59-0400 Body weight 73.[address] Camden Briones Work Phone: [facility] 04-28-2023 12:59-0400 Diastolic blood pressure 67 mm[Hg] Dr. Camden Briones Work Phone: [facility] 04-28-2023 12:59-0400 Heart rate 86 /min Dr. Camden Briones Work Phone: [facility] 04-28-2023 12:59-0400 Respiratory rate 18 /min Dr. Camden Briones Work Phone: [facility] 04-28-2023 12:59-0400 SaO2% (BldA) [Mass fraction] 95 % Dr. Camden Briones Work Phone: [facility] 04-28-2023 12:59-0400 Systolic blood pressure 106 mm[Hg] Dr. Camden Briones Work Phone: [facility] 04-13-2017 12:59-0400 BMI (Body Mass Index) 26.5 kg/m2 [facility] Work Phone: 04-13-2017 12:59-0400 [...] Date Encounter Type Care Provider Facility Start: 06-03-2025 End: 06-03-[address] Camden Briones DO Work Phone: -[facility] Start: 06-03-2025 End: 06-03-2025 Patient encounter procedure Martha HORTON -[facility] Work Phone: Start: 06-02-2025 End: 06-02-2025 ambulatory [facility] Facility[facility] Start: 06-02-2025 End: 06-02-[address] Dom Gonzales MD -[facility] Work Phone: Start: 05-27-2025 End: 05-27-[address] Camden Flores MD -Laboratory Specimen Work Phone: Start: 05-27-2025 End: 05-27-[address] [facility] Facility:[facility] Start: 05-19-2025 Non-patient / Non-visit Dr. Matti Gonzales MD -[facility] Start: 05-19-2025 Non-patient / Non-visit Dr. Aaron abarca Located within [facility] Work Phone: Start: 05-18-2025 Non-patient / Non-visit Dr. Aaron abarca Located within [facility] Work Phone: Start: 05-17-2025 ambulatory Erickson Mario ility:[facility] Start: 05-17-2025 End: 05-19-2025 Evaluation and management of inpatient Dr. Aaron Razo DO -Medical Surgical 3 Work Phone: Start: 05-17-2025 Non-patient / Non-visit Dr. Matti Gonzales MD -[facility] Start: 05-17-2025 Admission to [facility] surgery center Dr. Erickson Robbins DO -[facility] Work Phone: Start: 05-17-[address] Camden saunders DO Work Phone: [facility] Work Phone: Start: 04-28-2025 End: 04-28-2025 Telephone encounter Yesenia Boudreaux MD Work Phone: [facility] Start: 04-23-2025 End: 04-23-2025 Telephone encounter Yesenia Boudreaux MD Work Phone: [facility] Comment on above: Future Appointment ( Attempt to reschedule esophageal manometry ) Start: 03-17-2025 End: 03-17-2025 Telephone encounter Yesenia Boudreaux MD Work Phone: [facility] Comment on above: Future Appointment ( Reschedule manometry/) Start: 03-11-2025 End: 03-11-[address] Camden Briones DO Work Phone: [facility] Work Phone: Start: 03-11-2025 End: 03-11-[address] Camden Briones DO -[facility] Start: 03-11-2025 End: 03-11-2025 ambulatory Camden Padrony Facility:[facility] Start: 02-27-2025 End: 02-27-2025 ambulatory CAMDEN BRIONES DO Facility:[facility] Start: 12-11-2024 End: 12-11-2024 Telephone encounter Yesenia Boudreaux MD Work Phone: [facility] Start: 12-11-2024 End: 12-11-[address] Loco Wilde MD -[facility], [facility] Work Phone: Start: 12-11-2024 End: 12-11-2024 ambulatory Loco Wilde Facility:[facility] Start: 12-02-2024 End: 12-02-2024 Telephone encounter Yesenia Boudreaux MD Work Phone: [facility] Comment on above: Future Appointment ( Plavix instructions) Start: 11-29-2024 End: 11-29-2024 Telephone encounter Yesenia Boudreaux MD Work Phone: [facility] Comment on above: clearance/medication recommendation Start: 11-12-2024 End: 11-12-2024 Telephone encounter Yesenia Boudreaux MD Work Phone: [facility] Comment on above: Future Appointment ( Esophageal manometry/) Start: 10-31-2024 End: 10-31-2024 ambulatory CAMDEN BRIONES DO Facility:[facility] Start: 10-31-2024 End: 10-31-2024 Patient encounter procedure CAMDEN BRIONES DO [facility] Start: 10-21-2024 End: 10-21-[address] LOCO WILDE MD Facility:[facility] Start: 10-21-2024 End: 10-21-[address] LOCO WILDE MD [facility] Start: 05-14-2024 End: 05-14-2024 ambulatory CAMDEN BRIONES DO Facility:[facility] Start: 02-27-2024 End: 02-27-2024 ambulatory CAMDEN BRIONES DO Facility:[facility] Start: 02-27-2024 End: 02-27-2024 Patient encounter procedure CAMDEN BRIONES DO [facility] Start: 08-28-2023 Non-patient / Non-visit Dr. Litzy Briones Work Phone: [facility] Start: 08-28-2023 End: 08-28-2023 Admission to same day surgery center Dr. Camden [facility]iones [facility] Start: 08-28-2023 End: 08-28-[address] Camden Briones Work Phone: [facility] Work Phone: Start: 08-07-2023 End: 08-07-[address] Camden Briones Work Phone: [facility] Work Phone: Start: 06-30-2023 Non-patient / Non-visit Dr. Litzy Briones Work Phone: [facility] Start: 06-30-2023 End: 06-30-[address] Camden Briones Work Phone: [facility] Work Phone: Start: 06-30-2023 End: 06-30-[address] Camden Briones Work Phone: [facility] Work Phone: Start: 06-13-2023 End: 06-13-[address] Camden Briones Work Phone: [facility] Work Phone: Start: 06-13-2023 End: 06-13-[address] [facility] Work Phone: Start: 06-09-2023 End: 06-09-[address] Camden Briones Work Phone: [facility] Work Phone: Start: 04-28-2023 End: 04-28-[address] Camden Briones Work Phone: [facility] Work Phone: Start: 11-08-2022 End: 11-08-2022 Patient encounter procedure CAMDEN BRIONES DO [facility] Start: 11-22-2021 End: 11-22-2021 Patient encounter procedure CAMDEN BRIONES DO [facility] Procedures Date Procedure Procedure Detail Performing Clinician Start: 05-19-[address] Camden Briones DO Work Phone: Start: 05-17-[address] Camden Briones DO Work Phone: Start: 05-17-[address] Camden Briones DO Work Phone: Start: 05-17-2025 Gram stain microscopy D jeramie Briones DO Work Phone: Start: 05-17-2025 Microbial culture, b sudhir fluid Dr. Camden Briones DO Work Phone: Start: [...] CAMDEN BRIONES DO Comment on above: right eye-nahomy ey [...] End: 10-05-2015 Follow Up Appt 6 months Giels Peters MD Start: 10-05-2015 End: 10-18-2016 Follow [...] BRIONES DO Start: 11-27-2009 Placement of stent WILLIAN BRIONES DO Comment on above: multiple stents Tonsillectomy CAMDEN BRIONES DO Plan of Treatment Date Care Activity Detail Author Start: 2031 RSV Vaccine (1 - 1-dose 75+ series) RSV Vaccine (1 - 1-dose 75+ series) [facility] Start: 07-28-2025 Influenza vaccination Influenza Vaccine (Season Ended) [facility] Start: 06-03-2025 Complete blood count [facility] Start: 05-19-2025 Patient discharge [facility] Start: 05-19-2025 Referral to service [facility] Start: 05-18-2025 [facility] Start: 05-18-2025 Consultation [facility] Start: 05-17-2025 Following clinical pathway protocol [facility] Start: 05-17-2025 Assessment of risk of venous thromboembolism [facility] Start: 05-17-2025 Care regimes management [facility] Start: 05-17-2025 Consultation [facility] Start: 05-17-2025 Insertion of catheter into peripheral vein [facility] Start: 05-17-2025 Measuring intake and output [facility] Start: 05-17-2025 Notification of physician [facility] Start: 05-17-2025 Oxygen therapy [facility] Start: 05-17-2025 Providing care according to standard [facility] Start: 05-17-2025 Referral to occupational therapist [facility] Start: 05-17-2025 Referral to service [facility] Start: 05-17-2025 End: 05-17-2025 [facility] Start: 05-17-2025 Admission procedure [facility] Start: 05-17-2025 Arthroscopy of knee Arthroscopy, Knee (Left) [facility] Start: 05-17-2025 Anaerobic Culture Anaerobic Culture [facility] Start: 05-17-2025 Anaerobic microbial culture Anaerobic Culture [facility] Start: 05-17-2025 Body Fluid Culture Body Fluid Culture [facility] Start: 05-17-2025 Hospital admission, emergency, from emergency room, medical nature [facility] Start: 05-17-2025 End: 05-17-2025 Microbial culture, body fluid [facility] Start: 02-28-2025 Subsequent hospital visit by physician 02/28/2025 Hospital Encounter [facility] [address] [place] [address] Yesenia Boudreaux MD [address] [place] [address] Dysphagia, unspecified type [R13.10] [facility] Comment on above: Dysphagia, unspecified type [R13.10] Start: 12-12-2024 End: 12-12-2024 Admission to same day surgery center 12/12/2024 10:00 AM EST - 12/12/2024 11:00 AM EST Surgery [facility] [address] [place] [address] Yesenia Boudreaux MD [address] [place], [place] [id number] ESOPHAGEAL MANOMETRY [facility] Comment on above: ESOPHAGEAL MANOMETRY Start: 12-12-2024 End: 12-12-2024 Esophageal motility study w/interp&rpt ESOPHAGEAL MANOMETRY Dysphagia, unspecified type 12/12/2024 10:00 AM EST [facility] Start: 12-12-2024 Subsequent hospital visit by physician 12/12/2024 10:00 AM EST Hospital Encounter [facility] [address] [place] [address] Yesenia Boudreaux MD [address] [address] [place] [address] Dysphagia, unspecified type [R13.10] [facility] Comment on above: Dysphagia, unspecified type [R13.10] Start: 11-27-2024 Advance Directive Discussion Advance Directive Discussion [facility] Start: 07-28-2024 Covid-19 Vaccine ( season) Covid-19 Vaccine ( season) [facility] Start: 07-28-2024 Influenza vaccination Influenza Vaccine (#1) [facility] Start: 11-27-2023 Advance Directive Discussion Advance Directive Discussion [facility] Start: 08-28-2023 Patient discharge [facility] Start: 11-29-2017 End: 11-29-2017 Appointment Appointment [facility] Work Phone: Start: 04-13-2017 End: 04-13-2017 Follow Up Appt 6 months Follow Up Appt 6 months [facility] Work Phone: Start: 04-13-2017 End: 04-13-2017 PFM PFM [facility] Work Phone: Start: 10-12-2016 End: 04-07-2017 Follow Up Appt 6 months Follow Up Appt 6 months [facility] Work Phone: Start: 10-12-2016 End: 04-07-2017 Follow Up Appt Other Follow Up Appt Other [facility] Work Phone: Start: 10-12-2016 End: 04-07-2017 MMM MMM [facility] Work Phone: Start: 04-05-2016 End: 04-05-2016 Follow Up Appt 6 months Follow Up Appt 6 months [facility] Work Phone: Start: 04-05-2016 End: 10-18-2016 Follow Up Appt Other Follow Up Appt Other [facility] Work Phone: Start: 04-05-2016 End: 04-05-2016 PFM PFM [facility] Work Phone: Start: 10-05-2015 End: 10-05-2015 Follow Up Appt 6 months Follow Up Appt 6 months [facility] Work Phone: Start: 10-05-2015 End: 10-18-2016 Follow Up Appt Other Follow Up Appt Other [facility] Work Phone: Start: 10-05-2015 End: 10-05-2015 MMM MMM [facility] Work Phone: Start: 09-17-2015 End: 10-18-2016 *Hepatic Function Panel *Hepatic Function Panel [facility] Work Phone: Start: 09-17-2015 End: 10-18-2016 Lipid panel [AGGREGATE] *Lipid Profile CC PCP [facility] Work Phone: Start: 03-17-2015 End: 03-17-2015 Electrocardiogram, complete EKG (In office) [facility] Work Phone: Start: 03-17-2015 End: 03-17-2015 Follow Up Appt 6 months Follow Up Appt 6 months [facility] [employer] Work Phone: Start: 03-17-2015 End: 03-17-2015 Follow Up Appt Other Follow Up Appt Other [facility] Work Phone: Start: 03-17-2015 End: 03-17-2015 PFM PFM [facility] Work Phone: Start: 09-15-2014 End: 03-29-2016 *Hepatic Function Panel *Hepatic Function Panel [employer] Work Phone: Start: 09-15-2014 End: 09-15-2014 Follow Up Appt 6 months Follow Up Appt 6 months [facility] Work Phone: Start: 09-15-2014 End: 03-04-2015 Follow Up Appt Other Follow Up Appt Other [facility] Work Phone: Start: 09-15-2014 End: 03-18-2015 Lipid panel [AGGREGATE] *Lipid Profile CC PCP [facility] Work Phone: Start: 09-15-2014 End: 09-15-2014 MMM MMM [facility] Work Phone: Start: 03-10-2014 End: 03-10-2014 Follow Up Appt 6 months Follow Up Appt 6 months [facility] Work Phone: Start: 03-10-2014 End: 03-10-2014 Follow Up Appt Other Follow Up Appt Other [facility] Work Phone: Start: 03-10-2014 End: 03-10-2014 Follow Up BP Check Follow Up BP Check [facility] Work Phone: Start: 03-10-2014 End: 03-10-2014 PFM PFM [facility] Work Phone: Start: 09-11-2013 End: 03-17-2014 *Hepatic Function Panel *Hepatic Function Panel [facility] Work Phone: Start: 09-11-2013 End: 09-11-2013 Follow Up Appt 6 months Follow Up Appt 6 months [facility] Work Phone: Start: 09-11-2013 End: 03-17-2014 Lipid panel [AGGREGATE] *Lipid Profile CC PCP [facility] Work Phone: Start: 09-11-2013 End: 09-11-2013 MMM MMM [facility] Work Phone: Start: 05-27-2013 End: 02-24-2014 *Hepatic Function Panel *Hepatic Function Panel [facility] Work Phone: Start: 05-27-2013 End: 02-24-2014 Lipid panel [AGGREGATE] *Lipid Profile [facility] Work Phone: Start: 03-11-2013 End: 03-25-2013 *Hepatic Function Panel *Hepatic Function Panel [facility] Work Phone: Start: 03-11-2013 End: 02-24-2014 Follow Up Appt 6 months Follow Up Appt 6 months [facility] Work Phone: Start: 03-11-2013 End: 03-25-2013 Lipid panel [AGGREGATE] *Lipid Profile [facility] Work Phone: Start: 03-11-2013 End: 02-24-2014 PFM PFM [facility] Work Phone: Start: 08-27-2012 End: 03-25-2013 *Hepatic Function Panel *Hepatic Function Panel [facility] Work Phone: Start: 08-27-2012 End: 02-27-2013 Follow Up Appt 6 months Follow Up Appt 6 months [facility] Work Phone: Start: 08-27-2012 End: 03-25-2013 Lipid panel [AGGREGATE] *Lipid Profile [facility] Phone: Start: 02-23-2012 End: 02-23-2012 Echocardiography Echocardiogram (complete) [facility] Phone: Start: 02-23-2012 End: 02-23-2012 Electrocardiogram, complete EKG (In office) [employer] Phone: Start: 02-23-2012 End: 02-27-2013 Follow Up Appt 6 months Follow Up Appt 6 months [employer] Phone: Start: 02-23-2012 End: 02-23-2012 Nuclear stress test -exercise Nuclear stress test -exercise [facility] Phone: Start: 2011 Prostate specific antigen measurement Prostate Cancer Screening Discussion [facility] Start: 2006 Pneumococcal Vaccine: 50+ (1 of 1 - PCV) Pneumococcal Vaccine: 50+ (1 of 1 - PCV) [facility] Start: 2006 Screening for malignant neoplasm of lung Lung Cancer Screening [facility] Start: 2006 Shingrix Vaccine (1 of 2) Shingrix Vaccine (1 of 2) [facility] Start: 2001 Diabetes Screening Diabetes Screening [facility] Start: 2001 Prostate specific antigen measurement Prostate Cancer Screening Discussion [facility] Start: 2001 Screening for malignant neoplasm of colon [facility] Start: 1991 Lipid panel Lipid Screening [facility] Start: 1975 Urine microalbumin profile DTaP,Tdap,Td Vaccine (1 - Tdap) [facility] Start: 1974 Anxiety Screening Anxiety Screening [facility] Start: 1974 Depression Screening Depression Screening [facility] Start: 1974 Hepatitis C screening Hepatitis C Screening [facility] Start: 1956 Abdominal aortic aneurysm screening Abdominal Aortic Aneurysm Screening [facility] Anion gap in Serum or Plasma [facility] Bacteria identified in Body fluid by Culture [facility] Bacteria identified in Unspecified specimen by Anaerobe culture [facility] BUN/Creatinine ratio [facility] Calcium [Mass/volume ] in Serum or Plasma [facility] Carbon dioxide, tota l [Moles/volume] in Central venous blood [facility] Creatinine [Mass/vol ume] in Serum or Plasma [facility] CT Chest WO contrast [facility] Electrocardiographic procedure [facility] Erythrocyte mean cor puscular volume determination [facility] Erythrocyte sediment ation rate [facility] Esophageal motility study w/interp&rpt ESOPHAGEAL MANOMETRY Dysphagia, unspecified type [facility] Glucose [Mass/volume ] in Serum or Plasma [facility] Hematocrit [Volume F raction] of Blood [facility] Hemoglobin [Mass/vol ume] in Blood [facility] Leukocytes [#/volume ] in Blood [facility] Mean corpuscular hem oglobin concentration determination [facility] Mean corpuscular hem oglobin determination [facility] Measurement of renal function [facility] Measurement of respi ratory function [facility] NM Heart Views W str ess and W radionuclide IV [facility] Pathologist review of results [facility] Patient Education [facility] [employer] Work Phone: Patient referral [facility] Work Phone: Platelets [#/volume] in Blood [facility] Potassium measurement [facility] Red blood cell count [facility] Red cell distributio n width determination [facility] Serum chloride measurement [facility] Sodium measurement [facility] Urea nitrogen [Mass/ volume] in Serum or Plasma [facility] Vancomycin [Mass/vol ume] in Serum or Plasma --trough [facility] Immunizations Immunization Date Immunization Notes Care Provider Vince quezada 04-22-2021 SARS-CoV-2 (COVID-19 ) mRNA-1273 vaccine CAMDEN GUERREROSAY DO [facility] 03-25-2021 SARS-CoV-2 (COVID-19 ) mRNA-1273 vaccine CAM[address] ANSELMO DO [facility] Payers Date Payer Category Payer Unknown [id number] 2024 Self-pay [id number] 2024 Private Health Insurance [id number] 2024 Medicaid [id number] 2024 Medicare AETNA MEDICARE A ETNA MEDICARE ASSURE HMO D SNP [id number] 2024-Present [phone] [address] [place] [address] Medicare [id number] 2024 Medicare (Managed Care) [id number]. [id number] 2024 Unknown [id number] 2023 Unknown [id number] 2013 Unknown [facility] COMMUNITY PLAN [id number] 1956 Unknown [id number]. 62 1956 Unknown [id number] .[id number]. 62 1956 Unknown [id number] .[id number]. 62 1956 Unknown [id number] .[id number]. 62 1956 Unknown [id number]. [id number] Medicare MEDICARE PART A B [id number] 1 [id number] Unknown [id number]. 462 Unknown [id number] [id number]. 462 Unknown [id number] 2.16.840.1.298550.3.579.2. 462 Unknown [id number] 2.16.840.1.465686.3.579.2. 462 Unknown [id number] 2.16.840.1.919809.3.579.2. 462 Unknown [id number] 2.16.840.1.671461.3.579.2. 462 Unknown [id number] 2.16.840.1.295583.3.579.2. 462 Unknown [id number] [id number]. 462 Unknown [id number] [id number]. 462 Unknown [id number]. 462 Social History Date Type Detail Facility Start: 07-08-2019 Light tobacco smoker (finding) [facility] Sex Assigned At [facility] Start: 06-09-2023 End: 08-17-2023 Tobacco smoking status [facility] Unknown if ever smoked [facility] Start: 1955 Sex Assigned At Male [facility] Start: 09-03-2019 End: 05-17-2025 Tobacco smoking status NHIS Smokes tobacco daily [facility] Start: 05-05-1974 History of tobacco use Cigarette Smo ker [facility] Start: 09-03-2019 End: 10-19-2019 Cigarettes smoked current (pack per day) - Reported 1 [facility] Start: 09-03-2019 Tobacco use and exposure Smokeless tobacco non-user [facility] Start: 11-12-2024 Alcoholic beverage intake Current non-drinker of alcohol (finding) [facility] Start: 10-19-2019 End: 11-12-2024 Tobacco use panel [facility] PHQ-2 Score 0 [facility] Start: 1955 Sex assigned at Not on file [facility] Start: 03-17-2025 Sex Male (finding) [facility] Medical Equipment Procedure Code Equipment Code Equipment Origin al Text Equipment Identifier Dates Repair, hernia, ventral or umbilical, laparoscopic ([id number]) Extra-gynaecologic al surgical mesh, composite-polymer [id number] FDA Start: 08-28-2023 Repair, hernia, ventral or umbilical, laparoscopic Endoscopic manual linear stapler [id number] FDA Start: 08-28-2023 Goals Date Patient Goal Desired Activity /State Functional Status Date Assessment Result Facility 05-19-2025 Functional status Ambulates;Bath room Privilege [facility] Work Phone: 10-21-2024 Functional Status Repositions self [facility] 10-21-2024 Functional Status Maintained [facility] 05-05-2014 Are you deaf, or do you have serious difficulty hearing No 05/05/2014 12:02 PM Karo Shearer RN No [facility] 05-05-2014 Are you blind, or do you have serious difficulty seeing, even when wearing glasses No 05/05/2014 12:02 PM Karo Shearer RN No [facility] 05-05-2014 Do you have serious difficulty walking or climbing stairs No 05/05/2014 12:02 PM Karo Shearer RN No [facility] 05-05-2014 Do you have difficul ty dressing or bathing No 05/05/2014 12:02 PM Karo Shearer, LUZ No [facility] 05-05-2014 Because of a physica l, mental, or emotional condition, do you have difficulty doing errands alone such as visiting a physician's office or shopping No 05/05/2014 12:02 PM Karo Shearer RN No [facility] Mental Status Date Assessment Result Facility 05-18-2025 Cognitive function Voice/Name [facility] Work Phone: 10-21-2024 Mental Status Orientation Oriented x 4 [facility] (formerly [facility]) 10-21-2024 Mental Status [facility] 08-28-2023 Cognitive function Voice/Name [facility] Work Phone: 05-05-2014 Because of a physica l, mental, or emotional condition, do you have serious difficulty concentrating, remembering, or making decisions No 05/05/2014 12:02 PM EDT Karo Simeon RN No [facility] Clinical Notes 08-28-2023 to 05-19-2025 Note Date & Type Note Facility 05-19-2025 Progress note [facility] 05-19-2025 Discharge summary [facility] 05-19-2025 Note [facility] Medical Records Department [address] [place] [address] Discharge Summary 05/19/25 1548 MR#: [id number] Acct: [id number] Name: LUKE DOLAN Rep #: [id number] : 1955 69 From: Aaron Razo DO PCP: TYRONE DEJESUS Status:ADM IN Location: [place] [id number] Providers Date of Admission: 05/17/25 Primary Care Physician: SOL ROSS Consultations 05/17/25 16:40 Consult: Infectious Disease Routine Consulting Provider: Camden Flores Reason for Consult: left knee septic arthritis EMERGENT Consult: No MD Notified: Yes Date Notified: 05/19/25 Time Notified: 06:30 Method of Notification: Text 05/18/25 13:38 Consult: Orthopedics Routine Consulting Provider: Dom Gonzales Reason for Consult: left knee effusion EMERGENT Consult: No MD Notified: Yes Date Notified: 05/18/25 Time Notified: 13:38 Method of Notification: ED Physician Initiated Reason For Visit: LEFT KNEE SEPTIC ARTHRITIS Diagnosis Discharge Diagnosis (1) Septic arthritis of knee, left: Status: Acute Code(s): M00.9 - Pyogenic arthritis, unspecified Plan: Orthopedics following. Patient underwent a left knee irrigation debridement, removal of the loose body. That was performed . Cultures pending. Fluid studies: no crystals. WBCs 15.3. Abx w CTX and vancomycin ID consultation for long-term abx. And is recommending 3 weeks of vancomycin and ceftriaxone. Cultures are still pending and antibiotics may be further adjusted based on the culture results to become available. Patient did have PICC line placed and will be discharged home to continue with home care. Patient will miss a dose of IV antibiotics tonight which is okayed by him as he has been wanting to go home. Home care will start tomorrow, on the . Plan Chronic conditions * Coronary artery disease with history of stents. On aspirin. Clopidogrel held for now. * Hypertension: Continue with lisinopril * Diabetes mellitus type 2: On sliding scale insulin VTE prophylaxis: LMWH Medications at Discharge Home Medications fenofibrate 160 mg tablet 160 mg PO DAILY #30 tabs 12/17/18 rosuvastatin 40 mg tablet (Crestor) 40 mg PO DAILY 06/05/19 lisinopril 40 mg tablet 40 mg PO DAILY #90 tabs 12/13/21 aspirin 81 mg tablet,delayed release (Adult Aspirin Regimen) 81 mg PO DAILY 08/17/23 clopidogrel 75 mg tablet 75 mg PO DAILY #90 tabs 05/22/24 ezetimibe 10 mg tablet 10 mg PO DAILY 05/17/25 hydrocodone-acetaminophen 5-325mg 5mg-325mg 1 tab PO Q6H PRN PRN Pain 3 days #10 TABLETS 05/17/25 metformin 500 mg tablet,extended release 24 hr 500 mg PO BID 05/17/25 oxycodone-acetaminophen 5 mg-325 mg tablet 1 tab PO Q6H 05/17/25 pantoprazole 40 mg tablet,delayed release 40 mg PO DAILY 05/17/25 ceftriaxone 2 gram intravenous solution 2 g IV DAILY 21 days 05/19/25 vancomycin 1.5 gram intravenous solution 1.5 g IV Q12H 21 days 05/19/25 Hospital Course Operations - (Left knee irrigation and debridement, extensive, removal of loose body.) Procedures None Summary of Care Provided Minutes Spent on Discharge: 32 Hospital Course: Patient presented with warm swollen knee. Concern for septic arthritis. Patient was taken to the OR on the by Dr. Gonzales where he underwent incision and debridement of the knee that was extensive and as well as a removal of loose body. Patient tolerated the procedure well. Cultures were pending. Patient was on broad-spectrum antibiotics and has done well. Patient was seen by infectious disease and recommended 3 weeks of IV vancomycin and ceftriaxone. Further adjustments to antibiotics would be assessed by infectious disease as more culture data became available. Patient be weightbearing as tolerated and range of motion as tolerated. Patient advised to keep the incision clean and dry but avoid getting wet for the time being. Patient to follow-up with orthopedics as outpatient. Weight / BMI Weight Weight: 78.4 kg Body Mass Index (BMI) 27.8 ABG / Lab / Microbiology Data 05/19/25 03:09 05/19/25 03:09 Laboratory: Laboratory Results - last 24 hr 05/17/25 11:32: Fl Crystal Path Review Reviewed 05/18/25 16:07: POC Glucose 191 H 05/18/25 20:44: POC Glucose 178 H 05/19/25 03:09: WBC 15.0 H, RBC 4.70, Hgb 13.4, Hct 40.5, MCV 86.2, MCH 28.5, MCHC 33.1, RDW Std Deviation 45.1 H, RDW Coeff of Kranthi 14.3, Plt Count 305, MPV 9.5, Immature Gran % (Auto) 0.300, Neut % (Auto) 57.7, Lymph % (Auto) 33.1, [place] % (Auto) 8.4, Eos % (Auto) 0.2, Baso % (Auto) 0.3, Absolute Neuts (auto) 8.7 H, Absolute Lymphs (auto) 4.97 H, Nucleated RBC % 0, Sodium 138, Potassium 4.1, Chloride 105, Carbon Dioxide 21.0, Anion Gap 12, BUN 15, Creatinine 0.77, Estim Creat Clear Calc 87.05, Est GFR (MDRD) Non-Af 98, BUN/Creatinine Ratio 19.7, Glucose 130 H, Calcium 9.1, Vancomycin Trough 12.9 05/19/25 04 (more content not included)... [facility] 05-19-2025 Consult note Note Date/Time May 19, 2025 1:00pm [facility] Medical Records Department [address] [place] [address] Consultation - Infectious Dx 05/19/25 1257 MR#: [id number] Acct: [id number] Name: LUKE DOLAN Rep #:[id number] : 1955 69 From: Camden kaba MD PCP: TYRONE DEJESUS COMMUNICATIONS CLERKRogersC Status:ADM I N Location: MS3 CL677-6 Assessment & Plan Assessment/Plan (1) Septic arthritis of knee, left: PLAN: Taken to OR 05/17/[address] Gonzales for washout. Cxs neg so far, wants togo home today. Will order picc and 3 weeks empiric vanc/ceftriaxone. Will adjust if more cx data comes in. ID followup in 2 weeks. Will follow, thank you, dKobew rn case manager HPI Consult Data Date of Consult: 05/19/25 HPI Narrative Reason for Consultation: septic arthritis HPI Narrative: LUKE DOLAN, is a 69 M who presented 05/17 with about one week progressive L kneepain, swelling. No known inciting event, no h/o gout. No recent skin infections. No fever or chills. Came to ED 05/17, aspiration done, taken to OR that day by Dr. Gonzales. Feeling better on vanc/ceftriaxone, wants to go home today. Full ROS performed and neg except as noted above. [facility] Medical History Diabetes High cholesterol Back pain Gastric reflux Smoker Cardiology follow-up encounter Presence of stent in coronary artery (~08/2008) Essential hypertension Ventral incisional hernia without obstruction or gangrene Hyperlipidemia Acute [place], anterior wall, subsequent episode of care Old myocardial infarction Syncope and collapse Dyspnea Chest pain Long-term use of high-risk medication Atherosclerotic heart disease of [place] coronary artery without angina pectoris Home Medications [...] 40 mg PO DAILY 05/1705/17/25 History release ceftriaxone 2 gram intravenous 2 g IV DAILY 21 days Unknown Rx solution vancomycin 1.5 gram intravenous 1.5 g IV Q12H 21 days 05/19/25 Unknown Rx solution Allergy/AdvReac Type Severity Reaction Status Date / [...] use type: does not use caffeine: Yes Physical Exam Const alert, oriented x3 and no apparent distress General Appearance: cooperative HEENT normocephalic and head/scalp atraumatic Eyes PERRL and EOMs intact bilaterally Neck supple and No nodes Resp normal air movement and clear to auscultation bilaterally Cardio regular rate and regular rhythm GI soft to palpation, non-tender and non-distended Extremity General Extremity: Negative for edema Skin no rashes or lesions noted Skin Narrative: LLE wrapped Neuro CN's II-XII intact bilaterally Lab / Micro Data Attestation: I reviewed the patient's lab results. 05/19/25 03:09 05/19/25 03:09 Labs: Laboratory Results - last 24 hr 05/18/25 16:07: POC Glucose 191 H 05/18/25 20:44: POC Glucose 178 H 05/19/25 03:09: WBC 15.0 H, RBC 4.70, Hgb 13.4, Hct 40.5, MCV 86.2, MCH 28.5, MCHC 33.1, RDW Std Deviation 45.1 H, RDW Coeff of Kranthi 14.3, Plt Count 305, MPV 9.5, Immature Gran % (Auto) 0.300, Neut % (Auto) 57.7, Lymph % (Auto) 33.1, [place]% (Auto) 8.4, Eos % (Auto) 0.2, Baso % (Auto) 0.3, Absolute Neuts (auto) 8.7 H, Absolute Lymphs (auto) 4.97 H, Nucleated RBC % 0, Sodium 138, Potassium 4.1, Chloride 105, Carbon Dioxide 21.0, Anion Gap 12, BUN 15, Creatinine 0.77, Estim Creat Clear Calc 87.05, Est GFR (MDRD) Non-Af 98, BUN/Creatinine Ratio 19.7, Glucose 130 H, Calcium 9.1, Vancomycin Trough 12.9 05/19/25 04:47: POC Glucose 136 H 05/19/25 11:15: POC Glucose 138 H Micro: Microbiology 05/17/25 11:32 Fluid - Synovial (joint) Gram Stain - Final 05/17/25 11:32 Fluid - Synovial (joint) Body Fluid Culture - Preliminary No growth-Final to follow 05/17/25 11:32 Fluid - Synovial (joint) Anaerobic Culture - Preliminary No growth in 48 hours. 05/19/25 1300 <Electronically signed by Camden Flores MD> Cosigner Signature (if applicable): CC: Dr. Erickson Robbins, DO; TYRONE COMMUNICATIONS CLERK-C OLEG~ Signed [facility] Work Phone: 1(505) 512-925006-23-2025 Progress note Author Aaron Razo [facility] Note Date/Time May 19, 2025 11:1 8am [facility] Medical Records Department [address] [place] [address] Progress Note - Hospitalist 05/19/25 0737 MR#: [id number] Acct: [id number] Name: LUKE DOLAN Rep #:[id number] : 1955 69 From: Aaron Razo DO PCP: TYRONE DEJESUS COMMUNICATIONS CLERK-C Status:ADM I N Location: [place] [address] Reason for Visit Reason for Visit: Diagnoses Pyogenic arthritis, unspecified (05/17/25) Other chondrocalcinosis, left knee (05/17/25) Other intervertebral disc degeneration, lumbar region without mention of lumbar back pain or lower extremity pain (05/17/25) Subjective Subjective Feeling well. Ready to go home. Objective Data Objective Data Vital Signs: Vital Signs Temp Pulse Resp BP Pulse Ox O2 Del Method 36.9 C 79 16 175/70 H 97 Room Air 05/19/25 04:49 05/19/25 04:49 05/19/25 04:49 05/19/25 04:49 05/19/25 04:49 05/19/25 04:49 Oxygen Delivery Method Room Air Weight: 78.4 kg Body Mass Index (BMI) 27.8 Intake & Output: Intake and Output for Last 24 Hours 05/17/25 05/18/25 05/19/25 23:59 23:59 23:59 Intake Total 825 / 825 1690 / 1690 1230 / 1230 Output Total 303 / 303 150 / 150 Balance 522 / 522 1540 / 1540 1230 / 1230 Lab / Micro Data 05/19/25 03:09 05/19/25 03:09 Labs: Laboratory Results - last 24 hr 05/18/25 11:27: POC Glucose 186 H 05/18/25 16:07: POC Glucose 191 H 05/18/25 20:44: POC Glucose 178 H 05/19/25 03:09: Vancomycin Trough 12.9 05/19/25 04:47: POC Glucose 136 H Micro: Microbiology 05/17/25 11:32 Fluid - Synovial (joint) Gram Stain - Final Physical Exam Const alert and no apparent distress HEENT head/scalp atraumatic and moist oral mucous membranes Resp normal respiratory effort and no retractions Extremity Extremity Narrative: left knee effusion. no warmth. Skin Skin Narrative: no rash. no erythema. Neuro moves all extremities Sensorium / Orientation: awake and alert Speech: speech normal Psych affect normal Assessment & Plan Assessment/Plan (1) Septic arthritis of knee, left: PLAN: Orthopedics following. Patient underwent a left knee irrigation debridement, removal of the loose body. That was performed . Cultures pending. Fluid studies: no crystals. WBCs 15.3. Abx w CTX and vancomycin ID consultation for long-term abx. PLAN: Plan Chronic conditions * Coronary artery disease with history of stents. On aspirin. Clopidogrel held for now. * Hypertension: Continue with lisinopril * Diabetes mellitus type 2: On sliding scale insulin VTE prophylaxis: LMWH Charges/Coding Visit Charges Inpatient E&M: 31701 Subs Hosp L2 05/19/25 1118 <Electronically signed by Aaron Razo DO> Cosigner Signature (if applicable): CC: ~ Signed [facility] Work Phone: 1(337) 658-921206-23-2025 Consult note [facility] Medical Records Department [address] [place] [address] Consultation - Infectious Dx 05/19/25 1257 MR#: [id number] Acct: [id number] Name: LUKE DOLAN Rep #:[id number] : 1955 69 From: Camden kaba MD PCP: TYRONE DEJESUS COMMUNICATIONS CLERKAleyda Status:ADM I N Location: [place] [address] Assessment & Plan Assessment/Plan (1) Septic arthritis of knee, left: PLAN: Taken to OR 05/17/[address] Gonzales for washout. Cxs neg so far, wants togo home today. Will order picc and 3 weeks empiric vanc/ceftriaxone. Will adjust if more cx data comes in. ID followup in 2 weeks. Will follow, thank you, ghazala rn case manager HPI Consult Data Date of Consult: 05/19/25 HPI Narrative Reason for Consultation: septic arthritis HPI Narrative: LUKE DOLAN, is a 69 M who presented 05/17 with about one week progressive L kneepain, swelling. No known inciting event, no h/o gout. No recent skin infections. No fever or chills. Came to ED 05/17, aspiration done, taken to OR that day by Dr. Gonzales. Feeling better on vanc/ceftriaxone, wants to go home today. Full ROS performed and neg except as noted above. [facility] Medical History Diabetes High cholesterol Back pain Gastric reflux Smoker Cardiology follow-up encounter Presence of stent in coronary artery (~08/2008) Essential hypertension Ventral incisional hernia without obstruction or gangrene Hyperlipidemia Acute [place], anterior wall, subsequent episode of care Old myocardial infarction Syncope and collapse Dyspnea Chest pain Long-term use of high-risk medication Atherosclerotic heart disease of [place] coronary artery without angina pectoris Home Medications [...] 40 mg PO DAILY 05/1705/17/25 History release ceftriaxone 2 gram intravenous 2 g IV DAILY 21 days Unknown Rx solution vancomycin 1.5 gram intravenous 1.5 g IV Q12H 21 days 05/19/25 Unknown Rx solution Allergy/AdvReac Type Severity Reaction Status Date / [...] use type: does not use caffeine: Yes Physical Exam Const alert, oriented x3 and no apparent distress General Appearance: cooperative HEENT normocephalic and head/scalp atraumatic Eyes PERRL and EOMs intact bilaterally Neck supple and No nodes Resp normal air movement and clear to auscultation bilaterally Cardio regular rate and regular rhythm GI soft to palpation, non-tender and non-distended Extremity General Extremity: Negative for edema Skin no rashes or lesions noted Skin Narrative: LLE wrapped Neuro CN's II-XII intact bilaterally Lab / Micro Data Attestation: I reviewed the patient's lab results. 05/19/25 03:09 05/19/25 03:09 Labs: Laboratory Results - last 24 hr 05/18/25 16:07: POC Glucose 191 H 05/18/25 20:44: POC Glucose 178 H 05/19/25 03:09: WBC 15.0 H, RBC 4.70, Hgb 13.4, Hct 40.5, MCV 86.2, MCH 28.5, MCHC 33.1, RDW Std Deviation 45.1 H, RDW Coeff of Kranthi 14.3, Plt Count 305, MPV 9.5, Immature Gran % (Auto) 0.300, Neut % (Auto) 57.7, Lymph % (Auto) 33.1, [place]% (Auto) 8.4, Eos % (Auto) 0.2, Baso % (Auto) 0.3, Absolute Neuts (auto) 8.7 H, Absolute Lymphs (auto) 4.97 H, Nucleated RBC % 0, Sodium 138, Potassium 4.1, Chloride 105, Carbon Dioxide 21.0, Anion Gap 12, BUN 15, Creatinine 0.77, Estim Creat Clear Calc 87.05, Est GFR (MDRD) Non-Af 98, BUN/Creatinine Ratio 19.7, Glucose 130 H, Calcium 9.1, Vancomycin Trough 12.9 05/19/25 04:47: POC Glucose 136 H 05/19/25 11:15: POC Glucose 138 H Micro: Microbiology 05/17/25 11:32 Fluid - Synovial (joint) Gram Stain - Final 05/17/25 11:32 Fluid - Synovial (joint) Body Fluid Culture - Preliminary No growth-Final to follow 05/17/25 11:32 Fluid - Synovial (joint) Anaerobic Culture - Preliminary No growth in 48 hours. 05/19/25 1300 Cosigner Signature (if applicable): CC: Dr. Erickson Robbins DO; TYRONE DEJESUS~ Signed [facility]06-23-2025 Progress note [facility] Medical Records Department [address] [place] [address] Progress Note - Hospitalist 05/19/25 0737 MR#: [id number] Acct: [id number] Name: LUKE DOLAN Rep #:[id number] : 1955 69 From: Aaron Razo DO PCP: TYRONE DEJESUS Status:ADM I N Location: [place] [address] Reason for Visit Reason for Visit: Diagnoses Pyogenic arthritis, unspecified (05/17/25) Other chondrocalcinosis, left knee (05/17/25) Other intervertebral disc degeneration, lumbar region without mention of lumbar back pain or lower extremity pain (05/17/25) Subjective Subjective Feeling well. Ready to go home. Objective Data Objective Data Vital Signs: Vital Signs Temp Pulse Resp BP Pulse Ox O2 Del Method 36.9 C 79 16 175/70 H 97 Room Air 05/19/25 04:49 05/19/25 04:49 05/19/25 04:49 05/19/25 04:49 05/19/25 04:49 05/19/25 04:49 Oxygen Delivery Method Room Air Weight: 78.4 kg Body Mass Index (BMI) 27.8 Intake & Output: Intake and Output for Last 24 Hours 05/17/25 05/18/25 05/19/25 23:59 23:59 23:59 Intake Total 825 / 825 1690 / 1690 1230 / 1230 Output Total 303 / 303 150 / 150 Balance 522 / 522 1540 / 1540 1230 / 1230 Lab / Micro Data 05/19/25 03:09 05/19/25 03:09 Labs: Laboratory Results - last 24 hr 05/18/25 11:27: POC Glucose 186 H 05/18/25 16:07: POC Glucose 191 H 05/18/25 20:44: POC Glucose 178 H 05/19/25 03:09: Vancomycin Trough 12.9 05/19/25 04:47: POC Glucose 136 H Micro: Microbiology 05/17/25 11:32 Fluid - Synovial (joint) Gram Stain - Final Physical Exam Const alert and no apparent distress HEENT head/scalp atraumatic and moist oral mucous membranes Resp normal respiratory effort and no retractions Extremity Extremity Narrative: left knee effusion. no warmth. Skin Skin Narrative: no rash. no erythema. Neuro moves all extremities Sensorium / Orientation: awake and alert Speech: speech normal Psych affect normal Assessment & Plan Assessment/Plan (1) Septic arthritis of knee, left: PLAN: Orthopedics following. Patient underwent a left knee irrigation debridement, removal of the loose body. That was performed . Cultures pending. Fluid studies: no crystals. WBCs 15.3. Abx w CTX and vancomycin ID consultation for long-term abx. PLAN: Plan Chronic conditions * Coronary artery disease with history of stents. On aspirin. Clopidogrel held for now. * Hypertension: Continue with lisinopril * Diabetes mellitus type 2: On sliding scale insulin VTE prophylaxis: LMWH Charges/Coding Visit Charges Inpatient E&M: 01937 Subs Hosp L2 05/19/25 1118 Cosigner Signature (if applicable): CC: ~ Signed [facility]06-23-2025 Consult note Author Aaron Cee [facility] Note Date/Time May 19, 2025 4:[address] [facility] Medical Records Department [address] [place] [address] Pharmacokinetic/Renal -Consult 05/19/25440 MR#: [id number] Acct: [id number] Name: LUKE DOLAN Rep #:[id number] : 1955 69 From: Aaron Cee PCP: TYRONE DEJESUS COMMUNICATIONS CLERK-C Status:ADM I N Y Location: [place] [address] Consult Antibiotic Management Pharmacy has been consulted to manage selected antibiotic: Vancomycin Type of Intervention Type of Consult: Follow-up Labs Labs: Sodium 134 mmol/L (133-145) 05/18/25 05:47 Potassium 4.6 mmol/L (3.3-5.1) 05/18/25 05:47 Chloride 103 mmol/L (98-108) 05/18/25 05:47 Carbon Dioxide 21.7 mmol/L (21.0-32.0) 05/18/25 05:47 Anion Gap 10 (5-15) 05/18/25 05:47 BUN 17 mg/dL (4-19) 05/18/25 05:47 Creatinine 0.92 mg/dL (0.70-1.20) 05/18/25 05:47 Est GFR (MDRD) Non-Af 91 (>60) 05/18/25 05:47 BUN/Creatinine Ratio 18.7 RATIO (10-20) 05/18/25 05:47 Glucose 185 mg/dL (70-99) H 05/18/25 05:47 Vancomycin Trough 12.9 ug/mL (5.0-15.0) 05/19/25 03:09 Microbiology Microbiology: Microbiology 05/17/25 11:32 Fluid - Synovial (joint) Gram Stain - Final Dosing Weight Weight used for dosin.4 kg Estimated Creatinine Clearance Estimated Creatinine Clearance: 76 Goal Trough Goal Trough: 15-20 mcg/mL Pharmacy Plan for Drug Dosing Pharmacy Plan for Drug Dosing: Vancomycin trough level of 12.9, drawn 11.8hrs post-dose, was below the target range of 15-20. Will increase dose to 1500mg q12h, and will draw a trough prior to the fourth dose of the new regimen. Pharmacy Service will continue to monitor and adjust dosing as required. Follow-Up Labs Follow-Up Labs: Trough: Vancomycin Date/Time Labs Ordered Labs to be done on [date and time ordered]: 05/20/25 @1600 05/19/25442 <Electronically signed by Aaron lorenz> Date _ Aaron Cee Cosigner Signature (if applicable): Date CC: ~ Signed [facility] Work Phone: 1(822) 899-115506-23-2025 Consult note [facility] Medical Records Department [address] [place] [address] Pharmacokinetic/Renal -Consult 05/19/25440 MR#: [id number] Acct: [id number] Name: LUKE DOLAN Rep #:[id number] : 1955 69 From: Aaron Cee PCP: TYRONE DEJESUS COMMUNICATIONS CLERK-C Status:ADM I N Y Location: [place] [address] Consult Antibiotic Management Pharmacy has been consulted to manage selected antibiotic: Vancomycin Type of Intervention Type of Consult: Follow-up Labs Labs: Sodium 134 mmol/L (133-145) 05/18/25 05:47 Potassium 4.6 mmol/L (3.3-5.1) 05/18/25 05:47 Chloride 103 mmol/L (98-108) 05/18/25 05:47 Carbon Dioxide 21.7 mmol/L (21.0-32.0) 05/18/25 05:47 Anion Gap 10 (5-15) 05/18/25 05:47 BUN 17 mg/dL (4-19) 05/18/25 05:47 Creatinine 0.92 mg/dL (0.70-1.20) 05/18/25 05:47 Est GFR (MDRD) Non-Af 91 (>60) 05/18/25 05:47 BUN/Creatinine Ratio 18.7 RATIO (10-20) 05/18/25 05:47 Glucose 185 mg/dL (70-99) H 05/18/25 05:47 Vancomycin Trough 12.9 ug/mL (5.0-15.0) 05/19/25 03:09 Microbiology Microbiology: Microbiology 05/17/25 11:32 Fluid - Synovial (joint) Gram Stain - Final Dosing Weight Weight used for dosin.4 kg Estimated Creatinine Clearance Estimated Creatinine Clearance: 76 Goal Trough Goal Trough: 15-20 mcg/mL Pharmacy Plan for Drug Dosing Pharmacy Plan for Drug Dosing: Vancomycin trough level of 12.9, drawn 11.8hrs post-dose, was below the target range of 15-20. Willincrease dose to 1500mg q12h, and will draw a trough prior to the fourth dose of the new regimen. Pharmacy Service will continue to monitor and adjust dosing as required. Follow-Up Labs Follow-Up Labs: Trough: Vancomycin Date/Time Labs Ordered Labs to be done on [date and time ordered]: 05/20/25 @1600 05/19/25 0443 ds> Date _ Aaron Moore Signature (if applicable): Date CC: ~ Signed [facility]06-22-2025 Progress note Author Aaron Razo [facility] Note Date/Time May 18, 2025 1:40 pm [facility] Medical Records Department [address] [place] [address] Progress Note - Hospitalist 05/18/2525 MR#: [id number] Acct: [id number] Name: LUKE DOLAN Rep #:[id number] : 1955 69 From: Aaron Razo DO PCP: TYRONE DEJESUS COMMUNICATIONS CLERKRogersC Status:ADM I N Location: [place] [address] Reason for Visit Reason for Visit: Diagnoses Pyogenic arthritis, unspecified (05/17/25) Other chondrocalcinosis, left knee (05/17/25) Other intervertebral disc degeneration, lumbar region without mention of lumbar back pain or lower extremity pain (05/17/25) Subjective Subjective Left knee feeling better. Objective Data Objective Data Vital Signs: Vital Signs Temp Pulse Resp BP Pulse Ox O2 Del Method 36.6 C 64 16 142/74 H 94 Room Air 05/18/25 04:21 05/18/25 04:21 05/18/25 04:21 05/18/25 04:21 05/18/25 04:21 05/18/25 04:21 Oxygen Delivery Method Room Air Weight: 78.4 kg Body Mass Index (BMI) 27.8 Intake & Output: Intake and Output for Last 24 Hours 05/16/25 05/17/25 05/18/25 23:59 23:59 23:59 Intake Total 825 / 825 525 / 525 Output Total 303 / 303 150 / 150 Balance 522 / 522 375 / 375 Lab / Micro Data 05/18/25 05:47 05/18/25 05:47 Labs: Laboratory Results - last 24 hr 05/17/25 09:50: WBC 17.5 H, RBC 5.43, Hgb 15.5, Hct 46.6, MCV 85.8, MCH 28.5, MCHC 33.3, RDW Std Deviation 44.8 H, RDW Coeff of Kranthi 14.3, Plt Count 297, MPV 9.1, Immature Gran % (Auto) 0.200, Neut % (Auto) 51.0, Lymph % (Auto) 37.9, [place]% (Auto) 9.4, Eos % (Auto) 1.0, Baso % (Auto) 0.5, Absolute Neuts (auto) 8.9 H, Absolute Lymphs (auto) 6.61 H, Nucleated RBC % 0, ESR 45 H, Sodium 135, Potassium 4.0, Chloride 101, Carbon Dioxide 20.2 L, Anion Gap 14, BUN 12, Creatinine 0.87, Estim Creat Clear Calc 80.05, Est GFR (MDRD) Non-Af 94, BUN/Creatinine Ratio 13.7, Glucose 112 H, Hemoglobin A1c 7.1 H, Calcium 9.6, Total Bilirubin 0.47, AST 19, ALT 9, Alkaline Phosphatase 66, C-React Prot [...] % 10.2, Synovial Path Comment May follow 05/17/25 16:26: POC Glucose 138 H 05/17/25 16:45: POC Glucose 148 H 05/17/25 20:49: POC Glucose 237 H 05/18/25 05:47: WBC 15.2 H, RBC 4.69, Hgb 13.2, Hct 40.8, MCV 87.0, MCH 28.1, MCHC 32.4, RDW Std Deviation 45.8 H, RDW Coeff of Kranthi 14.3, Plt Count 282, MPV 9.2 05/18/25 06:17: POC Glucose 195 H Micro: Microbiology 05/17/25 11:32 Fluid - Synovial (joint) Gram Stain - Final Radiography Diagnostic Testing: Radiology Impression Knee X-Ray 05/17/25 11:10 IMPRESSION: No acute fracture or dislocations. Mild to moderate degenerative changes of theleft knee with chondrocalcinosis. Moderate soft tissue edema. Large joint effusion. No radiographic foreign body. Reading Location: [facility] Lumbar Spine X-Ray 05/17/25 11:10 IMPRESSION: No acute process identified. Degenerative disc disease Reading Location[facility] Physical Exam Const alert and no apparent distress Constitutional Narrative: up in chair. Non-toxic. Afebrile. HEENT head/scalp atraumatic and moist oral mucous membranes Resp normal respiratory effort and no retractions Extremity Extremity Narrative: left knee dressing taken down. minimal effusion. No surrounding erythema. Neuro Sensorium / Orientation: awake and alert Assessment & Plan Assessment/Plan (1) Septic arthritis of knee, left: PLAN: Orthopedics following. Patient underwent a left knee irrigation debridement, removal of the loose body. That was performed . Cultures pending. Fluid studies: no crystals. WBCs 15.3. Abx w CTX and vancomycin ID consultation for long-term abx. PLAN: Plan Chronic conditions * Coronary artery disease with history of stents. On aspirin. Clopidogrel held for now. * Hypertension: Continue with lisinopril * Diabetes mellitus type 2: On sliding scale insulin VTE prophylaxis: LMWH Charges/Coding Visit Charges Inpatient E&M: 90492 Subs Hosp L2 05/18/25 1340 <Electronically signed by Aaron Razo DO> Cosigner Signature (if applicable): CC: ~ Signed [facility] Work Phone: 1(863) 158-676706-22-2025 Progress note [facility] Medical Records Department [address] [place] [address] Progress Note - Hospitalist 05/18/25724 MR#: [id number] Acct: [id number] Name: LUKE DOLAN Rep #:[id number] : 1955 69 From: Aaron Razo DO PCP: TYRONE DEJESUS COMMUNICATIONS CLERK-C Status:ADM I N Location: [place] [address] Reason for Visit Reason for Visit: Diagnoses Pyogenic arthritis, unspecified (05/17/25) Other chondrocalcinosis, left knee (05/17/25) Other intervertebral disc degeneration, lumbar region without mention of lumbar back pain or lower extremity pain (05/17/25) Subjective Subjective Left knee feeling better. Objective Data Objective Data Vital Signs: Vital Signs Temp Pulse Resp BP Pulse Ox O2 Del Method 36.6 C 64 16 142/74 H 94 Room Air 05/18/25 04:21 05/18/25 04:21 05/18/25 04:21 05/18/25 04:21 05/18/25 04:21 05/18/25 04:21 Oxygen Delivery Method Room Air Weight: 78.4 kg Body Mass Index (BMI) 27.8 Intake & Output: Intake and Output for Last 24 Hours 05/16/25 05/17/25 05/18/25 23:59 23:59 23:59 Intake Total 825 / 825 525 / 525 Output Total 303 / 303 150 / 150 Balance 522 / 522 375 / 375 Lab / Micro Data 05/18/25 05:47 05/18/25 05:47 Labs: Laboratory Results - last 24 hr 05/17/25 09:50: WBC 17.5 H, RBC 5.43, Hgb 15.5, Hct 46.6, MCV 85.8, MCH 28.5, MCHC 33.3, RDW Std Deviation 44.8 H, RDW Coeff of Kranthi 14.3, Plt Count 297, MPV 9.1, Immature Gran % (Auto) 0.200, Neut % (Auto) 51.0, Lymph % (Auto) 37.9, [place]% (Auto) 9.4, Eos % (Auto) 1.0, Baso % (Auto) 0.5, Absolute Neuts (auto) 8.9 H, Absolute Lymphs (auto) 6.61 H, Nucleated RBC % 0, ESR 45 H, Sodium 135, Potassium 4.0, Chloride 101, Carbon Dioxide 20.2 L, Anion Gap 14, BUN 12, Creatinine 0.87, Estim Creat Clear Calc 80.05, Est GFR (MDRD) Non-Af 94, BUN/Creatinine Ratio 13.7, Glucose 112 H, Hemoglobin A1c 7.1 H,Calcium 9.6, Total Bilirubin 0.47, AST 19, ALT 9, Alkaline Phosphatase 66, C-React Prot [...] RBC 0.008 H, Synovial Tot Cell Ct 15.3980H, Synov Polynuclear WBCs 11.969, Synov Mononuclear WBCs 1.353, Synovial Neutrophils 73 H, SynovialLymphocytes 1, Synovial Monocytes 26, Synovial Polynuclear % 89.8, Synovial Mononuclear % 10.2, Synovial Path Comment May follow 05/17/25 16:26: POC Glucose 138 H 05/17/25 16:45: POC Glucose 148 H 05/17/25 20:49: POC Glucose 237 H 05/18/25 05:47: WBC 15.2 H, RBC 4.69, Hgb 13.2, Hct 40.8, MCV 87.0, MCH 28.1, MCHC 32.4, RDW Std Deviation 45.8 H, RDW Coeff of Kranthi 14.3, Plt Count 282, MPV 9.2 05/18/25 06:17: POC Glucose 195 H Micro: Microbiology 05/17/25 11:32 Fluid - Synovial (joint) Gram Stain - Final Radiography Diagnostic Testing: Radiology Impression Knee X-Ray 05/17/25 11:10 IMPRESSION: No acute fracture or dislocations. Mild to moderate degenerative changes of theleft knee with chondrocalcinosis. Moderate soft tissue edema. Large joint effusion. No radiographic foreign body. Reading Location: [id number] Lumbar Spine X-Ray 05/17/25 11:10 IMPRESSION: No acute process identified. Degenerative disc disease Reading Location: [facility] Physical Exam Const alert and no apparent distress Constitutional Narrative: up in chair. Non-toxic. Afebrile. HEENT head/scalp atraumatic and moist oral mucous membranes Resp normal respiratory effort and no retractions Extremity Extremity Narrative: left knee dressing taken down. minimal effusion. No surrounding erythema. Neuro Sensorium / Orientation: awake and alert Assessment & Plan Assessment/Plan (1) Septic arthritis of knee, left: PLAN: Orthopedics following. Patient underwent a left knee irrigation debridement, removal of the loose body. That was performed . Cultures pending. Fluid studies: no crystals. WBCs 15.3. Abx w CTX and vancomycin ID consultation for long-term abx. PLAN: Plan Chronic conditions * Coronary artery disease with history of stents. On aspirin. Clopidogrel held for now. * Hypertension: Continue with lisinopril * Diabetes mellitus type 2: On sliding scale insulin VTE prophylaxis: LMWH Charges/Coding Visit Charges Inpatient E&M: 08834 Subs Hosp L2 05/18/25 1340 Cosigner Signature (if applicable): CC: ~ Signed [facility]06-21-2025 History and physical note Author Erickson Robbins [facility] Note Date/Time May 17, 2025 7:37 pm [facility] Medical Records Department [address] [place] [address] H&P Exam - Hospitalist 05/17/25 1444 MR#: [id number] Acct: [id number] Name: LUKE DOLAN Rep #:[id number] : 1955 69 From: Erickson cedeno DO PCP: TYRONE DEJESUS COMMUNICATIONS CLERK-C Status:ADM I N Location: [place] [id number] HPI - General General Date of Admission: 05/17/25 Date of Service: 05/17/25 Chief Complaint: Worsening left knee pain with swelling HPI Narrative LUKE DOLAN, is a 69 M who presented to [facility] ED on 05/17/2025 with worsening left knee pain with swelling. Medical history is significant for CAD with stenting, hypertension, diabetes and tobacco use. He presented with both left knee pain and swelling and atraumatic low back pain. Lumbar spine x-ray showed degenerative disease with no acute findings and it wassuspected that the low back pain was musculoskeletal in nature. However, the knee x-ray showed mild to moderate degenerative changes with chondrocalcinosis, moderate soft tissue edema and a large joint effusion. Had arthrocentesis of the left knee done in the ED. Notably had low-grade fever, WBC count 17 and increased ESR and CRP, and synovial fluid aspiration showed 1+ Gram stain as well as 15,000 white blood cell count with 70% neutrophil predominance and negative crystal analysis. Case was discussed with Dr. Gonzales with orthopedics who noted that there was concern for acute septic joint and recommendation was for urgent surgical intervention. He had a full diagnostic arthroscopy done this afternoon that showed a small joint effusion, minor amountof synovitis and chondrocalcinosis noted. Per Dr. Gonzales's note, does not appear there was any cailin purulence or severe signs of infection noted. Knee was irrigated thoroughly and debrided during the procedure as well. He was taken to the PACU postoperatively in stable condition. Hospitalist was then contacted to admit the patient. I saw the patient at bedside on MedSurg shortlyafter he arrived up there. Patient was sitting back comfortably in bed, conversing normally, in no acute distress. Noted that he did have some left knee pain after the procedure but had just been given doses of oxycodone and Tylenol and had moderate improvement of the pain with this. He denied any back pain currently. Had just eaten his dinner without issue. No other acute concerns at this time. [facility] Medical History Diabetes High cholesterol Back pain Gastric reflux Smoker Cardiology follow-up encounter Presence of stent in coronary artery (~08/2008) Essential hypertension Ventral incisional hernia without obstruction or gangrene Hyperlipidemia Acute [place], anterior wall, subsequent episode of care Old myocardial infarction Syncope and collapse Dyspnea Chest pain Long-term use of high-risk medication Atherosclerotic heart disease of [place] coronary artery without angina pectoris Home Medications [...] type: does not use caffeine: Yes ROS Constitutional Constitutional: Denies chills, fatigue, fever(s) or weakness Eyes Eyes: Denies change in vision Cardiovascular Cardiovascular: Denies chest pain Respiratory/Chest Respiratory/Chest: Denies shortness of breath at rest Gastrointestinal Gastrointestinal: Denies abdominal pain Genitourinary Genitourinary: Denies dysuria Musculoskeletal Musculoskeletal: Reports joint pain; Denies arthralgias or myalgias Neurologic Neurologic: Denies dizziness, focal weakness or headache(s) Vital Signs Vital Signs Vital Signs: 05/17/25 [...] Ox 99 Oxygen Delivery Method Weight Weight: 78.4 kg Body Mass Index (BMI) 27.8 Physical Exam Const alert, oriented x3, no apparent distress, average body habitus, healthy appearing and well nourished Constitutional Narrative: Upper middle-aged male, sitting back comfortably in bed, conversing normally, inno acute distress. General Appearance: cooperative, comfortable, well kempt and well developed HEENT normocephalic, head/scalp atraumatic, hearing grossly normal bilaterally, nasal mucous membranes and turbinates normal and moist oral mucous membranes Eyes PERRL, EOMs intact bilaterally and conjunctivae normal Neck full ROM Chest inspection of chest normal Resp normal respiratory effort, normal air movement, no use of accessory muscles and clear to auscultation bilaterally Cardio regular rate, regular rhythm, no murmurs and peripheral pulses 2+ throughout GI normal to inspection, nondistended, normoactive bowel sounds, soft to palpation,non-tender and non-distended Back/Spine normal ROM Extremity Extremity Narrative: Left knee with Donta wrap in place. Skin no rashes or lesions noted Neuro moves all extremities and no focal motor deficits Speech: speech normal Motor Exam: strength 5/5 throughout Psych mental status grossly normal Results Lab / Micro Data 05/17/25 09:50 05/17/25 09:50 Labs: Laboratory Results - last 24 hr 05/17/25 09:50: WBC 17.5 H, RBC 5.43, Hgb 15.5, Hct 46.6, MCV 85.8, MCH 28.5, MCHC 33.3, RDW Std Deviation 44.8 H, RDW Coeff of Kranthi 14.3, Plt Count 297, MPV 9.1, Immature Gran % (Auto) 0.200, Neut % (Auto) 51.0, Lymph % (Auto) 37.9, [place]% (Auto) 9.4, Eos % (Auto) 1.0, Baso [...] effusion. No radiographic foreign body. Reading Location: [id number] Lumbar Spine X-Ray 05/17/25 11:10 IMPRESSION: No acute process identified. Degenerative disc disease Reading Location[facility] Assessment & Plan Assessment/Plan (1) Septic arthritis of knee, left: PLAN: Plan Patient is a 69-year-old male who presented [facility] ED on 05/17/2025 with worsening left knee pain with swelling. 1. Concern for left knee septic arthritis ? Admit under inpatient status to [facility]. Orthopedic surgery following. Infectious disease consulted. PT/OT/case management consulted. Presented with worsening swelling and pain with motion for few days. Knee x-ray showed mild tomoderate degenerative changes with chondrocalcinosis, moderate soft tissue edemaand a large joint effusion. Arthrocentesis done in the ED, fluid studies showed1+ Gram stain, 15K WBCs with 70% neutrophils and negative crystals. Also had low-grade fever, WBC count 17 and increased ESR and CRP. S/p full diagnostic arthroscopy that showed small joint effusion, minor amount of synovitis and chondrocalcinosis; per Dr. Gonzales's note, does not appear there was any cailin purulence or severe signs of infection noted. Will treat with IV vancomycin andceftriaxone for now. Pain control with Tylenol, oxycodone and IV Dilaudid as needed. Appreciate further surgery recommendations. 2. Mild acute on chronic low back pain ? Presenting with atraumatic worsening of chronic low back pain. Lumbar x-ray showed chronic degenerative changes with no acute concerns. Treat conservatively with pain medications as above. 3. History of CAD with stenting, hypertension, hyperlipidemia ? History of stenting back in 2007. Continue home aspirin, Zetia, fenofibrate, statin, and lisinopril. Will hold Plavix for now, appreciate orthopedic surgeryrecommendations on timing of restarting this. 4. Type 2 diabetes mellitus ? A1c 7.1%. Glucose 112 on admit. Hold home metformin. Will treat with sliding scale insulin with meals while inpatient, adjust as needed. 5. GERD ? Continue home PPI. 6. Tobacco abuse ? Current smoker. Denied need for nicotine replacement therapy while inpatient. Discussed cessation on discharge. DVT prophylaxis: Lovenox CODE STATUS: Full code, verified Expected disposition: TBD Total clinical time spent by myself addressing the patient's medical issues, reviewing all the data, and collaborating with patient's care team: 75 minutes. Charges/Coding Visit Charges Inpatient E&M: 92665 Init Hosp L3 05/17/251936 <Electronically signed by Erickson Robbins DO> Cosigner Signature (if applicable): CC: Dr. Erickson Robbins DO; TYRONE NORRISC OLEG~ Signed [facility] Work Phone: 1([phone]) 521-491106-21-2025 History and physical note [facility] Medical Records Department [address] [place] [address] H&P Exam - Hospitalist 05/17/25 1444 MR#: [id number] Acct: [id number] Name: LUKE DOLAN Rep #:[id number] : 1955 69 From: Erickson cedeno DO PCP: TYRONE DEJESUS Status:ADM I N Location: [facility] [id number] HPI - General General Date of Admission: 05/17/25 Date of Service: 05/17/25 Chief Complaint: Worsening left knee pain with swelling HPI Narrative LUKE DOLAN, is a 69 M who presented to [facility] ED on 05/17/2025 with worsening left knee pain with swelling. Medical history is significant for CAD with stenting, hypertension, diabetes and tobacco use. He presented with both left knee pain and swelling and atraumatic low back pain. Lumbar spine x-ray showed degenerative disease with no acute findings and it wassuspected that the low back pain was musculoskeletal in nature. However, the knee x-ray showed mild to moderate degenerative changes with chondrocalcinosis, moderate soft tissue edema and a large joint effusion. Had arthrocentesis of the left knee done in the ED. Notably had low-grade fever, WBC count 17 and increas ed ESR and CRP, and synovial fluid aspiration showed 1+ Gram stain as well as 15,000 white blood cell count with 70% neutrophil predominance and negative crystal analysis. Case was discussed with with orthopedics who noted that there was concern for acute septic joint and recommendation was for urgent surgical intervention. He had a full diagnostic arthroscopy done this afternoon that showed a small joint effusion, minor amountof synovitis and chondrocalcinosis noted. Per Dr. Gonzales's note, does not appear there was any cailin purulence or severe signs of infection noted. Knee was irrigated thoroughly and debrided during the procedure as well. He was taken to the PACU postoperatively in stable condition. Hospitalist was then contacted to admit the patient. [facility]. Patient was sitting back comfortably in bed,conversing normally, in no acute distress. Noted that he did have some left knee pain after the procedure but had just been given doses of oxycodone and Tylenol and had moderate improvement of the pain with this. He denied any back pain currently. Had just eaten his dinner without issue. No other acute concerns at this time. [facility] Medical History Diabetes High cholesterol Back pain Gastric reflux Smoker Cardiology follow-up encounter Presence of stent in coronary artery (~08/2008) Essential hypertension Ventral incisional hernia without obstruction or gangrene Hyperlipidemia Acute [place], anterior wall, subsequent episode of care Old myocardial infarction Syncope and collapse Dyspnea Chest pain Long-term use of high-risk medication Atherosclerotic heart disease of [place] coronary artery without angina pectoris Home Medications [...] type: does not use caffeine: Yes ROS Constitutional Constitutional: Denies chills, fatigue, fever(s) or weakness Eyes Eyes: Denies change in vision Cardiovascular Cardiovascular: Denies chest pain Respiratory/Chest Respiratory/Chest: Denies shortness of breath at rest Gastrointestinal Gastrointestinal: Denies abdominal pain Genitourinary Genitourinary: Denies dysuria Musculoskeletal Musculoskeletal: Reports joint pain; Denies arthralgias or myalgias Neurologic Neurologic: Denies dizziness, focal weakness or headache(s) Vital Signs Vital Signs Vital Signs: 05/17/25 [...] Ox 99 Oxygen Delivery Method Weight Weight: 78.4 kg Body Mass Index (BMI) 27.8 Physical Exam Const alert, oriented x3, no apparent distress, average body habitus, healthy appearing and well nourished Constitutional Narrative: Upper middle-aged male, sitting back comfortably in bed, conversing normally, inno acute distress. General Appearance: cooperative, comfortable, well kempt and well developed HEENT normocephalic, head/scalp atraumatic, hearing grossly normal bilaterally, nasal mucous membranes and turbinates normal and moist oral mucous membranes Eyes PERRL, EOMs intact bilaterally and conjunctivae normal Neck full ROM Chest inspection of chest normal Resp normal respiratory effort, normal air movement, no use of accessory muscles and clear to auscultation bilaterally Cardio regular rate, regular rhythm, no murmurs and peripheral pulses 2+ throughout GI normal to inspection, nondistended, normoactive bowel sounds, soft to palpation,non-tender and non-distended Back/Spine normal ROM Extremity Extremity Narrative: Left knee with Donta wrap in place. Skin no rashes or lesions noted Neuro moves all extremities and no focal motor deficits Speech: speech normal Motor Exam: strength 5/5 throughout Psych mental status grossly normal Results Lab / Micro Data 05/17/25 09:50 05/17/25 09:50 Labs: Laboratory Results - last 24 hr 05/17/25 09:50: WBC 17.5 H, RBC 5.43, Hgb 15.5, Hct 46.6, MCV 85.8, MCH 28.5, MCHC 33.3, RDW Std Deviation 44.8 H, RDW Coeff of Kranthi 14.3, Plt Count 297, MPV 9.1, Immature Gran % (Auto) 0.200, Neut % (Auto) 51.0, Lymph % (Auto) 37.9, [place]% (Auto) 9.4, Eos % (Auto) 1.0, Baso [...] RBC 0.008 H, Synovial Tot Cell Ct 15.3980H, Synov Polynuclear WBCs 11.969, Synov Mononuclear WBCs 1.353, Synovial Neutrophils 73 H, SynovialLymphocytes 1, Synovial Monocytes 26, Synovial Polynuclear % [...] effusion. No radiographic foreign body. Reading Location: [facility] Lumbar Spine X-Ray 05/17/25 11:10 IMPRESSION: No acute process identified. Degenerative disc disease Reading Location: [facility] Assessment & Plan Assessment/Plan (1) Septic arthritis of knee, left: PLAN: Plan Patient is a 69-year-old male who presented [facility] ED on 05/17/2025 with worsening left knee pain with swelling. 1. Concern for left knee septic arthritis ? Admit under inpatient status to [facility]. Orthopedic surgery following. Infectious disease consulted. PT/OT/case management consulted. Presented with worsening swelling and pain with motion for few days. Knee x-ray showed mild tomoderate degenerative changes with chondrocalcinosis, moderate soft tissue edemaand a large joint effusion. Arthrocentesis done in the ED, fluid studies showed1+ Gram stain, 15K WBCs with 70% neutrophils and negative crystals. Also had low-grade fever, WBC count 17 andincreased ESR and CRP. S/p full diagnostic arthroscopy that showed small joint effusion, minor amount of synovitis and chondrocalcinosis; per Dr. Gonzales's note, does not appear there was any cailin purulence or severe signs of infection noted. Will treat with IV vancomycin andceftriaxone for now. Pain control with Tylenol, oxycodone and IV Dilaudid as needed. Appreciate further surgery recommendations. 2. Mild acute on chronic low back pain ? Presenting with atraumatic worsening of chronic low back pain. Lumbar x-ray showed chronic degenerative changes with no acute concerns. Treat conservatively with pain medications as above. 3. History of CAD with stenting, hypertension, hyperlipidemia ? History of stenting back in 2007. Continue home aspirin, Zetia, fenofibrate, statin, and lisinopril. Will hold Plavix for now, appreciate orthopedic surgeryrecommendations on timing of restarting this. 4. Type 2 diabetes mellitus ? A1c 7.1%. Glucose 112 on admit. Hold home metformin. Will treat with sliding scale insulin with meals while inpatient, adjust as needed. 5. GERD ? Continue home PPI. 6. Tobacco abuse ? Current smoker. Denied need for nicotine replacement therapy while inpatient. Discussed cessationon discharge. DVT prophylaxis: Lovenox CODE STATUS: Full code, verified Expected disposition: TBD Total clinical time spent by myself addressing the patient's medical issues, reviewing all the data, and collaborating with patient's care team: 75 minutes. Charges/Coding Visit Charges Inpatient E&M: 12507 Init Hosp L3 05/17/251936 Cosigner Signature (if applicable): CC: Dr. Erickson Robbins DO; TYRONE DEJESUS~ Signed [facility]06-21-2025 Consult note Author Phani Oneil [facility] Note Date/Time May 17, 2025 4:[address] [facility] Medical Records Department [address] [place] [address] Anesthesia Postop Eval II 05/17/257 MR#: [id number] Acct: [id number] Name: LUKE DOLAN Rep #:[id number] : 1955 69 From: Phani Oneil MD PCP: TYRONE DEJESUS Status:REG S DC Y Race: C Location: [place] [address] Anesthesia Postop Eval I Sum Postop Eval Completion status Anesthesia document: Postop Eval 1 completed: Yes Anesthesia Postop Eval I Summary Anesthesia Postop Eval I Summary: Anesthesia Postop Eval I: Assessment Summary 3 Airway patent Yes 05/17/25 16:00 Spontaneous unlabored Yes 05/17/25 16:00 respirations Mental status Awake,Calm 05/17/25 16:00 nausea No 05/17/25 16:00 Vomiting No 05/17/25 16:00 Anesthesia Postop Eval I: Fluid Summary Crystalloid volume administer 300 05/17/25 16:00 (ml) Colloids volume administered ( ml) Blood Product volume administered (ml) Total IV fluid infused 300 05/17/25 16:00 Anesthesia Postop Eval I: Summary Notes Anesthesia Complication No 05/17/25 16:00 Anesthesia Complication Comment: Post-operative progress note Anesthesia: Postop Eval II Evaluation Mental status: Awake and Calm Pain Level: 1 nausea: No Vomiting: No Complications Anesthesia Complication: No 05/17/25 1618 <Electronically signed by Phani merida MD> Date _ Phani Manningignidris Signature: Date CC: ~ Signed [facility] Work Phone: 1(937) 353-949706-21-2025 Evaluation note* Diagnosis Onset Date Resolution Status Admit Date Chondrocalcinosis of left knee acute May 17, 2025 4:08pm Septic arthritis of knee, left acute May 17, 2025 4:08pm [facility] Work Phone: 1(641) 715-255506-21-2025 Evaluation note* Diagnosis Onset Date Resolution Status Admit Date Chondrocalcinosis of left knee resol pauly May 17, 2025 4:08pm Septic arthritis of knee, left resol pauly May 17, 2025 4:08pm Chondrocalcinosis of left knee resol pauly June 02, 2025 1:55pm Septic arthritis of knee, left resol pauly June 02, 2025 1:55pm [facility] Work Phone: 1(392) 771-783306-21-2025 Evaluation note* Diagnosis Onset Date Resolution Status Admit Date Chondrocalcinosis of left knee resol pauly May 17, 2025 4:08pm Septic arthritis of knee, left resol pauly May 17, 2025 4:08pm Chondrocalcinosis of left knee resol pauly June 02, 2025 1:55pm Septic arthritis of knee, left resol pauly June 02, 2025 1:55pm Multiple lung nodules acute May 10:49am [facility] Work Phone: 1(615) 771-473506-21-2025 Consult note Author Phani Oneil [facility] Note Date/Time May 17, 2025 4:[address] [facility] Medical Records Department [address] [place] [address] Anesthesia Postop Eval I 05/17/25 1557 MR#: [id number] Acct: [id number] Name: LUKE DOLAN Rep #:[id number] : 1955 69 From: Phani Oneil MD PCP: TYRONE DEJESUS Status:REG S DC Y Race: C [facility] An[facility]hesia: Postop Eval I Current Vital Signs Temperature: 97.3 F Pulse Rate: 85 Blood Pressure: 128/66 Respiratory Rate: 16 Pulse Ox: 100 Oxygen Delivery Method: Room Air Assessment Airway patent: Yes Spontaneous unlabored respirations: Yes Mental status: Awake and Calm nausea: No Vomiting: No Anesthesia Complication: No Fluid Hydration Crystalloid volume administer (ml): 300 Total IV fluid infused: 300 Progress Note Anesthesia document: Postop Eval 1 completed: Yes 05/17/25 1600 <Electronically signed by Phani merida MD> Date _ Phani Oneil MD Cosigner Signature: Date CC: ~ Signed [facility] Work Phone: [phone]) [phone] Discharge summary Author Mynor [facility] Note Date/Time May 17, 2025 3:42 pm [facility] Medical Records Department [address] [place] [address] Emergency Department Summary 05/17/25 MR#: [id number] Acct: [id number] Name: LUKE DOLAN Rep #:[id number] : 1955 69 From: Mynor De Leon MD PCP: TYRONE DEJESUS Status:REG S DC Location: [facility] A-1 HPI History of Present Illness [...] hernia without obstruction or gangrene Hyperlipidemia Acute [place], anterior wall, subsequent episode of care Old myocardial infarction Syncope and collapse Dyspnea Chest pain Long-term use of high-risk medication Atherosclerotic heart disease of [place] coronary artery without angina pectoris Home Medications [...] % (Auto) 51.0 Lymph % (Auto) 37.9 [place] % (Auto) 9.4 Eos % (Auto) 1.0 [...] effusion. No radiographic foreign body. Reading Location: [id number] Lumbar Spine X-Ray 05/17/25 11:10 IMPRESSION: No acute process identified. Degenerative disc disease Reading [facility] Management Discussion w/another healthcare provider: Physical Therapy Coordinator (Spoke to Dr. Gonzales. Silviall be in to see patient and take [...] left knee Disposition Disposition: [facility] What to do if you have Problems For any increased pain, shortness of breath, bleeding, nausea or vomiting, chestpain, or any unexpected problems, contact your Primary Care Provider. Call [facility] ([phone]) or report to the closest Emergency Room. Call 911 if necessary. 05/17/25 1350 <Electronically signed by Mynor De Leon MD> Cosigner Signature (if applicable): CC: TYRONE DEJESUS ~ Signed ADDENDUM by Dr. Mynor De Leon MD on 05/17/25 at 1542 Preop EKG is normal. Rate is 74. DC interval is 174 ms. QRS duration 84 ms. QT duration 372 ms. [place] is normal 05/17/25 1542<Electronically signed by Mynor De Leon MD> Cosigner Signature (if applicable): cc: TYRONE DEJESUS ~* Signed [facility] Work Phone: 1(816) 127-102906-21-2025 Consult note Author Phani Oneil [facility] Note Date/Time May 17, 2025 3:[address] [facility] Medical Records Department [address] [place] [address] Pre-Anesthesia Evaluation 05/17/25 1447 MR#: [id number] Acct: [id number] Name: LUKE DOLAN Rep #:[id number] : 1955 69 From: Phani Oneil MD PCP: TYRONE DEJESUS Status:REG S DC Y Race: C Location: [place] [address] Phani Oneil MD on [...] left knee. Anesthesia History Anesthesia History - police aide: Anesthesia History - police aide Hx Hospitalization No 08/17/23 08:15 Any Problems [...] sips of water?: Yes PONV PONV - police aide: PONV - police aide Female HX of Motion Sickness HX of N/V After Surgery Non-Smoker Duration of Surgery greater than 60 minutes Number of Risk Factors PONV Score Height & Weight Height & Weight: Anesthesia: Height & Weight Height 5 ft 6 in 05/17/25 13:47 Weight: 78.4 kg 05/17/25 13:47 Body Mass Index (BMI) 27.8 05/17/25 13:47 Respiratory Assessment Respiratory Assessment - police aide: Respiratory Tract Infection Hx - police aide Hx Respiratory Tract Infection No 05/17/25 13:47 STOP Sleep Apnea STOP Sleep Apnea - police aide: STOP Sleep Apnea - police aide Hx Hypertension Yes 05/17/25 13:47 Hx Sleep [...] Tobacco Use History Tobacco Use History - police aide: Tobacco Use History - police aide Tobacco Use Smoking Status Current every day smoker 05/17/25 09:45 Hx Tobacco Use Yes 08/17/23 08:15 Years Smoking Packs Smoked per Day Smoking Cessation Date was within the last 15 years Hx Smoking Cessation Date Hx Smoking Cessation Counseling Hematologic Medial History Hematologic Hx - police aide: 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 Specify any problems Hx of Preganancy in last 3 Months Nurse Filling Out Transfusion & Questions: Date: Time: Patient unable to answer at this time (ie. confused, unrespo /Reproduction History /Reproductive History - police aide: /Reproductive Hx- police aide Hx Now No 05/17/25 13:47 Gestational Age (in weeks): EDC: Hx Hx Para Hx Section SAB No 05/17/25 13:47 PFSH Medical History Diabetes High cholesterol Back pain Gastric reflux Smoker Cardiology follow-up encounter Presence of stent in coronary artery (~08/2008) Essential hypertension Ventral incisional hernia without obstruction or gangrene Hyperlipidemia Acute [place], anterior wall, subsequent episode of care Old myocardial infarction Syncope and collapse Dyspnea Chest pain Long-term use of high-risk medication Atherosclerotic heart disease of [place] coronary artery without angina pectoris Home Medications [...] MD Cosigner Signature: Date CC: ~ Signed [facility] Work Phone: 1(353) 504-217506-21-2025 Consult note Author Dom Gonzales [facility] Note Date/Time May 17, 2025 2:55 pm [facility] Medical Records Department [address] [place] [address] Consultation - Orthopedics 05/17/25 1422 MR#: [id number] Acct: [id number] Name: LUKE DOLAN Rep #:[id number] : 1955 69 From: Dom Gonzales MD PCP: TYRONE DEJESUS COMMUNICATIONS CLERKAleyda Status:REG S DC Location: [place] [address] HPI Consult Data Date of Consult: 05/17/25 [...] sips of coffee. Did not eat lunch. [facility] Medical History Diabetes High cholesterol Back pain Gastric reflux Smoker Cardiology follow-up encounter Presence of stent in coronary artery (~08/2008) Essential hypertension Ventral incisional hernia without obstruction or gangrene Hyperlipidemia Acute [place], anterior wall, subsequent episode of care Old myocardial infarction Syncope and collapse Dyspnea Chest pain Long-term use of high-risk medication Atherosclerotic heart disease of [place] coronary artery without angina pectoris Home Medications [...] % (Auto) 51.0, Lymph % (Auto) 37.9, [place]% (Auto) 9.4, Eos % (Auto) 1.0, Baso [...] effusion. No radiographic foreign body. Reading Location: [facility] Lumbar Spine X-Ray 05/17/25 11:10 IMPRESSION: No acute process identified. Degenerative disc disease Reading Location: [facility] I reviewed the knee x-rays I agree [...] to Dr. Oneil as well as the housekeeping worker at / around 1:45 PM and stressed [...] (2) Septic arthritis of knee, left: 05/17/25 1433 <Electronically signed by Dom Gonzales MD> Cosigner Signature (if applicable): CC: TYRONE DEJESUS~ Signed ADDENDUM by Dr. Dom Gonzales MD on 05/17/25 at 1455 Addendum I ordered IV vancomycin in addition to the ceftriaxone for MRSA coverage given age and comorbidities. 05/17/25 1455<Electronically signed by Dom Gonzales MD> Cosigner Signature (if applicable): cc: TYRONE DEJESUS ~* Signed [facility] Work Phone: 1([phone]) [phone] Consult note [facility] Medical Records Department [address] [place] [address] Anesthesia Postop Eval II 05/17/25 1617 MR#: [id number] Acct: [id number] Name: LUKE DOLAN Rep #:[id number] : 1955 69 From: Phani Oneil MD PCP: TYRONE DEJESUS Status:REG S DC Y Race: C Location: [place] [address] Anesthesia Postop Eval I Sum Postop Eval Completion status Anesthesia document: Postop Eval 1 completed: Yes Anesthesia Postop Eval I Summary Anesthesia Postop Eval I Summary: Anesthesia Postop Eval I: Assessment Summary 3 Airway patent Yes 05/17/25 16:00 Spontaneous unlabored Yes 05/17/25 16:00 respirations Mental status Awake,Calm 05/17/25 16:00 nausea No 05/17/25 16:00 Vomiting No 05/17/25 16:00 Anesthesia Postop Eval I: Fluid Summary Crystalloid volume administer 300 05/17/25 16:00 (ml) Colloids volume administered ( ml) Blood Product volume administered (ml) Total IV fluid infused 300 05/17/25 16:00 Anesthesia Postop Eval I: Summary Notes Anesthesia Complication No 05/17/25 16:00 Anesthesia Complication Comment: Post-operative progress note Anesthesia: Postop Eval II Evaluation Mental status: Awake and Calm Pain Level: 1 nausea: No Vomiting: No Complications Anesthesia Complication: No 05/17/25 1618 la > Date _ Phani Oneil MD Cosigner Signature: Date CC: ~ Signed [facility]06-21-2025 Consult note [facility] Medical Records Department [address] [facility] [place] [address] Anesthesia Postop Eval I 05/17/25 1557 MR#: [id number] Acct: [id number] Name: LUKE DOLAN Rep #:[id number] : 1955 69 From: Phani Oneil MD PCP: TYRONE DEJESUS COMMUNICATIONS CLERKAleyda Status:REG S DC Y Race: C Location: [place] [address] Anesthesia: Postop Eval I Current Vital Signs Temperature: 97.3 F Pulse Rate: 85 Blood Pressure: 128/66 Respiratory Rate: 16 Pulse Ox: 100 Oxygen Delivery Method: Room Air Assessment Airway patent: Yes Spontaneous unlabored respirations: Yes Mental status: Awake and Calm nausea: No Vomiting: No Anesthesia Complication: No Fluid Hydration Crystalloid volume administer (ml): 300 Total IV fluid infused: 300 Progress Note Anesthesia document: Postop Eval 1 completed: Yes 05/17/25 1600 fuad GUEVARA> Date _ Phani Oneil MD Cosigner Signature: Date CC: ~ Signed [facility]06-21-2025 Procedure note [facility] Medical Records Department [address] [place] [address] Operative Report 05/17/25 1545 MR#: [id number] Acct: [id number] Name: LUKE DOLAN Rep #:[id number] : 1955 69 From: Dom Gonzales MD PCP: TYRONE DEJESUS COMMUNICATIONS CLERKAleyda Status:REG S DC Location: [facility] A- Problems Associated Problem List Diagnoses (1) Septic arthritis of knee, left: (2) Chondrocalcinosis of left knee: Procedures Musculoskeletal 20xxx-29xxx: Other Procedure See Report Operative Report (Standard) Operative Information Date of Procedure: 05/17/25 Pre-Operative Diagnosis: Left septic knee as well as chondrocalcinosis Post-Operative Diagnosis: Same Surgery/Procedure Performed: Left surgery irrigation and debridement, extensive,removal loose body geospatial intelligence analyst: No Type of Anesthesia: General and Local RN Documented Start/Stop Times: Operation Date: 05/17/25 15:20 Case Time Anesthesia Start 05/17/25 15:05 Into Room 05/17/25 15:05 Procedure Start 05/17/25 15:25 Procedure End 05/17/25 15:42 Procedure Start Time: 15:25 Procedure Stop Time: 15:42 Select all DRAINS/GRAFTS/IMPLANTS that apply: None Estimated Blood Loss: 10 Specimen collected: No Description of surgery: Patient brought the operating room theater. Placed supine on the table. General anesthesia induced.The patient had received ceftriaxone previously in the emergency department as well as vancomycin mid way through the case I had ordered this preoperatively that was the soonest the patient could receive that. All bony prominences padded. SCD on the nonoperative leg. Tourniquet applied to left thigh a stress positioner used the patient's left side. Lower extremityprepped and draped in the usual sterile fashion with chlorhexidine- based prep solution allowing over 3 minutes drying time prior to draping. Preoperative timeout performed to confirm the site patient and the surgery. Began by elevating the limb inflating the tourniquet to 250 mmHg. Use standard anterolateral and anteromedial arthroscopy portals. Did a full diagnostic arthroscopy. Pictures saved throughout. Did a debridement synovectomy in all 3 compartments. There is a medial sided plica I debrided that. Underneath this there was some grade 2 cartilage changes on the distal medial femoral condyle. Cartilage in the medial side had grade 1-2 changes grade 1 changes only on the lateral side. Patellofemoral joint had grade 2-3 changes. There is chondrocalcinosis in all 3 compartments I removed any calcium deposits that I was able to visualize and appropriately remove. The medial and lateral meniscusappear normal stable to probing. The ACL was normal I remove the ligamentum mucosum. There is a loose body developing in the anterior prepatellar fat pad Iremoved this as well. There is a minor amount of synovitis. There is a small joint effusion when I initially put in the arthroscope. I thoroughly irrigated and debrided the knee in all 3 compartments with 6 L of normal saline. Case was terminated meticulous hemostasis achieved tourniquet let down. Wounds cleaned with wet drydressing close with the portal sites with 3-0 Monocryl. This was followed by instillation of 10 cc of quarter percent bupivacaine in andaround the incision sites. Steri-Strips Adaptic 4 x 4 gauze ABDdressing with Donta wrap loosely wrapped around the knee was then placed. Patient woken up from general anesthetic transferred off the operating table taken postanesthetic. In stable condition. All sponge needle instrument countswere correct no complications. Plan for the patient admitting under medicine (Dr. Noble disla already) PT OT socialwork to see weightbearing as tolerated range of motion as tolerated VTE prophylaxis per the hospitalist and recommend IV broad spec antibiotics until the cultures are back and they may be tailored and stepdown eventually as well as daily blood work to follow the inflammatory markers. I am happy to follow patient as anoutpatient change dressing every 1 to 2 days try to avoid getting the incisions wet. CPT 68635, 55191 Surgical Findings: As above Complications Complications: No Admit VTE Documentation VTE Present on Admission: No VTE Mechan Device Prophylaxis: SCD's VTE Pharm Prophylaxis ordered?: No Reason prophylaxis not ordered: Treatment Not Indicated 05/17/25 2431 Cosigner Signature (if applicable): CC: Dr. Dom Gonzales MD; TYRONE HORTON OLEG~ Signed [facility]06-21-2025 Discharge summary [facility] Medical Records Department [address] [place] [address] Emergency Department Summary 05/17/25 MR#: [id number] Acct: [id number] Name: LUKE DOLAN #:[id number] : 1955 69 From: Mynor D eLeon MD PCP: TYRONE DEJESUS COMMUNICATIONS CLERK-C Status:REG S DC Location: [facility] AC-TB A-1 HPI History of Present [...] hernia without obstruction or gangrene Hyperlipidemia Acute [place], anterior wall, subsequent episode of care Old myocardial infarction Syncope and collapse Dyspnea Chest pain Long-term use of high-risk medication Atherosclerotic heart disease of [place] coronary artery without angina pectoris Home Medications [...] % (Auto) 51.0 Lymph % (Auto) 37.9 [place] % (Auto) 9.4 Eos % (Auto) 1.0 [...] effusion. No radiographic foreign body. Reading Location: [facility] Lumbar Spine X-Ray 05/17/25 11:10 IMPRESSION: No acute process identified. Degenerative disc disease Reading [facility] Discussion w/another healthcare provider: Physical Therapy Coordinator (Spoke to Dr. Gonzales. Silviall be in to see patient and take [...] left knee Disposition Disposition: [facility] What to do if you have Problems For any increased pain, shortness of breath, bleeding, nausea or vomiting, chestpain, or any unexpected problems, contact your Primary Care Provider. Call [facility] ([phone]) or report tothe closest Emergency Room. Call 911 if necessary. 05/17/25 1350 Cosigner Signature (if applicable): CC: TYRONE MORGAN-C OLEG ~ Signed ADDENDUM by Dr. Mynor De Leon MD on 05/17/25 at 1542 Preop EKG is normal. Rate is 74. DC interval is 174 ms. QRS duration 84 ms. QT duration 372 ms. [place] is normal 05/17/25 1542 Cosigner Signature (if applicable): cc: TYRONE MORGAN-C OLEG ~* Signed [facility]06-21-2025 Consult note [facility] Medical Records Department [address] [place] [address] Pre-Anesthesia Evaluation 05/17/25 1447 MR#: [id number] Acct: [id number] Name: LUKE DOLAN Rep #:[id number] : 1955 69 From: Phani Oneil MD PCP: TYRONE DEJESUS COMMUNICATIONS CLERKRogersC Status:REG S DC Y Race: C Location: [place] [address] Phani Oneil MD on 05/17/25 at 1504 Addendum Patient had black coffee at about 1:00pm 05/17/25 1504 fuad GUEVARA> Date _ Phani Oneil MD cc: ~* [...] dentures.) and Missing (Patient is edentulous on thebottom.) Neck Range of motion (ROM): Limited ROM [...] left knee. Anesthesia History Anesthesia History - police aide: Anesthesia History - police aide Hx Hospitalization No 08/17/23 08:15 Any Problems [...] sips of water?: Yes PONV PONV - police aide: PONV - police aide Female HX of Motion Sickness HX of N/V After Surgery Non-Smoker Duration of Surgery greater than 60 minutes Number of Risk Factors PONV Score Height & Weight Height & Weight: Anesthesia: Height & Weight Height 5 ft 6 in 05/17/25 13:47 Weight: 78.4 kg 05/17/25 13:47 Body Mass Index (BMI) 27.8 05/17/25 13:47 Respiratory Assessment Respiratory Assessment - police aide: Respiratory Tract Infection Hx - police aide Hx Respiratory Tract Infection No 05/17/25 13:47 STOP Sleep Apnea STOP Sleep Apnea - police aide: STOP Sleep Apnea - police aide Hx Hypertension Yes 05/17/25 13:47 Hx Sleep [...] than talking or can be heard through closeddoors)? 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 Specify any problems Hx of Preganancy in last 3 Months Nurse Filling Out Transfusion & Questions: Date: Time: Patient unable to answer at this time (ie. confused, unrespo /Reproduction History /Reproductive History - police aide: /Reproductive Hx- police aide Hx Now No 05/17/25 13:47 Gestational Age (in weeks): EDC: Hx Hx Para Hx Section SAB No 05/17/25 13:47 PFSH Medical History Diabetes High cholesterol Back pain Gastric reflux Smoker Cardiology follow-up encounter Presence of stent in coronary artery (~08/2008) Essential hypertension Ventral incisional hernia without obstruction or gangrene Hyperlipidemia Acute [place], anterior wall, subsequent episode of care Old myocardial infarction Syncope and collapse Dyspnea Chest pain Long-term use of high-risk medication Atherosclerotic heart disease of [place] coronary artery without angina pectoris Home Medications [...] additional complaints, except as documented. 05/17/25 1503 fuad GUEVARA> Date _ Phani Oneil MD Cosigner Signature: Date CC: ~ Signed [facility]06-21-2025 Consult note [facility] Medical Records Department [address] [place] [address] Consultation - Orthopedics 05/17/25 1422 MR#: [id number] Acct: [id number] Name: LUKE DOLAN Rep #:[id number] : 1955 69 From: Dom Gonzales MD PCP: TYRONE DEJESUS COMMUNICATIONS CLERKAleyda Status:REG S DC Location: [place] [address] HPI Consult Data Date of Consult: 05/17/25 [...] cigarettes a day. Patient been n.p.o. since about1:00 he had a few sips of coffee. Did not eat lunch. [facility] Medical History Diabetes High cholesterol Back pain Gastric reflux Smoker Cardiology follow-up encounter Presence of stent in coronary artery (~08/2008) Essential hypertension Ventral incisional hernia without obstruction or gangrene Hyperlipidemia Acute [place], anterior wall, subsequent episode of care Old myocardial infarction Syncope and collapse Dyspnea Chest pain Long-term use of high-risk medication Atherosclerotic heart disease of [place] coronary artery without angina pectoris Home Medications [...] a small effusion. There is mild warmth. Noobvious overlying redness. The range of motion right [...] % (Auto) 51.0, Lymph % (Auto) 37.9, [place]% (Auto) 9.4, Eos % (Auto) 1.0, Baso [...] RBC 0.008 H, Synovial Tot Cell Ct 15.3980H, Synov Polynuclear WBCs 11.969, Synov Mononuclear WBCs 1.353, Synovial Neutrophils 73 H, SynovialLymphocytes 1, Synovial Monocytes 26, Synovial Polynuclear % [...] effusion. No radiographic foreign body. Reading Location: [facility] Lumbar Spine X-Ray 05/17/25 11:10 IMPRESSION: No acute process identified. Degenerative disc disease Reading Location: [facility] I reviewed the knee x-rays I agree [...] joint. Lower on the differential would be afalse negative for pseudogout although these diagnoses can [...] to Dr. Oneil as well as the housekeeping worker at / around 1:45 PM and stressed the emergency nature of this case E1/JAMES. I also explained that to the patient and his family and nursing staff also aware. Assoon as the call team arrives we will [...] (2) Septic arthritis of knee, left: 05/17/25 1433 Cosigner Signature (if applicable): CC: TYRONE DEJESUS~ Signed ADDENDUM by Dr. Dom Gonzales MD on 05/17/25 at 1455 Addendum I ordered IV vancomycin in addition to the ceftriaxone for MRSA coverage given age and comorbidities. 05/17/25 1455 Cosigner Signature (if applicable): cc: TYRONE DEJESUS ~* Signed [facility]06-21-2025 Discharge summary Author Mynor De Leon [facility] Note Date/Time May 17, 2025 1:50 pm [facility] Medical Records Department [address] [place] [address] Emergency Department Summary 05/17/25 MR#: [id number] Acct: [id number] Name: LUKE DOLAN Rep #:[id number] : 1955 69 From: Mynor De Leon MD PCP: TYRONE DEJESUS Status:REG S DC Location: [facility] A-1 HPI History of Present Illness [...] hernia without obstruction or gangrene Hyperlipidemia Acute [place], anterior wall, subsequent episode of care Old myocardial infarction Syncope and collapse Dyspnea Chest pain Long-term use of high-risk medication Atherosclerotic heart disease of [place] coronary artery without angina pectoris Home Medications [...] % (Auto) 51.0 Lymph % (Auto) 37.9 [place] % (Auto) 9.4 Eos % (Auto) 1.0 [...] effusion. No radiographic foreign body. Reading Location: [facility] Lumbar Spine X-Ray 05/17/25 11:10 IMPRESSION: No acute process identified. Degenerative disc disease Reading [facility] Management Discussion w/another healthcare provider: Physical Therapy Coordinator (Spoke to Dr. Gonzales. Hewill be [...] left knee Disposition Disposition: [facility] Care [facility] What to do if you have Problems For any increased pain, shortness of breath, bleeding, nausea or vomiting, chestpain, or any unexpected problems, contact your Primary Care Provider. Call [facility] ([phone]) or report to the closest Emergency Room. Call 911 if necessary. 05/17/25 1350 <Electronically signed by Mynor De Leon MD> Cosigner Signature (if applicable): CC: TYRONE DEJESUS ~ Signed [facility] Work Phone: [phone]) 780-157906-21-2025 Discharge summary [facility] Medical Records Department [address] [place] [address] Emergency Department Summary 05/17/25 MR#: [id number] Acct: [id number] Name: LUKE DOLAN Rep #:[id number] : 1955 69 From: Mynor De Leon MD PCP: TYRONE DEJESUS Status:REG S DC Location: [facility] A-1 HPI History of Present Illness [...] hernia without obstruction or gangrene Hyperlipidemia Acute [place], anterior wall, subsequent episode of care Old myocardial infarction Syncope and collapse Dyspnea Chest pain Long-term use of high-risk medication Atherosclerotic heart disease of [place] coronary artery without angina pectoris Home Medications [...] % (Auto) 51.0 Lymph % (Auto) 37.9 [place] % (Auto) 9.4 Eos % (Auto) 1.0 [...] effusion. No radiographic foreign body. Reading Location: [facility] Lumbar Spine X-Ray 05/17/25 11:10 IMPRESSION: No acute process identified. Degenerative disc disease Reading [facility] Management Discussion w/another healthcare provider: Physical Therapy Coordinator (Spoke to Dr. Gonzales. Luiswill be in to see patient and take [...] left knee Disposition Disposition: Acute Care [facility] What to do if you have Problems For any increased pain, shortness of breath, bleeding, nausea or vomiting, chestpain, or any unexpected problems, contact your Primary Care Provider. Call [facility] ([phone]) or report tothe closest Emergency Room. Call 911 if necessary. 05/17/25 1350 Cosigner Signature (if applicable): CC: TYRONE HORTON OLEG ~ Signed [facility]06-21-2025 Radiology Diagnostic study note [facility] Imaging Services [address] [place] [address] Lumbar Spine 2 or 3 Views MR#: [id number] Acct: [id number] Name: LUKE DOLAN Rep #: [id number] : 1955 M 69 From: Sanam Licea DO PCP: TYRONE DEJESUS Status: REG E R Study:Lumbar Spine 2 or 3 Views Date of Exam: 05/17/25 Exam# [id number] Ordering Dr: Oh De Leon MD PROCEDURE: [...] process identified. Degenerative disc disease Reading Location[facility] CC: Dr. Mynor De Leon MD; TYRONE Workman Youth Services Librarian: Signed [facility]06-21-2025 Radiology Diagnostic study note [facility] Imaging Services [address] [place], [place] [address] Knee 4 or More Views MR#: [id number] Acct: [id number] Name: LUKE DOLAN Rep #: [id number] : 1955 M 69 From: Yaneth Amor MD PCP: TYRONE DEJESUS Status: REG E R Study:Knee 4 or More Views Date of Exam: 05/17/25 Exam# [id number] Ordering Dr: Oh De Leon MD PROCEDURE: KNEE 4 OR MORE VIEWS 05/17/2025 REASON FOR EXAM: INJURY/PAIN TECHNIQUE: KNEE 4 OR MORE VIEWS COMPARISON: none RAD/Knee 4 or More Views IMPRESSION: No acute fracture or dislocations. Mild to moderate degenerative changes of theleft knee with chondrocalcinosis. Moderate soft tissue edema. Large joint effusion. No radiographic foreign body. Reading Location: [facility] CC: Dr. Mynor De Leon MD; TYRONE DEJESUS ~ Youth Services Librarian: Signed [facility]06-02-2025 Telephone encounter Note* Telephone Encounter - Phoenix Thompson RN - 04/28/2025 4:36 PM EDT Opened in error [facility]06-02-2025 Miscellaneous Notes* Telephone Encounter - Phoenix Thompson RN - 04/28/2025 4:36 PM EDT Opened in [facility] Telephone encounter Note * Telephone Encounter - Phoenix Thompson RN - 04/23/2025 2:30 PM EDT I called and left a message on 04/11/25 and again today in an attempt to reschedule esophageal manometry. I left my contact information. Phoenix Thompson RN [facility]05-28-2025 Miscellaneous Notes* Telephone Encounter - Phoenix Thompson RN - 04/23/2025 2:30 PM EDT I called and left a message on 04/11/25 and again today in an attempt to reschedule esophageal manometry. I left my contact information. Phoenix Thompson RN [facility] Telephone encounter Note * Telephone Encounter - Phoenix Thompson RN - 03/17/2025 10:24 AM EDT I called patient to reschedule his esophageal manometry but patient asked if I would call him back in a week. He said he is scheduled for another test at [facility] and would like to get that completed first. I agreed to call him back. Phoenix Thompson RN [facility]04-21-2025 Miscellaneous Notes* Telephone Encounter - Phoenix Thompson RN - 03/17/2025 10:24 AM EDT I called patient to reschedule his esophageal manometry but patient asked if I would call him back in a week. He said he is scheduled for another test at [facility] and would like to get that completed first. I agreed to call him back. Phoenix Thompson RN [facility] Telephone encounter Note * Telephone Encounter - Tess White LPN - 12/11/2024 2:58 PM EST Rescheduled for 02/28/2025 10am. Tess White LPN [facility] Work Phone: [phone] Miscellaneous Notes* Telephone Encounter - Tess White LPN - 12/11/2024 2:58 PM EST Rescheduled for 02/28/2025 10am. Tess White LPN * Telephone Encounter - Tess White LPN - 12/11/2024 11:37 AM EST Patient called and cancelled manometry for 12/12/24, does not want to reschedule until late January early February. Tess White LPN [facility] Telephone encounter Note * Telephone Encounter - Tess White LPN - 12/11/2024 11:37 AM EST Patient called and cancelled manometry for 12/12/24, does not want to reschedule until late January early February. Tess White LPN [facility]01-06-2025 Telephone encounter Note* Telephone Encounter - Phoenix Thompson, LUZ - 12/02/2024 4:33 PM EST I called patient and informed him that per Dr. Briones, he is to start holding his Plavix on 12/06/24 and restart it on 12/13/24. Patient agreed with the plan. Phoenix Thompson RN [facility]01-06-2025 Miscellaneous Notes* Telephone Encounter - Phoenix Thompson, LUZ - 12/02/2024 4:33 PM EST I called patient and informed him that per Dr. Briones, he is to start holding his Plavix on 12/06/24 and restart it on 12/13/24. Patient agreed with the plan. Phoenix Thompson RN [facility] Telephone encounter Note * Telephone Encounter - Pat Martin LPN - 11/29/2024 9:07 AM EST Clearance/medication recommendation scanned into chart for review [facility]01-03-2025 Miscellaneous Notes* Telephone Encounter - Pat Martin LPN - 11/29/2024 9:07 AM EST Clearance/medication recommendation scanned into chart for review [facility]-2024 Telephone encounter Note * Telephone Encounter [...] Wilde for test results. Phoenix Thompson RN [facility]12-17-2024 Miscellaneous Notes* Telephone Encounter - Phoenix [...] results. Phoenix Thompson RN [facility]24 Note ORIGINAL HISTORY: Reflux and dysphagia [...] Sign Date: 10/31/2024 11:49:46 AM Ordering Provider: [facility]11-25-2024 Evaluation + Plan noteExtracted from: Title:Clinical Document Author:LOCO WIDLE Date:10/21/24 ETHEL ADMISSION HISTORY AN D PHYSICIAL CHIEF COMPLAINT: HISTORY OF PRESENT ILLNESS: REVIEW OF SYSTEMS: ACTIVE PROBLEMS: (20) Back spasm (138089091) Cervical disc disease (2020115303) Chronic neck and back pain (966424829) COPD without exacerbation (95135198) Coronary artery disease (4586728933) DDD (degenerative disc disease), lumbar (15869831) Diabetes mellitus (901932583) Dysphagia (749973579) Esophageal reflux disease (604267898) Essential hypertension (42927630) Hx [place], P/S, hernia repair x7, smoker Hyperlipidemia (879087701) Left hip pain (02361291) Leukocytosis (734661087) Primary insomnia (4659029) Screening for prostate cancer (288028008) Smokes less than 1 pack a day with greater than 40 pack year history (412577983) Tobacco dependence due to cigarettes (5400470922) Tobacco use (1496110975) Ventral hernia (6434448642) MEDICATIONS: Active Inpt Meds: None Active PRN Meds: None One Time Meds: None Active IV Meds: Lactated Ringers Infusion 1,000 mL (LR 1,000 mL) Start: 10/21/24 7:42:00 EST, Rate: 50 mL/hr, 10/21/24 7:42:00 EST ALLERGIES: (1) Zetia FAMILY HISTORY: SOCIAL HISTORY: PHYSICAL EXAM: VITALS: QzdgthFpalFMHnrjrAGQdC4YBO3KgjnFn(kg) 10/21 07:5436.2--611775LB43/25 76.2 24 Hr Tmax: 36.2 at 10/21 [...] Appointments Appointment Date:10/31/2024 10:30:00 AM Scheduled Provider: Location:[facility] Appointment Type:XR Esophogram W/Barium Tablet Appointment Date:11/06/2024 11:00:00 AM Scheduled Provider:CAMDEN BRIONES DO Location:[facility] Appointment Type:PC OV Controlled Medication Future Scheduled Tests Laboratory* Complete Blood Count 07/30/24 * Lipid Profile 07/30/24 * Albumin/Creatinine Ratio, Random Urine 05/01/24 Radiology* XR Esophogram W/Barium Tablet 10/31/24 [facility] 11-25-2024 Hospital Discharge instructions Patient Education [...] before eating solid foods. General instructions Take azvw-mji-jckkrjd and prescription medicines only as told by [...] 03/05/2017 Document Revised: 02/11/2019 Document Reviewed: 03/05/2017 [employer] Patient Education 2020 inTarvo. 10/21/2024 09:40:15 9 - AO Minor Esophagogastroduodenoscopy [...] intestine that attaches to the stomach. This test is used to detect problems in the [...] 10/17/2024 07:45:04 With:LOCO WILDE Address: [address] [phone] Business (1) When: Unknown [facility] 11-25-2024 Note Date of Service 10/21/2024 Procedure Name EGD with biopsy Consent Taken before procedure Indication Patient with dysphagia Location [facility] Pre-Procedure Exam Dysphagia Procedural Sedation Anesthesia [...] ESOPHAGOGASTRODUODENOSCOPY WITH BIOPSY, DYSPHAGIA, DYSPHAGIA, Preferred Lab: [facility] [place], [phone] Post Procedure Assessment, 10/21/24 9:38:00 EST, Stop [...] LOCO WILDE MD on 10/21/2024 09:[address] [facility]11-25-2024 Note Discharge Instructions Thank you for allowing [facility] to assist you with your healthcare needs. The following is importantdischarge information regarding your hospital visit. Your Care Team CAMDEN BRIONES DO What to do next Scheduled Follow-Up Appointments Appointment Type When With Where Contact Information StatusXR Esophogram W/Barium Tablet 0:30 AM [facility] [phone] Confirmed PC OV Controlled Medication 11/06/2024 11:00 AM EST CAMDEN BRIONES DO [facility] Confirmed Follow Up Appointments Follow Up with LOCO WILDE Where:[address] [phone] [facility] (1) The Following Activity and Diet Have [...] before eating solid foods. General instructions Take jnbo-slh-auiutkp and prescription medicines only as told by [...] 03/05/2017 Document Revised: 02/11/2019 Document Reviewed: 03/05/2017 [employer] Patient Education 2020 [employer] Esophagogastroduodenoscopy This is an endoscopic procedure [...] intestine that attaches to the stomach. This test is used to detect problems in the [...] to receive it can visit one of [facility] vaccine clinics. There are many vaccine clinic locations within the [facility]. For locations and available times, please visit [email or web address] It is important to note that some COVID mobile vaccine clinics are held outdoors and may be canceled in rainy or stormy conditions. To learn more about pediatric vaccinations (ages 5-11), we invite you to visit the [facility] webpage. [email or web address] [email or web address] learn more about the COVID-19 vaccine, we invite you to visit the CDC website for a list of frequently asked questions.https://www.cdc.gov/coronavirus/2019-ncov/vaccines/faq.html [employer] Patient Portal Access Instructions: Stay connected with your healthcare team and access your personal medical information anytime with the [employer] Patient Portal. Please follow the directions below to create your [employer] account: 1.Access the email account you provided upon registration to the hospital/physician office.2.Look for an invitation email from [facility].3.Open the email and access the invitation link: AcceptInvitation to [employer].4.Fill in the required joaquin to create your account. To access your account, visit [email or web address]. Click the blue button labeled Access Patient [...] who you will allowto register on the [facility] [employer] Patient Portal for access to your information. You can also access the [facility] [employer] Patient Portal on the [facility] lauren. Simply click on Patient Portal and then log into your account. If you would like to receive a full copy of your medical records, please contact the [facility] Medical Records Department by calling [phone], Monday through Monday between 8 a.m. and [...] Call your local pharmacy or go to [email or web address] to find one close to you.3.Make use of household items: Use cat litter or old coffee grounds to dispose medications if other options arenot available. Mix your drugs with these household products, seal them in an airtight container andthrow it into the garbage. Call [facility]: [phone] to be sure your drugs can be [...] am aware that I should contactmy doctor. Patient/Folder Hand Signature: Date/Time: Relationship to Patient: Witness Name/Signature: Date/Time: [facility]11-25-2024 Anesthesiology Consult note Patient: LUKE DOLAN SR Age: 69 years Sex: Male : 1955 Associated Diagnoses: None Author: AFSHIN ZHENG APRN-MARKET RISK MANAGER Assessment Postanesthesia assessment Vitals: Vital signs from [...] within normal limits. Digitally Signed by AFSHIN ZHENGMARKET RISK MANAGER on 10/21/2024 09:[address] [facility]11-25-2024 Note ETHEL ADMISSION HISTORY AND PHYSICIAL CHIEF COMPLAINT: HISTORY OF PRESENT ILLNESS: REVIEW OF SYSTEMS: ACTIVE PROBLEMS: (20) Back spasm (311002053) Cervical disc disease (6589693734) Chronic neck and back pain (182764958) COPD without exacerbation (91619273) Coronary artery disease (8268134586) DDD (degenerative disc disease), lumbar (65195697) Diabetes mellitus (585681768) Dysphagia (034937637) Esophageal reflux disease (815610063) Essential hypertension (31859299) Hx [place], P/S, hernia repair x7, smoker Hyperlipidemia (375244587) Left hip pain (22634867) Leukocytosis (075730233) Primary insomnia (9048589) Screening for prostate cancer (194421526) Smokes less than 1 pack a day with greater than 40 pack year history (608569242) Tobacco dependence due to cigarettes (2713177723) Tobacco use (1000224739) Ventral hernia (1998231303) MEDICATIONS: Active Inpt Meds: None Active PRN Meds: None One Time Meds: None Active IV Meds: Lactated Ringers Infusion 1,000 mL (LR 1,000 mL) Start: 10/21/24 7:42:00 EST, Rate: 50 mL/hr, 10/21/24 7:42:00 EST ALLERGIES: (1) Zetia FAMILY HISTORY: SOCIAL HISTORY: PHYSICAL EXAM: VITALS: FguxzgYsooNKHbndyYCQfN4AZO2YliyKk(kg) 10/21 07:5436.2--915405PT58/25 76.2 24 Hr Tmax: 36.2 at 10/21 [...] LOCO WILDE MD on 10/21/2024 09:[address] [facility]11-25-2024 Anesthesiology Consult note Patient: LUKE DOLAN SR Age: 69 years Sex: Male : 1955 Associated Diagnoses: None Author: AFSHIN ZHENG APRN-MARKET RISK MANAGER Preoperative Information Time of last food or [...] Medical Cervical disc disease / SNOMED CT 5592822738 / Confirmed COPD without exacerbation / SNOMED CT 64307074 / Confirmed Chronic neck and back pain / SNOMED CT 641792551 / Confirmed Smokes less than 1 pack a day with greater than 40 pack year history / SNOMED CT 299220788 / Confirmed Coronary artery disease / SNOMED CT 9871262584 / Confirmed DDD (degenerative disc disease), lumbar / SNOMED CT 23662043 / Confirmed Diabetes mellitus / SNOMED CT 496922723 / Confirmed Essential hypertension / SNOMED CT 35929910 / Confirmed Esophageal reflux disease / SNOMED CT 015236378 / Confirmed Ventral hernia / SNOMED CT 6376382149 / Confirmed Left hip pain / SNOMED CT 96513592 / Confirmed Leukocytosis / SNOMED CT 747807410 / Confirmed Hyperlipidemia / SNOMED CT 347219237 / Confirmed Dysphagia / SNOMED CT 398620001 / Confirmed Screening for prostate cancer / SNOMED CT 013505356 / Confirmed Primary insomnia / SNOMED CT 6132856 / Confirmed Back spasm / SNOMED CT 335570460 / Confirmed Tobacco dependence due to cigarettes / SNOMED CT 0640115223 / Confirmed Resolved: Cough / SNOMED CT 30264800 Canceled: COPD exacerbation / SNOMED CT 469789392 Canceled: Cervical disc disease / SNOMED CT 3386642697 Canceled: Neoplasm of skin of face / SNOMED CT 68094005 Canceled: Pre-op exam / SNOMED CT 001799822 Canceled: Viral upper respiratory tract infection with cough / SNOMED CT 975065226, Active Problems (20) Back spasm Cervical disc disease Chronic neck and back pain COPD without exacerbation Coronary artery disease DDD (degenerative disc disease), lumbar Diabetes mellitus Dysphagia Esophageal reflux disease Essential hypertension Hx [place], P/S, hernia repair x7, smoker Hyperlipidemia Left hip pain Leukocytosis Primary insomnia Screening for prostate cancer Smokes less than 1 pack a day with greater than 40 pack year history Tobacco dependence due to cigarettes Tobacco use Ventral hernia Histories Past Medical History: Resolved Cough (63388536): Resolved. Family History: Cancer Father Comments: 07/08/2019 10:37 Vita Garibay LPN lung cancer Hypertension Mother Hyperlipidemia Mother Procedure history: Extracapsular cataract removal with insertion of intraocular lens prosthesis (1 stage procedure), manual or mechanical technique (eg, irrigation and aspiration or phacoemulsification); with endoscopic cyclophotocoagulation (02707) on 08/03/2023 at 68 Years. Comments: 08/09/2023 10:38 Vita Garibay LPN right eye-[facility] Cataract extraction and insertion of intraocular lens (1792411211) on 01/25/2017 at 61 Years. Comments: 07/05/2019 13:09 Tawny Brown LPN Left Inguinal hernia (9082608413) in 2012 at 58 Years. Comments: 07/05/2019 13:09 Tawny Brown LPN Repair Cholecystectomy (89482762) in 2010 at 56 Years. Stent placement (354476653) in 2009 at 55 Years. Comments: 07/05/2019 13:10 Tawny Brown LPN multiple stents Tonsillectomy (786597163). Social History: Social & Psychosocial Habits Alcohol [...] Signs (last 24 hrs) Last Charted Temp Mcapqapr09.2 DegC (OCT 21 07:54) Heart Rate Thrjuj35 bpm (OCT 21 07:54) SBPH 146 mmHg (OCT 21 07:54) DBP74 mmHg (OCT 21 07:54) Measurements from flowsheet : Measurements 10/21/2024 7:54 EST Height 167.5 cm Height in inches 65.9 inch(es) Admission Weight 76.2 kg Weight Lbs 167.6 lb [place] Body Weight 63.67 kg 10/21/2024 7:49 EST Height 167.5 cm [place] Body Weight 63.67 kg Pain assessment: Pain [...] Present Present Anesthesia Extension Set Applied Yes Medical Office Receptionist On Yes 10/21/2024 8:03 EST Continuous IV [...] Palpation Non-Tender Skin Temperature Warm Skin Description [place], Normal for ethnicity Skin Integrity Intact Skin [...] Weight 76.2 kg Weight Lbs 167.6 lb [place] Body Weight 63.67 kg Temperature Temporal Artery [...] Privacy Restrictions Requested None Height 167.5 cm [place] Body Weight 63.67 kg Status N/A Sensory [...] evident Teaching Method Explanation Preferred Spoken Language [place] Preferred Written Language [place] Patient's Current Physicians [facility] Discharge To, Anticipated Home independently [...] Intake 10/20/2024 8:00 . Assessment and Plan [place] Society of Anesthesiologists (ASA) physical status classification: Class III. Anesthetic Preoperative Plan Premedication: intravenous. Anesthetic technique: MAC. Induction: intravenously. Maintenance airway: Mask. Risks discussed: nausea, vomiting, headache, sore throat, dental injury, hypotension, allergic reaction, serious complications. Informed consent: signed by patient. Digitally Signed by AFSHIN ZHENG on 10/21/2024 08:18 AM Digitally Signed by AFSHIN ZHENG on 10/21/2024 09:[address] [facility]10-02-2023 Procedure [facility]10-02-2023 History and physical note Author Chary Fontaine [facility] August 28, 2023 12:01pm Note Date/Time August 28, 2023 11 :56am [facility] Medical Records Department [address] [place] [address] History & Physical Exam 08/28/23 1156 MR#: [id number] Acct: [id number] Name: LUKE DOLAN Rep #:[id number] : 1955 68 From: Chary Fontaine MD PCP: Dr. Camden Briones DO Status[facility] Location: [place] [address] History and Physical Date of Admission: 08/28/23 Date of Service: 08/07/23 MR#: [id number] Acct: [id number] Name: LUKE DOLAN . Rep #: [id number] : 1955 Provider: Dr. Chary Fontaine MD Age/Sex: 68/M Location: [facility] Status: Signed Intake Vital Signs 06/09/2309:42 08/07/2314:09 [...] [Rx Confirmed 08/07/23] PFSH Medical History Acute [place], anterior wall, subsequent episode of care Atherosclerotic heart disease of [place] coronary artery without angina pectoris Chest pain [...] healthy appearing, comfortable and no acute distress [facility] Head: normocephalic and atraumatic Neck Neck: [...] Agreed to proceed. Chary Fontaine M.D. Pager: [phone] [facility] [address] [place] [address], [facility], [address] [place] [address] Office: [phone] Coding Level of Care Code Off vis,est,level [...] Cosigner Signature (if applicable): cc: Dr. Camden Briones DO; Dr. Chary Fontaine MD ~* Signed [facility] Work Phone: Consult note Author Dom Gonzales [facility] Note Date/Time May 17, 2025 2:55 pm [facility] Medical Records Department [address] [place] [address] Consultation - Orthopedics 05/17/25 1422 MR#: [id number] Acct: [id number] Name: LUKE DOLAN Rep #:[id number] : 1955 69 From: Dom Gonzales MD PCP: TYRONE DEJESUS Status:REG S DC Location: [facility] A-1 HPI Consult Data Date of Consult: 05/17/25 [...] sips of coffee. Did not eat lunch. [facility] Medical History Diabetes High cholesterol Back pain Gastric reflux Smoker Cardiology follow-up encounter Presence of stent in coronary artery (~08/2008) Essential hypertension Ventral incisional hernia without obstruction or gangrene Hyperlipidemia Acute [place], anterior wall, subsequent episode of care Old myocardial infarction Syncope and collapse Dyspnea Chest pain Long-term use of high-risk medication Atherosclerotic heart disease of [place] coronary artery without angina pectoris Home Medications [...] % (Auto) 51.0, Lymph % (Auto) 37.9, [place]% (Auto) 9.4, Eos % (Auto) 1.0, Baso [...] effusion. No radiographic foreign body. Reading Location: [id number] Lumbar Spine X-Ray 05/17/25 11:10 IMPRESSION: No acute process identified. Degenerative disc disease Reading [facility] I reviewed the knee x-rays I agree [...] to Dr. Oneil as well as the housekeeping worker at / around 1:45 PM and stressed [...] (2) Septic arthritis of knee, left: 05/17/25 1433 <Electronically signed by Dom Gonzales MD> Cosigner Signature (if applicable): CC: TYRONE DEJESUS~ Signed ADDENDUM by Dr. Dom Gonzales MD on 05/17/25 at 1455 Addendum I ordered IV vancomycin in addition to the ceftriaxone for MRSA coverage given age and comorbidities. 05/17/251454<Electronically signed by Dom Gonzales MD> Cosigner Signature (if applicable): cc: TYRONE DEJESUS ~* Signed [facility] Work Phone: Consult note Author Phani Oneil [facility] Note Date/Time May 17, 2025 3:[address] [facility] Medical Records Department [address] [place] [address] Pre-Anesthesia Evaluation 05/17/25 1447 MR#: [id number] Acct: [id number] Name: LUKE DOLAN Rep #:[id number] : 1955 69 From: Phani Oneil MD PCP: TYRONE DEJESUS Status:REG S DC Y Race: C Location: [place] [address] Phani Oneil MD on [...] left knee. Anesthesia History Anesthesia History - police aide: Anesthesia History - police aide Hx Hospitalization No 08/17/23 08:15 Any Problems [...] sips of water?: Yes PONV PONV - police aide: PONV - police aide Female HX of Motion Sickness HX of N/V After Surgery Non-Smoker Duration of Surgery greater than 60 minutes Number of Risk Factors PONV Score Height & Weight Height & Weight: Anesthesia: Height & Weight Height 5 ft 6 in 05/17/25 13:47 Weight: 78.4 kg 05/17/25 13:47 Body Mass Index (BMI) 27.8 05/17/25 13:47 Respiratory Assessment Respiratory Assessment - police aide: Respiratory Tract Infection Hx - police aide Hx Respiratory Tract Infection No 05/17/25 13:47 STOP Sleep Apnea STOP Sleep Apnea - police aide: STOP Sleep Apnea - police aide Hx Hypertension Yes 05/17/25 13:47 Hx Sleep [...] Tobacco Use History Tobacco Use History - police aide: Tobacco Use History - police aide Tobacco Use Smoking Status Current every day smoker 05/17/25 09:45 Hx Tobacco Use Yes 08/17/23 08:15 Years Smoking Packs Smoked per Day Smoking Cessation Date was within the last 15 years Hx Smoking Cessation Date Hx Smoking Cessation Counseling Hematologic Medial History Hematologic Hx - police aide: 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 Specify any problems Hx of Preganancy in last 3 Months Nurse Filling Out Transfusion & Questions: Date: Time: Patient unable to answer at this time (ie. confused, unrespo /Reproduction History /Reproductive History - police aide: /Reproductive Hx- police aide Hx Now No 05/17/25 13:47 Gestational Age (in weeks): EDC: Hx Hx Para Hx Section SAB No 05/17/25 13:47 PFSH Medical History Diabetes High cholesterol Back pain Gastric reflux Smoker Cardiology follow-up encounter Presence of stent in coronary artery (~08/2008) Essential hypertension Ventral incisional hernia without obstruction or gangrene Hyperlipidemia Acute [place], anterior wall, subsequent episode of care Old myocardial infarction Syncope and collapse Dyspnea Chest pain Long-term use of high-risk medication Atherosclerotic heart disease of [place] coronary artery without angina pectoris Home Medications [...] MD Cosigner Signature: Date CC: ~ Signed [facility] Work Phone: Discharge summary Author Chary Fontaine [facility] August 28, 2023 2:07pm Note Date/Time August 28, 2023 2: 00pm [facility] Medical Records Department [address] [place] [address] Instructions for Home/Discharge Instructions 08/28/23 1359 MR#: [id number] Acct: [id number] Name: LUKE DOLAN Tommy Rep #:[id number] : 1955 68 From: Chary Fontaine MD PCP: Dr. Camden Briones, DO Status:REG [facility] Discharge Instructions Diet Discharge Diet: No restrictions [...] appointment 2 weeks; after 5 PM and call [phone] with any concerns. Test Results: Test results [...] CC: Dr. Camden Briones DO ~ Signed [facility] Work Phone: Discharge summary Author Aaron Razo [facility] Note Date/Time May 19, 2025 3:53 pm [facility] Medical Records Department [address] [place] [address] Discharge Summary 05/19/25 1548 MR#: [id number] Acct: [id number] Name: LUKE DOLAN Rep #:[id number] : 1955 69 From: Aaron Razo DO PCP: TYRONE DEJESUS Status:ADM I N Location: [facility] [id number] Providers Date of Admission: 05/17/25 Primary Care Physician: SOL ROSS Consultations 05/17/25 16:40 Consult: Infectious Disease Routine Consulting Provider: Camden Flores Reason for Consult: left knee septic arthritis EMERGENT Consult: No Notified: Yes Date Notified: 05/19/25 Time Notified: 06:30 Method of Notification: Text 05/18/25 13:38 Consult: Orthopedics Routine Consulting Provider: Dom Gonzales Reason for Consult: left knee effusion EMERGENT Consult: No Notified: Yes Date Notified: 05/18/25 Time Notified: 13:38 Method of Notification: ED Physician Initiated Reason For Visit: LEFT KNEE SEPTIC ARTHRITIS Diagnosis Discharge Diagnosis (1) Septic arthritis of knee, left: Status: Acute Code(s): M00.9 - Pyogenic arthritis, unspecified Plan: Orthopedics following. Patient underwent a left knee irrigation debridement, removal of the loose body. That was performed . Cultures pending. Fluid studies: no crystals. WBCs 15.3. Abx w CTX and vancomycin ID consultation for long-term abx. And is recommending 3 weeks of vancomycin and ceftriaxone. Cultures are still pending and antibiotics may be further adjusted based on the culture results to become available. Patient did have PICC line placed and will be discharged home to continue with home care. Patient will miss a dose of IV antibiotics tonight which is okayed by him as he has been wanting to go home. Home care will start tomorrow, on the . Plan Chronic conditions * Coronary artery disease with history of stents. On aspirin. Clopidogrel held for now. * Hypertension: Continue with lisinopril * Diabetes mellitus type 2: On sliding scale insulin VTE prophylaxis: LMWH Medications at Discharge Home Medications fenofibrate 160 mg tablet 160 mg PO DAILY #30 tabs 12/17/18 rosuvastatin 40 mg tablet (Crestor) 40 mg PO DAILY 06/05/19 lisinopril 40 mg tablet 40 mg PO DAILY #90 tabs 12/13/21 aspirin 81 mg tablet,delayed release (Adult Aspirin Regimen) 81 mg PO DAILY 08/17/23 clopidogrel 75 mg tablet 75 mg PO DAILY #90 tabs 05/22/24 ezetimibe 10 mg tablet 10 mg PO DAILY 05/17/25 hydrocodone-acetaminophen 5-325mg 5mg-325mg 1 tab PO Q6H PRN PRN Pain 3 days #10TABLETS 05/17/25 metformin 500 mg tablet,extended release 24 hr 500 mg PO BID 05/17/25 oxycodone-acetaminophen 5 mg-325 mg tablet 1 tab PO Q6H 05/17/25 pantoprazole 40 mg tablet,delayed release 40 mg PO DAILY 05/17/25 ceftriaxone 2 gram intravenous solution 2 g IV DAILY 21 days 05/19/25 vancomycin 1.5 gram intravenous solution 1.5 g IV Q12H 21 days 05/19/25 Hospital Course Operations - (Left knee irrigation and debridement, extensive, removal of loose body.) Procedures None Summary of Care Provided Minutes Spent on Discharge: 32 Hospital Course: Patient presented with warm swollen knee. Concern for septic arthritis. Patient was taken to the OR on the by Dr. Gonzales where he underwent incision and debridement of the knee that was extensive and as well as a removalof loose body. Patient tolerated the procedure well. Cultures were pending. Patient was on broad-spectrum antibiotics and has done well. Patient was seen by infectious disease and recommended 3 weeks of IV vancomycin and ceftriaxone. Further adjustments to antibiotics would be assessed by infectious disease as more culture data became available. Patient be weightbearing as tolerated and range of motion as tolerated. Patient advised to keep the incision clean and dry but avoid getting wet for the time being. Patient to follow-up with orthopedics as outpatient. Weight / BMI Weight Weight: 78.4 kg Body Mass Index (BMI) 27.8 ABG / Lab / Microbiology Data 05/19/25 03:09 05/19/25 03:09 Laboratory: Laboratory Results - last 24 hr 05/17/25 11:32: Fl Crystal Path Review Reviewed 05/18/25 16:07: POC Glucose 191 H 05/18/25 20:44: POC Glucose 178 H 05/19/25 03:09: WBC 15.0 H, RBC 4.70, Hgb 13.4, Hct 40.5, MCV 86.2, MCH 28.5, MCHC 33.1, RDW Std Deviation 45.1 H, RDW Coeff of Kranthi 14.3, Plt Count 305, MPV 9.5, Immature Gran % (Auto) 0.300, Neut % (Auto) 57.7, Lymph % (Auto) 33.1, [place]% (Auto) 8.4, Eos % (Auto) 0.2, Baso % (Auto) 0.3, Absolute Neuts (auto) 8.7 H, Absolute Lymphs (auto) 4.97 H, Nucleated RBC % 0, Sodium 138, Potassium 4.1, Chloride 105, Carbon Dioxide 21.0, Anion Gap 12, BUN 15, Creatinine 0.77, Estim Creat Clear Calc 87.05, Est GFR (MDRD) Non-Af 98, BUN/Creatinine Ratio 19.7, Glucose 130 H, Calcium 9.1, Vancomycin Trough 12.9 05/19/25 04:47: POC Glucose 136 H 05/19/25 11:15: POC Glucose 138 H Microbiology: Microbiology 05/17/25 11:32 Fluid - Synovial (joint) Gram Stain - Final 05/17/25 11:32 Fluid - Synovial (joint) Body Fluid Culture - Preliminary No growth-Final to follow 05/17/25 11:32 Fluid - Synovial (joint) Anaerobic Culture - Preliminary No growth in 48 hours. D/C Instructions Discharge Diet: No restrictions DC O2, CPAP, BIPAP Needs Home O2 Discharge instructions: No Meaningful Use Info Meaningful Use Meaningful Use Diagnoses (Choose all that apply): None applicable Ischemic Stroke Statin Dosing Therapy Reference: STATIN DOSE THERAPY REFERENCE: * Patients > 75 years receive moderate or high dose statin therapy. * Patients 75 years or YOUNGER should receive HIGH intensity statin dose unless contraindicated. You will be required to document reason for non-treatment if statin daily dose does not meet guidelines. HIGH DOSE STATIN THERAPY DAILY Atorvastatin > than or = to 40 mg Rosuvastatin > than or = to 20 mg Amlodipine + Atorvastatin > than or = to 2.5/40 mg Ezetimibe + Simvastatin 10/80 mg Simvastatin 80mg Discharge Plan Admission Admit Date/Time: 05/17/25 16:08 Primary Reason for Your Visit: Left knee septic arthritis Attending Provider: Aaron Razo Primary Care Provider: TYRONE DEJESUS Consulting Providers: Erickson Robbins; Dom Gonzales; Camden Flores Instructions Patient Instructions: ED Degenerative Disk Disease Additional Instructions / Restrictions: Weightbearing to left knee as you can tolerate. Continue with IV antibiotics per infectious diseases recommendations. If you notice increased swelling, increased redness or warmth of your knee, contact physician or return to the emergency room. Avoid getting the incision wet. Discharge Orders/Prescriptions Prescriptions: New hydrocodone-acetaminophen 5-325 mg tablet 1 tab PO Q6H PRN PRN (Reason: Pain) 3 Days Qty: 10 0RF ceftriaxone 2 gram recon soln 2 g IV DAILY 21 Days Rx Instructions: stop date 06/09/25. Dx: septic arthritis. Weekly bmp, cbc, esr, and vanc trough. Fax to [phone]. Routine picc care per protocol. vancomycin 1.5 gram recon soln 1.5 g IV Q12H 21 Days Rx Instructions: stop date 06/09/25. Dx: septic arthritis. Weekly bmp, cbc, esr, and vanc trough. Fax to [phone]. Routine picc care per protocol. Continued fenofibrate 160 mg tablet 160 mg PO DAILY Qty: 30 11RF rosuvastatin [Crestor] 40 mg tablet 40 mg PO DAILY clopidogrel 75 mg tablet 75 mg PO DAILY Qty: 90 3RF aspirin [Adult Aspirin Regimen] 81 mg tablet,delayed release (DR/EC) 81 mg PO DAILY oxycodone-acetaminophen 5-325 mg tablet 1 tab PO Q6H metformin 500 mg tablet extended release 24 hr 500 mg PO BID ezetimibe 10 mg tablet 10 mg PO DAILY pantoprazole 40 mg tablet,delayed release (DR/EC) 40 mg PO DAILY lisinopril 40 mg tablet 40 mg PO DAILY Qty: 90 3RF Referrals / Follow Up: Camden Briones DO [Non-Staff] - Within 2 Weeks Dom Gonzales MD [Med Staff - Active Staff] - Within 2 Weeks Disposition Disposition (needs filled in before D/C Order can be placed): Home Health Service Charges/Coding Visit Charges Inpatient E&M: 53616 Disch Hosp >30min 05/19/25 1553 <Electronically signed by Aaron Razo DO> Cosigner Signature (if applicable): CC: Dr. Aaron Razo DO; TYRONE COMMUNICATIONS CLERK-C OLEG~ Signed [facility] Work Phone: Evaluation + Plan note Future Appointments Appointment Date:02/02/2022 11:00:00 AM Scheduled Provider:CAMDEN BRIONES DO Location:[facility] Appointment Type:PC OV Controlled Medication Future Scheduled Tests Radiology* XR Swallowing Function 02/03/21 [facility] evaluation + Plan note Future Appointments Appointment Date:02/01/2023 10:30:00 AM Scheduled Provider:CAMDEN BRIONES DO Location:[facility] Appointment Type:PC OV Controlled Medication [facility] evaluation + Plan note Future Appointments Appointment Date:05/01/2024 11:00:00 AM Scheduled Provider:CAMDEN BRIONES DO Location:[facility] Appointment Type:PC OV Controlled Medication Future Scheduled Tests Laboratory* Prostate Specific Antigen 01/31/24 * Complete Blood Count 01/31/24 * Lipid Profile 01/31/24 * Albumin/Creatinine Ratio, Random Urine 01/31/24 * Complete Metabolic Panel 01/31/24 [facility] evaluation + Plan note Future Appointments Appointment Date:11/06/2024 11:00:00 AM Scheduled Provider:CAMDEN BRIONES DO Location:[facility] Appointment Type:PC OV Controlled Medication Future Scheduled Tests Laboratory* Complete Blood Count 07/30/24 * Lipid Profile 07/30/24 * Albumin/Creatinine Ratio, Random Urine 05/01/24 [facility] evaluation note* Diagnosis Onset Date Resolution Status Essential hypertension chron ic Hyperlipidemia chronic Nicotine dependence chronic Presence of stent in coronary artery 2007 chronic Ventral hernia acute [facility] Work Phone: evaluation note* Diagnosis Onset Date Resolution Status Ventral hernia acute Ventral hernia [facility] Work Phone: evaluation note* Diagnosis Dysphagia, unspecified type- Primary Dysphagia, unspecified type [facility] Diagnosis Dysphagia, unspecified type- Primary [facility] in [facility] noteNo assessment information [facility]WPremier [facility] Work Phone: evaluation note* Diagnosis Onset Date Resolution Status Admit Date Chondrocalcinosis of left knee acute May 17, 2025 1:38pm Septic arthritis of knee, left acute May 17, 2025 1:38pm [facility] Work Phone: Hospital course Narrative No data available for this section [facility] Hospital Discharge instructions No data available for this section [facility] Progress note No data available for this section [facility] Progress note Author Dom Gonzales [facility] Note Date/Time May 19, 2025 4:03 pm [facility] Medical Records Department [address] [place] [address] Progress Note - Orthopedic 05/19/25 1602 MR#: [id number] Acct: [id number] Name: LUKE DOLAN Rep #:[id number] : 1955 69 From: Dom Gonzales MD PCP: TYRONE DEJESUS COMMUNICATIONS CLERK-C Status:ADM I N Location: [place] [id number] Subjective Subjective POD 2 L knee I and D. doing well. no concerns. feels fine, much better. Objective Data Objective Data Vital Signs: Vital Signs Temp Pulse Resp BP Pulse Ox O2 Del Method 97.7 F L 90 16 150/64 H 99 Room Air 05/19/25 14:36 05/19/25 14:36 05/19/25 14:36 05/19/25 14:36 05/19/25 14:36 05/19/25 14:36 Oxygen Delivery Method Room Air Weight: 172 lb 13.478 oz Body Mass Index (BMI) 27.8 Intake & Output: Intake and Output for Last 24 Hours 05/17/25 05/18/25 05/19/25 23:59 23:59 23:59 Intake Total 825 / 825 1690 / 1690 1280 / 1280 Output Total 303 / 303 150 / 150 Balance 522 / 522 1540 / 1540 1280 / 1280 Lab / Micro Data 05/19/25 03:09 05/19/25 03:09 Labs: Laboratory Results - last 24 hr 05/17/25 11:32: Fl Crystal Path Review Reviewed 05/18/25 16:07: POC Glucose 191 H 05/18/25 20:44: POC Glucose 178 H 05/19/25 03:09: WBC 15.0 H, RBC 4.70, Hgb 13.4, Hct 40.5, MCV 86.2, MCH 28.5, MCHC 33.1, RDW Std Deviation 45.1 H, RDW Coeff of Kranthi 14.3, Plt Count 305, MPV 9.5, Immature Gran % (Auto) 0.300, Neut % (Auto) 57.7, Lymph % (Auto) 33.1, [place]% (Auto) 8.4, Eos % (Auto) 0.2, Baso % (Auto) 0.3, Absolute Neuts (auto) 8.7 H, Absolute Lymphs (auto) 4.97 H, Nucleated RBC % 0, Sodium 138, Potassium 4.1, Chloride 105, Carbon Dioxide 21.0, Anion Gap 12, BUN 15, Creatinine 0.77, Estim Creat Clear Calc 87.05, Est GFR (MDRD) Non-Af 98, BUN/Creatinine Ratio 19.7, Glucose 130 H, Calcium 9.1, Vancomycin Trough 12.9 05/19/25 04:47: POC Glucose 136 H 05/19/25 11:15: POC Glucose 138 H Micro: Microbiology 05/17/25 11:32 Fluid - Synovial (joint) Gram Stain - Final 05/17/25 11:32 Fluid - Synovial (joint) Body Fluid Culture - Preliminary No growth-Final to follow 05/17/25 11:32 Fluid - Synovial (joint) Anaerobic Culture - Preliminary No growth in 48 hours. Physical Exam Const alert and oriented x3 Extremity normal capillary refill Extremity Narrative: ROM 0-120, steris in place, trace effusion, nvi, no redness or warmth. Assessment & Plan Assessment/Plan (1) Chondrocalcinosis of left knee: PLAN: 69 yr M POD 2 L SA of the knee. OK to dc, FU 2 weeks in office. ABX arranged per ID. Keep incision dry. ROM and WBAT (2) Septic arthritis of knee, left: 05/19/25 1603 <Electronically signed by Dom Gonzales MD> Cosigner Signature (if applicable): CC: ~ Signed [facility] Work Phone: Reason for referral (narrative)No reason for referral information [facility]Mem[facility] Work Phone: Summary Purpose Family History [...] No May 12, 2016 2:14pm Power of Sole Tier No May 12 6 2:14pm Advance Directive Response Recorded Date/ Time Advance Directives No May 12 16 2:14pm Living Will No August 17, 2023 8:15am Power of Sole Tier No July 8:15am Advance Directive Response Recorded Date/ Time Advance Directives No May 12 2:14pm Advance Directive Response Recorded Date/ Time Do you have a Healthcare Power of Sole Tier? No May 17, 2025 9:45am Advance Directives No May 12 16 2:14pm Advance Directive Response Recorded Date/ Time Do you have a Healthcare Power of Sole Tier? No May 17, 2025 4:54pm Advance Directives No May 12 16 2:14pm [...] Septic arthritis of knee, left April 1:38pm Chief Complaint Admit Date LUNG March 11, 2025 8:5 1am JOINT INFECTION May 17, 2025 2:22 pm LEFT KNEE SEPTIC ARTHRITIS May 17 4:08pm LEFT KNEE SEPTIC ARTHRITIS May 18 7:25am LEFT KNEE SEPTIC ARTHRITIS May 19 7:37am LEFT KNEE SEPTIC ARTHRITIS May 19 4:02pm Reason for Visit Admit Date Chondrocalcinosis of left knee April 4:08pm Septic arthritis of knee, left April 4:08pm Chief Complaint Admit Date LUNG March 11, 2025 8:5 1am JOINT INFECTION May 17, 2025 2:22 pm LEFT KNEE SEPTIC ARTHRITIS May 17 4:08pm LEFT KNEE SEPTIC ARTHRITIS May 18 7:25am LEFT KNEE SEPTIC ARTHRITIS May 19 7:37am LEFT KNEE SEPTIC ARTHRITIS May 19 4:02pm LEFT KNEE June 02, 2025 1:55p m Reason for Visit Admit Date Chondrocalcinosis of left knee April 4:08pm Septic arthritis of knee, left April 4:08pm Chondrocalcinosis of left knee June 02, 2025 1:55pm Septic arthritis of knee, left June 02, 2025 1:55pm Chief Complaint Admit Date LUNG March 11, 2025 8:5 1am JOINT INFECTION May 17, 2025 2:22 pm LEFT KNEE SEPTIC ARTHRITIS May 17 4:08pm LEFT KNEE SEPTIC ARTHRITIS May 18 7:25am LEFT KNEE SEPTIC ARTHRITIS May 19 7:37am LEFT KNEE SEPTIC ARTHRITIS May 19 4:02pm LEFT KNEE June 02, 2025 1:55p m Lung Mass June 03, 2025 10:49 am Reason for Visit Admit Date Chondrocalcinosis of left knee April 4:08pm Septic arthritis of knee, left April 4:08pm Chondrocalcinosis of left knee June 02, 2025 1:55pm Septic arthritis of knee, left June 02, 2025 1:55pm Multiple lung nodules June 03, 2025 10: 49am Additional Source Comments (unrecognized sect ion and content) No Status Records FoundNo Status Records FoundNo Status Records FoundNo Status Records FoundNo Status Records Found INFORMATION SOURCE (unrecogn ized section and content) DATE CREATED AUTHOR 09/04/2019 [facility] DATE CREATED AUTHOR AUTHOR'S ORGANIZ ATION 05/15/2024 [facility] ([place]) DATE CREATED AUTHOR AUTHOR'S ORGANIZ ATION 03/08/2025 [facility] DATE CREATED AUTHOR AUTHOR'S ORGANIZ ATION 04/29/2025 [facility] DATE CREATED AUTHOR AUTHOR'S ORGANIZ ATION 05/31/2025 [facility] Care Team (unrecognized sect ion and content) Care Team Personnel Name: CAMDEN BRIONES DO Position: P4 Physician - Primary Care Member Role: Primary Care Physician Address: Address: [address] [place] [id number] [place] [address] Care Team Related Persons Name: LON DOLAN Care Teams (unrecognized sec tion and content) Team Status: Active Member Role Status Dates SOL ROSS Primary Care Provider Active Team Status: Inactive [...] Provider, Referri ng Provider Active Mariaelena Tuttle COMMUNICATIONS CLERK, COMMUNICATIONS CLERK-C Attending Provider Active Team Status: Inactive Member [...] Provi leo, Referring Provider, Other Provider Active Telecom Billing Analyst Relationship Specialty Start Date End Date Camden Briones DO [address] [place] [address] PCP - General Family Medicine 11/12/24 Telecom Billing Analyst Relationship Specialty Start Date End Date Camden Briones DO [address] [place] [address] PCP - General Family Medicine 11/12/24 Telecom Billing Analyst Relationship Specialty Start Date End Date Camden Briones DO [address] [place] [address] PCP - General Family Medicine 11/12/24 Team [...] December 11, 2024 End: December 11, 2024 Telecom Billing Analyst Relationship Specialty Start Date End Date Camden BrionesDO [address] [place] [address] PCP - General Family Medicine 11/12/24 Telecom Billing Analyst Relationship Specialty Start Date End Date Naselmo, Camden PortilloDO [address] [place] [address] PCP - General Family Medicine 11/12/24 Team Status: Inactive Member Role Status Dates Dr. Mynor De Leon MD Emergency Provider Active Sta rt: May 17, 2025 End: May 19, 2025 SOL ROSS Primary Care Provider Active Start: May 17, 2025 End: May 19, 2025 Dr. Erickson Robbins DO Admit Provider Active Start: May 17, 2025 End: May 19, 2025 Dr. Erickson Robbins DO Referring Provider Active Start: May 17, 2025 End: May 19, 2025 Dr. Erickson Robbins DO Other Provider Active Start: May 17, 2025 End: May 19, 2025 Dr. Aaron Razo DO Attending Provider Active Start: May 17, 2025 End: May 19, 2025 Dom Gonzales MD Other Provider Active Start: May 17, 2025 End: May 19, 2025 Dr. Camden Flores MD Other Provider Active Start: May 17, 2025 End: May 19, 2025 Team Status: Active Member Role Status Dates Dr. Mynor De Leon MD Emergency Provider Active Sta rt: May 18, 2025 SOL ROSS Primary Care Provider Active Start: May 18, 2025 Dr. Erickson Robbins DO Admit Provider Active Start: May 18, 2025 Dr. Erickson Robbins DO Referring Provider Active Start: May 18, 2025 Dr. Erickson Robbins , Other Provider Active Start: May 18, 2025 Dom Gonzales MD Other Provider Active Start: May 18, 2025 Dr. Aaron Razo , Attending Provider Active Start: May 18, 2025 Dr. Aaron Razo DO Other Provider Active Star t: May 18, 2025 Team Status: Active Member Role Status Dates Dr. Mynor De Leon MD Emergency Provider Active Sta rt: May 19, 2025 TYRONE DEJESUS COMMUNICATIONS CLERK-C Primary Care Provider Active Start: May 19, 2025 Dr. Erickson Robbins , Admit Provider Active Start: May 19, 2025 Dr. Erickson Robbins DO Referring Provider Active Start: May 19, 2025 Dr. Erickson Robbins DO Other Provider Active Start: May 19, 2025 Dr. Aaron Razo DO Attending Provider Active Start: May 19, 2025 Dr. Aaron Razo , Other Provider Active Star t: May 19, 2025 Dom Gonzales MD Other Provider Active Start: May 19, 2025 Dr. Camden Flores MD Other Provider Active Start: May 19, 2025 Team Status: Active Member Role Status Dates Dr. Mynor De Leon MD Emergency Provider Active Sta rt: May 19, 2025 TYRONE DEJESUS COMMUNICATIONS CLERK-C Primary Care Provider Active Start: May 19, 2025 Dr. Erickson Robbins DO Admit Provider Active Start: May 19, 2025 Dr. Erickson Robbins DO Referring Provider Active Start: May 19, 2025 Dr. Erickson Robbins DO Other Provider Active Start: May 19, 2025 Dr. Aaron Razo DO Other Provider Active Star t: May 19, 2025 Dom Gonzales MD Attending Provider Active St art: May 19, 2025 Dom Gonzales MD Other Provider Active Start: May 19, 2025 Dr. Camden Flores MD Other Provider Active Start: May 19, 2025 Team Status: Active Member Role/Relationship Status Dates TYRONE DEJESUS COMMUNICATIONS CLERK-C Primary Care Provider Active Team Status: Inactive Member Role/Relationship Status Dates Dr. Camden Briones DO Primary Care Provider Active Start: March 11, 2025 End: March 11, 2025 Dr. Camden Briones DO Attending Provider Active Start: March 11, 2025 End: March 11, 2025 Dr. Camden Briones DO Referring Provider Active Start: March 11, 2025 End: March 11, 2025 Team Status: Active Member Role/Relationship Status Dates Dr. Mynor De Leon MD Emergency Provider Active Sta rt: May 17, 2025 TYRONE DEJESUS COMMUNICATIONS CLERK-C Primary Care Provider Active Start: May 17, 2025 Dom Gonzales MD Attending Provider Active St art: May 17, 2025 Dom Gonzales MD Other Provider Active Start: May 17, 2025 Dr. Aaron Razo DO Referring Provider Active Start: May 17, 2025 Team Status: Inactive Member Role/Relationship Status Dates Dr. Mynor De Leon MD Emergency Provider Active Sta rt: May 17, 2025 End: May 19, 2025 TYRONE DEJESUS , COMMUNICATIONS CLERK-C Primary Care Provider Active Start: May 17, 2025 End: May 19, 2025 Dr. Erickson Robbins DO Admit Provider Active Start: May 17, 2025 End: May 19, 2025 Dr. Erickson Robbins DO Referring Provider Active Start: May 17, 2025 End: May 19, 2025 Dr. Erickson Robbins DO Other Provider Active Start: May 17, 2025 End: May 19, 2025 Dr. Aaron Razo DO Attending Provider Active Start: May 17, 2025 End: May 19, 2025 Dom Gonzales MD Other Provider Active Start: May 17, 2025 End: May 19, 2025 Dr. Camden Flores MD Other Provider Active Start: May 17, 2025 End: May 19, 2025 Team Status: Active Member Role/Relationship Status Dates Dr. Mynor De Leon MD Emergency Provider Active Sta rt: May 18, 2025 TYRONE DEJESUS , COMMUNICATIONS CLERK-C Primary Care Provider Active Start: May 18, 2025 Dr. Erickson Robbins DO Admit Provider Active Start: May 18, 2025 Dr. Erickson Robbins DO Other Provider Active Start: May 18, 2025 Dom Gonzales MD Other Provider Active Start: May 18, 2025 Dr. Aaron Razo DO Attending Provider Active Start: May 18, 2025 Dr. Aaron Razo , Other Provider Active Star t: May 18, 2025 Team Status: Active Member Role/Relationship Status Dates Dr. Mynor De Leon MD Emergency Provider Active Sta rt: May 19, 2025 TYRONE DEJESUS , COMMUNICATIONS CLERK-C Primary Care Provider Active Start: May 19, 2025 Dr. Erickson Robbins , DO Admit Provider Active Start: May 19, 2025 Dr. Erickson Robbins , Other Provider Active Start: May 19, 2025 Dr. Aaron Razo DO Attending Provider Active Start: May 19, 2025 Dr. Aaron Razo DO Other Provider Active Star t: May 19, 2025 Dom Gonzales MD Other Provider Active Start: May 19, 2025 Dr. Camden Flores MD Other Provider Active Start: May 19, 2025 Team Status: Active Member Role/Relationship Status Dates Dr. Mynor De Leon MD Emergency Provider Active Sta rt: May 19, 2025 TYRONE DEJESUS COMMUNICATIONS CLERK-C Primary Care Provider Active Start: May 19, 2025 Dr. Erickson Robbins , Admit Provider Active Start: May 19, 2025 Dr. Erickson Robbins DO Referring Provider Active Start: May 19, 2025 Dr. Erickson Robbins DO Other Provider Active Start: May 19, 2025 Dr. Aaron Razo DO Other Provider Active Star t: May 19, 2025 Dom Gonzales MD Attending Provider Active St art: May 19, 2025 Dom Gonzales MD Other Provider Active Start: May 19, 2025 Dr. Camden Flores MD Other Provider Active Start: May 19, 2025 Team Status: Active Member Role/Relationship Status Dates TYRONE DEJESUS COMMUNICATIONS CLERK-C Primary Care Provider Active Start: May 27, 2025 Dr. Camden Flores MD Attending Provider Active Start: May 27, 2025 Team Status: Inactive Member Role/Relationship Status Dates TYRONE GARCIAETLER , COMMUNICATIONS CLERK-C Primary Care Provider Active Start: June 02, 2025 End: June 02, 2025 TYRONE DEJESUS COMMUNICATIONS CLERK-C Referring Provider Active Start: June 02, 2025 End: June 02, 2025 Dom Gonzales MD Attending Provider Active St art: June 02, 2025 End: June 02, 2025 Team Status: Inactive Member Role/Relationship Status Dates TYRONE DEJESUS , COMMUNICATIONS CLERK-C Primary Care Provider Active Start: May 27, 2025 End: May 27, 2025 Dr. Camden Flores MD Attending Provider Active Start: May 27, 2025 End: May 27, 2025 Team Status: Active Member Role/Relationship Status Dates TYRONE DEJESUS , COMMUNICATIONS CLERK-C Primary Care Provider Active Start: June 03, 2025 Dr. Camden Flores MD Attending Provider Active Start: June 03, 2025 Team Status: Inactive Member Role/Relationship Status Dates TYRONE DEJESUS , COMMUNICATIONS CLERK-C Primary Care Provider Active Start: June 03, 2025 End: June 03, 2025 TYRONE DEJESUS COMMUNICATIONS CLERK-C Referring Provider Active Start: June 03, 2025 End: June 03, 2025 Martha Go NP, COMMUNICATIONS CLERK-C Attending Provider Active Start: June 03, 2025 End: June 03, 2025 Goals (unrecognized section and content) Goals may be documented in a n alternate section Source Comments (unrecognize d section and content) In the event this informatio n is protected by the Federal Confidentiality of Alcohol and Drug Abuse Patient Records regulations: The Federal rules restrict any use of the information to criminally investigate or prosecute any alcohol or drug abuse patient.[facility] the event this information is protected by the Federal Confidentiality of Alcohol and Drug Abuse Patient Records regulations: The Federal rules restrict any use of the information to criminally investigate or prosecute any alcohol or drug abuse patient.[facility] the event this information is protected by the Federal Confidentiality of Alcohol and Drug Abuse Patient Records regulations: The Federal rules restrict any use of the information to criminally investigate or prosecute any alcohol or drug abuse patient.[facility] the event this information is protected by the Federal Confidentiality of Alcohol and Drug Abuse Patient Records regulations: The Federal rules restrict any use of the information to criminally investigate or prosecute any alcohol or drug abuse patient.[facility] the event this information is protected by the Federal Confidentiality of Alcohol and Drug Abuse Patient Records regulations: The Federal rules restrict any use of the information to criminally investigate or prosecute any alcohol or drug abuse patient.[facility] the event this information is protected by the Federal Confidentiality of Alcohol and Drug Abuse Patient Records regulations: The Federal rules restrict any use of the information to criminally investigate or prosecute any alcohol or drug abuse patient.[facility] the event this information is protected by the Federal Confidentiality of Alcohol and Drug Abuse Patient Records regulations: The Federal rules restrict any use of the information to criminally investigate or prosecute any alcohol or drug abuse patient.[facility] the event this information is protected by the Federal Confidentiality of Alcohol and Drug Abuse Patient Records regulations: The Federal rules restrict any use of the information to criminally investigate or prosecute any alcohol or drug abuse patient.[facility] Reason for Visit (unrecogniz ed [...] BE BASED ON THE PRIMARY CLINICAL RECORDS. [employer] [facility]. provides no warranty or guarantee of the accuracy or completeness of information in this document.
== END | disposition home or self-care (01) ==
LOC: LABSPEC 10:10
PROVIDERS: PCP Nurse Practitioner Family; Referring Provider Internal Medicine Infectious Disease; Visit Provider Internal Medicine Infectious Disease
DX: M00.062 Staphylococcal arthritis, left knee (principal)
CPT/HCPCS: 80048; 80202

== ENCOUNTER → 2025-06-11 | Outpatient (CLI) | payer MEDICARE, MEDICAID, SELFPAY | END | disposition home or self-care (01) | LOC: PSN 10:49 | PROVIDERS: PCP Nurse Practitioner Family; Referring Provider Nurse Practitioner Acute Care; Visit Provider Nurse Practitioner Acute Care | DX: F17.210 Nicotine dependence, cigarettes, uncomplicated (principal) | CPT/HCPCS: 94060; 94726; 94729 ==

== ENCOUNTER → 2025-06-18 | Outpatient (CLI) | payer MEDICARE, MEDICAID, SELFPAY ==
--- NOTE | 2025-06-18 17:30 | CT_ITS ---
PROCEDURE: CHEST WITHOUT CONTRAST 06/18/2025 REASON FOR EXAM: MULTIPLE LUNG NODULES IN SMOKER TECHNIQUE: Chest CT without contrast. Coronal and Sagittal reconstruction series were provided. One or more dose reduction techniques were used (e.g., Automated exposure control, adjustment of the mA and/or kV according to patient size, use of iterative reconstruction technique RADIATION DOSE SUMMARY: CTDlvol: 10 mGy DLP: 402 mGycm COMPARISON: March 11, 2025 FINDINGS: Hardware: None Lymph nodes: None appear enlarged. Heart and Vasculature: Normal size. No pericardial effusion. Moderate atherosclerotic plaque without aneurysm. Coronary Artery Calcifications: Present Esophagus is mildly distended and contains some fluid up to the level of the lilian. Lungs and Airways: Upper lobe predominant centrilobular and paraseptal emphysema is seen. An azygous fissure is present, a normal variant. Fine reticular change and ground-glass is seen adjacent to the minor fissure. The irregular nodule in the right lower lobe is qualitatively similar to prior. It is degraded by respiratory motion artifact making accurate measurement limited. Pleura: No pleural effusion or pneumothorax. Upper Abdomen: Cholecystectomy Bones: No acute abnormality CT/Chest without Contrast IMPRESSION: 1. No consolidation, mass or new nodule. Previously identified nodule right l ower lobe qualitatively similar to prior exam. There is a degree of motion artifact limiting accurate measurement. Continued surveillance suggested. Correlate with prior PET-CT results of March 11, 2025. 2. No lymphadenopathy. 3. Coronary artery disease. Reading Location: [id number]
== END | disposition home or self-care (01) ==
PROVIDERS: PCP Nurse Practitioner Family; Referring Provider Nurse Practitioner Acute Care; Visit Provider Nurse Practitioner Acute Care
DX: R91.8 Other nonspecific abnormal finding of lung field (principal); F17.200 Nicotine dependence, unspecified, uncomplicated
CPT/HCPCS: 71250

== ENCOUNTER → 2025-07-01 | Outpatient (CLI) | payer MEDICARE, MEDICAID, SELFPAY ==
--- NOTE | 2025-07-01 08:30 | PET_ITS ---
PROCEDURE: PET/CT TUMOR BASE -THIGH INIT 07/01/2025 REASON FOR EXAM: 69 y/o M with ABNORMAL FINDINGS IN LUNG FIELD Following hypermetabolic nodule posterior right lower lobe. TECHNIQUE: Following the intravenous administration of radionucleotide, image acquisition on a dedicated PET/CT unit was performed at one hour post injection. A preliminary CT study encompassing the Skull base, neck, chest, abdomen, pelvis, and proximal thighs was performed for purposes of attenuation correction and anatomic localization. The proximal thighs were also included. The patient's blood glucose level was 91 mg/dL (allowable range: 50-180 mg/dL). RADIOPHARMACEUTICAL: 12.96 mCi 18F-FDG (Fluorodeoxyglucose F18) IV was injected into he patient. RADIATION DOSE SUMMARY: Effective Dose: Approximately 7 mSv for a standard whole-body PET scan Organ Doses: Varies by organ, with higher doses typically to the bladder, liver, and brain COMPARISON: COMPARISON FROM CT, PET OR OTHER PERTINENT EXAMS: Chest CT of 06/18/2025 and PET-CT 03/11/2025. FINDINGS: Physiologic uptake: There may be expected metabolic uptake within the brain, tongue and floor of the mouth and larynx/vocal cords, heart, gavin (many normal individuals have hilar uptake in less than 3 nodes with mildly avid hilar nodes less than 2.7 SUV), liver and spleen, system, and GI tract and symmetric muscle uptake. FDG AVID AND NON-AVID LESIONS. Reported avid SUV values (g/mL*) are maximum SUV. NECK: There are no significant neck abnormalities. CHEST: Chest wall- There are no significant chest wall abnormalities. Axilla- There are no significant axillary abnormalities. Lung parenchyma- Progressive worsening metabolic activity of the posterior right lower lobe nodule is seen, now with SUV max of 4.5 (versus 2.9 in the study of 03/11/2025). No new focus of thoracic hypermetabolic activity is seen. Mild pulmonary emphysema is seen. Mediastinum- There are no significant hilar or mediastinal adenopathy. Pleura- There are no significant pleural abnormalities. Prominent coronary artery calcification is noted. ABDOMEN: Moderate to moderately severe arterial calcification is seen, including involving the aorta; no evidence of abdominal aortic aneurysm. Prior cholecystectomy. Stomach- No significant abnormalities. Liver- No significant abnormalities. Spleen- No significant abnormalities. Pancrease- No significant abnormalities. Kidneys- No significant abnormalities. Bowel- Normal bowel activity. Spine- No significant abnormalities. PELVIS: Bowel- Normal physiologic bowel activity is identified. Masses- There are no pelvic masses. Bones- Degenerative changes of the spine are noted. With the use of bone window settings, there are no osteolytic or osteoblastic lesions. There are no FDG avid lesions within the visualized portion of the axial skeleton. PET/PET/CT Tumor Base -Thigh Init IMPRESSION: FDG avid- Progressive worsening of hypermetabolic activity in the posterior right lower l obe nodule. This is concerning for the presence of malignancy. Other: 1. Prior cholecystectomy. 2. Prominent coronary artery calcification. 3. Mild pulmonary emphysema. Please note the low-dose CT scan was performed to facilitate PET image reconstr uction and anatomic localization and does not replace a diagnostic CT. Any diagnostic CT requested and performed at the time of the PET will be reported separately. Reading Location: [place] [id number]
== END | disposition home or self-care (01) ==
PROVIDERS: PCP Nurse Practitioner Family; Referring Provider Nurse Practitioner Acute Care; Visit Provider Nurse Practitioner Acute Care
DX: R91.8 Other nonspecific abnormal finding of lung field (principal)
CPT/HCPCS: 78815; A9552

== ENCOUNTER → 2025-07-03 | Outpatient (CLI) | payer MEDICARE, MEDICAID, SELFPAY ==
[2025-07-03 14:50] LABS: Platelet Count 296 K/mm3 (150-450)
[2025-07-03 15:21] LABS: Prothrombin Time (Protime)PT. 13.6 SECONDS (11.7-14.9)
[2025-07-03 15:22] LABS: Partial Thromboplast Time 30.1 Seconds (24.1-36.2)
[2025-07-03 22:47] LABS: Xtra Tube EP Lab EXTRA TUBE
== END | disposition home or self-care (01) ==
LOC: PAVLAB 14:38
PROVIDERS: PCP Nurse Practitioner Family; Referring Provider Nurse Practitioner Acute Care; Visit Provider Nurse Practitioner Acute Care
DX: J90 Pleural effusion, not elsewhere classified (principal); I48.91 Unspecified atrial fibrillation; I10 Essential (primary) hypertension
CPT/HCPCS: 36415; 84155; 85049; 85610; 85730

== ENCOUNTER → 2025-07-08 | Outpatient (CLI) | payer MEDICARE, MEDICAID, SELFPAY ==
--- NOTE | 2025-07-08 12:59 | CT_ITS ---
PROCEDURE: ABDOMEN WITHOUT IV CONTRAST 07/08/2025 REASON FOR EXAM: ABDOMINAL MASS Right side of the umbilicus. Prior hernia repair. TECHNIQUE: ABDOMEN WITHOUT IV CONTRAST coronal and Sagittal reconstruction series were provided. One or more dose reduction techniques were used (e.g., Automated exposure control, adjustment of the mA and/or kV according to patient size, use of iterative reconstruction technique CONTRAST: None RADIATION DOSE SUMMARY: CTDlvol: 8.5 mGy DLP: 392.41 mGycm COMPARISON: Prior study dated June 13, 2023. FINDINGS: Noncontrast technique limits evaluation of the abdominal viscera. Lung bases: The lung bases are clear. Coronary artery calcification. Small hiatal hernia. Liver: Borderline hepatomegaly. No focal lesion is seen. Gallbladder: Surgically absent. Spleen: Normal size. Pancreas: Diffuse fatty atrophy. Adrenals: Unremarkable Kidneys: Normal renal sizes. No hydronephrosis. Bowel: Sigmoid diverticulosis. Lymph nodes: No retroperitoneal lymph nodes are seen. Vasculature: Mild diffuse atherosclerotic calcifications are noted. Peritoneum / Retroperitoneum: Prior bilateral inguinal hernia repair. Prior appendectomy. No evidence of umbilical hernia at this time. Bones: Degenerative changes of the spine. CT/Abdomen without IV Contrast IMPRESSION: Borderline hepatomegaly. Status post cholecystectomy. Evidence of prior bilateral inguinal hernia repair. No umbilical hernia is seen at this time. Reading Location: [facility]
== END | disposition home or self-care (01) ==
LOC: CT 12:58
PROVIDERS: PCP Nurse Practitioner Family; Referring Provider Surgery; Visit Provider Surgery
DX: R19.00 Intra-abdominal and pelvic swelling, mass and lump, unspecified site (principal)
CPT/HCPCS: 74150

== ENCOUNTER → 2025-08-04 | Outpatient (CLI) | payer MEDICARE, MEDICAID, SELFPAY ==
[2025-08-04 15:38] LABS: AST(SGOT) 19 U/L (<=37); Alanine Aminotransfer ALT/SGPT 8 U/L (<=46); Albumin, Serum 3.9 g/dL (3.4-4.8); Alkaline Phosphatase 52 U/L (40-129); Bilirubin, Direct 0.11 mg/dL (0.00-0.30); Cholesterol 147 mg/dL (<=200); Globulin 3.5 g/dL (2.2-4.2); Low Density Lipoprotein Calc. 89 mg/dL; Triglycerides 145 mg/dL; Very Low Density Lipoprotein 29 mg/dL (5-40); cholesterol:hdl ratio screen 5.00
== END | disposition home or self-care (01) ==
LOC: MTLAB 10:57
PROVIDERS: PCP Nurse Practitioner Family; Referring Provider Student in an Organized Health Care Education/Training Program; Visit Provider Student in an Organized Health Care Education/Training Program
DX: I25.10 Atherosclerotic heart disease of native coronary artery without angina pectoris (principal); E78.5 Hyperlipidemia, unspecified; Z95.5 Presence of coronary angioplasty implant and graft
CPT/HCPCS: 36415; 80061; 80076

== ENCOUNTER 2025-08-14 07:52 | Outpatient (CLI) | payer MEDICARE, MEDICAID, SELFPAY ==
[2025-08-14] VITALS (16 sets, daily range): BP systolic 146–196; BP diastolic 78–104; PULSE 63–78; RESP 9–19; TEMP 36.7; O2SAT 95–99; BMI 26.9
--- NOTE | 2025-08-14 08:02 | CT_ITS ---
PROCEDURE: BIOPSY/INJ OR NEEDLE PLACEMENT 08/14/2025 REASON FOR EXAM: RLL PET POSITIVE TECHNIQUE: Procedure Code: CTBX Modality: CT Procedure: BIOPSY/INJ OR NEEDLE PLACEMENT CT-guided biopsy of a right lower lobe nodule. The procedure as well as the benefits and possible complications including infection and bleeding were explained to the patient. Possible pneumothorax complication explained as well. Informed consent was obtained. The patient was in the prone position. The peripheral right lower lobe nodule was localized. Conscious sedation was performed. The patient received 2 mg of Versed and 50 mcg of fentanyl intravenously. Conscious sedation was started at 9:06 a.m. and terminated at 9:30 a.m.. The patient was independently monitored by the department nurse. The overlying skin was prepped and draped in usual sterile fashion. Following local anesthetic application and under direct CT guidance, a 20 gauge core biopsy needle system was placed into the nodule. 5 core biopsies were obtained and submitted for assessment. The specimen was deemed adequate. RADIATION DOSE SUMMARY: CTDlvol: 12.25 mGy DLP: 780.83 mGycm COMPARISON: Prior CT scan of the chest dated June 18, 2025. FINDINGS: Successful CT-guided core biopsies of the peripheral based right lower lobe nodule. CT/Biopsy/Inj or Needle Placement IMPRESSION: Successful CT-guided core biopsies of the right lower lobe nodule as described. The patient tolerated the procedure well. No immediate complication noted. Reading Location: [place] [id number]
[2025-08-14 08:06] LABS: Hematocrit 45.9 % (40-54); Hemoglobin 15.1 g/dL (13.0-16.5); Immature Granulocytes Count 0.050 X10^3/uL (0.0-0.0); Mean Corp Hgb Conc 32.9 g/dL (32-36); Mean Corpuscular Volume 85.5 fL (80-94); Mean Platelet Vol. 8.9 fl (6.2-12.0); NRBC Flagged by Analyzer 0 % (0-5); POSITIVE DIFFERENTIAL YES; Platelet Count 305 K/mm3 (150-450); RBC Distribution Width CV 14.7 % (11.6-14.6); RBC Distribution Width SD 45.7 fl (35.1-43.9); Red Blood Count 5.37 M/mm3 (4.6-6.2); White Blood Count 14.8 K/mm3 (4.4-11.0)
[2025-08-14 08:14] LABS: Prothrombin Time (Protime)PT. 13.3 SECONDS (11.7-14.9)
[2025-08-14 08:15] LABS: Partial Thromboplast Time 29.8 Seconds (24.1-36.2)
[2025-08-14] MEDS: 0.9% Normal Saline (250mL Bag) 250 ML 15 ML IV (09:04)
[2025-08-14] MEDS: Midazolam 2 MG/2 ML Syringe IV ×2 (09:06→09:21)
[2025-08-14] MEDS: fentaNYL 100 MCG/2 ML Ampul IV ×2 (09:08→09:24)
[2025-08-14] MEDS: Lidocaine 2% (20 ml mdv) 20 ML Vial INFILT (09:26)
--- NOTE | 2025-08-14 09:30 | ASPIGT_PTH ---
PATIENT: ESTEBAN JAMISON LOC: [place] U#:[id number] AGE/SX: 70/M ROOM: RE08/14/[address]: SOL Kerr : 1955 BED: DIS: 08/14/2025 SPEC #: [id number] RECD: 08/14/25 09:45 STATUS: CHAI RESharona #: [id number] ANKIA: 08/14/25 09:[address]: Martha Go NP DEPT: SURGICAL PATHOLOGY RECD BY: Yosef Lizarraga ENTERED: 08/14/25 10:35 SP TYPE: ASP RAD OTHR DR: SOL ROSS Tissues: A - Lung, NOS Procedures: FNA Specimen Adequacy Special Stain Group II Surgery Specimen Level IV Imprint (control) HEADER OPERATION: CT guided right lung biopsy PRE-OP DIAGNOSIS: Right lower lobe lung nodule TISSUE SUBMITTED: A- Lung biopsy - 20 gauge x 5 cores MICROSCOPIC DIAGNOSIS A. Right lung, CT-guided core biopsy: * Alveolar pulmonary parenchymal with pigment-laden macrophages, siderophages, focal alveolar hemorrhage, and chronic inflammation. * No malignancy identified in these sections. COMMENT The specimen is evaluated at the time of biopsy by Dr. Turner. Immediate Evaluation = 3. Non-diagnostic. 4. Adequate. MICROSCOPIC DESCRIPTION Slides are reviewed. GROSS DESCRIPTION A. Received in formalin labeled with the patient's name and date of . Designated as CT RLL lung BX are multiple salomon-red wispy tissue core fragments, 1.0 x 0.5 x 0.1 cm in aggregate. Touch preparations are made. Entirely submitted in 2 cassettes. AR 08/14/2025 CPT:57784,53443
--- NOTE | 2025-08-14 09:40 | RAD_ITS ---
PROCEDURE: CHEST INSP/EXP 2 VIEW 08/14/2025 REASON FOR EXAM: POST LUNG BIOPSY TECHNIQUE: Procedure Code: RADCXRINSPEXP Modality: DX Procedure: CHEST INSP/EXP 2 VIEW Inspiration expiration views following the biopsy. COMPARISON: None FINDINGS: EKG electrodes are seen. No evidence of pneumothorax following the CT-guided right lung biopsy. Persistent nodular density in the right midlung. Incidental note is made of a azygous lobe. This is a normal variant. RAD/Chest Insp/Exp 2 View IMPRESSION: Status post right lung biopsy. No evidence of pneumothorax. Reading Location: [place] [address]
--- NOTE | 2025-08-14 11:45 | RAD_ITS ---
PROCEDURE: CHEST INSP/EXP 2 VIEW 08/14/2025 REASON FOR EXAM: POST LUNG BIOPSY 2 hour post right lung biopsy radiographs. TECHNIQUE: Procedure Code: RADCXRINSPEXP Modality: DX Procedure: CHEST INSP/EXP 2 VIEW COMPARISON: Prior study done earlier in the day. FINDINGS: No evidence of pneumothorax on the 2 hour post right lung biopsy radiographs. RAD/Chest Insp/Exp 2 View IMPRESSION: No evidence of pneumothorax on the 2 hour post right lung biopsy radiographs. Reading Location: [place] [id number]
--- NOTE | 2025-08-14 12:00 | NURSING ---
MohanRN offers to call [facility] or take pt to ED due to high blood pressure. Pt is insistent on going home. Pt reports typically taking b/p medication between 11a/12p every day. Pt is aware b/p is elevated and states It's all over the place, they've been trying to figure it out for 3 years. I'll be ok.
== END 2025-08-14 23:59 | disposition home or self-care (01) ==
PROVIDERS: Radiology Diagnostic Radiology; PCP Nurse Practitioner Family; Referring Provider Nurse Practitioner Acute Care; Visit Provider Nurse Practitioner Acute Care
DX: R91.8 Other nonspecific abnormal finding of lung field (principal); E11.9 Type 2 diabetes mellitus without complications; I25.10 Atherosclerotic heart disease of native coronary artery without angina pectoris; I10 Essential (primary) hypertension; I25.2 Old myocardial infarction; E78.5 Hyperlipidemia, unspecified; F17.210 Nicotine dependence, cigarettes, uncomplicated; Z95.5 Presence of coronary angioplasty implant and graft; Z79.01 Long term (current) use of anticoagulants; Z79.02 Long term (current) use of antithrombotics/antiplatelets; Z79.84 Long term (current) use of oral hypoglycemic drugs; Z79.899 Other long term (current) drug therapy
CPT/HCPCS: 32408; 36415; 71046; 77012; 85025; 85610; 85730; 88172; 88305; 88313; 99156; 99157; A4216; C2613